=== PATIENT | male | born 1940 | race Caucasian/White ===

== ENCOUNTER → 2023-04-21 12:43 | Outpatient (CLI) | payer MEDICARE, SELFPAY ==
[2023-04-21 13:14] LABS: Basophils # 0.1 K/mm3 (0-0.2); Basophils % 1.2 % (0.1-2.0); Eosinophils # 0.3 K/mm3 (0.0-0.4); Hematocrit 46.7 % (42.0-52.0); Hemoglobin 14.5 g/dL (14.1-18.0); Lymphocytes # 1.8 K/mm3 (0.7-4.5); Lymphocytes % 23.8 % (10-50); Mean Corpuscular HGB Conc 31.1 g/dL (31.8-35.4); Mean Corpuscular Hemoglobin 30.1 pg (27.0-31.2); Mean Corpuscular Volume 96.8 fl (80-94); Mean Platelet Volume 8.6 fl (7.4-10.4); Monocytes # 0.6 K/mm3 (0.1-1.0); Monocytes % 8.1 % (1.7-9.3); Neutrophils # 4.7 K/mm3 (1.8-7.8); Neutrophils % 62.9 % (37.0-80.0); Platelet Count 263 K/mm3 (142-424); Red Blood Count 4.82 M/mm3 (4.60-6.20); White Blood Count 7.4 K/mm3 (4.8-10.8)
[2023-04-21 13:49] LABS: Anion Gap 17.4 mEq/L (5-15); Blood Urea Nitrogen 19 mg/dl (9-20); Calcium 8.8 mg/dl (8.4-10.2); Carbon Dioxide 23 mmol/L (22.0-30.0); Chloride 103 mmol/L (98-107); Estimated Glomerular Filt Rate 81 ml/min (>60); GFR (African American) 98 ML/MIN (>60); Glucose 101 mg/dl (74-100); Potassium 4.4 mmoL/L (3.5-5.1); Sodium 139 mmol/L (136-145)
[2023-04-21 13:51] LABS: Alanine Aminotransferase 56 U/L (12-78); Albumin Level 4.3 g/dl (3.5-5.0); Alkaline Phosphatase 130 U/L (38-126); Aspartate Amino Transferase 49 U/L (17-59); Bilirubin,Unconjugated 0.9 mg/dL (0.0-1.1); Chol/HDL Ratio 3.6 (1-3.5); Cholesterol 165 mg/dl (140-200); HDL Cholesterol 46 mg/dl (40-60); Total Protein,Serum 7.5 g/dl (6.3-8.2); Triglycerides 108 mg/dl (30-150); VLDL Cholesterol 22 mg/dL (0-40)
[2023-04-21 14:02] LABS: Direct LDL Cholesterol 93.76 mg/dL (100-129)
[2023-04-21 14:06] LABS: Free T4 (Free Thyroxine) 1.64 ng/dl (0.78-2.19)
[2023-04-21 14:21] LABS: Thyroid Stimulating Hormone 1.38 uIU/mL (0.465-4.68)
== END ==
PROVIDERS: Visit Provider Internal Medicine
DX: I45.10 Unspecified right bundle-branch block (principal); I48.91 Unspecified atrial fibrillation; R01.1 Cardiac murmur, unspecified; R06.00 Dyspnea, unspecified; E11.9 Type 2 diabetes mellitus without complications; I63.9 Cerebral infarction, unspecified; I11.9 Hypertensive heart disease without heart failure
CPT/HCPCS: 36415; 80048; 80061; 80076; 84439; 84443; 85025; 93306

== ENCOUNTER 2024-01-11 12:43 | Outpatient (CLI) | payer MEDICARE, SELFPAY ==
[2024-01-11 13:10] LABS: Basophils # 0.1 K/mm3 (0-0.2); Basophils % 1.3 % (0.1-2.0); Eosinophils # 0.3 K/mm3 (0.0-0.4); Eosinophils % 3.5 % (0.1-12.0); Hematocrit 38.9 % (42.0-52.0); Hemoglobin 12.2 g/dL (14.1-18.0); Lymphocytes # 1.6 K/mm3 (0.7-4.5); Lymphocytes % 22.7 % (10-50); Mean Corpuscular HGB Conc 31.4 g/dL (31.8-35.4); Mean Corpuscular Hemoglobin 32.9 pg (27.0-31.2); Mean Corpuscular Volume 104.7 fl (80-94); Monocytes # 0.7 K/mm3 (0.1-1.0); Neutrophils # 4.5 K/mm3 (1.8-7.8); Neutrophils % 62.4 % (37.0-80.0); Platelet Count 247 K/mm3 (142-424); Red Blood Count 3.72 M/mm3 (4.60-6.20); Red Cell Distribution Width 15.3 % (11.5-17.5); White Blood Count 7.2 K/mm3 (4.8-10.8)
[2024-01-11 13:49] LABS: Albumin Level 4.5 g/dl (3.5-5.0); Alkaline Phosphatase 129 U/L (38-126); Bilirubin,Direct 0.2 mg/dl (0.0-0.4); Bilirubin,Indirect 1.2 mg/dL (0.0-0.9); Bilirubin,Total 1.4 mg/dl (0.2-1.3); Bilirubin,Unconjugated 1.1 mg/dL (0.0-1.1); Calcium 8.9 mg/dl (8.4-10.2); Carbon Dioxide 18 mmol/L (22.0-30.0); Cholesterol 162 mg/dl (140-200); Glucose 105 mg/dl (74-100); HDL Cholesterol 41 mg/dl (40-60); Potassium 4.2 mmoL/L (3.5-5.1); Sodium 141 mmol/L (136-145); Total Protein,Serum 7.7 g/dl (6.3-8.2); Triglycerides 64 mg/dl (30-150); VLDL Cholesterol 13 mg/dL (0-40)
[2024-01-11 14:02] LABS: Direct LDL Cholesterol 94.07 mg/dL (100-129)
[2024-01-11 14:06] LABS: Free T4 (Free Thyroxine) 1.51 ng/dl (0.78-2.19)
[2024-01-11 14:41] LABS: Anion Gap 15.2 mEq/L (5-15); Blood Urea Nitrogen 34 mg/dl (9-20); Chloride 112 mmol/L (98-107); Estimated Glomerular Filt Rate 58 ml/min (>60); GFR (African American) 70 ML/MIN (>60)
[2024-01-11 15:13] LABS: Thyroid Stimulating Hormone 2.23 uIU/mL (0.465-4.68)
[2024-01-11 15:42] LABS: Alanine Aminotransferase 22 U/L (12-78); Aspartate Amino Transferase 30 U/L (17-59)
== END 2024-01-11 23:59 ==
LOC: LAB 12:44
PROVIDERS: PCP Family Medicine; Visit Provider Internal Medicine
DX: R06.00 Dyspnea, unspecified (principal); R01.1 Cardiac murmur, unspecified; I48.91 Unspecified atrial fibrillation; I45.10 Unspecified right bundle-branch block; R60.9 Edema, unspecified; K21.9 Gastro-esophageal reflux disease without esophagitis; I11.9 Hypertensive heart disease without heart failure; Z72.0 Tobacco use
CPT/HCPCS: 36415; 80048; 80061; 80076; 84439; 84443; 85025

== ENCOUNTER 2024-03-07 12:26 | Outpatient (CLI) | payer MEDICARE, SELFPAY ==
[2024-03-07 13:08] LABS: Basophils # 0.1 K/mm3 (0-0.2); Basophils % 1.2 % (0.1-2.0); Eosinophils # 0.1 K/mm3 (0.0-0.4); Eosinophils % 1.7 % (0.1-12.0); Hematocrit 37.3 % (42.0-52.0); Hemoglobin 11.9 g/dL (14.1-18.0); Lymphocytes # 1.2 K/mm3 (0.7-4.5); Lymphocytes % 22.9 % (10-50); Mean Corpuscular Hemoglobin 32.2 pg (27.0-31.2); Mean Corpuscular Volume 100.5 fl (80-94); Mean Platelet Volume 8.9 fl (7.4-10.4); Monocytes # 0.5 K/mm3 (0.1-1.0); Monocytes % 9.3 % (1.7-9.3); Neutrophils # 3.3 K/mm3 (1.8-7.8); Neutrophils % 64.9 % (37.0-80.0); Platelet Count 219 K/mm3 (142-424); Red Blood Count 3.71 M/mm3 (4.60-6.20); Red Cell Distribution Width 16.4 % (11.5-17.5)
[2024-03-07 13:33] LABS: Anion Gap 18.1 mEq/L (5-15); Blood Urea Nitrogen 20 mg/dl (9-20); Carbon Dioxide 16 mmol/L (22.0-30.0); Chloride 111 mmol/L (98-107); Estimated Glomerular Filt Rate 72 ml/min (>60); Potassium 4.1 mmoL/L (3.5-5.1); Sodium 141 mmol/L (136-145)
[2024-03-07 13:34] LABS: Alanine Aminotransferase 24 U/L (12-78); Albumin Level 4.3 g/dl (3.5-5.0); Alkaline Phosphatase 145 U/L (38-126); Aspartate Amino Transferase 36 U/L (17-59); Bilirubin,Direct 0.6 mg/dl (0.0-0.4); Bilirubin,Indirect 1.3 mg/dL (0.0-0.9); Bilirubin,Total 1.9 mg/dl (0.2-1.3); Bilirubin,Unconjugated 1.3 mg/dL (0.0-1.1); Calcium 9.1 mg/dl (8.4-10.2); Chol/HDL Ratio 2.6 (1-3.5); Cholesterol 150 mg/dl (140-200); GFR (African American) 87 ML/MIN (>60); Glucose 98 mg/dl (74-100); HDL Cholesterol 58 mg/dl (40-60); Total Protein,Serum 7.4 g/dl (6.3-8.2); Triglycerides 81 mg/dl (30-150); VLDL Cholesterol 16 mg/dL (0-40)
[2024-03-07 13:45] LABS: C-Reactive Protein 9.1 mg/L (0-4); Direct LDL Cholesterol 83.88 mg/dL (100-129)
[2024-03-07 13:51] LABS: Free T4 (Free Thyroxine) 1.71 ng/dl (0.78-2.19)
--- NOTE | 2024-03-07 13:57 | US_ITS ---
FINAL REPORT CLINICAL HISTORY: alcohol intake, weight loss, edema FINDINGS: RIGHT UPPER QUADRANT ULTRASOUND Sonographic images of the right upper quadrant were obtained. The pancreas is partially obscured.The liver has an unremarkable appearance.The gallbladder appears normal without evidence of gallstones.The common duct measures 6 mm which is normal for age. There is a 2.6 cm cyst or mass in the right kidney. IMPRESSION: Cyst or mass in the right kidney. Recommend renal mass protocol CT. Reviewed, Interpreted and Dictated by Camron Hill III, MD Transcribed by Joselin Franco Authenticated and [facility]
[2024-03-07 14:04] LABS: Prostate Specific Ag Screen 2.7 ng/ml (0.0-4.0); Thyroid Stimulating Hormone 1.06 uIU/mL (0.465-4.68)
[2024-03-07 14:33] LABS: Erythrocyte Sedimentation Rate 41 mm/hr (0-20)
[2024-03-07 14:40] LABS: Vitamin B12 499 pg/mL (239-931)
[2024-03-07 14:43] LABS: Folate 7.34 ng/mL
[2024-03-07 15:14] LABS: Reticulocyte % (Auto) 1.8 % (0.9-3.2)
[2024-03-14 01:12] LABS: 1,25 Dihydroxy Vitamin D 52 pg/mL (.); 1,25-Dihydroxy, Vitamin D-2 <10 pg/mL (.); 1,25-Dihydroxy, Vitamin D-3 42 pg/mL (.)
== END 2024-03-07 23:59 | disposition home or self-care (01) ==
PROVIDERS: Nurse Practitioner Family; PCP Family Medicine; Visit Provider Internal Medicine
DX: R60.9 Edema, unspecified (principal); I48.91 Unspecified atrial fibrillation; I20.89 Other forms of angina pectoris; R06.00 Dyspnea, unspecified; F10.20 Alcohol dependence, uncomplicated; R63.4 Abnormal weight loss; Z12.5 Encounter for screening for malignant neoplasm of prostate; G62.9 Polyneuropathy, unspecified; D64.9 Anemia, unspecified; Z79.899 Other long term (current) drug therapy; R26.81 Unsteadiness on feet
CPT/HCPCS: 36415; 76705; 80048; 80061; 80076; 82607; 82652; 82746; 83735; 84439; 84443; 85025; 85044; 85651; 86140; G0103

== ENCOUNTER 2024-03-23 12:07 | Outpatient (CLI) | payer MEDICARE, SELFPAY ==
--- NOTE | 2024-03-23 12:08 | CT_ITS ---
APPROVED REPORT Interior Design Director: CLINICAL INDICATION Chest Pain TECHNIQUE Image Acquisition: A 128 slice MDCT scanner ([employer] Boarda View) was used for data acquisition. A noncontrast coronary calcium scan was performed. A CT attenuation threshold of 130 Hounsfield units (HU) was used for the detection of calcium in contiguous voxels of 1 sq mm in area to be counted as individual lesions. Bolus tracking in the ascending aorta with a threshold of 180 HU was performed. Immediately afterwards, ECG synchronized cardiac CT was then performed from the cardiac base to apex using retrospective gating with ECG tube current modulation. A total of 85 mL of Isovue 370 mg/mL contrast medium was administered at 5 mL/sec followed by a saline flush using a biphasic injection protocol. A tube voltage of 120 KVp was used. The patient received the following medications prior to the cardiac CT. 0.8 mg of sublingual nitroglycerin The average heart rate at the time of acquisition was 57 bpm and regular. Image Reconstruction Transaxial images were reconstructed at 0.67 mm slide thickness. Data was reviewed interactively on an advanced workstation capable of 2 and 3-dimensional displays in all conventional reconstruction formats, including multiplanar reformations, maximum intensity projections, curved multiplanar reformations, and volume rendered reconstructions. When applicable, selected routine images describing the relevant coronary anatomy and pathology were saved and sent to PACS. Complications None Technical Quality Overall image quality was good. Coronary artery opacification was adequate. Total DLP (Dose-Length Product) is 3001.9 mGy-cm. The reported value represents the total of one or more individual components during the CT acquisition of this date and at this time, and as such, the same value may appear in more than one CT report depending on the interpreting/reporting physicians. COMPARISON None FINDINGS CT Coronary Calcium Scoring LMA (Left Main Artery) = 80 LAD (Left Anterior Descending) = 1627 LCX (Left Coronary Circumflex) = 375 RCA (Right Coronary Artery) = 1515 Total Calcium Score = 3597 using the AJ-130 method. The observed calcium score of 3597 is at 91st percentile for subjects of the same age, sex, and race/ethnicity. The interpretation of the calcium heart score is based on the following continuum*: 0 = no calcified plaque detected (risk of coronary artery disease is very low ??? less than 5%) 1-10 = calcium detected in extremely minimal levels (risk of coronary diseases is still low ??? less than 10%) 11-100 = mild levels of plaque detected with certainty (mild or minimal narrowing of heart arteries is likely) 101-400 = definite,at least moderate levels of plaque detected (relatively high risk of a heart attack within 3-5 years) >401-999 = extensive levels of plaque detected (high risk of heart attack, high levels of vascular disease are present, high likelihood of at least one significant coronary narrowing) *The calcium heart score quantifies the burden of coronary calcification/plaque in the coronary arteries. The calcium heart score is not able to evaluate the presence or burden of non-calcified (i.e. soft) plaque. There is also identifiable calcification in the aortic valve, mitral annulus, and ascending and descending thoracic aorta. Coronary CT Angiography The coronary arterial system is right dominant. Quantitative Stenosis Grading: Left Main (LM): The left main originates normally from the left sinus of Valsalva. The LM bifurcates into the left anterior descending artery and left circumflex artery. There is calcified plaque in the distal LM, with up to 25-49% luminal stenosis. Left Anterior Descending (LAD) and Diagonal Branches: The LAD gives off 3 diagonal branch(es). There is mixed calcified/noncalcified plaque in the proximal and mid LAD, with up to 70-90% luminal stenosis. There is no evidence of LAD-myocardial bridge. Left Circumflex (LCX) and Obtuse Marginals (OM): The LCX gives off 2 Obtuse Marginal (OM) branch(es). There is mixed calcified/noncalcified plaque in the proximal LCx, with up to 70-90% luminal stenosis. Right Coronary Artery (RCA): The RCA originates normally from the right sinus of Valsalva. The RCA gives off a posterior descending artery (PDA) and posterolateral (PL) branches. There is mixed calcified/noncalcified plaque in the proximal RCA, with incomplete opacification in the distal segments, suggestive of possible total/subtotal occlusion. Non-Coronary Cardiac Findings: Analysis of the left ventricular (LV) structure and function was performed after 3-D reconstruction of the LV from axial images, with user-corrected automatic contouring for assessment of LV volumes and user-defined reconstruction from oblique planes for measurement of 3-D cardiac structure and function. -The left ventricle systolic function is normal. -There is no left atrial appendage filling defect. Two right pulmonary veins and two left pulmonary veins drain normally into the left atrium. -No pericardial thickening or calcification. -Central and branch pulmonary arteries in the [id number] are unremarkable. -Thoracic aorta within the visualized thoracic aortic-branches in the [id number] is unremarkable. Extracardiac Structures No significant extra-cardiac findings. Note, however, that this study is focused on the cardiac findings. IMPRESSION -Extensive coronary calcification with an Agatston score = 3597 using the AJ-130 method. -The observed calcium score of 3597 is at 91st percentile for subjects of the same age, sex, and race/ethnicity. -Presence of triple-vessel significant flow-limiting atherosclerosis, with possible total/subtotal occlusion of the RCA. -CAD-RADS 5. Management recommendations per ACC/AHA guidelines*, as clinically appropriate. -Incidental calcification of the aortic valve, mitral annulus, and ascending and descending thoracic aorta. *Recommendations: CAD RADS 0: Reassurance. Consider non-atherosclerotic causes of chest pain. CAD RADS 1: Consider non-atherosclerotic causes of chest pain. Consider preventive therapy and risk factor modification. CAD RADS 2: Consider non-atherosclerotic causes of chest pain. Consider preventive therapy and risk factor modification, particularly for patients with nonobstructive plaque in multiple segments. CAD RADS 3: Consider further functional testing. Consider symptom-guided anti-ischemic and preventive pharmacotherapy as well as risk factor modification per published guideline statements. CAD RADS 4A: Consider further functional testing or invasive coronary angiography with revascularization per published guideline statements. Consider symptom-guided anti-ischemic and preventive pharmacotherapy as well as risk factor modification per published guideline statements. CAD RADS 4B: Invasive coronary angiography recommended with revascularization per published guideline statements. Consider symptom-guided anti-ischemic and preventive pharmacotherapy as well as risk factor modification per published guideline statements. CAD RADS 5: Consider invasive angiography and/or viability assessment with revascularization per published guideline statements. Consider symptom-guided anti-ischemic and preventive pharmacotherapy as well as risk factor modification per published guideline statements. CRITICAL RESULT None COMMUNICATION Per this written report The coronary and cardiac findings of this CCTA were reviewed, reported, and signed by Britton Stevenson MD (Web Portal Developer) Conclusion Electronically signed by : Cony Stevenson MD 03/28/2024 16:26:26
[2024-03-23 12:25] VITALS: BP 126/62; PULSE 41; RESP 18; TEMP 36.6; O2SAT 99
[2024-03-23 12:33] VITALS: BMI 29.7
[2024-03-23 12:39] VITALS: BP 121/61; PULSE 44; RESP 18; O2SAT 98
[2024-03-23 12:43] VITALS: BP 126/51; PULSE 46; RESP 18; O2SAT 99
--- NOTE | 2024-03-23 12:51 | CA_ITS ---
APPROVED REPORT EXAM: Comprehensive 2D, Doppler, and color-flow Echocardiogram Photographic Process Worker: MIKAL Vazquez, RVS Ht: 6 ft 3 in Wt: 236lbs BSA: 2.35 BP: 130/56 mmHg Indications: Angina, Afib, Dyspnea, weight loss, smoker, Etoh dependent, Edema 2D Dimensions IVSd 0.80 cm LVEF (Visual) 63.60 % PWd 0.84 cm LA Volume 94.50 mL LVDd 5.36 cm LA Volume Index 39.20 mL/m2 (M/F) 16-34 LVDs 3.49 cm Left Atrium 5.95 cm M-Mode Dimensions RVDd 4.87 cm (0.9-2.6) LA Diam 5.34 cm (1.9-4.0) LVDd 5.32 cm (3.5-5.7) LVDs 3.62 cm (3.5-5.7) IVSd 1.07 cm (0.6-1.1) PWd 1.16 cm (0.6-1.1) EF (Teich) 59.60% EPSs 0.72 cm FS 32.00% EDV (Teich) 136.50 mL ESV (Teich) 55.20 mL LV Diastology E Decel Time 170 (160-240 msec) E/A Ratio 2.28 MED A' 4.60 cm/s LAT A' 7.30 cm/s Aortic Valve GERBER Index 0.42 cm2/m2 AoV Peak Tavares. 339.0 (50-130 cm/s) AO Peak GR. 46.00 mmHg AO Mean GR. 26.50 (<5 mmHg) AO VTI 89.4 (18-25 cm) GERBER (VTI) 1.01 (2.5-4.5 cm2) Mitral Valve MV A Velocity 69.0 (40-130 cm/s) E/A Ratio 2.28 Pulmonary Valve PV Peak Velocity 81.0 (50-150 cm/s) CA End VMAX 200.0 cm/s Tricuspid Valve TR P. Velocity 309.00 cm/s RAP Estimate 10.00 mmHg RVSP 48.20 mmHg Left Ventricle The left ventricle is normal size. The left ventricular systolic function is normal. The left ventricular ejection fraction is within the normal range. There is normal left ventricular wall thickness. There is normal LV segmental wall motion. Diastolic function is indeterminate. LVEF is 55%. Right Ventricle Right ventricle is moderately dilated. Right ventricle is mildly to moderately hypokinetic. Atria Left atrium is mildly dilated. Right atrium is mildly dilated. There is no Doppler evidence of interatrial shunt. Aortic Valve The aortic valve is moderately thickened. Moderate to severe aortic stenosis. Peak velocity 3.8 m/s. Mean AV gradient 38 mmHg. Max AV gradient 90 mmHg. GERBER by continuity equation is 1.1 cm2. SVi 38 ml/m2. Mild aortic regurgitation. Mitral Valve The mitral valve leaflets are mildly thickened. Mild mitral regurgitation. No evidence of mitral valve stenosis. Tricuspid Valve The tricuspid valve leaflets are thin and pliable. Moderate tricuspid regurgitation. RVSP is 40 mmHg + RA pressure. Pulmonic Valve The pulmonary valve is normal in structure. Mild pulmonic regurgitation. Great Vessels The aortic root is normal in size. The ascending aorta is not well-visualized. The IVC is not well-visualized. Pericardium Small sized, circumferential pericardial effusion is present. The largest pocket is noted posteriorly and measures 0.5 cm in diastole. No acute indications of tamponade. Other Information Study Quality: Fair Conclusion Normal LV systolic function. Moderate RV dilation with mild to moderate reduction in RV function. Biatrial dilation. Moderate to severe (peak velocity 3.8 m/s. Mean AV gradient 38 mmHg. Max AV gradient 90 mmHg. GERBER by continuity equation is 1.1 cm2. SVi 38 ml/m2) Mild AI, mild MR, mild PI. Moderate TR. Elevated RVSP 40 mmHg + RA pressure. Compared to prior study from 04/21/2023, the AV peak velocity and gradients, and therefore the severity of , are now worse. Electronically signed by : Cony Stevenson MD 03/29/2024 03:14:14
[2024-03-23 13:00] VITALS: BP 156/63; PULSE 42; RESP 18; O2SAT 99
[2024-03-23 13:03] VITALS: BP 118/42; PULSE 57; RESP 18; O2SAT 99
[2024-03-23 13:09] VITALS: BP 90/46; PULSE 62; RESP 18; O2SAT 98
[2024-03-23] MEDS: IOPAMIDOL-370 (76%);100ML BOTTLE 90 ML IV (13:20)
[2024-03-23] MEDS: 0.9 % SODIUM CHLORIDE 50 ML VIAL IV (13:20)
[2024-03-23] MEDS: SODIUM CHLORIDE 0.9% 10ML SYR (RAD ONLY) 10 ML IV (13:20)
[2024-03-23] MEDS: NITROGLYCERIN 0.4MG SL TABLET 0.800000000000000044 MG SL (13:20)
== END 2024-03-23 13:26 | disposition home or self-care (01) ==
PROVIDERS: PCP Family Medicine; Visit Provider Internal Medicine
DX: R60.9 Edema, unspecified (principal); I48.91 Unspecified atrial fibrillation; I20.89 Other forms of angina pectoris; R06.00 Dyspnea, unspecified; F10.20 Alcohol dependence, uncomplicated; R63.4 Abnormal weight loss; R94.31 Abnormal electrocardiogram [ECG] [EKG]
CPT/HCPCS: 75574; 93306; Q9967

== ENCOUNTER 2024-03-29 12:46 | Outpatient (CLI) | payer MEDICARE, SELFPAY ==
--- NOTE | 2024-03-29 13:02 | CT_ITS ---
FINAL REPORT TECHNIQUE: Axial CT images of the abdomen and pelvis were obtained before and after the administration of IV contrast. This study was performed with techniques to keep radiation doses as low as reasonably achievable (ALARA). Individualized dose reduction techniques using automated exposure control or adjustment of mA and/or kV according to the patient''s size were employed. CLINICAL HISTORY: renal mass protocol FINDINGS: Abdomen: There is a right lower lobe nodule measuring 7 mm. Bilateral lower lobe atelectasis is identified with small pleural effusions. There is cardiomegaly. Small pericardial effusion is noted. The liver has an unremarkable appearance, without evidence of mass or biliary duct dilatation. Gallstones are suspected. The spleen is unremarkable. No adrenal masses present. The pancreas has an unremarkable appearance. No renal mass is identified. There is bilateral wall thickening of the ureters in the renal collecting systems. Since this is diffuse, it is favored to be inflammatory. There is no adenopathy. There is a small amount of ascites. Precontrast images demonstrate no evidence of nephrolithiasis. There is moderate vascular calcification. Significant calcification is seen in the region of the aortic valve leaflets. Pelvis: The appendix is not well visualized. The prostate is diffusely enlarged. There is diffuse bladder wall thickening. There is a small amount of pelvic ascites. There is diffuse colonic diverticulosis without evidence of diverticulitis. There is no evidence of mass or adenopathy. There is no evidence of bowel obstruction. IMPRESSION: No renal stone or mass. Calcifications in the region of the aortic valve leaflets. Diffuse mild urothelial thickening which is nonspecific, likely inflammatory. Diffuse bladder wall thickening, likely inflammatory. Reviewed, Interpreted and Dictated by Camron Hill III, MD Transcribed by Joselin Franco Authenticated and [facility]
== END 2024-03-29 23:59 | disposition home or self-care (01) ==
LOC: RAD 12:49
PROVIDERS: PCP Family Medicine; Visit Provider Internal Medicine
DX: N28.1 Cyst of kidney, acquired (principal); N28.89 Other specified disorders of kidney and ureter
CPT/HCPCS: 74178; Q9967

== ENCOUNTER 2024-03-31 08:48 | Day surgery (SDC) | payer MEDICARE, SELFPAY ==
[2024-03-31] VITALS (12 sets, daily range): BP systolic 106–152; BP diastolic 49–71; PULSE 49–60; RESP 16–20; O2SAT 90–99; BMI 29.9
--- NOTE | 2024-03-31 07:08 | IR_ITS ---
APPROVED REPORT Patient Location: Outpatient Coater Associate: FELIPE Chavez RT (R) PROCEDURES Left heart catheterization Left ventriculogram Selective coronary angiogram INDICATION Abnormal CCTA, Coronary artery disease, Suspected severe aortic stenosis, Preoperative evaluation for TAVR Informed consent was obtained prior to the procedure. COMPLICATIONS NONE Estimated Blood Loss: LESS THAN 10 ML TECHNIQUE One percent lidocaine used to anesthetize the right anterior aspect of the wrist. The right radial artery was accessed via the Seldinger technique. A 6 Nepalese sheath was placed in the right radial artery. 2.5 mg of Verapamil, 800 mcg of nitroglycerin, 1mg Lidocaine and 5000 U Heparin were given through the arterial sheath. The papa catheter was also used to perform left heart catheterization, left ventriculogram and selective coronary angiogram. At the end of the procedure the sheath was removed good hemostasis was achieved using Traclet band, patient was transferred to the postop holding area in stable condition. ANGIOGRAPHIC RESULTS The left main artery Normal The left anterior descending artery Has proximal concentric 30% stenosis followed by mid vessel calcified 50% stenoses. The LAD is large and wraps the apex The circumflex artery Dominant with proximal calcified 20% concentric stenosis with diffuse 10 to 20% stenoses in the third obtuse marginal artery The right coronary artery Nondominant and has an ostial 50% stenosis with mid vessel calcified 50% stenoses and distal calcified 70 and 80% stenosis The PATEL ventriculogram reveals Preserved ejection fraction estimated 55% The left ventricular end-diastolic pressure 30 mmHg A 40 mm transaortic valve gradient was identified IMPRESSION Coronary artery disease as described above Preserved ejection fraction Elevated LVEDP 40 mm transaortic valve gradient PLAN 1. Patient has an appointment to see structural heart disease interventional cardiology [facility] toward the end of April. Prior to the appointment I would like to repeat the echocardiogram under Dr. Hanks's guidance to specifically assess for aortic valve stenosis 2. Medical management for coronary disease 3. Patient will be started on low-dose diuretics for the elevated LVEDP Electronically signed by : Joseph Lake MD 03/31/2024 12:48:49
[2024-03-31 09:48] LABS: Chloride 106 mmol/L (98-107); Potassium 4.2 mmoL/L (3.5-5.1); Sodium 134 mmol/L (136-145)
[2024-03-31 09:51] LABS: Anion Gap 11.2 mEq/L (5-15); Blood Urea Nitrogen 24 mg/dl (9-20); Calcium 8.5 mg/dl (8.4-10.2); Carbon Dioxide 21 mmol/L (22.0-30.0); Creatinine Clearance Estimated 81 mL/min (50-200); Estimated Glomerular Filt Rate 64 ml/min (>60); GFR (African American) 78 ML/MIN (>60); Glucose 110 mg/dl (74-100)
[2024-03-31] MEDS: LIDOCAINE 1% 10ML MDV 20 ML IJ (11:24)
[2024-03-31] MEDS: HEPARIN 1,000 UNITS/ML 10ML VIAL (CATH LAB) 10000 UNIT IV (11:24)
[2024-03-31] MEDS: VERAPAMIL 2.5MG/ML 2ML VIAL 2.5 MG IV (11:24)
[2024-03-31] MEDS: 0.9 % SODIUM CHLORIDE 500 ML 25 ML IV (11:24)
[2024-03-31] MEDS: diphenhydrAMINE 50MG/ML VIAL 50 MG IV (11:24)
[2024-03-31] MEDS: HEPARIN 1,000 UNITS/500ML NS (CATH LAB) 3000 UNIT IV (11:24)
[2024-03-31] MEDS: NITROGLYCERIN 800MCG/8ML SYR (CATH LAB) 800 MCG IA (11:25)
[2024-03-31] MEDS: FENTANYL 100MCG/2ML VIAL 50 MCG IV (11:38)
[2024-03-31] MEDS: MIDAZOLAM HCL 1MG/1ML 5ML VIAL 1 MG IV (11:38)
--- NOTE | 2024-03-31 13:21 | SUR.PHASEII ---
Dr. Lake changing pt's medications (Losartan stopped, Amlodipine stopped, Diovan HCTZ was added). Pt and pt's educated per Dr. Lake and Boiler Repairman staff.
[2024-03-31] MEDS: IOPAMIDOL-370 (76%);100ML BOTTLE 90 ML IV (13:36)
== END 2024-03-31 14:54 | disposition home or self-care (01) ==
PROVIDERS: PCP Family Medicine; Visit Provider Internal Medicine
DX: I25.10 Atherosclerotic heart disease of native coronary artery without angina pectoris (principal); G62.9 Polyneuropathy, unspecified; Z12.5 Encounter for screening for malignant neoplasm of prostate; R63.4 Abnormal weight loss; F10.20 Alcohol dependence, uncomplicated; R06.09 Other forms of dyspnea; I20.89 Other forms of angina pectoris; R60.9 Edema, unspecified; I48.91 Unspecified atrial fibrillation; Z01.810 Encounter for preprocedural cardiovascular examination; R93.1 Abnormal findings on diagnostic imaging of heart and coronary circulation
CPT/HCPCS: 80048; 93458; 99152; 99153; C1725; C1769; J1644; Q9967

== ENCOUNTER 2024-09-12 12:35 | Outpatient (CLI) | payer MEDICARE, SELFPAY ==
--- OUTSIDE RECORDS SUMMARY | 2024-09-12 12:41 | XMS_ITS | Encounter Summary ---
Author Organization Healthcare Address [address] [place] [address] Care Team Providers Care Injection Operator Name Role Phone Unavailable Primary Care Provider Unavailabl e Encounter Details Date Type Department Care Team (Late st Contact Info) Description 03/23/2024 Orders Only External Location [address] [place] [phone] Joseph Lake MD [address] [address] Social History Tobacco Use Types Packs/Day Years Used Date Smoking Tobacco: Never Assessed Sex and Gender Information Value Date Recorded Sex Assigned at Not on file Legal Sex Male 4:06 PM EDT Gender Identity Not on file Sexual Orientation Not on file documented as of this encounter Plan of Treatment Upcoming Encounters Date Type Department Care Team (Late st Contact Info) Description 05/18/2025 1:00 PM EDT Appointment Cardiac Imaging [address] [place] [phone] 05/18/2025 2:30 PM EDT Office Visit [facility] [place] [facility] [address] [place] [phone] Rahat Luna MD [address] [place] [address] documented as of this encounter Procedures Procedure Name Priority Date/Time Associated Diagnosis Comments CT OUTSIDE IMAGES 03/23/2024 1:00 PM EDT documented in this encounter Results * CT OUTSIDE IMAGES (03/23/2024 1:00 PM EDT) Anatomical Region Laterality Modality Computed Tomogra phy 03/23/2024 1:00 PM EDT us Joseph Lake MD IMG CT PROCEDURES Final Re sult documented in this encounter Visit Diagnoses Not on filedocumented in this encounter
--- OUTSIDE RECORDS SUMMARY | 2024-09-12 12:41 | XMS_ITS | Encounter Summary ---
Author Organization Healthcare Address [address] [place] [address] Care Team Providers Care Roof Painter Name Role Phone Unavailable Primary Care Provider Unavailabl e Encounter Details Date Type Department Care Team (Late st Contact Info) Description 03/23/2024 Orders Only External Location [address] [place] [phone] Joseph Lake MD [address] [address] Social History Tobacco Use Types Packs/Day Years [...] PM EDT Appointment Cardiac Imaging [address] [place] [phone] 05/18/2025 2:30 PM EDT Office Visit [facility] [place] [facility] [address] [facility] [place] [phone] Rahat Luna MD [address] [place] [address] documented as of this encounter [...]
--- OUTSIDE RECORDS SUMMARY | 2024-09-12 12:41 | XMS_ITS | Encounter Summary ---
Author Organization [facility] Address [address] [place] [address] Care Team Providers Care Circuit Rider Name Role Phone Dora Hernandez MD Primary Care Provider Reason for Referral * Imaging (Routine) - Pending Review Specialty Diagnoses / Procedures Referred By Hal thompson Referred To Contact Cardiology Diagnoses Nonrheumatic aortic valve stenosis Paroxysmal atrial fibrillation (CMS/HCC) Procedures Echo, Adult Transthoracic Complete Hermila Amaya PA [address] [place] [address] Phone: tel: fax: Referral ID Status Reason Start Date Expiration Date Visits Requested Visits Authorized [id number] Pending Review Perform Procedure 05/19/2024 11/18/2025 1 1 Encounter Details Date Type Department Care Team (Late st Contact Info) Description 05/19/2024 2:30 PM EDT Office Visit [facility] [address] [facility]. [address] [place] [address] Rahat Luna MD [address] [place] [address] Nonrheumatic aortic valve stenosis (Primary Dx); Paroxysmal atrial fibrillation (CMS/HCC) Social History Tobacco Use Types Packs/Day Years Used Date Smoking Tobacco: Never Assessed Sex and Gender Information Value Date Recorded Sex Assigned at Not on file Legal Sex Male 4:06 PM EDT Gender Identity Not on file Sexual Orientation Not on file documented as of this encounter Last Filed Vital Signs Vital Sign Reading Time Taken Comments Blood Pressure 165/64 05/19/2024 2:13 PM EDT Pulse 62 05/19/2024 2:13 PM EDT Temperature - - Respiratory Rate - - Oxygen Saturation 98% 05/19/2024 2:13 PM EDT Inhaled Oxygen Concentration - - Weight - - Height 190.5 cm (6' 3 ) 05/19/2024 2:13 PM EDT Body Mass Index - - documented in this encounter Miscellaneous Notes * Progress Notes - Hermila Amaya PA - 05/19/2024 2:30 PM EDT Images from the original note were not included. Note to patient: The Cures Act makes medical notes like these available to patients inthe interest of transparency. However, be advised this is a medical document. It is intended as peer to peer communication. It is written in medical language and may contain abbreviations or verbiagethat are unfamiliar. It may appear blunt or direct. Medical documents are intended to carry relevant information, facts as evident, and the clinical opinion of the practitioner. Structural Heart Consult Note Jac Garvin is a 83 y.o. male who presents today for consultation with Dr. Luna at the request of Dr. Lake in regard to aortic stenosis. Patient's medical history is significant for atrial fibrillation, aortic stenosis, and tobacco abuse. Patient states he is doing well. He has improvement in his breathing overall since Dr. Lake cutback on his medicine. He is active around his land and mows. Denies any symptoms of chest pain, dizziness or shortness of breath. TTE 03/23/24: EF 55%, mod-severe aortic stenosis, GERBER 1.1, gradients of 38/90mmHg, 3.8m/s mild AR Cath 03/31/24: LAD 50%, Lcx 20%, 70-80% distal RCA with a 40mmHg transaortic gradient Review of symptoms 14 Point ROS reviewed and is otherwise negative except as per HPI. The following portions of the chart were reviewed this encounter and updated as appropriate: Allergies Meds Problems Med Hx Surg Hx Fam Hx Medications Current Outpatient Medications Medication Sig Dispense Refill cyanocobalamin 50 MCG tablet Take 1 tablet (50 mcg) by mouth 1 (one) time each day. ezetimibe (Zetia) 10 MG tablet Take 1 tablet (10 mg) by mouth 1 (one) time each day. gabapentin (Neurontin) 100 MG capsule Take 1 capsule (100 mg) by mouth. Take 2 tablets twice per day LORazepam (Ativan) 0.5 MG tablet Take 1 tablet (0.5 mg) by mouth every 6 (six) hours if needed for anxiety. Take 1 twice per day as needed metoprolol succinate XL (Toprol-XL) 50 MG 24 hr tablet Take 1 tablet (50 mg) by mouth 1 (one) time each day. Do not crush or chew. Take 0.5 tablet every day [id number]-zhkpw acid-coenzyme q10 (Preservision AREDS 2) capsule Take 1 capsule by mouth 1 (one) time each day. rivaroxaban (Xarelto) 2.5 MG tablet Take by mouth. valsartan-hydroCHLOROthiazide (Diovan-HCT) 320-25 MG tablet Take 1 tablet by mouth 1 (one) time each day. No current facility-administered medications for this visit. Physical Exam Physical Exam Vitals and nursing note reviewed. Constitutional: Appearance: Normal appearance. HENT: Head: Normocephalic and atraumatic. Nose: Nose normal. Mouth/Throat: Mouth: Mucous membranes are moist. Eyes: Conjunctiva/sclera: Conjunctivae normal. Cardiovascular: Rate and Rhythm: Normal rate. Rhythm irregular. Pulses: Normal pulses. Heart sounds: S1 normal and S2 normal. Murmur heard. Harsh midsystolic murmur is present at the upper right sternal border radiating to the neck. Pulmonary: Effort: Pulmonary effort is normal. Breath sounds: Normal breath sounds. Abdominal: General: Abdomen is flat. Palpations: Abdomen is soft. Musculoskeletal: General: Normal range of motion. Cervical back: Neck supple. Skin: General: Skin is warm and dry. Neurological: General: No focal deficit present. Mental Status: He is alert and oriented to person, place, and time. Psychiatric: Attention and Perception: Attention normal. Mood and Affect: Mood normal. Behavior: Behavior normal. Visit Vitals BP (!) 165/64 (BP Location: Left arm, Patient Position: Sitting) Pulse 62 Ht 1.905 m (6' 3 ) SpO2 98% BMI 31.12 kg/m?? Imaging No echocardiogram results found for the past 12 months Labs No results found for: WBC , RBC , HGB , HCT , LABPLAT Lab Results Component Value Date/Time BUN 21 12/03/2022 1052 No results found for: AST , ALT , ALKPHOS No results found for: CHOL , LDL , HDL , TRIGLYCERIDE No results found for: HGBA1C No results found for: TSH , FREET4 Assessment and Plan #Aortic Stenosis --Echo images reviewed by Dr. Luna showing moderate aortic stenosis --NYHA Class II --No significant symptoms --Will monitor closely for progression --Repeat echo in 1 year #A fib --Continue AC with Xarelto #HTN --Managed by Dr. Lake --Continue current therapy Follow-up in 1 year with echo prior I spent 70 minutes performing the following components of the encounter (on the day of the encounter): reviewing History, examining the patient, reviewing imaging and/or labs, Independently interpreting echocardiogram, ECG and/or other imaging results, counseling the patient and family/caregiver, communicating with other health childcare center director, and entering clinical information in the EHR. Greater than 50% of the time spent on the encounter was face to face providing direct patient care, counseling for the patient/caregiver, and care coordination. Hermila Amaya PA-C Structural MARITZA documented in this encounter Plan of Treatment Upcoming Encounters Date Type Department Care Team (Late st Contact Info) Description 05/18/2025 1:00 PM EDT Appointment Cardiac Imaging [address] [place] [phone] 05/18/2025 2:30 PM EDT Office Visit [facility] [address] [place] [address] Rahat Luna MD [address] [place] [address] Scheduled Orders Name Type Priority Associated Diagnoses Orde r Schedule Echo, Adult Transthoracic Complete Echocardiography Routine Nonrheumatic aortic valve stenosis Paroxysmal atrial fibrillation (CMS/HCC) 1 Occurrences starting 05/19/2024 until 05/19/2026 documented as of this encounter Visit Diagnoses Diagnosis Nonrheumatic aortic valve stenosis- Primary Paroxysmal atrial fibrillation (CMS/HCC) Atrial fibrillation documented in this encounter Additional Health Concerns Assessment Noted Time A Body Mass Index follow-up plan has been documented for the patient 05/19/2024 3:39 PM EDT documented as of this encounter Care Teams Circuit Rider Relationship Specialty Start Date End Date Dora Hernandez MD [address] [place] [address] PCP - General 05/19/24 documented as of this encounter
--- OUTSIDE RECORDS SUMMARY | 2024-09-12 12:41 | XMS_ITS | Encounter Summary ---
Author Organization Healthcare Address [address] [address] Care Team Providers Care Heel Breaster Name Role Phone Unavailable Primary Care Provider Unavailabl e Encounter Details Date Type Department Care Team (Latest Contact Info) Description 04/21/2023 2:20 PM EDT Ancillary Procedure [facility] [address] [place] [address] [place] [address] Murmur; SOB (shortness of breath); A-fib (CMS/HCC) Social History Tobacco Use Types Packs/Day Years Used Date Smoking Tobacco: Never Assessed Sex and Gender Information Value Date Recorded Sex Assigned at Not on file Legal Sex Male 4:06 PM EDT Gender Identity Not on file Sexual Orientation Not on file documented as of this encounter Last Filed Vital Signs Vital Sign Reading Time Taken Comments Blood Pressure 153/64 04/21/2023 4:10 PM EDT Pulse 55 04/21/2023 4:10 PM EDT Temperature - - Respiratory Rate - - Oxygen Saturation - - Inhaled Oxygen Concentration - - Weight 113 kg (249 lb) 04/21/2023 4:10 PM EDT Height 190.5 cm (6' 3 ) 04/21/2023 4:10 PM EDT Body Mass Index 31.12 04/21/2023 4:10 PM EDT documented in this encounter Plan of Treatment Upcoming Encounters Date Type Department Care Team (Late st Contact Info) Description 05/18/2025 1:00 PM EDT Appointment Cardiac Imaging [address] [place] [phone] 05/18/2025 2:30 PM EDT Office Visit [facility] [place] [facility] [address] [place] [phone] Rahat Luna MD [address] [place] [address] documented as of this encounter Procedures Procedure Name Priority Date/Time Associated Diagnosis Comments ADULT ECHO OUTSIDE READ Routine 04/21/2023 4:10 PM EDT Murmur SOB (shortness of breath) A-fib (CMS/HCC) documented in this encounter Results * ADULT ECHO OUTSIDE READ (04/21/2023 4:10 PM EDT) BSA 2.41 m2 BERNA ISCV Height 190.5 BERNA ISCV Weight 112.9 BERNA ISCV Baseline Systolic BP 153 BERNA ISCV Baseline Diastolic BP 64 BERNA ISCV Heart Rate 64 BERNA ISCV LVIDd 58 mm BERNA ISCV IVSd 8 mm BERNA ISCV LVPWd 11 mm BERNA ISCV LV MASS(C)D 219 g BERNA ISCV LV RWT 0.33 mm BERNA ISCV LVIDs 31 mm BERNA ISCV Ao Root Diam 32 mm BERNA ISCV TR Vmax 279.0 cm/s BERNA ISCV TR Max PG 31 mmHG BERNA ISCV RV base 51 mm BERNA ISCV LV Lat e' Velocity 8.4 cm/s BERNA ISCV LV Sept e' [place] 6.7 cm/s BERNA ISCV RV s' [place] 10.5 cm/s BERNA ISCV MV E Vmax 101.4 cm/s BERNA ISCV Lat E/e' 12.1 BERNA ISCV Sep E/e' 15.1 BERNA ISCV Avg E/e' 13.6 BERNA ISCV Ao V2 VTI 85.0 cm BERNA ISCV Ao mean PG 28 mmHg BERNA ISCV Ao V2 Vmax 369.6 cm/s BERNA ISCV Ao max PG 55 mmHg BERNA ISCV Ao V2 mean 240.7 cm/s BERNA ISCV LV V1 VTI 26.1 cm BERNA ISCV LV V1 Vmax 103.4 cm/s BERNA ISCV AV VTI Index 0.31 BERNA ISCV LV mean PG 2.1 mmHG BERNA ISCV LV V1 mean 64.8 cm/sec BERNA ISCV LV max PG 4.3 mmHg BERNA ISCV RVSP 39 mmHg BERNA ISCV RAP systole 8 mmHg BERNA ISCV LAV(MOD-4ch) 99 mL BERNA ISCV LAV(MOD-bp) Indexed 40 mL/m2 BERNA ISCV LAV(MOD-2ch) 95 mL BERNA ISCV LVOT diam 23 mm BERNA ISCV LVOT AREA 4.2 cm2 BERNA ISCV SV(LVOT) 108 mL BERNA ISCV GERBER(I,D) 1.3 cm2 BERNA ISCV GERBER(VTI)/BSA_ph l 0.5 cm2/m2 BERNA ISCV Anatomical Region Laterality Modality Echocardiography Narrative 04/21/2023 4:53 PM EDT ?Left??Ventricle: The left ventricular systolic function is normal. The LVEF is visually estimated at 55 - 60%. The diastolic function is normal. The left ventricular filling pressure is normal. ?Right??Ventricle: The right ventricle is moderately dilated. The right ventricular systolic function is normal. Right ventricular systolic pressure is mildly elevated (35-50mmHg). The estimated right ventricular systolic pressure is 39 mmHg. ?Aortic??Valve: There is moderate aortic stenosis. There is moderate (0.25-0.5) valvular aortic stenosis based upon the dimensionless index (LVOT / AV ratio). The peak gradient is 55 mmHg. The mean gradient is 28 mmHg. The estimated aortic valve area by the continuity equation is 1.3 cm2. ?Pericardium: No pericardial effusion. ?There is no recent study available for direct jiyh-rl-[id number] comparison. ?? Left Ventricle Based on the linear dimension and/or 2D volumes, the left ventricle is normal in size. There is normal left ventricular myocardial thickness and mass. The left ventricular systolic function is normal. The LVEF is visually estimated at 55 - 60%. The diastolic function is normal. The left ventricular filling pressure is normal. The left ventricular wall motion is normal. Right Ventricle The right ventricle is moderately dilated. The right ventricular systolic function is normal. Right ventricular systolic pressure is mildly elevated (35-50mmHg). The estimated right ventricular systolic pressure is 39 mmHg. Left Atrium The left atrial size is mildly increased with an indexed volume of 35-41 mL/m2. The interatrial septum is not well visualized. Right Atrium The right atrial size is normal. IVC/SVC The right atrial pressure could not be accurately assessed, and an assumed pressure of 8mmHg was used for calculations. Mitral Valve The mitral valve leaflets are normal in appearance with no evidence of mitral valve prolapse. There is trace mitral regurgitation. There is no mitral stenosis. Tricuspid Valve The tricuspid valve is normal in appearance. There is mild tricuspid regurgitation. There is no tricuspid stenosis. Aortic Valve The aortic valve appears to be trileaflet. The cusp(s) are thickened. The cusp(s) are calcified. There is no valvular regurgitation. There is moderate aortic stenosis. There is moderate (0.25-0.5) valvular aortic stenosis based upon the dimensionless index (LVOT / AV ratio). The peak gradient is 55 mmHg. The mean gradient is 28 mmHg. The estimated aortic valve area by the continuity equation is 1.3 cm2. Pulmonic Valve The pulmonic valve was not well visualized. There is trace pulmonic regurgitation. There is no pulmonic stenosis. Pericardium No pericardial effusion. Great Vessels The aortic root is normal in size. The sinus of Valsalva (aortic root) diameter is 32 mm by leading edge to leading edge method. The main pulmonary artery is not well visualized. Study Details A complete transthoracic echocardiogram using two-dimensional (2D), m-mode, color and spectral flow Doppler imaging was performed. This complete 2D, M-mode, and Doppler transthoracic echocardiogram was performed on site at [facility] ([place], [place]) and interpreted remotely by faculty at the [facility] ([place], [place]). During the study the apical, parasternal and subcostal view was captured. Overall the study quality was adequate. BP: 153/64 mmHg. Heart Rate: 64 bpm. Heart rate was normal. Height: 190.5 cm. Weight: 112.9 kg. BSA: 2.41 m2. The heart rhythm during this exam was most suggestive of a sinus rhythm. Study Recommendation There is no recent study available for direct [id number]-[id number] comparison. us Joseph Lake MD CV ECHO PROCEDURES Final R esult documented in this encounter Visit Diagnoses Diagnosis Murmur Undiagnosed cardiac murmurs SOB (shortness of breath) Shortness of breath A-fib (CMS/HCC) Atrial fibrillation documented in this encounter
--- OUTSIDE RECORDS SUMMARY | 2024-09-12 12:41 | XMS_ITS | Encounter Summary ---
Author Organization Healthcare Address [address] [place] [address] Care Team Providers Care Skip Hoist Operator Name Role Phone Unavailable Primary Care Provider Unavailabl e Encounter Details Date Type Department Care Team (Late st Contact Info) Description 03/23/2024 Orders Only External Location [address] [place] [phone] Joseph Lake MD [address] [address] Social History Tobacco Use Types Packs/Day Years [...] PM EDT Appointment Cardiac Imaging [address] [place] [phone] 05/18/2025 2:30 PM EDT Office Visit [facility] [place] [facility] [address] [facility]. [address] [place] [phone] Rahat Luna MD [address] [place] [address] documented as of this encounter [...]
--- OUTSIDE RECORDS SUMMARY | 2024-09-12 12:41 | XMS_ITS | Encounter Summary ---
Author Organization Healthcare Address [address] [place] [address] Care Team Providers Care Microarray Operations Vice President Name Role Phone Unavailable Primary Care Provider Unavailabl e Encounter Details Date Type Department Care Team (Late st Contact Info) Description 03/30/2024 Abstract [facility] [address] [address] Zoila Herndon [facility] [address] [place] [phone] Social History Tobacco Use Types Packs/Day Years [...] PM EDT Appointment Cardiac Imaging [address] [place] [address] 05/18/2025 2:30 PM EDT Office Visit [facility] [address] [address] Rahat Luna MD [address] [place] [address] documented as of this encounter Visit Diagnoses Not on filedocumented in this encounter
--- OUTSIDE RECORDS SUMMARY | 2024-09-12 12:41 | XMS_ITS | Clinical Summary ---
Author Organization [facility] Address [address] [place] [address] Care Team Providers Care Guidance Consultant Name Role Phone Dora Hernandez MD Primary Care Provider [phone] Allergies No known active allergies Medications ezetimibe (Zetia) 10 MG tablet Take 1 tablet (10 mg) by mouth 1 (one) time each day. Active gabapentin (Neurontin) 100 MG capsule Take 1 capsule (100 mg) by mouth. Take 2 tablets twice per day Active LORazepam (Ativan) 0.5 MG tablet Take 1 tablet (0.5 mg) by mouth every 6 (six) hours if needed for anxiety. Take 1 twice per day as needed Active metoprolol succinate XL (Toprol-XL) 50 MG 24 hr tablet Take 1 tablet (50 mg) by mouth 1 (one) time each day. Do not crush or chew. Take 0.5 tablet every day Active rivaroxaban (Xarelto) 2.5 MG tablet Take by mouth. Active valsartan-hydro CHLOROthiazide (Diovan-HCT) 320-25 MG tablet Take 1 tablet by mouth 1 (one) time each day. Active cyanocobalamin 50 MCG tablet Take 1 tablet (50 mcg) by mouth 1 (one) time each day. Active multivitamin-mi nerals-folic acid-coenzyme q10 (Preservision AREDS 2) capsule Take 1 capsule by mouth 1 (one) time each day. Active Active Problems Problem Noted Date Diagnosed Date Paroxysmal atrial fibrillation 03/30/2024 Edema 03/30/2024 Shortness of breath 03/30/2024 Aortic stenosis 03/30/2024 Family History Medical History Relation Name Comments No Known Problems Father Heart failure Mother Relation Name Status Comments Father Mother Social History Tobacco Use Types Packs/Day Years Used Date Smoking Tobacco: Never Assessed Sex and Gender Information Value Date Recorded Sex Assigned at Not on file Legal Sex Male 4:06 PM EDT Gender Identity Not on file Sexual Orientation Not on file Last Filed Vital Signs Vital Sign Reading Time Taken Comments Blood Pressure 165/64 05/19/2024 2:13 PM EDT Pulse 62 05/19/2024 2:13 PM EDT Temperature - - Respiratory Rate - - Oxygen Saturation 98% 05/19/2024 2:13 PM EDT Inhaled Oxygen Concentration - - Weight 113 kg (249 lb) 04/21/2023 4:10 PM EDT Height 190.5 cm (6' 3 ) 05/19/2024 2:13 PM EDT Body Mass Index 31.12 04/21/2023 4:10 PM EDT Plan of Treatment Upcoming Encounters Date Type Department Care Team (Late st Contact Info) Description 05/18/2025 1:00 PM EDT Appointment Cardiac Imaging [address] [place] [phone] 05/18/2025 2:30 PM EDT Office Visit [facility] [place] [facility] [address] [place] [phone] Rahat Luna MD [address] [place] [address] Health Maintenance Due Date Last Done Comments [facility]-Depression Screening 1942 [facility]-Infant/Child/Adol SDOH Screenings 1942 [facility]- SDOH Screenings 1960 [facility]-Adult SDOH Screenings 1960 [facility]-Zoster Vaccines (1 of 2) 1992 [facility]-DTaP,Tdap,and Td Vaccines (1 - Tdap) 07/18/2012 07/17/2012 [facility]-RSV Vaccine: 60+ Years or (1 - 1-dose 75+ series) 2017 [id number] Vaccine (4 - season) 2024 09/29/2021, 01/03/2021, 12/13/2020 [facility]-Influenza Vaccine (#1) 06/25/202407/27, 09/29/2022, 09/12/2021, Additional history exists [facility]-Medicare Annual Wellness (AWV) 10/07/2024 10/07/2023, 09/29/2022, 04/17/2021, Additional history exists [facility]-Pneumococcal Vaccine: 65+ Years Completed 06/19/2019, 2015 [facility]-Obesity Intervention Completed 05/19/2024 [facility]-HIB Vaccines Aged Out No longer e ligible based on patient's age to complete this topic [facility]-HPV Vaccines Aged Out No longer e ligible based on patient's age to complete this topic [facility]-Hepatitis A Vaccines Aged Out No longer eligible based on patient's age to complete this topic [facility]-IPV Vaccines Aged Out No longer e ligible based on patient's age to complete this topic [facility]-Rotavirus Vaccines Aged Out No lo nger eligible based on patient's age to complete this topic Insurance MEDICARE Care Teams Guidance Consultant Relationship Specialty Start Date End Date Dora Hernandez MD [address] [place] [address] PCP - General 05/19/24
--- OUTSIDE RECORDS SUMMARY | 2024-09-12 12:41 | XMS_ITS | Encounter Summary ---
Author Organization Healthcare Address [address] [place] [address] Care Team Providers Care Property Controller Name Role Phone Dora Hernandez MD Primary Care Provider [phone] Encounter Details Date Type Department Care Team (Latest Contact Info) Description 05/19/2024 Travel Social History Tobacco Use Types Packs/Day Years [...] PM EDT Appointment Cardiac Imaging [address] [place] [phone] 05/18/2025 2:30 PM EDT Office Visit [facility] [place] [address] [place] [phone] Rahat Luna MD [address] [place] [address] documented as of this encounter Visit Diagnoses Not on filedocumented in this encounter Additional Health Concerns Assessment Noted Time A Body Mass Index follow-up plan has been documented for the patient 05/19/2024 3:39 PM EDT documented as of this encounter Care Teams Property Controller Relationship Specialty Start Date End Date Dora Hernandez MD [address] [place] [address] [address] PCP - General 05/19/24 documented as of this encounter
--- OUTSIDE RECORDS SUMMARY | 2024-09-12 12:41 | XMS_ITS | Encounter Summary ---
Author Organization Healthcare Address [address] [place] [address] Care Team Providers Care Student Specialist Name Role Phone Unavailable Primary Care Provider Unavailabl e Encounter Details Date Type Department Care Team (Late st Contact Info) Description 03/23/2024 Orders Only External Location [address] [place] [phone] Joseph Lake MD [address] [address] Social History Tobacco Use Types Packs/Day Years [...] PM EDT Appointment Cardiac Imaging [address] [place] [phone] 05/18/2025 2:30 PM EDT Office Visit [facility] [place] [facility] [address] [facility] [place] [phone] Rahat Luna MD [address] [place] [address] documented as of this encounter [...]
--- OUTSIDE RECORDS SUMMARY | 2024-09-12 12:42 | XMS_ITS | Referral Summary ---
Author Organization [facility] Address [address] [place] [address] Phone Care Team Providers Care Electrical Appliance Mechanic Name Role Phone Dora Hernandez MD Primary Care Provider [phone] Encounters Date Type Department Care Team Description 06/14/2024 10:43 AM EDT - 06/14/2024 11:59 PM EDT Hospital Encounter [facility] Ultrasound [address] [place], [place] [id number] Dani Levine MD Retention of urine, unspecified; Flaccid neuropathic bladder, not elsewhere classified Discharge Disposition: Home or Self Care from Last 3 Months Allergies Active Allergy Reactions Criticality Noted Date Comments Rosuvastatin Other (See Comments) 09/15/2021 Leg weakness Medications PSYLLIUM HUSK, ASPARTAME, ORAL Take by mouth. Active diclofenac (VOLTAREN) 1 % Top GelIndications:Radha sissy osteoarthritis of both knees Apply 2 g topically 4 times daily. 300 g 2 3 Active XARELTO 20 mg Oral Tablet 3 Active ezetimibe (ZETIA) 10 mg Oral Tablet TAKE 1 TABLET BY MOUTH DAILY 90 Tablet 3 4 Active fluticasone propionate (FLONASE) 50 mcg/actuation Nasl [place], SuspensionIndicati ons:Seasonal allergic rhinitis, unspecified trigger USE 2 SPRAYS NASALLY EVERY DAY 48 g 3 4 Active valsartan-hydrochl orothiazide (DIOVAN-HCT) 320-25 mg Oral Tablet 1 Tablet. 4 Active metoprolol succinate ER (TOPROL-XL) 100 mg Oral Tablet Sustained Release 24 hrIndications:Esse ntial hypertension Take 0.5 Tablets by mouth daily. 4 Active LORazepam (ATIVAN) 0.5 mg Oral TabletIndications: Anxiety disorder, unspecified type Take 1 Tablet by mouth 2 times daily as needed for Anxiety. 30 Tablet 2 4 Active gabapentin (NEURONTIN) 100 mg Oral CapsuleIndications :Peripheral polyneuropathy Take 2 caps in AM and 3 caps PM. Total 5 caps a day. 150 Capsule 5 4 Active Active Problems Patient Care Coordination No te Formatting of this note migh t be different from the original. DESTINEE: 03/26/2023 CSTA-12/01/16 BENOZ-12/01/16 SOAPP-12/01/16 [facility] audit completed by Estella Wu on 07/02/2021. [facility] audit completed by Marisela Parker RN on 07/08/2021. Problem Noted Date Diagnosed Date Right renal mass 03/13/2024 Overview (03/13/2024): Seen on RUQ US done at [facility] 03/07/24. Pt is currently admitted. Will d/w pt at f/u appt. Heart murmur 03/31/2023 Enlarged prostate with urinary retention 023 Lumbar degenerative disc disease 02/25/2023 Bilateral hearing loss 04/13/2022 Statin intolerance 09/12/2021 BPH without urinary obstruction 09/12/2021 Seasonal allergic rhinitis 09/12/2021 Hyperlipidemia 04/17/2021 Peripheral polyneuropathy 2019 Situational anxiety 2019 Obesity, Class I, BMI 30-34.9 2019 Lipoma of back 06/19/2019 Mass of skin of right shoulder 06/19/2019 Primary osteoarthritis of both knees 06/19/2019 Former smoker 04/02/2016 Uses hearing aid 04/02/2016 Pulmonary nodule, right 2015 Essential hypertension 12/23/2015 Hyponatremia 12/22/2015 Recurrent acute otitis media of both ears 2015 Non morbid obesity due to excess calories 2015 Elevated blood sugar 12/22/2015 Resolved Problems Problem Noted Date Diagnosed Date Resolved Date Tobacco use 12/23/2015 04/02/2016 Dizziness 12/22/2015 04/02/2016 Immunizations Name Administration Dates Next Due Influenza High Dose 08/31/2019 Pfizer SARS-CoV-2 Vaccine 12 + Yrs (Purple Cap) 09/29/2021,01/03/2021,12/13/2020 Pneumococcal Conjugate Vacci ne 13 Valent 2015 Pneumococcal Polysaccharide 23 Valent 06/19/2019 Quadrivalent Influenza High Dose 023,09/29/2022,09/12/2021,08/13 Td, Unspecified Formulation 07/17/2012 Social History Tobacco Use Types Packs/Day Years Used Date Smoking Tobacco: Former Cigarettes 2 50 0 01/02/1966 - 01/03/2016 Pipe Smokeless Tobacco: Never Alcohol Use Standard Drinks/Week Comments Yes 0 (1 standard drink = 0.6 oz pur e alcohol) beer and wine PHQ-2 Answer Date Recorded PHQ-2 Total Score 0 10/07/2023 Sex and Gender Information Value Date Recorded Sex Assigned at Not on file Legal Sex Male 2:45 AM EDT Gender Identity Not on file Sexual Orientation Not on file Last Filed Vital Signs Vital Sign Reading Time Taken Comments Blood Pressure 110/78 04/05/2024 11:26 AM EDT Pulse 63 04/05/2024 11:26 AM EDT Temperature 36.4 ??C (97.6 ??F) 10/07/2023 9:51 AM ES T Respiratory Rate 16 02/11/2023 4:20 AM EDT Oxygen Saturation 97% 04/05/2024 11:26 AM EDT Inhaled Oxygen Concentration - - Weight 100.2 kg (221 lb) 04/05/2024 11:26 AM EDT Height 190.5 cm (6' 3 ) 04/05/2024 11:26 AM EDT Body Mass Index 27.62 04/05/2024 11:26 AM EDT Functional Status * Is the person deaf or does he/she have serious difficulty hearing? Answer Date of Assessment Author No 10/07/2023 9:52 AM EST [facility]yn Partida, [facility] * Is the person blind or does he/she have serious difficulty seeing even when wearing glasses? Answer Date of Assessment Author No 10/07/2023 9:52 AM CODY PartidaKevyn CCMA * Does this person have serious difficulty walking or climbing stairs? Answer Date of Assessment Author No 10/07/2023 9:52 AM CODY Partida Bagley VARGHESE Velasquez * Does this person have difficulty dressing or bathing? Answer Date of Assessment Author No 10/07/2023 9:52 AM CODY Partida Bagley VARGHESE Velasquez * Because of a physical, mental or emotional condition, does this person have difficulty doing errands alone such as visiting a doctor's office or shopping? Answer Date of Assessment Author No 10/07/2023 9:52 AM Kevyn Etienne VARGHESE Velasquez Mental Status * Because of a physical, mental or emotional condition, does this person have serious difficulty concentrating, remembering or making decisions? Answer Entry Date Author No 10/07/2023 9:52 AM Kevyn Etienne CCMA Plan of Treatment Not on file Goals Goal Patient Goal Type Associated Problems Recent Progress Patient-Stated? Author Blood Pressure < 140/90 Blood Pressure 110/78(2023 11:26 AM EDT) No Ember Canela, RN Maintain a healthy diet, exercise regularly and maintain an ideal body weight General No Kim Solis RMA Maintain a healthy diet, exercise regularly and maintain an ideal body weight General No Aurelia Saldana RMA Stay Tobacco Free Lifestyle No Kim Solis RMA Procedures Procedure Name Priority Date/Time Associated Diagnosis Comments US RENAL AND BLADDER Routine 06/14/2024 11:25 AM EDT Retention of urine, unspecified Flaccid neuropathic bladder, not elsewhere classified CT CHEST W CONTRAST Routine 12/30/2016 1 0:06 AM EST Pulmonary nodule, right from Last 3 Months or Most Recently Relevant to Health Maintenance Results * US RENAL AND BLADDER (06/14/2024 11:25 AM EDT) Anatomical Region Laterality Modality Abdomen, Pelvis Ultrasound 06/14/2024 11:2 5 AM EDT Impressions 06/14/2024 11:35 AM EDT No evidence of active obstructive uropathy or other acute finding. - Note: Radiology results need to be interpreted within a comprehensive clinical context. ??If you have questions about the radiology report, please contact the office of the ordering clinician. Narrative 06/14/2024 11:35 AM EDT US KIDNEYS AND BLADDER, ??06/14/2024 11:25 AM ?? 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 COMPARISON: ??None. PROCEDURE COMMENTS: Routine sonographic evaluation of the kidneys and bladder with client care representative images and process development technician notes sent to PACS for radiologist review. FINDINGS: ?? RIGHT: ??13.7 x 7.2 x 7.0 cm. ??No hydronephrosis, solid-appearing mass, or shadowing stone. LEFT: 11.7 x 6.0 x 5.8 cm. ?? No hydronephrosis, solid-appearing mass, or shadowing stone. PELVIS: ??No bladder mass identified. Bladder wall measures 5 mm. Patient did not catheterize to obtain post void. 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 COMPARISON: None. PROCEDURE COMMENTS: Routine sonographic evaluation of the kidneys andbladder with client care representative images and process development technician notes sent to PACS forradiologist review. FINDINGS: RIGHT: 13.7 x 7.2 x 7.0 cm. No hydronephrosis, solid-appearing mass,or shadowing stone. LEFT: 11.7 x 6.0 x 5.8 cm. No hydronephrosis, solid-appearing mass, or shadowing stone. PELVIS: No bladder mass identified. Bladder wall measures 5 mm. Patientdid not catheterize to obtain post void. IMPRESSION: No evidence of active obstructive uropathy or other acute finding. - Note: Radiology results need to be interpreted within a comprehensiveclinical context. If you have questions about the radiology report, please contactthe office of the ordering clinician. us Dani Levine MD [facility] ORDERABLES Final Resu lt * CT CHEST W CONTRAST (12/30/2016 10:06 AM EST) Anatomical Region Laterality Modality Chest Computed Tomogra phy 12/30/2016 10:0 6 AM EST Addenda Addendum by Favio Fisher MD on 12/30/2016 12:25 PM EST Addendum to chest CT from 12/30/2016: Moderate sized pericardial effusion is new from 07/20/2016 and measures 2.1 cm in greatest dimension. Phillip Code jojay next day Impressions 12/30/2016 11:12 AM EST Stable 5 mm right upper lobe pulmonary nodule and stable 8 mm right lower lobe pulmonary nodule. No new or enlarging nodules. No infiltrates or adenopathy. ??Fairly well circumscribed ovoid soft tissue density within the subcutaneous fat of the posterior right shoulder which is incompletely imaged on today's exam but is likely stable from most recent study from 07/20/2016. At that time, it measured 4 x 2 cm in greatest cross-sectional dimension. It has been present since 12/23/2015. MRI of the right shoulder with attention to the posterior soft tissues may be helpful for further evaluation and characterization. Favio Whipple follow-up Code jojay next Narrative 12/30/2016 11:[address] CHEST W CONTRAST 12/30/2016 History: Clinical: 76 years. Male . R91.1-Solitary pulmonary [id number]-SSK-98-CM. Smoking history. 75 mL of Isovue-370 administered intravenously. Automated dose reduction utilized.. Comparison: Prior chest CTs from 07/20/2016 and 12/23/2015. Correlation also made with whole body PET/CT from 01/16/2016.. Findings: There is an incompletely imaged soft tissue density in the subcutaneous fat in the posterior lateral right shoulder (scans 9 through 14). This has been present on prior studies though not described. It measured 4 x 2 cm on 07/20/2016 and is likely stable since that time. It had shown small focus of metabolic activity on whole body PET/CT from 01/16/2016. Included chest wall is otherwise unremarkable. Tracheobronchial tree is normal. There is a stable approximately 5 mm nodule in the anterolateral right upper lobe (image 18). There is a stable 8 mm subpleural nodule in the posterior lateral right lower lobe (image 38). There are calcified granulomas in the posterior segment right upper lobe (scans 19 through 21). There are no new or enlarging pulmonary nodules. There are no infiltrates. There are scattered small mediastinal calcifications from healed granulomatous disease. There are no enlarged noncalcified hilar or mediastinal nodes. There are no pleural collections. There is moderate pericardial effusion which is new and which measures approximately 2 cm in greatest thickness posteriorly ectasis image 46). There are increased densities within the coronary arteries, consistent with coronary calcifications and/or stents. Included upper abdomen is unremarkable. Bone windows demonstrate mild degenerative changes of the spine. Procedure Note Favio Fisher MD - 12/30/2016 CT CHEST W CONTRAST 12/30/2016 History: Clinical: 76 years. Male . R91.1-Solitary [id number]-GFH-83-CM. Smoking history. 75 mL of Isovue-370 administered intravenously. Automated dose reduction utilized.. Comparison: Prior chest CTs from 07/20/2016 and 12/23/2015. Correlation alsomade with whole body PET/CT from 01/16/2016.. Findings: There is an incompletely imaged soft tissue density in the subcutaneousfat in the posterior lateral right shoulder (scans 9 through 14). This has beenpresent on prior studies though not described. It measured 4 x 2 cm on 07/20/2016and is likely stable since that time. It had shown small focus of metabolicactivity on whole body PET/CT from 01/16/2016. Included chest wall is otherwiseunremarkable. Tracheobronchial tree is normal. There is a stable approximately 5 mm nodule in the anterolateral rightupper lobe (image 18). There is a stable 8 mm subpleural nodule in theposterior lateral right lower lobe (image 38). There are calcified granulomas inthe posterior segment right upper lobe (scans 19 through 21). There are no newor enlarging pulmonary nodules. There are no infiltrates. There are scattered small mediastinal calcifications from healedgranulomatous disease. There are no enlarged noncalcified hilar or mediastinal nodes. There are no pleural collections. There is moderate pericardial effusion which is new and which measures approximately 2 cm in greatest thickness posteriorly ectasis image 46). There are increased densities within the coronary arteries, consistentwith coronary calcifications and/or stents. Included upper abdomen is unremarkable. Bone windows demonstrate mild degenerative changes of the spine. IMPRESSION: Stable 5 mm right upper lobe pulmonary nodule and stable 8 mm right lower lobe pulmonary nodule. No new or enlarging nodules. No infiltratesor adenopathy. Fairly well circumscribed ovoid soft tissue density withinthe subcutaneous fat of the posterior right shoulder which is incompletelyimaged on today's exam but is likely stable from most recent study from 07/20/2016.At that time, it measured 4 x 2 cm in greatest cross-sectional dimension. It hasbeen present since 12/23/2015. MRI of the right shoulder with attention to the posterior soft tissues may be helpful for further evaluation and characterization. Favio Fisher Code follow-up Code jot next Dain Burris MD IMG CT ORDERABLES Edited Result - Final from Last 3 Months or Most Recently Relevant to Health Maintenance Insurance [employer] HMO MR [employer] HMO MR Advance Directives For more information, please contact: [phone] * Full Code (Latest Code Status on File) Date Activated Date Inactivated Comments 12/22/2015 11:25 PM 12/23/2015 8:15 PM Care Teams Electrical Appliance Mechanic Relationship Specialty Start Date End Date Dora Hernandez MD [address] [place] [address] PCP - General Family Medicine 12/24/15
--- OUTSIDE RECORDS SUMMARY | 2024-09-12 12:42 | XMS_ITS | Encounter Summary ---
Author Organization [place] [address] Care Team Providers Care Transitional Care Nurse Name Role Phone Dora Hernandez MD Primary Care Provider [phone] Reason for Visit * Reason Comments Medication Refill Encounter Details Date Type Department Care Team (Late st Contact Info) Description 11/16/2023 Refill [facility] [address] [place] [address] Dora Hernandez MD [address] [place] [address] Medication Refill Social History Tobacco Use Types Packs/Day Years [...] on file documented as of this encounter Functional Status * Is the person deaf or does he/she have serious difficulty hearing? Answer Date of Assessment Author No 10/07/2023 9:52 AM Kevyn Etienne CCMA * Is the person blind or does he/she have serious difficulty seeing even when wearing glasses? Answer Date of Assessment Author No 10/07/2023 9:52 AM Kevyn Etienne CCMA * Does this person have serious difficulty walking or climbing stairs? Answer Date of Assessment Author No 10/07/2023 9:52 AM Kevyn Etienne michaelsondraVARGHESE Longoria * Does this person have difficulty dressing or bathing? Answer Date of Assessment Author No 10/07/2023 9:52 AM Kevyn Etienne VARGHESE Velasquez * Because of a physical, mental or emotional condition, does this person have difficulty doing errands alone such as visiting a doctor's office or shopping? Answer Date of Assessment Author No 10/07/2023 9:52 AM Kevyn Etienne michaelsondraVARGHESE [place] documented as of this encounter Mental Status * Because of a physical, mental or emotional condition, does this person have serious difficulty concentrating, remembering or making decisions? Answer Entry Date Author No 10/07/2023 9:52 AM CODY Partida Bagley VARGHESE Velasquez documented in this encounter Ordered Prescriptions Prescription Sig Dispense Quantity Refills Last Filled Start Date End Date amLODIPine (NORVASC) 10 mg Oral TabletIndications: Essential hypertension TAKE 1 TABLET EVERY DAY 90 Tablet 3 11/17/2023 04/05/2024 documented in this encounter Miscellaneous Notes * Telephone Encounter - Lynnette Koch CPhT - 11/17/2023 7:35 AM EST Amlodipine - Medication refill request deferred to office staff. Jesse Reason: The prescription from Dr. Dora Hernandez was a class No Print. Unsure how to proceed. documented in this encounter Plan of Treatment Not on file documented as of this encounter Goals Goal Patient Goal Type Associated Problems Recent Progress Patient-Stated? Author Blood Pressure < 140/90 Blood Pressure 110/78(2023 11:26 AM EDT) No Ember Canela, ASHLEY Maintain a healthy diet, exercise regularly and maintain an ideal body weight General No Kim Solis RMA Maintain a healthy diet, exercise regularly and maintain an ideal body weight General No Aurelia Saldana RMA Stay Tobacco Free Lifestyle No Kim Solis RMA documented as of this encounter Visit Diagnoses Diagnosis Essential hypertension Unspecified essential hypertension documented in this encounter Discontinued Medications Medication Sig Discontinue Reason Start Date End Da te amLODIPine (NORVASC) 10 mg Oral TabletIndications:Alejandra al hypertension Take 1 Tablet by mouth daily. 10/07/2023 11/17/2023 documented as of this encounter Additional Health Concerns Assessment Noted Time A fall risk assessment has been complete d for the patient 10/07/2023 9:52 AM EST documented as of this encounter Care Teams Transitional Care Nurse Relationship Specialty Start Date End Date Dora Hernandez MD [address] [place] [address] PCP - General Family Medicine 12/24/15 documented as of this encounter
--- OUTSIDE RECORDS SUMMARY | 2024-09-12 12:42 | XMS_ITS | Continuity of Care Document ---
Author Organization [facility] Address [address] [place] [address] Phone Care Team Providers Care Central Station Operator Name Role Phone Dora Hernandez MD Primary Care Provider [phone] Encounters Date Type Department Care Team Description 06/14/2024 10:43 AM EDT - 06/14/2024 11:59 PM EDT Hospital Encounter [facility] Ultrasound [address] [place] [address] Dani Levine MD Retention of urine, unspecified; Flaccid neuropathic bladder, not elsewhere classified Discharge Disposition: Home or Self Care 04/18/2024 Telephone ANA Lisa [facility] [place] [address] Dora Hernandez MD Medication Management ( Disp Refills Start End /gabapentin (NEURONTIN) 100 mg Oral Capsule 120 Capsule 1 02/29/2024 - /Sig - Route: Take 2 Capsules by mouth 2 times daily. - Oral /Sent to pharmacy as: gabapentin 100 mg capsule (NEURONTIN) /E-Prescribing Status: Receipt confirmed by pharmacy (); Other (Rx for 2 tabs in the AM and 3 tabs in PM) 04/05/2024 11:20 AM EDT Office Visit ANA Lisa [facility] [place] [address] Dora Hernandez MD Peripheral polyneuropathy (Primary Dx); Essential hypertension; Encounter for long-term current use of medication; Leg skin lesion, left; Lumbar degenerative disc disease; Anxiety disorder, unspecified type 04/04/2024 Patient Outreach [facility] [address] [place] [address] Dora Hernandez MD Central Patient Navigator Outreach (AWV Questionnaire /) 03/22/2024 Refill SEP [place] [facility]66 [facility] [place], [place] [address] Dora Hernandez MD Medication Refill 03/14/2024 Telephone [facility] [place] [address] [place] [address] Clemente Villalobos MD Follow-up 03/09/2024 Telephone [facility] [address] [place] [address] Clemente Villalobos MD Follow-up 02/28/2024 Refill SEP [place] Lisa [address] [place] [address] Dora Hernandez MD Medication Refill 02/02/2024 Orders Only ANA Lisa [facility]66 [facility] [place] [address] Dora Hernandez MD 01/12/2024 Refill SEP [place] Lisa [address] [place] [address] Dora Hernandez MD Medication Refill 11/29/2023 Refill SEP [place] Lisa [facility]66 [facility] [place] [address] Dora Hernandez MD Medication Refill 11/16/2023 Refill SEP [place] Lisa [facility]66 [facility] [place] [address] Dora Hernandez MD Medication Refill 10/13/2023 9:00 AM EST Clinical Support ANA Lisa [facility]66 [facility] [place] [address] Jennifer Garcia, A Type 2 diabetes mellitus without complication, without long-term current use of insulin ([facility]) 10/11/2023 Telephone SEP [place] Lisa [address] [place] [address] Dora Hernandez MD Appointment Needed (bw) 10/07/2023 10:00 AM EST [facility] [place] [address] Dora Hernandez MD Medicare annual wellness visit, subsequent (Primary Dx); Cellulitis of leg, left; Peripheral polyneuropathy; Anxiety disorder, unspecified type; Type 2 diabetes mellitus without complication, without long-term current use of insulin (HCC); Atrial fibrillation, unspecified type (HCC); Pulmonary nodule, right; Lumbar degenerative disc disease; Essential hypertension 10/06/2023 Patient Outreach [facility] [address] [place] [address] Dora Hernandez MD Central Patient Navigator Outreach (AWV Questionnaire ) 08/30/2023 Refill [facility] [place] Lisa [address] [address] Dora Hernandez MD Medication Refill 08/26/2023 12:03 PM EDT - 08/26/2023 11:59 PM EDT Hospital Encounter [facility] [address] 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 07/27/2023 3:50 PM EDT Immunization SEP [place] [address] [place] [address] Jennifer Garcia RMA Immunization/Injectio n 07/27/[address] [place] [address] Dora Hernandez MD Medication Refill (losartan (COZAAR) 50 mg Oral Tablet) 07/20/2023 Refill ANA [facility] Angy Lisa [facility] [place] [address] Dora Hernandez MD Medication Refill 05/26/2023 [facility]ill [facility] [place] [address] Dora Hernandez MD Medication Refill 05/19/2023 [facility]ill [facility] [address] [place] [address] Dora Hernandez MD Medication Refill 05/03/2023 11:30 AM EDT Clinical Support [facility] [address] [place] [address] Jennifer Garcia Malcolm Encounter for long-term (current) use of medications 03/31/2023 10:00 AM EDT Office [facility] [address] [place] [address] Dora Hernandez MD Lumbar degenerative disc disease (Primary Dx); Encounter for long-term (current) use of medications; Peripheral polyneuropathy; Essential hypertension; Pulmonary nodule, right; Obesity, Class I, BMI 30-34.9; Heart murmur; Enlarged prostate with urinary retention; Bilateral hearing loss, unspecified hearing loss type; Primary osteoarthritis of both knees; Situational anxiety 03/26/2023 Refill [facility] [place] [address] Dora Hernandez MD Medication Refill 02/25/2023 1:00 PM EDT Office Visit ANA [facility] Angy Lisa [facility] [place] [address] Dora Hernandez MD Enlarged prostate with urinary retention (Primary Dx); Urinary tract infection associated with indwelling urethral catheter, subsequent encounter; Peripheral polyneuropathy; Lumbar degenerative disc disease; Bradycardia; Anxiety disorder, unspecified type; Essential hypertension; Wears hearing aid in both ears 02/23/2023 Refill SEP [place] [address] [place] [address] Dora Hernandez MD Medication Refill 02/17/2023 Refill SEP [place] [address] [place] [address] Dora Hernandez MD Medication Refill 02/15/2023 Refill SEP [place] Lisa [facility] [place] [address] Dora Hernandez MD Medication Refill 02/11/2023 4:06 AM EDT - 02/11/2023 5:50 AM EDT Emergency [place] [facility] [address] [place] [address] Chung Santiago MD Problem with Riggs catheter, initial encounter (HCC) (Primary Dx); Acute cystitis with hematuria Discharge Disposition: Home or Self Care 01/18/2023 Telephone SEP [place] Lisa [facility] [place] [address] Dora Hernandez MD Results 01/08/2023 Travel 01/08/2023 9:34 AM EDT - 01/08/2023 11:59 PM EDT Hospital Encounter [facility] [address] [place] [address] Dora Hernandez MD Peripheral polyneuropathy; Leg weakness, bilateral Discharge Disposition: Home or Self Care 01/04/2023 Refill SEP [place] Lisa [facility] [place] [address] Dora Hernandez MD Medication Refill 12/30/2022 10:52 AM EST - 12/30/2022 11:59 PM EST Hospital Encounter [facility] [address] [place] [address] Dani Levine MD Retention of urine, unspecified; Frequency of micturition; Gross hematuria Discharge Disposition: Home or Self Care 12/16/2022 Refill SEP [place] [address] [place] [address] Dora Hernandez MD Medication Refill 12/16/2022 10:40 AM EST Office Visit [place] [address] Dora Hernandez MD IFG (impaired fasting glucose) (Primary Dx); Peripheral polyneuropathy; BPH without urinary obstruction; Essential hypertension; Leg weakness, bilateral; Nodule of right lung; Anxiety disorder, unspecified type; Uses hearing aid 12/14/2022 Telephone SEP [place] [facility] Angy Lisa [facility] [place] [address] Dora Hernandez MD Follow-up 12/03/2022 Travel 12/03/2022 10:50 AM EST - 12/03/2022 11:59 PM EST Hospital Encounter [facility] [address] [facility] [place] [address] Urinary frequency (Primary Dx); Retention of urine, unspecified; Enlarged prostate with urinary obstruction; Gross hematuria Discharge Disposition: Home or Self Care 11/17/2022 Refill SEP [place] Lisa [facility]66 [address] [facility] [place] [address] Petra Partida, [facility] Medication Refill 11/11/2022 Refill SEP [place] Lisa [facility]66 [address] [facility] [place] [address] Dora Hernandez MD Medication Refill 11/06/2022 Telephone [facility] [place] [facility] [place] [address] Dora Hernandez MD Results 11/05/2022 11:10 AM EST Office Visit [facility] [place] [address] Dora Hernandez MD Gross hematuria (Primary Dx); BPH without urinary obstruction; Essential hypertension 10/31/2022 9:30 AM EST Office Visit [address] [address] Michael Hernandez APRN Urine frequency (Primary Dx); Urinary tract infection with hematuria, site unspecified 10/06/2022 Refill SEP [place] [address] Dora Hernandez MD Medication Refill 09/29/2022 10:10 AM EST Office Visit A[place] [address] Dora Hernandez MD Medicare annual wellness visit, subsequent (Primary Dx); Flu vaccine need; Hearing loss, unspecified hearing loss type, unspecified laterality; Pulmonary nodule, right; Anxiety disorder, unspecified type; Obesity, Class I, BMI 30-34.9; Peripheral polyneuropathy; Encounter for long-term current use of medication; Essential hypertension; BPH without urinary obstruction; Wears hearing aid in both ears 08/28/2022 Refill SEP [place] [address] Dora Hernandez MD Medication Refill 08/10/2022 Refill SEP [place] [facility] [place], [place] [address] Dora Hernandez MD Medication Refill (gabapentin (NEURONTIN) 100 mg Oral Capsule 120 Capsule 4 05/06/2022 /Sig - Route: Take 2 Capsules by mouth 2 times daily. - Oral /Class: Print //) 08/07/2022 Refill ANA [place] [address] Dora Hernandez MD Medication Refill 07/09/2022 Refill SEP [place] [address] Dora Hernandez MD Medication Refill 06/08/2022 Refill SEP [place] [address] Dora Hernandez MD Medication Refill 05/07/2022 [place] [address] Dora Hernandez MD Medication Refill 04/23/2022 Telephone [facility] [place] [facility] [place] [address] Dora Hernandez MD Other (FYI) 04/14/2022 Travel 04/14/2022 1:00 PM EDT - 04/14/2022 11:59 PM EDT Hospital Encounter [address] [place] [address] Dora Hernandez MD Gross hematuria; Right flank pain Discharge Disposition: Home or Self Care 04/13/2022 11:20 AM EDT Office Visit [facility] [place] [address] Dora Hernandez MD Gross hematuria (Primary Dx); BPH without urinary obstruction; Essential hypertension; Peripheral polyneuropathy; Anxiety disorder, unspecified type; Bilateral hearing loss, unspecified hearing loss type; Right flank pain 04/12/2022 Nurse Triage [address] [facility] [address] [facility] [address] Victoria Singh RN 04/10/2022 Patient Outreach [facility] [address] [place] [address] [facility] [address] [place] [address] Dora Hernandez MD Central Patient Navigator Outreach (AWV Questionnaire) 04/09/2022 Refill SEP [place] [address] [place] [address] Dora Hernandez MD Medication Refill 04/06/2022 Refill SEP [place] [address] [place] [address] Dora Hernandez MD Medication Refill 04/03/2022 Refill SEP [place] Lisa [address] [place] [address] Dora Hernandez MD Medication Refill 03/09/2022 Refill SEP [place] Lisa [address] [place] [address] Dora Hernandez MD Medication Refill 02/26/2022 Refill SEP [place] Lisa [address] [place] [address] Dora Hernandez MD Medication Refill 02/24/2022 Refill SEP [place] Lisa [address] [place] [address] Dora Hernandez MD Medication Refill 02/16/2022 Refill SEP [place] [address] [place] [address] Dora Hernandez MD Medication Refill 02/03/2022 Refill ANA Lisa [address] [place] [address] Dora Hernandez MD Medication Refill 12/30/2021 Refill ANA Lisa [address] [place] [address] Dora Hernandez MD Medication Refill 12/11/2021 Refill ANA Lisa [address] [place] [address] Dora Hernandez MD Medication Refill 09/29/2021 Travel 09/29/2021 1:30 PM EST Clinical Support ANA Lisa [address] [place] [address] Jennifer Garcia RMA Need for COVID-19 vaccine (Primary Dx) 09/24/2021 Refill ANA Lisa [address] [place] [address] Dora Hernandez MD Medication Refill 09/16/2021 Telephone [facility] [place] [address] Dora Hernandez MD Results (lab ); Other (returning call ) 09/15/2021 Orders Only [facility]NA [facility] [place] [address] Dora Hernandez MD 09/12/2021 Travel 09/12/2021 11:00 AM EST Office Visit ANA Lisa [address] [place] [address] Dora Hernandez MD Essential hypertension (Primary Dx); Anxiety disorder, unspecified type; Peripheral polyneuropathy; Hyperlipidemia, unspecified hyperlipidemia type; BPH without urinary obstruction; Flu vaccine need; Pulmonary nodule, right; Obesity, Class I, BMI 30-34.9; Statin intolerance; Seasonal allergic rhinitis, unspecified trigger 09/05/2021 Telephone SEP [place] [facility] [place] [address] Dora Hernandez MD Immunizations (needs new card) 09/03/2021 Refill ANA Lisa [address] [place] [address] Dora Hernandez MD Medication Refill 09/01/2021 Refill SEP [place] [address] [place] [place] [address] Dora Hernandez MD Medication Refill 07/17/2021 Refill SEP [place] [facility] [place] [address] Dora Hernandez MD Medication Refill 07/07/2021 Refill ANA Lisa [facility]66 Lisa [facility] [place] [address] Dora Hernandez MD Medication Refill 06/04/2021 Refill SEP [place] [facility] [place] [address] Dora Hernandez MD Medication Refill 06/04/2021 Orders Only ANA Lisa [address] [place] [address] Jennifer Garcia RMA Essential hypertension 06/03/2021 Telephone SEP [place] [facility] [place] [address] Dora Hernandez MD Other (request a call from Jennifer) 05/23/2021 Refill SEP [place] [address] [facility] [place] [address] Dora Hernandez MD Medication Refill 05/07/2021 Refill SEP [place] [facility]RI[facility] [address] [facility] [place] [address] Dora Hernandez MD Medication Refill 04/19/2021 Refill SEP [place] [facility] [address] [facility] [place] [address] Dora Hernandez MD Medication Refill 04/17/2021 Travel 04/17/2021 3:10 PM EDT Office Visit ANA [facility] Angy Lisa [facility] [place] [address] Dora Hernandez MD Medicare annual wellness visit, subsequent (Primary Dx); Peripheral polyneuropathy; Essential hypertension; Pulmonary nodule, right; Uses hearing aid; Hyperlipidemia, unspecified hyperlipidemia type; Anxiety disorder, unspecified type 04/10/2021 Refill SEP [place] [facility]66 [address] [facility] [place] [address] Dora Hernandez MD Medication Refill (gabapentin (NEURONTIN) 100 mg Oral [id number] Cap03/07/2021) 03/07/2021 Refill SEP [place] [facility] [place] [address] Dora Hernandez MD Medication Refill 02/20/2021 Refill SEP [place] [facility]66 [address] [facility] [place] [address] Dora Hernandez MD Medication Refill (metoprolol ) 02/05/2021 Refill SEP [place] [facility]66 [address] [facility] [place] [address] Dora Hernandez MD Medication Refill 01/22/2021 Refill SEP [place] [facility]66 Lisa [facility] [place] [address] oDra Hernandez MD Medication Refill 01/03/2021 1:30 PM EST Immunization COVID Vaccine Location [address] [place] [address], [place] [address] Immunization/Injectio n 12/20/2020 Refill SEP [place] [address] [facility] [place] [address] Dora Hernandez MD Medication Refill 12/13/2020 12:15 PM EST Immunization COVID Vaccine Location [address] [place] [address], [place] [address] Immunization/Injectio n 12/06/2020 Refill SEP [place] [facility]66 [facility] [place] [address] Kim He MD Medication Refill 12/04/2020 Refill SEP [place] Lisa [address] [place] [address] [place] [address] Dora Hernandez MD Medication Refill 11/06/2020 Refill ANA Lisa [facility]66 [facility] [place] [address] Dora Hernandez MD Medication Refill (amLODIPine (NORVASC) 10 mg Oral Tablet); Medication Refill 11/06/2020 Telephone ANA Lisa [facility]66 [facility] [place] [address] Dora Hernandez MD Results (Lab Results) 11/05/2020 Travel 11/05/2020 10:15 AM EST Clinical Support ANA Lisa [facility]66 [facility] [place] [address] Jennifer Garcia, RMA Essential hypertension; Hypercholesteremia 09/26/2020 Refill ANA Lisa [facility]66 [facility] [place] [address] Dora Hernandez MD Medication Refill 09/07/2020 Orders Only ANA Lisa [facility]66 [facility] [place] [address] Kim He MD Peripheral polyneuropathy 09/07/2020 Refill SEP [place] [address] [facility] [place] [address] Dora Hernandez MD Medication Refill 08/19/2020 Refill SEP [place] [facility]66 [facility] [place] [address] Dora Hernandez MD Medication Refill 08/13/2020 Patient Outreach SEP [place] [facility] [address] [place] [address] Maribel West, [facility] Medication Management (Comprehensive Medication Review) 08/13/2020 Travel 08/13/2020 2:40 PM EDT Office Visit [facility]NA [facility] [place] [address] Dora Hernandez MD Medicare annual wellness visit, subsequent (Primary Dx); Essential hypertension; Hypercholesteremia; Flu vaccine need; Anxiety disorder, unspecified type; Nodule of right lung; Uses hearing aid; Obesity, Class I, BMI 30-34.9 08/08/2020 Patient Outreach [facility] [address] [place] [address] Dora Hernandez MD Central Patient Navigator Outreach (awv questionnaire) 07/26/2020 Travel 07/24/2020 Travel 07/18/2020 Refill SEP [place] [facility] [place] [address] Dora Hernandez MD Medication Refill 05/09/2020 Refill SEP [place] [facility] [place] [address] Dora Hernandez MD Medication Refill 05/09/2020 Telephone SEP [place] [facility] Lisa [facility] [place] [address] Dora Hernandez MD Medication Management 03/27/2020 Travel 03/18/2020 Refill SEP [place] [facility] [place] [address] Dora Hernandez MD Medication Refill 03/02/2020 Refill SEP [place] [facility] [place] [address] Dora Hernandez MD Medication Refill 01/24/2020 Telephone ANA Lisa [facility] [address] [place] [address] Dora Hernandez MD Symptom Call (patient's was told to call if patient had clots when he urinated, which is happening today 01/24/20) 01/23/2020 10:40 AM EDT Office Visit ANA [place] [address] [address] [facility] [address] [place] [address] Dora Hernandez MD Gross hematuria (Primary Dx); BPH without urinary obstruction 01/23/2020 Travel 01/23/2020 Telephone ANA Lisa [address] [place] [address] Dora Hernandez MD Symptom Call 01/16/2020 Telephone ANA Lisa [address] [place] [address] Dora Hernandez MD Medication Refill (rosuvastatin) 12/27/2019 Refill SEP [place] [facility] [place] [address] Dora Hernandez MD Medication Refill 2019 9:20 AM EST Office Visit ANA Lisa [facility] [place] [address] Dora Hernandez MD Peripheral polyneuropathy (Primary Dx); Essential hypertension; Pulmonary nodule, right; Obesity, Class I, BMI 30-34.9; Other specified anxiety disorders; IFG (impaired fasting glucose); Dyslipidemia 12/20/2019 Travel 12/13/2019 Refill [facility] [place] [facility] [place] [address] Dora Hernandez MD Medication Refill 10/27/2019 Refill SE[facility] [place] [facility] [address] [place] [address] Dora Hernandez MD Medication Refill 10/11/2019 Refill SEP [place] [address] [facility] [place] [address] Dora Hernandez MD Medication Refill 10/10/2019 Refill SEP [place] Lisa [address] Lisa [facility] [place] [address] Dora Hernandez MD Medication Refill 10/03/2019 1:39 PM EST - 10/03/2019 11:59 PM EST Hospital Encounter [facility] [address] [facility] [place] [address] Encounter for long-term current use of medication Discharge Disposition: Home or Self Care 10/03/2019 8:20 AM EST Office Visit ANA Lisa [facility] [place], [place] [address] Dora Hernandez MD BPH without urinary obstruction (Primary Dx); Obesity, Class I, BMI 30-34.9; Peripheral polyneuropathy; Hypercholesteremia; Encounter for long-term current use of medication; Anxiety disorder, unspecified type; Essential hypertension 09/28/2019 [facility] [place], [place] [address] Dora Hernandez MD Medication Refill 09/25/2019 Refill [facility] [place] [facility] [place] [address] Dora Hernandez MD Medication Refill 09/07/2019 Telephone ANA Lisa [place] Lisa [facility] [place] [address] Dora Hernandez MD Visit Follow Up (retruned phone call) 09/06/2019 Telephone ANA Lisa Fawn Lisa [facility] [place], [place] [address] Dora Hernandez MD Results (blwk 08/31/19) 08/31/2019 Telephone ANA Lisa [place] Lisa [facility] [place] [address] Dora Hernandez MD Labs Only 08/31/2019 10:30 AM EST Office [place] [facility] [place] Lisa [address] [address] Dora Hernandez MD Medicare annual wellness visit, subsequent (Primary Dx); Flu vaccine need; Essential hypertension; Pulmonary nodule, right; Encounter for long-term current use of medication; Impacted cerumen of right ear; BPH without urinary obstruction; Uses hearing aid 08/29/2019 Patient Outreach [facility] [address] [place] [address] Dora Hernandez MD Central Patient Navigator Outreach 08/25/2019 Refill SEP [place] [address] [address] Dora Hernandez MD Medication Refill 07/28/[address] [address] Dora Hernandez MD Medication Refill 07/27/2019 9:30 AM EDT Office Visit [facility] Gen Surg [address] [address] Modesto Caputo MD Lipoma of back (Primary Dx) 07/13/2019 9:00 AM EDT Office Visit [facility] Podiatry [place] [address] [facility] [address] [place] [address] Cristhian Latif DPM Pain in toes of both feet (Primary Dx); Contusion of toenail, unspecified laterality, initial encounter; Paronychia of great toe of right foot 06/19/2019 11:00 AM EDT Office Visit [address] [address] Dora Hernandez MD Paronychia of great toe of right foot (Primary Dx); Essential hypertension; Pulmonary nodule, right; Mass of skin of right shoulder; Lipoma of back; Need for pneumococcal vaccination; Situational anxiety; Anxiety disorder, unspecified type; Primary osteoarthritis of both knees 06/15/2019 Telephone SEP [place] [address] [facility] [place] [address] Dora Hernandez MD Appointment Needed (physical/infected toe) 05/03/2019 Refill SEP [place] [address] [facility] [place] [address] Dora Hernandez MD Medication Refill 05/03/2019 Refill SEP [place] [facility] [place] [address] Dora Hernandez MD Medication Refill 03/29/2019 Refill SEP [place] [facility] [place] [address] Dora Hernandez MD Medication Refill 02/08/2019 Refill SEP [place] [facility] [place] [address] Dora Hernandez MD Medication Refill 02/08/2019 Orders Only SEP [place] [facility] [place] [address] [facility] Stout [facility] Essential hypertension 02/01/2019 Refill SEP [place] [facility] [place] [address] Dora Hernandez MD Medication Refill 12/05/2018 Refill SEP [place] [facility] [place] [address] Dora Hernandez MD Medication Refill 11/30/2018 Refill SEP [place] [facility] [place] [address] Dora Hernandez MD Medication Refill 10/04/2018 Refill SEP [place] [facility] [place] [address] Dora Hernandez MD Medication Refill 09/21/2018 Refill SEP [place] [facility] [place] [address] Dora Hernandez MD Medication Refill 07/19/2018 Refill SEP [place] [address] [place] [address] Dora Hernandez MD Medication Refill 06/08/2018 Refill SEP [place] [address] [place] [address] Dora Hernandez MD Medication Refill 06/06/2018 Refill SEP [place] [address] [place] [address] Dora Hernandez MD Medication Refill 05/30/2018 Refill SEP [place] [facility] [place] [address] Dora Hernandez MD Medication Refill 05/26/2018 Refill SEP [place] [facility] [facility] [place] [address] Dora Hernandez MD Medication Refill 05/06/2018 Orders Only SEP [place] [address] [facility] [place] [address] Ree Stout [facility] Essential hypertension 05/05/2018 Refill SEP [place] [facility] [facility] [place] [address] Dora Hernandez MD Medication Refill 05/03/2018 Refill SEP [place] [facility] [facility] [place] [address] Dora Hernandez MD Medication Refill 04/05/2018 Telephone SEP [place] [address] [place] [address] Dora Hernandez MD Other (needs [employer] Medicare AWV) 12/15/2017 Telephone SEP [place] [address] [place] [address] Dora Hernandez MD Medication Refill 10/28/2017 Refill SEP [place] [facility] [place] [address] Dora Hernandez MD Medication Refill 10/01/2017 Refill SEP [place] [facility] [address] [place], [place] [address] Dora Hernandez MD Medication Refill 07/26/2017 1:00 PM EDT Office Visit SEP [place] [facility]66 [facility] [place], [place] [address] Dora Hernandez MD Herpes zoster without complication (Primary Dx); Anxiety disorder, unspecified type; Acute bacterial conjunctivitis of both eyes 07/19/2017 Refill [place]P [place] [address] [place], [place] [address] Dora Hernandez MD Medication Refill 05/06/2017 Orders Only SEP [place] Lisa [address] [place], [place] [address] Dora Hernandez MD Mass of joint of right shoulder (Primary Dx) 04/21/2017 Telephone SEP [place] Lisa [address] [place], [place] [phone] Dora Hernandez MD Medication Management 03/29/2017 Refill [place]P [place] [address] [place] [address] Dora Hernandez MD Medication Refill 01/26/2017 Refill SEP [place] [address] [place] [phone] Dora Hernandez MD Medication Refill 01/06/2017 2:30 PM EDT Office Visit [facility] Pulmonology [facility] [address] [facility] [address] [place] [address] Dain Burris MD Pulmonary nodule, right (Primary Dx); Hyponatremia; Former smoker; Shoulder mass 01/01/2017 Refill SEP [place] [facility] [address] [place] [address] Dora Hernandez MD Medication Refill 12/30/2016 9:24 AM EST - 12/30/2016 11:59 PM [facility] Hospital Encounter [facility] [address] [place] [address] Dora Hernandez MD Screening for AAA (abdominal aortic aneurysm) Discharge Disposition: Home or Self Care 12/30/2016 9:24 AM EST - 12/30/2016 11:59 PM [facility] Hospital Encounter [place] [address] [place] [address] Dain Burris MD Pulmonary nodule, right Discharge Disposition: Home or Self Care 12/16/2016 Telephone SEP [place] [facility] [place] [address] Dora Hernandez MD Medication Refill 12/16/2016 Telephone SEP [place] [address] [place] [address] Dora Hernandez MD Results 12/15/2016 Telephone [facility] [place] [facility] [place] [address] Dora Hernandez MD Other 12/05/2016 Refill SEP [place] [address] [facility] [place] [address] Dora Hernandez MD Medication Refill 12/01/2016 10:17 PM EST - 12/01/2016 11:59 PM [facility] Hospital Encounter [facility] ARIS PROCESSING [facility] [place] [address] Anxiety disorder, unspecified type; Encounter for long-term current use of medication Discharge Disposition: Home or Self Care 12/01/2016 Patient Outreach [facility] [place] [facility] [facility] [place] [address] Ember Canela RN Care Management - Chart Review (HCA) 12/01/2016 9:00 AM EST Office Visit [facility] [place] [address] [place] [address] Dora Hernandez MD Bilateral lower extremity edema (Primary Dx); Pulmonary nodule, right; Essential hypertension; Anxiety disorder, unspecified type; Former smoker; Screening for AAA (abdominal aortic aneurysm); Encounter for long-term current use of medication; Change in bowel movement 10/27/2016 Refill SEP [place] [address] [place] [address] Dora Hernandez MD Medication Refill 10/01/2016 Refill SEP [place] [address] [place] [address] Dora Hernandez MD Medication Refill 10/01/2016 Telephone [place] [address] [place] [address] Dora Hernandez MD Medication Refill 08/08/2016 Refill [place] [address] [place] [address] Dora Hernandez MD Medication Refill 07/22/2016 2:15 PM EDT Office Visit [facility] Pulmonology [address] [place] [address] Dain Burris MD Pulmonary nodule, right (Primary Dx); Former smoker; Essential hypertension; Hyponatremia; Non morbid obesity due to excess calories 07/20/2016 12:01 PM EDT - 07/20/2016 11:59 PM EDT Hospital Encounter [facility] [place] [address] Dain Burris MD Pulmonary nodule, right Discharge Disposition: Home or Self Care 07/16/2016 Refill SEP [place] [address] [place] [phone] Dora Hernandez MD Medication Refill 07/09/2016 9:45 AM EDT Office Visit [facility] [place] [address] [place] [address] Gigi Baez MD Acute otitis externa of right ear, unspecified type (Primary Dx) 07/01/2016 Telephone SEP [place] [address] [place] [phone] Dora Hernandez MD Medication Refill 06/22/2016 Refill SEP [place] [address] [place] [phone] Dora Hernandez MD Medication Refill 06/22/2016 Refill SEP [place] Lisa [address] [place] [address] Dora Hernandez MD Medication Refill 05/21/2016 Telephone [facility] [address] [facility] [address] [place] [phone] Young Hobson MD Other 05/14/2016 Orders Only [facility] [address] [address] Young Hobson MD 04/24/2016 8:50 AM EDT Office Visit [facility] [address] [phone] Young Hobson MD Constipation, chronic (Primary Dx) 04/02/2016 Telephone SEP [place] [facility] [address] [place] [address] Dora Hernandez MD Medication Problem 04/02/2016 2:40 PM EDT Office Visit ANA Lisa [facility] [place] [address] Dora Hernandez MD Essential hypertension (Primary Dx); Peripheral edema; Constipation, chronic; Former smoker; Uses hearing aid 03/30/2016 Telephone SEP [place] Lisa [facility] [place] [phone] oDra Hernandez MD Medication Problem 03/18/2016 2:15 PM EDT Office Visit [facility] [place] [address] [place] [address] Joselyn Barron MD Bilateral sensorineural hearing loss (Primary Dx); Tinnitus, bilateral 03/16/2016 Telephone [facility] [address] [phone] Young Hobson MD Constipation; Appointment Needed 01/20/2016 2:00 PM EDT Office Visit [facility] [place] [address] [place] [phone] Joselyn Barron MD Abnormal auditory perception, bilateral (Primary Dx); Other infective chronic otitis externa of left ear; Bilateral sensorineural hearing loss; Tinnitus, bilateral; Eustachian tube dysfunction, bilateral 01/17/2016 12:15 PM EDT Office Visit [facility] Pulmon[facility] [address] [facility] [address] [place] [address] Dain Burris MD Pulmonary nodule, right (Primary Dx); Hyponatremia; Recurrent acute serous otitis media of both ears; Non morbid obesity due to excess calories; Tobacco use 01/16/2016 11:16 AM EDT - 01/16/2016 11:18 AM EDT Hospital Encounter [facility]G PET [facility] [place] [address] Dain Burris MD Lung nodules Discharge Disposition: Home or Self Care 01/16/2016 11:19 AM EDT - 01/16/2016 11:59 PM EDT Hospital Encounter [facility]G PET CT [facility] [place] [address] Discharge Disposition: Home or Self Care 01/14/2016 10:23 AM EDT - 01/14/2016 11:59 PM EDT Hospital Encounter [facility] P[facility] [place] [address] Dain Burris MD Lung nodule Discharge Disposition: Home or Self Care 01/14/2016 9:50 AM EDT - 01/14/2016 10:22 AM EDT Hospital Encounter [facility] [place] [address] Dora Hernandez MD Thyroid lesion Discharge Disposition: Home or Self Care 01/13/2016 Telephone SEP [place] [address] [facility] [place] [facility] [address] Dora Hernandez MD Anxiety 12/31/2015 Telephone SEP [place] [address] [facility] [place] [address] Dora Hernandez MD Medication Problem 12/31/2015 Telephone SEP [place] [address] [facility] [address] [place] [phone] Dora Hernandez MD Thank You Card 12/27/2015 Orders Only [facility] Pulmonology [facility] [address] [address] Dain Burris MD Lung nodule (Primary Dx) 12/27/2015 Orders Only SEP Pulmonology [address] [phone] Dain Burris MD Lung nodules (Primary Dx) 2015 3:11 PM EST - 2015 11:59 PM EST Hospital Encounter [facility] LAB ARIS PROCESSING [facility] [place] [address] Hyponatremia Discharge Disposition: Home or Self Care 2015 10:00 AM EST Office Visit SEP [place] [address] [facility] [place] [address] Dora Hernandez MD Essential hypertension (Primary Dx); Screening for colon cancer; Hyponatremia; Tobacco use; Thyroid lesion; ASHD (arteriosclerotic heart disease); Need for pneumococcal vaccination; Non morbid obesity due to excess calories; Cough due to STEPHANIE inhibitor; IFG (impaired fasting glucose); Other recurrent acute nonsuppurative otitis media of both ears; Dizziness; Pulmonary nodule, right 12/22/2015 6:46 PM EST - 12/23/2015 4:00 PM EST Emergency [facility] [address] [facility] [address] [place] [address] [place] [address] Jose J Mayen MD Dillon, Sean Russell, MD Recurrent acute otitis media of both ears, unspecified otitis media type (Primary Dx); Dizziness; Hyponatremia Discharge Disposition: Home or Self Care 12/22/2015 - 12/22/2015 6:12 PM EST Emergency [place] [facility] [address] [place] [address] [place] [address] Discharge Disposition: ED Dismiss - Never Arrived 12/22/2015 6:13 PM EST - 12/22/2015 6:26 PM EST Emergency [place] [facility] [address] [place], [place] [address] [address] Discharge Disposition: Left Without Being Seen 07/29/2015 10:30 AM EDT Office Visit [facility] [address] [place] [address] Ludwin Posada, Otitis media with rupture of tympanic membrane, bilateral (Primary Dx); Hearing loss, bilateral; Tinnitus, bilateral 11/12/2014 11:00 AM EST - 11/12/2014 11:59 PM EST Hospital Encounter [facility] [address] [place] [phone] Unspecified essential hypertension (Primary Dx); Other and unspecified hyperlipidemia Discharge Disposition: Home or Self Care 11/12/2014 10:45 AM EST - 11/12/2014 10:59 AM EST Hospital Encounter [facility] [address] [place] [address] Wheezing Discharge Disposition: Home or Self Care 07/17/2012 2:55 PM EDT - 07/17/2012 4:34 PM EDT [facility] [place] [facility] [address] [place] [address] Tylor Mtz MD Laceration Discharge Disposition: Home or Self Care 12/18/2004 12:01 AM EST - 12/18/2004 11:59 PM EST Hospital Encounter [facility] Joseph Lake MD Allergies Active Allergy Reactions Criticality Noted Date [...] Active fluticasone propionate (FLONASE) 50 mcg/actuation Nasl Lincoln, SuspensionIndicati ons:Seasonal allergic rhinitis, unspecified trigger USE [...] the original. DESTINEE: 03/26/2023 [facility]-12/01/16 [facility]-12/01/16 [facility]-12/01/16 [facility] audit completed by Estella Wu on 07/02/2021. [facility] audit completed by Marisela Parker RN on 07/08/2021. Problem Noted Date Diagnosed Date Right renal mass 03/13/2024 Overview (03/13/2024): Seen on RUQ US done at [facility] 03/07/24. Pt is currently admitted. Will [...] High Dose 023,09/29/2022,09/12/2021,08/13 Td, Unspecified Formulation 07/17/2012 Family History Medical History Relation Name Comments No Known Problems Father No Known Problems Maternal Grandfather No Known Problems Maternal Grandmother Heart Attack Mother No Known Problems Paternal Grandfather No Known Problems Paternal Grandmother No Known Problems Sister Allergies Neg Hx Bleeding Prob Neg Hx Cancer Neg Hx Colon Cancer Neg Hx Esophageal Cancer Neg Hx Hearing Loss Neg Hx Heart Disease Neg Hx Liver Cancer Neg Hx Liver Disease Neg Hx Migraines Neg Hx Rectal Cancer Neg Hx Stomach Cancer Neg Hx Thyroid Disease Neg Hx Relation Name Status Comments Father Maternal Grandfather Maternal Grandmother Mother Paternal Grandfather Paternal Grandmother Sister Alive Social History Smoking Status as of 09/12/2024 Tobacco Use Types Packs/Day Years Used Date Smoking Tobacco: Never Assessed PHQ-2 Answer Date Recorded PHQ-2 Total Score [...] Mass Index 27.62 04/05/2024 11:26 AM EDT Plan of Treatment Not on file Procedures Procedure Name Priority Date/Time Associated Diagnosis Comments US RENAL AND BLADDER Routine 06/14/2024 11:25 AM EDT Retention of urine, unspecified Flaccid neuropathic bladder, not elsewhere classified SCANNED LABS 03/23/2024 5:37 AM EDT CHOLESTEROL TOTAL Routine 01/11/2024 3:1 6 PM EDT CBC Routine 10/13/2023 8:47 AM EST Type 2 diabetes mellitus without complication, without long-term current use of insulin (HCC) LIPID PANEL REFLEX Routine 10/13/2023 8: 47 AM EST Type 2 diabetes mellitus without complication, without long-term current use of insulin (HCC) COMPREHENSIVE METABOLIC PANEL Routine 10/13/2023 8:47 AM EST Type 2 diabetes mellitus without complication, without long-term current use of insulin (HCC) XR TIBIA FIBULA LEFT AP AND LATERAL Routine 08/26/2023 12:32 PM EDT History of falling Pain of left lower extremity COMPLIANCE GABAPENTIN/PREGABALIN, URINE Routine 05/03/2023 11:53 AM EDT Encounter for long-term (current) use of medications COMPLIANCE BENZODIAZEPINE PANEL QUANT ONLY, URINE Routine 05/03/2023 11:53 AM EDT Encounter for long-term (current) use of medications URINALYSIS REFLEX STAT 02/11/2023 4:2 4 AM EDT UA W/REFLEX TO CULTURE STAT 4:24 AM EDT URINE CULTURE (NO STAIN) STAT 02/11/2023 4:24 AM EDT EXTRA BRASHER URINE CX STAT 02/11/2023 4 :24 AM EDT MRI LUMBAR SPINE WO CONTRAST Routine 01/08/2023 10:36 AM EDT Peripheral polyneuropathy Leg weakness, bilateral US RENAL AND BLADDER Routine 12/30/2022 11:26 AM EST Retention of urine, unspecified Frequency of micturition Gross hematuria HEMOGLOBIN A1C Routine 12/16/2022 11:15 AM EST IFG (impaired fasting glucose) VITAMIN B12 LEVEL Routine 12/16/2022 11: 15 AM EST Peripheral polyneuropathy Leg weakness, bilateral BLOOD UREA NITROGEN Callback 12/03/2022 1 0:52 AM EST Urinary frequency Retention of urine, unspecified Enlarged prostate with urinary obstruction Gross hematuria CREATININE Callback 12/03/2022 10:52 AM EST Urinary frequency Retention of urine, unspecified Enlarged prostate with urinary obstruction Gross hematuria URINE CULTURE (NO STAIN) Routine 11/05/2022 12:44 PM EST Gross hematuria COMPREHENSIVE METABOLIC PANEL Routine 11/05/2022 11:35 AM EST Essential hypertension CBC Routine 11/05/2022 11:35 AM EST Gross hematuria Essential hypertension SEP URINALYSIS POC Routine 11/05/2022 11 :08 AM EST Gross hematuria URINE CULTURE (NO STAIN) Routine 10/31/2022 9:45 AM EST Urine frequency SEP URINALYSIS POC Routine 10/31/2022 9: 42 AM EST Urine frequency COMPLIANCE GABAPENTIN/PREGABALIN, URINE Routine 09/29/2022 10:56 AM EST Encounter for long-term current use of medication COMPLIANCE BENZODIAZEPINE PANEL QUANT ONLY, URINE Routine 09/29/2022 10:56 AM EST Encounter for long-term current use of medication CT ABDOMEN PELVIS WO ORAL OR IV CONTRAST GRACE 04/14/2022 1:19 PM EDT Gross hematuria Right flank pain URINE CULTURE (NO STAIN) Routine 04/13/2022 3:20 PM EDT Gross hematuria CBC Routine 04/13/2022 12:11 PM EDT Essential hypertension COMPREHENSIVE METABOLIC PANEL Routine 04/13/2022 12:11 PM EDT Essential hypertension POCT URINALYSIS AUTOMATED Routine 04/13/2022 11:53 AM EDT Gross hematuria SEP URINALYSIS POC Routine 04/13/2022 11 :50 AM EDT Gross hematuria Right flank pain LIPID PANEL REFLEX Routine 09/12/2021 11 :58 AM EST Hyperlipidemia, unspecified hyperlipidemia type COMPREHENSIVE METABOLIC PANEL Routine 09/12/2021 11:58 AM EST Essential hypertension CREATINE KINASE Routine 04/17/2021 3:39 PM EDT Hyperlipidemia, unspecified hyperlipidemia type COMPREHENSIVE METABOLIC PANEL Routine 04/17/2021 3:39 PM EDT Hyperlipidemia, unspecified hyperlipidemia type LIPID PANEL REFLEX Routine 11/05/2020 10 :24 AM EST Essential hypertension Hypercholesteremia COMPREHENSIVE METABOLIC PANEL Routine 11/05/2020 10:24 AM EST Essential hypertension Hypercholesteremia CBC Routine 11/05/2020 10:24 AM EST Essential hypertension HB-1 CUSTOM UDS PANEL-QUEST Routine 10/03/2019 1:40 PM EST Encounter for long-term current use of medication CBC Routine 08/31/2019 11:23 AM EST Essential hypertension LIPID PANEL REFLEX Routine 08/31/2019 11 :23 AM EST Essential hypertension COMPREHENSIVE METABOLIC PANEL Routine 08/31/2019 11:23 AM EST Essential hypertension SD US AAA SCREENING EXAM MEDICARE Routine 12/30/2016 10:18 AM EST Screening for AAA (abdominal aortic aneurysm) CT CHEST W CONTRAST Routine 12/30/2016 1 0:06 AM EST Pulmonary nodule, right CREATININE ISTAT Routine 12/30/2016 9:39 AM EST HB-1 CUSTOM UDS PANEL-QUEST Routine 12/01/2016 10:17 PM EST Anxiety disorder, unspecified type Encounter for long-term current use of medication CT CHEST W CONTRAST Routine 07/20/2016 1 2:40 PM EDT Pulmonary nodule, right CREATININE ISTAT Routine 07/20/2016 12:3 2 PM EDT GMED COLONOSCOPY Routine 05/14/2016 2:[address] SKULL BASE TO MID THIGH Routine 01/16/2016 1:25 PM EDT Lung nodules GLUCOSE METER POC Routine 01/16/2016 11: 35 AM EDT PULMONARY FUNCTION TEST Routine 01/14/2016 10:32 AM EDT Lung nodule US THYROID Routine 01/14/2016 10:24 AM EDT Thyroid lesion BASIC METABOLIC PANEL Routine 2015 10:51 AM EST Hyponatremia SCANNED RHYTHM STRIPS 12/25/2015 9:[address] CHEST W CONTRAST GRACE 12/23/2015 3 :33 PM EST URINALYSIS Routine 12/23/2015 8:10 AM EST OSMOLALITY URINE Routine 12/23/2015 8:10 AM EST SODIUM LEVEL URINE Routine 12/23/2015 8: 10 AM EST OSMOLALITY STAT 12/23/2015 5:30 AM EST LIPID SCREEN Routine 12/23/2015 5:30 AM EST HEMOGLOBIN A1C Routine 12/23/2015 5:30 AM EST PROSTATE SPECIFIC ANTIGEN (TUMOR MARKER) Routine 12/23/2015 5:30 AM EST T4, FREE (THYROXINE) Routine 12/23/2015 5:30 AM EST THYROID STIMULATING HORMONE Routine 12/23/2015 5:30 AM EST PHOSPHORUS LEVEL Routine 12/23/2015 5:30 AM EST MAGNESIUM LEVEL Routine 12/23/2015 5:30 AM EST BASIC METABOLIC PANEL Routine 12/23/2015 5:30 AM EST TROPONIN-T Timed 12/23/2015 1:02 AM EST TROPONIN-T STAT 12/22/2015 10:[address] HEAD WO CONTRAST STAT 12/22/2015 8 :12 PM EST XR CHEST PA AND LATERAL GRACE 12/22/2015 8:11 PM EST DIFFERENTIAL STAT 12/22/2015 7:00 PM EST TROPONIN-T STAT 12/22/2015 7:00 PM EST BASIC METABOLIC PANEL STAT 12/22/2015 7:00 PM EST CBC WITH DIFF STAT 12/22/2015 7:00 PM EST EK EKG 12 LEAD STAT 12/22/2015 6:49 PM EST T4, FREE (THYROXINE) Routine 11/12/2014 11:16 AM EST Unspecified essential hypertension Other and unspecified hyperlipidemia THYROID STIMULATING HORMONE Routine 11/12/2014 11:16 AM EST Unspecified essential hypertension Other and unspecified hyperlipidemia COMPREHENSIVE METABOLIC PANEL Routine 11/12/2014 11:16 AM EST Unspecified essential hypertension Other and unspecified hyperlipidemia LIPID SCREEN Routine 11/12/2014 11:16 AM EST Unspecified essential hypertension Other and unspecified hyperlipidemia PROSTATE SPECIFIC ANTIGEN (SCREENING) Routine 11/12/2014 11:16 AM EST Unspecified essential hypertension Other and unspecified hyperlipidemia HEMOGLOBIN A1C Routine 11/12/2014 11:16 AM EST Unspecified essential hypertension Other and unspecified hyperlipidemia CBC Routine 11/12/2014 11:16 AM EST Unspecified essential hypertension Other and unspecified hyperlipidemia XR CHEST PA AND LATERAL Routine 11/12/2014 11:04 AM EST Wheezing [place] [employer] DECORATOR Routine 12/18/2004 11:20 AM EST Results * US RENAL AND BLADDER (06/14/2024 11:25 AM EDT) Only the most recent of2 resultswithin the time period is included. Anatomical Region Laterality Modality Abdomen, Pelvis Ultrasound [...] AM ?? 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 COMPARISON: ??None. PROCEDURE COMMENTS: Routine sonographic evaluation of the kidneys and bladder with residential sales representative images and mercerizing range feeder notes sent to PACS for radiologist review. 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 COMPARISON: None. PROCEDURE COMMENTS: Routine sonographic evaluation of the kidneys andbladder with residential sales representative images and mercerizing range feeder notes sent to PACS forradiologist review. FINDINGS: [...] the ordering clinician. us Dani Levine MD IMG US ORDERABLES Final Resu lt * SCANNED LABS (03/23/2024 5:37 AM EDT) 03/23/2024 5:37 AM EDT us Unknown Provider HEMATOLOGY ORDERABLES Final Res ult * CHOLESTEROL TOTAL (01/11/2024 3:16 PM EDT) Blood VENOUS BLOOD / Unknown us Dora Hernandez MD CHEMISTRY ORDERABLES Final Resu lt Performing Organization Address [facility] Co de Phone Number SEP OFFICE * LIPID PANEL REFLEX (10/13/2023 8:47 AM EST) Only the most recent of4 resultswithin the time period is included. Cholesterol 146 <200 mg/dL 10/13/2023 3:34 PM EST [facility] Comment: < 200 ?Desirable 200 - 239 ? Borderline High >= 240 ?High Triglyceride 48 <150 mg/dL 10/13/2023 3:34 PM EST [facility] Comment: < 150 ? Normal 150 - 199 ?Borderline High 200 - 499 ?High ??>= 500 ? Very High HDL 56 >=40 mg/dL 10/13/2023 3:34 PM EST [facility] Comment: ??> 60 ?Optimal 40 - 60 ?Acceptable ?? < 40 ?Low LDL Calculated 79 <100 mg/dL 10/13/2023 3:34 PM EST [facility] Non-HDL-C Calculated 90 <=129 mg/dL 10/13/2023 3:34 PM EST [facility] Comment: <130 ?Desirable 130-159 Above Desirable 160-189 Borderline High 190-219 High >= 220 ??Very High Fasting Specimen? Yes None 023 3:34 PM EST [facility] Blood VENOUS BLOOD / Unknown Venipuncture / Unknown 10/13/2023 8:47 AM EST 10/13/2023 8:47 AM EST us Dora Hernandez MD CHEMISTRY ORDERABLES Final Resu lt [facility] [address] [place] [address] , [place] [address] [facility] [address] [place] [id number] * (ABNORMAL) CBC (10/13/2023 8:47 AM EST) Only the most recent of6 resultswithin the time period is included. WBC 5.9 3.7 - 10.3 x10(3)/mcL 10/13/2023 3:20 PM EST [facility] RBC 3.86(L) 4.60 - 6.10 x10(6)/mcL 10/13/2023 3:20 PM EST [facility] Hgb 11.8(L) 13.7 - 17.5 g/dL 10/13/2023 3:20 PM EST [facility] Hct 38.1(L) 40.0 - 51.0 % 10/13/2023 3:20 PM EST [facility] MCV 98.7 80.0 - 100.0 fL 10/13/2023 3:20 PM EST [facility] MCH 30.6 26.0 - 34.0 pg 10/13/2023 3:20 PM EST [facility] MCHC 31.0 30.7 - 35.5 g/dL 10/13/2023 3:20 PM EST [facility] RDW 15.7(H) <=14.9 % 10/13/2023 3:20 PM EST [facility] Platelet 220 155 - 369 x10(3)/mcL 10/13/2023 3:20 PM EST [facility] MPV 11.4 8.8 - 12.5 fL 10/13/2023 3:20 PM EST [facility] Blood VENOUS BLOOD / Unknown Venipuncture / Unknown 10/13/2023 8:47 AM EST 10/13/2023 8:47 AM EST us Dora Hernandez MD HEMATOLOGY ORDERABLES Final Res ult [facility] [address] [facility] , [place] [address] * (ABNORMAL) COMPREHENSIVE METABOLIC PANEL (10/13/2023 8:47 AM EST) Only the most recent of8 resultswithin the time period is included. Sodium 141 136 - 145 mmol/L 10/13/2023 3:34 PM EST [facility] Potassium 4.4 3.5 - 5.0 mmol/L 10/13/2023 3:34 PM EST [facility] Chloride 109(H) 98 - 107 mmol/L 10/13/2023 3:34 PM EST [facility] Total CO2 23 22 - 29 mmol/L 10/13/2023 3:34 PM EST [facility] Anion Gap 9 7 - 16 mmol/L 10/13/2023 3:34 PM EST [facility] Calcium 9.0 8.8 - 10.4 mg/dL 10/13/2023 3:34 PM EST [facility] Glucose Lvl 106(H) 82 - 100 mg/dL 10/13/2023 3:34 PM EST [facility] BUN 27(H) 8 - 23 mg/dL 10/13/2023 3:34 PM EST [facility] Creatinine 1.33(H) 0.67 - 1.30 mg/dL 10/13/2023 3:34 PM EST [facility] Albumin 4.3 3.2 - 4.6 gm/dL 10/13/2023 3:34 PM EST [facility] Total Protein 7.4 6.4 - 8.3 gm/dL 10/13/2023 3:34 PM EST [facility] Bili Total 1.0 0.2 - 1.4 mg/dL 10/13/2023 3:34 PM EST [facility] ALT 20 <=41 U/L 10/13/2023 3:34 PM EST [facility] AST 19 <=40 U/L 10/13/2023 3:34 PM EST [facility] Alk Phos 157(H) 40 - 129 U/L 10/13/2023 3:34 PM EST [facility] eGFR (CKD-EPIcr 2020) 54(L) >=60 mL/min/1.7 3 m2 10/13/2023 3:34 PM EST [facility] Comment:Estimated GFR was ca lculated using the CKD-EPIcr (2020) equation refit without race. The equation is recommended by the National Kid[employer] - [employer]ph[employer] Task Force. Blood VENOUS BLOOD / Unknown Venipuncture / Unknown 10/13/2023 8:47 AM EST 10/13/2023 8:47 AM EST us Dora Hernandez MD CHEMISTRY ORDERABLES Final Resu lt [facility] [address] [facility], [place] [address] [facility] [address] [place], [place] [id number] * XR TIBIA FIBULA LEFT AP AND LATERAL (08/26/2023 12:32 PM EDT) Anatomical Region Laterality Modality Leg Radiographic Kim ging 08/26/2023 12:3 2 PM EDT Impressions 08/26/2023 12:43 PM EDT No acute bony abnormality of the tibia or fibula. This examination does not constitute a diagnostic evaluation of the knee or ankle. If the patient has symptoms localizing to those areas then supplemental dedicated imaging suggested. - Note: Radiology results need to be interpreted within a comprehensive clinical context. ??If you have questions about the radiology report, please contact the office of the ordering clinician. Narrative 08/26/2023 12:43 PM EDT XR TIBIA FIBULA LEFT AP AND LATERAL, ??08/26/2023 12:32 PM CLINICAL HISTORY: ??Z91.81-History of [id number]-[id number]-85-CM M79.605-Pain in left fpk-AZF-30-CM COMPARISON: ??None. PROCEDURE COMMENTS: Orthogonal views of the tibia and fibula. Minimum of two images. FINDINGS: No evidence of fracture or traumatic malalignment. No osteolysis or evidence of periostitis. No concerning localized cortical thickening. No soft tissue gas or foreign body. Mild degenerative change medial compartment of the knee joint. Prominent arterial vascular calcifications. Procedure Note Jaden Mayen MD - 08/26/2023 XR TIBIA FIBULA LEFT AP AND LATERAL, 08/26/2023 12:32 PM CLINICAL HISTORY: Z91.81-History of [id number]-JBR-58-CM M79.605-Pain in left upa-IAX-09-CM COMPARISON: None. PROCEDURE COMMENTS: Orthogonal views of the tibia and fibula. Minimum oftwo images. FINDINGS: No evidence of fracture or traumatic malalignment. No osteolysisor evidence of periostitis. No concerning localized cortical thickening. Nosoft tissue gas or foreign body. Mild degenerative change medial compartment ofthe knee joint. Prominent arterial vascular calcifications. IMPRESSION: No acute bony abnormality of the tibia or fibula. This examination does not constitute a diagnostic evaluation of the kneeor ankle. If the patient has symptoms localizing to those areas thensupplemental dedicated imaging suggested. - Note: Radiology results need to be interpreted within a comprehensiveclinical context. If you have questions about the radiology report, please contactthe office of the ordering clinician. Dora Hernandez MD IMG DIAGNOSTIC IMAGING ORDERABL ES Final Result * COMPLIANCE BENZODIAZEPINE PANEL QUANT ONLY, URINE (05/03/2023 11:53 AM EDT) Only the most recent of2 resultswithin the time period is included. Medications Expected Ativan(T M) (lorazep am) 05/04/2023 9:45 AM EDT [facility] Alprazolam <8 Cutoff 8 ng/mL ng/mL 05/04/2023 9:45 AM EDT [facility] Comment:e.g, Xanax, Niravam alpha-Hydroxyalprazolam <25 Cutoff 2 5 ng/mL ng/mL 05/04/2023 9:45 AM EDT [facility] Comment:Metabolite of Alpraz olam Clonazepam <10 Cutoff 10 ng/mL ng/mL 05/04/2023 9:45 AM EDT [facility] Comment:e.g., Klonopin, Clon opin 7-Aminoclonazepam <25 Cutoff 25 ng/mL ng/mL 05/04/2023 9:45 AM EDT [facility] Comment:Metabolite of Clonaz epam Diazepam <10 Cutoff 10 ng/mL ng/mL 05/04/2023 9:45 AM EDT [facility] Comment:e.g, Valium, Diastat Nordiazepam <25 Cutoff 25 ng/mL ng/mL 05/04/2023 9:45 AM EDT [facility] Comment:Metabolite of Chlord iazepoxide(Librium), Clorazepate(Tranxene), Diazepam, Halazepam, (Alapryl), Prazepam(Centrax) Flunitrazepam <50 Cutoff 50 ng/mL ng/mL 05/04/2023 9:45 AM EDT [facility] Comment:e.g.,Rohypnol, Narco zep 7-Aminoflunitrazepam <50 Cutoff 50 ng/mL ng/mL 05/04/2023 9:45 AM EDT [facility] Comment:Metabolite of Flunit razepam Flurazepam <50 Cutoff 50 ng/mL ng/mL 05/04/2023 9:45 AM EDT [facility] Comment:e.g., Dalmane Hydroxyethylflurazepam <50 Cutoff 50 ng/mL ng/mL 05/04/2023 9:45 AM EDT [facility] Comment:Metabolite of Fluraz epam Lorazepam <50 Cutoff 50 ng/mL ng/mL 05/04/2023 9:45 AM EDT [facility] Comment:e.g., Ativan Lorazepam Glucuronide <50 Cutoff 50 ng/mL ng/mL 05/04/2023 9:45 AM EDT [facility] Comment:Metabolite of Loraze juan Midazolam <50 Cutoff 50 ng/mL ng/mL 05/04/2023 9:45 AM EDT [facility] Comment:e.g., Versed alpha-hydroxymidazolam <50 Cutoff 50 ng/mL ng/mL 05/04/2023 9:45 AM EDT [facility] Comment:Metabolite of Versed Oxazepam <50 Cutoff 50 ng/mL ng/mL 05/04/2023 9:45 AM EDT [facility] Comment:e.g., Serax; also Me tabolite of Temazepam, and Nordiazepam Oxazepam Glucuronide <50 Cutoff 50 ng/mL ng/mL 05/04/2023 9:45 AM EDT [facility] Comment:Metabolite of Oxazep am Temazepam <50 Cutoff 50 ng/mL ng/mL 05/04/2023 9:45 AM EDT [facility] Comment:e.g., Restoril; also Metabolite of Diazepam Temazepam Glucuronide <50 Cutoff 50 ng/mL ng/mL 05/04/2023 9:45 AM EDT [facility] Comment:Metabolite of Temaze juan and Diazepam Triazolam <50 Cutoff 50 ng/mL ng/mL 05/04/2023 9:45 AM EDT [facility] Comment:e.g., Halcion alpha-hydroxytriazolam <50 Cutoff 50 ng/mL ng/mL 05/04/2023 9:45 AM EDT [facility] Comment:Metabolite of Triazo chavez Urine Creatinine 29.5 mg/dL 05/04/20 9:45 AM EDT [facility] Comment: Greater than 20: Consistent with valid sample Greater than 2 but less than 20: Possible dilution Less than 2: Questionable valid sample Urine URINE SPECIMEN COLLECTION / Unknown 05/03/2023 11:53 AM EDT 05/03/2023 11:53 AM EDT Narrative [facility] - 05/04/2023 9:45 AM EDT The absence of expected drug(s), and/or drug metabolite(s), may indicate non-compliance, diluted or adulterated urine, poor drug absorption, concentration of drug below the cut-off, timing of specimen collection relative to administration of drug, or limitations of testing. If results do not fit clinical expectations, please reach out to the Toxicology department at [phone]. Specimens are held for 7 days. This test was developed, and its performance characteristics determined by [facility] ([facility]). ??It has not been cleared or approved by the FDA. This test is used for clinical purposes. It should not be regarded as investigational or for research. [facility] is certified under the Clinical Laboratory Improvement Amendments (CLIA) as qualified to perform high complexity clinical laboratory testing. Dora Hernandez MD URINE ORDERABLES Final Result [facility] [address] , [place] [address] * (ABNORMAL) COMPLIANCE GABAPENTIN/PREGABALIN, URINE (05/03/2023 11:53 AM EDT) Only the most recent of2 resultswithin the time period is included. Gabapentin >2,000(H) Cutoff 50 ng/mL ng/mL 05/04/2023 9:45 AM EDT [facility] Comment:e.g, Neurontin Pregabalin <50 Cutoff 50 ng/mL ng/mL 05/04/2023 9:45 AM EDT [facility] Comment:Lyrica Urine Creatinine 29.5 mg/dL 05/04/20 9:45 AM EDT [facility] Comment: Greater than 20: Consistent with valid sample Greater than 2 but less than 20: Possible dilution Less than 2: Questionable valid sample Greater than 20: Consistent with valid sample Greater than 2 but less than 20: Possible dilution Less than 2: Questionable valid sample Urine URINE SPECIMEN COLLECTION / Unknown 05/03/2023 11:53 AM EDT 05/03/2023 11:53 AM EDT Narrative [facility] - 05/04/2023 9:45 AM EDT The absence of expected drug(s), and/or drug metabolite(s), may indicate non-compliance, diluted or adulterated urine, poor drug absorption, concentration of drug below the cut-off, timing of specimen collection relative to administration of drug, or limitations of testing. If results do not fit clinical expectations, please reach out to the Toxicology department at [phone]. Specimens are held for 7 days. This test was developed, and its performance characteristics determined by [facility] ([facility]). ??It has not been cleared or approved by the FDA. This test is used for clinical purposes. It should not be regarded as investigational or for research. [facility] is certified under the Clinical Laboratory Improvement Amendments (CLIA) as qualified to perform high complexity clinical laboratory testing. Dora Hernandez MD URINE ORDERABLES Final Result [facility] [address] , [place] [address] * (ABNORMAL) URINALYSIS REFLEX (02/11/2023 4:24 AM EDT) UA Color Red 02/11/2023 4:45 AM EDT [facility] UA Appear Cloudy(A) Clear 02/11/2023 4:45 AM EDT [facility] UA Glucose Negative Negative mg/dL 02/11/2023 4:45 AM EDT [facility] UA Ketones Trace (5 mg/dL)(A) Negative mg/dL 02/11/2023 4:45 AM EDT [facility] UA Blood Large(A) Negative 02/11/2023 4:45 AM EDT [facility] UA pH 8.5(H) 5.0 - 8.0 pH 02/11/2023 4:45 AM EDT [facility] UA Protein >=300(A) Negative mg/dL 02/11/2023 4:45 AM EDT [facility] UA Urobilinogen 1.0 <=1 mg/dL 4:45 AM EDT [facility] UA Bili Negative Negative 02/11/2023 4:45 AM EDT [facility] UA Nitrite Positive(A) Negative 02/11/2023 4:45 AM EDT [facility] UA Leuk Est Large(A) Negative 02/11/2023 4:45 AM EDT [facility] UA Spec Grav 1.015 1.001 - 1.035 no units 02/11/2023 4:45 AM EDT [facility] Comment:Reference range bishop d for random specimens only. UA WBC >100(H) 0 - 4 /HPF 02/11/2023 4:45 AM EDT [facility] UA RBC >100(H) 0 - 3 /HPF 02/11/2023 4:45 AM EDT [facility] UA Bacteria 4+(A) Negative /HPF 02/11/2023 4:45 AM EDT [facility] UA Trip Phos 2+ /LPF 02/11/2023 4:45 AM EDT [facility] Urine URINE SPECIMEN OBTAINED VIA [employer] URINARY CATHETER / Unknown 02/11/2023 4:24 AM EDT 02/11/2023 4:27 AM EDT us Chung Santiago MD URINE ORDERABLES Final Result Performing Organization Address [facility] de Phone Number [facility] [address] [place] [address] * EXTRA BRASHER URINE CX (02/11/2023 4:24 AM EDT) Urine URINE SPECIMEN OBTAINED VIA [employer] URINARY CATHETER / Unknown 02/11/2023 4:24 AM EDT 02/11/2023 4:27 AM EDT us Chung Santiago MD MICROBIOLOGY - GENERAL ORDERAB LES Final Result Performing Organization Address [facility] Phone Number [facility] [address] [place] [address] * (ABNORMAL) URINE CULTURE (NO STAIN) (02/11/2023 4:24 AM EDT) Only the most recent of4 resultswithin the time period is included. Culture Positive Growth(A) 02/13/2023 11:03 AM EDT [facility] Culture >100,000 CFU/mL Proteus mirabilis SUSCEPTIBIL ITY RESULT 02/13/2023 11:03 AM EDT [facility] Urine URINE SPECIMEN OBTAINED VIA [employer] URINARY CATHETER / Unknown 02/11/2023 4:24 AM EDT 02/11/2023 4:44 AM EDT Narrative Organism Antibiotic Method Susceptibility [facility] Amikacin SUSCEPTIBILITY RESULT <=16 ug/mL: Susceptible [facility] Amoxicillin/Clavulanate SUSCEPTIBILI TY RESULT <=8/4 ug/mL: Susceptible [facility] Ampicillin SUSCEPTIBILITY RESULT <=8 ug/mL: Susceptible [facility] Ampicillin/Sulbactam SUSCEPTIBILITY RESULT <=4/2 ug/mL: Susceptible [facility] Aztreonam SUSCEPTIBILITY RESULT <=4 ug/mL: Susceptible [facility] Cefazolin SUSCEPTIBILITY RESULT <=2 ug/mL: Susceptible [facility] Cefepime SUSCEPTIBILITY RESULT [facility] Cefotaxime SUSCEPTIBILITY RESULT [facility] Cefoxitin SUSCEPTIBILITY RESULT <=8 ug/mL: Susceptible [facility] Ceftazidime SUSCEPTIBILITY RESULT [facility] Ceftazidime/Avibactam SUSCEPTIBILITY RESULT [facility] Ceftolozane/Tazobactam SUSCEPTIBILIT Y RESULT [facility] Ceftriaxone SUSCEPTIBILITY RESULT [facility] Cefuroxime SUSCEPTIBILITY RESULT [facility] Ciprofloxacin SUSCEPTIBILITY RESULT <=0.25 ug/mL: Susceptible [facility] Ertapenem SUSCEPTIBILITY RESULT <=0.5 ug/mL: Susceptible [facility] Gentamicin SUSCEPTIBILITY RESULT <=2 ug/mL: Susceptible [facility] Imipenem SUSCEPTIBILITY RESULT [facility] Levofloxacin SUSCEPTIBILITY RESULT <=0.5 ug/mL: Susceptible [facility] Meropenem SUSCEPTIBILITY RESULT <=1 ug/mL: Susceptible [facility] Meropenem/Vaborbactam SUSCEPTIBILITY RESULT [facility] Minocycline SUSCEPTIBILITY RESULT [facility] Moxifloxacin SUSCEPTIBILITY RESULT [facility] Nitrofurantoin SUSCEPTIBILITY RESULT [facility] Piperacillin/Tazobactam SUSCEPTIBILI TY RESULT <=8 ug/mL: Susceptible [facility] Tetracycline SUSCEPTIBILITY RESULT [facility] Tigecycline SUSCEPTIBILITY RESULT [facility] Tobramycin SUSCEPTIBILITY RESULT <=2 ug/mL: Susceptible [facility] Trimethoprim/Sulfame tho xazole SUSCEPTIBILITY RESULT <=0.5/9.5 ug/mL: Susceptible Chung Santiago MD MICROBIOLOGY - GENERAL ORDERAB LES Final Result [facility] [address] [facility] , [place] [address] * MRI LUMBAR SPINE WO CONTRAST (01/08/2023 10:36 AM EDT) Anatomical Region Laterality Modality Spine, L-spine Magnetic Resonan ce 01/08/2023 10:3 6 AM EDT Impressions 01/08/2023 3:56 PM EDT Multilevel degenerative changes as detailed above. No acute osseous abnormality. - Note: Radiology results need to be interpreted within a comprehensive clinical context. ??If you have questions about the radiology report, please contact the office of the ordering clinician. Narrative 01/08/2023 3:56 PM EDT MRI LUMBAR SPINE WITHOUT CONTRAST, ??01/08/2023 10:36 AM ?? CLINICAL HISTORY: ??G62.9-Polyneuropathy, [id number]-OSQ-00-CM R29.898-Other symptoms and signs involving the musculoskeletal [id number]-60-CM. COMPARISON: ??CT abdomen pelvis April 14, 2022 PROCEDURE COMMENTS: Multiplanar multiecho MR imaging of the lumbar spine without contrast. FINDINGS: ?? No evidence of acute spine fracture. No aggressive marrow signal replacement. No acute spine fracture. Grade 1 anterolisthesis L4 on L5, minimal. Multilevel degenerative changes with varying degrees of disc desiccation and flattening, disc bulge/protrusion, endplate spurring, and facet degeneration. T11-T12: Minimal dorsal disc bulge with mild indentation of the ventral thecal sac. Central canal remains patent. Foramina unremarkable. T12-L1: Mid noncompressive foraminal narrowing. Minimal dorsal disc bulging with minimal indentation of the ventral thecal sac. Central canal remains patent. Foramina unremarkable. L1-L2: Disc degeneration includes broad-based dorsal and dorsolateral disc bulge/protrusion. Indentation ventral thecal sac, moderate AP thecal sac diameter approximately 7 mm. Mild RIGHT and moderate LEFT noncompressive foraminal narrowing. L2-L3: Disc degeneration includes shallow dorsal disc bulging with minimal indentation of the ventral thecal sac. Central canal and foramina remain widely patent. Mild bilateral facet degeneration is present. L3-L4: Diffuse disc bulging with associated peridiscal spurring is present, asymmetrically prominent along the RIGHT lateral and dorsolateral disc margin. There is indentation of ventral thecal sac. AP canal diameter is approximately 7.5 mm in the midline. Discosteophyte combines with facet hypertrophy to produce moderate RIGHT lateral recess stenosis. LEFT lateral recess is patent. LEFT foramen is widely patent. RIGHT foramen is moderately narrowed. L4-L5: Advanced disc degeneration with desiccation and flattening. Significant RIGHT dorsolateral discosteophyte protrusion combines with advanced facet degeneration to produce RIGHT-sided foraminal stenosis. RIGHT lateral recess is moderately stenotic. LEFT lateral recess is mildly narrowed. Central canal is reduced to an A-P diameter approximately 6.5 mm. LEFT foramen is patent. L5-S1: Disc degeneration is more pronounced along the LEFT lateral and dorsolateral disc margin. Moderate LEFT and mild RIGHT facet degeneration is present. LEFT lateral recess is mildly narrowed. Central canal is patent. LEFT foramen is moderately narrowed. Procedure Note Carlin Montelongo MD - 01/08/2023 MRI LUMBAR SPINE WITHOUT CONTRAST, 01/08/2023 10:36 AM CLINICAL HISTORY: G62.9-Polyneuropathy, fdrogyetbkk-QOE-46-CM R29.898-Other symptoms and signs involving the orrdhotlxgkvxhrirrngb-KUY-00-CM. COMPARISON: CT abdomen pelvis April 14, 2022 PROCEDURE COMMENTS: Multiplanar multiecho MR imaging of the lumbar spinewithout contrast. FINDINGS: No evidence of acute spine fracture. No aggressive marrow signalreplacement. No acute spine fracture. Grade 1 anterolisthesis L4 on L5, minimal. Multilevel degenerative changes with varying degrees of disc desiccationand flattening, disc bulge/protrusion, endplate spurring, and facetdegeneration. T11-T12: Minimal dorsal disc bulge with mild indentation of the ventralthecal sac. Central canal remains patent. Foramina unremarkable. T12-L1: Mid noncompressive foraminal narrowing. Minimal dorsal discbulging with minimal indentation of the ventral thecal sac. Central canal remainspatent. Foramina unremarkable. L1-L2: Disc degeneration includes broad-based dorsal and dorsolateraldisc bulge/protrusion. Indentation ventral thecal sac, moderate AP thecal sac diameter approximately 7 mm. Mild RIGHT and moderate LEFT noncompressive foraminal narrowing. L2-L3: Disc degeneration includes shallow dorsal disc bulging withminimal indentation of the ventral thecal sac. Central canal and foramina remainwidely patent. Mild bilateral facet degeneration is present. L3-L4: Diffuse disc bulging with associated peridiscal spurring ispresent, asymmetrically prominent along the RIGHT lateral and dorsolateral discmargin. There is indentation of ventral thecal sac. AP canal diameter isapproximately 7.5 mm in the midline. Discosteophyte combines with facet hypertrophy toproduce moderate RIGHT lateral recess stenosis. LEFT lateral recess is patent.LEFT foramen is widely patent. RIGHT foramen is moderately narrowed. L4-L5: Advanced disc degeneration with desiccation and flattening.Significant RIGHT dorsolateral discosteophyte protrusion combines with advancedfacet degeneration to produce RIGHT-sided foraminal stenosis. RIGHT lateralrecess is moderately stenotic. LEFT lateral recess is mildly narrowed. Central canalis reduced to an A-P diameter approximately 6.5 mm. LEFT foramen is patent. L5-S1: Disc degeneration is more pronounced along the LEFT lateral and dorsolateral disc margin. Moderate LEFT and mild RIGHT facet degenerationis present. LEFT lateral recess is mildly narrowed. Central canal is patent.LEFT foramen is moderately narrowed. IMPRESSION: Multilevel degenerative changes as detailed above. No acute osseous abnormality. - Note: Radiology results need to be interpreted within a comprehensiveclinical context. If you have questions about the radiology report, please contactthe office of the ordering clinician. Dora Hernandez MD IMG MRI ORDERABLES Final Result * HEMOGLOBIN A1C (12/16/2022 11:15 AM EST) Only the most recent of3 resultswithin the time period is included. Hgb A1C 5.5 4.2 - 5.6 % 12/16/2022 5:21 PM EST [facility] Est. Avg Glucose 111 mg/dL 12/16/2022 5:21 PM EST Plated Blood VENOUS BLOOD / Unknown Venipuncture / Unknown 12/16/2022 11:15 AM EST 12/16/2022 11:15 AM EST Narrative [facility] - 12/16/2022 5:21 PM EST REFERENCE RANGE: Normal: 4.0-5.6% Pre-diabetes: 5.7-6.4% Provisional diagnosis of diabetes: >6.4% Hgb F>10% and anything which shortens red cell survival, such as hemolytic anemia, or unstable hemoglobin variants such as HbSS, HbSC, or HbCC, will lower the HbA1c value associated with a given level of glycemic control. ? Dora Hernandez MD CHEMISTRY ORDERABLES Final Resu lt [facility] [address] [facility] , [place] [address] * VITAMIN B12 LEVEL (12/16/2022 11:15 AM EST) Vitamin B12 690 232 - 1,245 pg/mL 12/16/2022 4:57 PM EST [facility] Blood VENOUS BLOOD / Unknown Venipuncture / Unknown 12/16/2022 11:15 AM EST 12/16/2022 11:15 AM EST Narrative [facility] [employer] - 12/16/2022 4:57 PM EST Ingestion of elizabeth doses of biotin (>5 mg/day) taken within 8 hours of drawing blood sample can interfere with this immunoassay test. us Dora Hernandez MD CHEMISTRY ORDERABLES Final Resu lt Performing Organization Address City/[facility]/ZIP Co de Phone Number [facility] [employer] [facility] [address] [facility] , [place] [address] * BLOOD UREA NITROGEN (12/03/2022 10:52 AM EST) BUN 21 8 - 23 mg/dL 12/03/2022 3:22 PM EST [facility] [employer] Blood VENOUS BLOOD / Unknown Venipuncture / Unknown 12/03/2022 10:52 AM EST 12/03/2022 10:52 AM EST us Dani Levine MD CHEMISTRY ORDERABLES Final R esult Performing Organization Address City/[facility]/ZIP Co de Phone Number [facility] [address] [facility] , [place] [address] * CREATININE (12/03/2022 10:52 AM EST) Creatinine 1.21 0.67 - 1.30 mg/dL 12/03/2022 3:22 PM EST [facility] [employer] eGFR (CKD-EPIcr 2020) 61 >=60 mL/min/1.7 3 m2 12/03/2022 3:22 PM EST [facility] Comment:Estimated GFR was ca lculated using the CKD-EPIcr (2020) equation refit without race. The equation is recommended by the National Kidney Foundation - [place] Society of Nephrology Task Force. Blood VENOUS BLOOD / Unknown Venipuncture / Unknown 12/03/2022 10:52 AM EST 12/03/2022 10:52 AM EST Dani Levine MD CHEMISTRY ORDERABLES Final R esult [facility] [address] [facility], [address] [place] [id number] [facility] [address] [place] [address] * (ABNORMAL) SEP URINALYSIS POC (11/05/2022 11:08 AM EST) Only the most recent of3 resultswithin the time period is included. UA Color POC Red Color 11/05/2022 11:10 AM EST [facility] UA Appear POC Cloudy(A) Clear 11/05/2022 11:10 AM EST [facility] UA Gluc POC Negative Negative mg/dL 11/05/2022 11:10 AM EST [facility] UA Bili POC Large(A) Negative 11/05/2022 11:10 AM EST [facility] UA Ketones POC 15(A) Negative mg/dL 11/05/2022 11:10 AM EST [facility] UA SG POC 1.015 1.001 - 1.035 no units 11/05/2022 11:10 AM EST [facility] UA Blood POC Large(A) Negative 11/05/2022 11:10 AM EST [facility] UA pH POC 5.5 5.0 - 8.0 pH 11/05/2022 11:10 AM EST [facility] UA Protein POC >=300(A) Negative mg/dL 11/05/2022 11:10 AM EST [facility] UA Urobilinogen POC 4.0(A) 0.2, 1.0 11/05/2022 11:10 AM EST [facility] UA Nitrite POC Negative Negative 11/05/2022 11:10 AM EST [facility] UA Leuk Est POC Large(A) Negative 11:10 AM EST [facility] Urine URINE SPECIMEN COLLECTION / Unknown 11/05/2022 11:08 AM EST 11/05/2022 11:10 AM EST Dora Hernandez MD POINT OF CARE TEST ORDERABLES F inal Result [facility] [address] [facility] [place] [address] * CT ABDOMEN PELVIS WO ORAL OR IV CONTRAST (04/14/2022 1:19 PM EDT) Anatomical Region Laterality Modality Abdomen, Pelvis Computed Tomogra phy 04/14/2022 1:19 PM EDT Impressions 04/14/2022 3:15 PM EDT Mild to moderate right greater than left hydroureteronephrosis without urinary tract stone identified. Moderate distention of the urinary bladder. Prostatomegaly. These findings could represent sequela of bladder outlet obstruction. Neurogenic bladder or infectious process not completely excluded. Correlate with urinalysis. - Note: Radiology results need to be interpreted within a comprehensive clinical context. ??If you have questions about the radiology report, please contact the office of the ordering clinician. Narrative 04/14/2022 3:[address] ABDOMEN AND PELVIS WITHOUT IV OR ORAL CONTRAST, ??04/14/2022 1:19 PM CLINICAL HISTORY: ??R31.0-Gross snstggido-QBN-24-CM R10.9-Unspecified abdominal yflx-NIL-33-CM COMPARISON: ??Head CT January 16, 2016. PROCEDURE COMMENTS: Noncontrast multidetector CT examination of the abdomen and pelvis without IV or oral contrast per protocol. Multiplanar reconstructions. FINDINGS: ?? LOWER THORAX: ??Mild bibasilar atelectasis. There is a stable-appearing 8 mm nodule in the base of the right lower lobe compared to December 2015, compatible with benign process. ABDOMEN AND PELVIS: The liver, gallbladder, pancreas are normal. Calcified granulomas in the spleen are present. Adrenal glands are normal. There is mild to moderate right hydronephrosis and right hydroureter. Hydroureter extends to the ureterovesicular junction without ureteral or urinary bladder stone identified. There is mild to moderate left hydroureteronephrosis as well, also without stone. Moderate distention of the urinary bladder is noted. Prostate is enlarged measuring 6 cm transverse dimension. There are no dilated loops of bowel. The appendix is normal. No free air. There is severe prominently sigmoid diverticulosis without discrete evidence of diverticulitis. Moderate atherosclerotic calcification of the abdominal aorta. There is no mass lesion, fluid collection, or lymphadenopathy. No acute or destructive osseous abnormality. Procedure Note Maximilian Harding MD - 04/14/2022 CT ABDOMEN AND PELVIS WITHOUT IV OR ORAL CONTRAST, 04/14/2022 1:19 PM CLINICAL HISTORY: R31.0-Gross lxjklfitg-LTF-90-CM R10.9-Unspecified abdominal qdvx-LVJ-39-CM COMPARISON: Head CT January 16, 2016. PROCEDURE COMMENTS: Noncontrast multidetector CT examination of theabdomen and pelvis without IV or oral contrast per protocol. Multiplanarreconstructions. FINDINGS: LOWER THORAX: Mild bibasilar atelectasis. There is a stable-appearing 8mm nodule in the base of the right lower lobe compared to December 2015,compatible with benign process. ABDOMEN AND PELVIS: The liver, gallbladder, pancreas are normal.Calcified granulomas in the spleen are present. Adrenal glands are normal. There ismild to moderate right hydronephrosis and right hydroureter. Hydroureterextends to the ureterovesicular junction without ureteral or urinary bladder stone identified. There is mild to moderate left hydroureteronephrosis as well,also without stone. Moderate distention of the urinary bladder is noted.Prostate is enlarged measuring 6 cm transverse dimension. There are no dilated loops of bowel. The appendix is normal. No free air.There is severe prominently sigmoid diverticulosis without discrete evidenceof diverticulitis. Moderate atherosclerotic calcification of the abdominalaorta. There is no mass lesion, fluid collection, or lymphadenopathy. No acute or destructive osseous abnormality. IMPRESSION: Mild to moderate right greater than left hydroureteronephrosis withouturinary tract stone identified. Moderate distention of the urinary bladder. Prostatomegaly. These findings could represent sequela of bladder outlet obstruction. Neurogenic bladder or infectious process not completelyexcluded. Correlate with urinalysis. - Note: Radiology results need to be interpreted within a comprehensiveclinical context. If you have questions about the radiology report, please contactthe office of the ordering clinician. 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 Grav, UA 1.020 1.001 - 1.035 G/DL SEP OFFICE Blood, UA large POS/NEG SEP OFFICE pH, UA 6.5 5.0 - 8 SEP OFFICE Protein, UA 30 POS/NEG SEP OFFICE Urobilinogen, UA 0.2 0.2 - 1.0 MG/DL SEP OFFICE Nitrite, UA neg POS/NEG SEP OFFICE Leukocytes, UA small POS/NEG SEP OFFICE Appear BF SEP OFFICE Lot Number [id number] SEP OFFICE Expiration Date 03/25/2023 SEP OFFICE SeriAl # [id number] SEP OFFICE Urine 04/13/2022 11:5 3 AM EDT Dora Hernandez MD POINT OF CARE TEST ORDERABLES F inal Result SEP OFFICE * CREATINE KINASE (04/17/2021 3:39 PM EDT) CK 81 39 - 308 U/L 04/17/2021 7:15 PM EDT Plated Blood VENOUS BLOOD / Unknown Venipuncture / Unknown 04/17/2021 3:39 PM EDT 04/17/2021 3:39 PM EDT Dora Hernandez MD CHEMISTRY ORDERABLES Final Resu lt Plated [address] [place] [address] , [place] [address] * (ABNORMAL) HB-1 CUSTOM UDS PANEL-QUEST (10/03/2019 1:40 PM EST) Only the most recent of2 resultswithin the time period is included. Prescribed Drug 1 Lorazepam [facility] Ritalinic Acid NEGATIVE <100 ng/mL [facility] Comment:See Note 1 [facility] Ritalinic Acid CONSISTENT [facility] medMatch Comments [facility] Comment:See Note 2 Prescribed Drug 1 Lorazepam [facility] [place] 6-Acetylmorphine,G C/MS NEGATIVE <10 ng/mL [facility] [place] medMATCH 6 Acetylmorphine CONSISTENT [facility] [place] medMatch Comments [facility] [place] Comment:See Note 2 Prescribed Drug 1 Lorazepam [facility] [place] Creatinine, Urine 58.5 > or = 20.0 mg/dL [facility] [place] UA Spec Grav 1.014 > or = 1.003 [facility] [place] UA pH 5.4 4.5 - 9.0 [facility] [place] Oxidant NEGATIVE <200 mcg/mL [facility] [place] Amphetamines NEGATIVE <500 ng/mL [facility] [place] [facility]MATCH Amphetamines CONSISTENT [facility] [place] Barbiturates NEGATIVE <300 ng/mL [facility] [place] [facility]MATCH Barbiturates CONSISTENT [facility] [place] Benzodiazepines NEGATIVE <100 ng/mL [facility] [place] [facility]MATCH Benzodiazepines INCONSISTENT( A) [facility] [place] Marijuana Metabolite NEGATIVE <20 ng/mL [facility] [place] [facility]MATCH Marijuana Metab CONSISTENT [facility] [place] Cocaine Metabolite NEGATIVE <150 ng/mL [facility] [place] [facility]MATCH Cocaine Metab CONSISTENT [facility] Methadone NEGATIVE <100 ng/mL [facility] [place] medMATCH Methadone CONSISTENT [facility] [place] Opiates NEGATIVE <100 ng/mL [facility] [place] [facility]MATCH Opiates CONSISTENT [facility] [place] Oxycodone NEGATIVE <100 ng/mL [facility] [place] [facility] Oxycodone CONSISTENT [facility] [place] medMatch Comments [facility] [place] Comment: See Note 2 Note 1 This test was developed and its analytical performance characteristics have been determined by [facility]. It has not been cleared or approved by the FDA. This assay has been validated pursuant to the CLIA regulations and is used for clinical purposes. Note 2 This drug testing is for medical treatment only. ?? Analysis was performed as non-forensic testing and these results should be used only by healthcare providers to render diagnosis or treatment, or to monitor progress of medical conditions. [facility] comments are: - present when drug test results may be the result of ?? metabolism of one or more drugs or when results are ?? inconsistent with prescribed medication(s) listed. - may be blank when drug results are consistent with ?? prescribed medication(s) listed. For assistance with interpreting these drug results, please contact a [facility] Toxicology Specialist: [phone] ( ), M-F, 8am-6pm EST. 10/03/2019 1:40 PM EST 10/03/2019 6:53 PM EST Dora Hernandez MD [facility]PDM ORDERABLE (NON-[facility]H) F inal Result [facility] [address] [place] [id number] [facility] [address] [place] [address] * [facility] AAA SCREENING EXAM MEDICARE (12/30/2016 10:18 AM EST) Anatomical Region Laterality Modality Abdomen Vascular Imaging 12/30/2016 9:56 AM EST Impressions 12/30/2016 5:28 PM EST ??CONCLUSIONS ??No evidence of abdominal aortic or bilateral common iliac artery aneurysm. ?Normal Doppler flow velocities noted throughout the aorta and common iliac arteries. ?Incidental Finding: Large anechoic structure noted throughout the entire exam appearing superficial to the abdominal aorta ?without limiting visualization and measurements of the aorta, possible cyst. Narrative Procedure Note Dago Menard MD - 12/30/2016 IMPRESSION CONCLUSIONS No evidence of abdominal aortic or bilateral common iliac arteryaneurysm. Normal Doppler flow velocities noted throughout the aorta and commoniliac arteries. Incidental Finding: Large anechoic structure noted throughout the entireexam appearing superficial to the abdominal aorta without limiting visualization and measurements of the aorta, possiblecyst. Dora Hernandez MD IMG VASCULAR ORDERABLES Final R esult * CT CHEST W CONTRAST (12/30/2016 10:06 AM EST) Only the most recent of3 resultswithin the time period is included. Anatomical Region Laterality Modality Chest Computed Tomogra phy 12/30/2016 10:0 6 AM EST Addenda Addendum by Favio Fisher MD on 12/30/2016 12:25 PM EST Addendum to chest CT from 12/30/2016: Moderate sized pericardial effusion is new from 07/20/2016 and measures 2.1 cm in greatest dimension. Phillip Code ashley next Impressions 12/30/2016 11:12 AM EST Stable 5 [...] Clinical: 76 years. Male . R91.1-Solitary pulmonary gyidqg-OIG-60-CM. Smoking history. 75 mL of Isovue-370 administered [...] History: Clinical: 76 years. Male . R91.1-Solitary wbfngjcnhubuidx-CHB-75-CM. Smoking history. 75 mL of Isovue-370 administered [...] Favio Fisher Code follow-up Code jot next day Dain Burris MD IMG CT ORDERABLES Edited Result - Final * CREATININE ISTAT (12/30/2016 9:39 AM EST) Only the most recent of2 resultswithin the time period is included. Creatinine 0.8 0.6 - 1.3 mg/dL [facility] Blood specimen (specimen) 12/30/2016 9:39 AM EST 12/30/2016 9:39 AM EST Dain Burris MD POINT OF CARE TEST ORDERABLES Fi nal Result [facility] [address] [facility] [place] [address] * GMED COLONOSCOPY (05/14/2016 2:40 PM EDT) 05/14/2016 2:40 PM EDT Impressions [facility] - 05/14/2016 2:59 PM EDT Moderate diverticulosis of the descending colon and sigmoid colon. Plan: Follow-up as needed This section is an excerpt of the full report. us Young Hobson MD GI PROCEDURE ORDERABLES Fin al Result [facility] [address] [place] [address] * PET CT SKULL BASE TO MID THIGH (01/16/2016 1:25 PM EDT) Anatomical Region Laterality Modality Positron Emissio n Tomography (PET) 01/16/2016 1:25 PM EDT Impressions 01/16/2016 4:00 PM EDT IMPRESSION: 2 right lung nodules show no hypermetabolic activity. Because of their small size these could be falsely negative by PET scan. Follow-up CT suggested. Narrative 01/16/2016 4:[address] SKULL BASE TO MID THIGH 01/16/2016 1:25 PM Clinical: R91.8-Other nonspecific abnormal finding of lung vufei-HMB-87-CM lung nodule. TECHNIQUE: 15.0 mCi F-18 FDG injected into right antecubital vein. Blood glucose 115 mg/dL. COMPARISON: CT scan December 23, 2015. Findings: The right upper and lower lobe lung nodules are unchanged in size. Neither is hypermetabolic. Remainder of activity is physiologic. CT images show distention of the urinary bladder and mild enlargement of the prostate gland. Procedure Note Guilherme Lakhani MD - 01/16/[address] SKULL BASE TO MID THIGH 01/16/2016 1:25 PM Clinical: R91.8-Other nonspecific abnormal finding of lung etkey-IPD-69-CMlung nodule. TECHNIQUE: 15.0 mCi F-18 FDG injected into right antecubital vein. Bloodglucose 115 mg/dL. COMPARISON: CT scan December 23, 2015. Findings: The right upper and lower lobe lung nodules are unchanged insize. Neither is hypermetabolic. Remainder of activity is physiologic. CT imagesshow distention of the urinary bladder and mild enlargement of the prostategland. IMPRESSION: 2 right lung nodules show no hypermetabolic activity. Becauseof their small size these could be falsely negative by PET scan. Follow-upCT suggested. us Dain Burris MD IMG PET ORDERABLES Final Result * (ABNORMAL) GLUCOSE METER POC (01/16/2016 11:35 AM EDT) Glucose Meter POC 115(H) 70 - 100 mg/dL [facility] Blood specimen (specimen) 01/16/2016 11:35 AM EDT 01/16/2016 11:35 AM EDT us Dain Burris MD POINT OF CARE TEST ORDERABLES Fi nal Result Performing Organization Address [facility] de Phone Number [facility] [address] [place] [address] * PULMONARY FUNCTION TEST (01/14/2016 10:32 AM EDT) 01/14/2016 10:3 2 AM EDT Impressions [facility] - 01/14/2016 10:32 AM EDT Good patient effort and understanding. ??Acceptable results and reproducibility. NORMAL PFT. DIFFUSING CAPACITY IS NORMAL, corrected for hemoglobin. Clinical Correlation is Required. ?? This data was interpreted based upon the 2005 ATS/ERS Task Force Position Statement: Interpretative Strategies for Lung Function Tests. This section is an excerpt of the full report. 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 In addition, there is a subcentimeter hypoechoic and predominantly solid nodule in the right thyroid midpole posteriorly. This warrants ultrasound follow-up to assess for stability, as detailed above. Narrative 01/14/2016 10:36 AM EDT THYROID ULTRASOUND DATED 01/14/2016 COMPARISON: None HISTORY: Abnormal blood work, thyroid lesion FINDINGS: Right thyroid lobe measures: 5.9 x 1.8 x 2.5 cm Left thyroid lobe measures: 5.8 x 2.7 x 1.7 cm Thyroid isthmus measures 8 mm in thickness. There are multiple cystic nodules in the thyroid bilaterally, which contain echogenic foci within them. Many of these echogenic foci produce comet tail artifact, most compatible with colloid. Cystic thyroid nodules measure up to 1 cm in size. In addition, located in the posterior aspect of the right thyroid midpole, there is a circumscribed hypoechoic and predominantly solid nodule measuring 0.8 x 0.6 x 0.8 cm. RECOMMENDATION CATEGORY: ?Category 1: Normal, clinical followup. ?Category 2: Benign, clinical followup. X Category 3: Probably Benign, 6-12mo followup US. ?Category 4: Suspicious, US guided biopsy. ?Category 5: Highly Suspicious, US guided biopsy. ?Category 6: Previously biopsied mass. Imaging follow-up as ?clinically indicated. Procedure Note Waqar Jiménez MD - 01/14/2016 THYROID ULTRASOUND DATED 01/14/2016 COMPARISON: None HISTORY: Abnormal blood work, thyroid lesion FINDINGS: Right thyroid lobe measures: 5.9 x 1.8 x 2.5 cm Left thyroid lobe measures: 5.8 x 2.7 x 1.7 cm Thyroid isthmus measures 8 mm in thickness. There are multiple cystic nodules in the thyroid bilaterally, whichcontain echogenic foci within them. Many of these echogenic foci produce comettail artifact, most compatible with colloid. Cystic thyroid nodules measure upto 1 cm in size. In addition, located in the posterior aspect of the rightthyroid midpole, there is a circumscribed hypoechoic and predominantly solidnodule measuring 0.8 x 0.6 x 0.8 cm. RECOMMENDATION CATEGORY: Category 1: Normal, clinical followup. Category 2: Benign, clinical followup. X Category 3: Probably Benign, 6-12mo followup US. Category 4: Suspicious, US guided biopsy. Category 5: Highly Suspicious, US guided biopsy. Category 6: Previously biopsied mass. Imaging follow-up as clinically indicated. 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 In addition, there is asubcentimeter hypoechoic and predominantly solid nodule in the right thyroid midpole posteriorly. This warrants ultrasound follow-up to assess for stability,as detailed above. Dora Hernandez MD IM US ORDERABLES Final Result * (ABNORMAL) BASIC METABOLIC PANEL (2015 10:51 AM EST) Only the most recent of3 resultswithin the time period is included. Sodium 133(L) 136 - 145 mmol/L [facility] Potassium 4.0 3.5 - 5.0 mmol/L [facility] Chloride 97(L) 98 - 107 mmol/L [facility] Total CO2 21(L) 22 - 29 mmol/L [facility] Anion Gap 15 7 - 16 mmol/L [facility] Calcium 9.1 8.8 - 10.2 mg/dL [facility] Glucose Lvl 116(H) 82 - 100 mg/dL [facility] BUN 14 8 - 23 mg/dL [facility] Creatinine 0.83 0.67 - 1.30 mg/dL [facility] GFR Afr Am >60 [facility] GFR Non Afr Am >60 [facility] Blood specimen (specimen) UPPER LIMB STRUCTURE / Unknown 2015 10:51 AM EST 2015 3:33 PM EST Dora Hernandez MD CHEMISTRY ORDERABLES Edited Res ult - Final [facility] [address] [place] [address] * SCANNED RHYTHM STRIPS (12/25/2015 9:51 PM EST) Anatomical Region Laterality Modality Other 12/25/2015 9:51 PM EST us Unknown Unknown IM ECG ORDERABLES Final Result * SODIUM LEVEL URINE (12/23/2015 8:10 AM EST) Urine Sodium 68 mmol/L [facility] Urine specimen (specimen) 12/23/2015 8:10 AM EST 12/23/2015 11:09 AM EST Jose J Mayen MD URINE ORDERABLES Final Result Performing Organization Address [facility] de Phone Number [facility] [address] [place] [address] * OSMOLALITY URINE (12/23/2015 8:10 AM EST) Pathologist [facility] Urine Osmolality 357 50 - 1,400 mOsm/kg [facility] Comment: Normal Range: ??50 mOSM/kg during maximum water diuresis to ? 1400 mOSM/kg during maximum urinary concentration Reference range valid for random specimens only. Urine specimen (specimen) 12/23/2015 8:10 AM EST 12/23/2015 11:09 AM EST Jose J Mayen MD URINE ORDERABLES Final Result Performing Organization Address [facility] [place] [address] * (ABNORMAL) URINALYSIS (12/23/2015 8:10 AM EST) [facility] UA Color Straw [facility] UA Appear Clear Clear [facility] UA Glucose Negative Negative [facility] UA Ketones Negative Negative [facility] UA Blood Negative Negative [facility] UA pH 5.5 5.0 - 8.0 [facility] Comment:Reference range bishop d for random specimens only. UA Protein Negative Negative [facility] UA Urobilinogen 0.2 E.U./dL <=1 E.U./dL [facility] UA Nitrite Negative Negative [facility] UA Leuk Est Trace(A) Negative [facility] UA Spec Grav 1.010 1.001 - 1.035 [facility] Comment:Reference range bishop d for random specimens only. UA WBC 0-2 0 - 4 /HPF [facility] Urine specimen (specimen) URINE SPECIMEN COLLECTION, CLEAN CATCH / Unknown 12/23/2015 8:10 AM EST 12/23/2015 11:58 AM EST Kim He MD URINE ORDERABLES Fin al Result Performing Organization Address City/[facility]/ZIP Co de Phone Number [facility] [address] [place] [address] * THYROID STIMULATING HORMONE (12/23/2015 5:30 AM EST) Only the most recent of2 resultswithin the time period is included. TSH 1.290 0.270 - 4.200 mcIU/mL [facility] Blood specimen (specimen) UPPER LIMB STRUCTURE / Unknown 12/23/2015 5:30 AM EST 12/23/2015 7:57 AM EST Arian Waldron MD CHEMISTRY ORDERABLES Cynthia l Result Performing Organization Address [facility] Co de Phone Number [address] [address] * (ABNORMAL) T4, FREE (THYROXINE) (12/23/2015 5:30 AM EST) Only the most recent of2 resultswithin the time period is included. Free T4 2.08(H) 0.93 - 1.70 ng/dL [facility] Blood specimen (specimen) UPPER LIMB STRUCTURE / Unknown 12/23/2015 5:30 AM EST 12/23/2015 7:57 AM EST Arian Waldron MD CHEMISTRY ORDERABLES Cynthia l Result Performing Organization Address [facility] Co de Phone Number [address] [address] * PROSTATE SPECIFIC ANTIGEN (TUMOR MARKER) (12/23/2015 5:30 AM EST) Total PSA 1.44 ng/mL [facility] Comment: 2009 AUA Best Practice Statement Guidelines-Age Adjusted Reference Intervals: Age Range ? Whites ?Americans ? Americans 40-49 years ? 0-2.5 ng/mL ? 0-2.0 ng/mL ? 0-2.0 ng/mL 50-59 years ? 0-3.5 ng/mL ? 0-4.0 ng/mL ? 0-3.0 ng/mL 60-69 years ? 0-4.5 ng/mL ? 0-4.5 ng/mL ? 0-4.0 ng/mL 70-79 years ? 0-6.5 ng/mL ? 0-5.5 ng/mL ? 0-5.0 ng/mL [facility] uses the [employer] Total PSA assay, which is approved as an aid in detecting prostate cancer when used in conjunction with digital rectal exam in men 50 years or older and also as an adjunctive test to aid in the management of prostate cancer patients. ?? Prostatic biopsy is required for the diagnosis of cancer. ??Values obtained with different assay methods should not be used interchangeably. ??Consider the above as guidelines only. ??The risk of prostate cancer is a continuum across a range of PSA levels, with increasing risk as the PSA increases. Blood specimen (specimen) UPPER LIMB STRUCTURE / Unknown 12/23/2015 5:30 AM EST 12/23/2015 7:57 AM EST Arian Waldron MD CHEMISTRY ORDERABLES Cynthia l Result Performing Organization Address [facility] de Phone Number [facility] [address] [place] [address] * PHOSPHORUS LEVEL (12/23/2015 5:30 AM EST) Phosphorus 4.5 2.5 - 4.5 mg/dL [facility] Blood specimen (specimen) UPPER LIMB STRUCTURE / Unknown 12/23/2015 5:30 AM EST 12/23/2015 5:33 AM EST Arian Waldron MD CHEMISTRY ORDERABLES Cynthia l Result Performing Organization Address [facility] de Phone Number [facility] [address] [place] [address] * (ABNORMAL) OSMOLALITY (12/23/2015 5:30 AM EST) Osmo-serum 271(L) 275 - 295 mOsm/kg [facility] Blood specimen (specimen) UPPER LIMB STRUCTURE / Unknown 12/23/2015 5:30 AM EST 12/23/2015 7:57 AM EST Jose J Mayen MD CHEMISTRY ORDERABLES Final Res ult Performing Organization Address [facility] de Phone Number [facility] [address] [place] [address] * MAGNESIUM LEVEL (12/23/2015 5:30 AM EST) Magnesium 1.7 1.6 - 2.4 mg/dL [facility] Blood specimen (specimen) UPPER LIMB STRUCTURE / Unknown 12/23/2015 5:30 AM EST 12/23/2015 5:33 AM EST Arian Waldron MD CHEMISTRY ORDERABLES Cynthia l Result Performing Organization Address [facility]/ZIP Co de Phone Number [facility] [address] [place], [place] [id number] * (ABNORMAL) LIPID SCREEN (12/23/2015 5:30 AM EST) Only the most recent of2 resultswithin the time period is included. Pathologist [facility] Cholesterol 173 <=200 mg/dL [facility] Comment: < 200 ?Desirable 200 - 239 ? Borderline High >= 240 ?High Triglyceride 98 <=150 mg/dL [facility] Comment: < 150 ? Normal 150 - 199 ?Borderline High 200 - 499 ?High ??>= 500 ? Very High HDL 50 >=40 mg/dL [facility] Comment: ?? > 60 ?Optimal 40 - 60 ?Acceptable ?? < 40 ?Low LDL Calculated 103(H) <=100 mg/dL [facility] Comment: ??< 100 ?Optimal 100 - 129 ? Near or above optimal 130 - 159 ? Borderline High 160 - 189 ? High >= 190 ?Very High Blood specimen (specimen) UPPER LIMB STRUCTURE / Unknown 12/23/2015 5:30 AM EST 12/23/2015 7:57 AM EST Arian Waldron MD CHEMISTRY ORDERABLES Edit ed Result - Final Performing Organization Address [facility] Co de Phone Number [facility] [address] [place] [address] * TROPONIN-T (12/23/2015 1:02 AM EST) Only the most recent of3 resultswithin the time period is included. [facility] Troponin-T <0.01 <=0.00 ng/mL [facility] Comment: Values > or = 0.01 ng/mL have been shown to have prognostic value. Blood specimen (specimen) 12/23/2015 1:02 AM EST 12/23/2015 1:08 AM EST Jose J Mayen MD CHEMISTRY ORDERABLES Final Res ult [facility] [address] [place] [address] * CT HEAD WO CONTRAST (12/22/2015 8:12 PM EST) Anatomical Region Laterality Modality Head Computed Tomogra phy 12/22/2015 8:12 PM EST Impressions 12/22/2015 8:22 PM EST Impression: No acute findings of the brain. Narrative 12/22/2015 8:[address] HEAD WO CONTRAST 12/22/2015 8:12 PM HISTORY: ??-DIZZINESS, bilateral ear infections. Compare: None Mild to moderate sinusitis with greatest involvement in right maxillary sinus Visualized mastoids clear Atrophy and ischemic leukoencephalopathy noted. No hemorrhage or mass effect. No fracture or extraaxial collection. Procedure Note Tu Mosquera MD - 12/22/2015 CT HEAD WO CONTRAST 12/22/2015 8:12 PM HISTORY: -DIZZINESS, bilateral ear infections. Compare: None Mild to moderate sinusitis with greatest involvement in right maxillarysinus Visualized mastoids clear Atrophy and ischemic leukoencephalopathy noted. No hemorrhage or masseffect. No fracture or extraaxial collection. Impression: No acute findings of the brain. Jose J Mayen MD IMG CT ORDERABLES Final Result * XR CHEST PA AND LATERAL (12/22/2015 8:11 PM EST) Only the most recent of2 resultswithin the time period is included. Anatomical Region Laterality Modality Chest Radiographic Kim ging 12/22/2015 8:11 PM EST Impressions 12/22/2015 8:27 PM EST IMPRESSION: Mild atelectasis left base Narrative 12/22/2015 8:27 PM EST XR CHEST PA AND LATERAL 12/22/2015 8:11 PM HISTORY: ??-DIZZINESS, hyponatremia. Compare: November 12, 2014 Heart size normal No pneumothorax Mild atelectasis noted Procedure Note Tu Mosquera MD - 12/22/2015 XR CHEST PA AND LATERAL 12/22/2015 8:11 PM HISTORY: -DIZZINESS, hyponatremia. Compare: November 12, 2014 Heart size normal No pneumothorax Mild atelectasis noted IMPRESSION: Mild atelectasis left base Jose J Mayen MD IMG DIAGNOSTIC IMAGING ORDERAB LES Final Result * DIFFERENTIAL (12/22/2015 7:00 PM EST) Neut Percent 57.6 % [facility] Lymph Percent 25.6 % [facility] [place] Percent 13.5 % [facility] Eos Percent 2.5 % [facility] Baso Percent 0.8 % [facility] Neut# 5.0 1.8 - 7.7 x10(3)/mcL [facility] Lymph# 2.2 0.6 - 4.8 x10(3)/mcL [facility] [place]# 1.2 0.0 - 1.3 x10(3)/mcL [facility] Eos# 0.2 0.0 - 0.5 x10(3)/mcL [facility] Baso# 0.1 0.0 - 0.2 x10(3)/mcL [facility] Blood specimen (specimen) 12/22/2015 7:00 PM EST 12/22/2015 7:20 PM EST [facility] HEMATOLOGY ORDERABL ES Final Result [facility] [address] [place] [address] * CBC WITH AUTO DIFF (12/22/2015 7:00 PM EST) WBC 8.6 4.0 - 11.0 x10(3)/mcL [facility] RBC 4.74 4.30 - 5.81 x10(6)/mcL [facility] Hgb 15.0 13.5 - 17.1 gm/dL [facility] Hct 42.8 38.9 - 51.6 % [facility] MCV 90.2 82.5 - 99.8 fL [facility] MCH 31.6 27.0 - 34.3 pg [facility] MCHC 35.0 32.1 - 35.3 gm/dL [facility] RDW 13.4 11.5 - 15.0 % [facility] Platelet 339 144 - 423 x10(3)/mcL [facility] MPV 8.2 6.8 - 10.8 fL [facility] Blood specimen (specimen) UPPER LIMB STRUCTURE / Unknown 12/22/2015 7:00 PM EST 12/22/2015 7:20 PM EST us Jose J Mayen MD HEMATOLOGY ORDERABLES Final Re sult [facility] [address] [place] [address] * EK EKG 12 LEAD (12/22/2015 6:49 PM EST) Anatomical Region Laterality Modality Other 12/22/2015 6:49 PM EST Impressions 12/23/2015 9:27 AM EST ? Stationary ECG Study ?[facility] ? Interpretive Statements ? SINUS RHYTHM WITH OCCASIONAL VENTRICULAR PREMATURE COMPLEXES Electronically Signed On 12-23-2015 9:27:15 EST by Benedicto Jacobsen MD Narrative Procedure Note Benedicto Jacobsen MD - 12/23/2015 IMPRESSION Stationary ECG Study [facility] Interpretive Statements SINUS RHYTHM WITH OCCASIONAL VENTRICULAR PREMATURE COMPLEXES Electronically Signed On 12-23-2015 9:27:15 EST by Benedicto Jacobsen MD us Jose J Mayen MD IMG ECG ORDERABLES Final Resul t * PROSTATE SPECIFIC ANTIGEN (SCREENING) (11/12/2014 11:16 AM EST) Total PSA 2.43 ng/mL [facility] Comment: 2008 [employer] Best Practice Statement Guidelines-Age Adjusted Reference Intervals: Age Range ? Whites ?Americans ? Americans 40-49 years ? 0-2.5 ng/mL ? 0-2.0 ng/mL ? 0-2.0 ng/mL 50-59 years ? 0-3.5 ng/mL ? 0-4.0 ng/mL ? 0-3.0 ng/mL 60-69 years ? 0-4.5 ng/mL ? 0-4.5 ng/mL ? 0-4.0 ng/mL 70-79 years ? 0-6.5 ng/mL ? 0-5.5 ng/mL ? 0-5.0 ng/mL [facility] uses the [employer] Total PSA assay, which is approved as an aid in detecting prostate cancer when used in conjunction with digital rectal exam in men 50 years or older and also as an adjunctive test to aid in the management of prostate cancer patients. ?? Prostatic biopsy is required for the diagnosis of cancer. ??Values obtained with different assay methods should not be used interchangeably. ??Consider the above as guidelines only. ??The risk of prostate cancer is a continuum across a range of PSA levels, with increasing risk as the PSA increases. Blood specimen (specimen) UPPER LIMB STRUCTURE / Unknown 11/12/2014 11:16 AM EST 11/12/2014 2:11 PM EST us Joseph Lake MD CHEMISTRY ORDERABLES Final Result [facility] [address] [place] [address] * FL IVP [employer]ATOR (12/18/2004 11:20 AM EST) Anatomical Region Laterality Modality Other 12/18/2004 11:2 0 AM EST Narrative 12/18/2004 1:18 PM EST HYDRONEPHROSIS IVP- 12/18/04. History- Reported hydronephrosis on outside ultrasound. Discussion- No comparison is available. If outside ultrasound is submitted, comparison can be made and an addendum issued. Preliminary film of the abdomen reveals a nonobstructed bowel gas pattern. Small calcification over the low right hemipelvis is likely a phlebolith. Faint iliac artery calcification within the pelvis is also noted. There is slight left convex curvature of lumbar spine which may be positional. There is moderate lumbar spondylosis. 75 cc Optiray 320 was intravenously administered. There is bilateral, symmetric excretion by 2 minutes. Renal sizes and contours are grossly normal. Pelvicaliceal systems are sharp and the ureters are in normal course and caliber without filling defect. The urinary bladder fills normally and empties well. Impression- Normal IVP. ?? Procedure Note Arian Ramírez - 12/31/2009 HYDRONEPHROSIS IVP- 12/18/04. History- Reported hydronephrosis on outside ultrasound. Discussion- No comparison is available. If outside ultrasound is submitted, comparison can be made and an addendum issued. Preliminary film of the abdomen reveals a nonobstructed bowel gas pattern. Small calcification over the low right hemipelvis is likely a phlebolith. Faint iliac artery calcification within the pelvis is also noted. There is slight left convex curvature of lumbar spine which may be positional. There is moderate lumbar spondylosis. 75 cc Optiray 320 was intravenously administered. There is bilateral, symmetric excretion by 2 minutes. Renal sizes and contours are grossly normal. Pelvicaliceal systems are sharp and the ureters are in normal course and caliber without filling defect. The urinary bladder fills normally and empties well. Impression- Normal IVP. us Joseph Lake MD [facility] Final Result Visit Diagnoses Diagnosis Start Date Laceration Open wound(s) (multiple) of unspecified site(s), without mention of complication 07/17/2012 Unspecified essential hypertension 11/12/2014 Other and unspecified hyperlipidemia 11/12/2014 Wheezing 11/12/2014 Otitis media with rupture of tympanic membrane, bilateral 07/29/2015 Hearing loss, bilateral 07/29/2015 Tinnitus, bilateral Unspecified tinnitus 07/29/2015 Recurrent acute otitis media of both ears, unspecified otitis media type 12/22/2015 Dizziness Dizziness and giddiness 12/22/2015 Hyponatremia Hyposmolality and/or hyponatremia 12/22/2015 Hyponatremia Hyposmolality and/or hyponatremia 2015 Screening for colon cancer Special screening for malignant neoplasms, colon 2015 Hyponatremia Hyposmolality and/or hyponatremia 2015 Essential hypertension Unspecified essential hypertension 2015 Tobacco use Tobacco use disorder 2015 Thyroid lesion 2015 ASHD (arteriosclerotic heart disease) Coronary atherosclerosis of unspecified type of vessel, southern ute or graft 2015 Need for pneumococcal vaccination Need for prophylactic vaccination against streptococcus pneumoniae (pneumococcus) 2015 Non morbid obesity due to excess calories 2015 Cough due to STEPHANIE inhibitor Cough 2015 IFG (impaired fasting glucose) Impaired fasting glucose 2015 Other recurrent acute nonsuppurative otitis media of both ears 2015 Dizziness Dizziness and giddiness 2015 Pulmonary nodule, right Solitary pulmonary nodule 2015 Lung nodule Solitary pulmonary nodule 12/27/2015 Lung nodules Other nonspecific abnormal finding of lung field 12/27/2015 Essential hypertension Unspecified essential hypertension 12/31/2015 Anxiety disorder, unspecified anxiety disorder type 01/13/2016 Lung nodule Solitary pulmonary nodule 01/14/2016 Thyroid lesion 01/14/2016 Lung nodules Other nonspecific abnormal finding of lung field 01/16/2016 Hyponatremia Hyposmolality and/or hyponatremia 01/17/2016 Recurrent acute serous otitis media of both ears Acute serous otitis media 01/17/2016 Non morbid obesity due to excess calories 01/17/2016 Tobacco use Tobacco use disorder 01/17/2016 Pulmonary nodule, right Solitary pulmonary nodule 01/17/2016 Abnormal auditory perception, bilateral 01/20/2016 Other infective chronic otitis externa of left ear 01/20/2016 Bilateral sensorineural hearing loss Sensorineural hearing loss, bilateral 01/20/2016 Tinnitus, bilateral Unspecified tinnitus 01/20/2016 Eustachian tube dysfunction, bilateral 01/20/2016 Bilateral sensorineural hearing loss Sensorineural hearing loss, bilateral 03/18/2016 Tinnitus, bilateral Unspecified tinnitus 03/18/2016 Essential hypertension Unspecified essential hypertension 04/02/2016 Peripheral edema Edema 04/02/2016 Constipation, chronic Unspecified constipation 04/02/2016 Former smoker Personal history of tobacco use, presenting hazards to health 04/02/2016 Uses hearing aid 04/02/2016 Constipation, chronic Unspecified constipation 04/24/2016 Essential hypertension Unspecified essential hypertension 07/01/2016 Acute otitis externa of right ear, unspecified type 07/09/2016 Pulmonary nodule, right Solitary pulmonary nodule 07/20/2016 Former smoker Personal history of tobacco use, presenting hazards to health 07/22/2016 Pulmonary nodule, right Solitary pulmonary nodule 07/22/2016 Essential hypertension Unspecified essential hypertension 07/22/2016 Hyponatremia Hyposmolality and/or hyponatremia 07/22/2016 Non morbid obesity due to excess calories 07/22/2016 Essential hypertension Unspecified essential hypertension 10/01/2016 Anxiety disorder, unspecified type 12/01/2016 Encounter for long-term current use of medication 12/01/2016 Bilateral lower extremity edema Edema 12/01/2016 Pulmonary nodule, right Solitary pulmonary nodule 12/01/2016 Essential hypertension Unspecified essential hypertension 12/01/2016 Anxiety disorder, unspecified type 12/01/2016 Former smoker Personal history of tobacco use, presenting hazards to health 12/01/2016 Screening for AAA (abdominal aortic aneurysm) Screening for other and unspecified cardiovascular conditions 12/01/2016 Encounter for long-term current use of medication 12/01/2016 Change in bowel movement Other symptoms involving digestive system 12/01/2016 Essential hypertension Unspecified essential hypertension 12/16/2016 Screening for AAA (abdominal aortic aneurysm) Screening for other and unspecified cardiovascular conditions 12/30/2016 Pulmonary nodule, right Solitary pulmonary nodule 12/30/2016 Bilateral lower extremity edema Edema 01/01/2017 Hyponatremia Hyposmolality and/or hyponatremia 01/06/2017 Pulmonary nodule, right Solitary pulmonary nodule 01/06/2017 Former smoker Personal history of tobacco use, presenting hazards to health 01/06/2017 Shoulder mass Other symptoms referable to shoulder joint 01/06/2017 Essential hypertension Unspecified essential hypertension 01/26/2017 Essential hypertension Unspecified essential hypertension 03/29/2017 Essential hypertension Unspecified essential hypertension 04/21/2017 Mass of joint of right shoulder 05/06/2017 Herpes zoster without complication 07/26/2017 Anxiety disorder, unspecified type 07/26/2017 Acute bacterial conjunctivitis of both eyes 07/26/2017 Acute bacterial conjunctivitis of both eyes 10/28/2017 Essential hypertension Unspecified essential hypertension 12/15/2017 Essential hypertension Unspecified essential hypertension 05/06/2018 Essential hypertension Unspecified essential hypertension 06/06/2018 Essential hypertension Unspecified essential hypertension 06/08/2018 Essential hypertension Unspecified essential hypertension 02/08/2019 Essential hypertension Unspecified essential hypertension 06/19/2019 Paronychia of great toe of right foot Onychia and paronychia of toe 06/19/2019 Pulmonary nodule, right Solitary pulmonary nodule 06/19/2019 Mass of skin of right shoulder 06/19/2019 Lipoma of back Lipoma of other specified sites 06/19/2019 Need for pneumococcal vaccination Need for prophylactic vaccination against streptococcus pneumoniae (pneumococcus) 06/19/2019 Situational anxiety Other anxiety states 06/19/2019 Anxiety disorder, unspecified type 06/19/2019 Primary osteoarthritis of both knees Primary localized osteoarthrosis, lower leg 06/19/2019 Contusion of toenail, unspecified laterality, initial encounter 07/13/2019 Pain in toes of both feet 07/13/2019 Paronychia of great toe of right foot Onychia and paronychia of toe 07/13/2019 Lipoma of back Lipoma of other specified sites 07/27/2019 Medicare annual wellness visit, subsequent Routine general medical examination at a health care facility 08/31/2019 Flu vaccine need Need for prophylactic vaccination and inoculation against influenza 08/31/2019 Essential hypertension Unspecified essential hypertension 08/31/2019 Pulmonary nodule, right Solitary pulmonary nodule 08/31/2019 Encounter for long-term current use of medication 08/31/2019 Impacted cerumen of right ear Impacted cerumen 08/31/2019 BPH without urinary obstruction Hypertrophy of prostate without urinary obstruction and other lower urinary tract symptoms (LUTS) 08/31/2019 Uses hearing aid 08/31/2019 Encounter for long-term current use of medication 10/03/2019 BPH without urinary obstruction Hypertrophy of prostate without urinary obstruction and other lower urinary tract symptoms (LUTS) 10/03/2019 Obesity, Class I, BMI 30-34.9 Obesity, unspecified 10/03/2019 Peripheral polyneuropathy Unspecified hereditary and idiopathic peripheral neuropathy 10/03/2019 Hypercholesteremia Pure hypercholesterolemia 10/03/2019 Encounter for long-term current use of medication 10/03/2019 Anxiety disorder, unspecified type 10/03/2019 Essential hypertension Unspecified essential hypertension 10/03/2019 Essential hypertension Unspecified essential hypertension 10/11/2019 Essential hypertension Unspecified essential hypertension 2019 Peripheral polyneuropathy Unspecified hereditary and idiopathic peripheral neuropathy 2019 Pulmonary nodule, right Solitary pulmonary nodule 2019 Obesity, Class I, BMI 30-34.9 Obesity, unspecified 2019 Other specified anxiety disorders 2019 IFG (impaired fasting glucose) Impaired fasting glucose 2019 Dyslipidemia Other and unspecified hyperlipidemia 2019 Hypercholesteremia Pure hypercholesterolemia 12/27/2019 Hypercholesteremia Pure hypercholesterolemia 01/16/2020 Gross hematuria 01/23/2020 BPH without urinary obstruction Hypertrophy of prostate without urinary obstruction and other lower urinary tract symptoms (LUTS) 01/23/2020 Essential hypertension Unspecified essential hypertension 05/09/2020 Hypercholesteremia Pure hypercholesterolemia 05/09/2020 Peripheral polyneuropathy Unspecified hereditary and idiopathic peripheral neuropathy 05/09/2020 Essential hypertension Unspecified essential hypertension 07/18/2020 BPH without urinary obstruction Hypertrophy of prostate without urinary obstruction and other lower urinary tract symptoms (LUTS) 07/18/2020 Medicare annual wellness visit, subsequent Routine general medical examination at a health care facility 08/13/2020 Essential hypertension Unspecified essential hypertension 08/13/2020 Hypercholesteremia Pure hypercholesterolemia 08/13/2020 Flu vaccine need Need for prophylactic vaccination and inoculation against influenza 08/13/2020 Anxiety disorder, unspecified type 08/13/2020 Nodule of right lung Solitary pulmonary nodule 08/13/2020 Uses hearing aid 08/13/2020 Obesity, Class I, BMI 30-34.9 Obesity, unspecified 08/13/2020 BPH without urinary obstruction Hypertrophy of prostate without urinary obstruction and other lower urinary tract symptoms (LUTS) 08/19/2020 Peripheral polyneuropathy Unspecified hereditary and idiopathic peripheral neuropathy 09/07/2020 Peripheral polyneuropathy Unspecified hereditary and idiopathic peripheral neuropathy 09/07/2020 Essential hypertension Unspecified essential hypertension 11/05/2020 Hypercholesteremia Pure hypercholesterolemia 11/05/2020 Essential hypertension Unspecified essential hypertension 11/06/2020 Essential hypertension Unspecified essential hypertension 11/06/2020 Peripheral polyneuropathy Unspecified hereditary and idiopathic peripheral neuropathy 12/06/2020 BPH without urinary obstruction Hypertrophy of prostate without urinary obstruction and other lower urinary tract symptoms (LUTS) 12/20/2020 Hypercholesteremia Pure hypercholesterolemia 01/22/2021 Essential hypertension Unspecified essential hypertension 02/05/2021 Peripheral polyneuropathy Unspecified hereditary and idiopathic peripheral neuropathy 03/07/2021 Peripheral polyneuropathy Unspecified hereditary and idiopathic peripheral neuropathy 04/10/2021 Medicare annual wellness visit, subsequent Routine general medical examination at a health care facility 04/17/2021 Peripheral polyneuropathy Unspecified hereditary and idiopathic peripheral neuropathy 04/17/2021 Essential hypertension Unspecified essential hypertension 04/17/2021 Pulmonary nodule, right Solitary pulmonary nodule 04/17/2021 Uses hearing aid 04/17/2021 Hyperlipidemia, unspecified hyperlipidemia type 04/17/2021 Anxiety disorder, unspecified type 04/17/2021 BPH without urinary obstruction Hypertrophy of prostate without urinary obstruction and other lower urinary tract symptoms (LUTS) 05/07/2021 Essential hypertension Unspecified essential hypertension 05/23/2021 Peripheral polyneuropathy Unspecified hereditary and idiopathic peripheral neuropathy 06/04/2021 Essential hypertension Unspecified essential hypertension 06/04/2021 Essential hypertension Unspecified essential hypertension 07/17/2021 Peripheral polyneuropathy Unspecified hereditary and idiopathic peripheral neuropathy 09/01/2021 Anxiety disorder, unspecified type 09/12/2021 Peripheral polyneuropathy Unspecified hereditary and idiopathic peripheral neuropathy 09/12/2021 Essential hypertension Unspecified essential hypertension 09/12/2021 Hyperlipidemia, unspecified hyperlipidemia type 09/12/2021 BPH without urinary obstruction Hypertrophy of prostate without urinary obstruction and other lower urinary tract symptoms (LUTS) 09/12/2021 Flu vaccine need Need for prophylactic vaccination and inoculation against influenza 09/12/2021 Pulmonary nodule, right Solitary pulmonary nodule 09/12/2021 Obesity, Class I, BMI 30-34.9 Obesity, unspecified 09/12/2021 Statin intolerance Other drug allergy 09/12/2021 Seasonal allergic rhinitis, unspecified trigger 09/12/2021 BPH without urinary obstruction Hypertrophy of prostate without urinary obstruction and other lower urinary tract symptoms (LUTS) 09/24/2021 Need for COVID-19 vaccine 09/29/2021 Seasonal allergic rhinitis, unspecified trigger 02/03/2022 BPH without urinary obstruction Hypertrophy of prostate without urinary obstruction and other lower urinary tract symptoms (LUTS) 02/24/2022 Essential hypertension Unspecified essential hypertension 02/26/2022 Essential hypertension Unspecified essential hypertension 03/09/2022 Essential hypertension Unspecified essential hypertension 04/03/2022 Peripheral polyneuropathy Unspecified hereditary and idiopathic peripheral neuropathy 04/06/2022 Seasonal allergic rhinitis, unspecified trigger 04/09/2022 Gross hematuria 04/13/2022 BPH without urinary obstruction Hypertrophy of prostate without urinary obstruction and other lower urinary tract symptoms (LUTS) 04/13/2022 Essential hypertension Unspecified essential hypertension 04/13/2022 Peripheral polyneuropathy Unspecified hereditary and idiopathic peripheral neuropathy 04/13/2022 Anxiety disorder, unspecified type 04/13/2022 Bilateral hearing loss, unspecified hearing loss type 04/13/2022 Right flank pain Abdominal pain, unspecified site 04/13/2022 Gross hematuria 04/14/2022 Right flank pain Abdominal pain, unspecified site 04/14/2022 Essential hypertension Unspecified essential hypertension 06/08/2022 Peripheral polyneuropathy Unspecified hereditary and idiopathic peripheral neuropathy 08/10/2022 Seasonal allergic rhinitis, unspecified trigger 08/28/2022 Medicare annual wellness visit, subsequent Routine general medical examination at a health care facility 09/29/2022 Flu vaccine need Need for prophylactic vaccination and inoculation against influenza 09/29/2022 Hearing loss, unspecified hearing loss type, unspecified laterality 09/29/2022 Pulmonary nodule, right Solitary pulmonary nodule 09/29/2022 Anxiety disorder, unspecified type 09/29/2022 Obesity, Class I, BMI 30-34.9 Obesity, unspecified 09/29/2022 Peripheral polyneuropathy Unspecified hereditary and idiopathic peripheral neuropathy 09/29/2022 Encounter for long-term current use of medication 09/29/2022 Essential hypertension Unspecified essential hypertension 09/29/2022 BPH without urinary obstruction Hypertrophy of prostate without urinary obstruction and other lower urinary tract symptoms (LUTS) 09/29/2022 Wears hearing aid in both ears 09/29/2022 BPH without urinary obstruction Hypertrophy of prostate without urinary obstruction and other lower urinary tract symptoms (LUTS) 10/06/2022 Urine frequency Urinary frequency 10/31/2022 Urinary tract infection with hematuria, site unspecified 10/31/2022 Gross hematuria 11/05/2022 BPH without urinary obstruction Hypertrophy of prostate without urinary obstruction and other lower urinary tract symptoms (LUTS) 11/05/2022 Essential hypertension Unspecified essential hypertension 11/05/2022 Essential hypertension Unspecified essential hypertension 11/17/2022 Urinary frequency 12/03/2022 Retention of urine, unspecified 12/03/2022 Enlarged prostate with urinary obstruction Hypertrophy of prostate with urinary obstruction and other lower urinary tract symptoms (LUTS) 12/03/2022 Gross hematuria 12/03/2022 IFG (impaired fasting glucose) Impaired fasting glucose 12/16/2022 Peripheral polyneuropathy Unspecified hereditary and idiopathic peripheral neuropathy 12/16/2022 BPH without urinary obstruction Hypertrophy of prostate without urinary obstruction and other lower urinary tract symptoms (LUTS) 12/16/2022 Essential hypertension Unspecified essential hypertension 12/16/2022 Leg weakness, bilateral Other musculoskeletal symptoms referable to limbs 12/16/2022 Nodule of right lung Solitary pulmonary nodule 12/16/2022 Anxiety disorder, unspecified type 12/16/2022 Uses hearing aid 12/16/2022 Retention of urine, unspecified 12/30/2022 Frequency of micturition Urinary frequency 12/30/2022 Gross hematuria 12/30/2022 Essential hypertension Unspecified essential hypertension 01/04/2023 Peripheral polyneuropathy Unspecified hereditary and idiopathic peripheral neuropathy 01/08/2023 Leg weakness, bilateral Other musculoskeletal symptoms referable to limbs 01/08/2023 Problem with Riggs catheter, initial encounter ([facility]) 02/11/2023 Acute cystitis with hematuria Acute cystitis 02/11/2023 Essential hypertension Unspecified essential hypertension 02/15/2023 Seasonal allergic rhinitis, unspecified trigger 02/17/2023 Urinary tract infection associated with indwelling urethral catheter, subsequent encounter 02/25/2023 Peripheral polyneuropathy Unspecified hereditary and idiopathic peripheral neuropathy 02/25/2023 Lumbar degenerative disc disease Degeneration of lumbar or lumbosacral intervertebral disc 02/25/2023 Bradycardia Other specified cardiac dysrhythmias 02/25/2023 Anxiety disorder, unspecified type 02/25/2023 Essential hypertension Unspecified essential hypertension 02/25/2023 Enlarged prostate with urinary retention Hypertrophy of prostate with urinary obstruction and other lower urinary tract symptoms (LUTS) 02/25/2023 Wears hearing aid in both ears 02/25/2023 Peripheral polyneuropathy Unspecified hereditary and idiopathic peripheral neuropathy 03/26/2023 Encounter for long-term (current) use of medications Encounter for long-term (current) use of other medications 03/31/2023 Peripheral polyneuropathy Unspecified hereditary and idiopathic peripheral neuropathy 03/31/2023 Lumbar degenerative disc disease Degeneration of lumbar or lumbosacral intervertebral disc 03/31/2023 Essential hypertension Unspecified essential hypertension 03/31/2023 Pulmonary nodule, right Solitary pulmonary nodule 03/31/2023 Obesity, Class I, BMI 30-34.9 Obesity, unspecified 03/31/2023 Heart murmur Undiagnosed cardiac murmurs 03/31/2023 Enlarged prostate with urinary retention Hypertrophy of prostate with urinary obstruction and other lower urinary tract symptoms (LUTS) 03/31/2023 Bilateral hearing loss, unspecified hearing loss type 03/31/2023 Primary osteoarthritis of both knees Primary localized osteoarthrosis, lower leg 03/31/2023 Situational anxiety Other anxiety states 03/31/2023 Encounter for long-term (current) use of medications Encounter for long-term (current) use of other medications 05/03/2023 Essential hypertension Unspecified essential hypertension 05/19/2023 Anxiety disorder, unspecified type 05/26/2023 Seasonal allergic rhinitis, unspecified trigger 07/20/2023 Flu vaccine need Need for prophylactic vaccination and inoculation against influenza 07/27/2023 Essential hypertension Unspecified essential hypertension 07/27/2023 History of falling Personal history of fall 08/26/2023 Pain of left lower extremity 08/26/2023 Cellulitis of leg, left Cellulitis and abscess of leg, except foot 08/26/2023 History of falling Personal history of fall 08/26/2023 Pain of left lower extremity 08/26/2023 Obesity, Class I, BMI 30-34.9 Obesity, unspecified 08/26/2023 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 system 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 Encounter for long-term (current) use of anticoagulants 08/26/2023 Peripheral polyneuropathy Unspecified hereditary and idiopathic peripheral neuropathy 08/30/2023 Medicare annual wellness visit, subsequent Routine general medical examination at a health care facility 10/07/2023 Cellulitis of leg, left Cellulitis and abscess of leg, except foot 10/07/2023 Peripheral polyneuropathy Unspecified hereditary and idiopathic peripheral neuropathy 10/07/2023 Anxiety disorder, unspecified type 10/07/2023 Type 2 diabetes mellitus without complication, without long-term current use of insulin ([facility]) 10/07/2023 Atrial fibrillation, unspecified type ([facility]) 10/07/2023 Pulmonary nodule, right Solitary pulmonary nodule 10/07/2023 Lumbar degenerative disc disease Degeneration of lumbar or lumbosacral intervertebral disc 10/07/2023 Essential hypertension Unspecified essential hypertension 10/07/2023 Type 2 diabetes mellitus without complication, without long-term current use of insulin ([facility]) 10/13/2023 Essential hypertension Unspecified essential hypertension 11/16/2023 Anxiety disorder, unspecified type 11/29/2023 Seasonal allergic rhinitis, unspecified trigger 01/12/2024 Peripheral polyneuropathy Unspecified hereditary and idiopathic peripheral neuropathy 02/28/2024 Essential hypertension Unspecified essential hypertension 03/22/2024 Essential hypertension Unspecified essential hypertension 04/05/2024 Peripheral polyneuropathy Unspecified hereditary and idiopathic peripheral neuropathy 04/05/2024 Encounter for long-term current use of medication 04/05/2024 Leg skin lesion, left Unspecified disorder of skin and subcutaneous tissue 04/05/2024 Lumbar degenerative disc disease Degeneration of lumbar or lumbosacral intervertebral disc 04/05/2024 Anxiety disorder, unspecified type 04/05/2024 Peripheral polyneuropathy Unspecified hereditary and idiopathic peripheral neuropathy 04/18/2024 Retention of urine, unspecified 06/14/2024 Flaccid neuropathic bladder, not elsewhere classified 06/14/2024 Hyponatremia Hyposmolality and/or hyponatremia 12/22/2015 Recurrent acute otitis media of both ears Unspecified otitis media 12/22/2015 Dizziness Dizziness and giddiness 12/22/2015 Non morbid obesity due to excess calories 12/22/2015 Elevated blood sugar Other abnormal glucose 12/22/2015 Essential hypertension Unspecified essential hypertension 12/22/2015 Tobacco use Tobacco use disorder 12/22/2015 Goals Goal Patient Goal Type Associated Problems [...] Tobacco Free Lifestyle No Kim Solis RMA 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
--- OUTSIDE RECORDS SUMMARY | 2024-09-12 12:42 | XMS_ITS | Encounter Summary ---
Author Organization [facility] [place] [address] Care Team Providers Care Cane Loader Name Role Phone Dora Hernandez MD Primary Care Provider [phone] Reason for Visit * Reason Comments Fall reports slipped off of tractor and skinned left leg- pt has several hard knots on left calf- hurts to press on it over 10 days Encounter Details Date Type Department Care Team (Latest Contact Info) Description 08/26/2023 11:20 AM EDT Office Visit [facility] [address] [place] [address] Dora Hernandez MD [address] [facility] [place] [address] Cellulitis of leg, left (Primary Dx); History of falling; Pain of left lower extremity; Obesity, Class I, BMI 30-34.9; Current use of psychiatric secretary anticoagulation Social History Tobacco Use Types Packs/Day Years Used Date Smoking Tobacco: Former Cigarettes 2 50 0 01/02/1966 - 01/03/2016 Pipe Smokeless Tobacco: Never Alcohol Use Standard Drinks/Week Comments Yes 0 (1 standard drink = 0.6 oz pur e alcohol) beer and wine PHQ-2 Answer Date Recorded PHQ-2 Total Score 0 09/29/2022 Sex and Gender Information Value Date Recorded Sex Assigned at Not on file Legal Sex Male 2:45 AM EDT Gender Identity Not on file Sexual Orientation Not on file documented as of this encounter Last Filed Vital Signs Vital Sign Reading Time Taken Comments Blood Pressure 140/70 08/26/2023 11:22 AM EDT Pulse - - Temperature 36.3 ??C (97.3 ??F) 08/26/2023 11:22 AM E DT Respiratory Rate - - Oxygen Saturation - - Inhaled Oxygen Concentration - - Weight 110.2 kg (243 lb) 08/26/2023 11:22 AM EDT Height 190.5 cm (6' 3 ) 08/26/2023 11:22 AM EDT Body Mass Index 30.37 08/26/2023 11:22 AM EDT documented in this encounter Functional Status * Is the person deaf or does he/she have serious difficulty hearing? Answer Date of Assessment Author Yes 09/29/2022 10:06 AM Blessing Etienne CCMA * Is the person blind or does he/she have serious difficulty seeing even when wearing glasses? Answer Date of Assessment Author No 09/29/2022 10:06 AM Blessing Etienne CCMA * Does this person have serious difficulty walking or climbing stairs? Answer Date of Assessment Author No 09/29/2022 10:06 AM Blessing Etienne CCMA * Does this person have difficulty dressing or bathing? Answer Date of Assessment Author No 09/29/2022 10:06 AM Blessing Etienne CCMA * Because of a physical, mental or emotional condition, does this person have difficulty doing errands alone such as visiting a doctor's office or shopping? Answer Date of Assessment Author No 09/29/2022 10:06 AM Blessing Etienne CCMA documented as of this encounter Mental Status * Because of a physical, mental or emotional condition, does this person have serious difficulty concentrating, remembering or making decisions? Answer Entry Date Author No 09/29/2022 10:06 AM Blessing Etienne CCMA documented in this encounter Ordered Prescriptions Prescription Sig Dispense Quantity Refills Last Filled Start Date End Date ciprofloxacin HCl (CIPRO) 500 mg Oral TabletIndications: Cellulitis of leg, left Take 1 Tablet by mouth 2 times daily for 7 days. 14 Tablet 08/26/2023 09/02/2023 documented in this encounter Progress Notes * Dora Hernandez MD - 08/26/2023 11:20 AM EDT Assessment Diagnoses and all orders for this visit: Cellulitis of leg, left - ciprofloxacin HCl (CIPRO) 500 mg Oral Tablet; Take 1 Tablet by mouth 2 times daily for 7 days. Dispense: 14 Tablet; Refill: 0 History of falling - XR TIBIA FIBULA LEFT AP AND LATERAL; Future Pain of left lower extremity - XR TIBIA FIBULA LEFT AP AND LATERAL; Future Tylenol prn. Avoid NSAID as on AC. Ortho if acute changes on x-ray. Obesity, Class I, BMI 30-34.9 Weight loss discussed. Pt states this is intentional. No beer in 3 weeks. Current use of psychiatric secretary anticoagulation for A fib On xarelto. Fall precautions d/w pt. Use cane at all times. Progress Note: Vitals: 08/26/23 1122 BP: 140/70 BP Location: Left arm Patient Position: Sitting Temp: 97.3 ??F (36.3 ??C) TempSrc: Temporal Weight: 243 lb (110.2 kg) Height: 6' 3 (1.905 m) SUBJECTIVE: Chief Complaint Patient presents with ??? Fall reports slipped off of tractor and skinned left leg- pt has several hard knots on left calf- hurts to press on it over 10 days HPI: As above. Slipped off tractor 3 weeks ago. Swelling and bruise have subsided but left leg is still sore. Pt denies difficulty with walking or weight bearing. Rash and redness on L leg. Pt sees Cardiology. Started on xarelto for A fib. Denies s/e from rx. Review of Systems OBJECTIVE: Physical Exam Constitutional: Appearance: He is not ill-appearing or diaphoretic. Musculoskeletal: General: Tenderness (lateral asp of left lower leg, distal) and deformity (Pt states L foot deformity has been present since tractor injury many years ago.) present. Comments: Ambulatory with use of cane - guarding d/t pain Skin: Findings: Erythema (L lower leg. warm to touch.) and rash (medial asp of L lower leg) present. Neurological: General: No focal deficit present. Mental Status: He is alert and oriented to person, place, and time. Psychiatric: Mood and Affect: Mood normal. Behavior: Behavior normal. documented in this encounter Plan of Treatment Not on file documented as of this encounter Goals Goal Patient Goal Type Associated Problems Recent Progress Patient-Stated? Author Blood Pressure < 140/90 Blood Pressure 110/78(2023 11:26 AM EDT) No Ember Canela RN Maintain a healthy diet, exercise regularly and maintain an ideal body weight General No Kim Solis RMA Maintain a healthy diet, exercise regularly and maintain an ideal body weight General No Aurelia Saldana RMA Stay Tobacco Free Lifestyle No Kim Solis RMA documented as of this encounter Results * XR TIBIA FIBULA LEFT AP AND [...] ??08/26/2023 12:32 PM CLINICAL HISTORY: ??Z91.81-History of [id number] M79.605-Pain in left [id number] COMPARISON: ??None. PROCEDURE COMMENTS: Orthogonal views of [...] 08/26/2023 12:32 PM CLINICAL HISTORY: Z91.81-History of [id number] M79.605-Pain in left [id number] COMPARISON: None. PROCEDURE COMMENTS: Orthogonal views of [...] IMG DIAGNOSTIC IMAGING ORDERABL ES Final Result documented in this encounter Visit Diagnoses Diagnosis Cellulitis of leg, left- Primary Cellulitis and abscess of leg, except foot History of falling Personal history of fall Pain of left lower extremity Obesity, Class I, BMI 30-34.9 Obesity, unspecified Current use of psychiatric secretary anticoagulation Encounter for long-term (current) use of anticoagulants History of falling Personal history of fall Pain of left lower extremity documented in this encounter Historical Medications * This list may reflect changes made after this encounter. Medication Sig Dispense Quantity Refills Last Filled Start D ate End Date XARELTO 20 mg Oral Tablet 08/09/2023 added in this encounter Additional Health Concerns Assessment Noted Time A fall risk assessment has been complete d for the patient 09/29/2022 10:09 AM EST documented as of this encounter Care Teams Cane Loader Relationship Specialty Start Date End Date Dora Hernandez MD [address] [place] [address] PCP - General Family Medicine 12/24/15 documented as of this encounter
--- OUTSIDE RECORDS SUMMARY | 2024-09-12 12:42 | XMS_ITS | Encounter Summary ---
Author Organization [place] [address] Care Team Providers Care Timber Deadener Name Role Phone Dora Hernandez MD Primary Care Provider [phone] Reason for Visit * Reason Onset Date Comments Central Patient Navigator Outreach 04/04/2024 AWV Questionnaire Encounter Details Date Type Department Care Team (Latest Contact Info) Description 04/04/2024 Patient Outreach [facility] [address] [place], [place] [id number] Dora Hernandez MD [address] [facility] [place] [place] [address] Central Patient Navigator Outreach (AWV Questionnaire /) Social History Tobacco Use Types Packs/Day Years [...] No 10/07/2023 9:52 AM EST [facility]evyn Partida, [facility] * Is the person blind or does he/she have serious difficulty seeing even when wearing glasses? Answer Date of Assessment Author No 10/07/2023 9:52 AM Kevyn Etienne michaelsondraVARGHESE Longoria * Does this person have serious difficulty walking or climbing stairs? Answer Date of Assessment Author No 10/07/2023 9:52 AM Kevyn Etienne MAE NixA * Does this person have difficulty dressing or bathing? Answer Date of Assessment Author No 10/07/2023 9:52 AM Kevyn EtienneVARGHESE Longoria * Because of a physical, mental or emotional condition, does this person have difficulty doing errands alone such as visiting a doctor's office or shopping? Answer Date of Assessment Author No 10/07/2023 9:52 AM Kevyn Etienne VARGHESE Nix documented as of this encounter Mental Status * Because of a physical, mental or emotional condition, does this person have serious difficulty concentrating, remembering or making decisions? Answer Entry Date Author No 10/07/2023 9:52 AM CODY Partida Kevyn michaelsondraVARGHESE Longoria documented in this encounter Progress Notes * Josi Chua - 04/04/2024 9:19 AM EDT Patient Outreach: Pre-Visit Questionnaires Attempt Count: inbound Care Gaps Addressed tower air traffic control specialist: Medicare Questionnaire Outcome: Patient/Parent/Guardian declined per spouse- pt is hard of hearing. * Hilda Preston - 04/04/2024 9:02 AM EDT Patient Outreach: Pre-Visit Questionnaires Attempt Count: 1st Care Gaps Addressed tower air traffic control specialist: Medicare Questionnaire Outcome: Left message to return call at documented in this encounter Plan of Treatment [...] documented as of this encounter Care Teams Timber Deadener Relationship Specialty Start Date End Date Dora Hernandez MD [address] [place] [address] PCP - General Family Medicine 12/24/15 documented as of this encounter
--- OUTSIDE RECORDS SUMMARY | 2024-09-12 12:42 | XMS_ITS | Encounter Summary ---
Author Organization [place] [address] Care Team Providers Care Partition Assembly Machine Operator Name Role Phone Dora Hernandez MD Primary Care Provider [phone] Encounter Details Date Type Department Care Team (Late st Contact Info) Description 02/02/2024 Orders Only [facility] [address] [place] [address] Dora Hernandez MD [address] [place] [address] Social History Tobacco Use Types Packs/Day Years [...] PartidaKevyn CCMA * Does this person have difficulty dressing or bathing? Answer Date of Assessment Author No 10/07/2023 9:52 AM Kevyn Etienne VARGHESE Velasquez * Because of a physical, mental or emotional condition, does this person have difficulty doing errands alone such as visiting a doctor's office or shopping? Answer Date of Assessment Author No 10/07/2023 9:52 AM CODY Partida Bagley VARGHESE Velasquez documented as of this encounter Mental Status * Because of a physical, mental or emotional condition, does this person have serious difficulty concentrating, remembering or making decisions? Answer Entry Date Author No 10/07/2023 9:52 AM CODY Partida Bagley VARGHESE Velasquez documented in this encounter Progress Notes * Mignon Oswald - 02/02/2024 3:16 PM EDT [facility]wk documented in this encounter Plan of Treatment [...] Solis RMA documented as of this encounter Procedures Procedure Name Priority Date/Time Associated Diagnosis Comments CHOLESTEROL TOTAL Routine 01/11/2024 3:16 PM EDT documented in this encounter Results * CHOLESTEROL TOTAL (01/11/2024 3:16 PM EDT) Blood VENOUS BLOOD / Unknown us Dora Hernandez MD CHEMISTRY ORDERABLES Final Resu lt [facility] documented in this encounter Visit Diagnoses Not on filedocumented in this encounter Additional Health Concerns Assessment Noted Time A fall risk assessment has been complete d for the patient 10/07/2023 9:52 AM EST documented as of this encounter Care Teams Partition Assembly Machine Operator Relationship Specialty Start Date End Date Dora Hernandez MD [address] [facility] [place] [address] PCP - General Family Medicine 12/24/15 documented as of this encounter
--- OUTSIDE RECORDS SUMMARY | 2024-09-12 12:42 | XMS_ITS | Encounter Summary ---
Author Organization [place] [address] Care Team Providers Care Double Back Operator Name Role Phone Dora Hernandez MD Primary Care Provider [phone] Encounter Details Date Type Department Care Team (Latest Contact Info) Description 08/26/2023 12:03 PM EDT - 08/26/2023 11:59 PM EDT Hospital Encounter [facility] [address] [id number] History of falling; Pain of left lower extremity Discharge Disposition: Home or Self Care Social History Tobacco Use Types Packs/Day Years [...] of Assessment Author No 09/29/2022 10:06 AM Blessign Etienne CCMA documented as of this encounter Mental Status * Because of a physical, mental or emotional condition, does this person have serious difficulty concentrating, remembering or making decisions? Answer Entry Date Author No 09/29/2022 10:06 AM Blessing Etienne CCMA documented in this encounter Medications at Time of Discharge diclofenac (VOLTAREN) 1 % Top GelIndications:Prima ry osteoarthritis of both knees Apply 2 g topically 4 times daily. 300 g 2 03/31/2023 PSYLLIUM HUSK, ASPARTAME, ORAL Take by mouth. XARELTO 20 mg Oral Tablet 08/09/2023 ciprofloxacin HCl (CIPRO) 500 mg Oral TabletIndications:Ce llulitis of leg, left Take 1 Tablet by mouth 2 times daily for 7 days. 14 Tablet 08/26/2023 3 ezetimibe (ZETIA) 10 mg Oral Tablet TAKE 1 TABLET BY MOUTH DAILY 90 Tablet 2 02/23/2023 4 fluticasone propionate (FLONASE) 50 mcg/actuation Nasl [place], SuspensionIndication s:Seasonal allergic rhinitis, unspecified trigger USE 2 SPRAYS NASALLY EVERY DAY 48 g 07/21/2023 4 gabapentin (NEURONTIN) 100 mg Oral CapsuleIndications:P eripheral polyneuropathy Take 2 Capsules by mouth 2 times daily. 120 Capsule 4 03/26/2023 3 LORazepam (ATIVAN) 0.5 mg Oral TabletIndications:An xiety disorder, unspecified type Take 1 Tablet by mouth 2 times daily as needed for Anxiety. 30 Tablet 2 05/26/2023 4 documented as of this encounter Discharge Disposition Disposition Code Departure Means Destination Home or Self Care documented in this encounter Plan of Treatment [...] Procedure Name Priority Date/Time Associated Diagnosis Comments XR TIBIA FIBULA LEFT AP AND LATERAL Routine 08/26/2023 12:32 PM EDT History of falling Pain of left lower extremity documented in this encounter Results * XR TIBIA FIBULA [...] ??08/26/2023 12:32 PM CLINICAL HISTORY: ??Z91.81-History of [id number]-CM M79.605-Pain in left rhb-PSL-39-CM COMPARISON: ??None. PROCEDURE COMMENTS: Orthogonal views of [...] 08/26/2023 12:32 PM CLINICAL HISTORY: Z91.81-History of [id number]-CM M79.605-Pain in left plc-DVB-55-CM COMPARISON: None. PROCEDURE COMMENTS: Orthogonal views of [...] ordering clinician. us Dora Hernandez MD IMG DIAGNOSTIC IMAGING ORDERABL ES Final Result documented in this encounter Visit Diagnoses Diagnosis History of falling Personal history of fall Pain of left lower extremity documented in this encounter Additional Health Concerns Assessment Noted Time A fall risk assessment has been complete d for the patient 09/29/2022 10:09 AM EST documented as of this encounter Care Teams Double Back Operator Relationship Specialty Start Date End Date Dora Hernandez MD [address] [place] [address] PCP - General Family Medicine 12/24/15 documented as of this encounter
--- OUTSIDE RECORDS SUMMARY | 2024-09-12 12:42 | XMS_ITS | Encounter Summary ---
Author Organization [place] [address] Care Team Providers Care Plate Glass Polisher Name Role Phone Dora Hernandez MD Primary Care Provider [phone] Reason for Visit * Reason Onset Date Comments Medication Management 04/18/2024 Disp Refil ls Start End gabapentin (NEURONTIN) 100 mg Oral Capsule 120 Capsule 1 02/29/2024 - Sig - Route: Take 2 Capsules by mouth 2 times daily. - Oral Sent to pharmacy as: gabapentin 100 mg capsule (NEURONTIN) E-Prescribing Status: Receipt confirmed by pharmacy ( Other 04/18/2024 Rx for 2 tabs in the AM and 3 tabs in PM Encounter Details Date Type Department Care Team (Late st Contact Info) Description 04/18/2024 Telephone [facility] Leon [address] [place] [address] Dora Hernandez MD [address] [place] [address] Medication Management ( Disp Refills Start End /gabapentin (NEURONTIN) 100 mg Oral Capsule 120 Capsule 1 02/29/2024 - /Sig - Route: Take 2 Capsules by mouth 2 times daily. - Oral /Sent to pharmacy as: gabapentin 100 mg capsule (NEURONTIN) /E-Prescribing Status: Receipt confirmed by pharmacy (); Other (Rx for 2 tabs in the AM and 3 tabs in PM) Social History Tobacco Use Types Packs/Day Years [...] of Assessment Author No 10/07/2023 9:52 AM Keyvn Etienne CCMA * Because of a physical, mental or emotional condition, does this person have difficulty doing errands alone such as visiting a doctor's office or shopping? Answer Date of Assessment Author No 10/07/2023 9:52 AM Kevyn Etienne CCMA documented as of this encounter Mental Status * Because of a physical, mental or emotional condition, does this person have serious difficulty concentrating, remembering or making decisions? Answer Entry Date Author No 10/07/2023 9:52 AM Kevyn Etienne CCMA documented in this encounter Ordered Prescriptions Prescription Sig Dispense Quantity Refills Last Filled Start Date End Date gabapentin (NEURONTIN) 100 mg Oral CapsuleIndications:P eripheral polyneuropathy Take 2 caps in AM and 3 caps PM. Total 5 caps a day. 150 Capsule 5 04/24/2024 documented in this encounter Miscellaneous Notes * Telephone Encounter - Dora Hernandez MD - 04/24/2024 11:37 AM EDT Refill sent to pharmacy. * Telephone Encounter - Josephine Vigil MA - 04/24/2024 9:51 AM EDT Select the most appropriate reason for this telephone message: Patient Returning Call Reason for call: states this Rx is working great for pt 2 tabs in the AM and 3 tabs in PM. please call Rx in to gaming at [facility] [address] [place] [address] [address] [facility] [phone] Information relayed to patient: message sent to office Patient has additional questions: No Further follow-up needed? yes Additional Information: did not pend * Telephone Encounter - Petra Partida CCMA - 04/20/2024 8:54 AM EDT lvmtcb and clarify dose x 2 * Telephone Encounter - Petra Partida CCMA - 04/18/2024 11:41 AM EDT lvm to call back and clarify the dose * Telephone Encounter - Dora Hernandez MD - 04/18/2024 10:54 AM EDT Pls call to clarify: is he doing well on 2 caps in AM and 3 caps QHS or 3 caps AM and 3 caps QHS? Pls update med list so dose will be accurate when he needs refill. Thanks. * Telephone Encounter - Petra Partida CCMA - 04/18/2024 9:44 AM EDT FYI * Telephone Encounter - Jahaira Coffey - 04/18/2024 9:40 AM EDT Select the most appropriate reason for this telephone message: Medication Management/Problem Who is calling? Patient What medication(s) do you have concerns about: Disp Refills Start End gabapentin (NEURONTIN) 100 mg Oral Capsule 120 Capsule 1 02/29/2024 -- Sig - Route: Take 2 Capsules by mouth 2 times daily. - Oral Sent to pharmacy as: gabapentin 100 mg capsule (NEURONTIN) E-Prescribing Status: Receipt confirmed by pharmacy (5/ Prescribing provider: Heydi Hernandez What are your concerns/request: wanted to let you know Im doing fine on this dosage increase / pt said he was supposed to let his PCP know Desired outcome: Other NA Last appointment date: 04/05 Pharmacy: Additional notes: documented in this encounter Plan of Treatment [...] as of this encounter Visit Diagnoses Diagnosis Peripheral polyneuropathy Unspecified hereditary and idiopathic peripheral neuropathy documented in this encounter Discontinued Medications Medication Sig Discontinue Reason Start Date End Da te gabapentin (NEURONTIN) 100 mg Oral CapsuleIndications:Periph eral polyneuropathy Take 2 Capsules by mouth 2 times daily. 02/29/2024 04/24/2024 documented as of this encounter Additional Health Concerns Assessment Noted Time A fall risk assessment has been complete d for the patient 10/07/2023 9:52 AM EST documented as of this encounter Care Teams Plate Glass Polisher Relationship Specialty Start Date End Date Dora Hernandez MD [address] [facility] [place] [id number] PCP - General Family Medicine 12/24/15 documented as of this encounter
--- OUTSIDE RECORDS SUMMARY | 2024-09-12 12:42 | XMS_ITS | Encounter Summary ---
Author Organization [place] [address] Care Team Providers Care Manager Fitness Name Role Phone Dora Hernandez MD Primary Care Provider [phone] Reason for Visit * Reason Comments Medication Refill Encounter Details Date Type Department Care Team (Late st Contact Info) Description 03/22/2024 Refill [facility] [address] [facility] [place] [address] Dora Hernandez MD [address] [place] [address] Medication Refill Social History Tobacco [...] 9:52 AM Kevyn Etienne VARGHESE Velasquez * Does this person have difficulty dressing or bathing? Answer Date of Assessment Author No 10/07/2023 9:52 AM Kevyn Etienne VARGHESE Velasquez * Because of a physical, mental or emotional condition, does this person have difficulty doing errands alone such as visiting a doctor's office or shopping? Answer Date of Assessment Author No 10/07/2023 9:52 AM Kevyn Etienne VARGHESE Velasquez documented as of this encounter Mental Status * Because of a physical, mental or emotional condition, does this person have serious difficulty concentrating, remembering or making decisions? Answer Entry Date Author No 10/07/2023 9:52 AM CODY PartidaKevyn CCMA documented in this encounter Ordered Prescriptions Prescription Sig Dispense Quantity Refills Last Filled Start Date End Date metoprolol succinate ER (TOPROL-XL) 100 mg Oral Tablet Sustained Release 24 hrIndications:Esse ntial hypertension TAKE 1 TABLET EVERY DAY 90 Tablet 2 03/23/2024 04/05/2024 documented in this encounter Miscellaneous Notes * Telephone Encounter - Chel Duque CPhT - 03/23/2024 3:39 PM EDT metoprolol - Medication Refill Protocol passed. Jesse Action: Approved 90 day supply with sufficient refills to noted follow-up date by provider or protocol if no follow-up date noted, not to exceed 90 days past that date. LV 10/07/2023 FV 04/05/2024 documented in this encounter Plan of Treatment Not on file documented as of this encounter Goals Goal Patient Goal Type Associated Problems Recent Progress Patient-Stated? Author Blood Pressure < 140/90 Blood Pressure 110/78(2023 11:26 AM EDT) No Ember Canela, RN Maintain a healthy diet, exercise regularly and maintain an ideal body weight General No Kim Solis, RMA Maintain a healthy diet, exercise regularly and maintain an ideal body weight General No Aurelia Saldana, RMMalcolm Stay Tobacco Free Lifestyle No Kim Solis RMA documented as of this encounter Visit Diagnoses Diagnosis Essential hypertension Unspecified essential hypertension documented in this encounter Discontinued Medications Medication Sig Discontinue Reason Start Date End Da te metoprolol succinate ER (TOPROL-XL) 100 mg Oral Tablet Sustained Release 24 hrIndications:Essential hypertension Take 1 Tablet by mouth daily. 10/07/2023 03/23/2024 documented as of this encounter Additional Health Concerns Assessment Noted Time A fall risk assessment has been complete d for the patient 10/07/2023 9:52 AM EST documented as of this encounter Care Teams Manager Fitness Relationship Specialty Start Date End Date Dora Hernandez MD [address] [facility] [id number] PCP - General Family Medicine 12/24/15 documented as of this encounter
--- OUTSIDE RECORDS SUMMARY | 2024-09-12 12:42 | XMS_ITS | Encounter Summary ---
Author Organization [place] [address] Care Team Providers Care Equipment Monitor Phototypesetting Name Role Phone Dora Hernandez MD Primary Care Provider [phone] Reason for Referral * Consultation (Routine) - Authorization Not Needed Specialty Diagnoses / Procedures Referred By Contac t Referred To Contact Diagnoses Leg skin lesion, left Procedures AL OFFICE/OP CONSLTJ NEW/EST PT MOD MDM 40 MINUTES Dora Hernandez MD [address] [place] [address] Phone: tel: fax: Toy De MD [address] [facility] [address] Phone: tel: fax: Referral ID Status Reason Start Date Expiration Date Visits Requested Visits Authorized [id number] Authorization Not Needed Specialty Services Required 04/05/2025 99 99 Question Answer Provider Options First Available Is this an Oncology Provider request? No Reason for Visit * Reason Comments Controlled Substance Monitoring Encounter Details Date Type Department Care Team (Latest Contact Info) Description 04/05/2024 11:20 AM EDT Office Visit ANA Gloria Carolyn OBRIEN [address] [place] [address] Dora Hernandez MD [address] [place] [address] Peripheral polyneuropathy (Primary Dx); Essential hypertension; Encounter for long-term current use of medication; Leg skin lesion, left; Lumbar degenerative disc disease; Anxiety disorder, unspecified type Social History Tobacco Use Types Packs/Day Years [...] Pulse 63 04/05/2024 11:26 AM EDT Temperature - - Respiratory Rate - - Oxygen Saturation 97% 04/05/2024 11:26 AM EDT Inhaled Oxygen Concentration - - Weight 100.2 kg (221 lb) 04/05/2024 11:26 AM EDT Height 190.5 cm (6' 3 ) 04/05/2024 11:26 AM EDT Body Mass Index 27.62 04/05/2024 11:26 AM EDT documented in this encounter Functional [...] 10/07/2023 9:52 AM Kevyn Etienne CCMA * Because of a physical, [...] Refills Last Filled Start Date End Date LORazepam (ATIVAN) 0.5 mg Oral TabletIndications: Anxiety disorder, unspecified type Take 1 Tablet by mouth 2 times daily as needed for Anxiety. 30 Tablet 2 04/05/2024 metoprolol succinate ER (TOPROL-XL) 100 mg Oral Tablet Sustained Release 24 hrIndications:Esse ntial hypertension Take 0.5 Tablets by mouth daily. 04/05/2024 LORazepam (ATIVAN) 0.5 mg Oral TabletIndications: Anxiety disorder, unspecified type Take 1 Tablet by mouth 2 times daily as needed for Anxiety. 30 Tablet 2 04/05/2024 4 documented in this encounter Progress Notes * Dora Hernandez MD - 04/05/2024 11:20 AM EDT Assessment Diagnoses and all orders for this visit: Peripheral polyneuropathy GBP 2 caps in AM, 3 caps PM. Increase to 3 caps (300 mg) BID if needed. Pt to take rx he has at home. Phone f/u in 2 weeks, sooner prn. Essential hypertension - metoprolol succinate ER (TOPROL-XL) 100 mg Oral Tablet Sustained Release 24 hr; Take 0.5 Tablets by mouth daily. BP is at goal. Managed by Dr Lake. Encounter for long-term current use of medication - COMPLIANCE BENZODIAZEPINE PANEL QUANT ONLY, URINE; Future - COMPLIANCE GABAPENTIN/PREGABALIN, URINE; Future Leg skin lesion, left - AMB REFERRAL TO DERMATOLOGY Pt has been to Dr Helms - recommended compression stockings. Pt requested referral to another Dermfor 2nd opinion. Lumbar degenerative disc disease GBP. Anxiety disorder, unspecified type - LORazepam (ATIVAN) 0.5 mg Oral Tablet; Take 1 Tablet by mouth 2 times daily as needed for Anxiety. Dispense: 30 Tablet; Refill: 2 Labs from [facility] reviewed. Meds were reviewed with pt. Med list updated. Pt to keep appt with Dr Lake. F/u in 6 months and prn. Progress Note: Vitals: 04/05/24 1126 BP: 110/78 BP Location: Right arm Patient Position: Sitting Pulse: 63 SpO2: 97% Weight: 221 lb (100.2 kg) Height: 6' 3 (1.905 m) Body mass index is 27.62 kg/m??. SUBJECTIVE: Chief Complaint Patient presents with Controlled Substance Monitoring HPI: Hypertension: Home reporting of hypertension was reviewed at time of visit. Jac denies any episodes of dizziness, lightheadedness, presyncope, syncope, headache, or chest pain. Jac does not report any new symptoms of possible hypertension sequelae. The patient reports that he is not having significant issues or side effects of current medications/treatments. Pt says he feels better since meds were changed by Dr Lake. Controlled Substance Common Conditions Interval Assessment: Chronic Pain: Reason for visit: ChronicPain Follow-Up - Jac HERNANDEZ is here for regular follow-up for chronic pain. He reports that his pain is slightly worse since last evaluation. Jac HERNANDEZ has not followed up with another provider since last evaluation for this issue. The location(s) of the pain include: legs and feet . Functional limitations include: inability to perform some ADLs. He has been compliant with elements of the controlled substance contract and with recommendations outlined during last assessment. Doing well, No SE's with medication. No evidence of abuse/diversion. Pt informed and aware of medication's potential for abuse/dependence. Functional goal/goals of treatment: abort anxiety attacks. Anxiety: Jac HERNANDEZ is here for follow up of chronic anxiety and medication management. Currently, he reports anxiety level as controlled with current treatments in place. He reports taking current medications 2 times per day. He is not having side effects from medications. He has abstained from alcohol while requiring this medication.Current limitations of anxiety symptoms include: ability to cope with day to day stress, and situations, without medication Doing well, No SE's with medication. No evidence of abuse/diversion. Pt informed and aware of medication's potential for abuse/dependence. Functional goal/goals of treatment: symptom control, improve functional capacity. Controlled Substance Prescribing Management: As part of today's visit Jac is also being followedfor controlled substance management for Peripheral Neuropathy. Details of the progress of the monitored condition are noted in that section of the HPI. The controlled substance flow sheet has been reviewed. Review of Systems OBJECTIVE: Physical Exam Vitals reviewed. Constitutional: General: He is not in acute distress. Appearance: He is well-developed. He is not ill-appearing or diaphoretic. HENT: Head: Normocephalic and atraumatic. Cardiovascular: Rate and Rhythm: Normal rate and regular rhythm. Pulmonary: Effort: Pulmonary effort is normal. Breath sounds: Normal breath sounds. Skin: Comments: Approx 1 cm superficial open wound on anterior asp of L lower leg. No signs of infection. Neurological: General: No focal deficit present. Mental Status: He is alert and oriented to person, place, and time. Psychiatric: Mood and Affect: Mood normal. Behavior: Behavior normal. documented in this encounter Miscellaneous Notes * Patient Instructions - Dora Hernandez MD - 04/05/2024 11:20 AM EDT Take 2 capsules of Gababentin in AM and 3 capsules at night. If this dose does not work and no sideeffects, increase to 3 capsules twice daily. Phone follow up in 6 months, sooner if needed. documented in this encounter Plan of Treatment Scheduled Orders Name Type Priority Associated Diagnoses Orde r Schedule COMPLIANCE BENZODIAZEPINE PANEL QUANT ONLY, URINE Lab Routine Encounter for long-term current use of medication 1 Occurrences starting 04/05/2024 until 04/05/2025 COMPLIANCE GABAPENTIN/PREGABALIN, URINE Lab Routine Encounter for long-term current use of medication 1 Occurrences starting 04/05/2024 until 04/05/2025 Scheduled Referrals Name Type Priority Associated Diagnoses Order Schedule AMB REFERRAL TO DERMATOLOGY Outpatient Referral Routine Leg skin lesion, left Ordered: 04/05/2024 documented as of this encounter Goals Goal [...] of this encounter Visit Diagnoses Diagnosis Peripheral polyneuropathy- Primary Unspecified hereditary and idiopathic peripheral neuropathy Essential hypertension Unspecified essential hypertension Encounter for long-term current use of medication Leg skin lesion, left Unspecified disorder of skin and subcutaneous tissue Lumbar degenerative disc disease Degeneration of lumbar or lumbosacral intervertebral disc Anxiety disorder, unspecified type documented in this encounter Discontinued Medications Medication Sig Discontinue Reason Start Date End Da te losartan (COZAAR) 50 mg Oral TabletIndications:Alejandra william hypertension TAKE 1 TABLET EVERY DAY Cancelled by 10/07/2023 04/05/2024 amLODIPine (NORVASC) 10 mg Oral TabletIndications:Alejandra william hypertension TAKE 1 TABLET EVERY DAY Cancelled by 11/17/2023 04/05/2024 metoprolol succinate ER (TOPROL-XL) 100 mg Oral Tablet Sustained Release 24 hrIndications:Essential hypertension TAKE 1 TABLET EVERY DAY Reorder 03/23/2024 04/05/2024 LORazepam (ATIVAN) 0.5 mg Oral TabletIndications:Anxiety disorder, unspecified type Take 1 Tablet by mouth 2 times daily as needed for Anxiety. Reorder 11/30/2023 04/05/2024 LORazepam (ATIVAN) 0.5 mg Oral TabletIndications:Anxiety disorder, unspecified type Take 1 Tablet by mouth 2 times daily as needed for Anxiety. Reorder 04/05/2024 04/05/2024 documented as of this encounter Historical Medications * This list may reflect changes made after this encounter. valsartan-hydrochlo rothiazide (DIOVAN-HCT) 320-25 mg Oral Tablet 1 Tablet. 03/31/2024 added in this encounter Additional Health Concerns Assessment Noted Time A fall risk assessment has been complete d for the patient 10/07/2023 9:52 AM EST documented as of this encounter Care Teams Equipment Monitor Phototypesetting Relationship Specialty Start Date End Date Dora Hernandez MD [address] [facility] [place] [id number] PCP - General Family Medicine 12/24/15 documented as of this encounter
--- OUTSIDE RECORDS SUMMARY | 2024-09-12 12:42 | XMS_ITS | Encounter Summary ---
Author Organization [place] [address] Care Team Providers Care Product Tester Fiberglass Name Role Phone Dora Hernandez MD Primary Care Provider Reason for Visit * Reason Comments Medication Refill Encounter Details Date Type Department Care Team (Late st Contact Info) Description 11/29/2023 Refill SEP [facility] [address] [facility] [place] [address] Dora Hernandez MD [address] [place] [address] Medication Refill Social History Tobacco [...] Author No 10/07/2023 9:52 AM CODY Partida VARGHESE Panchal * Because of a physical, mental or [...] Refills Last Filled Start Date End Date ezetimibe (ZETIA) 10 mg Oral Tablet TAKE 1 TABLET BY MOUTH DAILY 90 Tablet 3 11/30/2023 LORazepam (ATIVAN) 0.5 mg Oral TabletIndications: Anxiety disorder, unspecified type Take 1 Tablet by mouth 2 times daily as needed for Anxiety. 30 Tablet 2 11/30/2023 04/05/2024 documented in this encounter Miscellaneous Notes * Telephone Encounter - Aurelia Saldana RMA - 11/29/2023 11:25 AM EST Last refill-05/26/23 +2 refills Last ov-10/07/23 Next ov-n/a DESTINEE: 03/26/2023 CSTA-12/01/16 BENOZ-12/01/16 SOAPP-12/01/16 documented in this encounter Plan of Treatment Not on file documented as of this encounter Goals Goal Patient Goal Type Associated Problems Recent Progress Patient-Stated? Author Blood Pressure < 140/90 Blood Pressure 110/78(2023 11:26 AM EDT) Ember Keenan, RN Maintain a healthy diet, exercise regularly and maintain an ideal body weight General No Kmi Solis RMA Maintain a healthy diet, exercise regularly and maintain an ideal body weight General No Aurelia Saldana RMA Stay Tobacco Free Lifestyle No Kim Solis RMA documented as of this encounter Visit Diagnoses Diagnosis Anxiety disorder, unspecified type documented in this encounter Discontinued Medications Medication Sig Discontinue Reason Start Date End Da te ezetimibe (ZETIA) 10 mg Oral Tablet TAKE 1 TABLET BY MOUTH DAILY 02/23/2023 11/30/2023 LORazepam (ATIVAN) 0.5 mg Oral TabletIndications:Anxiety disorder, unspecified type Take 1 Tablet by mouth 2 times daily as needed for Anxiety. 05/26/2023 11/30/2023 documented as of this encounter Additional Health Concerns Assessment Noted Time A fall risk assessment has been complete d for the patient 10/07/2023 9:52 AM EST documented as of this encounter Care Teams Product Tester Fiberglass Relationship Specialty Start Date End Date Dora Hernandez MD [address] [place] [address] PCP - General Family Medicine 12/24/15 documented as of this encounter
--- OUTSIDE RECORDS SUMMARY | 2024-09-12 12:42 | XMS_ITS | Encounter Summary ---
Author Organization [place] [address] Care Team Providers Care Webmethods Consultant Name Role Phone Dora Hernandez MD Primary Care Provider [phone] Reason for Visit * Reason Comments Medication Refill Encounter Details Date Type Department Care Team (Late st Contact Info) Description 01/12/2024 Refill SEP Gloria [facility] [address] [facility] [place] [address] Dora Hernandez MD [address] [place] [address] Medication Refill Social History Tobacco [...] Assessment Author No 10/07/2023 9:52 AM CODY Kevyn Partida CCMA * Because of a physical, mental or emotional condition, does this person have difficulty doing errands alone such as visiting a doctor's office or shopping? Answer Date of Assessment Author No 10/07/2023 9:52 AM CODY PartidaKevyn CCMA documented as of this encounter Mental Status * Because of a physical, mental or emotional condition, does this person have serious difficulty concentrating, remembering or making decisions? Answer Entry Date Author No 10/07/2023 9:52 AM Kevyn Etienne CCMA documented in this encounter Ordered Prescriptions Prescription Sig Dispense Quantity Refills Last Filled Start Date End Date fluticasone propionate (FLONASE) 50 mcg/actuation Nasl [place], SuspensionIndicati ons:Seasonal allergic rhinitis, unspecified trigger USE 2 SPRAYS NASALLY EVERY DAY 48 g 3 01/12/2024 documented in this encounter Plan of Treatment Not on file documented as of this encounter Goals Goal Patient Goal Type Associated Problems Recent Progress Patient-Stated? Author Blood Pressure < 140/90 Blood Pressure 110/78(2023 11:26 AM EDT) No Ember Canela, ASHLEY Maintain a healthy diet, exercise regularly and maintain an ideal body weight General Kim Godinez RMA Maintain a healthy diet, exercise regularly and maintain an ideal body weight General Aurelia Rock RMA Stay Tobacco Free Lifestyle No Kim Solis RMA documented as of this encounter Visit Diagnoses Diagnosis Seasonal allergic rhinitis, unspecified trigger documented in this encounter Discontinued Medications Medication Sig Discontinue Reason Start Date End Da te fluticasone propionate (FLONASE) 50 mcg/actuation Nasl [place], SuspensionIndications:Se asonal allergic rhinitis, unspecified trigger USE 2 SPRAYS NASALLY EVERY DAY 07/21/2023 01/12/2024 documented as of this encounter Additional Health Concerns Assessment Noted Time A fall risk assessment has been complete d for the patient 10/07/2023 9:52 AM EST documented as of this encounter Care Teams Webmethods Consultant Relationship Specialty Start Date End Date Dora Hernandez MD [address] [facility] [place] [address] PCP - General Family Medicine 12/24/15 documented as of this encounter
--- OUTSIDE RECORDS SUMMARY | 2024-09-12 12:42 | XMS_ITS | Encounter Summary ---
Author Organization [place] [address] Care Team Providers Care Outside Parts Salesman Name Role Phone Dora Hernandez MD Primary Care Provider [phone] Reason for Visit * Reason Comments Medication Refill Encounter Details Date Type Department Care Team (Late st Contact Info) Description 08/30/2023 Refill SEP Gloria [facility] [address] [facility] [place] [address] Dora Hernandez MD [address] [place] [address] Medication Refill Social History Tobacco [...] Assessment Author Yes 09/29/2022 10:06 AM Blessing Etienne, VARGHESE * Is the person blind or does [...] of Assessment Author No 09/29/2022 10:06 AM CODY PartidaBlessing CCMA * Because of a physical, mental or emotional condition, does this person have difficulty doing errands alone such as visiting a doctor's office or shopping? Answer Date of Assessment Author No 09/29/2022 10:06 AM CODY PartidaBlessing CCMA documented as of this encounter Mental [...] by mouth 2 times daily. 120 Capsule 5 09/01/2023 4 documented in this encounter Miscellaneous Notes * Telephone Encounter - Dora Hernandez MD - 09/01/2023 8:51 AM EST Rx sent to pharmacy. * Telephone Encounter - Mayuri Hernandez RMA - 09/01/2023 8:17 AM EST LF:03/26/23 with 4 refills OV:08/26/23 DESTINEE: 03/26/2023 CSTA-12/01/16 BENOZ-12/01/16 SOAPP-12/01/16 * Telephone Encounter - Leonor Nur - 08/31/2023 3:20 PM EST Select the most appropriate reason for this telephone message: Other Who is calling (name & relationship to patient if not the patient): Kristyn spouse What is needed OR why are they calling: Kristyn is calling to see why the pt gabapentin. It was calledin yesterday and the pt is out of medication at this time. When is this needed by: Today Where does this information need to go: David Additional information: documented in this encounter Plan of Treatment [...] 2 Capsules by mouth 2 times daily. 03/26/2023 09/01/2023 documented as of this encounter Additional Health Concerns Assessment Noted Time A fall risk assessment has been complete d for the patient 09/29/2022 10:09 AM EST documented as of this encounter Care Teams Outside Parts Salesman Relationship Specialty Start Date End Date Dora Hernandez MD [address] [place] [phone] PCP - General Family Medicine 12/24/15 documented as of this encounter
--- OUTSIDE RECORDS SUMMARY | 2024-09-12 12:42 | XMS_ITS | Encounter Summary ---
Author Organization [place] [address] Care Team Providers Care Clear Coat Sprayer Name Role Phone Dora Hernandez MD Primary Care Provider [phone] Reason for Visit * Reason Onset Date Comments Appointment Needed 10/11/2023 bw Encounter Details Date Type Department Care Team (Late st Contact Info) Description 10/11/2023 Telephone [facility] [address] [facility] [place] [address] Dora Hernandez MD [address] [place] [address] Appointment Needed (bw) Social History Tobacco Use Types Packs/Day Years [...] Author No 10/07/2023 9:52 AM EST Kevyn Partida CCMA * Does this person have serious difficulty walking or climbing stairs? Answer Date of Assessment Author No 10/07/2023 9:52 AM EST Kevyn Partida CCMA * Does this person have difficulty dressing or bathing? Answer Date of Assessment Author No 10/07/2023 9:52 AM EST Kevyn Partida CCMA * Because of a [...] Kevyn Etienne CCMA documented in this encounter Miscellaneous Notes * Telephone Encounter - Hieu Vasquez - 10/11/2023 10:05 AM EST Pt scheduled 10/13 * Telephone Encounter - Marlen Sampson - 10/11/2023 9:53 AM EST Select the most appropriate reason for this telephone message: Appointment Needed Appointment Requested By: Other pt's Provider Preference: Any Available Type of Appt Needed: Labs Detailed Reason for Appt: bw Requested Timeframe: Wednesday or Wednesday any time Reason Scheduling Assistance is Needed: Call Center not permitted to schedule Additional Notes: documented in this encounter Plan of Treatment [...] ideal body weight General No Aurelia Saldana, GENNY Stay Tobacco Free Lifestyle No Kim Solis RMA documented as of this encounter Visit Diagnoses Not on filedocumented in this encounter Additional Health Concerns Assessment Noted Time A fall risk assessment has been complete d for the patient 10/07/2023 9:52 AM EST documented as of this encounter Care Teams Clear Coat Sprayer Relationship Specialty Start Date End Date Dora Hernandez MD [address] [place] [address] PCP - General Family Medicine 12/24/15 documented as of this encounter
--- OUTSIDE RECORDS SUMMARY | 2024-09-12 12:42 | XMS_ITS | Encounter Summary ---
Author Organization [place] [address] Care Team Providers Care Fitting Room Maintenance Mechanic Name Role Phone Dora Hernandez MD Primary Care Provider [phone] Reason for Visit * Reason Comments Medication Refill Encounter Details Date Type Department Care Team (Late st Contact Info) Description 02/28/2024 Refill SEP Gloria [facility] [address] [facility] [place] [address] Dora Hernandez MD [address] [place] [address] Medication Refill Social History Tobacco [...] by mouth 2 times daily. 120 Capsule 1 02/29/2024 documented in this encounter Miscellaneous Notes * Telephone Encounter - Ember Cabrera - 02/29/2024 3:14 PM EDT LVM advising pt * Telephone Encounter - Dora Hernandez MD - 02/29/2024 2:45 PM EDT Sent to pharmacy. Pls remind pt to sched appt 6 months from last visit with me. Thanks. * Telephone Encounter - Ree Stout CCMA - 02/28/2024 2:49 PM EDT DESTINEE: 03/26/2023 CSTA-12/01/16 BENOZ-12/01/16 SOAPP-12/01/16 HCC audit completed by Estella Wu on 07/02/2021. HCC audit completed by Marisela Parker RN on 07/08/2021. CYNDIE for this medication 10/07/23 NOV--Visit date not found Fill- 09/01/2023, 5rf documented in this encounter Plan of Treatment [...] 2 Capsules by mouth 2 times daily. 09/01/2023 02/29/2024 documented as of this encounter Additional Health Concerns Assessment Noted Time A fall risk assessment has been complete d for the patient 10/07/2023 9:52 AM EST documented as of this encounter Care Teams Fitting Room Maintenance Mechanic Relationship Specialty Start Date End Date Dora Hernandez MD [address] [facility] [place] [phone] PCP - General Family Medicine 12/24/15 documented as of this encounter
--- OUTSIDE RECORDS SUMMARY | 2024-09-12 12:42 | XMS_ITS | Encounter Summary ---
Author Organization [place] [address] Care Team Providers Care Adult Literacy Instructor Name Role Phone Dora Hernandez MD Primary Care Provider [phone] Reason for Visit * Reason Onset Date Comments Follow-up 03/14/2024 Encounter Details Date Type Department Care Team (Late st Contact Info) Description 03/14/2024 Telephone [facility] [address] [place] [id number] Clemente Villalobos MD [address] [place] [address] Follow-up Social History Tobacco Use Types Packs/Day Years [...] Assessment Author No 10/07/2023 9:52 AM Kevyn Etienne, MAEA * Is the person blind or does he/she have serious difficulty seeing even when wearing glasses? Answer Date of Assessment Author No 10/07/2023 9:52 AM EST PartidaKevyn CCMA * Does this person have [...] encounter Miscellaneous Notes * Telephone Encounter - Ashley Matson - 03/14/2024 10:04 AM EDT Spoke with patient's about $375 outpatient surgery co-pay. I explained that this could be assessed per visit depending upon the treatment received. I also told patient's that [facility] has financial assistance programs to look in to. Pt's verbalized understanding. documented in this encounter Plan of Treatment [...] documented as of this encounter Care Teams Adult Literacy Instructor Relationship Specialty Start Date End Date Dora Hernandez MD [address] [facility] [address] PCP - General Family Medicine 12/24/15 documented as of this encounter
--- OUTSIDE RECORDS SUMMARY | 2024-09-12 12:42 | XMS_ITS | Encounter Summary ---
Author Organization [place] [address] Care Team Providers Care Patrol Community Service Officer Name Role Phone Dora Hernandez MD Primary Care Provider [phone] Reason for Visit * Reason Comments Flu Vaccine High dose flu vaccin e given R deltoid im Encounter Details Date Type Department Care Team (Late st Contact Info) Description 07/27/2023 3:50 PM EDT Immunization SEP [facility] [address] [place] [id number] Jennifer Garcia, A [address] [place] [address] Immunization/Injectio n Social History Tobacco Use Types Packs/Day Years [...] Author Yes 09/29/2022 10:06 AM [facility] * Is the person blind [...] Blessing Etienne CCMA documented in this encounter Progress Notes * Jennifer Garcia RMA - 07/27/2023 3:50 PM EDT High dose flu vaccine given R deltoid im documented in this encounter Plan of Treatment [...] as of this encounter Visit Diagnoses Diagnosis Flu vaccine need- Primary Need for prophylactic vaccination and inoculation against influenza documented in this encounter Orders Immunization/Injection Count Last Ordered Date First Ordered Date QUADRIVALENT FLUZONE HIGH DOSE 1 07/27/2023 documented in this encounter Additional Health Concerns Assessment Noted Time A fall risk assessment has been complete d for the patient 09/29/2022 10:09 AM EST documented as of this encounter Care Teams Patrol Community Service Officer Relationship Specialty Start Date End Date Dora Hernandez MD [address] [facility] [place] [phone] PCP - General Family Medicine 12/24/15 documented as of this encounter
--- OUTSIDE RECORDS SUMMARY | 2024-09-12 12:42 | XMS_ITS | Encounter Summary ---
Author Organization [place] [address] Care Team Providers Care Cfo Controller Name Role Phone Dora Hernandez MD Primary Care Provider [phone] Reason for Visit * Reason Onset Date Comments Medication Refill 07/27/2023 losartan (COZA AR) 50 mg Oral Tablet Encounter Details Date Type Department Care Team (Late st Contact Info) Description 07/27/2023 Telephone SEP Gloria Leon [address] [facility] [place] [address] Dora Hernandez MD [address] [facility] [place] [address] Medication Refill (losartan (COZAAR) 50 mg Oral Tablet) Social History Tobacco Use Types Packs/Day Years [...] Yes 09/29/2022 10:06 AM [facility] * Is the person blind or does [...] Refills Last Filled Start Date End Date losartan (COZAAR) 50 mg Oral TabletIndications: Essential hypertension TAKE 1 TABLET EVERY DAY 90 Tablet 1 07/27/2023 10/07/2023 documented in this encounter Miscellaneous Notes * Telephone Encounter - Maribel Myers - 07/27/2023 9:54 AM EDT Select the most appropriate reason for this telephone message: Medication Refill Who is requesting the refill: Other Medication(s)Name/Dosage/Frequency: Disp Refills Start End losartan (COZAAR) 50 mg Oral Tablet 90 Tablet 0 02/17/2023 Sig: TAKE 1 TABLET EVERY DAY Sent to pharmacy as: losartan 50 mg tablet (COZAAR) Cosign for Ordering: Accepted by Dora Hernandez MD on 02/17/2023 11:25 AM E-Prescribing Status: Receipt confirmed by pharmacy (02/17/2023 11:15 AM EDT) Did patient contact the pharmacy first: No How many days left on hand: unsure Future appt date w/ prescribing provider: 10/07 Pharmacy & Location: [facility] Additional Notes: documented in this encounter Plan [...] te losartan (COZAAR) 50 mg Oral TabletIndications:Alejandra al hypertension TAKE 1 TABLET EVERY DAY Reorder 02/17/2023 07/27/2023 documented as of this encounter Additional Health Concerns Assessment Noted Time A fall risk assessment has been complete d for the patient 09/29/2022 10:09 AM EST documented as of this encounter Care Teams Cfo Controller Relationship Specialty Start Date End Date Dora Hernandez MD [address] [facility] [place] [phone] PCP - General Family Medicine 12/24/15 documented as of this encounter
--- OUTSIDE RECORDS SUMMARY | 2024-09-12 12:42 | XMS_ITS | Encounter Summary ---
Author Organization [place] [address] Care Team Providers Care Triage Clinician Name Role Phone Dora Hernandez MD Primary Care Provider [phone] Reason for Referral * MRI/CAT Scan (Routine) - Pending Review Specialty Diagnoses / Procedures Referred By Contac t Referred To Contact Radiology Diagnoses Pulmonary nodule, right Procedures CT CHEST W CONTRAST Dora Hernandez MD [address] [place] [address] Phone: tel: fax: Referral ID Status Reason Start Date Expiration Date V isits Requested Visits Authorized [id number] Pending Review 10/07/2023 10/06/2024 1 1 Reason for Visit * Reason Comments Medicare Annual Wellness Encounter Details Date Type Department Care Team (Late st Contact Info) Description 10/07/2023 10:00 AM EST Office Visit [facility] [address] [place] [address] Dora Hernandez MD [address] [place] [address] Medicare annual wellness visit, subsequent (Primary Dx); Cellulitis of leg, left; Peripheral polyneuropathy; Anxiety disorder, unspecified type; Type 2 diabetes mellitus without complication, without long-term current use of insulin (HCC); Atrial fibrillation, unspecified type (HCC); Pulmonary nodule, right; Lumbar degenerative disc disease; Essential hypertension Social History Tobacco Use Types Packs/Day Years [...] Sign Reading Time Taken Comments Blood Pressure 120/60 10/07/2023 9:51 AM EST Pulse 64 10/07/2023 9:51 AM EST Temperature 36.4 ??C (97.6 ??F) 10/07/2023 9:51 AM ES T Respiratory Rate - - Oxygen Saturation 99% 10/07/2023 9:51 AM EST Inhaled Oxygen Concentration - - Weight 112.5 kg (248 lb) 10/07/2023 9:51 AM EST Height 190.5 cm (6' 3 ) 10/07/2023 9:51 AM EST Body Mass Index 31 10/07/2023 9:51 AM EST documented in this encounter Functional Status * Is the person deaf or does he/she have serious difficulty hearing? Answer Date of Assessment Author No 10/07/2023 9:52 AM EST Kevyn Partida CCMA * Is the person blind or [...] (NORVASC) 10 mg Oral TabletIndications: Essential hypertension Take 1 Tablet by mouth daily. 90 Tablet 3 10/07/2023 11/17/2023 metoprolol succinate ER (TOPROL-XL) 100 mg Oral Tablet Sustained Release 24 hrIndications:Esse ntial hypertension Take 1 Tablet by mouth daily. 90 Tablet 1 10/07/2023 03/23/2024 losartan (COZAAR) 50 mg Oral TabletIndications: Essential hypertension TAKE 1 TABLET EVERY DAY 90 Tablet 3 10/07/2023 04/05/2024 ciprofloxacin HCl (CIPRO) 500 mg Oral TabletIndications: Cellulitis of leg, left Take 1 Tablet by mouth 2 times daily for 10 days. 20 Tablet 10/07/2023 10/17/2023 documented in this encounter Progress Notes * Dora Hernandez MD - 10/07/2023 10:00 AM EST Assessment Diagnoses and all orders for this visit: Medicare annual wellness visit, subsequent Cellulitis of leg, left - ciprofloxacin HCl (CIPRO) 500 mg Oral Tablet; Take 1 Tablet by mouth 2 times daily for 10 days. Dispense: 20 Tablet; Refill: 0 Peripheral polyneuropathy Anxiety disorder, unspecified type Type 2 diabetes mellitus without complication, without long-term current use of insulin (HCC) (Chronic) - COMPREHENSIVE METABOLIC PANEL; Future - LIPID PANEL REFLEX; Future - CBC; Future Atrial fibrillation, unspecified type (HCC) (Chronic) - STABLE, MANAGED BY SPECIALIST Pulmonary nodule, right - CT CHEST W CONTRAST; Future Lumbar degenerative disc disease Essential hypertension - losartan (COZAAR) 50 mg Oral Tablet; TAKE 1 TABLET EVERY DAY Dispense: 90 Tablet; Refill: 3 - metoprolol succinate ER (TOPROL-XL) 100 mg Oral Tablet Sustained Release 24 hr; Take 1 Tablet by mouth daily. Dispense: 90 Tablet; Refill: 1 - amLODIPine (NORVASC) 10 mg Oral Tablet; Take 1 Tablet by mouth daily. Dispense: 90 Tablet; Refill: 3 PDMP reviewed - AE. GRAYSON UTD. He takes ativan prn - for doc appt and attending a meeting/function. Fall precautions. Echo results reviewed. He follows with Dr Lake - no rx. Continue to monitor BP/HR at home. Reminded pt on f/u Chest CT. F/u in 6 months and prn. Progress Note: Vitals: 10/07/23 0951 BP: 120/60 BP Location: Left arm Patient Position: Sitting Pulse: 64 Temp: 97.6 ??F (36.4 ??C) TempSrc: Temporal SpO2: 99% Weight: 248 lb (112.5 kg) Height: 6' 3 (1.905 m) Body mass index is 31 kg/m??. SUBJECTIVE: Chief Complaint Patient presents with ??? Medicare Annual Wellness HPI: Medicare Wellness Assessment: Subsequent Annual Medicare Wellness Assessment. Risk Assessments: Fall Risk Assessment Has the patient had any fall with injury in the past year?: No Has the patient had 2 or more falls in the past year?: No Is the patient able to sit without assistance?: Yes Is the patient able to get up without assistance?: Yes Does the patient have a difficult time ambulating when first getting up?: No Does the patient have rugs or runners in the home?: No Does the patient have grab bars in the bathroom?: Yes Does the patient have stairs in the home?: No (In Office Assessment Only): Is the patient able to ambulate without assistance/device and with a gait steady?: Yes (In Office Assessment Only): TUG test: Time patient going from sitting to standing, walk 10 feet, return to chair and sit. Record time. : Less or equal to 12 seconds Functional Status Assessment Functional Level: self care Functional Mobility Assessment: independent w/o assist device Assessment of transportation needs: still drives most of the time Functional Activities of Daily Living Limitations: No issues Activities of Daily Living Assistive Device Assessment Assistive Devices: Cane; Eyeglasses Rx Osteoporosis Screening Assessment Has the patient had a DEXA (Bone Density) scan in the past 2 years?: Not applicable (male) No results found for this or any previous visit. Abnormal Pains Assessment Excluding what you would consider normal aches and pains for your age and medical condition, do youhave any unusual or worrisome pains?: No Opiate Screening PHQ Depression Screening Results Little interest or pleasure in doing things: 0 Feeling down, depressed, or hopeless: 0 PHQ-2 Total Score: 0 PHQ-9 Total Score: 0 Advanced Directive Evaluation Advance Care Planning Guide Given?: Yes (For Dementia Screening below can use either AD-8 or Mini Cog. Doesn't require both.) AD-8 Dementia Screening tool results Mini Cog Dementia Screening tool results Number of words immediately repeated back correctly.: 3 Number of Words Recalled: 3 Dementia: Negative Welcome to Medicare Vision Screening Eye Exam : Not applicable/required for Subsequent AWV, only required for Welcome to Medicare Visit Patient Instructions AWV findings and Plan of Care: Recommendations as part of the Personal Plan of Care based on risk screening assessments are: Fall Risk Assessment: Fall Risk Assessment: negative - re-assess in 1 year Functional Status/Social Determinates of Health: stable, no issues, re-assess in 1 year Depression Screening: negative - re-assess in 1 year Dementia Screening: negative - recommend re-assess in 1 year Vaccinations: Recommended discussion about RSV vaccine at the pharmacy Recommended seasonal COVID vaccine - patient declined Exercise/Activity: recommended continuing current As tolerated. Recommended follow up annually for Medicare Annual Wellness Visit. Good preventative health care is important in reducing morbidity and mortality. I recommend exercise regularly as tolerated focusing on strength and balance. I recommend a balanced diet focusing on fruits, veggies, and lean meats. I recommend avoiding having rugs, runners, or other loose trip hazards in the home as these increase fall risk. I recommend installing grab bars in the bathrooms close to toilets, in tubs, and in showers as these are common areas for falls when transitioning from wet surfaces to dry surfaces, or visa versa. This is also an area of the home that is high risk for falls at night. I encourage having an Advanced Directives. This is something we recommend you have on file at home,as well as something that we should have on file in our records. If we don't have a copy of your current Advanced Directive, please bring a copy to your next visit. If you have a power of study director orsurrogate, we should also have a copy on file. I encourage candid discussion with your family on your wishes in the event that you are incapacitated and unable to participate in direct medical decision making. It is important to stay up to date on recommended vaccinations, please see the health maintenance topics due below and if we have not completed one of those topics today, please consider completing as part of your wellness plan this year. Below are other health maintenance topics that are recommended to be closed at your earliest opportunity. You may notice that some of these were addressed in the office today and will show as resolved in your [employer] account soon. Health Maintenance Due Topic Date Due ??? Zoster (1 of 2) Never done ??? RSV or 60+ (1 - 1-dose 60+ series) Never done ??? DTaP/TDaP/Td (1 - Tdap) 07/18/2012 ??? Low Dose Lung Cancer Screening 12/30/2017 As part of today's visit the components of the Medicare wellness assessment were completed. These components included reviewing the information available in the risk screening questionnaire that was administered by ancillary staff either today or prior to today's visit (pre-visit planning) and recorded in the Medicare Wellness Assessment Flowsheet in the EMR. I have reviewed the data in regards to fall risk, activities of daily living/functional status, depression screening, dementia screening,and outstanding Health Maintenance topics and edited where necessary. The staff has reviewed and updated the past medical history, social history, family history, allergies, medications, and care team information during the standard rooming process. I have also reviewed this data as part of today'svisit. Below are the findings, recommendations, and Personal Plan of Care. The patient received a copy of their Personal Plan of Care including health maintenance topics thatare recommended to be completed and this can be noted in the after visit summary. The AVS is provided to the patient digitally through their [employer] account or with a paper copy if the patient doesn't have an active MyChart Account. A copy of today's progress note with recommendations below is alsoavailable electronically for patients with an active MyChart account per the Federal Cures Act. TheAVS also contains additional patient education if appropriate on topics common to wellness and their plan of care. History Reviewed: No results found. No results found for this visit on 10/07/23. Patient Active Problem List Diagnosis ??? Hyponatremia ??? Recurrent acute otitis media of both ears ??? Non morbid obesity due to excess calories ??? Elevated blood sugar ??? Essential hypertension ??? Pulmonary nodule, right ??? Former smoker ??? Uses hearing aid ??? Lipoma of back ??? Mass of skin of right shoulder ??? Primary osteoarthritis of both knees ??? Peripheral polyneuropathy ??? Situational anxiety ??? Obesity, Class I, BMI 30-34.9 ??? Hyperlipidemia ??? Statin intolerance ??? BPH without urinary obstruction ??? Seasonal allergic rhinitis ??? Bilateral hearing loss ??? Enlarged prostate with urinary retention ??? Lumbar degenerative disc disease ??? Heart murmur Past Medical History: Diagnosis Date ??? Heart murmur 03/31/2023 ??? Hyperlipidemia 04/17/2021 ??? Hypertension ??? Neuropathy ??? Tobacco use 12/23/2015 Past Surgical History: Procedure Laterality Date ??? CARDIAC CATHETERIZATION ??? DENTAL SURGERY ??? FOOT SURGERY Allergies Allergen Reactions ??? Crestor [Rosuvastatin] Other (See Comments) Leg weakness Current Outpatient Medications on File Prior to Visit Medication Sig Dispense Refill ??? ezetimibe (ZETIA) 10 mg Oral Tablet TAKE 1 TABLET BY MOUTH DAILY 90 Tablet 2 ??? fluticasone propionate (FLONASE) 50 mcg/actuation Nasl [place], Suspension USE 2 SPRAYS NASALLY EVERY DAY 48 g 0 ??? gabapentin (NEURONTIN) 100 mg Oral Capsule Take 2 Capsules by mouth 2 times daily. 120 Capsule 5 ??? LORazepam (ATIVAN) 0.5 mg Oral Tablet Take 1 Tablet by mouth 2 times daily as needed for Anxiety. 30 Tablet 2 ??? PSYLLIUM HUSK, ASPARTAME, ORAL Take by mouth. ??? XARELTO 20 mg Oral Tablet ??? diclofenac (VOLTAREN) 1 % Top Gel Apply 2 g topically 4 times daily. (Patient not taking: Reported on 10/07/2023) 300 g 2 No current facility-administered medications on file prior to visit. Social History Socioeconomic History ??? Marital status: Spouse name: None ??? Number of children: None ??? Years of education: None ??? Highest education level: None Tobacco Use ??? Smoking status: Former Current packs/day: 0.00 Average packs/day: 2.0 packs/day for 50.0 years (100.0 ttl pk-yrs) Types: Pipe, Cigarettes Start date: 01/02/1966 Quit date: 01/03/2016 Years since quittin.7 ??? Smokeless tobacco: Never Substance and Sexual Activity ??? Alcohol use: Yes Alcohol/week: 0.0 oz Types: 2 - 3 Cans of beer per week Comment: beer and wine ??? Drug use: No Family History Problem Relation Age of Onset ??? Heart Attack Mother 58 ??? No Known Problems Father ??? No Known Problems Sister ??? No Known Problems Maternal Grandmother ??? No Known Problems Maternal Grandfather ??? No Known Problems Paternal Grandmother ??? No Known Problems Paternal Grandfather ??? Hearing Loss Neg Hx ??? Allergies Neg Hx ??? Migraines Neg Hx ??? Heart Disease Neg Hx ??? Thyroid Disease Neg Hx ??? Bleeding Prob Neg Hx ??? Cancer Neg Hx ??? Colon Cancer Neg Hx ??? Esophageal Cancer Neg Hx ??? Liver Cancer Neg Hx ??? Liver Disease Neg Hx ??? Rectal Cancer Neg Hx ??? Stomach Cancer Neg Hx Immunization History Administered Date(s) Administered ??? Influenza High Dose 08/31/2019 ??? Pfizer SARS-CoV-2 Vaccine 12+ Yrs (Purple Cap) 12/13/2020, 01/03/2021, 09/29/2021 ??? Pneumococcal Conjugate Vaccine 13 Valent 2015 ??? Pneumococcal Polysaccharide 23 Valent 06/19/2019 ??? Quadrivalent Influenza High Dose 08/13/2020, 09/12/2021, 09/29/2022, 07/27/2023 ??? Td, Unspecified Formulation 07/17/2012 Health Maintenance Topic Date Due ??? Zoster (1 of 2) Never done ??? RSV or 60+ (1 - 1-dose 60+ series) Never done ??? DTaP/TDaP/Td (1 - Tdap) 07/18/2012 ??? Low Dose Lung Cancer Screening 12/30/2017 ??? COVID-19 Vaccine (2022- season) 2024 (Originally 06/25/2023) ??? Wellness Exam Medicare 10/07/2024 ??? Influenza Vaccine Completed ??? Pneumococcal Vaccine 65+ Completed ??? Hepatitis B Vaccine Aged Out Patient Care Team: Dora Hernandez MD as PCP - General (Family Medicine) Additional issues addressed today: C/o L leg redness and discomfort. Had a blister that pooped open. used hibiclens solution which has helped. No fever. Hypertension: Home reporting of hypertension was reviewed at time of visit. Jac denies any episodes of dizziness, lightheadedness, presyncope, syncope, headache, or chest pain. Jac does not report any new symptoms of possible hypertension sequelae. The patient reports that he is not having significant issues or side effects of current medications/treatments. Controlled Substance Common Conditions Interval Assessment: Chronic Pain: Reason for visit: ChronicPain and Neuropathy Follow-Up - Jac HERNANDEZ is here for regular follow-up for chronic pain. He reports that his pain is stable and unchanged since last evaluation. Jac HERNANDEZ has not followed up with another provider since last evaluation for this issue. The location(s) of the pain include: low back, knees, feet Functional limitations include: inability to perform most ADLs. He has been compliant with elements of the controlled substance contract and with recommendations outlined during last assessment. Doing well, No SE's with medication. No evidence of abuse/diversion. Pt informed and aware of medication's potential for abuse/dependence. Functional goal/goals of treatment: Help with symptoms, remain independent with ADLs, improve QOL. Anxiety: Jac HERNANDEZ is here for follow up of chronic anxiety and medication management. Currently, he reports anxiety level as controlled with current treatments in place. He reports taking current medications 1 times per day PRN. Only during doc appt and functions. He is not having side effects from medications. He has abstained from alcohol while requiring this medication. Current limitations of anxiety symptoms include: ability to cope with day to day stress, and situations, without medication Doing well, No SE's with medication. No evidence of abuse/diversion. Pt informed and aware of medication's potential for abuse/dependence. Functional goal/goals of treatment: Abort anxiety attacks during doc appt and functions/meetings. Controlled Substance Prescribing Management: As part of today's visit Jac is also being followedfor controlled substance management for anxiety. Details of the progress of the monitored conditionare noted in that section of the HPI. The controlled substance flow sheet has been reviewed. Review of Systems Constitutional: Negative for fever. Respiratory: Negative for shortness of breath. Cardiovascular: Negative for chest pain. OBJECTIVE: Physical Exam Vitals and nursing note reviewed. Constitutional: General: He is not in acute distress. Appearance: Normal appearance. He is well-developed. He is not ill-appearing or diaphoretic. HENT: Head: Normocephalic and atraumatic. Ears: Comments: (+) hearing aids Mouth/Throat: Mouth: Mucous membranes are moist. Pharynx: Oropharynx is clear. Eyes: General: No scleral icterus. Right eye: No discharge. Left eye: No discharge. Conjunctiva/sclera: Conjunctivae normal. Neck: Thyroid: No thyromegaly. Cardiovascular: Rate and Rhythm: Normal rate and regular rhythm. Heart sounds: Murmur heard. Pulmonary: Effort: Pulmonary effort is normal. Breath sounds: Normal breath sounds. Abdominal: General: There is no distension. Palpations: Abdomen is soft. Tenderness: There is no abdominal tenderness. Musculoskeletal: General: Normal range of motion. Cervical back: Neck supple. Right lower leg: No edema. Left lower leg: No edema. Comments: Erythema on anterior asp of LLE. Warm to touch. Lymphadenopathy: Cervical: No cervical adenopathy. Neurological: General: No focal deficit present. Mental Status: He is alert and oriented to person, place, and time. Psychiatric: Mood and Affect: Mood normal. Behavior: Behavior normal. documented in this encounter Plan of Treatment Scheduled Orders Name Type Priority Associated Diagnoses Orde r Schedule CT CHEST W CONTRAST Imaging Routine Pulmonary nodule, right 1 Occurrences starting 10/07/2023 until 10/07/2024 documented as of this encounter Goals Goal [...] Procedure Name Priority Date/Time Associated Diagnosis Comments SCANNED LABS 03/23/2024 5:37 AM EDT documented in this encounter Results * SCANNED LABS (03/23/2024 5:37 AM EDT) 03/23/2024 5:37 AM EDT us Unknown Provider HEMATOLOGY ORDERABLES Final Res ult * (ABNORMAL) CBC (10/13/2023 8:47 AM EST) WBC 5.9 3.7 - 10.3 x10(3)/mcL 10/13/2023 [...] ORDERABLES Final Res ult [facility] [address] [facility] , [place] [address] * LIPID PANEL REFLEX (10/13/2023 8:47 AM EST) Cholesterol 146 <200 mg/dL 10/13/2023 3:34 PM EST [facility] Comment: < 200 ?Desirable 200 - 239 ? Borderline High >= 240 ?High Triglyceride 48 <150 mg/dL 10/13/2023 3:34 PM EST [facility] Comment: < 150 ? Normal 150 - 199 ?Borderline High 200 - 499 ?High ??>= 500 ? Very High HDL 56 >=40 mg/dL 10/13/2023 3:34 PM EST [facility] Comment: ??> 60 ?Optimal 40 - 60 ?Acceptable ?? < 40 ?Low LDL Calculated 79 <100 mg/dL 10/13/2023 3:34 PM EST [facility] Non-HDL-C Calculated 90 <=129 mg/dL 10/13/2023 3:34 PM EST [facility] Comment: <130 ?Desirable 130-159 Above Desirable 160-189 Borderline High 190-219 High >= 220 ??Very High Fasting Specimen? Yes None 023 3:34 PM EST [facility] Blood VENOUS BLOOD / Unknown Venipuncture / Unknown 10/13/2023 8:47 AM EST 10/13/2023 8:47 AM EST us Dora Hernandez MD CHEMISTRY ORDERABLES Final Resu lt [facility] [address], [address] [place] [id number] [facility] [address] [place] [address] * (ABNORMAL) COMPREHENSIVE METABOLIC PANEL (10/13/2023 8:47 AM EST) Sodium 141 136 - 145 mmol/L 10/13/2023 3:34 PM EST [facility] Potassium 4.4 3.5 - 5.0 mmol/L 10/13/2023 3:34 PM EST [facility] Chloride 109(H) 98 - 107 mmol/L 10/13/2023 3:34 PM EST [facility] Total CO2 23 22 - 29 mmol/L [...] 10/13/2023 3:34 PM EST [facility] Albumin 4.3 3.2 - 4.6 gm/dL 10/13/2023 3:34 PM EST [facility] Total Protein 7.4 6.4 - 8.3 gm/dL 10/13/2023 3:34 PM EST [facility] Bili Total 1.0 0.2 - 1.4 mg/dL 10/13/2023 3:34 PM EST [facility] ALT 20 <=41 U/L 10/13/2023 3:34 PM EST [facility] AST 19 <=40 U/L 10/13/2023 3:34 PM EST [facility] Alk Phos 157(H) 40 - 129 U/L 10/13/2023 3:34 PM EST [facility] eGFR (CKD-EPIcr 2020) 54(L) >=60 mL/min/1.7 3 m2 10/13/2023 3:34 PM EST [facility] Comment:Estimated GFR was ca lculated using the CKD-EPIcr (2020) equation refit without race. The equation is recommended by the National Kidney Foundation - [place] [employer] of Nephrology Task Force. Blood VENOUS BLOOD / Unknown Venipuncture / Unknown 10/13/2023 8:47 AM EST 10/13/2023 8:47 AM EST us Dora Hernandez MD CHEMISTRY ORDERABLES Final Resu lt [facility], [address] , [address] [place] [id number] [facility] [address] [place] [address] [phone] documented in this encounter Visit Diagnoses Diagnosis Medicare annual wellness visit, subsequent- Primary Routine general medical examination at a health care facility Cellulitis of leg, left Cellulitis and abscess of leg, except foot Peripheral polyneuropathy Unspecified hereditary and idiopathic peripheral neuropathy Anxiety disorder, unspecified type Type 2 diabetes mellitus without complication, without long-term current use of insulin (HCC) Atrial fibrillation, unspecified type (HCC) Pulmonary nodule, right Solitary pulmonary nodule Lumbar degenerative disc disease Degeneration of lumbar or lumbosacral intervertebral disc Essential hypertension Unspecified essential hypertension documented in this encounter Discontinued Medications Medication Sig Discontinue Reason Start Date End Da te vit A/vit C/vit E/zinc/copper (ICAPS AREDS ORAL) Take by mouth daily. Patient discharge 10/07/2023 metoprolol succinate ER (TOPROL-XL) 100 mg Oral Tablet Sustained Release 24 hrIndications:Essential hypertension TAKE 1 TABLET EVERY DAY Reorder 05/20/2023 10/07/2023 losartan (COZAAR) 50 mg Oral TabletIndications:Essenti al hypertension TAKE 1 TABLET EVERY DAY Reorder 07/27/2023 10/07/2023 amLODIPine (NORVASC) 10 mg Oral TabletIndications:Essenti al hypertension Take 1 Tablet by mouth daily. Reorder 02/25/2023 10/07/2023 documented as of this encounter Orders Nursing Count Last Ordered Date First Orde red Date STABLE, MANAGED BY SPECIALIST 1 10/07/2023 documented in this encounter Additional Health Concerns Assessment Noted Time A fall risk assessment has been complete d for the patient 10/07/2023 9:52 AM EST documented as of this encounter Care Teams Triage Clinician Relationship Specialty Start Date End Date Dora Hernandez MD [address] [facility] [place] [address] PCP - General Family Medicine 12/24/15 documented as of this encounter
--- OUTSIDE RECORDS SUMMARY | 2024-09-12 12:42 | XMS_ITS | Encounter Summary ---
Author Organization [place] [address] Care Team Providers Care Surgical Scheduler Name Role Phone Dora Hernandez MD Primary Care Provider [phone] Reason for Visit * Reason Onset Date Comments Follow-up 03/09/2024 Encounter Details Date Type Department Care Team (Late st Contact Info) Description 03/09/2024 Telephone [facility] [address] [place] [id number] Clemente Villalobos MD [address] [place] [address] Follow-up Social History Tobacco Use [...] 9:52 AM CODY Kevyn Partida CCMA * Does this person [...] * Telephone Encounter - Ashley Matson - 03/09/2024 11:53 AM EDT Attempted to call patient about possible outpatient wound care co-pay of $375. No answer. Left voicemail about co-pay and the possibility that it could be charged per visit depending upon the treatment received. Also, left phone number for the [facility] for any questions. documented in this encounter Plan of Treatment [...] documented as of this encounter Care Teams Surgical Scheduler Relationship Specialty Start Date End Date Dora Hernandez MD [address] [facility] [place] [address] PCP - General Family Medicine 12/24/15 documented as of this encounter
--- OUTSIDE RECORDS SUMMARY | 2024-09-12 12:42 | XMS_ITS | Encounter Summary ---
Author Organization [place] [address] Care Team Providers Care Invisible Braces Orthodontist Name Role Phone Dora Hernandez MD Primary Care Provider [phone] Reason for Visit * Reason Comments Labs Only Encounter Details Date Type Department Care Team (Latest Contact Info) Description 10/13/2023 9:00 AM EST [facility] [address] [place] [address] Radha Jennifer Luis Armando, A [address] [place] [address] Type 2 diabetes mellitus without complication, without long-term current use of insulin (HCC) Social History Tobacco Use Types Packs/Day Years [...] No 10/07/2023 9:52 AM EST Kevyn Partida, MAEA * Is the person blind or [...] No 10/07/2023 9:52 AM EST Kevyn Partida michaelsondraVARGHESE [place] * Because of a physical, mental or emotional condition, does this person have difficulty doing errands alone such as visiting a doctor's office or shopping? Answer Date of Assessment Author No 10/07/2023 9:52 AM Kevyn EtienneVARGHESE [place] documented as of this encounter Mental Status * Because of a physical, mental or emotional condition, does this person have serious difficulty concentrating, remembering or making decisions? Answer Entry Date Author No 10/07/2023 9:52 AM CODY Partida Kevyn VARGHESE Velasquez documented in this encounter Progress Notes * Jennifer Garcia RMA - 10/13/2023 9:00 AM EST Venipuncture R ac #21g wnl documented in this encounter Plan of Treatment [...] Procedure Name Priority Date/Time Associated Diagnosis Comments LIPID PANEL REFLEX Routine 10/13/2023 8: 47 AM EST Type 2 diabetes mellitus without complication, without long-term current use of insulin (HCC) CBC Routine 10/13/2023 8:47 AM EST Type 2 diabetes mellitus without complication, without long-term current use of insulin (HCC) COMPREHENSIVE METABOLIC PANEL Routine 10/13/2023 8:47 AM EST Type 2 diabetes mellitus without complication, without long-term current use of insulin (HCC) documented in this encounter Results * (ABNORMAL) CBC (10/13/2023 8:47 AM EST) [...] ORDERABLES Final Res ult [facility] [address] [facility] , [place] [address] * LIPID PANEL REFLEX (10/13/2023 8:47 AM EST) Pathologist [facility] Cholesterol 146 <200 mg/dL 10/13/2023 3:34 PM EST [facility] Comment: < 200 ?Desirable 200 - 239 ? Borderline High >= 240 ?High Triglyceride 48 <150 mg/dL 10/13/2023 3:34 PM EST [facility] Comment: < 150 ? Normal 150 - 199 ?Borderline High 200 - 499 ?High ??>= 500 ? Very High HDL 56 >=40 mg/dL 10/13/2023 3:34 PM EST [facility] Comment: ??> 60 ?Optimal 40 - 60 ?Acceptable ?? < 40 ?Low LDL Calculated 79 <100 mg/dL 10/13/2023 3:34 PM EST [facility] Non-HDL-C Calculated 90 <=129 mg/dL 10/13/2023 3:34 PM EST [facility] Comment: <130 ?Desirable 130-159 Above Desirable 160-189 Borderline High 190-219 High >= 220 ??Very High Fasting Specimen? Yes None 023 3:34 PM EST [facility] Blood VENOUS BLOOD / Unknown Venipuncture / Unknown 10/13/2023 8:47 AM EST 10/13/2023 8:47 AM EST us Dora Hernandez MD CHEMISTRY ORDERABLES Final Resu lt [facility] [address] [facility] , [place] [address] [facility] [address] [place] [address] * (ABNORMAL) COMPREHENSIVE METABOLIC PANEL (10/13/2023 8:47 AM EST) [facility] Sodium 141 136 - 145 mmol/L 10/13/2023 [...] mL/min/1.7 3 m2 10/13/2023 3:34 PM EST [facility] Comment:Estimated GFR was ca lculated using the CKD-EPIcr (2020) equation refit without race. The equation is recommended by the National Kidney Foundation - [employer] [employer] of Nephrology Task Force. Blood VENOUS BLOOD / Unknown Venipuncture / Unknown 10/13/2023 8:47 AM EST 10/13/2023 8:47 AM EST us Dora Hernandez MD CHEMISTRY ORDERABLES Final Resu lt [facility] [address] [facility], [address] [place] [id number] [facility] [address] [place] [address] documented in this encounter Visit Diagnoses Diagnosis Type 2 diabetes mellitus without complication, without long-term current use of insulin (HCC) documented in this encounter Additional Health Concerns Assessment Noted Time A fall risk assessment has been complete d for the patient 10/07/2023 9:52 AM EST documented as of this encounter Care Teams Invisible Braces Orthodontist Relationship Specialty Start Date End Date Dora Hernandez MD [address] [facility] [place] [address] PCP - General Family Medicine 12/24/15 documented as of this encounter
--- OUTSIDE RECORDS SUMMARY | 2024-09-12 12:42 | XMS_ITS | Encounter Summary ---
Author Organization [place] [address] Care Team Providers Care Spindraw Operator Name Role Phone Dora Hernandez MD Primary Care Provider [phone] Reason for Referral * Ultrasound (Routine) - Pending Review Specialty Diagnoses / Procedures Referred By Contac t Referred To Contact Radiology Diagnoses Retention of urine, unspecified Flaccid neuropathic bladder, not elsewhere classified Procedures US RENAL AND BLADDER Dani Levine MD [address] [facility] [employer] [address] [place] [address] Phone: tel: fax: Referral ID Status Reason Start Date Expiration Date V isits Requested Visits Authorized [id number] Pending Review 06/13/2024 06/13/2025 1 1 Reason for Visit * Ultrasound (Routine) - Pending Review Specialty Diagnoses / Procedures Referred By Hal thompson Referred To Contact Radiology Diagnoses Retention of urine, unspecified Flaccid neuropathic bladder, not elsewhere classified Procedures US RENAL AND BLADDER Dani Levine MD [address] [facility] [employer] [place] [address] Phone: tel: fax: Referral ID Status Reason Start Date Expiration Date V isits Requested Visits Authorized [id number] Pending Review 06/13/2024 06/13/2025 1 1 Encounter Details Date Type Department Care Team (Latest Contact Info) Description 06/14/2024 10:43 AM EDT - 06/14/2024 11:59 PM EDT Hospital Encounter [facility] Ul[facility]ound [address] [facility] [place] [address] Dani Levine MD [address] [facility] [address] [place] [address] Retention of urine, unspecified; Flaccid neuropathic bladder, not elsewhere classified Discharge Disposition: Home or Self Care Social [...] No 10/07/2023 9:52 AM CODY Partida Kevyn michaelbhavana VARGHESE Nix documented in this encounter Medications at Time of Discharge diclofenac (VOLTAREN) 1 % Top GelIndications:Prima ry osteoarthritis of both knees Apply 2 g topically 4 times daily. 300 g 2 03/31/2023 ezetimibe (ZETIA) 10 mg Oral Tablet TAKE 1 TABLET BY MOUTH DAILY 90 Tablet 3 11/30/2023 fluticasone propionate (FLONASE) 50 mcg/actuation Nasl [place], SuspensionIndication s:Seasonal allergic rhinitis, unspecified trigger USE 2 SPRAYS NASALLY EVERY DAY 48 g 3 01/12/2024 gabapentin (NEURONTIN) 100 mg Oral CapsuleIndications:P eripheral polyneuropathy Take 2 caps in AM and 3 caps PM. Total 5 caps a day. 150 Capsule 5 04/24/2024 LORazepam (ATIVAN) 0.5 mg Oral TabletIndications:An xiety disorder, unspecified type Take 1 Tablet by mouth 2 times daily as needed for Anxiety. 30 Tablet 2 04/05/2024 metoprolol succinate ER (TOPROL-XL) 100 mg Oral Tablet Sustained Release 24 hrIndications:Essent ial hypertension Take 0.5 Tablets by mouth daily. 04/05/2024 PSYLLIUM HUSK, ASPARTAME, ORAL Take by mouth. valsartan-hydrochlor othiazide (DIOVAN-HCT) 320-25 mg Oral Tablet 1 Tablet. 03/31/2024 XARELTO 20 mg Oral Tablet 08/09/2023 documented as of this encounter Discharge Disposition [...] unspecified Flaccid neuropathic bladder, not elsewhere classified documented in this encounter Results * US RENAL AND BLADDER (06/14/2024 [...] AM ?? 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 COMPARISON: ??None. PROCEDURE COMMENTS: Routine sonographic evaluation of the kidneys and bladder with customer care representative images and chemical production engineer notes sent to PACS for radiologist review. 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 COMPARISON: None. PROCEDURE COMMENTS: Routine sonographic evaluation of the kidneys andbladder with customer care representative images and chemical production engineer notes sent to PACS forradiologist review. FINDINGS: [...] please contactthe office of the ordering clinician. Dani Levine MD [facility] ORDERABLES Final Resu lt documented in this encounter Visit Diagnoses Diagnosis Retention of urine, unspecified Flaccid neuropathic bladder, not elsewhere classified documented in this encounter Additional Health Concerns Assessment Noted Time A fall risk assessment has been complete d for the patient 10/07/2023 9:52 AM EST documented as of this encounter Care Teams Spindraw Operator Relationship Specialty Start Date End Date Dora Hernandez MD [address] [place] [address] PCP - General Family Medicine 12/24/15 documented as of this encounter
--- OUTSIDE RECORDS SUMMARY | 2024-09-12 12:43 | XMS_ITS | Encounter Summary ---
Author Organization [place] [address] Care Team Providers Care Ball Truing Machine Operator Name Role Phone Dora Hernandez MD Primary Care Provider [phone] Reason for Visit * Reason Onset Date Comments Results 11/06/2022 Encounter Details Date Type Department Care Team (Late st Contact Info) Description 11/06/2022 Telephone [facility] [address] [place] [address] Dora Hernandez MD [address] [place] [address] Results Social History Tobacco Use Types Packs/Day Years [...] on file Sexual Orientation Not on file COVID-19 Exposure Response Date Recorded In the last 10 days, have yo u been in contact with someone who was confirmed or suspected to have Coronavirus/COVID-19? No / Unsure 12/03/2022 10:47 AM EST documented as of this encounter Functional Status * Is the person deaf or does he/she have serious difficulty hearing? Answer Date of Assessment Author Yes 09/29/2022 10:06 AM CODY Partida Blessing VARGHESE Steen * Is the person blind or does he/she have serious difficulty seeing even when wearing glasses? Answer Date of Assessment Author No 09/29/2022 10:06 AM CODY Partida Blessing VARGHESE Steen * Does this person have serious difficulty walking or climbing stairs? Answer Date of Assessment Author No 09/29/2022 10:06 AM CODY Partida Blessing VARGHESE Steen * Does this person have difficulty dressing or bathing? Answer Date of Assessment Author No 09/29/2022 10:06 AM CODY Partida Blessing VARGHESE Steen * Because of a physical, mental or emotional condition, does this person have difficulty doing errands alone such as visiting a doctor's office or shopping? Answer Date of Assessment Author No 09/29/2022 10:06 AM CODY Partida Blessing VARGHESE Steen documented as of this encounter Mental Status * Because of a physical, mental or emotional condition, does this person have serious difficulty concentrating, remembering or making decisions? Answer Entry Date Author No 09/29/2022 10:06 AM CODY Partida Blessing VARGHESE Steen documented in this encounter Miscellaneous Notes * Telephone Encounter - Dora Hernandez MD - 11/06/2022 9:41 AM EST Normal results. I called and LM. Await CB. * Telephone Encounter - Reyes Melo COA - 11/06/2022 8:23 AM EST Test Result(s) Purpose of call: spouse seeking results Type of test: Lab Date of test: 11/05/22 Who ordered the test: Dora Hernandez MD Where was test performed: Other [facility] Additional Notes: Pt spouse states pt has appt with urology 11/13/22. Spouse states provider was suppose to call urology dept and see if pt could get a sooner appt. Please advise documented in this encounter Plan of Treatment [...] documented as of this encounter Care Teams Ball Truing Machine Operator Relationship Specialty Start Date End Date Dora Hernandez MD [address] [place] [address] PCP - General Family Medicine 12/24/15 documented as of this encounter
--- OUTSIDE RECORDS SUMMARY | 2024-09-12 12:43 | XMS_ITS | Encounter Summary ---
Author Organization [place] [address] Care Team Providers Care Conflicts Analyst Name Role Phone Dora Hernandez MD Primary Care Provider [phone] Reason for Referral * MRI/CAT Scan (Routine) - Closed Specialty Diagnoses / Procedures Referred By Contac t Referred To Contact Radiology Diagnoses Peripheral polyneuropathy Leg weakness, bilateral Procedures MRI LUMBAR SPINE WO CONTRAST Dora Hernandez MD [address] [place] [address] Phone: tel: fax: [facility] [address] [place] [address] Phone: tel: Referral ID Status Reason Start Date Expiration Date Visits Re quested Visits Authorized [id number] Closed 12/16/2022 12/16/2023 1 1 Reason for Visit * MRI/CAT Scan (Routine) - Closed Specialty Diagnoses / Procedures Referred By Contac t Referred To Contact Radiology Diagnoses Peripheral polyneuropathy Leg weakness, bilateral Procedures MRI LUMBAR SPINE WO CONTRAST Dora Hernandez MD [address] [place] [address] Phone: tel: fax: [facility] [address] [place] [address] Phone: tel: Referral ID Status Reason Start Date Expiration Date Visits Re quested Visits Authorized [id number] Closed 12/16/2022 12/16/2023 1 1 Encounter Details Date Type Department Care Team (Latest Contact Info) Description 01/08/2023 9:34 AM EDT - 01/08/2023 11:59 PM EDT Hospital Encounter [facility] [address] [place] [address] Dora Hernandez MD [address] [facility] [place] [address] Peripheral polyneuropathy; Leg weakness, bilateral Discharge Disposition: Home or Self Care Social [...] suspected to have Coronavirus/COVID-19? No / Unsure 01/08/2023 9:31 AM EDT documented as of this encounter Functional Status [...] this encounter Medications at Time of Discharge ezetimibe (ZETIA) 10 mg Oral Tablet TAKE 1 TABLET BY MOUTH DAILY 90 Tablet 11/11/2022 3 fluticasone propionate (FLONASE) 50 mcg/actuation Nasl [place], SuspensionIndication s:Seasonal allergic rhinitis, unspecified trigger USE 2 SPRAYS NASALLY EVERY DAY 48 g 08/28/2022 3 gabapentin (NEURONTIN) 100 mg Oral CapsuleIndications:P eripheral polyneuropathy Take 2 Capsules by mouth 2 times daily. 120 Capsule 4 09/29/2022 3 losartan (COZAAR) 50 mg Oral TabletIndications:Es sential hypertension TAKE 1 TABLET EVERY DAY Strength: 50 mg 90 Tablet 11/17/2022 3 documented as of this encounter Discharge Disposition Disposition Code Departure Means Destination Home or Self Care documented in this encounter Progress Notes * Petra Partida CCMA - 01/08/2023 10:00 AM EDT noted. documented in this encounter Plan of Treatment [...] Procedure Name Priority Date/Time Associated Diagnosis Comments MRI LUMBAR SPINE WO CONTRAST Routine 01/08/2023 10:36 AM EDT Peripheral polyneuropathy Leg weakness, bilateral documented in this encounter Results * MRI LUMBAR SPINE WO CONTRAST (01/08/2023 [...] ??01/08/2023 10:36 AM ?? CLINICAL HISTORY: ??G62.9-Polyneuropathy, lwmknxaecjz-DIT-15-CM R29.898-Other symptoms and signs involving the musculoskeletal euxtyq-WDH-89-CM. COMPARISON: ??CT abdomen pelvis April 14, 2022 [...] CONTRAST, 01/08/2023 10:36 AM CLINICAL HISTORY: G62.9-Polyneuropathy, publgbuagqm-IMW-40-CM R29.898-Other symptoms and signs involving the smrqsrputqjmmgrmxdttj-SWZ-17-CM. COMPARISON: CT abdomen pelvis April 14, 2022 [...] of the ordering clinician. Dora Hernandez MD [facility] ORDERABLES Final Result documented in this encounter Visit Diagnoses Diagnosis Peripheral polyneuropathy Unspecified hereditary and idiopathic peripheral neuropathy Leg weakness, bilateral Other musculoskeletal symptoms referable to limbs documented in this encounter Additional Health Concerns Assessment Noted Time A fall risk assessment has been complete d for the patient 09/29/2022 10:09 AM EST documented as of this encounter Care Teams Conflicts Analyst Relationship Specialty Start Date End Date Dora Hernandez MD [address] [facility] [address] [place] [address] PCP - General Family Medicine 12/24/15 documented as of this encounter
--- OUTSIDE RECORDS SUMMARY | 2024-09-12 12:43 | XMS_ITS | Encounter Summary ---
Author Organization [facility] [place] [address] Care Team Providers Care Um Rn Name Role Phone Dora Hernandez MD Primary Care Provider [phone] Encounter Details Date Type Department Care Team (Latest Contact Info) Description 01/08/2023 Travel Social History Tobacco Use Types Packs/Day [...] Blessing Etienne CCMA documented in this encounter Plan of Treatment [...] documented as of this encounter Care Teams Um Rn Relationship Specialty Start Date End Date Dora Hernandez MD [address] [place] [address] PCP - General Family Medicine 12/24/15 documented as of this encounter
--- OUTSIDE RECORDS SUMMARY | 2024-09-12 12:43 | XMS_ITS | Encounter Summary ---
Author Organization [place] [address] Care Team Providers Care Key Punch Teacher Name Role Phone Dora Hernandez MD Primary Care Provider [phone] Reason for Visit * Reason Comments Medication Refill Encounter Details Date Type Department Care Team (Late st Contact Info) Description 11/11/2022 Refill [facility] [address] [facility] [place] [address] Dora Hernandez MD [address] [place] [address] Medication Refill Social History Tobacco [...] TABLET BY MOUTH DAILY 90 Tablet 11/11/2022 02/23/2023 documented in this encounter Plan of Treatment Not on file documented as of this encounter Goals Goal Patient Goal Type Associated Problems Recent Progress Patient-Stated? Author Blood Pressure < 140/90 Blood Pressure 110/78(2023 11:26 AM EDT) Ember Keenan, ASHLEY Maintain a healthy diet, exercise regularly and maintain an ideal body weight General No Kim Solis RMA Maintain a healthy diet, exercise regularly and maintain an ideal body weight General No Aurelia Saldana RMA Stay Tobacco Free Lifestyle No Kim Solis RMA documented as of this encounter Visit Diagnoses Not on filedocumented in this encounter Discontinued Medications Medication Sig Discontinue Reason Start Date End Da te ezetimibe (ZETIA) 10 mg Oral Tablet TAKE 1 TABLET BY MOUTH DAILY 08/10/2022 11/11/2022 documented as of this encounter Additional Health Concerns Assessment Noted Time A fall risk assessment has been complete d for the patient 09/29/2022 10:09 AM EST documented as of this encounter Care Teams Key Punch Teacher Relationship Specialty Start Date End Date Dora Hernandez MD [address] [facility] [address] [place] [id number] PCP - General Family Medicine 12/24/15 documented as of this encounter
--- OUTSIDE RECORDS SUMMARY | 2024-09-12 12:43 | XMS_ITS | Encounter Summary ---
Author Organization [facility] [place] [address] Care Team Providers Care Assistant Teaching Professor Name Role Phone Dora Hernandez MD Primary Care Provider [phone] Reason for Visit * Reason Comments Medication Refill Encounter Details Date Type Department Care Team (Late st Contact Info) Description 05/26/2023 Refill [facility] [address] [facility] [place] [address] Dora Hernandez MD [address] [place] [address] Medication Refill Social History Tobacco [...] Assessment Author No 09/29/2022 10:06 AM CODY Blessing aPrtida CCMA * Because of a physical, mental or emotional condition, does this person have difficulty doing errands alone such as visiting a doctor's office or shopping? Answer Date of Assessment Author No 09/29/2022 10:06 AM CODY Blessing Partida CCMA documented as of this encounter Mental [...] needed for Anxiety. 30 Tablet 2 05/26/2023 11/30/2023 documented in this encounter Miscellaneous Notes * Telephone Encounter - Petra Partida CCMA - 05/26/2023 4:57 PM EDT DESTINEE: 03/26/2023 CSTA-12/01/16 BENOZ-12/01/16 SOAPP-12/01/16 CYNDIE: 03/31/2023 NOV: 10/07/2023 LAST FILLED: 02/25/2023 #30 + 0 refills documented in this encounter Plan of Treatment [...] Discontinue Reason Start Date End Da te LORazepam (ATIVAN) 0.5 mg Oral TabletIndications:Anxiety disorder, unspecified type Take 1 Tablet by mouth 2 times daily as needed for Anxiety. 02/25/2023 05/26/2023 documented as of this encounter Additional Health Concerns Assessment Noted Time A fall risk assessment has been complete d for the patient 09/29/2022 10:09 AM EST documented as of this encounter Care Teams Assistant Teaching Professor Relationship Specialty Start Date End Date Dora Hernandez MD [address] [facility] [place] [id number] PCP - General Family Medicine 12/24/15 documented as of this encounter
--- OUTSIDE RECORDS SUMMARY | 2024-09-12 12:43 | XMS_ITS | Encounter Summary ---
Author Organization [place] [address] Care Team Providers Care Retail Shift Manager Name Role Phone Dora Hernandez MD Primary Care Provider [phone] Reason for Referral * Ultrasound (Routine) - Closed Specialty Diagnoses / Procedures Referred By Hal t Referred To Contact Radiology Diagnoses Retention of urine, unspecified Frequency of micturition Gross hematuria Procedures US RENAL AND BLADDER Dani Levine MD [address] [facility] [address] [place] [address] Phone: tel: fax: Referral ID Status Reason Start Date Expiration Date Visits Re quested Visits Authorized [id number] Closed 12/22/2022 12/22/2023 1 1 Reason for Visit * Ultrasound (Routine) - Closed Specialty Diagnoses / Procedures Referred By Hal thompson Referred To Contact Radiology Diagnoses Retention of urine, unspecified Frequency of micturition Gross hematuria Procedures US RENAL AND BLADDER Dani Levine MD [address] [place] [address] Phone: tel: fax: Referral ID Status Reason Start Date Expiration Date Visits Re quested Visits Authorized [id number] Closed 12/22/2022 12/22/2023 1 1 Encounter Details Date Type Department Care Team (Latest Contact Info) Description 12/30/2022 10:52 AM EST - 12/30/2022 11:59 PM EST Hospital Encounter [facility] [address] [place] [address] Dani Levine MD [address] [facility] [address] [place] [address] Retention of urine, unspecified; Frequency of micturition; Gross hematuria Discharge Disposition: Home or Self Care Social [...] Entry Date Author No 09/29/2022 10:06 AM EST Blessing Partida CCMA documented in this encounter Medications at Time of Discharge amLODIPine (NORVASC) 10 mg Oral TabletIndications:Es sential hypertension TAKE 1 TABLET EVERY DAY 90 Tablet 2 02/27/2022 3 ezetimibe (ZETIA) 10 mg Oral Tablet TAKE 1 TABLET BY MOUTH DAILY 90 Tablet 11/11/2022 3 fluticasone propionate (FLONASE) 50 mcg/actuation Nasl [place], SuspensionIndication s:Seasonal allergic rhinitis, unspecified trigger USE [...] Diagnosis Comments US RENAL AND BLADDER Routine 12/30/2022 11:26 AM EST Retention of urine, unspecified Frequency of micturition Gross hematuria documented in this encounter Results * US RENAL AND BLADDER (12/30/2022 11:26 AM EST) Anatomical Region Laterality Modality Abdomen, Pelvis Ultrasound 12/30/2022 11:2 6 AM EST Impressions 12/30/2022 12:19 PM EST No hydronephrosis. - Note: Radiology results need to be interpreted within a comprehensive clinical context. ??If you have questions about the radiology report, please contact the office of the ordering clinician. Narrative 12/30/2022 12:19 PM EST US KIDNEYS AND BLADDER, ??12/30/2022 11:26 AM ?? CLINICAL HISTORY: ??R33.9-Retention of urine, ohblyxkrqkb-ASC-84-CM R35.0-Frequency of xhqydgkbbue-XBV-50-CM R31.0-Gross dyyxuxunh-PAB-18-CM. COMPARISON: ??04/14/2022 PROCEDURE COMMENTS: Routine sonographic evaluation of the kidneys and bladder with outbound call center representative images and activity therapy specialist notes sent to PACS for radiologist review. FINDINGS: ?? RIGHT: 12.5 x 6.2 x 5.9 cm. ??No hydronephrosis, solid-appearing mass, or shadowing stone. LEFT: ??14.1 x 6.8 x 4.5 cm. ??No hydronephrosis, solid-appearing mass, or shadowing stone. PELVIS: ??Riggs in empty bladder. Prostate 4.3 x 3.8 x 5.5 cm Procedure Note Sd Hernandez MD - 12/30/2022 US KIDNEYS AND BLADDER, 12/30/2022 11:26 AM CLINICAL HISTORY: R33.9-Retention of urine, hklrqzftzhs-MHX-48-CM R35.0-Frequency of nzyxawqiuzn-SLH-75-CM R31.0-Gross nbhtlaqme-JDP-07-CM. COMPARISON: 04/14/2022 PROCEDURE COMMENTS: Routine sonographic evaluation of the kidneys andbladder with outbound call center representative images and activity therapy specialist notes sent to PACS forradiologist review. FINDINGS: RIGHT: 12.5 x 6.2 x 5.9 cm. No hydronephrosis, solid-appearing mass, or shadowing stone. LEFT: 14.1 x 6.8 x 4.5 cm. No hydronephrosis, solid-appearing mass, or shadowing stone. PELVIS: Riggs in empty bladder. Prostate 4.3 x 3.8 x 5.5 cm IMPRESSION: No hydronephrosis. - Note: Radiology results need to be interpreted within a comprehensiveclinical context. If you have questions about the radiology report, please contactthe office of the ordering clinician. us Dani Levine MD [facility] ORDERABLES Final Resu lt documented in this encounter Visit Diagnoses Diagnosis Retention of urine, unspecified Frequency of micturition Urinary frequency Gross hematuria documented in this encounter Additional Health Concerns Assessment Noted Time A fall risk assessment has been complete d for the patient 09/29/2022 10:09 AM EST documented as of this encounter Care Teams Retail Shift Manager Relationship Specialty Start Date End Date Dora Hernandez MD [address] [place] [phone] PCP - General Family Medicine 12/24/15 documented as of this encounter
--- OUTSIDE RECORDS SUMMARY | 2024-09-12 12:43 | XMS_ITS | Encounter Summary ---
Author Organization [place] [address] Care Team Providers Care Hat Cone Inspector Name Role Phone Dora Hernandez MD Primary Care Provider [phone] Reason for Visit * Reason Onset Date Comments Medication Refill 11/17/2022 Encounter Details Date Type Department Care Team (Late st Contact Info) Description 11/17/[address] [facility] [address] [place] [address] Petra Partida CCMA Medication Refill Social History Tobacco Use Types [...] Essential hypertension TAKE 1 TABLET EVERY DAY Strength: 50 mg 90 Tablet 11/17/2022 02/17/2023 documented in this encounter Plan of Treatment [...] Da te losartan (COZAAR) 50 mg Oral TabletIndications:Essen tial hypertension TAKE 1 TABLET EVERY DAY (MUST MAKE APPOINTMENT FOR FURTHER REFILLS) Reorder 06/09/2022 11/17/2022 documented as of this encounter Additional Health Concerns Assessment Noted Time A fall risk assessment has been complete d for the patient 09/29/2022 10:09 AM EST documented as of this encounter Care Teams Hat Cone Inspector Relationship Specialty Start Date End Date Dora Hernandez MD [address] [facility] [place] [place] [phone] PCP - General Family Medicine 12/24/15 documented as of this encounter
--- OUTSIDE RECORDS SUMMARY | 2024-09-12 12:43 | XMS_ITS | Encounter Summary ---
Author Organization [place] [address] Care Team Providers Care Senior Administrative Assistant Name Role Phone Dora Hernandez MD Primary Care Provider [phone] Reason for Visit * Reason Comments Medication Refill Encounter Details Date Type Department Care Team (Late st Contact Info) Description 10/06/2022 Refill [facility] [address] [facility] [place] [address] Dora Hernandez MD [address] [place] [address] Medication Refill Social History Tobacco [...] Refills Last Filled Start Date End Date tamsulosin (FLOMAX) 0.4 mg Oral CapsuleIndications :BPH without urinary obstruction Take 1 Capsule by mouth daily. TAKE 1 CAPSULE EVERY day 90 Capsule 10/07/2022 documented in this encounter Plan of Treatment [...] as of this encounter Visit Diagnoses Diagnosis BPH without urinary obstruction Hypertrophy of prostate without urinary obstruction and other lower urinary tract symptoms (LUTS) documented in this encounter Discontinued Medications Medication Sig Discontinue Reason Start Date End Da te tamsulosin (FLOMAX) 0.4 mg Oral CapsuleIndications:BPH without urinary obstruction TAKE 1 CAPSULE EVERY NIGHT 02/24/2022 10/07/2022 documented as of this encounter Additional Health Concerns Assessment Noted Time A fall risk assessment has been complete d for the patient 09/29/2022 10:09 AM EST documented as of this encounter Care Teams Senior Administrative Assistant Relationship Specialty Start Date End Date Dora Hernandez MD [address] [facility] [place] [address] PCP - General Family Medicine 12/24/15 documented as of this encounter
--- OUTSIDE RECORDS SUMMARY | 2024-09-12 12:43 | XMS_ITS | Encounter Summary ---
Author Organization [place] [address] Care Team Providers Care Lead Military Analyst Name Role Phone Dora Hernandez MD Primary Care Provider [phone] Reason for Visit * Reason Comments Medication Refill Encounter Details Date Type Department Care Team (Late st Contact Info) Description 03/26/2023 Refill [facility] [address] [facility] [address] Dora Hernandez MD [address] [place] [address] Medication Refill Social History Tobacco [...] Assessment Author No 09/29/2022 10:06 AM Blessing tEienne CCMA documented as of this encounter Mental [...] 2 times daily. 120 Capsule 4 03/26/2023 documented in this encounter Miscellaneous Notes * Telephone Encounter - Petra Partida CCMA - 03/26/2023 11:14 AM EDT DESTINEE: 03/26/2023 CSTA-12/01/16 BENOZ-12/01/16 SOAPP-12/01/16 CYNDIE: 02/25/2023 NOV: 03/31/2023 LAST FILLED: 02/25/2023 #120 + 0 refills documented in this encounter [...] 2 Capsules by mouth 2 times daily. 09/29/2022 03/26/2023 documented as of this encounter Additional Health Concerns Assessment Noted Time A fall risk assessment has been complete d for the patient 09/29/2022 10:09 AM EST documented as of this encounter Care Teams Lead Military Analyst Relationship Specialty Start Date End Date Dora Hernandez MD [address] [place] [address] PCP - General Family Medicine 12/24/15 documented as of this encounter
--- OUTSIDE RECORDS SUMMARY | 2024-09-12 12:43 | XMS_ITS | Encounter Summary ---
Author Organization [place] [address] Care Team Providers Care Assistant Professor Of Sociology Name Role Phone Dora Hernandez MD Primary Care Provider [phone] Reason for Visit * Reason Onset Date Comments Follow-up 12/14/2022 Encounter Details Date Type Department Care Team (Late st Contact Info) Description 12/14/2022 Telephone [facility] [address] [place] [address] Dora Hernandez MD [address] [place] [address] Follow-up Social History Tobacco Use Types Packs/Day [...] Yes 09/29/2022 10:06 AM CODY Partida Blessing estrella Nix CCMMalcolm * Is the person blind or does he/she have serious difficulty seeing even when wearing glasses? Answer Date of Assessment Author No 09/29/2022 10:06 AM CODY Partida Blessing estrella Nix CCMMalcolm * Does this person have serious difficulty walking or climbing stairs? Answer Date of Assessment Author No 09/29/2022 10:06 AM CODY Partida Blessing VARGHESE Steen * Does this person have difficulty dressing or bathing? Answer Date of Assessment Author No 09/29/2022 10:06 AM CODY Partida Blessing estrella Nix CCMMalcolm * Because of a physical, mental or [...] * Telephone Encounter - Hieu Vasquez - 12/14/2022 5:08 PM EST Scheduled 12/16 * Telephone Encounter - Dora Hernandez MD - 12/14/2022 4:58 PM EST I received a msg from Dr Levine. He suspects neurogenic atonic bladder. He said pt mentioned leg weakness. Pls call pt to sched f/u appt. Thanks. documented in this encounter Plan of Treatment [...] as of this encounter Care Teams Assistant Professor Of Sociology Relationship Specialty Start Date End Date Dora Hernandez MD [address] [facility] [place] [phone] PCP - General Family Medicine 12/24/15 documented as of this encounter
--- OUTSIDE RECORDS SUMMARY | 2024-09-12 12:43 | XMS_ITS | Encounter Summary ---
Author Organization [place] [address] Care Team Providers Care Feather Separator Name Role Phone Dora Hernandez MD Primary Care Provider [phone] Reason for Visit * Reason Comments Medication Refill Encounter Details Date Type Department Care Team (Late st Contact Info) Description 02/17/2023 Refill [facility] [address] [facility] [place] [address] Dora Hernandez MD [address] [place] [address] Medication Refill Social History Tobacco [...] Date fluticasone propionate (FLONASE) 50 mcg/actuation Nasl [place], SuspensionIndicati ons:Seasonal allergic rhinitis, unspecified trigger USE 2 SPRAYS NASALLY EVERY DAY 48 g 02/18/2023 documented in this encounter Plan of Treatment [...] te fluticasone propionate (FLONASE) 50 mcg/actuation Nasl [place], SuspensionIndications:Se asonal allergic rhinitis, unspecified trigger USE 2 SPRAYS NASALLY EVERY DAY 08/28/2022 02/18/2023 documented as of this encounter Additional Health Concerns Assessment Noted Time A fall risk assessment has been complete d for the patient 09/29/2022 10:09 AM EST documented as of this encounter Care Teams Feather Separator Relationship Specialty Start Date End Date Dora Hernandez MD [address] [facility] [place] [phone] PCP - General Family Medicine 12/24/15 documented as of this encounter
--- OUTSIDE RECORDS SUMMARY | 2024-09-12 12:43 | XMS_ITS | Encounter Summary ---
Author Organization [place] [address] Care Team Providers Care Crime Data Specialist Name Role Phone Dora Hernandez MD Primary Care Provider [phone] Reason for Visit * Reason Comments Medication Refill Encounter Details Date Type Department Care Team (Late st Contact Info) Description 02/15/2023 Refill [facility] [address] [facility] [place] [address] Dora Hernandez MD [address] [place] [address] Medication Refill Social History Tobacco [...] 09/29/2022 10:06 AM CODY PartidaBlessing CCMA * Does this person have difficulty [...] Date Author No 09/29/2022 10:06 AM CODY PartidaBlessing CCMA documented in this encounter Ordered Prescriptions Prescription Sig Dispense Quantity Refills Last Filled Start Date End Date losartan (COZAAR) 50 mg Oral TabletIndications: Essential hypertension TAKE 1 TABLET EVERY DAY 90 Tablet 02/17/2023 07/27/2023 documented in this encounter Miscellaneous Notes * Telephone Encounter - Kaylin Neely CPhT - 02/17/2023 11:13 AM EDT losartan- Medication Refill Protocol passed. Jesse Action: Approved 90-day supply with sufficient refills to cover patient until scheduled appointment on 02/25/2023, and not exceeding 90 days past that date. documented in this encounter Plan of Treatment [...] Stay Tobacco Free Lifestyle No Kim Solis Edil[place], Malcolm documented as of this encounter Visit Diagnoses Diagnosis Essential hypertension Unspecified essential hypertension documented in this encounter Discontinued Medications Medication Sig Discontinue Reason Start Date End Da te losartan (COZAAR) 50 mg Oral TabletIndications:Aljeandra william hypertension TAKE 1 TABLET EVERY DAY Strength: 50 mg 11/17/2022 02/17/2023 documented as of this encounter Additional Health Concerns Assessment Noted Time A fall risk assessment has been complete d for the patient 09/29/2022 10:09 AM EST documented as of this encounter Care Teams Crime Data Specialist Relationship Specialty Start Date End Date Dora Hernandez MD [address] [facility] [place] [address] PCP - General Family Medicine 12/24/15 documented as of this encounter
--- OUTSIDE RECORDS SUMMARY | 2024-09-12 12:43 | XMS_ITS | Encounter Summary ---
Author Organization [facility] [address] Care Team Providers Care Sales Planning Coordinator Name Role Phone Dora Hernandez MD Primary Care Provider [phone] Encounter Details Date Type Department Care Team (Latest Contact Info) Description 12/03/2022 Travel Social History Tobacco Use Types Packs/Day [...] documented as of this encounter Care Teams Sales Planning Coordinator Relationship Specialty Start Date End Date Dora Hernandez MD [address] [place] [phone] PCP - General Family Medicine 12/24/15 documented as of this encounter
--- OUTSIDE RECORDS SUMMARY | 2024-09-12 12:43 | XMS_ITS | Encounter Summary ---
Author Organization [place] [address] Care Team Providers Care Order Packer Or Packager Name Role Phone Dora Hernandez MD Primary Care Provider [phone] Reason for Visit * Reason Onset Date Comments Results 01/18/2023 Encounter Details Date Type Department Care Team (Late st Contact Info) Description 01/18/2023 Telephone [facility] [address] [employer] [address] Doar Hernandez MD [address] [place] [address] Results Social History Tobacco Use [...] Blessing Etienne CCMA documented in this encounter Miscellaneous Notes * Telephone Encounter - Petra Partida CCMA - 01/18/2023 9:50 AM EDT noted in results notes * Telephone Encounter - Mary Kay Gunn CCMA - 01/18/2023 9:27 AM EDT Images from the original note were not included. Patient Calling for Results Patient called for results on Imaging Which Provider ordered the test? David Date of test: 01/09/12 Advised patient of: abnormal result. Patient Instructions/ Questions: Please call patient to discuss results more detailed per request Sp[facility] Center # given Other: Please put in the patient results note that is aware of the following results Dora Hernandez MD 01/15/2023 12:35 PM EDT I called and LM. Await CB. If pt calls back: Mild disc bulge (T11-12 and T12-L1); Lumbar degenerative changes ??(multilevel. Advance on L4-L5). No acute spine fracture. Spine Ortho consult recommended. documented in this encounter Plan of Treatment [...] documented as of this encounter Care Teams Order Packer Or Packager Relationship Specialty Start Date End Date Dora Hernandez MD [address] [facility] [place] [phone] PCP - General Family Medicine 12/24/15 documented as of this encounter
--- OUTSIDE RECORDS SUMMARY | 2024-09-12 12:43 | XMS_ITS | Encounter Summary ---
Author Organization [place] [address] Care Team Providers Care International Representative Name Role Phone Dora Hernandez MD Primary Care Provider [phone] Encounter Details Date Type Department Care Team (Latest Contact Info) Description 12/03/2022 10:50 AM EST - 12/03/2022 11:59 PM EST Hospital Encounter [facility] [address] [id number] Urinary frequency (Primary Dx); Retention of urine, [...] of Assessment Author Yes 09/29/2022 10:06 AM EST Partida, H ayleigh N, CCMA * Is the person blind or [...] 3 fluticasone propionate (FLONASE) 50 mcg/actuation Nasl [place], SuspensionIndication s:Seasonal allergic rhinitis, unspecified trigger USE 2 SPRAYS NASALLY EVERY DAY 48 g 08/28/2022 3 gabapentin (NEURONTIN) 100 mg Oral CapsuleIndications:P eripheral polyneuropathy Take 2 Capsules by mouth 2 times daily. 120 Capsule 4 09/29/2022 3 losartan (COZAAR) 50 mg Oral TabletIndications:Es sential hypertension TAKE 1 TABLET EVERY DAY Strength: 50 mg 90 Tablet 11/17/2022 3 metoprolol succinate ER (TOPROL-XL) 100 mg Oral Tablet Sustained Release 24 hr TAKE 1 TABLET EVERY DAY 90 Tablet 07/10/2022 3 documented as of this encounter Discharge [...] Procedure Name Priority Date/Time Associated Diagnosis Comments BLOOD UREA NITROGEN Callback 12/03/2022 1 0:52 AM EST Urinary frequency Retention of urine, unspecified Enlarged prostate with urinary obstruction Gross hematuria CREATININE Callback 12/03/2022 10:52 AM EST Urinary frequency Retention of urine, unspecified Enlarged prostate with urinary obstruction Gross hematuria documented in this encounter Results * BLOOD UREA NITROGEN (12/03/2022 10:52 AM EST) BUN 21 8 - 23 mg/dL 12/03/2022 3:22 PM EST [employer] Blood VENOUS BLOOD / Unknown Venipuncture / Unknown 12/03/2022 10:52 AM EST 12/03/2022 10:52 AM EST us aDni Levine MD CHEMISTRY ORDERABLES Final R esult [employer] [address] [facility] , [place] [address] * CREATININE (12/03/2022 10:52 AM EST) Creatinine 1.21 0.67 - 1.30 mg/dL 12/03/2022 3:22 PM EST [employer] eGFR (CKD-EPIcr 2020) 61 >=60 mL/min/1.7 3 m2 12/03/2022 3:22 PM EST [facility] Comment:Estimated GFR was ca lculated using the CKD-EPIcr (2020) equation refit without race. The equation is recommended by the National Kidney Foundation - [place] [employer] Neph[employer] Task Force. Blood VENOUS BLOOD / Unknown Venipuncture / Unknown 12/03/2022 10:52 AM EST 12/03/2022 10:52 AM EST us Dani Levine MD CHEMISTRY ORDERABLES Final R esult [facility] [employer] [address] [facility] , [address] [place] [id number] [facility] [address] [place] [id number] documented in this encounter Visit Diagnoses Diagnosis Urinary frequency- Primary Retention of urine, unspecified Enlarged prostate with urinary obstruction Hypertrophy of prostate with urinary obstruction and other lower urinary tract symptoms (LUTS) Gross hematuria documented in this encounter Additional Health Concerns Assessment Noted Time A fall risk assessment has been complete d for the patient 09/29/2022 10:09 AM EST documented as of this encounter Care Teams International Representative Relationship Specialty Start Date End Date Dora Hernandez MD [address] [facility] [place] [address] PCP - General Family Medicine 12/24/15 documented as of this encounter
--- OUTSIDE RECORDS SUMMARY | 2024-09-12 12:43 | XMS_ITS | Encounter Summary ---
Author Organization [place] [address] Care Team Providers Care Role Player Name Role Phone Dora Hernandez MD Primary Care Provider [phone] Reason for Referral * Echo (Routine) - Pending Review Specialty Diagnoses / Procedures Referred By Contac t Referred To Contact Radiology Diagnoses Heart murmur Procedures EC ECHOCARDIOGRAM COMPLETE W DOPPLER AND COLOR FLOW MAPPING Dora Hernandez MD [address] [place] [address] Phone: tel: fax: Referral ID Status Reason Start Date Expiration Date V isits Requested Visits Authorized [id number] Pending Review 03/31/2023 03/31/2025 1 1 Reason for Visit * Reason Comments Follow-up Controlled Substance Monitoring gabapent in Encounter Details Date Type Department Care Team (Latest Contact Info) Description 03/31/2023 10:00 AM EDT Office Visit [facility] [address] [place] [address] Dora Hernandez MD [address] [place] [address] Lumbar degenerative disc disease (Primary Dx); Encounter for long-term (current) use of medications; Peripheral polyneuropathy; Essential hypertension; Pulmonary nodule, right; Obesity, Class I, BMI 30-34.9; Heart murmur; Enlarged prostate with urinary retention; Bilateral hearing loss, unspecified hearing loss type; Primary osteoarthritis of both knees; Situational anxiety Social History Tobacco Use Types Packs/Day Years Used Date Smoking Tobacco: Former Cigarettes 2 50 0 01/02/1966 - 01/03/2016 Pipe Smokeless Tobacco: Never Tobacco Cessation:Counseling Given: Not Answered Alcohol Use Standard Drinks/Week Comments Yes 0 [...] Sign Reading Time Taken Comments Blood Pressure 144/70 03/31/2023 9:53 AM EDT Pulse 71 03/31/2023 9:53 AM EDT Temperature 35.8 ??C (96.4 ??F) 03/31/2023 9:53 AM ED T Respiratory Rate - - Oxygen Saturation 98% 03/31/2023 9:53 AM EDT Inhaled Oxygen Concentration - - Weight 114.3 kg (252 lb) 03/31/2023 9:53 AM EDT Height 190.5 cm (6' 3 ) 03/31/2023 9:53 AM EDT Body Mass Index 31.5 03/31/2023 9:53 AM EDT documented in this encounter Functional [...] Refills Last Filled Start Date End Date diclofenac (VOLTAREN) 1 % Top GelIndications:Prima ry osteoarthritis of both knees Apply 2 g topically 4 times daily. 300 g 2 03/31/2023 metoprolol succinate (TOPROL-XL) 100 mg Oral Tablet Sustained Release 24 hrIndications:Essent ial hypertension Take 1 Tablet by mouth daily. 90 Tablet 03/31/2023 3 documented in this encounter Progress Notes * Dora Hernandez MD - 03/31/2023 10:00 AM EDT Assessment Diagnoses and all orders for this visit: Lumbar degenerative disc disease Encounter for long-term (current) use of medications - COMPLIANCE BENZODIAZEPINE PANEL QUANT ONLY, URINE; Future - COMPLIANCE GABAPENTIN/PREGABALIN, URINE; Future Peripheral polyneuropathy Essential hypertension - metoprolol succinate (TOPROL-XL) 100 mg Oral Tablet Sustained Release 24 hr; Take 1 Tablet by mouth daily. Dispense: 90 Tablet Pulmonary nodule, right Obesity, Class I, BMI 30-34.9 Heart murmur - EC ECHOCARDIOGRAM COMPLETE W DOPPLER AND COLOR FLOW MAPPING; Future Enlarged prostate with urinary retention - STABLE, MANAGED BY SPECIALIST Bilateral hearing loss, unspecified hearing loss type Primary osteoarthritis of both knees - diclofenac (VOLTAREN) 1 % Top Gel; Apply 2 g topically 4 times daily. Dispense: 300 g; Refill: 2 Situational anxiety PDMP reviewed - AE. Pt is not able to give sample for UDS today (emptied bladder via cath prior to appt). No red flags. He takes ativan prn - for doc appt and attending a meeting/function. Pt saw Dr Lake and advised him to go back on 100 mg BB a few weeks ago. He follows with Dr Lake - no rx. Continue to monitor BP/HR at home. If bradycardia recurs, stop BB and call MD - advised pt/. Need to sched Chest CT. Contact info given to pt again. New heart murmur - Echo. F/u in 6 months and prn. Progress Note: Vitals: 03/31/23 0953 BP: (!) 144/70 BP Location: Left arm Patient Position: Sitting Pulse: 71 Temp: 96.4 ??F (35.8 ??C) TempSrc: Temporal SpO2: 98% Weight: 252 lb (114.3 kg) Height: 6' 3 (1.905 m) SUBJECTIVE: Chief Complaint Patient presents with ??? Follow-up ??? Controlled Substance Monitoring gabapentin HPI: Hypertension: Home reporting of hypertension was [...] location(s) of the pain include: low back, knees. Pt is unable to describe pain. Functional limitations include: inability to perform most [...] controlled substance flow sheet has been reviewed. Are you currently taking your controlled medication regularly?: Yes (comment) When did you take your last dose?: this am Are you using any illegal drugs?: No Are you taking any controlled medications which are not prescribed by our practice?: No Have you taken any cough syrup recently?: No Review of Systems Respiratory: Negative for shortness of breath. Cardiovascular: Negative for chest pain. Neurological: Negative for dizziness and headaches. OBJECTIVE: Physical Exam Constitutional: Appearance: He is not ill-appearing or diaphoretic. Cardiovascular: Rate and Rhythm: Normal rate and regular rhythm. Heart sounds: Murmur heard. Pulmonary: Effort: Pulmonary effort is normal. Breath sounds: Normal breath sounds. Musculoskeletal: Comments: Varicose veins B LE. Trace bipedal edema Skin: Comments: Superficial small scabbed wound on anterior asp of L leg. 1 small grace angioma on R cheek. 1 small skin lesion on on R cheek - irritated from scratching - likely benign. Pt advised to observe and f/u prn. Neurological: Mental Status: He is alert. Psychiatric: Mood and Affect: Mood normal. Behavior: Behavior normal. documented in this encounter Miscellaneous Notes * Patient Instructions - Dora Hernandez MD - 03/31/2023 10:00 AM EDT Schedule chest CT and Echocardiogram - [phone] documented in this encounter Plan of Treatment Scheduled Orders Name Type Priority Associated Diagnoses Order Schedule EC ECHOCARDIOGRAM COMPLETE W DOPPLER AND COLOR FLOW MAPPING Imaging Cardiology Routine Heart murmur 1 Occurrences starting 03/31/2023 until 03/31/2025 documented as of this encounter Goals Goal [...] documented as of this encounter Results * (ABNORMAL) COMPLIANCE GABAPENTIN/PREGABALIN, URINE (05/03/2023 11:53 AM EDT) [facility] Gabapentin >2,000(H) Cutoff 50 ng/mL ng/mL 05/04/2023 9:45 AM EDT [facility] Comment:e.g, Neurontin Pregabalin <50 Cutoff 50 ng/mL ng/mL 05/04/2023 9:45 AM EDT [facility] Comment:Lyrica Urine Creatinine 29.5 mg/dL 05/04/20 9:45 AM EDT [facility] Comment: Greater than 20: Consistent with valid sample Greater than 2 but less than 20: Possible dilution Less than 2: Questionable valid sample Greater than 20: Consistent with valid sample Greater than 2 but less than 20: Possible dilution Less than 2: Questionable valid sample Urine URINE SPECIMEN COLLECTION / Unknown 05/03/2023 11:53 AM EDT 05/03/2023 11:53 AM EDT Narrative [facility] - 05/04/2023 9:45 AM EDT The absence of expected drug(s), and/or drug metabolite(s), may indicate non-compliance, diluted or adulterated urine, poor drug absorption, concentration of drug below the cut-off, timing of specimen collection relative to administration of drug, or limitations of testing. If results do not fit clinical expectations, please reach out to the Toxicology department at [phone]. Specimens are held for 7 days. This test was developed, and its performance characteristics determined by [facility] ([facility]). ??It has not been cleared or approved by the FDA. This test is used for clinical purposes. It should not be regarded as investigational or for research. [facility] is certified under the Clinical Laboratory Improvement Amendments (CLIA) as qualified to perform high complexity clinical laboratory testing. Dora Hernandez MD URINE ORDERABLES Final Result [facility], [facility] [address] , [place] [address] * COMPLIANCE BENZODIAZEPINE PANEL QUANT ONLY, URINE (05/03/2023 11:53 AM EDT) Medications Expected Ativan(T M) (lorazep am) 05/04/2023 9:45 AM EDT [facility], [facility] Alprazolam <8 Cutoff 8 ng/mL ng/mL 05/04/2023 9:45 AM EDT [facility], [facility] Comment:e.g, Xanax, Niravam alpha-Hydroxyalprazolam <25 Cutoff 2 5 ng/mL ng/mL 05/04/2023 9:45 AM EDT [facility], [facility] Comment:Metabolite of Alpraz olam Clonazepam <10 Cutoff 10 ng/mL ng/mL 05/04/2023 9:45 AM EDT [facility] Comment:e.g., Klonopin, Clon opin 7-Aminoclonazepam <25 Cutoff 25 ng/mL ng/mL 05/04/2023 9:45 AM EDT [facility] Comment:Metabolite of Clonaz epam Diazepam <10 Cutoff 10 ng/mL ng/mL 05/04/2023 9:45 AM EDT [facility] Comment:e.g, Valium, Diastat Nordiazepam <25 Cutoff 25 ng/mL ng/mL 05/04/2023 9:45 AM EDT [facility] Comment:Metabolite of Chlord iazepoxide(Librium), Clorazepate(Tranxene), Diazepam, Halazepam, (Alapryl), Prazepam(Centrax) Flunitrazepam <50 Cutoff 50 ng/mL ng/mL 05/04/2023 9:45 AM EDT [facility] Comment:e.g.,Rohypnol, Narco zep 7-Aminoflunitrazepam <50 Cutoff 50 ng/mL ng/mL 05/04/2023 9:45 AM EDT [facility] Comment:Metabolite of Flunit razepam Flurazepam <50 Cutoff 50 ng/mL ng/mL 05/04/2023 9:45 AM EDT [facility] Comment:e.g., Dalmane Hydroxyethylflurazepam <50 Cutoff 50 ng/mL ng/mL 05/04/2023 9:45 AM EDT [facility] Comment:Metabolite of Fluraz epam Lorazepam <50 Cutoff 50 ng/mL ng/mL 05/04/2023 9:45 AM EDT [facility] Comment:e.g., Ativan Lorazepam Glucuronide <50 Cutoff 50 ng/mL ng/mL 05/04/2023 9:45 AM EDT [facility] Comment:Metabolite of Loraze juan Midazolam <50 Cutoff [...] EDT [facility] Comment:Metabolite of Oxazep am Temazepam <50 Cutoff 50 ng/mL ng/mL 05/04/2023 9:45 AM EDT [facility] Comment:e.g., Restoril; also Metabolite of Diazepam Temazepam Glucuronide <50 Cutoff 50 ng/mL ng/mL 05/04/2023 9:45 AM EDT [facility] Comment:Metabolite of Temaze juan and Diazepam Triazolam <50 Cutoff 50 ng/mL ng/mL 05/04/2023 9:45 AM EDT [facility] Comment:e.g., Halcion alpha-hydroxytriazolam <50 Cutoff 50 ng/mL ng/mL 05/04/2023 9:45 AM EDT [facility] Comment:Metabolite of Triazo chavez Urine Creatinine 29.5 mg/dL 05/04/20 9:45 AM EDT [facility] Comment: Greater than 20: Consistent with valid sample Greater than 2 but less than 20: Possible dilution Less than 2: Questionable valid sample Urine URINE SPECIMEN COLLECTION / Unknown 05/03/2023 11:53 AM EDT 05/03/2023 11:53 AM EDT Narrative [facility] - 05/04/2023 9:45 AM EDT The absence of expected drug(s), and/or drug metabolite(s), may indicate non-compliance, diluted or adulterated urine, poor drug absorption, concentration of drug below the cut-off, timing of specimen collection relative to administration of drug, or limitations of testing. If results do not fit clinical expectations, please reach out to the Toxicology department at [phone]. Specimens are held for 7 days. This test was developed, and its performance characteristics determined by [facility] ([facility]). ??It has not been cleared or approved by the FDA. This test is used for clinical purposes. It should not be regarded as investigational or for research. [facility] is certified under the Clinical Laboratory Improvement Amendments (CLIA) as qualified to perform high complexity clinical laboratory testing. Dora Hernandez MD URINE ORDERABLES Final Result [facility] [employer] [facility] [address] , [address] [place] [id number] documented in this encounter Visit Diagnoses Diagnosis Lumbar degenerative disc disease- Primary Degeneration of lumbar or lumbosacral intervertebral disc Encounter for long-term (current) use of medications Encounter for long-term (current) use of other medications Peripheral polyneuropathy Unspecified hereditary and idiopathic peripheral neuropathy Essential hypertension Unspecified essential hypertension Pulmonary nodule, right Solitary pulmonary nodule Obesity, Class I, BMI 30-34.9 Obesity, unspecified Heart murmur Undiagnosed cardiac murmurs Enlarged prostate with urinary retention Hypertrophy of prostate with urinary obstruction and other lower urinary tract symptoms (LUTS) Bilateral hearing loss, unspecified hearing loss type Primary osteoarthritis of both knees Primary localized osteoarthrosis, lower leg Situational anxiety Other anxiety states documented in this encounter Discontinued Medications Medication Sig Discontinue Reason Start Date End Da te metoprolol succinate ER (TOPROL-XL) 50 mg Oral Tablet Sustained Release 24 hrIndications:Essential hypertension Take 1 Tablet by mouth daily. Reorder 02/25/2023 03/31/2023 diclofenac (VOLTAREN) 1 % Top Gel APPLY 2 GRAMS TOPICALLY 4 TIMES DAILY. Reorder 08/25/2019 03/31/2023 documented as of this encounter Orders Nursing Count Last Ordered Date First Orde red Date STABLE, MANAGED BY SPECIALIST 1 03/31/2023 documented in this encounter Additional Health Concerns Assessment Noted Time A fall risk assessment has been complete d for the patient 09/29/2022 10:09 AM EST documented as of this encounter Care Teams Role Player Relationship Specialty Start Date End Date Dora Hernandez MD [address] [place] [id number] PCP - General Family Medicine 12/24/15 documented as of this encounter
--- OUTSIDE RECORDS SUMMARY | 2024-09-12 12:43 | XMS_ITS | Encounter Summary ---
Author Organization [place] [address] Care Team Providers Care Examination Grader Name Role Phone Dora Hernandez MD Primary Care Provider [phone] Reason for Visit * Reason Comments Medication Refill Encounter Details Date Type Department Care Team (Late st Contact Info) Description 02/23/2023 Refill SEP [facility] [address] [facility] [place] [address] Dora Hernandez MD [address] [place] [address] Medication Refill Social History Tobacco [...] BY MOUTH DAILY 90 Tablet 2 02/23/2023 11/30/2023 documented in this encounter Plan of Treatment [...] Tablet TAKE 1 TABLET BY MOUTH DAILY 11/11/2022 02/23/2023 documented as of this encounter Additional Health Concerns Assessment Noted Time A fall risk assessment has been complete d for the patient 09/29/2022 10:09 AM EST documented as of this encounter Care Teams Examination Grader Relationship Specialty Start Date End Date Dora Hernandez MD [address] [facility] [address] [place] [phone] PCP - General Family Medicine 12/24/15 documented as of this encounter
--- OUTSIDE RECORDS SUMMARY | 2024-09-12 12:43 | XMS_ITS | Encounter Summary ---
Author Organization [place] [address] Care Team Providers Care Multicultural Manager Name Role Phone Dora Hernandez MD Primary Care Provider [phone] Reason for Visit * Reason Comments Medication Refill Encounter Details Date Type Department Care Team (Late st Contact Info) Description 05/19/2023 Refill SEP [facility] [address] [facility] [place] [address] Dora Hernandez MD [address] [place] [address] Medication Refill Social History Tobacco [...] TAKE 1 TABLET EVERY DAY 90 Tablet 05/20/2023 10/07/2023 documented in this encounter Miscellaneous Notes * Telephone Encounter - Kaylin Neely CPhT - 05/20/2023 8:58 AM EDT metoprolol succinate ER- Medication refill request deferred to office staff. nurse's companion Reason: The prescription from 03/31/2023 was a class No Print to Unspecified Pharmacy. Unsure how to proceed. Patient needs labs: serum potassium documented in this encounter Plan of Treatment [...] Start Date End Da te metoprolol succinate (TOPROL-XL) 100 mg Oral Tablet Sustained Release 24 hrIndications:Essential hypertension Take 1 Tablet by mouth daily. 03/31/2023 05/20/2023 documented as of this encounter Additional Health Concerns Assessment Noted Time A fall risk assessment has been complete d for the patient 09/29/2022 10:09 AM EST documented as of this encounter Care Teams Multicultural Manager Relationship Specialty Start Date End Date Dora Hernandez MD [address] [facility] [place] [address] PCP - General Family Medicine 12/24/15 documented as of this encounter
--- OUTSIDE RECORDS SUMMARY | 2024-09-12 12:43 | XMS_ITS | Encounter Summary ---
Author Organization [place] [address] Care Team Providers Care Livestock Farmer Name Role Phone Dora Hernandez MD Primary Care Provider [phone] Reason for Visit * Reason Comments Medication Refill Encounter Details Date Type Department Care Team (Late st Contact Info) Description 07/20/2023 Refill SEP [address] [facility] [place] [address] Dora Hernandez MD [address] [place] [address] Medication Refill Social History Tobacco [...] Date fluticasone propionate (FLONASE) 50 mcg/actuation Nasl [place], SuspensionIndicati ons:Seasonal allergic rhinitis, unspecified trigger USE 2 SPRAYS NASALLY EVERY DAY 48 g 07/21/2023 documented in this encounter Plan of Treatment [...] te fluticasone propionate (FLONASE) 50 mcg/actuation Nasl [place], SuspensionIndications:Se asonal allergic rhinitis, unspecified trigger USE 2 SPRAYS NASALLY EVERY DAY 02/18/2023 07/21/2023 documented as of this encounter Additional Health Concerns Assessment Noted Time A fall risk assessment has been complete d for the patient 09/29/2022 10:09 AM EST documented as of this encounter Care Teams Livestock Farmer Relationship Specialty Start Date End Date Dora Hernandez MD [address] [facility] [place] [phone] PCP - General Family Medicine 12/24/15 documented as of this encounter
--- OUTSIDE RECORDS SUMMARY | 2024-09-12 12:43 | XMS_ITS | Encounter Summary ---
Author [place] [address] Care Team Providers Care Art Museum Docent Name Role Phone Dora Hernandez MD Primary Care Provider [phone] Reason for Referral * MRI/CAT Scan (Routine) - Closed Specialty Diagnoses / Procedures Referred By Contac t Referred To Contact Radiology Diagnoses Peripheral polyneuropathy Leg weakness, bilateral Procedures MRI LUMBAR SPINE WO CONTRAST Dora Hernandez MD [address] [place] [address] Phone: tel: fax: [facility] [address] [place] [address] Phone: tel: Referral ID Status Reason Start Date Expiration Date Visits Re quested Visits Authorized [id number] Closed 12/16/2022 12/16/2023 1 1 Reason for Visit * Reason Comments Follow-up procedure follow up from urology e Encounter Details Date Type Department Care Team (Late st Contact Info) Description 12/16/2022 10:40 AM EST Office Visit [facility] [address] [place] [address] Dora Hernandez MD [address] [place] [address] IFG (impaired fasting glucose) (Primary Dx); Peripheral polyneuropathy; BPH without urinary obstruction; Essential hypertension; Leg weakness, bilateral; Nodule of right lung; Anxiety disorder, unspecified type; Uses hearing aid Social History Tobacco Use Types Packs/Day Years [...] AM EST documented as of this encounter Last Filed Vital Signs Vital Sign Reading Time Taken Comments Blood Pressure 114/72 12/16/2022 10:44 AM EST Pulse 73 12/16/2022 10:44 AM EST Temperature 37.1 ??C (98.7 ??F) 12/16/2022 10:[address] Respiratory Rate - - Oxygen Saturation 96% 12/16/2022 10:44 AM EST Inhaled Oxygen Concentration - - Weight 114.3 kg (252 lb) 12/16/2022 10:44 AM EST Height 190.5 cm (6' 3 ) 12/16/2022 10:44 AM EST Body Mass Index 31.5 12/16/2022 10:44 AM EST documented in this encounter Functional Status * Is the person deaf or does he/she have serious difficulty hearing? Answer Date of Assessment Author Yes 09/29/2022 10:06 AM EST Blessing Partida CCMA * Is the person blind or does he/she have serious difficulty seeing even when wearing glasses? Answer Date of Assessment Author No 09/29/2022 10:06 AM EST Blessing Partida CCMA * Does this person have [...] Progress Notes * Dora Hernandez MD - 12/16/2022 10:40 AM EST Assessment Diagnoses and all orders for this visit: IFG (impaired fasting glucose) - HEMOGLOBIN A1C; Future Peripheral polyneuropathy - MRI LUMBAR SPINE WO CONTRAST; Future - VITAMIN B12 LEVEL; Future BPH without urinary obstruction Essential hypertension Leg weakness, bilateral - MRI LUMBAR SPINE WO CONTRAST; Future - VITAMIN B12 LEVEL; Future Nodule of right lung Anxiety disorder, unspecified type Uses hearing aid Back pain, Leg weakness and neuropathy r/t to back and LE injury from a tractor accident in the past. Since pt reports more LE weakness plus concern for neurogenic bladder, check lumbar MRI. See orders. Finish abx x 2 weeks. Keep appt with Dr Levine. Need to sched Chest CT. UDS and jono UTD> F/u in 3-4 months, sooner prn. Progress Note: Vitals: 12/16/22 1044 BP: 114/72 BP Location: Left arm Patient Position: Sitting Pulse: 73 Temp: 98.7 ??F (37.1 ??C) TempSrc: Temporal SpO2: 96% Weight: 252 lb (114.3 kg) Height: 6' 3 (1.905 m) SUBJECTIVE: Chief Complaint Patient presents with ??? Follow-up procedure follow up from urology e HPI: Pt had Uro procedure. Riggs cath in place. F/u today d/t LE weakness. Chronic low back pain and neuropathy. Tractor accident years ago - says his back was crushed by thetractor. Reports doc that saw him in the hospital told him he will not be able to walk. He says his legs are not as strong as they were. He uses cane at times. No fall. He takes tylenol prn. No s/e from gabapentin. Controlled Substance Common Conditions Interval Assessment:?Anxiety:?Jac Garvin??is here for follow up of chronic anxiety and medication management. ?Currently, he??reports anxiety level as controlled??with current treatments in place. ??He??reports taking current medication <1??times per week.??Took 1 yesterday. 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 ??He??has??abstained fromalcohol while requiring this medication. ??Current limitations of anxiety symptoms include: abilityto cope with day to day stress, and situations, without medication ?? Doing well, No SE's with medication. No evidence of abuse/diversion. Pt informed and aware of medication's potential for abuse/dependence. ?? Functional goal/goals of treatment:?Abort anxiety attacks. ?? Controlled Substance Prescribing Management:?As part of today's visit??Jac??is also being followed for controlled substance management for anxiety. ??Details of the progress of the monitored condition are noted in that section of the HPI. ??The controlled substance flow sheet has been reviewed. ? Review of Systems OBJECTIVE: Physical Exam Constitutional: Appearance: He is not ill-appearing or diaphoretic. Musculoskeletal: Right lower leg: No edema. Left lower leg: No edema. Neurological: General: No focal deficit present. Mental Status: He is alert and oriented to person, place, and time. Comments: No muscle atrophy. No tremors. No muscle rigidity. Psychiatric: Mood and Affect: Mood normal. Behavior: Behavior normal. * Jennifer Garcia RMA - 12/16/2022 10:40 AM EST Venipuncture R ac #[id number] wnl [...] Procedure Name Priority Date/Time Associated Diagnosis Comments HEMOGLOBIN A1C Routine 12/16/2022 11:15 AM EST IFG (impaired fasting glucose) VITAMIN B12 LEVEL Routine 12/16/2022 11: 15 AM EST Peripheral polyneuropathy Leg weakness, bilateral documented in [...] ??01/08/2023 10:36 AM ?? CLINICAL HISTORY: ??G62.9-Polyneuropathy, [id number]-19-CM R29.898-Other symptoms and signs involving the musculoskeletal vlzasy-WZM-54-CM. COMPARISON: ??CT abdomen pelvis April 14, 2022 [...] CONTRAST, 01/08/2023 10:36 AM CLINICAL HISTORY: G62.9-Polyneuropathy, xnzjfbxqbeq-XHN-66-CM R29.898-Other symptoms and signs involving the fwonjfwizjoucspamycos-JIB-11-CM. COMPARISON: CT abdomen pelvis April 14, 2022 [...] office of the ordering clinician. us Dora A. David MD IMG MRI ORDERABLES Final Result * HEMOGLOBIN A1C (12/16/2022 11:15 AM EST) Hgb A1C 5.5 4.2 - 5.6 % 12/16/2022 5:21 PM EST [facility] Est. Avg Glucose 111 mg/dL 12/16/2022 5:21 PM EST [facility] Blood VENOUS BLOOD / Unknown Venipuncture / Unknown 12/16/2022 11:15 AM EST 12/16/2022 11:15 AM EST Narrative [facility] - 12/16/2022 5:21 PM EST REFERENCE RANGE: Normal: 4.0-5.6% Pre-diabetes: 5.7-6.4% Provisional diagnosis of diabetes: >6.4% Hgb F>10% and anything which shortens red cell survival, such as hemolytic anemia, or unstable hemoglobin variants such as HbSS, HbSC, or HbCC, will lower the HbA1c value associated with a given level of glycemic control. ? Dora Hernandez MD CHEMISTRY ORDERABLES Final Resu Performing Organization Address [facility] Co de Phone Number [facility] [address] [place] [address] , [place] [address] * VITAMIN B12 LEVEL (12/16/2022 11:15 AM EST) Vitamin B12 690 232 - 1,245 pg/mL 12/16/2022 4:57 PM EST [facility] Blood VENOUS BLOOD / Unknown Venipuncture / Unknown 12/16/2022 11:15 AM EST 12/16/2022 11:15 AM EST Narrative [facility] - 12/16/2022 4:57 PM EST Ingestion of elizabeth doses of biotin (>5 mg/day) taken within 8 hours of drawing blood sample can interfere with this immunoassay test. Dora Hernandez MD CHEMISTRY ORDERABLES Final Resu lt Performing Organization Address City/[facility]/ZIP Co de Phone Number [facility] [address] [place] [address] , [place] [address] documented in this encounter Visit Diagnoses Diagnosis IFG (impaired fasting glucose)- Primary Impaired fasting glucose Peripheral polyneuropathy Unspecified hereditary and idiopathic peripheral neuropathy BPH without urinary obstruction Hypertrophy of prostate without urinary obstruction and other lower urinary tract symptoms (LUTS) Essential hypertension Unspecified essential hypertension Leg weakness, bilateral Other musculoskeletal symptoms referable to limbs Nodule of right lung Solitary pulmonary nodule Anxiety disorder, unspecified type Uses hearing aid Peripheral polyneuropathy Unspecified hereditary and idiopathic peripheral neuropathy Leg weakness, bilateral Other musculoskeletal symptoms referable to limbs documented in this encounter Discontinued Medications Medication Sig Discontinue Reason Start Date End Da te tamsulosin (FLOMAX) 0.4 mg Oral CapsuleIndications:BPH without urinary obstruction Take 1 Capsule by mouth daily. TAKE 1 CAPSULE EVERY day Cancelled by MD 10/07/2022 12/16/2022 aspirin (ASPIRIN LOW DOSE) 81 mg Oral Tablet, Delayed Release (E.C.)Indications:Essenti al hypertension Take 1 Tab by mouth daily. Patient discharge 2015 12/16/2022 Cod Liver Oil Oral Oil Take by mouth daily. Patient discharge 12/16/2022 MULTI-VITAMIN ORAL Take by mouth daily. Patient discharge 12/16/2022 documented as of this encounter Historical Medications * This list may reflect changes made after this encounter. Medication Sig Dispense Quantity Refills Last Filled Start D ate End Date sulfamethoxazole-trim ethoprim (BACTRIM DS) 800-160 mg Oral Tablet 12/14/2022 02/25/2023 added in this encounter Additional Health Concerns Assessment Noted Time A fall risk assessment has been complete d for the patient 09/29/2022 10:09 AM EST documented as of this encounter Care Teams [employer] Docent Relationship Specialty Start Date End Date Dora Hernandez MD [address] [place] [address] PCP - General Family Medicine 12/24/15 documented as of this encounter
--- OUTSIDE RECORDS SUMMARY | 2024-09-12 12:43 | XMS_ITS | Encounter Summary ---
Author Organization [place] [address] Care Team Providers Care Watch Supervisor Name Role Phone Dora Hernandez MD Primary Care Provider [phone] Reason for Visit * Reason Comments Hematuria on and off again blo od in urine- went to urgent care over the weekend. given omnicef. started bleedign again yesterday. aptp with new urologist next week Encounter Details Date Type Department Care Team (Late st Contact Info) Description 11/05/2022 11:10 AM EST Office [place] [facility] [place] [address] [facility] [place] [address] Dora Hernandez MD [address] [facility] [place] [address] Gross hematuria (Primary Dx); BPH without urinary obstruction; Essential hypertension Social History Tobacco Use Types [...] Sign Reading Time Taken Comments Blood Pressure 150/78 11/05/2022 11:17 AM EST Pulse 83 11/05/2022 11:17 AM EST Temperature 36.6 ??C (97.9 ??F) 11/05/2022 11:[address] Respiratory Rate - - Oxygen Saturation 98% 11/05/2022 11:17 AM EST Inhaled Oxygen Concentration - - Weight 115.7 kg (255 lb) 11/05/2022 11:17 AM EST Height 190.5 cm (6' 3 ) 11/05/2022 11:17 AM EST Body Mass Index 31.87 11/05/2022 11:17 AM EST documented in this encounter Functional [...] Progress Notes * Jennifer Garcia RMA - 11/05/2022 11:10 AM EST Venipuncture R ac #21g wnl * Dora Hernandez MD - 11/05/2022 11:10 AM EST Assessment Diagnoses and all orders for this visit: Gross hematuria - SEP URINALYSIS POC - CBC; Future - URINE CULTURE (NO STAIN); Future BPH without urinary obstruction Essential hypertension - CBC; Future - COMPREHENSIVE METABOLIC PANEL; Future Continue Abx rxed at Urgent care. Pt already has appt with Urology next week. Hold ASA for now. He was advised on s/sx on when to call or f/u. Progress Note: Vitals: 11/05/22 1117 BP: (!) 150/78 BP Location: Left arm Patient Position: Sitting Pulse: 83 Temp: 97.9 ??F (36.6 ??C) TempSrc: Temporal SpO2: 98% Weight: 255 lb (115.7 kg) Height: 6' 3 (1.905 m) SUBJECTIVE: Chief Complaint Patient presents with ??? Hematuria on and off again blood in urine- went to urgent care over the weekend. given omnicef. started bleedign again yesterday. aptp with new urologist next week HPI: As above. He is currently on Omnicef for suspected UTI. He denies abd pain, nausea, vomiting, fever or chills. Review of Systems OBJECTIVE: Physical Exam Constitutional: Appearance: He is not ill-appearing or diaphoretic. Abdominal: General: There is no distension. Palpations: Abdomen is soft. Tenderness: There is no abdominal tenderness. Skin: Coloration: Skin is not pale. Neurological: Mental Status: He is alert. Psychiatric: [...] Procedure Name Priority Date/Time Associated Diagnosis Comments URINE CULTURE (NO STAIN) Routine 11/05/2022 12:44 PM EST Gross hematuria CBC Routine 11/05/2022 11:35 AM EST Gross hematuria Essential hypertension COMPREHENSIVE METABOLIC PANEL Routine 11/05/2022 11:35 AM EST Essential hypertension SEP URINALYSIS POC Routine 11/05/2022 11 :08 AM EST Gross hematuria documented in this encounter Results * URINE CULTURE (NO STAIN) (11/05/2022 12:44 PM EST) Culture No growth at 30 hours. 11/07/2022 6:20 AM EST [facility] Urine URINE SPECIMEN COLLECTION, CLEAN CATCH / Unknown 11/05/2022 12:44 PM EST 11/05/2022 12:44 PM EST Dora Hernandez MD MICROBIOLOGY - GENERAL ORDERABL ES Final Result [facility] [address] [facility] , [place] [address] * (ABNORMAL) COMPREHENSIVE METABOLIC PANEL (11/05/2022 11:35 AM EST) Sodium 139 136 - 145 mmol/L 11/05/2022 5:05 PM EST [facility] Potassium 4.1 3.5 - 5.0 mmol/L 11/05/2022 5:05 PM EST [facility] Chloride 107 98 - 107 mmol/L 11/05/2022 5:05 PM EST [facility] Total CO2 21(L) 22 - 29 mmol/L 11/05/2022 5:05 PM EST [facility] Anion Gap 11 7 - 16 mmol/L 11/05/2022 5:05 PM EST [facility] Calcium 9.0 8.8 - 10.4 mg/dL 11/05/2022 5:05 PM EST [facility] Glucose Lvl 110(H) 82 - 100 mg/dL 11/05/2022 5:05 PM EST [facility] BUN 18 8 - 23 mg/dL 11/05/2022 5:05 PM EST [facility], [facility] Creatinine 1.14 0.67 - 1.30 mg/dL 11/05/2022 5:05 PM EST [facility], [facility] Albumin 4.1 3.2 - 4.6 gm/dL 11/05/2022 5:05 PM EST [facility] Total Protein 7.2 6.4 - 8.3 gm/dL 11/05/2022 5:05 PM EST [facility] Bili Total 0.7 0.1 - 1.4 mg/dL 11/05/2022 5:05 PM EST [facility] ALT 20 <=41 U/L 11/05/2022 5:05 PM EST [facility], [facility] AST 18 <=40 U/L 11/05/2022 5:05 PM EST [facility], [facility] Alk Phos 108 40 - 129 U/L 11/05/2022 5:05 PM EST [facility], [facility] eGFR (CKD-EPIcr 2020) 65 >=60 mL/min/1.7 3 m2 11/05/2022 5:05 PM EST [facility] Comment:Estimated GFR was ca lculated using the CKD-EPIcr (2020) equation refit without race. The equation is recommended by the National Kidney Foundation - [place] [employer] of Nephrology Task Force. Blood VENOUS BLOOD / Unknown Venipuncture / Unknown 11/05/2022 11:35 AM EST 11/05/2022 11:35 AM EST us Dora Hernandez MD CHEMISTRY ORDERABLES Final Resu lt [facility], [address] , [place] [address] [facility] [address] [place] [address] * (ABNORMAL) CBC (11/05/2022 11:35 AM EST) WBC 6.6 3.7 - 10.3 x10(3)/mcL 11/05/2022 3:50 PM EST [facility] RBC 4.31(L) 4.60 - 6.10 x10(6)/mcL 11/05/2022 3:50 PM EST [facility] Hgb 13.7 13.7 - 17.5 g/dL 11/05/2022 3:50 PM EST [facility] Hct 41.0 40.0 - 51.0 % 11/05/2022 3:50 PM EST [facility] MCV 95.1 80.0 - 100.0 fL 11/05/2022 3:50 PM EST [facility] MCH 31.8 26.0 - 34.0 pg 11/05/2022 3:50 PM EST [facility] MCHC 33.4 30.7 - 35.5 g/dL 11/05/2022 3:50 PM EST [facility] RDW 14.2 <=14.9 % 11/05/2022 3:50 PM EST [facility] Platelet 297 155 - 369 x10(3)/mcL 11/05/2022 3:50 PM EST [facility] MPV 11.0 8.8 - 12.5 fL 11/05/2022 3:50 PM EST [facility] Blood VENOUS BLOOD / Unknown Venipuncture / Unknown 11/05/2022 11:35 AM EST 11/05/2022 11:35 AM EST us Dora Hernandez MD HEMATOLOGY ORDERABLES Final Res ult [facility] [address] [facility] , [place] [address] * (ABNORMAL) SEP URINALYSIS POC (11/05/2022 11:08 AM EST) UA Color POC Red Color 11/05/2022 11:10 AM EST SEP [place] [facility] UA Appear POC Cloudy(A) Clear 11/05/2022 11:10 AM EST SEP [place] UA Gluc POC Negative Negative mg/dL 11/05/2022 11:10 AM EST SEP [place] UA Bili POC Large(A) Negative 11/05/2022 11:10 AM EST SEP [place] UA Ketones POC 15(A) Negative mg/dL 11/05/2022 11:10 AM EST ANA [place] [facility] UA SG POC 1.015 1.001 - 1.035 no units 11/05/2022 11:10 AM EST ANA [place] [facility] UA Blood POC Large(A) Negative 11/05/2022 11:10 AM EST ANA [place] [facility] UA pH POC 5.5 5.0 - 8.0 pH 11/05/2022 11:10 AM EST SEP [place] UA Protein POC >=300(A) Negative mg/dL 11/05/2022 11:10 AM EST SEP [place] UA Urobilinogen POC 4.0(A) 0.2, 1.0 11/05/2022 11:10 AM EST SEP [place] UA Nitrite POC Negative Negative 11/05/2022 11:10 AM EST ANA [facility] UA Leuk Est POC Large(A) Negative 11:10 AM EST [facility] Urine URINE SPECIMEN COLLECTION / Unknown 11/05/2022 11:08 AM EST 11/05/2022 11:10 AM EST Dora Hernandez MD POINT OF CARE TEST ORDERABLES F inal Result ANA [facility] [address] [facility] [place] [address] documented in this encounter Visit Diagnoses Diagnosis Gross hematuria- Primary BPH without urinary obstruction Hypertrophy of prostate without urinary obstruction and other lower urinary tract symptoms (LUTS) Essential hypertension Unspecified essential hypertension documented in this encounter Additional Health Concerns Assessment Noted Time A fall risk assessment has been complete d for the patient 09/29/2022 10:09 AM EST documented as of this encounter Care Teams Watch Supervisor Relationship Specialty Start Date End Date Dora Hernandez MD [address] [facility] [address] [place] [address] PCP - General Family Medicine 12/24/15 documented as of this encounter
--- OUTSIDE RECORDS SUMMARY | 2024-09-12 12:43 | XMS_ITS | Encounter Summary ---
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 Name Role Phone Dora Hernandez MD Primary Care Provider [phone] Reason for Visit * Reason Comments Urinary Catheter Problem Has chronic fol ey, has not been draining since last night Encounter Details Date Type Department Care Team (Late st Contact Info) Description 02/11/2023 4:06 AM EDT - 02/11/2023 5:50 AM EDT Emergency [facility] [address] [place] [id number] Chung Santiago MD [facility] [address] [place] [address] Problem with Richardson catheter, initial encounter (HCC) (Primary Dx); Acute [...] Sign Reading Time Taken Comments Blood Pressure 136/57 02/11/2023 4:20 AM EDT Pulse 75 02/11/2023 4:20 AM EDT Temperature 36.7 ??C (98 ??F) 02/11/2023 4:20 AM EDT Respiratory Rate 16 02/11/2023 4:20 AM EDT Oxygen Saturation 98% 02/11/2023 4:20 AM EDT Inhaled Oxygen Concentration - - Weight - - Height - - Body Mass Index - - documented in this encounter Functional Status * [...] Blessing Etienne CCMA documented in this encounter Discharge Instructions * Discharge Instructions* Chung Santiago MD - 02/11/2023 5:29 AM EDT Take plenty of fluid Take all antibiotics as prescribed Contact your primary care physician or referral physician for follow up in 2-3 days. Return for reevaluation if persistent fever, vomiting or worsening of symptoms Follow up with urologist documented in this encounter Medications at Time of Discharge ezetimibe (ZETIA) 10 mg Oral Tablet TAKE 1 TABLET BY MOUTH DAILY 90 Tablet 11/11/2022 3 fluticasone propionate (FLONASE) 50 mcg/actuation Nasl [place], SuspensionIndication s:Seasonal allergic rhinitis, unspecified trigger USE 2 SPRAYS NASALLY EVERY DAY 48 g 08/28/2022 3 gabapentin (NEURONTIN) 100 mg Oral CapsuleIndications:P eripheral polyneuropathy Take 2 Capsules by mouth 2 times daily. 120 Capsule 4 09/29/2022 3 levoFLOXacin (LEVAQUIN) 750 mg Oral Tablet Take 1 Tablet by mouth daily for 6 days. 6 Tablet 02/11/2023 3 losartan (COZAAR) 50 mg Oral TabletIndications:Es sential hypertension TAKE 1 TABLET EVERY DAY Strength: 50 mg 90 Tablet 11/17/2022 3 documented as of this encounter Ordered Prescriptions Prescription Sig Dispense Quantity Refills Last Filled Start Date End Date levoFLOXacin (LEVAQUIN) 750 mg Oral Tablet Take 1 Tablet by mouth daily for 6 days. 6 Tablet 02/11/2023 02/17/2023 documented in this encounter Discharge Disposition Disposition Code Departure Means Destination Comment s Home or Self [facility] documented in this encounter ED Notes * Lurdes King RN - 02/11/2023 5:44 AM EDT Pt standard drainage bag switched to leg bag. Pt given education on usage of bag. * Chung Santiago MD - 02/11/2023 4:06 AM EDT Chief Complaint Patient presents with ??? Urinary Catheter Problem Has chronic irchardson, has not been draining since last night Patient is an 82-year-old male who presents to the emergency department today for evaluation. Patient has a Richardson catheter. He states he was placed by urologist. He states that it was placed in November. Has not been changed. Tonight it stopped working. He developed lower abdominal discomfort and there was no urine going into his catheter. States that he did have UTI. Was previously on antibiotics but not currently. He is supposed to see urologist again in early February Patient History Allergies Allergen Reactions ??? Crestor [Rosuvastatin] Other (See Comments) Leg weakness Home Medications: Prior to Admission medications Medication Sig Start Date End Date Taking? Authorizing Provider amLODIPine (NORVASC) 10 mg Oral Tablet Take 1 Tablet by mouth daily. 01/06/23 Dora Hernandez MD diclofenac (VOLTAREN) 1 % Top Gel APPLY 2 GRAMS TOPICALLY 4 TIMES DAILY. 08/25/19 Dora Hernandez MD ezetimibe (ZETIA) 10 mg Oral Tablet TAKE 1 TABLET BY MOUTH DAILY 11/11/22 Dora Hernandez MD fluticasone propionate (FLONASE) 50 mcg/actuation Nasl [place], Suspension USE 2 SPRAYS NASALLY EVERYDAY 08/28/22 Dora Hernandez MD gabapentin (NEURONTIN) 100 mg Oral Capsule Take 2 Capsules by mouth 2 times daily. 09/29/22 Dora Hernandez MD LORazepam (ATIVAN) 0.5 mg Oral Tablet Take 1 Tablet by mouth every 8 hours as needed for Anxiety. 09/29/22 Dora Hernandez MD losartan (COZAAR) 50 mg Oral Tablet TAKE 1 TABLET EVERY DAY Strength: 50 mg 11/17/22 Dora Hernandez MD metoprolol succinate ER (TOPROL-XL) 100 mg Oral Tablet Sustained Release 24 hr TAKE 1 TABLET EVERY DAY 12/17/22 Dora Hernandez MD naproxen sodium (ANAPROX) 220 mg Oral Tablet Take 220 mg by mouth as needed. Provider, Historical Saw Fulda Fruit 450 mg Oral Capsule Take 450 mg by mouth 3 times daily. supposed to help with urinary frequency Provider, Historical sulfamethoxazole-trimethoprim (BACTRIM DS) 800-160 mg Oral Tablet 12/14/22 Provider, Historical vit A/vit C/vit E/zinc/copper (ICAPS AREDS ORAL) Take by mouth daily. Provider, Historical Past Medical History: Past Medical History: Diagnosis Date ??? Hyperlipidemia 04/17/2021 ??? Hypertension ??? Neuropathy ??? Tobacco use 12/23/2015 Social History: reports that he quit smoking about 7 years ago. His smoking use included pipe and cigarettes. He has a 100.00 pack-year smoking history. He has never used smokeless tobacco. He reports current alcohol use. He reports that he does not use drugs. E-Cigarettes (such as Vapes or Juul) Family History: Family History Problem Relation Age of Onset [...] Neg Hx ??? Stomach Cancer Neg Hx Surgical History: Past Surgical History: Procedure Laterality Date ??? CARDIAC CATHETERIZATION ??? DENTAL SURGERY ??? FOOT SURGERY Review of Systems Review of Systems Gastrointestinal: Positive for abdominal pain. Genitourinary: Positive for difficulty urinating. All other systems reviewed and are negative. Physical Exam Blood pressure 136/57, pulse 75, temperature 98 ??F (36.7 ??C), resp. rate 16, SpO2 98 %. Physical Exam Vitals and nursing note reviewed. Constitutional: Appearance: He is not toxic-appearing. HENT: Head: Atraumatic. Eyes: Conjunctiva/sclera: Conjunctivae normal. Cardiovascular: Rate and Rhythm: Normal rate. Pulmonary: Effort: No respiratory distress. Abdominal: Palpations: Abdomen is soft. Tenderness: There is no abdominal tenderness. Musculoskeletal: General: No deformity. Cervical back: Neck supple. Skin: General: Skin is warm. Capillary Refill: Capillary refill takes less than 2 seconds. Neurological: Mental Status: He is alert and oriented to person, place, and time. Psychiatric: Mood and Affect: Mood normal. Procedures Radiology/EKG/Labs: Labs Reviewed URINALYSIS REFLEX - Abnormal Result Value UA Color Red UA Appear Cloudy (*) UA Glucose Negative UA Ketones Trace (5 mg/dL) (*) UA Blood Large (*) UA pH 8.5 (*) UA Protein >=300 (*) UA Urobilinogen 1.0 UA Bili Negative UA Nitrite Positive (*) UA Leuk Est Large (*) UA Spec Grav 1.015 UA WBC >100 (*) UA RBC >100 (*) UA Bacteria 4+ (*) UA Trip Phos 2+ URINE CULTURE (NO STAIN) UA W/REFLEX TO CULTURE Narrative: The following orders were created for panel order UA W/REFLEX TO CULTURE. Procedure Abnormality Status --------- ------ URINALYSIS REFLEX[[id number]] Abnormal Final result EXTRA BRASHER URINE CX[[id number]] In process Please view results for these tests on the individual orders. No orders to display ED Course: Appropriate laboratory and radiology studies reviewed Presents to the emergency department today for evaluation. Richardson catheter was exchanged and patienthad relief of symptoms. Reportedly there was a large clots. Urine is now clearing up. There was some pink-tinged urine. Given previous urinary tract infection and urinalysis with signs of UTI patientstarted on Levaquin for complicated urinary tract infection. He does not appear soft septic or toxic. Advise follow-up with his urologist. ED Clinical Impression: Richardson catheter malfunction Critical Care time MDM MDM Condition at Discharge/Transfer from Department: Stable This chart was completed using voice recognition technology and may contain unintended errors Chung Santiago MD 02/11/23 0528 documented in this encounter Plan of Treatment [...] Procedure Name Priority Date/Time Associated Diagnosis Comments URINALYSIS REFLEX STAT 02/11/2023 4:2 4 AM EDT UA W/REFLEX TO CULTURE STAT 02/11/2023 4:24 AM EDT EXTRA BRASHER URINE CX STAT 02/11/2023 4 :24 AM EDT URINE CULTURE (NO STAIN) STAT 02/11/2023 4:24 AM EDT documented in this encounter Results * (ABNORMAL) URINE CULTURE (NO STAIN) (02/11/2023 4:24 AM EDT) Culture Positive Growth(A) 02/13/2023 11:03 AM EDT PREFERRED LAB [facility] Culture >100,000 CFU/mL Proteus mirabilis SUSCEPTIBIL ITY RESULT 02/13/2023 11:03 AM EDT PREFERRED [facility] Urine URINE SPECIMEN OBTAINED VIA INDWELLING URINARY [...] tho xazole SUSCEPTIBILITY RESULT <=0.5/9.5 ug/mL: Susceptible us Chung Santiago MD MICROBIOLOGY - GENERAL ORDERAB LES Final Result Performing Organization Address City/[facility] Co de Phone Number [facility] [address] [facility] , [place] [place] [address] * EXTRA BRASHER URINE CX (02/11/2023 4:24 AM EDT) Urine URINE SPECIMEN OBTAINED VIA INDWELLING URINARY CATHETER / Unknown 02/11/2023 4:24 AM EDT 02/11/2023 4:27 AM EDT us Chung Santiago MD MICROBIOLOGY - GENERAL ORDERAB LES Final Result Performing Organization Address City/State/[facility] Co de Phone Number [facility] [address] [place] [address] * (ABNORMAL) URINALYSIS REFLEX (02/11/2023 4:24 AM EDT) UA Color Red 02/11/2023 4:45 AM EDT [facility] UA Appear Cloudy(A) Clear 02/11/2023 4:45 AM EDT [facility] UA Glucose Negative Negative mg/dL 02/11/2023 4:45 AM EDT [facility] UA Ketones Trace (5 mg/dL)(A) Negative mg/dL 02/11/2023 4:45 AM EDT [facility] UA Blood Large(A) Negative 02/11/2023 4:45 AM EDT [facility] UA pH 8.5(H) 5.0 - 8.0 pH 02/11/2023 4:45 AM EDT [facility] UA Protein >=300(A) Negative mg/dL 02/11/2023 4:45 AM EDT [facility] UA Urobilinogen 1.0 <=1 mg/dL 4:45 AM EDT [facility] UA Bili Negative Negative 02/11/2023 4:45 AM EDT [facility] UA Nitrite Positive(A) Negative 02/11/2023 4:45 AM EDT [facility] UA Leuk Est Large(A) Negative 02/11/2023 4:45 AM EDT [facility] UA Spec Grav 1.015 1.001 - 1.035 no units 02/11/2023 4:45 AM EDT [facility] Comment:Reference range bishop d for random specimens only. UA WBC >100(H) 0 - 4 /HPF 02/11/2023 4:45 AM EDT [facility] UA RBC >100(H) 0 - 3 /HPF 02/11/2023 4:45 AM EDT [facility] UA Bacteria 4+(A) Negative /HPF 02/11/2023 4:45 AM EDT [facility] UA Trip Phos 2+ /LPF 02/11/2023 4:45 AM EDT [facility] Urine URINE SPECIMEN OBTAINED VIA INDWELLING URINARY CATHETER / Unknown 02/11/2023 4:24 AM EDT 02/11/2023 4:27 AM EDT us Chung Santiago MD URINE ORDERABLES Final Result [facility] [address] [facility] [place] [address] documented in this encounter Visit Diagnoses Diagnosis Problem with Richardson catheter, initial encounter (HCC)- Primary Acute cystitis with hematuria Acute cystitis documented in this encounter Administered Medications Inactive Administered Medications - up to 1 most recent administrations Medication Order MAR Action Action Date Dose Rate Site levoFLOXacin (LEVAQUIN) tablet 750 mg 750 mg, Oral, ONCE, 1 dose, On Vanessa 02/11/23 at 0500, Take without food. Hold tube feeding 1 hour before/after administration. Do not take with milk, yogurt, or other dairy products. Take at least 2 hours before or 2 hours after antacids., Reason for Therapy: Infection Suspected, Indication: Urinary Tract Infection Given 02/11/2023 4:58 AM EDT 750 mg documented in this encounter Active and Recently Administered Medications Times are shown in EDT. Scheduled Medication Order 02/09/2023 02/10/2023 02/11/2023 levoFLOXacin (LEVAQUIN) tablet 750 mg (COMPLETED) 750 mg, Oral, ONCE, 1 dose, On Vanessa 02/11/23 at 0500, Take without food. Hold tube feeding 1 hour before/after administration. Do not take with milk, yogurt, or other dairy products. Take at least 2 hours before or 2 hours after antacids., Reason for Therapy: Infection Suspected, Indication: Urinary Tract Infection 0458 (Given - Provid er: Jil Ramos RN) documented in this encounter Orders Medications Ordered That Rafiq ht Not Have Been Administered Count Last Ordered Date First Ordered Date levoFLOXacin (LEVAQUIN) tablet 750 mg 1 documented in this encounter Additional Health Concerns Assessment Noted Time A fall risk assessment has been complete d for the patient 09/29/2022 10:09 AM EST documented as of this encounter Care Teams Toeing Stockings Relationship Specialty Start Date End Date Dora Hernandez MD [address] [facility] [place] [address] PCP - General Family Medicine 12/24/15 documented as of this encounter
--- OUTSIDE RECORDS SUMMARY | 2024-09-12 12:43 | XMS_ITS | Encounter Summary ---
Author Organization [place] [address] Care Team Providers Care Mechanical And Auto [employer] Car Checker Name Role Phone Dora Hernandez MD Primary Care Provider [phone] Reason for Visit * Reason Comments Medication Refill Encounter Details Date Type Department Care Team (Late st Contact Info) Description 01/04/2023 Refill SEP Gloria [facility] [address] [place] [address] Dora Hernandez MD [address] [place] [address] Medication Refill Social History Tobacco [...] Tablet by mouth daily. 90 Tablet 3 01/06/2023 02/25/2023 amLODIPine (NORVASC) 10 mg Oral TabletIndications: Essential hypertension TAKE 1 TABLET EVERY DAY 90 Tablet 01/06/2023 01/06/2023 documented in this encounter Miscellaneous Notes * Telephone Encounter - Xenia Wang CPhT - 01/06/2023 11:30 AM EDT amlodipine Medication Refill Protocol passed. Jesse Action: Approved 90-day supply due to scheduled appointment on 03/31/23. documented in this encounter Plan of Treatment Not on file documented as of this encounter Goals Goal Patient Goal Type Associated Problems Recent Progress Patient-Stated? Author Blood Pressure < 140/90 Blood Pressure 110/78(06/12/ 2024 11:26 AM EDT) No Dye, Ember, RN Maintain a healthy diet, exercise regularly [...] Da te amLODIPine (NORVASC) 10 mg Oral TabletIndications:Essenti al hypertension TAKE 1 TABLET EVERY DAY 02/27/2022 01/06/2023 amLODIPine (NORVASC) 10 mg Oral TabletIndications:Essenti al hypertension TAKE 1 TABLET EVERY DAY Reorder 01/06/2023 01/06/2023 documented as of this encounter Additional Health Concerns Assessment Noted Time A fall risk assessment has been complete d for the patient 09/29/2022 10:09 AM EST documented as of this encounter Care Teams Mechanical And Auto [employer] Car Checker Relationship Specialty Start Date End Date Dora Hernandez MD [address] [place] [address] PCP - General Family Medicine 12/24/15 documented as of this encounter
--- OUTSIDE RECORDS SUMMARY | 2024-09-12 12:43 | XMS_ITS | Encounter Summary ---
Author Organization [place] [address] Care Team Providers Care Timekeeper Name Role Phone Dora Hernandez MD Primary Care Provider [phone] Reason for Referral * Consultation (Urgent) - Closed Specialty Diagnoses / Procedures Referred By Contkaroline t Referred To Contact Urology Diagnoses Urine frequency Michael Hernandez APRN [address] [place] [address] Phone: tel: fax: [facility] [address] [address] Phone: tel: fax: Referral ID Status Reason Start Date Expiration Date Visits Re quested Visits Authorized [id number] Closed 10/31/2022 10/31/2023 99 99 Comments Recurrent gross hematuria 3 times in the past year or so. Recommend patient needs further management and evaluation by specialist. Patient being treated for urinary tract infection from urgent care based on urinalysis results. Reason for Visit * Reason Comments Urinary Frequency Blood in urine x 24 hr Encounter Details Date Type Department Care Team (Late st Contact Info) Description 10/31/2022 9:30 AM EST Office Visit [facility] [address] [address] Michael Hernandez APRN [address] [place] [address] Urine frequency (Primary Dx); Urinary tract infection with hematuria, site unspecified Social History Tobacco Use Types Packs/Day Years [...] Sign Reading Time Taken Comments Blood Pressure 142/76 10/31/2022 9:42 AM EST Pulse 87 10/31/2022 9:42 AM EST Temperature 36.6 ??C (97.9 ??F) 10/31/2022 9:42 AM ES T Respiratory Rate 16 10/31/2022 9:42 AM EST Oxygen Saturation 98% 10/31/2022 9:42 AM EST Inhaled Oxygen Concentration - - Weight 113.4 kg (250 lb) 10/31/2022 9:42 AM EST Height 190.5 cm (6' 3 ) 10/31/2022 9:42 AM EST Body Mass Index 31.25 10/31/2022 9:42 AM EST documented in this encounter Functional [...] Refills Last Filled Start Date End Date cefdinir (OMNICEF) 300 mg Oral CapsuleIndications :Urine frequency Take 1 Capsule by mouth 2 times daily for 7 days. 14 Capsule 10/31/2022 documented in this encounter Progress Notes * David Michael Brown, MD DO [facility] - 10/31/2022 9:30 AM EST Chief Complaint Patient presents with ??? Urinary Frequency Blood in urine x 24 hr Urgent Care Encounter HPI Patient is a 81 y.o. male here his . Reports he has had blood in his urine for the past 24 hours with some small blood clots passing. Reports this is the third time its happened to him in the past year or so. Reports he has not seen a urologist for this complication. He denies any pain or burning or any other abnormalities other than the blood in the urine. Reports he has had a urinary tract infection before but the symptoms. Review of Systems Constitutional: no lethargy, no malaise, no fever CV: no chest pain Resp: no SOB Abdomen: non-tender, not distended, bowel movements normal : SEE HPI MSK: no mid-back pain Neuro: awake, alert, no mental status changes Patient Active Problem List Diagnosis ??? Hyponatremia ??? Recurrent acute otitis media of both ears ??? Non morbid obesity due to excess calories ??? Elevated blood sugar ??? Essential hypertension ??? Pulmonary nodule, right ??? Former smoker ??? Uses hearing aid ??? Lipoma of back ??? Mass of skin of right shoulder ??? Primary osteoarthritis of both knees ??? Peripheral polyneuropathy ??? Anxiety disorder ??? Obesity, Class I, BMI 30-34.9 ??? Hyperlipidemia ??? Statin intolerance ??? BPH without urinary obstruction ??? Seasonal allergic rhinitis ??? Bilateral hearing loss Outpatient Medications Marked as Taking for the 10/31/22 encounter (Office Visit) with Lamonte Hernandez APRN Medication Sig Dispense Refill ??? amLODIPine (NORVASC) 10 mg Oral Tablet TAKE 1 TABLET EVERY DAY 90 Tablet 2 ??? aspirin (ASPIRIN LOW DOSE) 81 mg Oral Tablet, Delayed Release (E.C.) Take 1 Tab by mouth daily. ??? Cod Liver Oil Oral Oil Take by mouth daily. ??? diclofenac (VOLTAREN) 1 % Top Gel APPLY 2 GRAMS TOPICALLY 4 TIMES DAILY. 300 g 2 ??? ezetimibe (ZETIA) 10 mg Oral Tablet TAKE 1 TABLET BY MOUTH DAILY 90 Tablet 0 ??? fluticasone propionate (FLONASE) 50 mcg/actuation Nasl [place], Suspension USE 2 SPRAYS NASALLY EVERY DAY 48 g 0 ??? gabapentin (NEURONTIN) 100 mg Oral Capsule Take 2 Capsules by mouth 2 times daily. 120 Capsule 4 ??? LORazepam (ATIVAN) 0.5 mg Oral Tablet Take 1 Tablet by mouth every 8 hours as needed for Anxiety. 30 Tablet 0 ??? losartan (COZAAR) 50 mg Oral Tablet TAKE 1 TABLET EVERY DAY (MUST MAKE APPOINTMENT FOR FURTHER REFILLS) 90 Tablet 0 ??? metoprolol succinate ER (TOPROL-XL) 100 mg Oral Tablet Sustained Release 24 hr TAKE 1 TABLET EVERY DAY 90 Tablet 0 ??? MULTI-VITAMIN ORAL Take by mouth daily. ??? naproxen sodium (ANAPROX) 220 mg Oral Tablet Take 220 mg by mouth as needed. ??? Saw [place] Fruit 450 mg Oral Capsule Take 450 mg by mouth 3 times daily. supposed to help with urinary frequency ??? tamsulosin (FLOMAX) 0.4 mg Oral Capsule Take 1 Capsule by mouth daily. TAKE 1 CAPSULE EVERY day90 Capsule 0 ??? vit A/vit C/vit E/zinc/copper (ICAPS AREDS ORAL) Take by mouth daily. Allergies Allergen Reactions ??? Crestor [Rosuvastatin] Other (See Comments) Leg weakness Social Social History Socioeconomic History ??? Marital status: Spouse name: None ??? Number of children: None ??? Years of education: None ??? Highest education level: None Tobacco Use ??? Smoking status: Former Packs/day: 2.00 Years: 50.00 Pack years: 100.00 Types: Pipe, Cigarettes Quit date: 01/03/2016 Years since quittin.8 ??? Smokeless tobacco: Never Substance and Sexual [...] ??? Quadrivalent Influenza High Dose 08/13/2020, 09/12/2021, 09/29/2022 ??? Td, Unspecified Formulation 07/17/2012 Patient Care Team: Dora Hernandez MD as PCP - General (Family Medicine) Objective Vitals: 10/31/22 0942 BP: 142/76 Pulse: 87 Resp: 16 Temp: 97.9 ??F (36.6 ??C) TempSrc: Oral SpO2: 98% Weight: 250 lb (113.4 kg) Height: 6' 3 (1.905 m) Physical Exam Constitutional: Speaks in complete sentences. Non-toxic. HEENT: mucosa moist Resp: non-labored respirations Abdomen: No suprapubic tenderness, not distended, +BS MSK: no CVA tenderness Neuro: alert and oriented Results for orders placed or performed in visit on 10/31/22 [facility] Result Value Ref Range UA Color POC Red Color UA Appear POC Cloudy (A) Clear UA Gluc POC Negative Negative mg/dL UA Bili POC Large (A) Negative UA Ketones POC 15 (A) Negative mg/dL UA SG POC 1.010 1.001 - 1.035 no units UA Blood POC Large (A) Negative UA pH POC 5.0 5.0 - 8.0 pH UA Protein POC >=300 (A) Negative mg/dL UA Urobilinogen POC 4.0 (A) 0.2, 1.0 UA Nitrite POC Negative Negative UA Leuk Est POC Large (A) Negative Assessment and Plan Jac was seen today for urinary frequency. Diagnoses and all orders for this visit: Urine frequency - URINE CULTURE (NO STAIN); Future - AMB REFERRAL TO UROLOGY Other orders - [facility] - cefdinir (OMNICEF) 300 mg Oral Capsule; Take 1 Capsule by mouth 2 times daily for 7 days. Discussed with patient and the exact cause of the gross hematuria is unknown at this time. Discussed potential for under complication besides urinary tract infection. Discussed with patient and based on urinalysis we will treat for urinary tract infection. Antibiotic prescription for cefdinir sent to pharmacy. Use only as prescribed. Discussed since he has had cloudy blood in his urine 3 times now in the past year or so, he needs to follow-up with urology as soon as possible for further evaluation and management. Urgent referral written. Call and set up appointment soon as possible. Educated on importance of staying hydrated with water, eating healthy avoid sugar, and obtaining adequate sleep to support immune system function. If symptoms become severely worse go to Emergency Department. Pt verbalized understanding and agreement with this plan.?? No follow-ups on file. Education provided regarding the care plan and instructions listed on the After Visit Summary [AVS]for today's visit. This chart was completed using [employer] voice recognition technology and may contain unintended errors. Michael Hernandez APRN documented in this encounter Miscellaneous Notes * Patient Instructions - Michael Hernandez APRN - 10/31/2022 9:30 AM EST Discussed with patient and based on urinalysis we will treat for urinary tract infection. Antibiotic prescription for cefdinir sent to pharmacy. Use only as prescribed. Discussed since he has had cloudy blood in his urine 3 times now in the past year or so, he needs to follow-up with urology as soon as possible for further evaluation and management. Urgent referral written. Call and set up appointment soon as possible. Educated on importance of staying hydrated with water, eating healthy avoid sugar, and obtaining adequate sleep to support immune system function. If symptoms become severely worse go to Emergency Department. Pt verbalized understanding and agreement with this plan.?? documented in this encounter Plan of Treatment Scheduled Referrals Name Type Priority Associated Diagnoses Orde r Schedule AMB REFERRAL TO UROLOGY Outpatient Referral Routine Urine frequency Ordered: 10/31/2022 documented as of this encounter Goals Goal [...] Diagnosis Comments URINE CULTURE (NO STAIN) Routine 10/31/2022 9:45 AM EST Urine frequency [facility] P[facility] Routine 10/31/2022 9: 42 AM EST Urine frequency documented in this encounter Results * URINE CULTURE (NO STAIN) (10/31/2022 9:45 AM EST) Culture Multiple bacterial species isolated from urine consistent with urogenital commensal organisms. 11/02/2022 5:36 AM EST PREFERRED [facility], [facility] Urine URINE SPECIMEN COLLECTION, CLEAN CATCH / Unknown 10/31/2022 9:45 AM EST 10/31/2022 9:45 AM EST Michael Hernandez MD DO [facility] MICROBIOLOGY - GENERAL ORDERABLES Final Result [facility] [address] [facility] , [place] [address] * (ABNORMAL) [facility] (10/31/2022 9:42 AM EST) UA Color POC Red Color 10/31/2022 9:45 AM EST [facility] UA Appear POC Cloudy(A) Clear 10/31/2022 9:45 AM EST [facility] UA Gluc POC Negative Negative mg/dL 10/31/2022 9:45 AM EST [facility] UA Bili POC Large(A) Negative 10/31/2022 9:45 AM EST [facility] UA Ketones POC 15(A) Negative mg/dL 10/31/2022 9:45 AM EST [facility] UA SG POC 1.010 1.001 - 1.035 no units 10/31/2022 9:45 AM EST [facility] UA Blood POC Large(A) Negative 10/31/2022 9:45 AM EST [facility] UA pH POC 5.0 5.0 - 8.0 pH 10/31/2022 9:45 AM EST [facility] UA Protein POC >=300(A) Negative mg/dL 10/31/2022 9:45 AM EST [facility] UA Urobilinogen POC 4.0(A) 0.2, 1.0 10/31/2022 9:45 AM EST [facility] UA Nitrite POC Negative Negative 10/31/2022 9:45 AM EST [facility] UA Leuk Est POC Large(A) Negative 9:45 AM EST [facility] Urine URINE SPECIMEN COLLECTION / Unknown 10/31/2022 9:42 AM EST 10/31/2022 9:45 AM EST Michael Hernandez MD DO [facility] POINT OF CARE TEST ORD ERABLES Final Result [facility] [address] [place] [address] documented in this encounter Visit Diagnoses Diagnosis Urine frequency- Primary Urinary frequency Urinary tract infection with hematuria, site unspecified documented in this encounter Additional Health Concerns Assessment Noted Time A fall risk assessment has been complete d for the patient 09/29/2022 10:09 AM EST documented as of this encounter Care Teams Timekeeper Relationship Specialty Start Date End Date Dora Hernandez MD [address] [facility] [place] [address] PCP - General Family Medicine 12/24/15 documented as of this encounter
--- OUTSIDE RECORDS SUMMARY | 2024-09-12 12:43 | XMS_ITS | Encounter Summary ---
Author Organization [place] [address] Care Team Providers Care Microbiological Lab Technician Name Role Phone Dora Hernandez MD Primary Care Provider [phone] Reason for Visit * Reason Comments Medication Refill Encounter Details Date Type Department Care Team (Late st Contact Info) Description 12/16/2022 Refill [facility] [address] [facility] [place] [address] Dora Hernandez MD [address] [place] [address] Medication Refill Social History Tobacco [...] TAKE 1 TABLET EVERY DAY 90 Tablet 12/17/2022 02/25/2023 documented in this encounter Miscellaneous Notes * Telephone Encounter - Xenia Wang CPhT - 12/17/2022 10:02 AM EST metoprolol Medication Refill Protocol passed. Jesse Action: Approved [...] 24 hr TAKE 1 TABLET EVERY DAY 07/10/2022 12/17/2022 documented as of this encounter Additional Health Concerns Assessment Noted Time A fall risk assessment has been complete d for the patient 09/29/2022 10:09 AM EST documented as of this encounter Care Teams Microbiological Lab Technician Relationship Specialty Start Date End Date Dora Hernandez MD [address] [place] [address] PCP - General Family Medicine 12/24/15 documented as of this encounter
--- OUTSIDE RECORDS SUMMARY | 2024-09-12 12:43 | XMS_ITS | Encounter Summary ---
Author Organization [place] [address] Care Team Providers Care Hand Dry Cleaner Name Role Phone Dora Hernandez MD Primary Care Provider [phone] Reason for Referral * Consultation (Routine) - Closed Specialty Diagnoses / Procedures Referred By Contac t Referred To Contact Diagnoses Bradycardia Dora Hernandez MD [address] [place] [address] Phone: tel: fax: Joseph Lake MD [address] [facility] [address] [place] [address] Phone: tel: fax: Referral ID Status Reason Start Date Expiration Date V isits Requested Visits Authorized [id number] Closed Specialty Services Required 02/25/2023 02/25/2024 99 99 Reason for Visit * Reason Comments Hospital Follow Up ED follow up Encounter Details Date Type Department Care Team (Late st Contact Info) Description 02/25/2023 1:00 PM EDT Office Visit [facility] [address] [facility] [place] [address] Dora Hernandez MD [address] [facility] [place] [address] Enlarged prostate with urinary retention (Primary Dx); Urinary tract infection associated with indwelling urethral catheter, subsequent encounter; Peripheral polyneuropathy; Lumbar degenerative disc disease; Bradycardia; Anxiety disorder, unspecified type; Essential hypertension; Wears hearing aid in both ears Social History Tobacco Use Types Packs/Day Years [...] Sign Reading Time Taken Comments Blood Pressure 104/68 02/25/2023 1:08 PM EDT Pulse 52 02/25/2023 1:08 PM EDT Temperature 36.7 ??C (98.1 ??F) 02/25/2023 1:08 PM ED T Respiratory Rate - - Oxygen Saturation 97% 02/25/2023 1:08 PM EDT Inhaled Oxygen Concentration - - Weight 117.9 kg (260 lb) 02/25/2023 1:08 PM EDT Height 190.5 cm (6' 3 ) 02/25/2023 1:08 PM EDT Body Mass Index 32.5 02/25/2023 1:08 PM EDT documented in this encounter Functional Status [...] Tablet by mouth daily. 90 Tablet 1 02/25/2023 10/07/2023 metoprolol succinate ER (TOPROL-XL) 50 mg Oral Tablet Sustained Release 24 hrIndications:Esse ntial hypertension Take 1 Tablet by mouth daily. 90 Tablet 1 02/25/2023 03/31/2023 LORazepam (ATIVAN) 0.5 mg Oral TabletIndications: Anxiety disorder, unspecified type Take 1 Tablet by mouth 2 times daily as needed for Anxiety. 30 Tablet 02/25/2023 05/26/2023 amLODIPine (NORVASC) 5 mg Oral TabletIndications: Essential hypertension Take 1 Tablet by mouth daily. 90 Tablet 1 02/25/2023 02/25/2023 documented in this encounter Progress Notes * Dora Hernandez MD - 02/25/2023 1:00 PM EDT Assessment Diagnoses and all orders for this visit: Enlarged prostate with urinary retention - REFERRED BACK TO SPECIALIST Urinary tract infection associated with indwelling urethral catheter, subsequent encounter Symptoms have resolved. Finished abx. Peripheral polyneuropathy, chronic - STABLE, PATIENT HAS NO ISSUES Lumbar degenerative disc disease - STABLE, PATIENT HAS NO ISSUES Lumbar MRI results reviewed with pt. Bradycardia, asymptomatic. - AMB REFERRAL TO CARDIOLOGY Pt follows with Dr Lake. Anxiety disorder, unspecified type - LORazepam (ATIVAN) 0.5 mg Oral Tablet; Take 1 Tablet by mouth 2 times daily as needed for Anxiety. Dispense: 30 Tablet; Refill: 0 - STABLE, PATIENT HAS NO ISSUES Essential hypertension - metoprolol succinate ER (TOPROL-XL) 50 mg Oral Tablet Sustained Release 24 hr; Take 1 Tablet by mouth daily. Dispense: 90 Tablet; Refill: 1 - amLODIPine (NORVASC) 10 mg Oral Tablet; Take 1 Tablet by mouth daily. Dispense: 90 Tablet; Refill: 1 - STABLE, PATIENT HAS NO ISSUES Wears hearing aid in both ears PDMP reviewed. Last filled GBP on 02/23/23; Ativan on 09/29/22. UDS UTD. No red flags. Chronic LBP and Neuropathy. Pt declines PT and Spine Ortho consult at this time. Tylenol prn. Cont GBP. Fall precautions. Use cane at all times. Decrease BB to 50 mg QD d/t Bradycardia. Asymptomatic. Advised pt/ to check BP/HR periodically at home. He will sched appt with Dr Lake (pt's Maintenance Instructor). Pt to keep appt with Dr Levine. Need to sched Chest CT. F/u in 4 months, sooner prn. Progress Note: Vitals: 02/25/23 1308 BP: 104/68 BP Location: Left arm Patient Position: Sitting Pulse: 52 Temp: 98.1 ??F (36.7 ??C) TempSrc: Temporal SpO2: 97% Weight: 260 lb (117.9 kg) Height: 6' 3 (1.905 m) SUBJECTIVE: Chief Complaint Patient presents with ??? Hospital Follow Up ED follow up HPI: Patient was seen in the ER due to Riggs catheter malfunction. Symptoms were relieved after Irggs catheter was changed. Finished abx. No fever. Low back pain and neuropathy. Doing well on GBP and cane. He still plays golf. Denies any s/e from GBP. No falls. Controlled Substance Common Conditions Interval Assessment: Anxiety: Jac Garvin is here for follow up of chronic anxiety and medication management. Currently, he reports anxiety level as controlled with current treatments in place. He reports taking current medication <1 times per week. 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 He isnot having side effects from medications. He has abstained from alcohol while requiring this medication. Current limitations of anxiety symptoms include: ability to cope with day to day stress, and situations, without medication Doing well, No SE's with medication. No evidence of abuse/diversion. Pt informed and aware of medication's potential for abuse/dependence. Functional goal/goals of treatment: Abort anxiety attacks. Controlled Substance Prescribing Management: As part of today's visit Jac is also being followedfor controlled substance management for anxiety. Details of the progress of the monitored conditionare noted in that section of the HPI. The controlled substance flow sheet has been reviewed. Review of Systems OBJECTIVE: Physical Exam Constitutional: Appearance: He is not ill-appearing or diaphoretic. HENT: Head: Normocephalic and atraumatic. Cardiovascular: Rate and Rhythm: Normal rate and regular rhythm. Pulmonary: Effort: Pulmonary effort is normal. Breath sounds: Normal breath sounds. Musculoskeletal: Right lower leg: Edema present. Left lower leg: Edema present. Neurological: General: No focal deficit present. Mental Status: He is alert and oriented to person, place, and time. Psychiatric: Mood and Affect: Mood normal. Behavior: Behavior normal. documented in this encounter Plan of Treatment Scheduled Referrals Name Type Priority Associated Diagnoses Order Schedule AMB REFERRAL TO CARDIOLOGY Outpatient Referral Routine Bradycardia Ordered: 02/25/2023 documented as of this encounter Goals Goal [...] as of this encounter Visit Diagnoses Diagnosis Enlarged prostate with urinary retention- Primary Hypertrophy of prostate with urinary obstruction and other lower urinary tract symptoms (LUTS) Urinary tract infection associated with indwelling urethral catheter, subsequent encounter Peripheral polyneuropathy Unspecified hereditary and idiopathic peripheral neuropathy Lumbar degenerative disc disease Degeneration of lumbar or lumbosacral intervertebral disc Bradycardia Other specified cardiac dysrhythmias Anxiety disorder, unspecified type Essential hypertension Unspecified essential hypertension Wears hearing aid in both ears documented in this encounter Discontinued Medications Medication Sig Discontinue Reason Start Date End Da te naproxen sodium (ANAPROX) 220 mg Oral Tablet Take 220 mg by mouth as needed. Patient discharge 02/25/2023 Saw [place] Fruit 450 mg Oral Capsule Take 450 mg by mouth 3 times daily. supposed to help with urinary frequency Patient discharge 02/25/2023 amLODIPine (NORVASC) 10 mg Oral TabletIndications:Essen tial hypertension Take 1 Tablet by mouth daily. Reorder 01/06/2023 02/25/2023 LORazepam (ATIVAN) 0.5 mg Oral TabletIndications:Anxie ty disorder, unspecified type Take 1 Tablet by mouth every 8 hours as needed for Anxiety. Reorder 09/29/2022 02/25/2023 metoprolol succinate ER (TOPROL-XL) 100 mg Oral Tablet Sustained Release 24 hr TAKE 1 TABLET EVERY DAY Reorder 12/17/2022 02/25/2023 amLODIPine (NORVASC) 5 mg Oral TabletIndications:Essen tial hypertension Take 1 Tablet by mouth daily. Reorder 02/25/2023 02/25/2023 sulfamethoxazole-trimet hoprim (BACTRIM DS) 800-160 mg Oral Tablet DELETE-Therapy completed 12/14/2022 02/25/2023 documented as of this encounter Historical Medications * This list may reflect changes made after this encounter. PSYLLIUM HUSK, ASPARTAME, ORAL Take by mouth. added in this encounter Orders Nursing Count Last Ordered Date First Orde red Date REFERRED BACK TO SPECIALIST 1 02/25/2023 STABLE, PATIENT HAS NO ISSUES 1 02/25/2023 documented in this encounter Additional Health Concerns Assessment Noted Time A fall risk assessment has been complete d for the patient 09/29/2022 10:09 AM EST documented as of this encounter Care Teams Hand Dry Cleaner Relationship Specialty Start Date End Date Dora Hernandez MD [address] [facility] [address] [place] [id number] PCP - General Family Medicine 12/24/15 documented as of this encounter
--- OUTSIDE RECORDS SUMMARY | 2024-09-12 12:43 | XMS_ITS | Encounter Summary ---
Author Organization [place] [address] Care Team Providers Care Dessert Cup Machine Feeder Name Role Phone Dora Hernandez MD Primary Care Provider [phone] Reason for Visit * Reason Comments Drug / Alcohol Assessment UDS Encounter Details Date Type Department Care Team (Latest Contact Info) Description 05/03/2023 11:30 AM EDT Clinical Support [facility] Gloria Leon [address] [place] [address] Radha Jennifer Luis Armando, A [address] [place] [id number] Encounter for long-term (current) use of medications Social History Tobacco Use Types Packs/Day Years [...] Progress Notes * Jennifer Garcia RMA - 05/03/2023 11:30 AM EDT Urine drug screen documented in this encounter Plan of Treatment [...] Procedure Name Priority Date/Time Associated Diagnosis Comments COMPLIANCE BENZODIAZEPINE PANEL QUANT ONLY, URINE Routine 05/03/2023 11:53 AM EDT Encounter for long-term (current) use of medications COMPLIANCE GABAPENTIN/PREGABALIN, URINE Routine 05/03/2023 11:53 AM EDT Encounter for long-term (current) use of medications documented in this encounter Results * (ABNORMAL) COMPLIANCE GABAPENTIN/PREGABALIN, URINE (05/03/2023 11:53 AM EDT) Gabapentin >2,000(H) Cutoff 50 ng/mL ng/mL 05/04/2023 9:45 AM EDT [facility] [employer] Comment:e.g, Neurontin Pregabalin <50 Cutoff 50 ng/mL ng/mL 05/04/2023 9:45 AM EDT [facility] Comment:Lyrica Urine Creatinine 29.5 mg/dL 05/04/20 9:45 AM EDT [facility] Comment: Greater than 20: Consistent with valid sample Greater than 2 but less than 20: Possible dilution Less than 2: Questionable valid sample Greater than 20: Consistent with valid sample Greater than 2 but less than 20: Possible dilution Less than 2: Questionable valid sample Urine URINE SPECIMEN COLLECTION / Unknown 05/03/2023 11:53 AM EDT 05/03/2023 11:53 AM EDT Narrative [facility] [employer] - 05/04/2023 9:45 AM EDT The absence of expected drug(s), and/or drug metabolite(s), may indicate non-compliance, diluted or adulterated urine, poor drug absorption, concentration of drug below the cut-off, timing of specimen collection relative to administration of drug, or limitations of testing. If results do not fit clinical expectations, please reach out to the Toxicology department at [phone]. Specimens are held for 7 days. This test was developed, and its performance characteristics determined by [facility] ([facility]). ??It has not been cleared or approved by the FDA. This test is used for clinical purposes. It should not be regarded as investigational or for research. [facility] is certified under the Clinical Laboratory Improvement Amendments (CLIA) as qualified to perform high complexity clinical laboratory testing. Dora Hernandez MD URINE ORDERABLES Final Result [employer] [facility] [address] , [place] [address] * COMPLIANCE BENZODIAZEPINE PANEL QUANT ONLY, URINE (05/03/2023 11:53 AM EDT) [facility] Medications Expected Ativan(T M) (lorazep am) 05/04/2023 9:45 AM EDT [facility] Alprazolam <8 Cutoff 8 ng/mL ng/mL 05/04/2023 9:45 AM EDT [facility] Comment:e.g, Xanax, Niravam alpha-Hydroxyalprazolam <25 Cutoff 2 5 ng/mL ng/mL 05/04/2023 9:45 AM EDT [facility] Comment:Metabolite of Alpraz olam Clonazepam <10 Cutoff 10 ng/mL ng/mL 05/04/2023 9:45 AM EDT [facility] Comment:e.g., Klonopin, Clon opin 7-Aminoclonazepam <25 Cutoff 25 ng/mL ng/mL 05/04/2023 9:45 AM EDT [facility] Comment:Metabolite of Clonaz epam Diazepam <10 Cutoff 10 ng/mL ng/mL 05/04/2023 9:45 AM EDT [facility] Comment:e.g, Valium, Diastat Nordiazepam <25 Cutoff 25 ng/mL ng/mL 05/04/2023 9:45 AM EDT [facility] Comment:Metabolite of Chlord iazepoxide(Librium), [...] 05/04/2023 9:45 AM EDT [facility] Comment:Metabolite of Fluraz epam Lorazepam <50 Cutoff 50 ng/mL ng/mL 05/04/2023 9:45 AM EDT [facility] Comment:e.g., Ativan Lorazepam Glucuronide <50 Cutoff 50 ng/mL ng/mL 05/04/2023 9:45 AM EDT [facility] Comment:Metabolite of Loraze juan Midazolam <50 Cutoff 50 ng/mL ng/mL 05/04/2023 9:45 AM EDT [facility] Comment:e.g., Versed alpha-hydroxymidazolam <50 Cutoff 50 ng/mL ng/mL 05/04/2023 9:45 AM EDT [facility] Comment:Metabolite of Versed Oxazepam <50 Cutoff 50 ng/mL ng/mL 05/04/2023 9:45 AM EDT [facility] Comment:e.g., Serax; also Me tabolite of Temazepam, and Nordiazepam Oxazepam Glucuronide <50 Cutoff 50 ng/mL ng/mL 05/04/2023 9:45 AM EDT [facility] Comment:Metabolite of Oxazep am Temazepam <50 Cutoff 50 ng/mL ng/mL 05/04/2023 9:45 AM EDT [facility] Comment:e.g., Restoril; also Metabolite of Diazepam Temazepam Glucuronide <50 Cutoff 50 ng/mL ng/mL 05/04/2023 9:45 AM EDT [facility] Comment:Metabolite of Temaze juan and Diazepam Triazolam <50 Cutoff 50 ng/mL ng/mL 05/04/2023 9:45 AM EDT [facility] Comment:e.g., Halcion alpha-hydroxytriazolam <50 Cutoff 50 ng/mL ng/mL 05/04/2023 9:45 AM EDT [facility] Comment:Metabolite of Triazo chavez Urine Creatinine 29.5 mg/dL 05/04/20 9:45 AM EDT [facility] Comment: Greater than 20: Consistent with valid sample Greater than 2 but less than 20: Possible dilution Less than 2: Questionable valid sample Urine URINE SPECIMEN COLLECTION / Unknown 05/03/2023 11:53 AM EDT 05/03/2023 11:53 AM EDT Narrative [facility] - 05/04/2023 9:45 AM EDT The absence of expected drug(s), and/or drug metabolite(s), may indicate non-compliance, diluted or adulterated urine, poor drug absorption, concentration of drug below the cut-off, timing of specimen collection relative to administration of drug, or limitations of testing. If results do not fit clinical expectations, please reach out to the Toxicology department at [phone]. Specimens are held for 7 days. This test was developed, and its performance characteristics determined by [facility] ([facility]). ??It has not been cleared or approved by the FDA. This test is used for clinical purposes. It should not be regarded as investigational or for research. [facility] is certified under the Clinical Laboratory Improvement Amendments (CLIA) as qualified to perform high complexity clinical laboratory testing. Dora Hernandez MD URINE ORDERABLES Final Result Performing Organization Address City/State/[facility] Co de Phone Number [employer] [address] [place] [address], [place] [address] documented in this encounter Visit Diagnoses Diagnosis Encounter for long-term (current) use of medications Encounter for long-term (current) use of other medications documented in this encounter Additional Health Concerns Assessment Noted Time A fall risk assessment has been complete d for the patient 09/29/2022 10:09 AM EST documented as of this encounter Care Teams Dessert Cup Machine Feeder Relationship Specialty Start Date End Date Dora Hernandez MD [address] [address] [address] PCP - General Family Medicine 12/24/15 documented as of this encounter
--- OUTSIDE RECORDS SUMMARY | 2024-09-12 12:44 | XMS_ITS | Encounter Summary ---
Author Organization [place] [address] Care Team Providers Care Engineer Soils Name Role Phone Dora Hernandez MD Primary Care Provider [phone] Reason for Visit * Reason Comments Medication Refill Encounter Details Date Type Department Care Team (Late st Contact Info) Description 06/08[facility] [address] [facility] [address] [place] [address] Dora Hernandez MD [address] [place] [address] Medication Refill Social History Tobacco Use Types Packs/Day Years Used Date Smoking Tobacco: Former Cigarettes 2 50 0 01/02/1966 - 01/03/2016 Pipe Smokeless Tobacco: Never Alcohol Use Standard Drinks/Week Comments Yes 0 (1 standard drink = 0.6 oz pur e alcohol) beer and wine PHQ-2 Answer Date Recorded PHQ-2 Total Score 0 04/17/2021 Sex and Gender Information Value Date Recorded Sex Assigned at Not on file Legal Sex Male 2:45 AM EDT Gender Identity Not on file Sexual Orientation Not on file documented as of this encounter Functional Status * Is the person deaf or does he/she have serious difficulty hearing? Answer Date of Assessment Author No 09/12/2021 11:11 AM Elsi Santo MA * Is the person blind or does he/she have serious difficulty seeing even when wearing glasses? Answer Date of Assessment Author No 09/12/2021 11:11 AM Elsi Santo MA * Does this person have serious difficulty walking or climbing stairs? Answer Date of Assessment Author No 09/12/2021 11:11 AM Elsi Santo MA * Does this person have difficulty dressing or bathing? Answer Date of Assessment Author No 09/12/2021 11:11 AM CODY Redd Elsiyesenia Freeman MA * Because of a physical, mental or emotional condition, does this person have difficulty doing errands alone such as visiting a doctor's office or shopping? Answer Date of Assessment Author No 09/12/2021 11:11 AM CODY Redd Elsi MIK Freeman documented as of this encounter Mental Status * Because of a physical, mental or emotional condition, does this person have serious difficulty concentrating, remembering or making decisions? Answer Entry Date Author No 09/12/2021 11:11 AM Elsi Santo MA documented in this encounter Ordered Prescriptions Prescription Sig Dispense Quantity Refills Last Filled Start Date End Date losartan (COZAAR) 50 mg Oral TabletIndications: Essential hypertension TAKE 1 TABLET EVERY DAY (MUST MAKE APPOINTMENT FOR FURTHER REFILLS) 90 Tablet 06/09/2022 3 documented in this encounter Miscellaneous Notes * Telephone Encounter - Sanjiv Christensen CPhT - 06/09/2022 1:23 PM EDT Losartan Medication Refill Protocol passed. Jesse Action: Approved refills to noted follow-up date by provider or protocol if no follow-up date noted. LV 04/13/22 - return around 10/13/22 documented in this encounter Plan of Treatment [...] al hypertension TAKE 1 TABLET EVERY DAY 04/06/2022 06/09/2022 documented as of this encounter Additional Health Concerns Assessment Noted Time A fall risk assessment has been complete d for the patient 04/17/2021 3:08 PM EDT documented as of this encounter Care Teams Engineer Soils Relationship Specialty Start Date End Date Dora Hernandez MD [address] [facility] [place] [address] PCP - General Family Medicine 12/24/15 documented as of this encounter
--- OUTSIDE RECORDS SUMMARY | 2024-09-12 12:44 | XMS_ITS | Encounter Summary ---
Author Organization [place] [address] Care Team Providers Care Welt Sole Layer Name Role Phone Dora Hernandez MD Primary Care Provider [phone] Reason for Referral * MRI/CAT Scan (Urgent) - Closed Specialty Diagnoses / Procedures Referred By Hal thompson Referred To Contact Radiology Diagnoses Gross hematuria Right flank pain Procedures CT ABDOMEN PELVIS WO ORAL OR IV CONTRAST Dora Hernandez MD [address] [place] [address] Phone: tel: fax: Referral ID Status Reason Start Date Expiration Date Visits Re quested Visits Authorized [id number] Closed 04/13/2022 04/13/2023 1 1 Reason for Visit * MRI/CAT Scan (Urgent) - Closed Specialty Diagnoses / Procedures Referred By Hal thompson Referred To Contact Radiology Diagnoses Gross hematuria Right flank pain Procedures CT ABDOMEN PELVIS WO ORAL OR IV CONTRAST Dora Hernandez MD [address] [facility] [place] [address] Phone: tel: fax: Referral ID Status Reason Start Date Expiration Date Visits Re quested Visits Authorized [id number] Closed 04/13/2022 04/13/2023 1 1 Encounter Details Date Type Department Care Team (Latest Contact Info) Description 04/14/2022 1:00 PM EDT - 04/14/2022 11:59 PM EDT Hospital Encounter [facility] [address] [place] [address] Dora Hernandez MD [address] [facility] [address] [place] [address] Gross hematuria; Right flank pain Discharge Disposition: Home or Self Care Social [...] suspected to have Coronavirus/COVID-19? No / Unsure 04/14/2022 12:58 PM EDT documented as of this encounter Functional [...] 09/12/2021 11:11 AM Elsi Santo MA * Because of a physical, mental or emotional condition, does this person have difficulty doing errands alone such as visiting a doctor's office or shopping? Answer Date of Assessment Author No 09/12/2021 11:11 AM Elsi Santo MA documented as of this encounter Mental Status * Because of a physical, mental or emotional condition, does this person have serious difficulty concentrating, remembering or making decisions? Answer Entry Date Author No 09/12/2021 11:11 AM Elsi Santo MA documented in this encounter Medications at Time of Discharge amLODIPine (NORVASC) 10 mg Oral TabletIndications: Essential hypertension TAKE 1 TABLET EVERY DAY 90 Tablet 2 02/27/2022 3 ezetimibe (ZETIA) 10 mg Oral Tablet TAKE ONE TABLET BY MOUTH DAILY 30 Tablet 2 12/30/2021 2 fluticasone propionate (FLONASE) 50 mcg/actuation Nasl Anthony, SuspensionIndicati ons:Seasonal allergic rhinitis, unspecified trigger USE 2 SPRAYS NASALLY EVERY DAY 48 g 04/09/2022 2 losartan (COZAAR) 50 mg Oral TabletIndications: Essential hypertension TAKE 1 TABLET EVERY DAY 90 Tablet 04/06/2022 2 metoprolol succinate ER (TOPROL-XL) 100 mg Oral Tablet Sustained Release 24 hr TAKE 1 TABLET EVERY DAY 90 Tablet 02/18/2022 2 tamsulosin (FLOMAX) 0.4 mg Oral CapsuleIndications :BPH without urinary obstruction TAKE 1 CAPSULE EVERY NIGHT 90 Capsule 1 02/24/2022 2 documented as of this encounter Discharge Disposition [...] Name Priority Date/Time Associated Diagnosis Comments CT ABDOMEN PELVIS WO ORAL OR IV CONTRAST GRACE 04/14/2022 1:19 PM EDT Gross hematuria Right flank pain documented in this encounter Results * CT ABDOMEN PELVIS WO ORAL OR [...] CONTRAST, ??04/14/2022 1:19 PM CLINICAL HISTORY: ??R31.0-Gross [id number]-CM R10.9-Unspecified abdominal [id number]-CM COMPARISON: ??Head CT January 16, 2016. PROCEDURE [...] CONTRAST, 04/14/2022 1:19 PM CLINICAL HISTORY: R31.0-Gross [id number]-CM R10.9-Unspecified abdominal [id number]-CM COMPARISON: Head CT January 16, 2016. PROCEDURE [...] the ordering clinician. Dora Hernandez MD IMG CT ORDERABLES Final Result documented in this encounter Visit Diagnoses Diagnosis Gross hematuria Right flank pain Abdominal pain, unspecified site documented in this encounter Additional Health Concerns Assessment Noted Time A fall risk assessment has been complete d for the patient 04/17/2021 3:08 PM EDT documented as of this encounter Care Teams Welt Sole Layer Relationship Specialty Start Date End Date Dora Hernandez MD [address] [facility] [address] [place], [place] [address] PCP - General Family Medicine 12/24/15 documented as of this encounter
--- OUTSIDE RECORDS SUMMARY | 2024-09-12 12:44 | XMS_ITS | Encounter Summary ---
Author Organization [place] [address] Care Team Providers Care Scoop Operator Name Role Phone Dora Hernandez MD Primary Care Provider [phone] Reason for Referral * MRI/CAT Scan (Urgent) - Closed Specialty Diagnoses / Procedures Referred By Contac t Referred To Contact Radiology Diagnoses Gross hematuria Right flank pain Procedures CT ABDOMEN PELVIS WO ORAL OR IV CONTRAST Dora Hernandez MD [address] [place] [address] Phone: tel: fax: Referral ID Status Reason Start Date Expiration Date Visits Re quested Visits Authorized [id number] Closed 04/13/2022 04/13/2023 1 1 Reason for Visit * Reason Comments Hematuria Hypertension Controlled Substance Monitoring Gabapent in Encounter Details Date Type Department Care Team (Late st Contact Info) Description 04/13/2022 11:20 AM EDT Office Visit [facility]RI[facility] [address] [place] [address] Dora Hernandez MD [address] [place] [address] Gross hematuria (Primary Dx); BPH without urinary obstruction; Essential hypertension; Peripheral polyneuropathy; Anxiety disorder, unspecified type; Bilateral hearing loss, unspecified hearing loss type; Right flank pain Social History Tobacco Use Types Packs/Day Years [...] Sign Reading Time Taken Comments Blood Pressure 100/68 04/13/2022 11:20 AM EDT Pulse 72 04/13/2022 11:20 AM EDT Temperature 36.7 ??C (98.1 ??F) 04/13/2022 11:20 AM E DT Respiratory Rate - - Oxygen Saturation 96% 04/13/2022 11:20 AM EDT Inhaled Oxygen Concentration - - Weight 115.7 kg (255 lb) 04/13/2022 11:20 AM EDT Height 190.5 cm (6' 3 ) 04/13/2022 11:20 AM EDT Body Mass Index 31.87 04/13/2022 11:20 AM EDT documented in this encounter Functional [...] mouth 2 times daily. 120 Capsule 4 05/06/2022 2 LORazepam (ATIVAN) 0.5 mg Oral TabletIndications:An xiety disorder, unspecified type Take 1 Tablet by mouth every 8 hours as needed for Anxiety. 30 Tablet 04/13/2022 2 documented in this encounter Progress Notes * Dora Hernandez MD - 04/13/2022 11:20 AM EDT Vitals: 04/13/22 1120 BP: 100/68 BP Location: Left arm Patient Position: Sitting Pulse: 72 Temp: 98.1 ??F (36.7 ??C) TempSrc: Temporal SpO2: 96% Weight: 255 lb (115.7 kg) Height: 6' 3 (1.905 m) SUBJECTIVE: Chief Complaint Patient presents with ??? Hematuria ??? Hypertension ??? Controlled Substance Monitoring Gabapentin HPI: C/o R flank pain x 2 weeks. Been working around the yard. Played golf yesterday - back pain, R and Blood in urine. No n/v/fever. No h/o kidney stones. Took aleve. Feels better today. Pain scale 7/10. PN. Doing well on gabapentin. Controlled Substance Common Conditions Interval Assessment: Anxiety: Jac Garvin is here for follow up of chronic anxiety and medication management. Currently, he reports anxiety level as controlled with current treatments in place. He reports taking current medications 1 times per day PRN. Still has 5 tabs from last rx (#30 in Aug 2021). 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 Constitutional: General: He is not in acute distress. Appearance: He is well-developed. HENT: Head: Normocephalic and atraumatic. Cardiovascular: Rate and Rhythm: Normal rate and regular rhythm. Pulmonary: Effort: Pulmonary effort is normal. Breath sounds: Normal breath sounds. Abdominal: General: There is no distension. Palpations: Abdomen is soft. Tenderness: There is no abdominal tenderness. There is no left CVA tenderness. Musculoskeletal: Right lower leg: No edema. Left lower leg: No edema. Neurological: Mental Status: He is alert and oriented to person, place, and time. Cranial Nerves: No cranial nerve deficit. Psychiatric: Mood and Affect: Mood normal. Behavior: Behavior normal. Results for orders placed or performed in visit on 04/13/22 POCT URINALYSIS AUTOMATED Result Value Ref Range Color, UA brown CLEAR,YELLOW,ORANGE,RUST Clarity, UA cloudy CLEAR,CLOUDY Glucose, UA neg G/DL% Bilirubin, UA neg POS/NEG Ketones, UA negf POS/NEG Spec Grav, UA 1.020 1.001 - 1.035 G/DL Blood, UA large POS/NEG pH, UA 6.5 5.0 - 8 Protein, UA 30 POS/NEG Urobilinogen, UA 0.2 0.2 - 1.0 MG/DL Nitrite, UA neg POS/NEG Leukocytes, UA small POS/NEG Appear BF Lot Number [id number] Expiration Date 03/25/2023 SeriAl # [id number] SEP URINALYSIS POC Result Value Ref Range UA Color POC Brown Color UA Appear POC Cloudy (A) Clear UA Gluc POC Negative Negative mg/dL UA Bili POC Negative Negative UA Ketones POC Negative Negative mg/dL UA SG POC 1.020 1.001 - 1.035 no units UA Blood POC Large (A) Negative UA pH POC 6.5 5.0 - 8.0 pH UA Protein POC 30 (A) Negative mg/dL UA Urobilinogen POC 0.2 0.2, 1.0 UA Nitrite POC Negative Negative UA Leuk Est POC Small (A) Negative Assessment Diagnoses and all orders for this visit: Gross hematuria - POCT URINALYSIS AUTOMATED - SEP URINALYSIS POC - CT ABDOMEN PELVIS WO ORAL OR IV CONTRAST; Future - URINE CULTURE (NO STAIN); Future BPH without urinary obstruction Essential hypertension - COMPREHENSIVE METABOLIC PANEL; Future - CBC; Future Peripheral polyneuropathy - gabapentin (NEURONTIN) 100 mg Oral Capsule; Take 2 Capsules by mouth 2 times daily. Dispense: 120Capsule; Refill: 4 Anxiety disorder, unspecified type - LORazepam (ATIVAN) 0.5 mg Oral Tablet; Take 1 Tablet by mouth every 8 hours as needed for Anxiety. Dispense: 30 Tablet; Refill: 0 Bilateral hearing loss, unspecified hearing loss type Right flank pain - SEP URINALYSIS POC - CT ABDOMEN PELVIS WO ORAL OR IV CONTRAST; Future Pt is [place]. Has hearing aids. LE weakness better off statin. Malachi AE. He takes ativan prn. Last rx was in 08/2021 (#30). Pt was advised on indications, precautions and potential s/e of rx. Suspect nephrolithiasis. Continue flomax. Increase fluid intake. He was advised on s/sx on when to call or go the ER. * Jennifer Garcia RMA - 04/13/2022 11:20 AM EDT Venipuncture R ac #[id number] wnl documented in this encounter Miscellaneous Notes * Addendum Note - Dayna Villareal CCMA - 04/13/2022 11:20 AM EDTAddended by: DAYNA VILLAREAL on: 04/13/2022 03:20 PM Modules accepted: Orders documented in this encounter Plan of Treatment [...] Diagnosis Comments URINE CULTURE (NO STAIN) Routine 04/13/2022 3:20 PM EDT Gross hematuria CBC Routine 04/13/2022 12:11 PM EDT Essential hypertension COMPREHENSIVE METABOLIC PANEL Routine 04/13/2022 12:11 PM EDT Essential hypertension POCT URINALYSIS AUTOMATED Routine 04/13/2022 11:53 AM EDT Gross hematuria SEP URINALYSIS POC Routine 04/13/2022 11 :50 AM EDT Gross hematuria Right flank pain documented [...] CONTRAST, ??04/14/2022 1:19 PM CLINICAL HISTORY: ??R31.0-Gross hudvsgcks-OYO-55-CM R10.9-Unspecified abdominal qhyl-RHG-64-CM COMPARISON: ??Head CT January 16, 2016. PROCEDURE [...] CONTRAST, 04/14/2022 1:19 PM CLINICAL HISTORY: R31.0-Gross svvuzblzo-SPD-17-CM R10.9-Unspecified abdominal odtk-WZD-26-CM COMPARISON: Head CT January 16, 2016. PROCEDURE [...] MD IMG CT ORDERABLES Final Result * URINE CULTURE (NO STAIN) (04/13/2022 3:20 PM EDT) Culture No growth at 30 hours. 04/15/2022 6:31 AM EDT [facility] Urine URINE SPECIMEN COLLECTION, CLEAN CATCH / Unknown 04/13/2022 3:20 PM EDT 04/13/2022 3:20 PM EDT Dora Hernandez MD MICROBIOLOGY - GENERAL ORDERABL ES Final Result [facility] [address] [address] [place] [address] * (ABNORMAL) CBC (04/13/2022 12:11 PM EDT) WBC 7.4 3.7 - 10.3 x10(3)/mcL 04/13/2022 7:12 PM EDT [facility] RBC 4.54(L) 4.60 - 6.10 x10(6)/mcL 04/13/2022 7:12 PM EDT [facility] Hgb 14.2 13.7 - 17.5 g/dL 04/13/2022 7:12 PM EDT [facility] Hct 43.2 40.0 - 51.0 % 04/13/2022 7:12 PM EDT [facility] MCV 95.2 80.0 - 100.0 fL 04/13/2022 7:12 PM EDT [facility] MCH 31.3 26.0 - 34.0 pg 04/13/2022 7:12 PM EDT [facility] MCHC 32.9 30.7 - 35.5 g/dL 04/13/2022 7:12 PM EDT [facility] RDW 14.4 <=14.9 % 04/13/2022 7:12 PM EDT [facility] Platelet 294 155 - 369 x10(3)/mcL 04/13/2022 7:12 PM EDT [facility] MPV 10.6 8.8 - 12.5 fL 04/13/2022 7:12 PM EDT [facility] Blood VENOUS BLOOD / Unknown Venipuncture / Unknown 04/13/2022 12:11 PM EDT 04/13/2022 12:11 PM EDT us Dora Hernandez MD HEMATOLOGY ORDERABLES Final Res ult [facility] [address] [place] [address] * (ABNORMAL) COMPREHENSIVE METABOLIC PANEL (04/13/2022 12:11 PM EDT) Sodium 136 136 - 145 mmol/L 04/13/2022 7:21 PM EDT [facility] Potassium 4.4 3.5 - 5.0 mmol/L 04/13/2022 7:21 PM EDT [facility] Chloride 104 98 - 107 mmol/L 04/13/2022 7:21 PM EDT [facility] Total CO2 20(L) 22 - 29 mmol/L 04/13/2022 7:21 PM EDT [facility] Anion Gap 12 7 - 16 mmol/L 04/13/2022 7:21 PM EDT [facility] Calcium 8.8 8.8 - 10.4 mg/dL 04/13/2022 7:21 PM EDT [facility] Glucose Lvl 99 82 - 100 mg/dL 04/13/2022 7:21 PM EDT [facility] BUN 15 8 - 23 mg/dL 04/13/2022 7:21 PM EDT [facility] Creatinine 1.13 0.67 - 1.30 mg/dL 04/13/2022 7:21 PM EDT [facility] Albumin 4.3 3.2 - 4.6 gm/dL 04/13/2022 7:21 PM EDT [facility] Total Protein 7.1 6.4 - 8.3 gm/dL 04/13/2022 7:21 PM EDT [facility] Bili Total 0.9 0.1 - 1.4 mg/dL 04/13/2022 7:21 PM EDT [facility] ALT 19 <=41 U/L 04/13/2022 7:21 PM EDT [facility] AST 12 <=40 U/L 04/13/2022 7:21 PM EDT [facility] Alk Phos 99 40 - 129 U/L 04/13/2022 7:21 PM EDT [facility] eGFR (CKD-EPIcr 2020) 66 >=60 mL/min/1.7 3 m2 04/13/2022 7:21 PM EDT [facility] Comment:Estimated GFR was ca lculated using the CKD-EPIcr (2020) equation refit without race. The equation is recommended by the National Kidney Foundation - Citizen Of [place] Society of Nephrology Task Force. 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 Grav, UA 1.020 1.001 - 1.035 G/DL [...] ORDERABLES F inal Result SEP OFFICE * (ABNORMAL) SEP URINALYSIS POC (04/13/2022 11:50 AM EDT) UA Color POC Brown Color 04/13/2022 11:52 AM EDT [facility]P [place] UA Appear POC Cloudy(A) Clear 04/13/2022 11:52 AM EDT SEP [place] UA Gluc POC Negative Negative mg/dL 04/13/2022 11:52 AM EDT SEP [place] UA Bili POC Negative Negative 04/13/2022 11:52 AM EDT [facility] UA Ketones POC Negative Negative mg/dL 04/13/2022 11:52 AM EDT [facility] UA SG POC 1.020 1.001 - 1.035 no units 04/13/2022 11:52 AM EDT [facility] UA Blood POC Large(A) Negative 04/13/2022 11:52 AM EDT [facility] UA pH POC 6.5 5.0 - 8.0 pH 04/13/2022 11:52 AM EDT [facility] UA Protein POC 30(A) Negative mg/dL 04/13/2022 11:52 AM EDT [facility] UA Urobilinogen POC 0.2 0.2, 1.0 04/13/2022 11:52 AM EDT [facility] UA Nitrite POC Negative Negative 04/13/2022 11:52 AM EDT [facility] UA Leuk Est POC Small(A) Negative 11:52 AM EDT [facility] Urine URINE SPECIMEN COLLECTION / Unknown 04/13/2022 11:50 AM EDT 04/13/2022 11:52 AM EDT Dora Hernandez MD POINT OF CARE TEST ORDERABLES F inal Result [facility] [address] [facility] [address] documented in this encounter Visit Diagnoses Diagnosis Gross hematuria- Primary BPH without urinary obstruction Hypertrophy of prostate without urinary obstruction and other lower urinary tract symptoms (LUTS) Essential hypertension Unspecified essential hypertension Peripheral polyneuropathy Unspecified hereditary and idiopathic peripheral neuropathy Anxiety disorder, unspecified type Bilateral hearing loss, unspecified hearing loss type Right flank pain Abdominal pain, unspecified site Gross hematuria Right flank pain Abdominal pain, unspecified site documented in this encounter Discontinued Medications Medication Sig Discontinue Reason Start Date End Da LORazepam (ATIVAN) 0.5 mg Oral TabletIndications:Anxiety disorder, unspecified type Take 1 Tablet by mouth every 8 hours as needed for Anxiety. Reorder 09/12/2021 04/13/2022 gabapentin (NEURONTIN) 100 mg Oral CapsuleIndications:Periph eral polyneuropathy Take 2 Capsules by mouth 2 times daily. Needs appt Reorder 04/06/2022 04/13/2022 documented as of this encounter Historical Medications * This list may reflect changes made after this encounter. Saw Taylor Fruit 450 mg Oral Capsule Take 450 mg by mouth 3 times daily. supposed to help with urinary frequency 3 added in this encounter Additional Health Concerns Assessment Noted Time A fall risk assessment has been complete d for the patient 04/17/2021 3:08 PM EDT documented as of this encounter Care Teams Scoop Operator Relationship Specialty Start Date End Date Dora Hernandez MD [address] [facility] [place] [address] PCP - General Family Medicine 12/24/15 documented as of this encounter
--- OUTSIDE RECORDS SUMMARY | 2024-09-12 12:44 | XMS_ITS | Encounter Summary ---
Author Organization [place] [address] Care Team Providers Care Customer Assistant Name Role Phone Dora Hernandez MD Primary Care Provider [phone] Reason for Referral * MRI/CAT Scan (Routine) - Closed Specialty Diagnoses / Procedures Referred By Contac t Referred To Contact Radiology Diagnoses Pulmonary nodule, right Procedures CT CHEST W CONTRAST Dora Hernandez MD [address] [place] [address] Phone: tel: fax: Referral ID Status Reason Start Date Expiration Date Visits Re quested Visits Authorized [id number] Closed 09/29/2022 09/29/2023 1 1 Reason for Visit * Reason Comments Medicare Annual Wellness Controlled Substance Monitoring gabapent in Encounter Details Date Type Department Care Team (Late st Contact Info) Description 09/29/2022 10:10 AM EST Office Visit ANA Gloria Carolyn OBRIEN [address] [place] [address] Dora Hernandez MD [address] [place] [address] Medicare annual wellness visit, subsequent (Primary Dx); Flu vaccine need; Hearing loss, unspecified hearing loss type, unspecified laterality; Pulmonary nodule, right; Anxiety disorder, unspecified type; Obesity, Class I, BMI 30-34.9; Peripheral polyneuropathy; Encounter for long-term current use of medication; Essential hypertension; BPH without urinary obstruction; Wears hearing aid in both ears Social [...] Sign Reading Time Taken Comments Blood Pressure 132/76 09/29/2022 10:05 AM EST Pulse 75 09/29/2022 10:05 AM EST Temperature 36.6 ??C (97.9 ??F) 09/29/2022 10:[address] Respiratory Rate - - Oxygen Saturation 96% 09/29/2022 10:05 AM EST Inhaled Oxygen Concentration - - Weight 119.3 kg (263 lb) 09/29/2022 10:05 AM EST Height 190.5 cm (6' 3 ) 09/29/2022 10:05 AM EST Body Mass Index 32.87 09/29/2022 10:05 AM EST documented in this encounter Functional [...] End Date LORazepam (ATIVAN) 0.5 mg Oral TabletIndications:An xiety disorder, unspecified type Take 1 Tablet by mouth every 8 hours as needed for Anxiety. 30 Tablet 09/29/2022 3 gabapentin (NEURONTIN) 100 mg Oral CapsuleIndications:P eripheral polyneuropathy Take 2 Capsules by mouth 2 times daily. 120 Capsule 4 09/29/2022 3 gabapentin (NEURONTIN) 100 mg Oral CapsuleIndications:P eripheral polyneuropathy Take 2 Capsules by mouth 2 times daily. 120 Capsule 5 09/29/2022 2 documented in this encounter Progress Notes * Dora Hernandez MD - 09/29/2022 10:10 AM EST Assessment Diagnoses and all orders for this visit: Medicare annual wellness visit, subsequent Flu vaccine need - QUADRIVALENT FLUZONE HIGH DOSE Hearing loss, unspecified hearing loss type, unspecified laterality Pulmonary nodule, right - CT CHEST W CONTRAST; Future Anxiety disorder, unspecified type - STABLE, PATIENT HAS NO ISSUES - LORazepam (ATIVAN) 0.5 mg Oral Tablet; Take 1 Tablet by mouth every 8 hours as needed for Anxiety. Dispense: 30 Tablet; Refill: 0 Obesity, Class I, BMI 30-34.9 Peripheral polyneuropathy - gabapentin (NEURONTIN) 100 mg Oral Capsule; Take 2 Capsules by mouth 2 times daily. Dispense: 120Capsule; Refill: 4 - STABLE, PATIENT HAS NO ISSUES Encounter for long-term current use of medication - COMPLIANCE BENZODIAZEPINE PANEL QUANT ONLY, URINE; Future - COMPLIANCE GABAPENTIN/PREGABALIN, URINE; Future Essential hypertension - STABLE, PATIENT HAS NO ISSUES BPH without urinary obstruction - STABLE, PATIENT HAS NO ISSUES Wears hearing aid in both ears Pt takes ativan prn. Last rx was in 03/2022. Malachi MAGANARowan CSTA updated. He is changing pharmacy to [facility]. Fall precautions. F/u in 6 months and prn. ?? Progress Note: Vitals: 09/29/22 1005 BP: 132/76 BP Location: Left arm Patient Position: Sitting Pulse: 75 Temp: 97.9 ??F (36.6 ??C) TempSrc: Temporal SpO2: 96% Weight: 263 lb (119.3 kg) Height: 6' 3 (1.905 m) SUBJECTIVE: Chief Complaint Patient presents with ??? Medicare Annual Wellness ??? Controlled Substance Monitoring gabapentin HPI: Medicare Wellness Assessment: Subsequent Annual Medicare Wellness Assessment. Risk Assessments: Fall Risk Assessment Has the patient had 2 or more [...] have grab bars in the bathroom?: Yes (In office Assessment Only): Is the patient able to ambulate without assistance/device and with a gait steady?: Yes (In office Assessment Only): TUG test: Time patient going [...] Daily Living Assistive Device Assessment Assistive Devices: Eyeglasses Osteoporosis Screening Assessment Has the patient had a DEXA (Bone Density) scan in the past 2 years?: (!) No No results found for this or any [...] require both.) AD-8 Dementia Screening tool results Problems with judgement: 0 Less interest in hobbies/activities: 0 Repeats the same things over and over: 0 Trouble learning how to use a tool, appliance or gadget: 0 Forgets correct month or year: 0 Trouble handling complicated financial affairs: 0 Trouble remembering appointments: 0 Daily problems with thinking and/or memory: 0 Total AD8 score:: 0 Mini Cog Dementia Screening tool results Number of words immediately repeated back correctly.: 3 Number of Words Recalled: 3 Dementia: Negative Patient Instructions AWV findings and Plan of [...] - recommend re-assess in 1 year Vaccinations: discussed Exercise/Activity: recommended continuing current Recommended follow up annually for Medicare Annual [...] visit. If you have a power of contracts attorney orsurrogate, we should also have a copy [...] and will show as resolved in your MyChart account soon. Health Maintenance Due Topic Date Due ??? Zoster (1 of 2) Never done ??? DTaP/TDaP/Td (1 - Tdap) [...] provided to the patient digitally through their [facility] account or with a paper copy if the patient doesn't have an active MyChart Account. A copy of today's progress note with recommendations below is alsoavailable electronically for patients with an active [facility] account per the Federal Cures Act. TheAVS also contains additional patient education if appropriate on topics common to wellness and their plan of care. History Reviewed: No results found. No results found for this visit on 09/29/22. Patient Active Problem List Diagnosis ??? Hyponatremia [...] Seasonal allergic rhinitis ??? Bilateral hearing loss Past Medical History: Diagnosis Date ??? Hyperlipidemia 04/17/2021 ??? Hypertension ??? Neuropathy ??? Tobacco use 12/23/2015 Past Surgical History: Procedure Laterality Date ??? CARDIAC CATHETERIZATION ??? DENTAL SURGERY ??? FOOT SURGERY Allergies Allergen Reactions ??? Crestor [Rosuvastatin] Other (See Comments) Leg weakness Current Outpatient Medications on File Prior to Visit Medication Sig Dispense Refill ??? amLODIPine (NORVASC) [...] ??? fluticasone propionate (FLONASE) 50 mcg/actuation Nasl [place], Suspension USE 2 SPRAYS NASALLY EVERY DAY 48 g 0 ??? losartan (COZAAR) 50 mg Oral [...] mg by mouth as needed. ??? Saw [place] Fruit 450 mg Oral Capsule Take 450 mg by mouth 3 times daily. supposed to help with urinary frequency ??? tamsulosin (FLOMAX) 0.4 mg Oral Capsule TAKE 1 CAPSULE EVERY NIGHT (Patient taking differently:Take 0.4 mg by mouth daily. TAKE 1 CAPSULE EVERY day) 90 Capsule 1 ??? vit A/vit C/vit E/zinc/copper (ICAPS AREDS ORAL) Take by mouth daily. No current facility-administered medications on file prior to visit. Social History Socioeconomic History ??? Marital status: Spouse name: None ??? Number of children: None ??? Years of education: None ??? Highest education level: None Tobacco Use ??? Smoking status: Former Packs/day: 2.00 Years: 50.00 Pack years: 100.00 Types: Pipe, Cigarettes Quit date: 01/03/2016 Years since quittin.7 ??? [...] 09/12/2021, 09/29/2022 ??? Td, Unspecified Formulation 07/17/2012 Health Maintenance Topic Date Due ??? Zoster (1 of 2) Never done ??? DTaP/TDaP/Td (1 - Tdap) 07/18/2012 ??? Low Dose Lung Cancer Screening 12/30/2017 ??? COVID-19 Vaccine (4 - Booster for Pfizer series) 09/29/2023 (Originally 11/24/2021) ??? Wellness Exam Medicare 09/29/2023 ??? Fall Risk Assessment 09/29/2023 ??? Influenza Vaccine Completed ??? Pneumococcal Vaccine 65+ Completed ??? Hepatitis B Vaccine Aged Out Patient Care Team: Dora Hernandez MD as PCP - General (Family Medicine) Additional issues addressed today: Hypertension: Home reporting of hypertension was reviewed at time of visit. Jac denies any episodes of dizziness, lightheadedness, presyncope, syncope, headache, or chest pain. Jac does not report any new symptoms of possible hypertension sequelae. The patient reports that he is not having significant issues or side effects of current medications/treatments. Hyperlipidemia: Last Lipid and liver panel has been reviewed. Current cholesterol goals discussed with patient. Thepatient is on a lipid lowering agent. The patient currently is on a statin. No complaints of side effects from medication. The patient is not having issues maintaining compliance with the previously outlined care plan. The patient does not report significant side effects of current medications/treatments. Diet has been reviewed with patient. BPH. Doing well on rx. PN - doing well on gabapentin. Denies s/e from rx. Controlled Substance Common Conditions Interval Assessment:?Anxiety:?Jac Angel Bharathi??is here for follow up of chronic anxiety and medication management. ?Currently, he??reports anxiety level as controlled??with current treatments in place. ??He??reports taking current medication <1??times per week.??Took 1 yesterday. 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 ??He??is not??having side effects from medications. ??He??has??abstained from alcohol while requiring this medication. ??Current limitations of anxiety symptoms include: ability to [...] has been reviewed. ? Review of Systems HENT: Negative for trouble swallowing. Respiratory: Negative for shortness of breath. Cardiovascular: Negative for chest pain. Gastrointestinal: Negative for blood in stool. Genitourinary: Negative for hematuria. Neurological: Negative for dizziness and headaches. OBJECTIVE: Physical Exam Constitutional: General: He is not in acute distress. Appearance: He is not ill-appearing or diaphoretic. HENT: Head: Normocephalic. Right Ear: Tympanic membrane normal. Left Ear: Tympanic membrane normal. Ears: Comments: [place] despite wearing hearing aids. Cerumen from L external canal - manually removed Eyes: General: Right eye: No discharge. Left eye: No discharge. Conjunctiva/sclera: Conjunctivae normal. Cardiovascular: Rate and Rhythm: Normal rate and regular rhythm. Pulmonary: Effort: Pulmonary effort is normal. Breath sounds: Normal breath sounds. Neurological: General: No focal deficit present. Mental Status: He is alert and oriented to person, place, and time. Psychiatric: Mood and Affect: Mood normal. Behavior: Behavior normal. * Dora Hernandez MD - 09/29/2022 10:10 AM EST UDS Consistent. documented in this encounter Plan of Treatment Scheduled Orders Name Type Priority Associated Diagnoses Orde r Schedule CT CHEST W CONTRAST Imaging Routine Pulmonary nodule, right 1 Occurrences starting 09/29/2022 until 09/29/2023 documented as of this encounter Goals Goal [...] for long-term current use of medication COMPLIANCE GABAPENTIN/PREGABALIN, URINE Routine 09/29/2022 10:56 AM EST Encounter for long-term current use of medication documented in this encounter Results * (ABNORMAL) COMPLIANCE GABAPENTIN/PREGABALIN, URINE (09/29/2022 10:56 AM EST) Gabapentin >2,000(H) Cutoff 50 ng/mL ng/mL 10/01/2022 10:34 AM EST [employer] Comment:e.g, Neurontin Pregabalin <50 Cutoff 50 ng/mL ng/mL 10/01/2022 10:34 AM EST [facility] Comment:Lyrica Urine Creatinine 75.0 mg/dL 10/01/20 10:34 AM EST [facility] Comment: Greater than 20: Consistent with valid sample Greater than 2 but less than 20: Possible dilution Less than 2: Questionable valid sample Greater than 20: Consistent with valid sample Greater than 2 but less than 20: Possible dilution Less than 2: Questionable valid sample Urine URINE SPECIMEN COLLECTION / Unknown 09/29/2022 10:56 AM EST 09/29/2022 10:56 AM EST Narrative [facility] [employer], [facility] - 10/01/2022 10:34 AM EST The absence of expected drug(s), and/or drug metabolite(s), may indicate non-compliance, diluted or adulterated urine, poor drug absorption, concentration of drug below the cut-off, timing of specimen collection relative to administration of drug, or limitations of testing. If results do not fit clinical expectations, please reach out to the Toxicology department at [phone]. Specimens are held for 7 days. This test was developed, and its performance characteristics determined by [facility] ([facility]). ??It has not been cleared or approved by the FDA. This test is used for clinical purposes. It should not be regarded as investigational or for research. [facility] is certified under the Clinical Laboratory Improvement Amendments (CLIA) as qualified to perform high complexity clinical laboratory testing. Dora Hernandez MD URINE ORDERABLES Final Result [facility] [employer], [facility] [address] , [place] [address] * COMPLIANCE BENZODIAZEPINE PANEL QUANT ONLY, URINE (09/29/2022 10:56 AM EST) Medications Expected Ativan(T M) (lorazep am) 10/01/2022 10:34 AM EST [facility] [employer], [facility] Alprazolam <10 Cutoff 10 ng/mL ng/mL 10/01/2022 10:34 AM EST [facility] [employer], [facility] Comment:e.g, Xanax, Niravam alpha-Hydroxyalprazolam <25 Cutoff 2 5 ng/mL ng/mL 10/01/2022 10:34 AM EST [employer], [facility] Comment:Metabolite of Alpraz olam Clonazepam <10 Cutoff 10 ng/mL ng/mL 10/01/2022 10:34 AM EST [employer], [facility] Comment:e.g., Klonopin, Clon opin 7-Aminoclonazepam <25 Cutoff 25 ng/mL ng/mL 10/01/2022 10:34 AM EST [employer], [facility] Comment:Metabolite of Clonaz epam Diazepam <10 Cutoff 10 ng/mL ng/mL 10/01/2022 10:34 AM EST [facility] Comment:e.g, Valium, Diastat Nordiazepam <25 Cutoff 25 ng/mL ng/mL 10/01/2022 10:34 AM EST [facility] Comment:Metabolite of Chlord iazepoxide(Librium), Clorazepate(Tranxene), Diazepam, Halazepam, (Alapryl), Prazepam(Centrax) Flunitrazepam <50 Cutoff 50 ng/mL ng/mL 10/01/2022 10:34 AM EST [facility] Comment:e.g.,Rohypnol, Narco zep 7-Aminoflunitrazepam <50 Cutoff 50 ng/mL ng/mL 10/01/2022 10:34 AM EST [facility] Comment:Metabolite of Flunit razepam Flurazepam <50 Cutoff 50 ng/mL ng/mL 10/01/2022 10:34 AM EST [facility] Comment:e.g., Dal[place]e Hydroxyethylflurazepam <50 Cutoff 50 ng/mL ng/mL 10/01/2022 10:34 AM EST [facility] Comment:Metabolite of Fluraz epam Lorazepam <50 Cutoff 50 ng/mL ng/mL 10/01/2022 10:34 AM EST [facility] Comment:e.g., Ativan Lorazepam Glucuronide <50 Cutoff 50 ng/mL ng/mL 10/01/2022 10:34 AM EST [facility] Comment:Metabolite of Loraze juan Midazolam <50 Cutoff 50 ng/mL ng/mL 10/01/2022 10:34 AM EST [facility] Comment:e.g., Versed alpha-hydroxymidazolam <50 Cutoff 50 ng/mL ng/mL 10/01/2022 10:34 AM EST [facility] Comment:Metabolite of Versed Oxazepam <50 Cutoff 50 ng/mL ng/mL 10/01/2022 10:34 AM EST [facility] Comment:e.g., Serax; also Me tabolite of Temazepam, and Nordiazepam Oxazepam Glucuronide <50 Cutoff 50 ng/mL ng/mL 10/01/2022 10:34 AM EST [facility] Comment:Metabolite of Oxazep am Temazepam <50 Cutoff 50 ng/mL ng/mL 10/01/2022 10:34 AM EST [facility] [employer] [facility] Comment:e.g., Restoril; also Metabolite of Diazepam Temazepam Glucuronide <50 Cutoff 50 ng/mL ng/mL 10/01/2022 10:34 AM EST [facility] [employer] [facility] Comment:Metabolite of Temaze juan and Diazepam Triazolam <50 Cutoff 50 ng/mL ng/mL 10/01/2022 10:34 AM EST [facility] [employer] [facility] Comment:e.g., Halcion alpha-hydroxytriazolam <50 Cutoff 50 ng/mL ng/mL 10/01/2022 10:34 AM EST [facility] [employer] [facility] Comment:Metabolite of Triazo chavez Urine Creatinine 75.0 mg/dL 10/01/20 10:34 AM EST [facility] [employer] [facility] Comment: Greater than 20: Consistent with valid sample Greater than 2 but less than 20: Possible dilution Less than 2: Questionable valid sample Urine URINE SPECIMEN COLLECTION / Unknown 09/29/2022 10:56 AM EST 09/29/2022 10:56 AM EST Narrative [facility] [employer] [facility] - 10/01/2022 10:34 AM EST The absence of expected drug(s), and/or drug metabolite(s), may indicate non-compliance, diluted or adulterated urine, poor drug absorption, concentration of drug below the cut-off, timing of specimen collection relative to administration of drug, or limitations of testing. If results do not fit clinical expectations, please reach out to the Toxicology department at [phone]. Specimens are held for 7 days. This test was developed, and its performance characteristics determined by [facility] ([facility]). ??It has not been cleared or approved by the FDA. This test is used for clinical purposes. It should not be regarded as investigational or for research. [facility] is certified under the Clinical Laboratory Improvement Amendments (CLIA) as qualified to perform high complexity clinical laboratory testing. Dora Hernandez MD URINE ORDERABLES Final Result [facility] [employer] [facility] [address] , [place] [address] documented in this encounter Visit Diagnoses Diagnosis Medicare annual wellness visit, subsequent- Primary Routine general medical examination at a health care facility Flu vaccine need Need for prophylactic vaccination and inoculation against influenza Hearing loss, unspecified hearing loss type, unspecified laterality Pulmonary nodule, right Solitary pulmonary nodule Anxiety disorder, unspecified type Obesity, Class I, BMI 30-34.9 Obesity, unspecified Peripheral polyneuropathy Unspecified hereditary and idiopathic peripheral neuropathy Encounter for long-term current use of medication Essential hypertension Unspecified essential hypertension BPH without urinary obstruction Hypertrophy of prostate without urinary obstruction and other lower urinary tract symptoms (LUTS) Wears hearing aid in both ears documented in this encounter Discontinued Medications Medication Sig Discontinue Reason Start Date End Da te gabapentin (NEURONTIN) 100 mg Oral CapsuleIndications:Periph eral polyneuropathy Take 2 Capsules by mouth 2 times daily. Reorder 05/06/2022 09/29/2022 gabapentin (NEURONTIN) 100 mg Oral CapsuleIndications:Periph eral polyneuropathy Take 2 Capsules by mouth 2 times daily. DELETE-Duplicate 09/29/2022 09/29/2022 LORazepam (ATIVAN) 0.5 mg Oral TabletIndications:Anxiety disorder, unspecified type Take 1 Tablet by mouth every 8 hours as needed for Anxiety. Reorder 04/13/2022 09/29/2022 documented as of this encounter Orders Immunization/Injection Count Last Ordered Date First Ordered Date QUADRIVALENT FLUZONE HIGH DOSE 1 09/29/2022 Nursing Count Last Ordered Date First Orde red Date STABLE, PATIENT HAS NO ISSUES 1 09/29/2022 documented in this encounter Additional Health Concerns Assessment Noted Time A fall risk assessment has been complete d for the patient 09/29/2022 10:09 AM EST documented as of this encounter Care Teams Customer Assistant Relationship Specialty Start Date End Date Dora Hernandez MD [address] [facility] [address] [place] [id number] PCP - General Family Medicine 12/24/15 documented as of this encounter
--- OUTSIDE RECORDS SUMMARY | 2024-09-12 12:44 | XMS_ITS | Encounter Summary ---
Author Organization [place] [address] Care Team Providers Care Latex Thread Machine Operator Name Role Phone Dora Hernandez MD Primary Care Provider [phone] Reason for Visit * Reason Comments Medication Refill Encounter Details Date Type Department Care Team (Late st Contact Info) Description 02/24/2022 Refill SEP [facility] [address] [facility] [address] [facility] [place] [address] Dora Hernandez MD [address] [place] [address] Medication Refill Social History Tobacco [...] CAPSULE EVERY NIGHT 90 Capsule 1 02/24/2022 documented in this encounter Plan of Treatment [...] urinary obstruction TAKE 1 CAPSULE EVERY NIGHT 09/25/2021 02/24/2022 documented as of this encounter Additional Health Concerns Assessment Noted Time A fall risk assessment has been complete d for the patient 04/17/2021 3:08 PM EDT documented as of this encounter Care Teams Latex Thread Machine Operator Relationship Specialty Start Date End Date Doar Hernandez MD [address] [facility] [place] [address] PCP - General Family Medicine 12/24/15 documented as of this encounter
--- OUTSIDE RECORDS SUMMARY | 2024-09-12 12:44 | XMS_ITS | Encounter Summary ---
Author Organization [place] [address] Care Team Providers Care Plasma Center Technician Name Role Phone Dora Hernandez MD Primary Care Provider [phone] Reason for Visit * Reason Onset Date Comments Central Patient Navigator Outreach 04/10/2022 AWV Questionnaire Encounter Details Date Type Department Care Team (Late Contact Info) Description 04/10/2022 Patient Outreach [facility] [address] [place], [place] [id number] Dora Hernandez MD [address] [place] [address] [place] [address] Central Patient Navigator Outreach (AWV Questionnaire) Social History Tobacco Use Types Packs/Day Years [...] Elsi Santo MA documented in this encounter Progress Notes * Marcie Garcia - 04/10/2022 1:06 PM EDT Patient Outreach: Pre-Visit Questionnaires Attempt Count: inbound Care Gaps Addressed senior application programmer: Medicare Questionnaire Outcome: called back unable to complete questions with her, no POA paperwork in chart, pt can not hear over phone. please complete in office. * Anne Rodriguez - 04/10/2022 9:06 AM EDT Patient Outreach: Pre-Visit Questionnaires Attempt Count: 1st Care Gaps Addressed senior application programmer: Medicare Questionnaire Outcome: Left message to return [...] documented as of this encounter Care Teams Plasma Center Technician Relationship Specialty Start Date End Date Dora Hernandez MD [address] [facility] [place] [address] PCP - General Family Medicine 12/24/15 documented as of this encounter
--- OUTSIDE RECORDS SUMMARY | 2024-09-12 12:44 | XMS_ITS | Encounter Summary ---
Author Organization [place] [address] Care Team Providers Care Team Coordinator Name Role Phone Dora Hernandez MD Primary Care Provider [phone] Reason for Referral * MRI/CAT Scan (Routine) - Closed Specialty Diagnoses / Procedures Referred By Contac t Referred To Contact Radiology Diagnoses Pulmonary nodule, right Procedures CT CHEST W CONTRAST Dora Hernandez MD [address] [place] [address] Phone: tel: fax: Referral ID Status Reason Start Date Expiration Date Visits Re quested Visits Authorized [id number] Closed 09/12/2021 09/12/2022 1 1 Reason for Visit * Reason Comments Hypertension Hyperlipidemia Encounter Details Date Type Department Care Team (Latest Contact Info) Description 09/12/2021 11:00 AM EST Office Visit ANA Gloria Carolyn OBRIEN [address] [place] [address] Dora Hernandez MD [address] [place] [address] Essential hypertension (Primary Dx); Anxiety disorder, unspecified type; Peripheral polyneuropathy; Hyperlipidemia, unspecified hyperlipidemia type; BPH without urinary obstruction; Flu vaccine need; Pulmonary nodule, right; Obesity, Class I, BMI 30-34.9; Statin intolerance; Seasonal allergic rhinitis, unspecified trigger Social History Tobacco Use Types Packs/Day Years [...] Exposure Response Date Recorded In the last month, have you been in contact with someone who was confirmed or suspected to have Coronavirus / COVID-19? No / Unsure 09/12/2021 10:56 AM EST documented as of this encounter Last Filed Vital Signs Vital Sign Reading Time Taken Comments Blood Pressure 140/70 09/12/2021 11:12 AM EST Pulse 65 09/12/2021 11:12 AM EST Temperature 36.3 ??C (97.3 ??F) 09/12/2021 1 1:12 AM EST Respiratory Rate - - Oxygen Saturation 96% 09/12/2021 11: 12 AM EST Inhaled Oxygen Concentration - - Weight 117.4 kg (258 lb 12.8 oz) 2020 11:12 AM EST Height 190.5 cm (6' 3 ) 09/12/2021 11:1 2 AM EST Body Mass Index 32.35 09/12/2021 11:12 AM EST documented in this encounter Functional Status * Is the person deaf or does he/she have serious difficulty hearing? Answer Date of Assessment Author No 09/12/2021 11:11 AM EST Esli Redd MA * Is the person blind or [...] of Assessment Author No 09/12/2021 11:11 AM EST Elsi Redd MA * Because of a physical, mental [...] mouth 2 times daily. 120 Capsule 4 09/12/2021 2 LORazepam (ATIVAN) 0.5 mg Oral TabletIndications:An xiety disorder, unspecified type Take 1 Tablet by mouth every 8 hours as needed for Anxiety. 30 Tablet 09/12/2021 2 fluticasone propionate (FLONASE) 50 mcg/actuation Nasl [place], SuspensionIndication s:Seasonal allergic rhinitis, unspecified trigger 2 Sprays by Nasal route daily. 3 Each 1 09/12/2021 2 documented in this encounter Progress Notes * Dora Hernandez MD - 09/12/2021 11:00 AM EST Vitals: 09/12/21 1112 BP: 140/70 Pulse: 65 Temp: 97.3 ??F (36.3 ??C) SpO2: 96% Weight: 258 lb 12.8 oz (117.4 kg) Height: 6' 3 (1.905 m) SUBJECTIVE: Chief Complaint Patient presents with ??? Hypertension ??? Hyperlipidemia HPI: Hypertension: Home reporting of hypertension was [...] medications/treatments. Diet has been reviewed with patient. Neuropathy. Gabapentin is helping. C/o LE weakness for several years. Improved when he stopped crestor. Symptom recurred when he took crestor again so he stopped. No difficulty with walking. No falls. ?? Controlled Substance Common Conditions Interval Assessment: Anxiety: Jac Garvin is here for follow up of chronic anxiety and medication management. Currently, he reports anxiety level as controlled with current treatments in place. He reports taking current medication <1 times per week. Took 1 today. Usually takes it if he is going to give a talk. He is not having side effects from medications. He has abstained from alcohol while requiring this medication. Current limitations of anxiety symptoms include: ability to cope with day to day stress, and situations, without medication ?? Doing well, No SE's with medication. No evidence of abuse/diversion. Pt informed and aware of medication's potential for abuse/dependence. ?? Functional goal/goals of treatment: Abort anxiety attacks. ?? Controlled Substance Prescribing Management: As part of today's visit Jac is also being followedfor controlled substance management for anxiety. Details of the progress of the monitored conditionare noted in that section of the HPI. The controlled substance flow sheet has been reviewed. ?? Review of Systems Constitutional: Negative for appetite change, chills and fever. HENT: Negative for nosebleeds and trouble swallowing. Eyes: Negative for pain and visual disturbance. Respiratory: Negative for apnea and choking. Cardiovascular: Negative for chest pain and palpitations. Gastrointestinal: Negative for abdominal pain and constipation. Genitourinary: Negative for difficulty urinating and hematuria. Musculoskeletal: Negative for arthralgias, joint swelling and neck stiffness. Neurological: Negative for seizures and headaches. Psychiatric/Behavioral: Negative for agitation, confusion and hallucinations. OBJECTIVE: Physical Exam Vitals reviewed. Constitutional: General: He is not in acute distress. Appearance: He is well-developed. He is not ill-appearing or diaphoretic. HENT: Head: Normocephalic and atraumatic. Cardiovascular: Rate and Rhythm: Normal rate and regular rhythm. Pulmonary: Effort: Pulmonary effort is normal. Breath sounds: Normal breath sounds. Musculoskeletal: Right lower leg: No edema. Left lower leg: No edema. Neurological: Mental Status: He is alert and oriented to person, place, and time. Psychiatric: Behavior: Behavior normal. Assessment Diagnoses and all orders for this visit: Essential hypertension - COMPREHENSIVE METABOLIC PANEL; Future Anxiety disorder, unspecified type - LORazepam (ATIVAN) 0.5 mg Oral Tablet; Take 1 Tablet by mouth every 8 hours as needed for Anxiety. Dispense: 30 Tablet; Refill: 0 Peripheral polyneuropathy - gabapentin (NEURONTIN) 100 mg Oral Capsule; Take 2 Capsules by mouth 2 times daily. Dispense: 120Capsule; Refill: 4 Hyperlipidemia, unspecified hyperlipidemia type - LIPID PANEL REFLEX; Future BPH without urinary obstruction Flu vaccine need - QUADRIVALENT FLUZONE HIGH DOSE Pulmonary nodule, right - CT CHEST W CONTRAST; Future Obesity, Class I, BMI 30-34.9 Statin intolerance Seasonal allergic rhinitis, unspecified trigger - fluticasone propionate (FLONASE) 50 mcg/actuation Nasl [place], Suspension; 2 Sprays by Nasal routedaily. Dispense: 3 Each; Refill: 1 Malachi UTD. No UDS. Pt takes rx prn. Last rx #30 was in March 2021. No red flags. ?? Reminded to sched appt for Chest CT. Intentional wt loss. Continue healthy diet and exercises. Crestor caused leg weakness - d/c. F/u in 6 months and prn. documented in this encounter Plan of Treatment Scheduled Orders Name Type Priority Associated Diagnoses Orde r Schedule CT CHEST W CONTRAST Imaging Routine Pulmonary nodule, right 1 Occurrences starting 09/12/2021 until 09/12/2022 documented as of this encounter Goals Goal [...] Stay Tobacco Free Lifestyle No Kim Solis GENNY documented as of this encounter Procedures Procedure Name Priority Date/Time Associated Diagnosis Comments LIPID PANEL REFLEX Routine 09/12/2021 11 :58 AM EST Hyperlipidemia, unspecified hyperlipidemia type COMPREHENSIVE METABOLIC PANEL Routine 09/12/2021 11:58 AM EST Essential hypertension documented in this encounter Results * (ABNORMAL) LIPID PANEL REFLEX (09/12/2021 11:58 AM EST) Cholesterol 229(H) <200 mg/dL 09/12/2021 9:17 PM EST [facility] Comment: < 200 ?Desirable 200 - 239 ? Borderline High >= 240 ?High Triglyceride 116 <150 mg/dL 09/12/2021 9:17 PM EST [facility] Comment: < 150 ? Normal 150 - 199 ?Borderline High 200 - 499 ?High ??>= 500 ? Very High HDL 56 >=40 mg/dL 09/12/2021 9:17 PM EST [facility] Comment: ??> 60 ?Optimal 40 - 60 ?Acceptable ?? < 40 ?Low LDL Calculated 152(H) <100 mg/dL 09/12/2021 9:17 PM EST [facility] Non-HDL-C Calculated 173(H) <=129 mg/dL 09/12/2021 9:17 PM EST [facility] [employer] [employer] Comment: <130 ?Desirable 130-159 Above Desirable 160-189 Borderline High 190-219 High >= 220 ??Very High Fasting Specimen? Yes None 021 9:17 PM EST [facility] Blood VENOUS BLOOD / Unknown Venipuncture / Unknown 09/12/2021 11:58 AM EST 09/12/2021 11:58 AM EST us Dora Hernandez MD CHEMISTRY ORDERABLES Final Resu lt [facility] [address] [facility] , [address] [place] [id number] [facility] [address] [place] [address] * (ABNORMAL) COMPREHENSIVE METABOLIC PANEL (09/12/2021 11:58 AM EST) Sodium 141 136 - 145 mmol/L 09/12/2021 9:17 PM EST [facility] Potassium 4.6 3.5 - 5.0 mmol/L 09/12/2021 9:17 PM EST [facility] Chloride 106 98 - 107 mmol/L 09/12/2021 9:17 PM EST [facility] Total CO2 22 22 - 29 mmol/L 09/12/2021 9:17 PM EST [facility] Anion Gap 13 7 - 16 mmol/L 09/12/2021 9:17 PM EST [facility] Calcium 9.2 8.8 - 10.4 mg/dL 09/12/2021 9:17 PM EST [facility] Glucose Lvl 103(H) 82 - 100 mg/dL 09/12/2021 9:17 PM EST [facility] BUN 18 8 - 23 mg/dL 09/12/2021 9:17 PM EST [facility] Creatinine 1.16 0.67 - 1.30 mg/dL 09/12/2021 9:17 PM EST [facility] Albumin 4.6 3.2 - 4.6 gm/dL 09/12/2021 9:17 PM EST [facility] Total Protein 7.1 6.4 - 8.3 gm/dL 09/12/2021 9:17 PM EST [facility] Bili Total 0.8 0.1 - 1.4 mg/dL 09/12/2021 9:17 PM EST [facility] ALT 22 <=41 U/L 09/12/2021 9:17 PM EST [facility] AST 16 <=40 U/L 09/12/2021 9:17 PM EST [facility] Alk Phos 124 40 - 129 U/L 09/12/2021 9:17 PM EST [facility] GFR Afr Am 69 >=60 mL/min/1.7 3 m2 09/12/2021 9:17 PM EST [facility] GFR Non Afr Am 60 >=60 mL/min/1.7 3 m2 09/12/2021 9:17 PM EST [facility] Comment: This estimated GFR was calculated using CKD-EPI equation which is modified based on ethnicity for Non Americans and Americans. Both results are reported since it is not always possible to determine the patient's ethnicity. This equation should only be used for individuals 18 and older. It has not been validated for use with the elderly (>70 years), women, or in some racial or ethnic subgroups, such as Hispanics. The equation will be less accurate in people with differences in nutritional status or muscle mass. Blood VENOUS BLOOD / Unknown Venipuncture / Unknown 09/12/2021 11:58 AM EST 09/12/2021 11:58 AM EST Dora Hernandez MD CHEMISTRY ORDERABLES Final Resu lt [facility] [address] [facility] , [place] [address] [facility] [address] [place], [place] [id number] documented in this encounter Visit Diagnoses Diagnosis Essential hypertension- Primary Unspecified essential hypertension Anxiety disorder, unspecified type Peripheral polyneuropathy Unspecified hereditary and idiopathic peripheral neuropathy Hyperlipidemia, unspecified hyperlipidemia type BPH without urinary obstruction Hypertrophy of prostate without urinary obstruction and other lower urinary tract symptoms (LUTS) Flu vaccine need Need for prophylactic vaccination and inoculation against influenza Pulmonary nodule, right Solitary pulmonary nodule Obesity, Class I, BMI 30-34.9 Obesity, unspecified Statin intolerance Other drug allergy Seasonal allergic rhinitis, unspecified trigger documented in this encounter Discontinued Medications Medication Sig Discontinue Reason Start Date End Da te fluticasone (FLONASE) 50 mcg/actuation Nasl [place], SuspensionIndications:Eus tachian tube dysfunction, bilateral 2 Sprays by Nasal route daily. Reorder 01/20/2016 09/12/2021 LORazepam (ATIVAN) 0.5 mg Oral TabletIndications:Anxiety disorder, unspecified type Take 1 Tab by mouth every 8 hours as needed for Anxiety. Reorder 04/17/2021 09/12/2021 rosuvastatin (CRESTOR) 5 mg Oral TabletIndications:Hyperch olesteremia TAKE 1 TABLET EVERY NIGHT Side effects 01/23/2021 09/12/2021 gabapentin (NEURONTIN) 100 mg Oral CapsuleIndications:Periph eral polyneuropathy TAKE TWO CAPSULES BY MOUTH TWICE A DAY MUST MAKE APPT Reorder 09/01/2021 09/12/2021 documented as of this encounter Orders Immunization/Injection Count Last Ordered Date First Ordered Date QUADRIVALENT FLUZONE HIGH DOSE 1 09/12/2021 documented in this encounter Additional Health Concerns Assessment Noted Time A fall risk assessment has been complete d for the patient 04/17/2021 3:08 PM EDT documented as of this encounter Care Teams Team Coordinator Relationship Specialty Start Date End Date Dora Hernandez MD [address] [place] [id number] PCP - General Family Medicine 12/24/15 documented as of this encounter
--- OUTSIDE RECORDS SUMMARY | 2024-09-12 12:44 | XMS_ITS | Encounter Summary ---
Author Organization [facility] [place] [place] [address] Care Team Providers Care Supportability Engineer Name Role Phone Dora Hernandez MD Primary Care Provider [phone] Reason for Visit * Reason Comments Medication Refill Encounter Details Date Type Department Care Team (Late st Contact Info) Description 05/07/2022 Refill SEP Gloria eLon [address] [facility] [place] [address] Dora Hernandez MD [address] [place] [address] Medication Refill Social History Tobacco [...] TABLET BY MOUTH DAILY 30 Tablet 2 05/07/2022 08/10/2022 documented in this encounter Plan of Treatment [...] Tablet TAKE ONE TABLET BY MOUTH DAILY 12/30/2021 05/07/2022 documented as of this encounter Additional Health Concerns Assessment Noted Time A fall risk assessment has been complete d for the patient 04/17/2021 3:08 PM EDT documented as of this encounter Care Teams Supportability Engineer Relationship Specialty Start Date End Date Dora Hernandez MD [address] [facility] [place] [address] PCP - General Family Medicine 12/24/15 documented as of this encounter
--- OUTSIDE RECORDS SUMMARY | 2024-09-12 12:44 | XMS_ITS | Encounter Summary ---
Author Organization [facility] [place] [place] [address] Care Team Providers Care Furnace Clerk Name Role Phone Dora Hernandez MD Primary Care Provider [phone] Reason for Visit * Reason Onset Date Comments Back Pain 04/12/2022 Hematuria 04/12/2022 Encounter Details Date Type Department Care Team (Late st Contact Info) Description 04/12/2022 Nurse Triage [address] [place] [address] Victoria Singh, RN Social History Tobacco Use Types Packs/Day Years [...] of Assessment Author No 09/12/2021 11:11 AM COYD Redd SummerElsiyesenia Freeman MA * Does this person have difficulty dressing or bathing? Answer Date of Assessment Author No 09/12/2021 11:11 AM CODY Redd SummerElsiyesenia Freeman MA * Because of a physical, [...] Entry Date Author No 09/12/2021 11:11 AM CODY Redd Elsiyesenia Freeman MA documented in this encounter Miscellaneous Notes * Telephone Encounter - Victoria Singh RN - 04/12/2022 7:11 PM EDT Nurse Triage Call -Chief Complaint: Right sided back pain, worse after golf today - blood in urine -Reported by: Alessandro Simons -Disposition per protocol: see pcp within 24 hours -Follow up/Concerns: Care advice per protocol. Appointment scheduled for morning. to call backwith any further questions or changes. Reason for Disposition ??? Side (flank) or back pain present Answer Assessment - Initial Assessment Questions 1. COLOR of URINE: Describe the color of the urine. (e.g., tea-colored, pink, red, blood clots, bloody) a little blood in it mixed with urine , 2. ONSET: When did the bleeding start? today 3. EPISODES: How many times has there been blood in the urine? or How many times today? several times 4. PAIN with URINATION: Is there any pain with passing your urine? If Yes, ask: How bad is the pain? (Scale 1-10; or mild, moderate, severe) - MILD - complains slightly about urination hurting - MODERATE - interferes with normal activities - SEVERE - excruciating, unwilling or unable to urinate because of the pain denies 5. FEVER: Do you have a fever? If Yes, ask: What is your temperature, how was it measured, and when did it start? denies 6. ASSOCIATED SYMPTOMS: Are you passing urine more frequently than usual? yes 7. OTHER SYMPTOMS: Do you have any other symptoms? (e.g., back/flank pain, abdominal pain, vomiting) right sided flank pain 8. : Is there any chance you are ? When was your last menstrual period? n/a Protocols used: URINE - BLOOD IN-A-AH documented in this encounter Plan of Treatment [...] documented as of this encounter Care Teams Furnace Clerk Relationship Specialty Start Date End Date Dora Hernandez MD [address] [place] [address] PCP - General Family Medicine 12/24/15 documented as of this encounter
--- OUTSIDE RECORDS SUMMARY | 2024-09-12 12:44 | XMS_ITS | Encounter Summary ---
Author Organization [facility] [place] [address] Care Team Providers Care Boilermaker Apprentice Name Role Phone Dora Hernandez MD Primary Care Provider [phone] Encounter Details Date Type Department Care Team (Latest Contact Info) Description 09/12/2021 Travel Social History Tobacco Use Types Packs/Day [...] 11:11 AM EST Elsi Redd MA * Is the person blind [...] Elsi Santo MA documented in this encounter Plan of Treatment [...] documented as of this encounter Care Teams Boilermaker Apprentice Relationship Specialty Start Date End Date Dora Hernandez MD [address] [place] [address] PCP - General Family Medicine 12/24/15 documented as of this encounter
--- OUTSIDE RECORDS SUMMARY | 2024-09-12 12:44 | XMS_ITS | Encounter Summary ---
Author Organization [place] [address] Care Team Providers Care Certified Registered Locksmith Name Role Phone Dora Hernandez MD Primary Care Provider Encounter Details Date Type Department Care Team (Late st Contact Info) Description 09/15/2021 Orders Only SEP [facility] [address] [place] [address] Dora Hernandez MD [address] [place] [address] Social History Tobacco Use Types [...] Date ezetimibe (ZETIA) 10 mg Oral Tablet Take 1 Tablet by mouth daily. 30 Tablet 2 09/15/2021 12/30/2021 documented in this encounter Plan of Treatment [...] documented as of this encounter Care Teams Certified Registered Locksmith Relationship Specialty Start Date End Date Dora Hernandez MD [address] [place] [address] [place] [id number] PCP - General Family Medicine 12/24/15 documented as of this encounter
--- OUTSIDE RECORDS SUMMARY | 2024-09-12 12:44 | XMS_ITS | Encounter Summary ---
Author Organization [place] [address] Care Team Providers Care Educational Aide Name Role Phone Dora Hernandez MD Primary Care Provider [phone] Reason for Visit * Reason Onset Date Comments Other 04/23/2022 FYI Encounter Details Date Type Department Care Team (Late st Contact Info) Description 04/23/2022 Telephone [facility] Gloria Leon [address] [place] [address] Dora Hernandez MD [address] [place] [address] Other (FYI) Social History Tobacco Use Types Packs/Day Years [...] Elsi Santo MA documented in this encounter Miscellaneous Notes * Telephone Encounter - Dora Hernandez MD - 04/23/2022 10:12 AM EDT Noted. * Telephone Encounter - Marlen Sampson - 04/23/2022 9:12 AM EDT As per pt's stated doc wanted to know how pt was doing , pt's stated pt is doing fine, pain in kidney has disappear documented in this encounter Plan of Treatment [...] documented as of this encounter Care Teams Educational Aide Relationship Specialty Start Date End Date Dora Hernandez MD [address] [facility] [address] [place] [address] PCP - General Family Medicine 12/24/15 documented as of this encounter
--- OUTSIDE RECORDS SUMMARY | 2024-09-12 12:44 | XMS_ITS | Encounter Summary ---
Author Organization [place] [address] Care Team Providers Care Clay Caster Name Role Phone Dora Hernandez MD Primary Care Provider [phone] Reason for Visit * Reason Comments Medication Refill Encounter Details Date Type Department Care Team (Late st Contact Info) Description 02/26/2022 Refill SEP [facility] [address] [facility] [place] [address] Dora Hernandez MD [address] [place] [address] Medication Refill Social History Tobacco [...] AM CODY Redd Elsiyesenia Freeman MA documented as of this encounter Mental [...] TABLET EVERY DAY 90 Tablet 2 02/27/2022 01/06/2023 documented in this encounter Miscellaneous Notes * Telephone Encounter - Petra Partida CCMA - 02/27/2022 3:46 PM EDT documented in this encounter Plan [...] hypertension Take 1 Tablet by mouth daily. 07/17/2021 02/27/2022 documented as of this encounter Additional Health Concerns Assessment Noted Time A fall risk assessment has been complete d for the patient 04/17/2021 3:08 PM EDT documented as of this encounter Care Teams Clay Caster Relationship Specialty Start Date End Date Dora Hernandez MD [address] [facility] [address] PCP - General Family Medicine 12/24/15 documented as of this encounter
--- OUTSIDE RECORDS SUMMARY | 2024-09-12 12:44 | XMS_ITS | Encounter Summary ---
Author Organization [place] [address] Care Team Providers Care Floor Runner Name Role Phone Dora Hernandez MD Primary Care Provider [phone] Reason for Visit * Reason Comments Medication Refill Encounter Details Date Type Department Care Team (Late st Contact Info) Description 09/24/2021 Refill SEP Gloria Leon [address] [facility] [place] [address] Dora Hernandez MD [address] [place] [address] Medication Refill Social History Tobacco [...] 1 CAPSULE EVERY NIGHT 90 Capsule 1 09/25/2021 2 documented in this encounter Miscellaneous Notes * Telephone Encounter - Ree Stout CCMA - 09/25/2021 11:51 AM EST RX APPROVED documented in this encounter Plan of Treatment [...] Stay Tobacco Free Lifestyle No Kim Solis RMMalcolm documented as of this encounter Visit Diagnoses Diagnosis BPH without urinary obstruction Hypertrophy of prostate without urinary obstruction and other lower urinary tract symptoms (LUTS) documented in this encounter Discontinued Medications Medication Sig Discontinue Reason Start Date End Da te tamsulosin (FLOMAX) 0.4 mg Oral CapsuleIndications:BPH without urinary obstruction TAKE 1 CAPSULE EVERY NIGHT 05/07/2021 09/25/2021 documented as of this encounter Additional Health Concerns Assessment Noted Time A fall risk assessment has been complete d for the patient 04/17/2021 3:08 PM EDT documented as of this encounter Care Teams Floor Runner Relationship Specialty Start Date End Date Dora Hernandez MD [address] [place] [address] PCP - General Family Medicine 12/24/15 documented as of this encounter
--- OUTSIDE RECORDS SUMMARY | 2024-09-12 12:44 | XMS_ITS | Encounter Summary ---
Author Organization [place] [address] Care Team Providers Care Rubber Stamp Dies Inspector Name Role Phone Dora Hernandez MD Primary Care Provider [phone] Reason for Visit * Reason Comments Medication Refill Encounter Details Date Type Department Care Team (Late st Contact Info) Description 03/09[facility] [address] [facility] [place] [address] Dora Hernandez MD [address] [place] [address] Medication Refill Social History Tobacco [...] Assessment Author No 09/12/2021 11:11 AM Elsi Santoricia, MA * Does this person have serious difficulty walking or climbing stairs? Answer Date of Assessment Author No 09/12/2021 11:11 AM CODY BrooksElsi ramirezMIK lucia * Does this person have difficulty dressing or bathing? Answer Date of Assessment Author No 09/12/2021 11:11 AM CODY BrooksElsi ramirezricia MIK * Because of a physical, mental or emotional condition, does this person have difficulty doing errands alone such as visiting a doctor's office or shopping? Answer Date of Assessment Author No 09/12/2021 11:11 AM Elsi Santo MIK documented as of this encounter Mental Status * Because of a physical, mental or emotional condition, does this person have serious difficulty concentrating, remembering or making decisions? Answer Entry Date Author No 09/12/2021 11:11 AM CODY ReddElsi ramirezricia MIK documented in this encounter Miscellaneous Notes * Telephone Encounter - Jeanna Vazquez CPhT - 03/11/2022 4:20 PM EDT Losartan- Medication refill requested too soon. Refill request denied. Refills sent on 06/04/2021 with Qty: 90 and 3 refills. Jesse did not contact pharmacy. Patient notified via gokitt (if MyChart active). documented in this encounter Plan of Treatment [...] documented as of this encounter Care Teams Rubber Stamp Dies Inspector Relationship Specialty Start Date End Date Dora Hernandez MD [address] [place] [address] PCP - General Family Medicine 12/24/15 documented as of this encounter
--- OUTSIDE RECORDS SUMMARY | 2024-09-12 12:44 | XMS_ITS | Encounter Summary ---
Author Organization [place] [address] Care Team Providers Care Senior Controls Technician Name Role Phone Dora Hernandez MD Primary Care Provider [phone] Reason for Visit * Reason Comments Medication Refill Encounter Details Date Type Department Care Team (Late st Contact Info) Description 12/11[facility] [address] [facility] [place] [address] Dora Hernandez MD [address] [place] [address] Medication Refill Social History Tobacco [...] 11:11 AM CODY Redd Elsi MIK Freeman * Does this person have difficulty dressing or bathing? Answer Date of Assessment Author No 09/12/2021 11:11 AM CODY Redd Elsi BashirMIK lucia * Because of a physical, mental or emotional condition, does this person have difficulty doing errands alone such as visiting a doctor's office or shopping? Answer Date of Assessment Author No 09/12/2021 11:11 AM CODY BrooksElsi ramirezMIK lucia documented as of this encounter Mental Status * Because of a physical, mental or emotional condition, does this person have serious difficulty concentrating, remembering or making decisions? Answer Entry Date Author No 09/12/2021 11:11 AM CODY Redd Elsi MIK Freeman documented in this encounter Ordered Prescriptions Prescription Sig Dispense Quantity Refills Last Filled Start Date End Date metoprolol succinate ER (TOPROL-XL) 100 mg Oral Tablet Sustained Release 24 hr TAKE 1 TABLET EVERY DAY 90 Tablet 12/12/2021 02/18/2022 documented in this encounter Miscellaneous Notes * Telephone Encounter - Amparo Loza CPhT - 12/12/2021 11:51 AM EST metoprolol Medication Refill Protocol passed. Jesse Action: Approved refills to noted follow-up date by provider or protocol if no follow-up date noted. documented in this encounter Plan of [...] Saldana RMA Stay Tobacco Free Lifestyle No Solis, Kim Edilma, RMA documented as of this encounter Visit Diagnoses Not on filedocumented in this encounter Discontinued Medications Medication Sig Discontinue Reason Start Date End Da te metoprolol succinate ER (TOPROL-XL) 100 mg Oral Tablet Sustained Release 24 hr TAKE 1 TABLET EVERY DAY 09/04/2021 12/12/2021 documented as of this encounter Additional Health Concerns Assessment Noted Time A fall risk assessment has been complete d for the patient 04/17/2021 3:08 PM EDT documented as of this encounter Care Teams Senior Controls Technician Relationship Specialty Start Date End Date Dora Hernandez MD [address] [place] [address] PCP - General Family Medicine 12/24/15 documented as of this encounter
--- OUTSIDE RECORDS SUMMARY | 2024-09-12 12:44 | XMS_ITS | Encounter Summary ---
Author Organization [place] [address] Care Team Providers Care Clinical Ob Name Role Phone Dora Hernandez MD Primary Care Provider [phone] Reason for Visit * Reason Comments Medication Refill Encounter Details Date Type Department Care Team (Late st Contact Info) Description 08/28/2022 Refill SEP [facility] [address] [facility] [place] [address] Dora Hernandez MD [address] [place] [address] Medication Refill Social History Tobacco [...] Date fluticasone propionate (FLONASE) 50 mcg/actuation Nasl [place], SuspensionIndicati ons:Seasonal allergic rhinitis, unspecified trigger USE 2 SPRAYS NASALLY EVERY DAY 48 g 08/28/2022 documented in this encounter Plan of Treatment [...] te fluticasone propionate (FLONASE) 50 mcg/actuation Nasl [place], SuspensionIndications:Se asonal allergic rhinitis, unspecified trigger USE 2 SPRAYS NASALLY EVERY DAY 04/09/2022 08/28/2022 documented as of this encounter Additional Health Concerns Assessment Noted Time A fall risk assessment has been complete d for the patient 04/17/2021 3:08 PM EDT documented as of this encounter Care Teams Clinical Ob Relationship Specialty Start Date End Date Dora Hernandez MD [address] [place] [address] PCP - General Family Medicine 12/24/15 documented as of this encounter
--- OUTSIDE RECORDS SUMMARY | 2024-09-12 12:44 | XMS_ITS | Encounter Summary ---
Author Organization [facility] [place] [address] Care Team Providers Care Can Sterilizer Name Role Phone Dora Hernandez MD Primary Care Provider [phone] Encounter Details Date Type Department Care Team (Latest Contact Info) Description 09/29/2021 Travel Social History Tobacco Use Types Packs/Day [...] have Coronavirus / COVID-19? No / Unsure 09/29/2021 1:31 PM EST documented as of this encounter Functional [...] documented as of this encounter Care Teams Can Sterilizer Relationship Specialty Start Date End Date oDra Hernandez MD [address] [place] [address] PCP - General Family Medicine 12/24/15 documented as of this encounter
--- OUTSIDE RECORDS SUMMARY | 2024-09-12 12:44 | XMS_ITS | Encounter Summary ---
Author [place] [address] Care Team Providers Care Senior Sql Server Developer Name Role Phone Dora Hernandez MD Primary Care Provider [phone] Reason for Visit * Reason Comments COVID-19 Vaccine Pfizer booster given R deltoid im Encounter Details Date Type Department Care Team (Latest Contact Info) Description 09/29/2021 1:30 PM EST Clinical [facility] [address] [place] [address] Jennifer Garcia, A [address] [place] [address] Need for COVID-19 vaccine (Primary Dx) Social History Tobacco Use Types Packs/Day Years [...] Progress Notes * Jennifer Garcia RMA - 09/29/2021 1:30 PM EST Pfizer booster given R deltoid im documented in this [...] as of this encounter Visit Diagnoses Diagnosis Need for COVID-19 vaccine- Primary documented in this encounter Orders Immunization/Injection Count Last Ordered Date First Ordered Date PFIZER SARS-COV-2 VACCINE 1 09/29/2021 documented in this encounter Additional Health Concerns Assessment Noted Time A fall risk assessment has been complete d for the patient 04/17/2021 3:08 PM EDT documented as of this encounter Care Teams Senior Sql Server Developer Relationship Specialty Start Date End Date Dora Hernandez MD [address] [place] [address] PCP - General Family Medicine 12/24/15 documented as of this encounter
--- OUTSIDE RECORDS SUMMARY | 2024-09-12 12:44 | XMS_ITS | Encounter Summary ---
Author Organization [place] [address] Care Team Providers Care Show Card Letterer Name Role Phone Dora Hernandez MD Primary Care Provider [phone] Reason for Visit * Reason Comments Medication Refill Encounter Details Date Type Department Care Team (Late st Contact Info) Description 08/07[facility]2022 [facility] [address] [facility] [place] [address] Dora Hernandez MD [address] [place] [address] Medication Refill Social History Tobacco [...] 1 TABLET BY MOUTH DAILY 90 Tablet 08/10/2022 11/11/2022 documented in this encounter Plan of Treatment [...] Tablet TAKE ONE TABLET BY MOUTH DAILY 05/07/2022 08/10/2022 documented as of this encounter Additional Health Concerns Assessment Noted Time A fall risk assessment has been complete d for the patient 04/17/2021 3:08 PM EDT documented as of this encounter Care Teams Show Card Letterer Relationship Specialty Start Date End Date Dora Hernandez MD [address] [facility] [address] PCP - General Family Medicine 12/24/15 documented as of this encounter
--- OUTSIDE RECORDS SUMMARY | 2024-09-12 12:44 | XMS_ITS | Encounter Summary ---
Author Organization [place] [address] Care Team Providers Care Ship Yard Electrical Person Name Role Phone Dora Hernandez MD Primary Care Provider [phone] Reason for Visit * Reason Comments Medication Refill Encounter Details Date Type Department Care Team (Late st Contact Info) Description 12/30/2021 [facility] [address] [facility] [place] [place] [address] Dora Hernandez MD [address] [place] [address] Medication Refill Social History Tobacco [...] BY MOUTH DAILY 30 Tablet 2 12/30/2021 05/07/2022 documented in this encounter Plan of Treatment [...] te ezetimibe (ZETIA) 10 mg Oral Tablet Take 1 Tablet by mouth daily. 09/15/2021 12/30/2021 documented as of this encounter Additional Health Concerns Assessment Noted Time A fall risk assessment has been complete d for the patient 04/17/2021 3:08 PM EDT documented as of this encounter Care Teams Ship Yard Electrical Person Relationship Specialty Start Date End Date Dora Hernandez MD [address] [facility] [address] [place] [address] PCP - General Family Medicine 12/24/15 documented as of this encounter
--- OUTSIDE RECORDS SUMMARY | 2024-09-12 12:44 | XMS_ITS | Encounter Summary ---
Author Organization [place] [address] Care Team Providers Care Physical Instructor Name Role Phone Dora Hernandez MD Primary Care Provider [phone] Reason for Visit * Reason Comments Medication Refill Encounter Details Date Type Department Care Team (Late st Contact Info) Description 04/09/2022 Refill SEP [facility] [address] [facility] [place] [address] Dora Hernandez MD [address] [place] [address] Medication Refill Social History Tobacco [...] Date fluticasone propionate (FLONASE) 50 mcg/actuation Nasl [place], SuspensionIndicati ons:Seasonal allergic rhinitis, unspecified trigger USE 2 SPRAYS NASALLY EVERY DAY 48 g 04/09/2022 2 documented in this encounter Plan of Treatment [...] te fluticasone propionate (FLONASE) 50 mcg/actuation Nasl [place], SuspensionIndications:Se asonal allergic rhinitis, unspecified trigger USE 2 SPRAYS NASALLY EVERY DAY 02/03/2022 04/09/2022 documented as of this encounter Additional Health Concerns Assessment Noted Time A fall risk assessment has been complete d for the patient 04/17/2021 3:08 PM EDT documented as of this encounter Care Teams Physical Instructor Relationship Specialty Start Date End Date Dora Hernandez MD [address] [place] [address] PCP - General Family Medicine 12/24/15 documented as of this encounter
--- OUTSIDE RECORDS SUMMARY | 2024-09-12 12:44 | XMS_ITS | Encounter Summary ---
Author Organization [place] [address] Care Team Providers Care Local Owner Operator Truck Driver Name Role Phone Dora Hernandez MD Primary Care Provider [phone] Reason for Visit * Reason Onset Date Comments Medication Refill 08/10/2022 gabapentin (NE URONTIN) 100 mg Oral Capsule 120 Capsule 4 05/06/2022 Sig - Route: Take 2 Capsules by mouth 2 times daily. - Oral Class: Print Encounter Details Date Type Department Care Team (Late st Contact Info) Description 08/10/2022 Refill SEP [facility] [address] [place] [address] Dora Hernandez MD [address] [place] [address] Medication Refill (gabapentin (NEURONTIN) 100 mg Oral Capsule 120 Capsule 4 05/06/2022 /Sig - Route: Take 2 Capsules by mouth 2 times daily. - Oral /Class: Print //) Social History Tobacco Use Types Packs/Day Years [...] * Telephone Encounter - Hieu Vasquez - 08/12/2022 9:58 AM EDT Called pt to schedule appt, left vm. If pt calls back call center, please schedule next available office visit in September. Thank you * Telephone Encounter - Petra Partida CCMA - 08/11/2022 4:55 PM EDT Please call pt to schedule in 09/2022 and to sign new CSTA * Telephone Encounter - Petra Partida CCMA - 08/11/2022 4:52 PM EDT noted. No longer at [facility] pharmacy. Pt already had it filled at [facility]. Even though [facility] has no record of pt. * Telephone Encounter - Dora Hernandez MD - 08/11/2022 11:06 AM EDT Yes needs CSTA updated. Can sisal picker available refill at [facility]. If needs transferred, pls cancel refill at [facility] and I can send to new pharmacy. * Telephone Encounter - Petra Partida CCMA - 08/11/2022 10:32 AM EDT Spoke with pt's . They had the rx transferred to [facility] without our knowledge. CSTA filled out in 2017 noted [facility] in [place]. They are out of town at this time. Need for new CSTA, correct? * Telephone Encounter - Dora Hernandez MD - 08/11/2022 8:09 AM EDT pls call pt to clarify - should still have refill available at [facility] pharmacy. * Telephone Encounter - Keyonna Ahn MA - 08/10/2022 3:32 PM EDT pts calling in regard to this she is worried they leave tonight for vacation and need it sent in before 530 pm * Telephone Encounter - Lydia Mcwilliams CMA - 08/10/2022 10:10 AM EDT DESTINEE: 04/13/2022 CSTA-12/01/16 BENOZ-12/01/16 SOAPP-12/01/16 HCC audit completed by Estella Wu on 07/02/2021. [facility] audit completed by Marisela Parker RN on 07/08/2021. CYNDIE for controlled for this medication 04/13/22 NOV--Visit date not found Gabapentin Last refilled on 05/06/22 for 120 tablets with 4 refills but was set as print Med has been pended for review * Telephone Encounter - Jahaira Coffey - 08/10/2022 10:03 AM EDT Medication Refill Who is requesting the refill: Patient Medication(s)Name/Dosage/Frequency: gabapentin (NEURONTIN) 100 mg Oral Capsule 120 Capsule 4 05/06/2022 Sig - Route: Take 2 Capsules by mouth 2 times daily. - Oral Class: Print Did patient contact the pharmacy first: No How many days left on hand: 0 Future appt date w/ prescribing provider: [facility] Additional Notes: documented in this encounter Plan [...] idiopathic peripheral neuropathy documented in this encounter Additional Health Concerns Assessment Noted Time A fall risk assessment has been complete d for the patient 04/17/2021 3:08 PM EDT documented as of this encounter Care Teams Local Owner Operator Truck Driver Relationship Specialty Start Date End Date Dora Hernandez MD [address] [place] [address] PCP - General Family Medicine 12/24/15 documented as of this encounter
--- OUTSIDE RECORDS SUMMARY | 2024-09-12 12:44 | XMS_ITS | Encounter Summary ---
Author Organization [facility] [place] [address] Care Team Providers Care Clerk Secretary Name Role Phone Dora Hernandez MD Primary Care Provider [phone] Encounter Details Date Type Department Care Team (Latest Contact Info) Description 04/14/2022 Travel Social History Tobacco Use Types Packs/Day [...] documented as of this encounter Care Teams Clerk Secretary Relationship Specialty Start Date End Date Dora Hernandez MD [address] [place] [address] PCP - General Family Medicine 12/24/15 documented as of this encounter
--- OUTSIDE RECORDS SUMMARY | 2024-09-12 12:44 | XMS_ITS | Encounter Summary ---
Author Organization [place] [address] Care Team Providers Care Automotive Tire Tester Name Role Phone Dora Hernandez MD Primary Care Provider Reason for Visit * Reason Comments Medication Refill Encounter Details Date Type Department Care Team (Late st Contact Info) Description 07/09/2022 [facility] [address] [place] [address] Dora Hernandez MD [address] [place] [address] Medication Refill Social History Tobacco [...] AM CODY Redd Elsi MIK Freeman * Because of a physical, mental or [...] 1 TABLET EVERY DAY 90 Tablet 07/10/2022 12/17/2022 documented in this encounter Miscellaneous Notes * Telephone Encounter - Kaylin Neely CPhT - 07/10/2022 11:47 AM EDT metoprolol succinate ER- Medication Refill Protocol passed. Jesse Action: Approved refills to noted follow-up date by provider or protocol if no follow-up date noted. No associated diagnosis code with Rx documented in this encounter Plan of Treatment [...] maintain an ideal body weight General No Les, Aurelia Yarelis, RMA Stay Tobacco Free Lifestyle No Kim Solis RMA documented as of this encounter Visit Diagnoses Not on filedocumented in this encounter Discontinued Medications Medication Sig Discontinue Reason Start Date End Da te metoprolol succinate ER (TOPROL-XL) 100 mg Oral Tablet Sustained Release 24 hr TAKE 1 TABLET EVERY DAY 02/18/2022 07/10/2022 documented as of this encounter Additional Health Concerns Assessment Noted Time A fall risk assessment has been complete d for the patient 04/17/2021 3:08 PM EDT documented as of this encounter Care Teams Automotive Tire Tester Relationship Specialty Start Date End Date Dora Hernandez MD [address] [place] [address] PCP - General Family Medicine 12/24/15 documented as of this encounter
--- OUTSIDE RECORDS SUMMARY | 2024-09-12 12:44 | XMS_ITS | Encounter Summary ---
Author Organization [place] [address] Care Team Providers Care Merchandise Associate Name Role Phone Dora Hernandez MD Primary Care Provider [phone] Reason for Visit * Reason Comments Medication Refill Encounter Details Date Type Department Care Team (Late st Contact Info) Description 04/03/2022 Refill SEP Gloria [facility] [address] [facility] [place] [address] Dora Hernandez MD [address] [place] [address] Medication Refill Social History Tobacco [...] 1 TABLET EVERY DAY 90 Tablet 04/06/2022 06/09/2022 documented in this encounter Miscellaneous Notes * Telephone Encounter - Jenaro Mena CPhT - 04/06/2022 9:54 AM EDT losartan - Medication Refill Protocol failed due to labs or vitals. compressor assembler Reason: Abnormal serum potassium OR potassium not on file within 6 months, Blood pressure not on file within 6 months and Serum creatinine not on file within 6 months compressor assembler Action: Defer to office. Patient needs labwork or vitals completed. Routed to office staff for outreach. This diagnosis was last assessed on 09/12/2021. documented in this encounter Plan of Treatment [...] (COZAAR) 50 mg Oral TabletIndications:Alejandra al hypertension Take 1 Tablet by mouth daily. 06/04/2021 04/06/2022 documented as of this encounter Additional Health Concerns Assessment Noted Time A fall risk assessment has been complete d for the patient 04/17/2021 3:08 PM EDT documented as of this encounter Care Teams Merchandise Associate Relationship Specialty Start Date End Date Dora Hernandez MD [address] [place] [address] PCP - General Family Medicine 12/24/15 documented as of this encounter
--- OUTSIDE RECORDS SUMMARY | 2024-09-12 12:44 | XMS_ITS | Encounter Summary ---
Author Organization [place] [address] Care Team Providers Care Toy Electric Train Repairer Name Role Phone Dora Hernandez MD Primary Care Provider [phone] Reason for Visit * Reason Onset Date Comments Immunizations 09/05/2021 needs new card Encounter Details Date Type Department Care Team (Late st Contact Info) Description 09/05/2021 Telephone [facility] [address] [facility] [place] [address] Dora Hernandez MD [address] [facility] [place] [address] Immunizations (needs new card) Social History Tobacco Use Types Packs/Day Years [...] hearing? Answer Date of Assessment Author No 08/31/2019 10:12 AM Ree Haddad CCMA * Is the person blind or does he/she have serious difficulty seeing even when wearing glasses? Answer Date of Assessment Author No 08/31/2019 10:12 AM Ree Haddad CCMA * Does this person have serious difficulty walking or climbing stairs? Answer Date of Assessment Author No 08/31/2019 10:12 AM Ree Haddad CCMA * Does this person have difficulty dressing or bathing? Answer Date of Assessment Author No 08/31/2019 10:12 AM Ree Haddad CCMA * Because of a physical, mental or emotional condition, does this person have difficulty doing errands alone such as visiting a doctor's office or shopping? Answer Date of Assessment Author No 08/31/2019 10:12 AM Ree Haddad CCMA documented as of this encounter Mental Status * Because of a physical, mental or emotional condition, does this person have serious difficulty concentrating, remembering or making decisions? Answer Entry Date Author No 08/31/2019 10:12 AM Ree Haddad CCMA documented in this encounter Miscellaneous Notes * Telephone Encounter - Ree Stout CCMA - 09/05/2021 2:28 PM EST Noted * Telephone Encounter - Aurelia Saldana RMA - 09/05/2021 12:03 PM EST Just an FYI for next Wednesday * Telephone Encounter - Reyes Melo COA - 09/05/2021 10:52 AM EST Pt spouse requesting new covid vaccine card. Pt has appt 09/12/21 and would like to slat pickler copy atappt. documented in this encounter Plan of Treatment [...] documented as of this encounter Care Teams Toy Electric Train Repairer Relationship Specialty Start Date End Date Dora Hernandez MD [address] [place] [address] PCP - General Family Medicine 12/24/15 documented as of this encounter
--- OUTSIDE RECORDS SUMMARY | 2024-09-12 12:44 | XMS_ITS | Encounter Summary ---
Author Organization [place] [address] Care Team Providers Care Firmware Software Verification Engineer Name Role Phone Dora Hernandez MD Primary Care Provider [phone] Reason for Visit * Reason Comments Medication Refill Encounter Details Date Type Department Care Team (Late st Contact Info) Description 02/[facility] [address] [place] [address] Dora Hernandez MD [address] [place] [address] Medication Refill Social History Tobacco [...] AM CODY Redd Elsiyesenia Freeman MA * Does this person have [...] Elsiyesenia Freeman MA documented in this encounter Ordered Prescriptions Prescription Sig Dispense Quantity Refills Last Filled Start Date End Date metoprolol succinate ER (TOPROL-XL) 100 mg Oral Tablet Sustained Release 24 hr TAKE 1 TABLET EVERY DAY 90 Tablet 02/18/2022 07/10/2022 documented in this encounter Miscellaneous Notes * Telephone Encounter - Caryn Cobb CPhT - 02/18/2022 11:54 AM EDT Metoprolol- Medication Refill Protocol passed. Jesse Action: Defer to office. Patient has mail order that does not allow for 30- day supply. documented in this encounter Plan of Treatment [...] 24 hr TAKE 1 TABLET EVERY DAY 12/12/2021 02/18/2022 documented as of this encounter Additional Health Concerns Assessment Noted Time A fall risk assessment has been complete d for the patient 04/17/2021 3:08 PM EDT documented as of this encounter Care Teams Firmware Software Verification Engineer Relationship Specialty Start Date End Date Dora Hernandez MD [address] [place] [address] PCP - General Family Medicine 12/24/15 documented as of this encounter
--- OUTSIDE RECORDS SUMMARY | 2024-09-12 12:44 | XMS_ITS | Encounter Summary ---
Author Organization [place] [address] Care Team Providers Care Charge Account Identification Clerk Name Role Phone Dora Hernandez MD Primary Care Provider [phone] Reason for Visit * Reason Onset Date Comments Results 09/16/2021 lab Other 09/16/2021 returning call Encounter Details Date Type Department Care Team (Late st Contact Info) Description 09/16/2021 Telephone [facility] Gloria Leon [address] [place] [address] Dora Hernandez MD [address] [facility] [place] [address] Results (lab ); Other (returning call ) Social History Tobacco Use Types Packs/Day Years [...] encounter Miscellaneous Notes * Telephone Encounter - Mayuri Hernandez RMA - 09/16/2021 4:58 PM EST Pts was advised of results per Dr. Hernandez * Telephone Encounter - Reyes Melo COA - 09/16/2021 4:31 PM EST Kristyn returning call in regard to results. Call Center Note: Attempted Warm Transfer, no answer Please advise * Telephone Encounter - Mayuri Hernandez RMA - 09/16/2021 3:57 PM EST Tried to call pts back, stated it was okay to release labs with , she comes in to every appt with pt * Telephone Encounter - Marlen Sampson - 09/16/2021 3:36 PM EST Pt's returning call , try to xfer N/A, adv pt's pt needs to call since pt's is on ACF but nothing is checked (as per Mignon at office) , please call back kenan as this is the 3rd time pt's has call * Telephone Encounter - Ree Stout CCMA - 09/16/2021 1:17 PM EST Images from the original note were not included. GENNY Contreras 09/15/2021 ??4:27 PM EST Laboratory results received, patient notified by: Left message with ??[phone] ??to return callto the office.. Dora Hernandez MD 09/15/2021 ??8:01 AM EST Cholesterol levels are high off Statin. ??He had s/e from [facility]. Start zetia. Recheck labs in 6 months. Pls notify pt. Thanks. * Telephone Encounter - Marlen Sampson - 09/16/2021 12:22 PM EST Test Result(s) Purpose of call: pt's Type of test: Lab Date of test: 09/12 Who ordered the test: alexandre hernandez Where was test performed: [facility] Additional Notes: pt returning call , try to xfer N/A documented in this encounter Plan of Treatment [...] documented as of this encounter Care Teams Charge Account Identification Clerk Relationship Specialty Start Date End Date Dora Hernandze MD [address] [facility] [address] PCP - General Family Medicine 12/24/15 documented as of this encounter
--- OUTSIDE RECORDS SUMMARY | 2024-09-12 12:45 | XMS_ITS | Encounter Summary ---
Author Organization [place] [address] Care Team Providers Care Mill Roll Operator Name Role Phone Dora Hernandez MD Primary Care Provider [phone] Reason for Visit * Reason Comments Medication Refill Encounter Details Date Type Department Care Team (Late st Contact Info) Description 09/03/2021 Refill SEP Gloria Leon [address] [facility] [place] [address] Dora Hernandez MD [address] [place] [address] Medication Refill Social History Tobacco [...] Ree Haddad CCMA documented in this encounter Ordered Prescriptions Prescription Sig Dispense Quantity Refills Last Filled Start Date End Date metoprolol succinate ER (TOPROL-XL) 100 mg Oral Tablet Sustained Release 24 hr TAKE 1 TABLET EVERY DAY 90 Tablet 09/04/2021 12/12/2021 documented in this encounter Miscellaneous Notes * Telephone Encounter - Sajan Savage PharmD - 09/04/2021 11:42 AM EST metoprolol succinate ER (TOPROL-XL) 100 mg Oral Tablet Sustained Release 24 hr Medication Refill Protocol passed. [facility] Action: Approved 90-day supply due to scheduled appointment on 09/12/21. documented in this encounter Plan of Treatment [...] 24 hr TAKE 1 TABLET EVERY DAY 07/08/2021 09/04/2021 documented as of this encounter Additional Health Concerns Assessment Noted Time A fall risk assessment has been complete d for the patient 04/17/2021 3:08 PM EDT documented as of this encounter Care Teams Mill Roll Operator Relationship Specialty Start Date End Date Dora Hernandez MD [address] [facility] [address] [place] [address] PCP - General Family Medicine 12/24/15 documented as of this encounter
--- OUTSIDE RECORDS SUMMARY | 2024-09-12 12:45 | XMS_ITS | Encounter Summary ---
Author Organization [place] [address] Care Team Providers Care Valve Liner Rubber Name Role Phone Dora Hernandez MD Primary Care Provider Reason for Visit * Reason Onset Date Comments Medication Management 08/13/2020 Jackie mattson Medication Review Encounter Details Date Type Department Care Team (Late st Contact Info) Description 08/13/2020 Patient Outreach [facility] [address] [place] [address] Maribel West [facility] Medication Management (Comprehensive Medication Review) Social History Tobacco Use Types Packs/Day Years Used Date Smoking Tobacco: Former Cigarettes 2 50 0 01/02/1966 - 01/03/2016 Pipe Smokeless Tobacco: Never Alcohol Use Standard Drinks/Week Comments Yes 0 (1 standard drink = 0.6 oz pur e alcohol) beer and wine PHQ-2 Answer Date Recorded PHQ-2 Score 0 08/31/2019 Sex and Gender Information Value Date Recorded Sex Assigned at Not on file Legal Sex Male 2:45 AM EDT Gender Identity Not on file Sexual Orientation Not on file COVID-19 Exposure Response Date Recorded In the last month, have you been in contact with someone who was confirmed or suspected to have Coronavirus / COVID-19? No / Unsure 08/13/2020 2:33 PM EDT documented as of this encounter [...] Ree Haddad CCMA documented in this encounter Progress Notes * Maribel West RPH - 08/13/2020 3:36 PM EDT Pharmacy Consult 08/19/2020 with Maribel West RPH: Jac Garvin was referred for comprehensive medication review (CMR) with pharmacist. Medications were reviewed for appropriateness, efficacy, and ADRs. Pharmacist met with patient in person. Subjective: Patient's chief complaint with regards to medication is none. Patient is a good historian. Patient is able to provide most information about home medications including name, dose, frequency, and indication with minimal prompting from pharmacist. Adherence with medication regimen assessed. Patient admits to missing 0 doses of any of his medications. Patient currently taking amlodipine, losartan, and metoprolol succinate for blood pressure. Does not report any issues with dizziness. Does not check BP regularly. States that he has never had a heart attack, stroke, or any other cardiac event. 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 Takes aspirin dailyand rosuvastatin every night. Applies diclofenac topical gel to both knees and occasionally to his hands. Also uses naproxen as needed when he plays golf and takes gabapentin for neuropathy in his feet. Patient states that he uses Flonase every day for his allergies. He sprays two sprays into each nostril consecutively with no time in between. Patient takes tamsulosin every night, which he states helps with his bladder control. States that he wakes up at night to go to the bathroom when he has consumed too much water and other liquids before bed. He takes lorazepam as needed for anxiety. Does not use very often, but did have to take one prior to appointment today. Patient takes a daily multivitamin. He also takes ICAPS vitamin, which were recommended by his garland machine operator. Has been taking cod liver oil for as long as he can remember and is insistent to continue taking as he attributes this to never having a cold or the flu. Takes daily probiotic as well,which he started taking last year when he was taking antibiotics. Objective: Current Outpatient Medications: ??? amLODIPine (NORVASC) 10 mg Oral Tablet, TAKE 1 TABLET EVERY DAY, Disp: 90 Tab, Rfl: 0 ??? aspirin (ASPIRIN LOW DOSE) 81 mg Oral Tablet, Delayed Release (E.C.), Take 1 Tab by mouth daily., Disp: , Rfl: ??? Cod Liver Oil Oral Oil, Take by mouth daily., Disp: , Rfl: ??? diclofenac (VOLTAREN) 1 % Top Gel, APPLY 2 GRAMS TOPICALLY 4 TIMES DAILY., Disp: 300 g, Rfl: 2 ??? fluticasone (FLONASE) 50 mcg/actuation Nasl [place], Suspension, 2 Sprays by Nasal route daily., Disp: 1 Bottle, Rfl: 5 ??? gabapentin (NEURONTIN) 100 mg Oral Capsule, Take 2 Caps by mouth 2 times daily., Disp: 120 Cap,Rfl: 2 ??? Lactobac no.41/Bifidobact no.7 (PROBIOTIC-10 ORAL), Take by mouth., Disp: , Rfl: ??? LORazepam (ATIVAN) 0.5 mg Oral Tablet, Take 1 Tab by mouth every 8 hours as needed for Anxiety., Disp: 30 Tab, Rfl: 0 ??? losartan (COZAAR) 50 mg Oral Tablet, Take 1 Tab by mouth daily., Disp: 90 Tab, Rfl: 3 ??? metoprolol succinate ER (TOPROL-XL) 100 mg Oral Tablet Sustained Release 24 hr, TAKE 1 TABLET EVERY DAY, Disp: 90 Tab, Rfl: 0 ??? MULTI-VITAMIN ORAL, Take by mouth daily., Disp: , Rfl: ??? naproxen sodium (ANAPROX) 220 mg Oral Tablet, Take 220 mg by mouth as needed., Disp: , Rfl: ??? rosuvastatin (CRESTOR) 5 mg Oral Tablet, Take 1 Tab by mouth nightly., Disp: 90 Tab, Rfl: 2 ??? tamsulosin (FLOMAX) 0.4 mg Oral Capsule, TAKE 1 CAPSULE EVERY NIGHT, Disp: 30 Cap, Rfl: 0 ??? vit A/vit C/vit E/zinc/copper (ICAPS AREDS ORAL), Take by mouth daily., Disp: , Rfl: Relevant Labs: Lab Results Component Value Date CREATININE 1.18 08/31/2019 BUN 17 08/31/2019 NA 138 08/31/2019 K 4.0 08/31/2019 CL 103 08/31/2019 CO2 23 08/31/2019 GFRAFRAM 69 08/31/2019 GFRNONAFRAM 60 08/31/2019 BP Readings from Last 3 Encounters: 08/13/20 140/72 12/26/19 140/80 10/03/19 120/70 Pulse Readings from Last 3 Encounters: 08/13/20 90 12/26/19 63 10/03/19 65 Wt Readings from Last 3 Encounters: 08/13/20 260 lb (117.9 kg) 12/26/19 261 lb (118.4 kg) 10/03/19 257 lb (116.6 kg) Lab Results Component Value Date CHOLESTEROL 221 (H) 08/31/2019 CHOLESTEROL 173 12/23/2015 CHOLESTEROL 231 (H) 11/12/2014 Lab Results Component Value Date HDL 51 08/31/2019 HDL 50 12/23/2015 HDL 67 11/12/2014 Lab Results Component Value Date LDLCALC 143 (H) 08/31/2019 LDLCALC 103 (H) 12/23/2015 LDLCALC 132 (H) 11/12/2014 No results found for: LDLDIRECT Lab Results Component Value Date TRIG 135 08/31/2019 TRIG 98 12/23/2015 TRIG 162 (H) 11/12/2014 The 10-year ASCVD risk score (Viet VERA Jr., et al., 2013) is: 36.8% Values used to calculate the score: Age: 79 years Sex: Male Is Non- : No Diabetic: No Tobacco smoker: No Systolic Blood Pressure: 140 mmHg Is BP treated: Yes HDL Cholesterol: 51 mg/dL Total Cholesterol: 221 mg/dL Immunization History Administered Date(s) Administered ??? Influenza High Dose 08/31/2019 ??? Pneumococcal Conjugate Vaccine 13 Valent 2015 ??? Pneumococcal Polysaccharide 23 Valent 06/19/2019 ??? Quadrivalent Influenza High Dose 08/13/2020 ??? Td, Unspecified Formulation 07/17/2012 Lab Results Component Value Date HGBA1C 5.5 12/23/2015 No results found for: TSHREFLEX No results found for: NBCF01JC Assessment: HTN/CAD: amlodipine 10 mg daily, ASA 81 mg daily, losartan 50 mg daily, rosuvastatin 5 mg nightly, metoprolol succinate 100 mg daily ?? BP 140/72 on 08/13/20, above goal of <130/80. ?? Consider increasing losartan to 100 mg daily for improved BP control. ?? LDL 143 on 08/31/2019, above goal of < 70. Repeat LDL ordered. ?? Consider increasing rosuvastatin to 20 mg daily if LDL remains > 70. Pain/Neuropathy: gabapentin 200 mg twice daily, naproxen 220 mg as needed, diclofenac 1% topical gel 2 g four times daily ?? Continue current therapy. Allergies: Flonase 2 sprays in each nostril daily ?? Advised patient to wait a few minutes before instilling second spray in each nostril to maximizeefficacy. BPH: tamsulosin 0.4 mg daily ?? Continue current therapy. Anxiety: lorazepam 0.5 mg every 8 hours as needed ?? Continue current therapy. OTC: cod liver oil daily, probiotic daily, multivitamin daily, ICAPS daily ?? Advised patient to stop taking probiotic. Problem Pharmacist Recommendation HTN/CAD: BP 140/72 on 08/13/20, above goal of <130/80 LDL 143 on 08/31/2019, above goal of < 70 ?? Consider increasing losartan to 100 mg daily for improved BP control. ?? Consider increasing rosuvastatin to 20 mg daily if LDL remains > 70. Allergies: patient is spraying 2 sprays consecutively in each nostril ?? Advised patient to wait a few minutes before instilling second spray in each nostril to maximize efficacy. OTC: patient has continuously been taking a probiotic after completing ABX ?? Advised patient to stop taking probiotic. Health Maintenance Topics Addressed ?? Patient is due for Shingrix vaccine. Thank you for allowing me to participate in the care of this patient. Maribel West, Shivam PGY2 Foil Stamp Operator Lamina Searcher documented in this encounter Miscellaneous Notes * Telephone Encounter - Zak Morton RPH - 08/20/2020 8:53 AM EDT To my knowledge this information is accurate as of 08/20/2020 8:53 AM. MARIAJOSE Morton PharmD, BCPS documented in this encounter Plan of Treatment [...] Da te amLODIPine (NORVASC) 10 mg Oral TabletIndications:Essent ial hypertension TAKE 1 TABLET EVERY DAY DELETE- Entered in Error 07/18/2020 08/13/2020 metoprolol succinate ER (TOPROL-XL) 100 mg Oral Tablet Sustained Release 24 hrIndications:Essential hypertension Take 1 Tab by mouth daily. DELETE-Duplicate 2019 08/13/2020 Lactobac no.41/Bifidobact no.7 (PROBIOTIC-10 ORAL) Take by mouth. DELETE- Entered in Error 08/19/2020 documented as of this encounter Historical Medications * This list may reflect changes made after this encounter. naproxen sodium (ANAPROX) 220 mg Oral Tablet Take 220 mg by mouth as needed. 02/25/2023 added in this encounter Additional Health Concerns Assessment Noted Time A fall risk assessment has been complete d for the patient 10/03/2019 8:29 AM EST documented as of this encounter Care Teams Valve Liner Rubber Relationship Specialty Start Date End Date Dora Hernandez MD [address] [place] [address] PCP - General Family Medicine 12/24/15 documented as of this encounter
--- OUTSIDE RECORDS SUMMARY | 2024-09-12 12:45 | XMS_ITS | Encounter Summary ---
Author Organization [facility] [place] [address] Care Team Providers Care Chip Washer Name Role Phone Dora Hernandez MD Primary Care Provider [phone] Encounter Details Date Type Department Care Team (Latest Contact Info) Description 08/13/2020 Travel Social History Tobacco Use Types Packs/Day [...] Ree Haddad CCMA documented in this encounter Plan of [...] documented as of this encounter Care Teams Chip Washer Relationship Specialty Start Date End Date Dora Hernandez MD [address] [place] [id number] PCP - General Family Medicine 12/24/15 documented as of this encounter
--- OUTSIDE RECORDS SUMMARY | 2024-09-12 12:45 | XMS_ITS | Encounter Summary ---
Author Organization [place] [address] Care Team Providers Care Computer Programming Manager Name Role Phone Dora Hernandez MD Primary Care Provider [phone] Reason for Visit * Reason Onset Date Comments Medication Refill 02/20/2021 metoprolol Encounter Details Date Type Department Care Team (Late st Contact Info) Description 02/20/2021 Refill SEP Gloria Leon [address] [place] [address] Dora Hernandez MD [address] [place] [address] Medication Refill (metoprolol ) Social History Tobacco Use Types Packs/Day [...] mg Oral Tablet Sustained Release 24 hr Take 1 Tab by mouth daily. 90 Tab 02/20/2021 04/21/2021 documented in this encounter Miscellaneous Notes * Telephone Encounter - Cee Gleason - 02/20/2021 3:06 PM EDT Medication Refill Who is requesting the refill: Pharmacy [facility] Medication(s)Name/Dosage/Frequency: metoprolol succinate ER (TOPROL-XL) 100 mg Oral Tablet Sustained Release 24 hr 90 Tab 0 12/05/2020 How many days left on hand: n/a Future appt date w/ prescribing provider: none Pharmacy & Location: [facility] [place] [address] [address] - [phone] documented in this encounter Plan of Treatment [...] hr TAKE 1 TABLET EVERY DAY Reorder 12/05/2020 02/20/2021 documented as of this encounter Additional Health Concerns Assessment Noted Time A fall risk assessment has been complete d for the patient 10/03/2019 8:29 AM EST documented as of this encounter Care Teams Computer Programming Manager Relationship Specialty Start Date End Date Dora Hernandez MD [address] [place] [address] PCP - General Family Medicine 12/24/15 documented as of this encounter
--- OUTSIDE RECORDS SUMMARY | 2024-09-12 12:45 | XMS_ITS | Encounter Summary ---
Author Organization [place] [address] Care Team Providers Care Bus Cleaner Name Role Phone Dora Hernandez MD Primary Care Provider [phone] Encounter Details Date Type Department Care Team (Late st Contact Info) Description 09/07/2020 [facility] [address] [facility] [place] [address] Kim He MD [address] [facility] [place] [address] Peripheral polyneuropathy Social History Tobacco Use Types Packs/Day Years [...] of Assessment Author No 08/31/2019 10:12 AM EST Ree Stout CCMA * Is the person blind or [...] mg Oral CapsuleIndications:P eripheral polyneuropathy Take 2 Caps by mouth 2 times daily. 120 Cap 2 09/07/2020 1 documented in this encounter Plan of Treatment [...] Da te gabapentin (NEURONTIN) 100 mg Oral CapsuleIndications:Peripher al polyneuropathy Take 2 Caps by mouth 2 times daily. Reorder 05/13/2020 09/07/2020 documented as of this encounter Additional Health Concerns Assessment Noted Time A fall risk assessment has been complete d for the patient 10/03/2019 8:29 AM EST documented as of this encounter Care Teams Bus Cleaner Relationship Specialty Start Date End Date Dora Hernandez MD [address] [facility] [place] [id number] PCP - General Family Medicine 12/24/15 documented as of this encounter
--- OUTSIDE RECORDS SUMMARY | 2024-09-12 12:45 | XMS_ITS | Encounter Summary ---
Author Organization [facility] [place] [address] Care Team Providers Care Digitizer Operator Name Role Phone Dora Hernandez MD Primary Care Provider [phone] Encounter Details Date Type Department Care Team (Latest Contact Info) Description 11/05/2020 Travel Social History Tobacco Use Types Packs/Day [...] have Coronavirus / COVID-19? No / Unsure 11/05/2020 10:11 AM EST documented as of this encounter [...] documented as of this encounter Care Teams Digitizer Operator Relationship Specialty Start Date End Date Dora Hernandez MD [address] [place] [id number] PCP - General Family Medicine 12/24/15 documented as of this encounter
--- OUTSIDE RECORDS SUMMARY | 2024-09-12 12:45 | XMS_ITS | Encounter Summary ---
Author Organization [place] [address] Care Team Providers Care Magneto Electrician Name Role Phone Dora Hernandez MD Primary Care Provider [phone] Reason for Visit * Reason Comments Medication Refill Encounter Details Date Type Department Care Team (Late st Contact Info) Description 05/07/2021 Refill SEP Gloria Leon [address] [facility] [place] [address] Dora Hernandez MD [address] [place] [address] Medication Refill Social History Tobacco [...] have Coronavirus / COVID-19? No / Unsure 04/17/2021 2:57 PM EDT documented as of this encounter Functional Status * Is the person deaf or does he/she have serious difficulty hearing? Answer Date of Assessment Author No 08/31/2019 10:12 AM Ree Haddad CCMA * Is the person blind or does he/she have serious difficulty seeing even when wearing glasses? Answer Date of Assessment Author No 08/31/2019 10:12 AM eRe Haddad CCMA * Does this person have [...] obstruction TAKE 1 CAPSULE EVERY NIGHT 90 Cap 1 05/07/2021 documented in this encounter Plan of Treatment [...] urinary obstruction TAKE 1 CAPSULE EVERY NIGHT 12/20/2020 05/07/2021 documented as of this encounter Additional Health Concerns Assessment Noted Time A fall risk assessment has been complete d for the patient 04/17/2021 3:08 PM EDT documented as of this encounter Care Teams Magneto Electrician Relationship Specialty Start Date End Date Dora Heranndez MD [address] [facility] [place] [address] PCP - General Family Medicine 12/24/15 documented as of this encounter
--- OUTSIDE RECORDS SUMMARY | 2024-09-12 12:45 | XMS_ITS | Encounter Summary ---
Author Organization [place] [address] Care Team Providers Care Hardwood Faller Name Role Phone Dora Hernandez MD Primary Care Provider [phone] Reason for Visit * Reason Comments Medication Refill Encounter Details Date Type Department Care Team (Late st Contact Info) Description 12/06/2020 Refill SEP Gloria Leon [address] [facility] [place] [address] Kim He MD [address] [place] [address] Medication Refill Social History Tobacco [...] (NEURONTIN) 100 mg Oral CapsuleIndications:P eripheral polyneuropathy TAKE TWO CAPSULES BY MOUTH TWICE A DAY 120 Cap 2 12/06/2020 documented in this encounter Miscellaneous Notes * Telephone Encounter - Dora Hernandez MD - 12/06/2020 10:44 AM EST Approved. * Telephone Encounter - Carrie Hdez CCMA - 12/06/2020 9:49 AM EST OV: 08/13/20 Fill: 09/07/20 DESTINEE- 12/06/20 MATTIE CSTA-12/01/16 BENOZ-12/01/16 SOAPP-12/01/16 documented in this encounter Plan of Treatment Not on file documented as of this encounter Goals Goal Patient Goal Type Associated Problems Recent Progress Patient-Stated? Author Blood Pressure < 140/90 Blood Pressure 110/78(2023 11:26 AM EDT) No Dye, Ember, RN [...] 2 Caps by mouth 2 times daily. 09/07/2020 12/06/2020 documented as of this encounter Additional Health Concerns Assessment Noted Time A fall risk assessment has been complete d for the patient 10/03/2019 8:29 AM EST documented as of this encounter Care Teams Hardwood Faller Relationship Specialty Start Date End Date Dora Hernandez MD [address] [place] [address] PCP - General Family Medicine 12/24/15 documented as of this encounter
--- OUTSIDE RECORDS SUMMARY | 2024-09-12 12:45 | XMS_ITS | Encounter Summary ---
Author Organization [place] [address] Care Team Providers Care Cloth Desizing Range Tender Name Role Phone Dora Hernandez MD Primary Care Provider [phone] Reason for Visit * Reason Onset Date Comments Medication Refill 06/04/2021 Encounter Details Date Type Department Care Team (Late st Contact Info) Description 06/04/2021 Refill [facility] [address] [place] [address] Dora Hernandez MD [address] [place] [address] Medication Refill Social History Tobacco [...] 2 Capsules by mouth 2 times daily. 360 Capsule 06/05/2021 documented in this encounter Miscellaneous Notes * Telephone Encounter - Petra Partida CCMA - 06/05/2021 4:55 PM EDT lvm to cancel the last refill at local pharmacy[facility] * Telephone Encounter - Dora Hernandez MD - 06/05/2021 2:14 PM EDT Pls cancel available refill at local pharmacy. I will send rx to [facility] mail order. pls remind pt need to sched appt 6 months from last visit. Thanks. * Telephone Encounter - Jennifer Garcia RMA - 06/04/2021 4:02 PM EDT They would like to see if his Gabapentin can be sent to [facility] order for 90 day supply insteadof the local pharmacy for a 30 day supply as it would be cheaper for the patient. He will sign new contract if he needs to. I pended the order you just have to change the quantity if you can do this. I told her I wasn't sure since it is a controlled medication documented in this encounter Plan of Treatment [...] Caps by mouth 2 times daily. Reorder 04/17/2021 06/04/2021 documented as of this encounter Additional Health Concerns Assessment Noted Time A fall risk assessment has been complete d for the patient 04/17/2021 3:08 PM EDT documented as of this encounter Care Teams Cloth Desizing Range Tender Relationship Specialty Start Date End Date Dora Hernandez MD [address] [place] [id number] PCP - General Family Medicine 12/24/15 documented as of this encounter
--- OUTSIDE RECORDS SUMMARY | 2024-09-12 12:45 | XMS_ITS | Encounter Summary ---
Author Organization [place] [address] Care Team Providers Care Adjunct Latin Professor Name Role Phone Droa Hernandez MD Primary Care Provider Reason for Visit * Reason Comments Medication Refill Encounter Details Date Type Department Care Team (Late st Contact Info) Description 09/01/2021 Refill [facility] [address] [facility] [place] [address] Dora Hernandez MD [address] [place] [address] Medication Refill Social History Tobacco [...] MOUTH TWICE A DAY MUST MAKE APPT 120 Capsule 09/01/2021 documented in this encounter Miscellaneous Notes * Telephone Encounter - Mignon Oswald - 09/02/2021 10:26 AM EST Lvm advising pt to call and set up medication checkup with in Sep. * Telephone Encounter - Dora Hernandez MD - 09/01/2021 4:57 PM EST Refill approved. Pt is due for appt in Sep. * Telephone Encounter - Mayuri Hernandez [facility] - 09/01/2021 4:48 PM EST LF:06/05/21 OV:04/17/21 DESTINEE: 09/01/21 CSTA-12/01/16 BENOZ-12/01/16 SOAPP-12/01/16 HCC audit completed by Estella Wu on 07/02/2021. HCC audit completed by Marisela Parker RN on 07/08/2021. documented in this encounter Plan of Treatment [...] 2 Capsules by mouth 2 times daily. 06/05/2021 09/01/2021 documented as of this encounter Additional Health Concerns Assessment Noted Time A fall risk assessment has been complete d for the patient 04/17/2021 3:08 PM EDT documented as of this encounter Care Teams Adjunct Latin Professor Relationship Specialty Start Date End Date Dora Hernandez MD [address] [place] [address] PCP - General Family Medicine 12/24/15 documented as of this encounter
--- OUTSIDE RECORDS SUMMARY | 2024-09-12 12:45 | XMS_ITS | Encounter Summary ---
Author Organization [place] [address] Care Team Providers Care Spring Coverer Name Role Phone Dora Hernandez MD Primary Care Provider [phone] Reason for Visit * Reason Comments Medication Refill Encounter Details Date Type Department Care Team (Late st Contact Info) Description 12/20/2020 Refill [facility] [address] [facility] [place] [address] Dora Hernandez MD [address] [place] [address] Medication Refill Social History Tobacco [...] 1 CAPSULE EVERY NIGHT 90 Cap 1 12/20/2020 documented in this encounter Plan of Treatment [...] urinary obstruction TAKE 1 CAPSULE EVERY NIGHT (NEEDS APPOINTMENT WITH PCP) 08/20/2020 12/20/2020 documented as of this encounter Additional Health Concerns Assessment Noted Time A fall risk assessment has been complete d for the patient 10/03/2019 8:29 AM EST documented as of this encounter Care Teams Spring Coverer Relationship Specialty Start Date End Date Dora Hernandez MD [address] [facility] [place] [address] PCP - General Family Medicine 12/24/15 documented as of this encounter
--- OUTSIDE RECORDS SUMMARY | 2024-09-12 12:45 | XMS_ITS | Encounter Summary ---
Author Organization [place] [address] Care Team Providers Care Therapeutic Dietitian Name Role Phone Dora Hernandez MD Primary Care Provider [phone] Reason for Visit * Reason Onset Date Comments Results 11/06/2020 Lab Results Encounter Details Date Type Department Care Team (Late st Contact Info) Description 11/06/2020 Telephone [facility] [place] [facility] [address] [facility] [place] [address] Dora Hernandez MD [address] [email or web address] [address] Results (Lab Results) Social History Tobacco Use Types Packs/Day Years [...] End Date amLODIPine (NORVASC) 10 mg Oral TabletIndications:E ssential hypertension Take 1 Tab by mouth daily. 90 Tab 2 11/06/2020 11/06/2020 documented in this encounter Miscellaneous Notes * Telephone Encounter - Jennifer Garcia RMA - 11/06/2020 8:28 AM EST Patient's aware and refill for amLODIPine sent to [facility] mailorder * Telephone Encounter - Petra Partida CCMA - 11/06/2020 8:18 AM EST Please see results notes. * Telephone Encounter - Connie Stahl - 11/06/2020 8:12 AM EST Test Result(s) Purpose of call: Patient seeking results Type of test: Lab Date of test: 11/05/20 Who ordered the test: PCP Where was test performed[facility] Additional Notes: Please contact pt.or documented in this encounter Plan of Treatment [...] of this encounter Visit Diagnoses Diagnosis Essential hypertension- Primary Unspecified essential hypertension documented in this encounter Discontinued Medications Medication Sig Discontinue Reason Start Date End Da te amLODIPine (NORVASC) 10 mg Oral Tablet TAKE 1 TABLET EVERY DAY Reorder 12/06/2018 11/06/2020 documented as of this encounter Additional Health Concerns Assessment Noted Time A fall risk assessment has been complete d for the patient 10/03/2019 8:29 AM EST documented as of this encounter Care Teams Therapeutic Dietitian Relationship Specialty Start Date End Date Dora Hernandez MD [address] [facility] [place] [id number] PCP - General Family Medicine 12/24/15 documented as of this encounter
--- OUTSIDE RECORDS SUMMARY | 2024-09-12 12:45 | XMS_ITS | Encounter Summary ---
Author Organization [place] [address] Care Team Providers Care Animal Care Technician Name Role Phone Dora Hernandez MD Primary Care Provider [phone] Encounter Details Date Type Department Care Team (Late st Contact Info) Description 06/04/2021 Orders Only SEP [facility] [address] [place] [address] Jennifer Garcia, A [address] [place] [address] Essential hypertension Social History Tobacco Use Types [...] (COZAAR) 50 mg Oral TabletIndications: Essential hypertension Take 1 Tablet by mouth daily. 90 Tablet 3 06/04/2021 04/06/2022 documented in this encounter Plan of Treatment [...] Da te losartan (COZAAR) 50 mg Oral TabletIndications:Essentia l hypertension Take 1 Tab by mouth daily. Reorder 05/09/2020 06/04/2021 documented as of this encounter Additional Health Concerns Assessment Noted Time A fall risk assessment has been complete d for the patient 04/17/2021 3:08 PM EDT documented as of this encounter Care Teams Animal Care Technician Relationship Specialty Start Date End Date Dora Hernandez MD [address] [place] [address] PCP - General Family Medicine 12/24/15 documented as of this encounter
--- OUTSIDE RECORDS SUMMARY | 2024-09-12 12:45 | XMS_ITS | Encounter Summary ---
Author Organization [place] [address] Care Team Providers Care Middleware Systems Architect Name Role Phone Dora Hernandez MD Primary Care Provider [phone] Reason for Visit * Reason Comments Medication Refill Encounter Details Date Type Department Care Team (Late st Contact Info) Description 09/26/2020 Refill [facility] [address] [place] [address] Dora Hernandez MD [address] [place] [address] Medication Refill Social History [...] hr TAKE 1 TABLET EVERY DAY 90 Tab 09/26/2020 12/05/2020 documented in this encounter Miscellaneous Notes * Telephone Encounter - Grace Dodd MA - 09/26/2020 4:01 PM EST [facility] 08/13/2020 metoprolol succinate ER (TOPROL-XL) 100 mg Oral Tablet Sustained Release 24 hr 90 Tab 0 12/01/2018 * Telephone Encounter - Caryn Roth CPhT - 09/26/2020 4:00 PM EST Metoprolol- Medication Refill Protocol failed due to labs or vitals. epic analyst Reason: Serum creatinine not on file within 6 months epic analyst Action: Defer to office. Patient needs labwork or vitals completed. Routed to office staff for outreach. documented in this encounter Plan of Treatment [...] 24 hr TAKE 1 TABLET EVERY DAY 12/01/2018 09/26/2020 documented as of this encounter Additional Health Concerns Assessment Noted Time A fall risk assessment has been complete d for the patient 10/03/2019 8:29 AM EST documented as of this encounter Care Teams Middleware Systems Architect Relationship Specialty Start Date End Date Dora Hernandez MD [address] [place] [address] PCP - General Family Medicine 12/24/15 documented as of this encounter
--- OUTSIDE RECORDS SUMMARY | 2024-09-12 12:45 | XMS_ITS | Encounter Summary ---
Author Organization [place] [address] Care Team Providers Care Craft Coordinator Name Role Phone Dora Hernandez MD Primary Care Provider [phone] Reason for Visit * Reason Onset Date Comments Medication Refill 11/06/2020 amLODIPine (NO RVASC) 10 mg Oral Tablet Medication Refill 11/06/2020 Encounter Details Date Type Department Care Team (Late st Contact Info) Description 11/06/2020 Refill [facility] [address] [place] [address] Dora Hernandez MD [address] [place] [address] Medication Refill (amLODIPine (NORVASC) 10 mg Oral Tablet); Medication Refill Social History Tobacco Use Types [...] by mouth daily. 90 Tab 2 11/06/2020 07/17/2021 documented in this encounter Miscellaneous Notes * Telephone Encounter - Connie Stahl Stanley - 11/06/2020 8:14 AM EST Medication Refill Who is requesting the refill: Patient Medication(s)Name/Dosage/Frequency: amLODIPine (NORVASC) 10 mg Oral Tablet 90 Tab 0 12/06/2018 Sig: TAKE 1 TABLET EVERY DAY Sent to pharmacy as: amLODIPine 10 mg tablet Cosign for Ordering: Accepted by Dora Hernandez MD on 12/06/2018 ??4:09 PM E-Prescribing Status: Receipt confirmed by pharmacy (12/06/2018 ??3:53 PM EST) Did patient contact the pharmacy first: N/A How many days left on hand: 3 Future appt date w/ prescribing provider: n/a Pharmacy & Location: [facility] [place] [address] [address] [facility] - [phone] Additional Notes: documented in this encounter Plan [...] Da te amLODIPine (NORVASC) 10 mg Oral TabletIndications:Essentia l hypertension Take 1 Tab by mouth daily. Reorder 11/06/2020 11/06/2020 documented as of this encounter Additional Health Concerns Assessment Noted Time A fall risk assessment has been complete d for the patient 10/03/2019 8:29 AM EST documented as of this encounter Care Teams Craft Coordinator Relationship Specialty Start Date End Date Dora [facility] MD [address] [facility] [address] PCP - General Family Medicine 12/24/15 documented as of this encounter
--- OUTSIDE RECORDS SUMMARY | 2024-09-12 12:45 | XMS_ITS | Encounter Summary ---
Author Organization [place] [address] Care Team Providers Care Army Senior Officer Name Role Phone Dora Hernandez MD Primary Care Provider [phone] Reason for Visit * Reason Comments Medication Refill gabapentin Encounter Details Date Type Department Care Team (Latest Contact Info) Description 04/17/2021 3:10 PM EDT Office Visit [facility] Gloria Leon [address] [facility] [place] [address] Dora Hernandez MD [address] [place] [address] Medicare annual wellness visit, subsequent (Primary Dx); Peripheral polyneuropathy; Essential hypertension; Pulmonary nodule, right; Uses hearing aid; Hyperlipidemia, unspecified hyperlipidemia type; Anxiety disorder, unspecified type Social History Tobacco [...] PM EDT documented as of this encounter Last Filed Vital Signs Vital Sign Reading Time Taken Comments Blood Pressure 146/80 04/17/2021 3:07 PM EDT Pulse 76 04/17/2021 3:07 PM EDT Temperature 36.9 ??C (98.4 ??F) 04/17/2021 3:07 PM ED T Respiratory Rate - - Oxygen Saturation 97% 04/17/2021 3:07 PM EDT Inhaled Oxygen Concentration - - Weight 120.7 kg (266 lb) 04/17/2021 3:07 PM EDT Height 190.5 cm (6' 3 ) 04/17/2021 3:07 PM EDT Body Mass Index 33.25 04/17/2021 3:07 PM EDT documented in this encounter Functional [...] by mouth 2 times daily. 120 Cap 4 04/17/2021 1 LORazepam (ATIVAN) 0.5 mg Oral TabletIndications:An xiety disorder, unspecified type Take 1 Tab by mouth every 8 hours as needed for Anxiety. 30 Tab 04/17/2021 1 documented in this encounter Progress Notes * Dora Hernandez MD - 04/17/2021 3:10 PM EDT Vitals: 04/17/21 1507 BP: 146/80 BP Location: Left arm Patient Position: Sitting Pulse: 76 Temp: 98.4 ??F (36.9 ??C) TempSrc: Temporal SpO2: 97% Weight: 266 lb (120.7 kg) Height: 6' 3 (1.905 m) SUBJECTIVE: Chief Complaint Patient presents with ??? Medication Refill gabapentin HPI: Medicare Wellness Assessment Flowsheet Version: Body mass index is 33.25 kg/m??. Mr. Garvin 80 y.o. male Subsequent Annual Medicare Wellness Assessment. As part of today's visit the components [...] provided to the patient digitally through their MyChart account or with a paper copy if the patient doesn't have an active MyChart Account. A copy of today's progress note with recommendations below is alsoavailable electronically for patients with an active [employer] account per the Federal Cures Act. TheAVS also contains additional patient education if appropriate on topics common to wellness and their plan of care. Fall Risk Assessment Has the patient had any fall with injury in the past year?: no Has the patient had 2 or more [...] the bathroom?: Yes Does the patient have handrails for all inside or outside stairs?: Yes Does the patient have stairs in the home?: (!) Yes (In office Assessment Only): Is the [...] Activities of Daily Living Assistive Device Assessment Osteoporosis Screening Assessment Has the patient had a DEXA scan in the past 2 years?: (!) No No results found for this or any previous visit. Abnormal Pains Assessment Excluding what you would consider normal aches and pains for your age and medical condition, do youhave any unusual or worrisome pains?: No PHQ Depression Screening Results Little interest or [...] Number of Words Recalled: 3 Dementia: Negative No exam data present No results found for this visit on 04/17/21. Patient Active Problem List Diagnosis ??? Hyponatremia [...] Obesity, Class I, BMI 30-34.9 ??? Hyperlipidemia Past Medical History: Diagnosis Date ??? Hyperlipidemia 04/17/2021 ??? Hypertension ??? Neuropathy ??? Tobacco use 12/23/2015 Past Surgical History: Procedure Laterality Date ??? CARDIAC CATHETERIZATION ??? DENTAL SURGERY ??? FOOT SURGERY No Known Allergies Current Outpatient Medications on File Prior to Visit Medication Sig Dispense Refill ??? amLODIPine (NORVASC) 10 mg Oral Tablet Take 1 Tab by mouth daily. 90 Tab 2 ??? aspirin (ASPIRIN LOW DOSE) 81 mg Oral Tablet, Delayed Release (E.C.) Take 1 Tab by mouth daily. ??? Cod Liver Oil Oral Oil Take by mouth daily. ??? diclofenac (VOLTAREN) 1 % Top Gel APPLY 2 GRAMS TOPICALLY 4 TIMES DAILY. 300 g 2 ??? fluticasone (FLONASE) 50 mcg/actuation Nasl [place], Suspension 2 Sprays by Nasal route daily. 1 Bottle 5 ??? losartan (COZAAR) 50 mg Oral Tablet Take 1 Tab by mouth daily. 90 Tab 3 ??? metoprolol succinate ER (TOPROL-XL) 100 mg Oral Tablet Sustained Release 24 hr Take 1 Tab by mouth daily. 90 Tab 0 ??? MULTI-VITAMIN ORAL Take by mouth daily. ??? rosuvastatin (CRESTOR) 5 mg Oral Tablet TAKE 1 TABLET EVERY NIGHT 90 Tab 2 ??? tamsulosin (FLOMAX) 0.4 mg Oral Capsule TAKE 1 CAPSULE EVERY NIGHT 90 Cap 1 ??? vit A/vit C/vit E/zinc/copper (ICAPS AREDS ORAL) Take by mouth daily. ??? naproxen sodium (ANAPROX) 220 mg Oral Tablet Take 220 mg by mouth as needed. No current facility-administered medications on file prior to visit. Social History Socioeconomic History ??? Marital status: Spouse name: None ??? Number of children: None ??? Years of education: None ??? Highest education level: None Tobacco Use ??? Smoking status: Former Smoker Packs/day: 2.00 Years: 50.00 Pack years: 100.00 Types: Pipe Quit date: 01/03/2016 Years since quittin.2 ??? Smokeless tobacco: Never Used Substance and Sexual Activity ??? Alcohol use: [...] High Dose 08/31/2019 ??? Pfizer SARS-CoV-2 Vaccine 12/13/2020, 01/03/2021 ??? Pneumococcal Conjugate Vaccine 13 Valent 2015 ??? Pneumococcal Polysaccharide 23 Valent 06/19/2019 ??? Quadrivalent Influenza High Dose 08/13/2020 ??? Td, Unspecified Formulation 07/17/2012 Health Maintenance Topic Date Due ??? Zoster (1 of 2) Never done ??? Low Dose Lung Cancer Screening 12/30/2017 ??? Wellness Exam Medicare 08/13/2021 ??? Fall Risk Assessment 04/17/2022 ??? Influenza Vaccine Completed ??? COVID-19 Vaccine Completed ??? Pneumococcal Vaccine 65+ Completed Patient Care Team: Dora Hernandez MD as PCP - General (Family Medicine) Patient Instructions AWV findings and Plan of Care: Good preventative health care is important in [...] having an Advanced Directives. This is something the patient should have on file, as well as something that we should have on file in our records. If we don't have a copy of your current Advanced Directive, please bring a copy to your next visit. If you have a power of claims attorney or surrogate, we should also have a copy on file. I encourage candid discussion with your family on your wish es in the event that you are incapacitated and unable to participate in direct medical decision making. It is important to stay up to date on recommended vaccinations including Flu, Pneumonia, and Shingles vaccine. Below are other health maintenance topics that are recommended to be closed at your earliest opportunity. You may notice that some of these were addressed in the office today. Health Maintenance Due Topic Date Due ??? Zoster (1 of 2) Never done ??? Low Dose Lung Cancer Screening 12/30/2017 In addition to recommendations to close care gaps noted above additional recommendations as part ofthe Personal Plan of Care are: Fall Risk Assessment Negative - Recommend re-assess 1 year. Functional Status/Social Determinants of Health - Stable, no issues, re-assess 1 year. Depression Screening Negative - Recommend re-assess 1 year. Dementia Screening Negative - Recommend re-assess 1 year. Additional issues addressed today: Hypertension: Home reporting of hypertension was reviewed at time of visit. Jac denies any episodes of dizziness, lightheadedness, presyncope, syncope, headache, or chest pain. Jac does not report any new symptoms of possible hypertension sequelae. The patient reports that he is not having significant issues or side effects of current medications/treatments. Neuropathy. Gabapentin is helping. C/o LE weakness for several years. No difficulty with walking. No falls. Controlled Substance Common Conditions Interval Assessment: Anxiety: Jac Garvin is here for follow up of chronic anxiety and medication management. Currently, he reports anxiety level as controlled with current treatments in place. He reports taking current medication <1 times per week. He is not having side effects from medications. He has abstained from alcohol while requiring this medication. Current limitations of anxiety symptoms include: ability to cope with day to day stress, and situations, without medication Doing well, No SE's with medication. No evidence of abuse/diversion. Pt informed and aware of medication's potential for abuse/dependence. Functional goal/goals of treatment: Abort anxiety attacks. Last took it in February when he spoke at a graduation at [facility]. Controlled Substance Prescribing Management: As part of today's visit Jac is also being followedfor controlled substance management for anxiety. Details of the progress of the monitored conditionare noted in that section of the HPI. The controlled substance flow sheet has been reviewed. Review of Systems OBJECTIVE: Physical Exam Constitutional: Appearance: He is not ill-appearing or diaphoretic. Comments: CHILKOOT despite hearing aids Cardiovascular: Rate and Rhythm: Normal rate and regular rhythm. Pulmonary: Effort: Pulmonary effort is normal. Breath sounds: Normal breath sounds. Neurological: Mental Status: He is alert and oriented to person, place, and time. Cranial Nerves: No cranial nerve deficit. Comments: Symmetric strength B LE - 5/5. No muscle atrophy. Psychiatric: Mood and Affect: Mood normal. Behavior: Behavior normal. Assessment Diagnoses and all orders for this visit: Medicare annual wellness visit, subsequent Peripheral polyneuropathy - gabapentin (NEURONTIN) 100 mg Oral Capsule; Take 2 Caps by mouth 2 times daily. Dispense: 120 Cap; Refill: 4 - DISCUSSED WITH PATIENT Essential hypertension - DISCUSSED WITH PATIENT Pulmonary nodule, right - DISCUSSED WITH PATIENT Uses hearing aid - DISCUSSED WITH PATIENT Hyperlipidemia, unspecified hyperlipidemia type - COMPREHENSIVE METABOLIC PANEL; Future - CREATINE KINASE; Future - DISCUSSED WITH PATIENT Anxiety disorder, unspecified type - LORazepam (ATIVAN) 0.5 mg Oral Tablet; Take 1 Tab by mouth every 8 hours as needed for Anxiety. Dispense: 30 Tab; Refill: 0 - DISCUSSED WITH PATIENT Discussed statin and LE weakness - chronic. No difficulty with ADLs. No issues when he plays golf once weakly. Says he had the same issues with lipitor in the past. Hold statin and call for f/u in 2 weeks, sooner prn. Malachi today is good. No UDS. He does not take ativan on a daily basis. Last rxed in 07/2020 and he took his last tab in February 2020. No red flags. Reminded to sched appt for Chest CT. F/u in 6 months and prn. * Jennifer Garcia RMA - 04/17/2021 3:10 PM EDT Venipuncture R ac #[id number] wnl documented in this encounter Miscellaneous Notes * Patient Instructions - Dora Hernandez MD - 04/17/2021 3:10 PM EDT Pls call [phone] Stop taking rosuvastatin for 2 weeks to see if this is causing your leg symptoms. documented in this encounter Plan of Treatment [...] Procedure Name Priority Date/Time Associated Diagnosis Comments CREATINE KINASE Routine 04/17/2021 3:39 PM EDT Hyperlipidemia, unspecified hyperlipidemia type COMPREHENSIVE METABOLIC PANEL Routine 04/17/2021 3:39 PM EDT Hyperlipidemia, unspecified hyperlipidemia type documented in this encounter Results * CREATINE KINASE (04/17/2021 3:39 PM EDT) CK 81 39 - 308 U/L 04/17/2021 7:15 PM EDT [facility] Blood VENOUS BLOOD / Unknown Venipuncture / Unknown 04/17/2021 3:39 PM EDT 04/17/2021 3:39 PM EDT us Dora Hernandez MD CHEMISTRY ORDERABLES Final Resu lt [facility] [address] [facility] [address] [place] [id number] * (ABNORMAL) COMPREHENSIVE METABOLIC PANEL (04/17/2021 3:39 PM EDT) Sodium 137 136 - 145 mmol/L 04/17/2021 7:15 PM EDT [facility] Potassium 4.3 3.5 - 5.0 mmol/L 04/17/2021 7:15 PM EDT [facility] Chloride 105 98 - 107 mmol/L 04/17/2021 7:15 PM EDT [facility] Total CO2 22 22 - 29 mmol/L 04/17/2021 7:15 PM EDT [facility] Anion Gap 10 7 - 16 mmol/L 04/17/2021 7:15 PM EDT [facility] Calcium 8.7(L) 8.8 - 10.4 mg/dL 04/17/2021 7:15 PM EDT [facility] Glucose Lvl 98 82 - 100 mg/dL 04/17/2021 7:15 PM EDT [facility] BUN 22 8 - 23 mg/dL 04/17/2021 7:15 PM EDT [facility] Creatinine 1.16 0.67 - 1.30 mg/dL 04/17/2021 7:15 PM EDT [facility] Albumin 4.4 3.2 - 4.6 gm/dL 04/17/2021 7:15 PM EDT [facility] Total Protein 7.1 6.4 - 8.3 gm/dL 04/17/2021 7:15 PM EDT [facility] Bili Total 0.7 0.1 - 1.4 mg/dL 04/17/2021 7:15 PM EDT [facility] ALT 34 <=41 U/L 04/17/2021 7:15 PM EDT [facility] AST 27 <=40 U/L 04/17/2021 7:15 PM EDT [facility] Alk Phos 138(H) 40 - 129 U/L 04/17/2021 7:15 PM EDT [facility] GFR Afr Am 69 >=60 mL/min/1.7 3 m2 04/17/2021 7:15 PM EDT [facility] GFR Non Afr Am 60 >=60 mL/min/1.7 3 m2 04/17/2021 7:15 PM EDT [facility] Comment: This estimated GFR was calculated [...] CHEMISTRY ORDERABLES Final Resu lt [facility] [address] [facility] [address] [place] [id number] [facility] [address] [place] [id number] documented in this encounter Visit Diagnoses Diagnosis Medicare annual wellness visit, subsequent- Primary Routine general medical examination at a [facility] facility Peripheral polyneuropathy Unspecified hereditary and idiopathic peripheral neuropathy Essential hypertension Unspecified essential hypertension Pulmonary nodule, right Solitary pulmonary nodule Uses hearing aid Hyperlipidemia, unspecified hyperlipidemia type Anxiety disorder, unspecified type documented in this encounter Discontinued Medications Medication Sig Discontinue Reason Start Date End Da te LORazepam (ATIVAN) 0.5 mg Oral TabletIndications:Anxiety disorder, unspecified type Take 1 Tab by mouth every 8 hours as needed for Anxiety. Reorder 08/13/2020 04/17/2021 gabapentin (NEURONTIN) 100 mg Oral CapsuleIndications:Periphe ral polyneuropathy Take 2 Caps by mouth 2 times daily. Reorder 04/10/2021 04/17/2021 documented as of this encounter Orders Nursing Count Last Ordered Date First Orde red Date DISCUSSED WITH PATIENT 1 04/17/2021 documented in this encounter Additional Health Concerns Assessment Noted Time A fall risk assessment has been complete d for the patient 04/17/2021 3:08 PM EDT documented as of this encounter Care Teams Army Senior Officer Relationship Specialty Start Date End Date Dora Hernandez MD [address] [facility] [place] [address] [address] PCP - General Family Medicine 12/24/15 documented as of this encounter
--- OUTSIDE RECORDS SUMMARY | 2024-09-12 12:45 | XMS_ITS | Encounter Summary ---
Author Organization [place] [address] Care Team Providers Care Prick Stitcher Name Role Phone Dora Hernandez MD Primary Care Provider [phone] Reason for Visit * Reason Comments Medication Refill Encounter Details Date Type Department Care Team (Late st Contact Info) Description 05/23/2021 Refill SEP Gloria Leon [address] [facility] [place] [address] Dora Hernandez MD [address] [place] [address] Medication Refill Social History Tobacco [...] Author No 08/31/2019 10:12 AM Ree Haddad CCMMalcolm * Does this person have difficulty dressing or bathing? Answer Date of Assessment Author No 08/31/2019 10:12 AM CODY Johnsonter Ree Christensen VARGHESE * Because of a physical, mental or emotional condition, does this person have difficulty doing errands alone such as visiting a doctor's office or shopping? Answer Date of Assessment Author No 08/31/2019 10:12 AM Chilo Haddadcaridad Christensen CCMMalcolm documented as of this encounter Mental Status * Because of a physical, mental or emotional condition, does this person have serious difficulty concentrating, remembering or making decisions? Answer Entry Date Author No 08/31/2019 10:12 AM CODY Ree Stout CCMMalcolm documented in this encounter Miscellaneous Notes * Telephone Encounter - Amalia Hoskins CPhT - 05/26/2021 8:49 AM EDT amLODIPine (NORVASC) 10 mg Medication refill requested too soon. Refill request denied. Refills sent on 11/06/20 for 9 months. balance staff inspector contacted pharmacy and verified that refills are on file. Patient notified via [employer] (if MyChart active).last dispensed 90 days on 03/27/21 documented in this encounter Plan of Treatment [...] documented as of this encounter Care Teams Prick Stitcher Relationship Specialty Start Date End Date Dora Hernandez MD [address] [place] [id number] PCP - General Family Medicine 12/24/15 documented as of this encounter
--- OUTSIDE RECORDS SUMMARY | 2024-09-12 12:45 | XMS_ITS | Encounter Summary ---
Author Organization [place] [address] Care Team Providers Care Wet Process Miller Head Name Role Phone Dora Hernandez MD Primary Care Provider [phone] Reason for Visit * Reason Comments Medication Refill Encounter Details Date Type Department Care Team (Late st Contact Info) Description 02/05/2021 Refill SEP [facility] [address] [facility] [place] [address] Dora Hernandez MD [address] [place] [address] Medication Refill Social History Tobacco [...] encounter Miscellaneous Notes * Telephone Encounter - Zoila Canela CPhT - 02/05/2021 4:13 PM EDT Losartan- Medication refill requested too soon. Refill request denied. Refills sent on 05/09/20 #90 w 3 refills Jesse contacted pharmacy and verified that refills are on file. Patient notified via [employer] (if MyChart active). documented in this encounter [...] documented as of this encounter Care Teams Wet Process Miller Head Relationship Specialty Start Date End Date Dora Hernandez MD [address] [facility] [address] [place] [address] PCP - General Family Medicine 12/24/15 documented as of this encounter
--- OUTSIDE RECORDS SUMMARY | 2024-09-12 12:45 | XMS_ITS | Encounter Summary ---
Author Organization [place] [address] Care Team Providers Care Senior Quality Assurance Engineer Name Role Phone Dora Hernandez MD Primary Care Provider [phone] Reason for Visit * Reason Onset Date Comments Medication Refill 07/17/2021 Encounter Details Date Type Department Care Team (Late st Contact Info) Description 07/17/2021 Refill SEP Gloria Leon [address] [place] [address] Dora Hernandez MD [address] [place] [address] Medication Refill Social History Tobacco [...] 1 Tablet by mouth daily. 90 Tablet 2 07/17/2021 02/27/2022 documented in this encounter Miscellaneous Notes * Telephone Encounter - Jennifer Garcia RMA - 07/17/2021 2:17 PM EDT Needs refill sent to [facility] pharmacy for Amlodipine 10mg. Refill e-scribed documented in this encounter Plan of Treatment [...] 1 Tab by mouth daily. Reorder 11/06/2020 07/17/2021 documented as of this encounter Additional Health Concerns Assessment Noted Time A fall risk assessment has been complete d for the patient 04/17/2021 3:08 PM EDT documented as of this encounter Care Teams Senior Quality Assurance Engineer Relationship Specialty Start Date End Date Dora Hernandez MD [address] [place] [address] PCP - General Family Medicine 12/24/15 documented as of this encounter
--- OUTSIDE RECORDS SUMMARY | 2024-09-12 12:45 | XMS_ITS | Encounter Summary ---
Author Organization [place] [address] Care Team Providers Care Borough Coordinator Name Role Phone Dora Hernandez MD Primary Care Provider [phone] Encounter Details Date Type Department Care Team (Late st Contact Info) Description 01/03/2021 1:30 PM EST Immunization COVID Vaccine Location [address] [place] [address] Immunization/Injectio n Social History Tobacco Use Types [...] Diagnoses Not on filedocumented in this encounter Orders Immunization/Injection Count Last Ordered Date First Ordered Date PFIZER SARS-COV-2 VACCINE 1 01/03/2021 documented in this encounter Additional Health Concerns Assessment Noted Time A fall risk assessment has been complete d for the patient 10/03/2019 8:29 AM EST documented as of this encounter Care Teams Borough Coordinator Relationship Specialty Start Date End Date Dora Hernandez MD [address] [facility] [place] [address] PCP - General Family Medicine 12/24/15 documented as of this encounter
--- OUTSIDE RECORDS SUMMARY | 2024-09-12 12:45 | XMS_ITS | Encounter Summary ---
Author Organization [place] [address] Care Team Providers Care Route Delivery Supervisor Name Role Phone Dora Hernandez MD Primary Care Provider [phone] Reason for Visit * Reason Comments Medication Refill Encounter Details Date Type Department Care Team (Late st Contact Info) Description 07/07/2021 Refill SEP Gloria Leon [address] [facility] [place] [address] Dora Hernandez MD [address] [place] [address] Medication Refill Social History Tobacco [...] TAKE 1 TABLET EVERY DAY 90 Tablet 07/08/2021 09/04/2021 documented in this encounter Miscellaneous Notes * Telephone Encounter - Ravi Odonnell CPhT - 07/08/2021 1:16 PM EDT Metoprolol- Medication Refill Protocol passed. Jesse Action: Approved [...] 24 hr TAKE 1 TABLET EVERY DAY 04/21/2021 07/08/2021 documented as of this encounter Additional Health Concerns Assessment Noted Time A fall risk assessment has been complete d for the patient 04/17/2021 3:08 PM EDT documented as of this encounter Care Teams Route Delivery Supervisor Relationship Specialty Start Date End Date Dora Hernandez MD [address] [place] [address] PCP - General Family Medicine 12/24/15 documented as of this encounter
--- OUTSIDE RECORDS SUMMARY | 2024-09-12 12:45 | XMS_ITS | Encounter Summary ---
Author Organization [place] [address] Care Team Providers Care Svp Research And Strategic Analysis Name Role Phone Dora Hernandez MD Primary Care Provider [phone] Reason for Visit * Reason Comments Medication Refill Encounter Details Date Type Department Care Team (Late st Contact Info) Description 01/22/2021 Refill SEP Gloria [facility] [address] [facility] [place] [address] Dora Hernandez MD [address] [place] [address] Medication Refill Social History Tobacco [...] Refills Last Filled Start Date End Date rosuvastatin (CRESTOR) 5 mg Oral TabletIndications: Hypercholesteremia TAKE 1 TABLET EVERY NIGHT 90 Tab 2 01/23/2021 09/12/2021 documented in this encounter Miscellaneous Notes * Telephone Encounter - Amparo Loza CPhT - 01/23/2021 10:43 AM EDT rosuvastatin Medication refill request deferred to office staff. Jesse Reason: Patient has mail order that does not allow for a 30-day supply. Patient is due for appointment within the next 3 months with no appointment scheduled. documented in this encounter Plan of Treatment [...] as of this encounter Visit Diagnoses Diagnosis Hypercholesteremia Pure hypercholesterolemia documented in this encounter Discontinued Medications Medication Sig Discontinue Reason Start Date End Da te rosuvastatin (CRESTOR) 5 mg Oral TabletIndications:Hyperch olesteremia Take 1 Tab by mouth nightly. 05/09/2020 01/23/2021 documented as of this encounter Additional Health Concerns Assessment Noted Time A fall risk assessment has been complete d for the patient 10/03/2019 8:29 AM EST documented as of this encounter Care Teams Svp Research And Strategic Analysis Relationship Specialty Start Date End Date Dora Hernandez MD [address] [facility] [place] [address] PCP - General Family Medicine 12/24/15 documented as of this encounter
--- OUTSIDE RECORDS SUMMARY | 2024-09-12 12:45 | XMS_ITS | Encounter Summary ---
Author Organization [place] [address] Care Team Providers Care Bed Bug Exterminator Name Role Phone Dora Hernandez MD Primary Care Provider [phone] Reason for Visit * Reason Comments Medication Refill Encounter Details Date Type Department Care Team (Late st Contact Info) Description 09/07/2020 Refill SEP Gloria [facility] [address] [place] [address] Dora Hernandez MD [address] [place] [address] Medication Refill Social History Tobacco [...] documented as of this encounter Care Teams Bed Bug Exterminator Relationship Specialty Start Date End Date Dora Hernandez MD [address] [facility] [place] [address] PCP - General Family Medicine 12/24/15 documented as of this encounter
--- OUTSIDE RECORDS SUMMARY | 2024-09-12 12:45 | XMS_ITS | Encounter Summary ---
Author Organization [place] [address] Care Team Providers Care Product Owner Name Role Phone Dora Hernandez MD Primary Care Provider [phone] Reason for Visit * Reason Comments Medication Refill Encounter Details Date Type Department Care Team (Late st Contact Info) Description 03/07/2021 Refill SEP Gloria [facility] [address] [facility] [place] [address] Dora Hernandez MD [address] [place] [address] Medication Refill Social History Tobacco [...] End Date gabapentin (NEURONTIN) 100 mg Oral CapsuleIndications: Peripheral polyneuropathy Take 2 Caps by mouth 2 times daily. Must make an appointment 120 Cap 03/07/2021 04/10/20 documented in this encounter Miscellaneous Notes * Telephone Encounter - Petra Partida CCMA - 03/07/2021 3:41 PM EDT DESTINEE: 03/07/21 CSTA-12/01/16 BENOZ-12/01/16 SOAPP-12/01/16 CYNDIE:08/13/20 NOV: n/a LAST FILLED: 12/06/20 #120 +2 refills documented in this encounter Plan of [...] TWO CAPSULES BY MOUTH TWICE A DAY 12/06/2020 03/07/2021 documented as of this encounter Additional Health Concerns Assessment Noted Time A fall risk assessment has been complete d for the patient 10/03/2019 8:29 AM EST documented as of this encounter Care Teams Product Owner Relationship Specialty Start Date End Date Dora Hernandez MD [address] [facility] [place] [address] PCP - General Family Medicine 12/24/15 documented as of this encounter
--- OUTSIDE RECORDS SUMMARY | 2024-09-12 12:45 | XMS_ITS | Encounter Summary ---
Author Organization [place] [address] Care Team Providers Care Staff Technologist Name Role Phone Shannon Hernandez MD Primary Care Provider [phone] Reason for Visit * Reason Comments Medication Refill Encounter Details Date Type Department Care Team (Late st Contact Info) Description 08/19/2020 Refill SEP Gloria [facility] [address] [place] [address] Shannon Hernandez MD [address] [place] [address] Medication Refill Social History Tobacco [...] CAPSULE EVERY NIGHT (NEEDS APPOINTMENT WITH PCP) 90 Cap 1 08/20/2020 1 tamsulosin (FLOMAX) 0.4 mg Oral CapsuleIndications :BPH without urinary obstruction TAKE 1 CAPSULE EVERY NIGHT (NEEDS APPOINTMENT WITH PCP) 30 Cap 08/20/2020 0 documented in this encounter Miscellaneous Notes * Addendum Note - Shannon Hernandez MD - 08/20/2020 9:55 AM EDTAddended by: SHANNON HERNANDEZ on: 08/20/2020 09:55 AM Modules accepted: Orders * Telephone Encounter - Aurelia Saldana RMA - 08/20/2020 9:48 AM EDT approved documented in this encounter Plan of Treatment [...] urinary obstruction TAKE 1 CAPSULE EVERY NIGHT 07/18/2020 08/20/2020 tamsulosin (FLOMAX) 0.4 mg Oral CapsuleIndications:BPH without urinary obstruction TAKE 1 CAPSULE EVERY NIGHT (NEEDS APPOINTMENT WITH PCP) Reorder 08/20/2020 08/20/2020 documented as of this encounter Additional Health Concerns Assessment Noted Time A fall risk assessment has been complete d for the patient 10/03/2019 8:29 AM EST documented as of this encounter Care Teams Staff Technologist Relationship Specialty Start Date End Date Shannon Hernandez MD [address] [facility] [place] [phone] PCP - General Family Medicine 12/24/15 documented as of this encounter
--- OUTSIDE RECORDS SUMMARY | 2024-09-12 12:45 | XMS_ITS | Encounter Summary ---
Author Organization [place] [address] Care Team Providers Care Mica Miner Name Role Phone Dora Hernandez MD Primary Care Provider Reason for Visit * Reason Comments Medication Refill Encounter Details Date Type Department Care Team (Late st Contact Info) Description 12/04/2020 Refill SEP Gloria [facility] [address] [facility] [place] [address] Dora Hernandez MD [address] [place] [address] Medication Refill Social History Tobacco [...] TAKE 1 TABLET EVERY DAY 90 Tab 12/05/2020 02/20/2021 documented in this encounter Miscellaneous Notes * Telephone Encounter - Jeanna Vazquez CPhT - 12/05/2020 11:12 AM EST Metoprolol- Medication Refill Protocol passed. Jesse Action: Defer to office. Patient has mail order that does not allow for 30- day supply. Protocol only allows for 30 days with 1 refill to be sent. documented in this encounter Plan of Treatment [...] 24 hr TAKE 1 TABLET EVERY DAY 09/26/2020 12/05/2020 documented as of this encounter Additional Health Concerns Assessment Noted Time A fall risk assessment has been complete d for the patient 10/03/2019 8:29 AM EST documented as of this encounter Care Teams Mica Miner Relationship Specialty Start Date End Date Dora Hernandez MD [address] [place] [address] PCP - General Family Medicine 12/24/15 documented as of this encounter
--- OUTSIDE RECORDS SUMMARY | 2024-09-12 12:45 | XMS_ITS | Encounter Summary ---
Author Organization [place] [address] Care Team Providers Care Skidway Man Name Role Phone Dora Hernandez MD Primary Care Provider [phone] Reason for Visit * Reason Comments Labs Only Encounter Details Date Type Department Care Team (Latest Contact Info) Description 11/05/2020 10:15 AM EST Clinical Support [facility] Gloria [facility] [address] [place] [address] Radha Jennifer Luis Armando, A [address] [place] [address] Essential hypertension; Hypercholesteremia Social History Tobacco Use Types Packs/Day Years [...] Progress Notes * Jennifer Garcia RMA - 11/05/2020 10:15 AM EST Venipuncture R ac #21g wnl [...] Associated Diagnosis Comments LIPID PANEL REFLEX Routine 11/05/2020 10 :24 AM EST Essential hypertension Hypercholesteremia CBC Routine 11/05/2020 10:24 AM EST Essential hypertension COMPREHENSIVE METABOLIC PANEL Routine 11/05/2020 10:24 AM EST Essential hypertension Hypercholesteremia documented in this encounter Results * LIPID PANEL REFLEX (11/05/2020 10:24 AM EST) Cholesterol 163 <200 mg/dL 11/05/2020 3:11 PM EST [facility] Comment: < 200 ?Desirable 200 - 239 ? Borderline High >= 240 ?High Triglyceride 72 <150 mg/dL 11/05/2020 3:11 PM EST [facility] Comment: < 150 ? Normal 150 - 199 ?Borderline High 200 - 499 ?High ??>= 500 ? Very High HDL 62 >=40 mg/dL 11/05/2020 3:11 PM EST [facility] Comment: ??> 60 ?Optimal 40 - 60 ?Acceptable ?? < 40 ?Low LDL Calculated 87 <100 mg/dL 11/05/2020 3:11 PM EST [facility] Non-HDL-C Calculated 101 <=129 mg/dL 11/05/2020 3:11 PM EST [facility] Comment: <130 ?Desirable 130-159 Above Desirable 160-189 Borderline High 190-219 High >= 220 ??Very High Fasting Specimen? Yes None 021 3:11 PM EST [facility] Blood VENOUS BLOOD / Unknown Venipuncture / Unknown 11/05/2020 10:24 AM EST 11/05/2020 10:24 AM EST us Dora Hernandez MD CHEMISTRY ORDERABLES Final Resu lt [facility] 1 [facility] , [place] [address] * (ABNORMAL) COMPREHENSIVE METABOLIC PANEL (11/05/2020 10:24 AM EST) Sodium 139 136 - 145 mmol/L 11/05/2020 3:11 PM EST [facility] Potassium 4.3 3.5 - 5.0 mmol/L 11/05/2020 3:11 PM EST [facility] Chloride 107 98 - 107 mmol/L 11/05/2020 3:11 PM EST [facility] Total CO2 22 22 - 29 mmol/L 11/05/2020 3:11 PM EST [facility] Anion Gap 10 7 - 16 mmol/L 11/05/2020 3:11 PM EST [facility] Calcium 9.0 8.8 - 10.4 mg/dL 11/05/2020 3:11 PM EST [facility] Glucose Lvl 108(H) 82 - 100 mg/dL 11/05/2020 3:11 PM EST [facility] BUN 22 8 - 23 mg/dL 11/05/2020 3:11 PM EST [facility] Creatinine 1.20 0.67 - 1.30 mg/dL 11/05/2020 3:11 PM EST [facility] Albumin 4.3 3.2 - 4.6 gm/dL 11/05/2020 3:11 PM EST [facility] Total Protein 7.0 6.4 - 8.3 gm/dL 11/05/2020 3:11 PM EST [facility] Bili Total 0.8 0.1 - 1.4 mg/dL 11/05/2020 3:11 PM EST [facility] ALT 26 <=41 U/L 11/05/2020 3:11 PM EST [facility] AST 22 <=40 U/L 11/05/2020 3:11 PM EST [facility] Alk Phos 80 40 - 129 U/L 11/05/2020 3:11 PM EST [facility] GFR Afr Am 67 >=60 mL/min/1.7 3 m2 11/05/2020 3:11 PM EST [facility] GFR Non Afr Am 58(L) >=60 mL/min/1.7 3 m2 11/05/2020 3:11 PM EST [facility] Comment: This estimated GFR was calculated [...] VENOUS BLOOD / Unknown Venipuncture / Unknown 11/05/2020 10:24 AM EST 11/05/2020 10:24 AM EST us Dora Hernandez MD CHEMISTRY ORDERABLES Final Resu lt [facility] 1 [facility], [address] [place] [id number] [facility] [address] [place] [address] * (ABNORMAL) CBC (11/05/2020 10:24 AM EST) WBC 7.9 3.7 - 10.3 x10(3)/mcL 11/05/2020 3:49 PM EST [facility] RBC 4.48(L) 4.60 - 6.10 x10(6)/mcL 11/05/2020 3:49 PM EST [facility] Hgb 14.0 13.7 - 17.5 g/dL 11/05/2020 3:49 PM EST [facility] Hct 42.7 40.0 - 51.0 % 11/05/2020 3:49 PM EST [facility] MCV 95.3 80.0 - 100.0 fL 11/05/2020 3:49 PM EST [facility] MCH 31.3 26.0 - 34.0 pg 11/05/2020 3:49 PM EST [facility] MCHC 32.8 30.7 - 35.5 g/dL 11/05/2020 3:49 PM EST [facility] RDW 14.6 <=14.9 % 11/05/2020 3:49 PM EST [facility] Platelet 299 155 - 369 x10(3)/mcL 11/05/2020 3:49 PM EST [facility] MPV 10.9 8.8 - 12.5 fL 11/05/2020 3:49 PM EST [facility] Blood VENOUS BLOOD / Unknown Venipuncture / Unknown 11/05/2020 10:24 AM EST 11/05/2020 10:24 AM EST us Dora Hernandez MD HEMATOLOGY ORDERABLES Final Res ult [facility] , [place] [address] documented in this encounter Visit Diagnoses Diagnosis Essential hypertension Unspecified essential hypertension Hypercholesteremia Pure hypercholesterolemia documented in this encounter Additional Health Concerns Assessment Noted Time A fall risk assessment has been complete d for the patient 10/03/2019 8:29 AM EST documented as of this encounter Care Teams Skidway Man Relationship Specialty Start Date End Date Dora Hernandez MD [address] [facility] [place] [address] PCP - General Family Medicine 12/24/15 documented as of this encounter
--- OUTSIDE RECORDS SUMMARY | 2024-09-12 12:45 | XMS_ITS | Encounter Summary ---
Author Organization [place] [address] Care Team Providers Care Leather Goods Sales Representative Name Role Phone Dora Hernandez MD Primary Care Provider [phone] Reason for Visit * Reason Onset Date Comments Other 06/03/2021 request a call f edilberto Rodriguez Encounter Details Date Type Department Care Team (Late Contact Info) Description 06/03/2021 Telephone [facility] [place] [facility] [address] [employer] [facility] [place] [address] Dora Hernandez MD [address] [employer] [facility] [place] [address] Other (request a call from Jennifer) Social History Tobacco Use Types Packs/Day Years [...] Encounter - Jennifer Garcia RMA - 06/04/2021 11:05 AM EDT Noted. * Telephone Encounter - Cee Gleason - 06/04/2021 11:00 AM EDT Kristyn calling back, unable to connect, states she will try calling back again after 3. * Telephone Encounter - Jennifer Garcia RMA - 06/04/2021 10:41 AM EDT Attempted to return patient's call. Left another vm for her to return my call. * Telephone Encounter - Lamar Melendez - 06/04/2021 9:56 AM EDT Pt called back but you were unavailable. Please call back at your earliest convenience at [phone]. Thanks! * Telephone Encounter - Jennifer Garcia RMA - 06/03/2021 4:13 PM EDT Left patient a message I will try again I the morning. * Telephone Encounter - Reyes Melo COA - 06/03/2021 3:47 PM EDT Pt spouse request a call from Jennifer. Pt spouse didn't give other details due to message not alwaysgetting relayed properly. Please advise documented in this encounter Plan [...] documented as of this encounter Care Teams Leather Goods Sales Representative Relationship Specialty Start Date End Date Dora Hernandez MD [address] [facility] [place] [address] PCP - General Family Medicine 12/24/15 documented as of this encounter
--- OUTSIDE RECORDS SUMMARY | 2024-09-12 12:45 | XMS_ITS | Encounter Summary ---
Author Organization [place] [address] Care Team Providers Care Cell Room Supervisor Name Role Phone Dora Hernandez MD Primary Care Provider [phone] Encounter Details Date Type Department Care Team (Late st Contact Info) Description 12/13/2020 12:15 PM EST Immunization COVID Vaccine Location [address] [place] [address] Immunization/Injectio n Social History Tobacco Use Types [...] First Ordered Date PFIZER SARS-COV-2 VACCINE 1 12/13/2020 documented in this encounter Additional Health Concerns Assessment Noted Time A fall risk assessment has been complete d for the patient 10/03/2019 8:29 AM EST documented as of this encounter Care Teams Cell Room Supervisor Relationship Specialty Start Date End Date Dora Hernandez MD [address] [facility] [place] [address] PCP - General Family Medicine 12/24/15 documented as of this encounter
--- OUTSIDE RECORDS SUMMARY | 2024-09-12 12:45 | XMS_ITS | Encounter Summary ---
Author Organization [facility] [place] [address] Care Team Providers Care Director Special Education Name Role Phone Dora Hernandez MD Primary Care Provider [phone] Encounter Details Date Type Department Care Team (Latest Contact Info) Description 04/17/2021 Travel Social History Tobacco Use Types Packs/Day [...] Assessment Author No 08/31/2019 10:12 AM Ree Hdadad CCMA * Is the person blind or [...] documented as of this encounter Care Teams Director Special Education Relationship Specialty Start Date End Date Dora Hernandez MD [address] [place] [address] PCP - General Family Medicine 12/24/15 documented as of this encounter
--- OUTSIDE RECORDS SUMMARY | 2024-09-12 12:45 | XMS_ITS | Encounter Summary ---
Author Organization [place] [address] Care Team Providers Care Make Up Arranger Name Role Phone Dora Hernandez MD Primary Care Provider [phone] Reason for Visit * Reason Comments Medication Refill Encounter Details Date Type Department Care Team (Late st Contact Info) Description 04/19/2021 Refill SEP Gloria Leon [address] [facility] [place] [address] Dora Hernandez MD [address] [place] [address] Medication Refill Social History Tobacco [...] TAKE 1 TABLET EVERY DAY 90 Tab 04/21/2021 07/08/2021 documented in this encounter Miscellaneous Notes * Telephone Encounter - Katy Vasquez CPhT - 04/21/2021 7:44 AM EDT Metoprolol- Medication Refill Protocol passed. [...] hr Take 1 Tab by mouth daily. 02/20/2021 04/21/2021 documented as of this encounter Additional Health Concerns Assessment Noted Time A fall risk assessment has been complete d for the patient 04/17/2021 3:08 PM EDT documented as of this encounter Care Teams Make Up Arranger Relationship Specialty Start Date End Date Dora Hernandez MD [address] [place] [address] PCP - General Family Medicine 12/24/15 documented as of this encounter
--- OUTSIDE RECORDS SUMMARY | 2024-09-12 12:45 | XMS_ITS | Encounter Summary ---
Author Organization [place] [address] Care Team Providers Care Comedian Name Role Phone Dora Hernandez MD Primary Care Provider [phone] Reason for Visit * Reason Onset Date Comments Medication Refill 04/10/2021 gabapentin (NE URONTIN) 100 mg Oral [id number] Cap03/07/2021 Encounter Details Date Type Department Care Team (Late st Contact Info) Description 04/10/2021 Refill SEP Gloria [facility] [address] [place] [address] Dora Hernandez MD [address] [place] [address] Medication Refill (gabapentin (NEURONTIN) 100 mg Oral [id number] Cap03/07/2021) Social History Tobacco Use Types Packs/Day Years [...] by mouth 2 times daily. 120 Cap 04/10/2021 documented in this encounter Miscellaneous Notes * Telephone Encounter - Petra Partida CCMA - 04/10/2021 1:41 PM EDT DESTINEE: 03/07/21 CSTA-12/01/16 SNATINO-12/01/16 SOAPP-12/01/16 CYNDIE: 08/13/2020 NOV: 04/17/21 LAST FILLED: 03/07/21 #120 + 0 refills * Telephone Encounter - Marlen Sampson - 04/10/2021 1:04 PM EDT Medication Refill Who is requesting the refill: Other pt's Medication(s)Name/Dosage/Frequency: gabapentin (NEURONTIN) 100 mg Oral Capsule 120 Cap 0 03/07/2021 Sig - Route: Take 2 Caps by mouth 2 times daily. Must make an appointment - Oral Did patient contact the pharmacy first: No How many days left on hand: 3 Future appt date w/ prescribing provider: 04/17 Pharmacy & Location: [address] [address] [facility] [phone] Additional Notes: documented in this encounter Plan [...] Da te gabapentin (NEURONTIN) 100 mg Oral CapsuleIndications:Perip heral polyneuropathy Take 2 Caps by mouth 2 times daily. Must make an appointment Reorder 03/07/2021 04/10/2021 documented as of this encounter Additional Health Concerns Assessment Noted Time A fall risk assessment has been complete d for the patient 10/03/2019 8:29 AM EST documented as of this encounter Care Teams Comedian Relationship Specialty Start Date End Date Dora Hernandez MD [address] [facility] [place] [phone] PCP - General Family Medicine 12/24/15 documented as of this encounter
--- OUTSIDE RECORDS SUMMARY | 2024-09-12 12:46 | XMS_ITS | Encounter Summary ---
Author Organization [facility] [place] [address] Care Team Providers Care Exercise Scientist Name Role Phone Dora Hernandez MD Primary Care Provider [phone] Encounter Details Date Type Department Care Team (Latest Contact Info) Description 07/24/2020 Travel Social History Tobacco Use Types Packs/Day [...] have Coronavirus / COVID-19? No / Unsure 07/24/2020 3:25 PM EDT documented as of this encounter [...] documented as of this encounter Care Teams Exercise Scientist Relationship Specialty Start Date End Date Dora Hernandez MD [address] [place] [phone] PCP - General Family Medicine 12/24/15 documented as of this encounter
--- OUTSIDE RECORDS SUMMARY | 2024-09-12 12:46 | XMS_ITS | Encounter Summary ---
Author Organization [place] [address] Care Team Providers Care Water Pump Operator Name Role Phone Dora Hernandez MD Primary Care Provider [phone] Reason for Visit * Reason Onset Date Comments Medication Refill 05/09/2020 Encounter Details Date Type Department Care Team (Late st Contact Info) Description 05/09/2020 Refill SEP Gloria Leon [address] [place] [address] Dora Hernandez MD [address] [place] [address] Medication Refill Social History Tobacco [...] End Date losartan (COZAAR) 50 mg Oral TabletIndications:E ssential hypertension Take 1 Tab by mouth daily. 90 Tab 3 05/09/2020 06/04/2021 documented in this encounter Miscellaneous Notes * Telephone Encounter - Connie Stahl - 05/09/2020 11:38 AM EDT Medication Refill Who is requesting the refill: Other Pt Medication(s)Name/Dosage/Frequency: losartan (COZAAR) 50 mg Oral Tablet 90 Tab 3 06/19/2019 Sig - Route: Take 1 Tab by mouth daily. - Oral Sent to pharmacy as: losartan 50 mg tablet E-Prescribing Status: Receipt confirmed by pharmacy (06/19/2019 11:19 AM EDT) Did patient contact the pharmacy first: N/A How many days left on hand: 25 Future appt date w/ prescribing provider: n/a Pharmacy & Location: [facility] [place] [address] [facility] - [phone] Additional Notes: documented in this encounter Plan [...] Take 1 Tab by mouth daily. Reorder 06/19/2019 05/09/2020 documented as of this encounter Additional Health Concerns Assessment Noted Time A fall risk assessment has been complete d for the patient 10/03/2019 8:29 AM EST documented as of this encounter Care Teams Water Pump Operator Relationship Specialty Start Date End Date Dora Hernandez MD [address] [facility] [place] [phone] PCP - General Family Medicine 12/24/15 documented as of this encounter
--- OUTSIDE RECORDS SUMMARY | 2024-09-12 12:46 | XMS_ITS | Encounter Summary ---
Author Organization [place] [address] Care Team Providers Care Travel Insurance Agent Name Role Phone Dora Hernandez MD Primary Care Provider [phone] Reason for Visit * Reason Onset Date Comments Central Patient Navigator Outreach 08/29/2019 Encounter Details Date Type Department Care Team (Late st Contact Info) Description 08/29/2019 Patient Outreach [facility] [address] [place], [place] [id number] Dora Hernandez MD [address] [facility] [place] [address] [place] [address] Central Patient Navigator Outreach Social History Tobacco Use Types Packs/Day Years [...] on file documented as of this encounter Progress Notes * Zari Zafar - 08/30/2019 1:43 PM EST Patient Outreach: Pre-Visit Questionnaires Attempt Count: 2nd Care Gaps Addressed campaign consultant: Medicare Questionnaire Outcome: Left message to return call at * Joselin Morrow - 08/29/2019 11:11 AM EST Patient Outreach: Pre-Visit Questionnaires Attempt Count: 1st Care Gaps Addressed campaign consultant: Medicare Questionnaire and Flu Vaccine Outcome: Left message to return call at also has an appt on the same day for AWV Exam. LM on vm to have them both call back to complete the AWV Questionnaire. documented in this encounter Plan of Treatment [...] has been complete d for the patient 12/01/2016 9:10 AM EST documented as of this encounter Care Teams Travel Insurance Agent Relationship Specialty Start Date End Date Dora Hernandez MD [address] [facility] [place] [address] PCP - General Family Medicine 12/24/15 documented as of this encounter
--- OUTSIDE RECORDS SUMMARY | 2024-09-12 12:46 | XMS_ITS | Encounter Summary ---
Author Organization [place] [address] Care Team Providers Care Die Presser Name Role Phone Dora Hernandez MD Primary Care Provider Reason for Referral * Consultation (Routine) - Closed Specialty Diagnoses / Procedures Referred By Contac t Referred To Contact General Surgery Diagnoses Mass of skin of right shoulder Lipoma of back Dora Hernandez MD [address] [facility] [place] [address] Phone: tel: fax: Modesto Caputo MD Phone: tel: fax: Referral ID Status Reason Start Date Expiration Date Visits Re quested Visits Authorized [id number] Closed 06/19/2019 06/18/2020 99 99 * MRI/CAT Scan (Routine) - Closed Specialty Diagnoses / Procedures Referred By Contac t Referred To Contact Radiology Diagnoses Pulmonary nodule, right Procedures CT CHEST W CONTRAST Dora Hernandez MD [address] [facility] [place] [address] Phone: tel: fax: Referral ID Status Reason Start Date Expiration Date Visits Re quested Visits Authorized [id number] Closed 06/19/2019 06/18/2020 1 1 * Consultation (Routine) - Closed Specialty Diagnoses / Procedures Referred By Hal thompson Referred To Contact Podiatry Diagnoses Paronychia of great toe of right foot Dora Hernandez MD [address] [place] [address] Phone: tel: fax: Salomon Cristhian Malcolm, DPM [address] [facility] [address] [place] [address] Phone: tel: fax: Referral ID Status Reason Start Date Expiration Date V isits Requested Visits Authorized [id number] Closed Specialty Services Required 06/19/2019 06/18/2020 99 99 Reason for Visit * Reason Comments Nail Problem Pt c/o his toe nail' s falling off and infection-Pt has been taking Dicloxacillin 500 mg from 11/09/2014 for this issue Encounter Details Date Type Department Care Team (Latest Contact Info) Description 06/19/2019 11:00 AM EDT Office Visit [facility] [address] [place] [address] Dora Hernandez MD [address] [place] [address] Paronychia of great toe of right foot (Primary Dx); Essential hypertension; Pulmonary nodule, right; Mass of skin of right shoulder; Lipoma of back; Need for pneumococcal vaccination; Situational anxiety; Anxiety disorder, unspecified type; Primary osteoarthritis of both knees Social History Tobacco Use Types Packs/Day Years Used Date Smoking Tobacco: Former Cigarettes 2 50 0 01/02/1966 - 01/03/2016 Pipe Smokeless Tobacco: Never Alcohol Use Standard Drinks/Week Comments Yes 0 (1 standard drink = 0.6 oz pur e alcohol) beer and wine Sex and Gender Information Value Date Recorded Sex Assigned at Not on file Legal Sex Male 2:45 AM EDT Gender Identity Not on file Sexual Orientation Not on file documented as of this encounter Last Filed Vital Signs Vital Sign Reading Time Taken Comments Blood Pressure 140/70 06/19/2019 11:09 AM EDT Pulse 72 06/19/2019 11:09 AM EDT Temperature 36.8 ??C (98.2 ??F) 06/19/2019 11:09 AM E DT Respiratory Rate 18 06/19/2019 11:09 AM EDT Oxygen Saturation 96% 06/19/2019 11:09 AM EDT Inhaled Oxygen Concentration - - Weight 116.1 kg (256 lb) 06/19/2019 11:09 AM EDT Height 190.5 cm (6' 3 ) 06/19/2019 11:09 AM EDT Body Mass Index 32 06/19/2019 11:09 AM EDT documented in this encounter Ordered Prescriptions Prescription Sig Dispense Quantity Refills Last Filled Start Date End Date dicloxacillin (DYNAPEN) 500 mg Oral CapsuleIndications:P aronychia of great toe of right foot Take 1 Cap by mouth every 6 hours for 7 days. 28 Cap 06/19/2019 9 diclofenac (VOLTAREN) 1 % Top GelIndications:Prima ry osteoarthritis of both knees Apply 2 g topically 4 times daily. 100 g 2 06/19/2019 0 LORazepam (ATIVAN) 0.5 mg Oral TabletIndications:An xiety disorder, unspecified type Take 1 Tab by mouth every 8 hours as needed for Anxiety. 30 Tab 06/19/2019 9 dicloxacillin (DYNAPEN) 500 mg Oral CapsuleIndications:P aronychia of great toe of right foot Take 1 Cap by mouth every 6 hours for 7 days. 28 Cap 06/19/2019 9 losartan (COZAAR) 50 mg Oral TabletIndications:Es sential hypertension Take 1 Tab by mouth daily. 90 Tab 3 06/19/2019 0 documented in this encounter Progress Notes * Dora Hernandez MD - 06/19/2019 11:00 AM EDT Assessment Diagnoses and all orders for this visit: Paronychia of great toe of right foot - AMB REFERRAL TO PODIATRY - dicloxacillin (DYNAPEN) 500 mg Oral Capsule; Take 1 Cap by mouth every 6 hours for 7 days. Dispense: 28 Cap; Refill: 0 Essential hypertension - COMPREHENSIVE METABOLIC PANEL; Future - CBC; Future - LIPID PANEL REFLEX; Future - losartan (COZAAR) 50 mg Oral Tablet; Take 1 Tab by mouth daily. Dispense: 90 Tab; Refill: 3 Pulmonary nodule, right - CT CHEST W CONTRAST; Future Mass of skin of right shoulder - AMB REFERRAL TO GENERAL SURGERY Lipoma of back - AMB REFERRAL TO GENERAL SURGERY Need for pneumococcal vaccination - PNEUMOCOCCAL POLYSACCHARIDE VACCINE 23-VALENT =>2YO SQ/IM Situational anxiety Anxiety disorder, unspecified type - LORazepam (ATIVAN) 0.5 mg Oral Tablet; Take 1 Tab by mouth every 8 hours as needed for Anxiety. Dispense: 30 Tab; Refill: 0 Primary osteoarthritis of both knees - diclofenac (VOLTAREN) 1 % Top Gel; Apply 2 g topically 4 times daily. Dispense: 100 g; Refill: 2 Pt was advised on indications, precautions and potential s/e of new rx. Pt has no plans to f/u with Pulmo at this time. CT chest ordered as planned by Dr Burris. Consult Surg re: R Shoulder mass. Pt rarely takes ativan. rx was last filled in 2017. [facility]. No red flags. rx refilled. If will need refill, f/u in 3 months. Adv dir d/w pt and . Handout provided. Progress Note: Vitals: 06/19/19 1109 BP: 140/70 Pulse: 72 Resp: 18 Temp: 98.2 ??F (36.8 ??C) TempSrc: Oral SpO2: 96% Weight: 256 lb (116.1 kg) Height: 6' 3 (1.905 m) SUBJECTIVE: Chief Complaint Patient presents with ??? Nail Problem Pt c/o his toe nail's falling off and infection-Pt has been taking Dicloxacillin 500 mg from 11/09/2014 for this issue HPI: C/o toenail infection, R great toe and L 2nd toe. He has an old rx for Dicloxacillin and he started taking- he felt that it is helping. No fever. Also c/o mass on B shoulders. HTN. Needs rx refilled. Denies s/e from meds. Situational anxiety. He takes ativan prn - rarely. He took last tab from rx in 2017. Review of Systems OBJECTIVE: Physical Exam Constitutional: He is oriented to person, place, and time. He appears well- developed. No distress. Cardiovascular: Normal rate and regular rhythm. Pulmonary/Chest: Effort normal and breath sounds normal. Musculoskeletal: Normal range of motion. Lipoma on L shoulder. Firm movable mass on R shoulder - increasing in size per pt's . Neurological: He is alert and oriented to person, place, and time. Skin: Paronychia with some some cellulitis on R great toe and L second toe. Mycotic toenails documented in this encounter Miscellaneous Notes * Patient Instructions - Dora Hernandez MD - 06/19/2019 11:00 AM EDT Images from the original note were not included. Advance Directive Advance directives are legal documents that let you make choices ahead of time about your health care and medical treatment in case you become unable to communicate for yourself. Advance directives are a way for you to communicate your wishes to family, friends, and health care providers. This can help convey your decisions about end-of-life care if you become unable to communicate. Discussing and writing advance directives should happen over time rather than all at once. Advance directives can be changed depending on your situation and what you want, even after you have signed the advance directives. If you do not have an advance directive, some states assign family decision makers to act on your behalf based on how closely you are related to them. Each state has its own laws regarding advance directives. You may want to check with your health care provider, insurance defense attorney, or state client account representative about the laws in your state. There are different types of advance directives, such as: ?? Medical power of insurance defense attorney. ?? Living will. ?? Do not resuscitate (DNR) or do not attempt resuscitation (DNAR) order. Health care proxy and medical power of insurance defense attorney A health care proxy, also called a health care agent, is a person who is appointed to make medical decisions for you in cases in which you are unable to make the decisions yourself. Generally, peoplechoose someone they know well and trust to represent their preferences. Make sure to ask this person for an agreement to act as your proxy. A proxy may have to exercise judgment in the event of a medical decision for which your wishes are not known. A medical power of insurance defense attorney is a legal document that names your health care proxy. Depending on thelaws in your state, after the document is written, it may also need to be: ?? Signed. ?? Notarized. ?? Dated. ?? Copied. ?? Witnessed. ?? Incorporated into your medical record. You may also want to appoint someone to manage your financial affairs in a situation in which you are unable to do so. This is called a durable power of insurance defense attorney for finances. It is a separate legal document from the durable power of insurance defense attorney for health care. You may choose the same person or someone different from your health care proxy to act as your agent in financial matters. If you do not appoint a proxy, or if there is a concern that the proxy is not acting in your best interests, a court-appointed guardian may be designated to act on your behalf. Living will A living will is a set of instructions documenting your wishes about medical care when you cannot express them yourself. Health care providers should keep a copy of your living will in your medical record. You may want to give a copy to family members or friends. To alert caregivers in case of an emergency, you can place a card in your wallet to let them know that you have a living will and wherethey can find it. A living will is used if you become: ?? Terminally ill. ?? Incapacitated. ?? Unable to communicate or make decisions. Items to consider in your living will include: ?? The use or non-use of life-sustaining equipment, such as dialysis machines and breathing machines (ventilators). ?? A DNR or DNAR order, which is the instruction not to use cardiopulmonary resuscitation (CPR) if breathing or heartbeat stops. ?? The use or non-use of tube feeding. ?? Withholding of food and fluids. ?? Comfort (palliative) care when the goal becomes comfort rather than a cure. ?? Organ and tissue donation. A living will does not give instructions for distributing your money and property if you should pass away. It is recommended that you seek the advice of a senior storage administrator when writing a will. Decisions about taxes, beneficiaries, and asset distribution will be legally binding. This process can relieve your family and friends of any concerns surrounding disputes or questions that may come up about the distribution of your assets. DNR or DNAR A DNR or DNAR order is a request not to have CPR in the event that your heart stops beating or you stop breathing. If a DNR or DNAR order has not been made and shared, a health care provider will tryto help any patient whose heart has stopped or who has stopped breathing. If you plan to have surgery, talk with your health care provider about how your DNR or DNAR order will be followed if problems occur. Summary ?? Advance directives are the legal documents that allow you to make choices ahead of time about your health care and medical treatment in case you become unable to communicate for yourself. ?? The process of discussing and writing advance directives should happen over time. You can changethe advance directives, even after you have signed them. ?? Advance directives include DNR or DNAR orders, living escobar, and designating an agent as your medical power of insurance defense attorney. This information is not intended to replace advice given to you by your health care provider. Make sure you discuss any questions you have with your health care provider. Document Released: 01/17/2009 Document Revised: 08/30/2017 Document Reviewed: 08/30/2017 [email or web address] Interactive Patient Education ?? 2019 [employer]AKO. documented in this encounter Plan of Treatment Scheduled Orders Name Type Priority Associated Diagnoses Orde r Schedule CT CHEST W CONTRAST Imaging Routine Pulmonary nodule, right 1 Occurrences starting 06/19/2019 until 06/19/2020 Scheduled Referrals Name Type Priority Associated Diagnoses Orde r Schedule AMB REFERRAL TO PODIATRY Outpatient Referral Routine Paronychia of great toe of right foot Ordered: 06/19/2019 AMB REFERRAL TO GENERAL SURGERY Outpatient Referral Routine Mass of skin of right shoulder Lipoma of back Ordered: 06/19/2019 documented as of this encounter Goals Goal [...] as of this encounter Visit Diagnoses Diagnosis Paronychia of great toe of right foot- Primary Onychia and paronychia of toe Essential hypertension Unspecified essential hypertension Pulmonary nodule, right Solitary pulmonary nodule Mass of skin of right shoulder Lipoma of back Lipoma of other specified sites Need for pneumococcal vaccination Need for prophylactic vaccination against streptococcus pneumoniae (pneumococcus) Situational anxiety Other anxiety states Anxiety disorder, unspecified type Primary osteoarthritis of both knees Primary localized osteoarthrosis, lower leg documented in this encounter Discontinued Medications Medication Sig Discontinue Reason Start Date End Da te losartan-hydrochlorothiaz fadia (HYZAAR) 50-12.5 mg Oral TabletIndications:Essenti al hypertension Take 1 Tab by mouth daily. Cancelled by 02/08/2019 06/19/2019 KLOR-ALYCE M10 10 mEq Oral Tab Sust.Rel. Particle/CrystalIndicatio ns:Bilateral lower extremity edema TAKE ONE TABLET BY MOUTH DAILY NEEDED *TAKE ONLY WHEN TAKING LASIX FOR LEG SWELLING* Patient discharge 01/01/2017 06/19/2019 fUROsemide (LASIX) 20 mg Oral TabletIndications:Bilater al lower extremity edema TAKE ONE TABLET BY MOUTH DAILY NEEDED FOR SWELLING Patient discharge 01/01/2017 06/19/2019 trimethoprim-polymyxin b (POLYTRIM) Opht DropsIndications:Acute bacterial conjunctivitis of both eyes INSTILL ONE DROP TO THE AFFECTED EYE(S) EVERY 4 HOURS FOR 5 DAYS Cancelled by 10/29/2017 06/19/2019 polyethylene glycol (GLYCOLAX, MIRALAX) 17 gram Oral Powder in Packet DISSOLVE ONE PACKET IN 8OZ LIQUID & DRINK BY MOUTH DAILY Cancelled by 08/10/2016 06/19/2019 docusate sodium (COLACE) 100 mg Oral CapsuleIndications:Change in bowel movement Take 1 Cap by mouth daily. Patient discharge 12/01/2016 06/19/2019 acetaminophen-codeine (TYLENOL #3) 300-30 mg Oral TabletIndications:Herpes zoster without complication Take 1 Tab by mouth every 6 hours as needed for Pain. Patient discharge 07/26/2017 06/19/2019 LORazepam (ATIVAN) 0.5 mg Oral TabletIndications:Anxiety disorder, unspecified type Take 1 Tab by mouth every 8 hours as needed for Anxiety. Patient discharge 07/26/2017 06/19/2019 dicloxacillin (DYNAPEN) 500 mg Oral CapsuleIndications:Parony jose rafael of great toe of right foot Take 1 Cap by mouth every 6 hours for 7 days. Reorder 06/19/2019 06/19/2019 documented as of this encounter Orders Immunization/Injection Count Last Ordered Date First Ordered Date PNEUMOCOCCAL POLYSACCHARIDE VACCINE 23-VALENT =>2YO SQ/IM 1 06/19/2019 documented in this encounter Additional Health Concerns Assessment Noted Time A fall risk assessment has been complete d for the patient 12/01/2016 9:10 AM EST documented as of this encounter Care Teams Die Presser Relationship Specialty Start Date End Date Dora Hernandez MD [address] [place] [id number] PCP - General Family Medicine 12/24/15 documented as of this encounter
--- OUTSIDE RECORDS SUMMARY | 2024-09-12 12:46 | XMS_ITS | Encounter Summary ---
Author Organization [place] [address] Care Team Providers Care Pst Manager Name Role Phone Dora Hernandez MD Primary Care Provider [phone] Reason for Visit * Reason Onset Date Comments Medication Refill 09/28/2019 Encounter Details Date Type Department Care Team (Late st Contact Info) Description 09/28/2019 Refill [facility] [address] [place] [address] Dora Hernandez MD [address] [place] [address] Medication Refill Social History Tobacco [...] End Date amLODIPine (NORVASC) 10 mg Oral Tablet Take 1 Tab by mouth daily. 90 Tab 3 09/28/2019 10/03/2019 documented in this encounter Miscellaneous Notes * Telephone Encounter - Grace Rojas RMA - 09/28/2019 1:46 PM EST E scribed Thank you * Telephone Encounter - Rita Wilburn - 09/28/2019 11:38 AM EST Medication Refill Who is requesting the refill: pt Medication(s)Name/Dosage/Frequency: amLODIPine (NORVASC) 10 mg Oral Tablet 30 Did patient contact the pharmacy first: Yes didn't get in right chart How many days left on hand: 2 Future appt date w/ prescribing provider: 10-03-2019 Pharmacy & Location: [facility] [place] [place] [address] [address] [facility] - [phone] Additional Notes: documented in this encounter Plan [...] te amLODIPine (NORVASC) 10 mg Oral Tablet Take 1 Tab by mouth daily. Reorder 02/08/2019 09/28/2019 documented as of this encounter Additional Health Concerns Assessment Noted Time A fall risk assessment has been complete d for the patient 12/01/2016 9:10 AM EST documented as of this encounter Care Teams Pst Manager Relationship Specialty Start Date End Date Dora Hernandez MD [address] [place] [id number] PCP - General Family Medicine 12/24/15 documented as of this encounter
--- OUTSIDE RECORDS SUMMARY | 2024-09-12 12:46 | XMS_ITS | Encounter Summary ---
Author Organization [place] [address] Care Team Providers Care Community Pharmacist Name Role Phone Dora Hernandez MD Primary Care Provider [phone] Reason for Visit * Reason Comments Follow-up 1 month check/ med c heck Encounter Details Date Type Department Care Team (Late st Contact Info) Description 10/03/2019 8:20 AM EST Office Visit [facility] [address] [place] [address] Dora Hernandez MD [address] [facility] [facility] [place] [address] BPH without urinary obstruction (Primary Dx); Obesity, Class I, BMI 30-34.9; Peripheral polyneuropathy; Hypercholesteremia; Encounter for long-term current use of medication; Anxiety disorder, unspecified type; Essential hypertension Social History Tobacco Use Types [...] Sign Reading Time Taken Comments Blood Pressure 120/70 10/03/2019 8:29 AM EST Pulse 65 10/03/2019 8:29 AM EST Temperature 37.1 ??C (98.7 ??F) 10/03/2019 8:29 AM ES T Respiratory Rate 16 10/03/2019 8:29 AM EST Oxygen Saturation 98% 10/03/2019 8:29 AM EST Inhaled Oxygen Concentration - - Weight 116.6 kg (257 lb) 10/03/2019 8:29 AM EST Height 190.5 cm (6' 3 ) 10/03/2019 8:29 AM EST Body Mass Index 32.12 10/03/2019 8:29 AM EST documented in this encounter Functional [...] hours as needed for Anxiety. 30 Tab 10/03/2019 0 gabapentin (NEURONTIN) 100 mg Oral CapsuleIndications:P eripheral polyneuropathy Take 1 Cap by mouth 2 times daily. Start 1 tab PO QHS x 3 days, then 1 tab PO BID. 60 Cap 2 10/03/2019 0 rosuvastatin (CRESTOR) 5 mg Oral TabletIndications:Hy percholesteremia Take 1 Tab by mouth nightly. 30 Tab 2 10/03/2019 0 amLODIPine (NORVASC) 10 mg Oral TabletIndications:Es sential hypertension Take 1 Tab by mouth daily. 30 Tab 10/03/2019 0 tamsulosin (FLOMAX) 0.4 mg Oral CapsuleIndications:B PH without urinary obstruction Take 1 Cap by mouth nightly. 90 Cap 3 10/03/2019 0 documented in this encounter Progress Notes * Dora Hernandez MD - 10/03/2019 8:20 AM EST Vitals: 10/03/19 0829 BP: 120/70 Pulse: 65 Resp: 16 Temp: 98.7 ??F (37.1 ??C) TempSrc: Oral SpO2: 98% Weight: 257 lb (116.6 kg) Height: 6' 3 (1.905 m) SUBJECTIVE: Chief Complaint Patient presents with ??? Follow-up 1 month check/ med check HPI: Hypertension: Home reporting of hypertension was [...] cholesterol goals discussed with patient. Thepatient is not on a lipid lowering agent. The patient currently is not on a statin. No complaints of side effects from medication. Diet has been reviewed with patient. C/o neuropathy - both feet. Trouble with walking at times d/t neuropathy. Admits to ETOH. Controlled Substance Common Conditions Interval Assessment: Anxiety: Jac Garvin is here for follow up of chronic anxiety and medication management. Currently, he reports anxiety level as controlled with current treatments in place. He reports taking current medications 1 times per day prn. Rarely need to take rx. Usually when he speaks in public. He is not having side effects from medications. He has abstained from alcohol while requiring thismedication. Current limitations of anxiety symptoms include: ability [...] controlled substance flow sheet has been reviewed. [facility] Reference Number: [id number] [facility] Results: as expected Review of Systems OBJECTIVE: Physical Exam Constitutional: Appearance: He is obese. Cardiovascular: Rate and Rhythm: Normal rate and regular rhythm. Pulmonary: Effort: Pulmonary effort is normal. Breath sounds: Normal breath sounds. Musculoskeletal: General: No tenderness. Right lower leg: No edema. Left lower leg: No edema. Neurological: Mental Status: He is alert and oriented to person, place, and time. Cranial Nerves: No cranial nerve deficit. Psychiatric: Mood and Affect: Mood normal. Behavior: Behavior normal. Assessment Diagnoses and all orders for this visit: BPH without urinary obstruction - tamsulosin (FLOMAX) 0.4 mg Oral Capsule; Take 1 Cap by mouth nightly. Dispense: 90 Cap; Refill: 3 Obesity, Class I, BMI 30-34.9 Peripheral polyneuropathy - gabapentin (NEURONTIN) 100 mg Oral Capsule; Take 1 Cap by mouth 2 times daily. Start 1 tab PO QHSx 3 days, then 1 tab PO BID. Dispense: 60 Cap; Refill: 2 Hypercholesteremia - rosuvastatin (CRESTOR) 5 mg Oral Tablet; Take 1 Tab by mouth nightly. Dispense: 30 Tab; Refill: 2 Encounter for long-term current use of medication - HB-1 CUSTOM UDS PANEL-QUEST; Future - PDM,BENZODIAZEPINES W/ CONF, URINE-QUEST; Future Anxiety disorder, unspecified type - LORazepam (ATIVAN) 0.5 mg Oral Tablet; Take 1 Tab by mouth every 8 hours as needed for Anxiety. Dispense: 30 Tab; Refill: 0 Essential hypertension - amLODIPine (NORVASC) 10 mg Oral Tablet; Take 1 Tab by mouth daily. Dispense: 30 Tab; Refill: 0 flomax is helping - continue. Cont improved diet/exercise to cont to lose weight. Lab results d/w pt. Start statin. He had s/e from lipitor in the past but is willing to try anotherstatin. Try low dose crestor. Start Gabapentin. Malachi [id number]. Last filled on 06/19/19. F/u in 3 months, sooner prn. [facility] Documentation End of visit [facility] Assessments Educated patient and spouse regarding the diagnosis, medication/treatment, goals, self-management tools and instructions based on their care plan. They verbalized understanding of the education givenon the After Visit Summary [AVS] for today's visit. A copy of the AVS was provided either in writing and/or via [employer]. A new medicine or changed medication dose was prescribed during this office visit. I did discuss the reason for prescribing this new medication. I also informed of possible likely side effects, but also encouraged them to read the medication insert that will accompany their prescription and encouraged them to discuss any questions about the insert with their pharmacist. I instructed them to call if having side effects or possible allergic reaction after taking. I also discussed the risk of stopping the medication or deviating from prescribing instructions. Dosing instructions are present on the AVS and the they are aware. I inquired of any questions and answered accordingly. documented in this encounter Miscellaneous Notes * Patient Instructions - Dora Hernandez MD - 10/03/2019 8:20 AM EST Images from the original note were not included. Please call [phone] chest with contrast to follow-up on lung nodule. Patient Education Prediabetes Eating Plan Prediabetes is a condition that causes blood sugar (glucose) levels to be higher than normal. This increases the risk for developing diabetes. In order to prevent diabetes from developing, your health care provider may recommend a diet and other lifestyle changes to help you: ?? Control your blood glucose levels. ?? Improve your cholesterol levels. ?? Manage your blood pressure. Your health care provider may recommend working with a diet and community nutrition educator (dietitian) tomake a meal plan that is best for you. What are tips for following this plan? Lifestyle ?? Set weight loss goals with the help of your health care team. It is recommended that most peoplewith prediabetes lose 7% of their current body weight. ?? Exercise for at least 30 minutes at least 5 days a week. ?? Attend a support group or seek ongoing support from a mental health counselor. ?? Take scfu-wnd-oeowtkr and prescription medicines only as told by your health care provider. Reading food labels ?? Read food labels to check the amount of fat, salt (sodium), and sugar in prepackaged foods. Avoid foods that have: ? Saturated fats. ? Trans fats. ? Added sugars. ?? Avoid foods that have more than 300 milligrams (mg) of sodium per serving. Limit your daily sodium intake to less than 2,300 mg each day. Shopping ?? Avoid buying pre-made and processed foods. Cooking ?? Cook with olive oil. Do not use butter, lard, or ghee. ?? Bake, broil, grill, or boil foods. Avoid frying. Meal planning ?? Work with your dietitian to develop an eating plan that is right for you. This may include: ? Tracking how many calories you take in. Use a food diary, notebook, or mobile application to track what you eat at each meal. ? Using the glycemic index (GI) to plan your meals. The index tells you how quickly a food will raise your blood glucose. Choose low-GI foods. These foods take a longer time to raise blood glucose. ?? Consider following a Mediterranean diet. This diet includes: ? Several servings each day of fresh fruits and vegetables. ? Eating fish at least twice a week. ? Several servings each day of whole grains, beans, nuts, and seeds. ? Using olive oil instead of other fats. ? Moderate alcohol consumption. ? Eating small amounts of red meat and whole-fat dairy. ?? If you have high blood pressure, you may need to limit your sodium intake or follow a diet such as the DASH eating plan. DASH is an eating plan that aims to lower high blood pressure. What foods are recommended? The items listed below may not be a complete list. Talk with your dietitian about what dietary choices are best for you. Grains Whole grains, such as whole-wheat or whole-grain breads, crackers, cereals, and pasta. Unsweetened oatmeal. Bulgur. Barley. Quinoa. Brown rice. [place] or whole- wheat flour tortillas or taco shells. Vegetables Lettuce. Spinach. Peas. Beets. Cauliflower. Cabbage. Broccoli. Carrots. Tomatoes. Squash. Eggplant.Herbs. Peppers. Onions. Cucumbers. [place] sprouts. Fruits Berries. Bananas. Apples. Oranges. Grapes. Papaya. [place]. Pomegranate. Kiwi. Grapefruit. Cherries. Meats and other protein foods Seafood. Poultry without skin. Lean cuts of pork and beef. Tofu. Eggs. Nuts. Beans. Dairy Low-fat or fat-free dairy products, such as yogurt, cottage cheese, and cheese. Beverages Water. Tea. Coffee. Sugar-free or diet soda. [place] water. Lowfat or no-fat milk. Milk alternatives, such as soy or almond milk. Fats and oils [place] oil. Canola oil. [place] oil. Grapeseed oil. Avocado. Walnuts. Sweets and desserts Sugar-free or low-fat pudding. Sugar-free or low-fat ice cream and other frozen treats. Seasoning and other foods Herbs. Sodium-free spices. Mustard. Relish. Low-fat, low-sugar ketchup. Low-fat, low-sugar barbecuesauce. Low-fat or fat-free mayonnaise. What foods are not recommended? The items listed below may not be a complete list. Talk with your dietitian about what dietary choices are best for you. Grains Refined white flour and flour products, such as bread, pasta, snack foods, and cereals. Vegetables Canned vegetables. Frozen vegetables with butter or cream sauce. Fruits Fruits canned with syrup. Meats and other protein foods Fatty cuts of meat. Poultry with skin. Breaded or fried meat. Processed meats. Dairy Full-fat yogurt, cheese, or milk. Beverages Sweetened drinks, such as sweet iced tea and soda. Fats and oils Butter. Lard. Ghee. Sweets and desserts Baked goods, such as cake, cupcakes, pastries, cookies, and cheesecake. Seasoning and other foods Spice mixes with added salt. Ketchup. Barbecue sauce. Mayonnaise. Summary ?? To prevent diabetes from developing, you may need to make diet and other lifestyle changes to help control blood sugar, improve cholesterol levels, and manage your blood pressure. ?? Set weight loss goals with the help of your health care team. It is recommended that most peoplewith prediabetes lose 7 percent of their current body weight. ?? Consider following a Mediterranean diet that includes plenty of fresh fruits and vegetables, whole grains, beans, nuts, seeds, fish, lean meat, low-fat dairy, and healthy oils. This information is not intended to replace advice given to you by your health care provider. Make sure you discuss any questions you have with your health care provider. Document Released: 02/25/2016 Document Revised: 12/15/2017 Document Reviewed: 12/15/2017 [employer] Patient Education ?? 2019 [place]. documented in this encounter Plan of Treatment Scheduled Orders Name Type Priority Associated Diagnoses Orde r Schedule PDM,BENZODIAZEPINES W/ CONF, URINE-QUEST Lab Routine Encounter for long-term current use of medication 1 Occurrences starting 10/03/2019 until 10/03/2020 documented as of this encounter Goals Goal Patient Goal Type Associated Problems Recent Progress Patient-Stated? Author Blood Pressure < 140/90 Blood Pressure 110/78(2023 11:26 AM EDT) No Ember Canela, RN Maintain a healthy diet, exercise regularly and maintain an ideal body weight General No iKm Solis RMA Maintain a healthy diet, exercise regularly and maintain an ideal body weight General No Aurelia Saldana RMA Stay Tobacco Free Lifestyle No Kim Solis RMA documented as of this encounter Results * (ABNORMAL) HB-1 CUSTOM UDS PANEL-QUEST (10/03/2019 1:40 PM EST) Prescribed Drug 1 Lorazepam [facility] [place] Ritalinic Acid NEGATIVE <100 ng/mL [facility] [place] Comment:See Note 1 medMATCH Ritalinic Acid CONSISTENT [facility] [place] medMatch Comments [facility] [place] Comment:See Note 2 Prescribed Drug 1 Lorazepam [facility] [place] 6-Acetylmorphine,G C/MS NEGATIVE <10 ng/mL [facility] [place] medMATCH 6 Acetylmorphine CONSISTENT [facility] [place] medMatch Comments [facility] Comment:See Note 2 Prescribed Drug 1 Lorazepam [facility] [place] Creatinine, Urine 58.5 > or = 20.0 mg/dL [facility] UA Spec Grav 1.014 > or = 1.003 [facility] UA pH 5.4 4.5 - 9.0 [facility] Oxidant NEGATIVE <200 mcg/mL [facility] Amphetamines NEGATIVE <500 ng/mL [facility] [place] [facility] Bar[facility]ur[facility] NEGATIVE <300 ng/mL [facility] [place] medMATCH Barbiturates CONSISTENT [facility] Benzodiazepines NEGATIVE <100 ng/mL [facility] [place] medMATCH Benzodiazepines INCONSISTENT( A) [facility] Marijuana Metabolite NEGATIVE <20 ng/mL [facility] [place] medMATCH Marijuana Metab CONSISTENT [facility] Cocaine Metabolite NEGATIVE <150 ng/mL [facility] [place] medMATCH Cocaine Metab CONSISTENT [facility] Methadone NEGATIVE <100 ng/mL [facility] [place] medMATCH Methadone CONSISTENT [facility] [place] Opiates NEGATIVE <100 ng/mL [facility] [place] medMATCH Opiates CONSISTENT [facility] [place] Oxycodone NEGATIVE <100 ng/mL [facility] [place] medMATCH Oxycodone CONSISTENT [facility] [place] medMatch Comments [facility] [place] Comment: See Note 2 Note 1 This test was developed and its analytical performance characteristics have been determined by [facility]. It has not been cleared or approved [...] or to monitor progress of medical conditions. [facility] comments are: - present when drug test results may be the result of ?? metabolism of one or more drugs or when results are ?? inconsistent with prescribed medication(s) listed. - may be blank when drug results are consistent with ?? prescribed medication(s) listed. For assistance with interpreting these drug results, please contact a [facility] Toxicology Specialist: [phone] ( ), M-F, 8am-6pm EST. 10/03/2019 1:40 PM EST 10/03/2019 6:53 PM EST Dora Hernandez MD [facility]PD[facility] ORDERABLE (NON-SEH) F inal Result [facility] [address] [place] [address] [facility] [address] [place] [address] documented in this encounter Visit Diagnoses Diagnosis BPH without urinary obstruction- Primary Hypertrophy of prostate without urinary obstruction and other lower urinary tract symptoms (LUTS) Obesity, Class I, BMI 30-34.9 Obesity, unspecified Peripheral polyneuropathy Unspecified hereditary and idiopathic peripheral neuropathy Hypercholesteremia Pure hypercholesterolemia Encounter for long-term current use of medication Anxiety disorder, unspecified type Essential hypertension Unspecified essential hypertension documented in this encounter Discontinued Medications Medication Sig Discontinue Reason Start Date End Da te tamsulosin (FLOMAX) 0.4 mg Oral CapsuleIndications:BPH without urinary obstruction Take 1 Cap by mouth nightly. Reorder 08/31/2019 10/03/2019 amLODIPine (NORVASC) 10 mg Oral Tablet Take 1 Tab by mouth daily. Reorder 09/28/2019 10/03/2019 LORazepam (ATIVAN) 0.5 mg Oral TabletIndications:Anxiety disorder, unspecified type Take 1 Tab by mouth every 8 hours as needed for Anxiety. Reorder 06/19/2019 10/03/2019 documented as of this encounter Additional Health Concerns Assessment Noted Time A fall risk assessment has been complete d for the patient 10/03/2019 8:29 AM EST documented as of this encounter Care Teams Community Pharmacist Relationship Specialty Start Date End Date Dora Hernandez MD [address] [facility] [place] [address] PCP - General Family Medicine 12/24/15 documented as of this encounter
--- OUTSIDE RECORDS SUMMARY | 2024-09-12 12:46 | XMS_ITS | Encounter Summary ---
Author Organization [place] [address] Care Team Providers Care Stove Installer Name Role Phone Dora Hernandez MD Primary Care Provider [phone] Reason for Visit * Reason Onset Date Comments Medication Refill 10/11/2019 Encounter Details Date Type Department Care Team (Late st Contact Info) Description [facility] [address] [place] [address] Dora Hernandez MD [address] [place] [address] Medication Refill Social History Tobacco [...] 100 mg Oral Tablet Sustained Release 24 hrIndications:Essen tial hypertension Take 1 Tab by mouth daily. 90 Tab 10/11/2019 2019 metoprolol succinate ER (TOPROL-XL) 100 mg Oral Tablet Sustained Release 24 hrIndications:Essen tial hypertension Take 1 Tab by mouth daily. 30 Tab 10/11/2019 10/11/2019 documented in this encounter Miscellaneous Notes * Telephone Encounter - Kim Solis RMA - 10/11/2019 9:42 AM EST Refills sent * Telephone Encounter - Florinda Abbott - 10/11/2019 8:51 AM EST Medication Refill Who is requesting the refill: Patient's Medication(s)Name/Dosage/Frequency: metoprolol succinate ER (TOPROL-XL) 100 mg Oral Tablet Sustained Release 24 hr 90 Tab 3 12/16/2016 Sig - Route: Take 1 Tab by mouth daily. - Oral Did patient contact the pharmacy first: Yes lenin has been trying to contact the office How many days left on hand: 7 Future appt date w/ prescribing provider: 01/04/20 Pharmacy & Location: Patients [facility] since [facility] only has 7 left. She is also requesting a 90 day supply be sent to [facility] mail order pharmacy. Additional Notes: documented in this encounter Plan [...] Take 1 Tab by mouth daily. Reorder 12/16/2016 10/11/2019 metoprolol succinate ER (TOPROL-XL) 100 mg Oral Tablet Sustained Release 24 hrIndications:Essential hypertension Take 1 Tab by mouth daily. Reorder 10/11/2019 10/11/2019 documented as of this encounter Additional Health Concerns Assessment Noted Time A fall risk assessment has been complete d for the patient 10/03/2019 8:29 AM EST documented as of this encounter Care Teams Stove Installer Relationship Specialty Start Date End Date Dora Hernandez MD [address] [facility] [place] [address] PCP - General Family Medicine 12/24/15 documented as of this encounter
--- OUTSIDE RECORDS SUMMARY | 2024-09-12 12:46 | XMS_ITS | Encounter Summary ---
Author Organization [facility] [address] Care Team Providers Care Incident Analyst Name Role Phone Dora Hernandez MD Primary Care Provider [phone] Reason for Visit * Reason Onset Date Comments Appointment Needed 06/15/2019 physical/infe cted toe Encounter Details Date Type Department Care Team (Late st Contact Info) Description 06/15/2019 Telephone SEP [facility] [address] [facility] [place] [address] Dora Hernandez MD [address] [facility] [address] Appointment Needed (physical/infected toe) Social History Tobacco Use Types Packs/Day Years Used Date Smoking Tobacco: Former Cigarettes 2 50 0 01/02/1966 - 01/03/2016 Pipe Alcohol Use Standard Drinks/Week Comments Yes 0 (1 standard drink = 0.6 oz pur e alcohol) beer and wine Sex and Gender Information Value Date Recorded Sex Assigned at Not on file Legal Sex Male 2:45 AM EDT Gender Identity Not on file Sexual Orientation Not on file documented as of this encounter Miscellaneous Notes * Telephone Encounter - Hieu Vasquez - 06/16/2019 9:48 AM EDT Called pt schedule today. Left voicemail * Telephone Encounter - Kim Solis RMA - 06/16/2019 9:08 AM EDT Please contact patient to schedule acute today with Zari * Telephone Encounter - Zari Dominguez APRN - 06/16/2019 8:59 AM EDT He can get in today for just his toe. Will need to keep appt for physical a separate day. Coral Perdomo has some openings * Telephone Encounter - Ember Ha - 06/15/2019 3:37 PM EDT Scheduled for his toe on 06/19/19 and his physical on 08/31/19 * Telephone Encounter - Kim Solis RMA - 06/15/2019 12:38 PM EDT Please contact patient to schedule for infected toe, possible wellness * Telephone Encounter - Nasra Gagnon - 06/15/2019 11:23 AM EDT Appointment Needed Appointment Requested By: Patient Provider Preference: PCP Only Type of Appt Needed: Annual Physical and infected toe Requested Timeframe: kenan Additional Notes: Pt's is calling and would like to be seen kenan for infected toe and annual physical if possible. documented in this encounter Plan of Treatment [...] documented as of this encounter Care Teams Incident Analyst Relationship Specialty Start Date End Date Dora Hernandez MD [address] [place] [address] PCP - General Family Medicine 12/24/15 documented as of this encounter
--- OUTSIDE RECORDS SUMMARY | 2024-09-12 12:46 | XMS_ITS | Encounter Summary ---
Author Organization [place] [address] Care Team Providers Care Community Service Director Name Role Phone Dora Hernandez MD Primary Care Provider [phone] Reason for Visit * Reason Comments Medication Refill Encounter Details Date Type Department Care Team (Late st Contact Info) Description 10/10/2019 Refill [facility] [address] [place] [address] Dora Hernandez MD [address] [place] [address] Medication Refill Social History Tobacco Use Types Packs/Day Years Used Date Smoking Tobacco: Never Assessed PHQ-2 Answer Date Recorded PHQ-2 Score 0 [...] an ideal body weight General No Kim oSlis RMA Maintain a healthy diet, exercise regularly [...] as of this encounter Care Teams Community Service Director Relationship Specialty Start Date End Date Dora Hernandez MD [address] [facility] [phone] PCP - General Family Medicine 12/24/15 documented as of this encounter
--- OUTSIDE RECORDS SUMMARY | 2024-09-12 12:46 | XMS_ITS | Encounter Summary ---
Author Organization [place] [address] Care Team Providers Care Industrial Laborer Name Role Phone Dora Hernandez MD Primary Care Provider [phone] Reason for Visit * Reason Comments Medication Refill Encounter Details Date Type Department Care Team (Late st Contact Info) Description 09/25/2019 Refill [facility] [address] [facility] [place] [address] Dora Hernandez MD [address] [place] [address] Medication Refill Social History Tobacco [...] documented as of this encounter Care Teams Industrial Laborer Relationship Specialty Start Date End Date Dora Hernandez MD [address] [facility] [phone] PCP - General Family Medicine 12/24/15 documented as of this encounter
--- OUTSIDE RECORDS SUMMARY | 2024-09-12 12:46 | XMS_ITS | Encounter Summary ---
Author Organization [place] [address] Care Team Providers Care Document Processing Specialist Name Role Phone Dora Hernandez MD Primary Care Provider [phone] Reason for Visit * Reason Onset Date Comments Symptom Call 01/24/2020 patient's w as told to call if patient had clots when he urinated, which is happening today 01/24/20 Encounter Details Date Type Department Care Team (Late st Contact Info) Description 01/24/2020 Telephone [facility] Gloria Leon [address] [place] [address] Dora Hernandez MD [address] [facility] [place] [address] Symptom Call (patient's was told to call if patient had clots when he urinated, which is happening today 01/24/20) Social History Tobacco Use Types Packs/Day Years [...] have Coronavirus / COVID-19? No / Unsure 01/23/2020 8:33 AM EDT documented as of this encounter [...] Telephone Encounter - Dora Hernandez MD - 01/25/2020 11:31 AM EDT I called and spoke to both pt and his . Urine is clear this morning. No longer passing blood clots - last occurred Wednesday. No pain. No fevers. No n/v. No dizziness or lightheadedness. Pt will continue to monitor symptoms and call prn. I also updated contact info - they do not use the [phone] number anymore. * Telephone Encounter - Mignon Oswald - 01/25/2020 11:17 AM EDT Pt's is calling you back. Pt's is waiting for your call. * Telephone Encounter - Dora Hernandez MD - 01/25/2020 7:57 AM EDT Pt is [facility]. I called number provided and spoke to pt's . She said pt had blood clots in urine yesterday morning, then later resolved. No fever. No n/v. Some back pain when he walks. No history of kidney stones. She will call me back in a few minutes when pt wakes up. Pls route back to me as soonas she calls back. Thanks. * Telephone Encounter - Danie Partida, Clerical Staff - 01/24/2020 2:10 PM EDT Symptoms Call Who is reporting the symptoms: Other What symptom(s) is the patient experiencing: patient's was told to call if patient had clots when he urinated, which is happening today 01/24/20, urine is also very red. How long have symptoms been present: 0 day(s) ago Has the patient been seen for this: Yes Has the patient tried anything to relieve the symptoms and did it help: Yes Water If pain, what level on scale 1-10 (10 being the greatest): 3 said has pain in his back Desired Outcome: Other, patient and were told to call if he starts having clots in urine Pharmacy & Location: [address] [address] [address] [facility] [facility] [phone] Additional Notes: Please advise [phone] documented in this encounter Plan of Treatment [...] documented as of this encounter Care Teams Document Processing Specialist Relationship Specialty Start Date End Date Dora Hernandez MD [address] [facility] [place] [address] PCP - General Family Medicine 12/24/15 documented as of this encounter
--- OUTSIDE RECORDS SUMMARY | 2024-09-12 12:46 | XMS_ITS | Encounter Summary ---
Author Organization [place] [address] Care Team Providers Care Mill Operator Head Name Role Phone Dora Hernandez MD Primary Care Provider [phone] Reason for Referral * MRI/CAT Scan (Routine) - Closed Specialty Diagnoses / Procedures Referred By Contac t Referred To Contact Radiology Diagnoses Nodule of right lung Procedures CT CHEST W CONTRAST Dora Hernandez MD [address] [place] [address] Phone: tel: fax: Referral ID Status Reason Start Date Expiration Date Visits Re quested Visits Authorized [id number] Closed 08/13/2020 08/13/2021 1 1 Reason for Visit * Reason Comments Annual Exam Encounter Details Date Type Department Care Team (Late st Contact Info) Description 08/13/2020 2:40 PM EDT Office Visit [facility] Leon [address] [place] [address] Dora Hernandez MD [address] [place] [address] Medicare annual wellness visit, subsequent (Primary Dx); Essential hypertension; Hypercholesteremia; Flu vaccine need; Anxiety disorder, unspecified type; Nodule of right lung; Uses hearing aid; Obesity, Class I, BMI 30-34.9 Social History Tobacco Use Types Packs/Day Years [...] Sign Reading Time Taken Comments Blood Pressure 140/72 08/13/2020 2:58 PM EDT Pulse 90 08/13/2020 2:58 PM EDT Temperature 36.8 ??C (98.2 ??F) 08/13/2020 2:58 PM ED T Respiratory Rate - - Oxygen Saturation 97% 08/13/2020 2:58 PM EDT Inhaled Oxygen Concentration - - Weight 117.9 kg (260 lb) 08/13/2020 2:58 PM EDT Height 190.5 cm (6' 3 ) 08/13/2020 2:58 PM EDT Body Mass Index 32.5 08/13/2020 2:58 PM EDT documented in this encounter Functional [...] TabletIndications: Anxiety disorder, unspecified type Take 1 Tab by mouth every 8 hours as needed for Anxiety. 30 Tab 08/13/2020 04/17/2021 documented in this encounter Progress Notes * Dora Hernandez MD - 08/13/2020 2:40 PM EDT Vitals: 08/13/20 1458 BP: 140/72 Pulse: 90 Temp: 98.2 ??F (36.8 ??C) TempSrc: Temporal SpO2: 97% Weight: 260 lb (117.9 kg) Height: 6' 3 (1.905 m) SUBJECTIVE: Chief Complaint Patient presents with ??? Annual Exam HPI: Medicare Wellness Assessment Flowsheet Version: Mr. Garvin is a 79 y.o. male here for an Subsequent Annual Medicare Wellness Assessment. Below are the results from wellness category assessments administered throughout the year compiled for review as part of today's assessment. Fall Risk Assessment Has the patient had [...] have stairs in the home?: No (In office Assessment Only): Is the patient [...] No results found for this visit on 08/13/20. Patient Active Problem List Diagnosis ??? Hyponatremia ??? Recurrent acute otitis media of both ears ??? Non morbid obesity due to excess calories ??? Elevated blood sugar ??? Essential hypertension ??? Pulmonary nodule, right ??? Former smoker ??? Uses hearing aid ??? Lipoma of back ??? Mass of skin of right shoulder ??? Primary osteoarthritis of both knees ??? Peripheral polyneuropathy ??? Other specified anxiety disorders ??? Obesity, Class I, BMI 30-34.9 Past Medical History: Diagnosis Date ??? Hypertension ??? Neuropathy ??? Tobacco use 12/23/2015 Past Surgical History: Procedure Laterality Date ??? CARDIAC CATHETERIZATION ??? DENTAL SURGERY ??? FOOT SURGERY No Known Allergies Current Outpatient Medications on File Prior to Visit Medication Sig Dispense Refill ??? amLODIPine (NORVASC) 10 mg Oral Tablet TAKE 1 TABLET EVERY DAY 90 Tab 0 ??? aspirin (ASPIRIN LOW DOSE) 81 mg Oral Tablet, Delayed Release (E.C.) Take 1 Tab by mouth daily. ??? Cod Liver Oil Oral Oil Take by mouth daily. ??? diclofenac (VOLTAREN) 1 % Top Gel APPLY 2 GRAMS TOPICALLY 4 TIMES DAILY. 300 g 2 ??? fluticasone (FLONASE) 50 mcg/actuation Nasl [place], Suspension 2 Sprays by Nasal route daily. 1 Bottle 5 ??? gabapentin (NEURONTIN) 100 mg Oral Capsule Take 2 Caps by mouth 2 times daily. 120 Cap 2 ??? Lactobac no.41/Bifidobact no.7 (PROBIOTIC-10 ORAL) Take by mouth. ??? losartan (COZAAR) 50 mg Oral Tablet Take 1 Tab by mouth daily. 90 Tab 3 ??? metoprolol succinate ER (TOPROL-XL) 100 mg Oral Tablet Sustained Release 24 hr TAKE 1 TABLET EVERY DAY 90 Tab 0 ??? MULTI-VITAMIN ORAL Take by mouth daily. ??? rosuvastatin (CRESTOR) 5 mg Oral Tablet Take 1 Tab by mouth nightly. 90 Tab 2 ??? tamsulosin (FLOMAX) 0.4 mg Oral Capsule TAKE 1 CAPSULE EVERY NIGHT 30 Cap 0 ??? vit A/vit C/vit E/zinc/copper (ICAPS [...] Types: Pipe Quit date: 01/03/2016 Years since quittin.6 ??? Smokeless tobacco: Never Used Substance and [...] Date Due ??? Zoster (1 of 2) 1992 ??? Low Dose Lung Cancer Screening 12/30/2017 ??? Wellness Exam Medicare 08/31/2020 ??? Fall Risk Assessment 10/03/2020 ??? Influenza Vaccine Completed ??? Pneumococcal Vaccine 65+ Completed Health Maintenance Due Topic Date Due ??? Zoster (1 of 2) 1992 ??? Low Dose Lung Cancer Screening 12/30/2017 Patient Care Team: Dora Hernandez MD as PCP - General (Family Medicine) Additional issues addressed today: Hypertension: Jac denies any episodes of dizziness, lightheadedness, [...] medications/treatments. Diet has been reviewed with patient. Gabapentin is helping with neuropathy. Denies s/e. Controlled Substance Common Conditions Interval Assessment: Anxiety: Jac Garvin is here for follow up of chronic anxiety and medication management. Currently, he reports anxiety level as controlled with current treatments in place. He reports taking current medications < 1 times per week. He is not having side effects from medications. He hasabstained from alcohol while requiring this medication. Current [...] controlled substance flow sheet has been reviewed. [facility] Reference Number: [id number] [facility] Results: as expected Review of Systems HENT: Negative for trouble swallowing. Respiratory: Negative for shortness of breath. Cardiovascular: Negative for chest pain. Gastrointestinal: Negative for abdominal pain and blood in stool. Genitourinary: Negative for hematuria. Neurological: Negative for dizziness, light-headedness and headaches. OBJECTIVE: Physical Exam Vitals signs and nursing note reviewed. Constitutional: General: He is not in acute distress. Appearance: Normal appearance. He is well-developed. He is obese. He is not ill- appearing or diaphoretic. HENT: Head: Normocephalic and atraumatic. Eyes: General: No scleral icterus. Right eye: No discharge. Left eye: No discharge. Conjunctiva/sclera: Conjunctivae normal. Neck: Musculoskeletal: Neck supple. Thyroid: No thyromegaly. Cardiovascular: Rate and Rhythm: Normal rate and regular rhythm. Heart sounds: Normal heart sounds. No murmur. Pulmonary: Effort: Pulmonary effort is normal. Breath sounds: Normal breath sounds. Abdominal: General: There is no distension. Palpations: Abdomen is soft. Tenderness: There is no abdominal tenderness. Musculoskeletal: Normal range of motion. Right lower leg: No edema. Left lower leg: No edema. Lymphadenopathy: Cervical: No cervical adenopathy. Skin: General: Skin is warm and dry. Findings: No rash. Neurological: Mental Status: He is alert and oriented to person, place, and time. Cranial Nerves: No cranial nerve deficit. Psychiatric: Mood and Affect: Mood normal. Behavior: Behavior normal. Assessment Diagnoses and all orders for this visit: Medicare annual wellness visit, subsequent Essential hypertension - CBC; Future - COMPREHENSIVE METABOLIC PANEL; Future - LIPID PANEL REFLEX; Future - STABLE, PATIENT HAS NO ISSUES Hypercholesteremia - COMPREHENSIVE METABOLIC PANEL; Future - LIPID PANEL REFLEX; Future - STABLE, PATIENT HAS NO ISSUES Flu vaccine need - QUADRIVALENT FLUZONE HIGH DOSE - DISCUSSED WITH PATIENT Anxiety disorder, unspecified type - LORazepam (ATIVAN) 0.5 mg Oral Tablet; Take 1 Tab by mouth every 8 hours as needed for Anxiety. Dispense: 30 Tab; Refill: 0 - STABLE, PATIENT HAS NO ISSUES Nodule of right lung - CT CHEST W CONTRAST; Future - DISCUSSED WITH PATIENT Uses hearing aid - DISCUSSED WITH PATIENT Obesity, Class I, BMI 30-34.9 - DISCUSSED WITH PATIENT Chest CT ordered in May 2019 has . Reorder. Ativan last rxed on 09/2019 #30. Malachi AE. UDS UTD. F/u in 6 months and prn. documented in this encounter Plan of Treatment Scheduled Orders Name Type Priority Associated Diagnoses Orde r Schedule CT CHEST W CONTRAST Imaging Routine Nodule of right lung 1 Occurrences starting 08/13/2020 until 08/13/2021 documented as of this encounter Goals Goal [...] documented as of this encounter Results * LIPID PANEL REFLEX (11/05/2020 10:24 AM EST) Cholesterol 163 <200 mg/dL 11/05/2020 3:11 PM EST [facility] [employer] Comment: < 200 ?Desirable 200 - 239 ? Borderline High >= 240 ?High Triglyceride 72 <150 mg/dL 11/05/2020 3:11 PM EST [facility] Comment: < 150 ? Normal 150 - 199 ?Borderline High 200 - 499 ?High ??>= 500 ? Very High HDL 62 >=40 mg/dL 11/05/2020 3:11 PM EST [facility] Comment: ??> 60 ?Optimal 40 - 60 ?Acceptable ?? < 40 ?Low LDL Calculated 87 <100 mg/dL 11/05/2020 3:11 PM EST [facility] Non-HDL-C Calculated 101 <=129 mg/dL 11/05/2020 3:11 PM EST [facility] Comment: <130 ?Desirable 130-159 Above Desirable 160-189 Borderline High 190-219 High >= 220 ??Very High Fasting Specimen? Yes None 021 3:11 PM EST [facility] Blood VENOUS BLOOD / Unknown Venipuncture / Unknown 11/05/2020 10:24 AM EST 11/05/2020 10:24 AM EST us Dora Hernandez MD CHEMISTRY ORDERABLES Final Resu lt [facility] [address] [facility] , [place] [address] * (ABNORMAL) COMPREHENSIVE METABOLIC PANEL (11/05/2020 10:24 [...] 11/05/2020 3:11 PM EST [facility] GFR Afr Am 67 >=60 mL/min/1.7 3 m2 11/05/2020 3:11 PM EST [facility] GFR Non Afr Am 58(L) >=60 mL/min/1.7 3 m2 11/05/2020 3:11 PM EST [facility] Comment: This estimated GFR was [...] Final Resu lt [facility] [address] [place] [address] , [place] [address] [place] [address] * (ABNORMAL) CBC (11/05/2020 10:24 AM EST) [...] Res ult [facility] [address] [place] [address] documented in this encounter Visit Diagnoses Diagnosis Medicare annual wellness visit, subsequent- Primary Routine general medical examination at a health care facility Essential hypertension Unspecified essential hypertension Hypercholesteremia Pure hypercholesterolemia Flu vaccine need Need for prophylactic vaccination and inoculation against influenza Anxiety disorder, unspecified type Nodule of right lung Solitary pulmonary nodule Uses hearing aid Obesity, Class I, BMI 30-34.9 Obesity, unspecified documented in this encounter Discontinued Medications Medication Sig Discontinue Reason Start Date End Da te cranberry fruit extract (CRANBERRY ORAL) Take by mouth daily. Patient discharge 08/13/2020 diclofenac (VOLTAREN) 1 % Top GelIndications:Primary osteoarthritis of both knees Apply 2 g topically 4 times daily. DELETE-Duplicate 06/19/2019 08/13/2020 losartan-hydrochlorothiaz fadia (HYZAAR) 50-12.5 mg Oral Tablet TAKE 1 TABLET EVERY DAY Patient discharge 12/06/2018 08/13/2020 LORazepam (ATIVAN) 0.5 mg Oral TabletIndications:Anxiety disorder, unspecified type Take 1 Tab by mouth every 8 hours as needed for Anxiety. Reorder 10/03/2019 08/13/2020 documented as of this encounter Orders Immunization/Injection Count Last Ordered Date First Ordered Date QUADRIVALENT FLUZONE HIGH DOSE 1 08/13/2020 Nursing Count Last Ordered Date First Orde red Date DISCUSSED WITH PATIENT 1 08/13/2020 STABLE, PATIENT HAS NO ISSUES 1 08/13/2020 documented in this encounter Additional Health Concerns Assessment Noted Time A fall risk assessment has been complete d for the patient 10/03/2019 8:29 AM EST documented as of this encounter Care Teams Mill Operator Head Relationship Specialty Start Date End Date Dora Hernandez MD [address] [facility] [address] [place] [id number] PCP - General Family Medicine 12/24/15 documented as of this encounter
--- OUTSIDE RECORDS SUMMARY | 2024-09-12 12:46 | XMS_ITS | Encounter Summary ---
Author Organization [place] [address] Care Team Providers Care Back Shoe Cutter Name Role Phone Dora Hernandez MD Primary Care Provider [phone] Reason for Visit * Reason Onset Date Comments Medication Management 05/09/2020 Encounter Details Date Type Department Care Team (Late st Contact Info) Description 05/09/2020 Telephone [facility] Gloria Leon [address] [place] [address] Dora Hernandez MD [address] [place] [address] Medication Management Social History Tobacco Use Types Packs/Day Years [...] mouth 2 times daily. 120 Cap 2 05/13/2020 0 rosuvastatin (CRESTOR) 5 mg Oral TabletIndications:Hy percholesteremia Take 1 Tab by mouth nightly. 90 Tab 2 05/09/2020 1 documented in this encounter Miscellaneous Notes * Telephone Encounter - Dora Hernandez MD - 05/13/2020 2:54 PM EDT Sent to pharmacy. * Telephone Encounter - Ree Stout CCMA - 05/13/2020 2:46 PM EDT Fill- 2019, 5rf OV-01/23/2020 DESTINEE AE- 05/13/2020 CSTA-12/01/16 BENOZ-12/01/16 SOAPP-12/01/16 * Telephone Encounter - Donnell Kelly - 05/13/2020 2:35 PM EDT Medication Refill Who is requesting the refill: Patient Medication(s)Name/Dosage/Frequency: gabapentin (NEURONTIN) 100 mg Oral Capsule [[id number]] Did patient contact the pharmacy first: N/A How many days left on hand: unaware Future appt date w/ prescribing provider: no future appt Pharmacy & Location: [facility] [id number] - [address] [place] [address] Additional Notes: * Telephone Encounter - Ree Stout CCMA - 05/09/2020 11:49 AM EDT LMVM advised pt to cb. Gabapentin is controlled and we [facility]. I advised on pts VM the risks of sending a controlled rx through to [facility], and that we do not recommend. * Telephone Encounter - Connie Stahl - 05/09/2020 11:34 AM EDT Pt is calling in regards to Rx: rosuvastatin (CRESTOR) 5 mg Oral Tablet 90 Tab 2 01/16/2020 Sig - Route: Take 1 Tab by mouth nightly. - Oral Sent to pharmacy as: rosuvastatin 5 mg tablet (CRESTOR) Cosign for Ordering: Accepted by Dora Hernandez MD on 01/16/2020 ??1:16 PM E-Prescribing Status: Receipt confirmed by pharmacy (01/16/2020 ??1:01 PM EDT) gabapentin (NEURONTIN) 100 mg Oral Capsule 120 Cap 5 2019 Sig - Route: Take 2 Caps by mouth 2 times daily. - Oral Sent to pharmacy as: gabapentin 100 mg capsule (NEURONTIN) E-Prescribing Status: Receipt confirmed by pharmacy (2019 ??9:27 AM EST) Pt stated that they would like to have both Rx sent to: [facility] [place] [address] [address] [facility] [phone] Not [place]. Please include the refills on Rx's. documented in this encounter Plan of Treatment [...] encounter Visit Diagnoses Diagnosis Hypercholesteremia Pure hypercholesterolemia Peripheral polyneuropathy Unspecified hereditary and idiopathic peripheral neuropathy documented in this encounter Discontinued Medications Medication Sig Discontinue Reason Start Date End Da te rosuvastatin (CRESTOR) 5 mg Oral TabletIndications:Hyperchol esteremia Take 1 Tab by mouth nightly. Reorder 01/16/2020 05/09/2020 gabapentin (NEURONTIN) 100 mg Oral CapsuleIndications:Peripher al polyneuropathy Take 2 Caps by mouth 2 times daily. Reorder 2019 05/13/2020 documented as of this encounter Additional Health Concerns Assessment Noted Time A fall risk assessment has been complete d for the patient 10/03/2019 8:29 AM EST documented as of this encounter Care Teams Back Shoe Cutter Relationship Specialty Start Date End Date Dora Hernandez MD [address] [facility] [place] [address] PCP - General Family Medicine 12/24/15 documented as of this encounter
--- OUTSIDE RECORDS SUMMARY | 2024-09-12 12:46 | XMS_ITS | Encounter Summary ---
Author Organization [place] [address] Care Team Providers Care Mill Operator Name Role Phone Dora Hernandez MD Primary Care Provider [phone] Reason for Visit * Reason Onset Date Comments Results 09/06/2019 blwk 08/31/19 Encounter Details Date Type Department Care Team (Late Contact Info) Description 09/06/2019 Telephone [facility] Gloria Leon [address] [facility] [place] [address] Dora Hernandez MD [address] [facility] [place] [address] Results ([facility] 08/31/19) Social History Tobacco Use Types Packs/Day Years [...] Telephone Encounter - Dora Hernandez MD - 09/08/2019 3:23 PM EST I called and spoke to pt's . * Telephone Encounter - Mignon Oswald - 09/06/2019 9:44 AM EST Pt's is returning phone call about blwk results for pt done on 08/31/19. Pt's aware is not in Office today. Pt ok with waiting for tomorrow. documented in this encounter Plan of Treatment Not on file documented as of this encounter Goals Goal Patient Goal Type Associated Problems Recent Progress Patient-Stated? Author Blood Pressure < 140/90 Blood Pressure 110/78(2023 11:26 AM EDT) No Ember Canela, RN Maintain a healthy diet, exercise regularly and maintain an ideal body weight General No Kim Soils RMA Maintain a healthy diet, exercise regularly [...] of this encounter Care Teams Mill Operator Relationship Specialty Start Date End Date Dora Hernandez MD [address] [place] [address] PCP - General Family Medicine 12/24/15 documented as of this encounter
--- OUTSIDE RECORDS SUMMARY | 2024-09-12 12:46 | XMS_ITS | Encounter Summary ---
Author Organization [place] [address] Care Team Providers Care Web Press Operator Assistant Name Role Phone Dora Hernandez MD Primary Care Provider [phone] Reason for Visit * Reason Comments Medication Refill Encounter Details Date Type Department Care Team (Late st Contact Info) Description 03/18/2020 Refill [facility] Gloria Leon [address] [place] [address] Dora Hernandez MD [address] [place] [address] Medication Refill Social History Tobacco [...] encounter Miscellaneous Notes * Telephone Encounter - Dior Pereira CPhT - 03/19/2020 3:12 PM EDT Losartan- Medication refill request deferred to office staff. Jesse Reason: Medication discontinued or inactive on the medication list documented in this encounter Plan of Treatment [...] documented as of this encounter Care Teams Web Press Operator Assistant Relationship Specialty Start Date End Date Dora Hernandez MD [address] [facility] [place] [phone] PCP - General Family Medicine 12/24/15 documented as of this encounter
--- OUTSIDE RECORDS SUMMARY | 2024-09-12 12:46 | XMS_ITS | Encounter Summary ---
Author Organization [facility] [place] [address] Care Team Providers Care Clinical Biochemical Geneticist Name Role Phone Dora Hernandez MD Primary Care Provider [phone] Encounter Details Date Type Department Care Team (Latest Contact Info) Description 01/23/2020 Travel Social History Tobacco Use Types Packs/Day [...] as of this encounter Care Teams Clinical Biochemical Geneticist Relationship Specialty Start Date End Date Dora Hernandez MD [address] [place] [address] PCP - General Family Medicine 12/24/15 documented as of this encounter
--- OUTSIDE RECORDS SUMMARY | 2024-09-12 12:46 | XMS_ITS | Encounter Summary ---
Author Organization [place] [address] Care Team Providers Care Head Of Global Strategic Partnerships Name Role Phone Dora Hernandez MD Primary Care Provider [phone] Reason for Visit * Reason Onset Date Comments Central Patient Navigator Outreach 08/08/2020 awv questionnaire Encounter Details Date Type Department Care Team (Late st Contact Info) Description 08/08/2020 Patient Outreach [facility] [address] [place], [place] [id number] Dora Hernandez MD [address] [facility] [place] [address] Central Patient Navigator Outreach (awv questionnaire) Social History Tobacco Use Types Packs/Day Years [...] have Coronavirus / COVID-19? No / Unsure 07/26/2020 1:27 PM EDT documented as of this encounter Functional Status * Is the person deaf or does he/she have serious difficulty hearing? Answer Date of Assessment Author No 08/31/2019 10:12 AM Ree Haddad CCMMalcolm * Is the person blind or does he/she have serious difficulty seeing even when wearing glasses? Answer Date of Assessment Author No 08/31/2019 10:12 AM Ree Haddad CCMMalcolm * Does this person have serious difficulty walking or climbing stairs? Answer Date of Assessment Author No 08/31/2019 10:12 AM Ree Haddad CCMMalcolm * Does this person have difficulty dressing or bathing? Answer Date of Assessment Author No 08/31/2019 10:12 AM Ree Haddad CCMMalcolm * Because of a physical, mental or emotional condition, does this person have difficulty doing errands alone such as visiting a doctor's office or shopping? Answer Date of Assessment Author No 08/31/2019 10:12 AM Ree Haddad CCMMalcolm documented as of this encounter Mental Status * Because of a physical, mental or emotional condition, does this person have serious difficulty concentrating, remembering or making decisions? Answer Entry Date Author No 08/31/2019 10:12 AM Ree Haddad CCMMalcolm documented in this encounter Progress Notes * Zari Zafar - 08/08/2020 4:00 PM EDT Patient Outreach: Pre-Visit Questionnaires and Care Gap Outreach Attempt Count: 1st Care Gaps Addressed materials and corrosion engineer: Flu Shot and Medicare Questionnaire Outcome: said she speaks for her , did not release any info, advised will talk when we see him. documented in this encounter Plan of Treatment [...] documented as of this encounter Care Teams Head Of Global Strategic Partnerships Relationship Specialty Start Date End Date Dora Hernandez MD [address] [facility] [place] [address] PCP - General Family Medicine 12/24/15 documented as of this encounter
--- OUTSIDE RECORDS SUMMARY | 2024-09-12 12:46 | XMS_ITS | Encounter Summary ---
Author Organization [place] [address] Care Team Providers Care Laminating Machine Operator Helper Name Role Phone Dora Hernandez MD Primary Care Provider [phone] Reason for Visit * Reason Comments Medication Refill Encounter Details Date Type Department Care Team (Late st Contact Info) Description 12/13/2019 Refill [facility] [address] [place] [address] Dora Hernandez MD [address] [place] [address] Medication Refill Social History Tobacco [...] documented as of this encounter Care Teams Laminating Machine Operator Helper Relationship Specialty Start Date End Date Dora Hernandez MD [address] [facility] [phone] PCP - General Family Medicine 12/24/15 documented as of this encounter
--- OUTSIDE RECORDS SUMMARY | 2024-09-12 12:46 | XMS_ITS | Encounter Summary ---
Author Organization [place] [address] Care Team Providers Care Stripper Latex Name Role Phone Dora Hernandez MD Primary Care Provider [phone] Reason for Visit * Reason Comments Medication Refill Encounter Details Date Type Department Care Team (Late st Contact Info) Description 10/27/2019 Refill [facility] [address] [facility] [place] [address] Dora Hernandez MD [address] [place] [address] Medication Refill Social History Tobacco [...] documented as of this encounter Care Teams Stripper Latex Relationship Specialty Start Date End Date Dora Hernandez MD [address] [facility] [phone] PCP - General Family Medicine 12/24/15 documented as of this encounter
--- OUTSIDE RECORDS SUMMARY | 2024-09-12 12:46 | XMS_ITS | Encounter Summary ---
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, mass right shoulder, lipoma on back * Consultation (Routine) - Closed Specialty Diagnoses / Procedures Referred By Hal thompson Referred To Contact General Surgery Diagnoses Mass of skin of right shoulder Lipoma of back Dora Hernandez MD [address] [facility] [place] [address] Phone: tel: fax: Modesto Caputo MD Phone: tel: fax: Referral ID Status Reason Start Date Expiration Date Visits Re quested Visits Authorized [id number] Closed 06/19/2019 06/18/2020 99 99 Encounter Details Date Type Department Care Team (Late st Contact Info) Description 07/27/2019 9:30 AM EDT Office Visit [facility] [address] [place] [address] Modesto Caputo MD [address] [place] [address] Lipoma of back (Primary Dx) Social History Tobacco Use Types [...] Sign Reading Time Taken Comments Blood Pressure 142/72 07/27/2019 9:55 AM EDT Pulse 64 07/27/2019 9:55 AM EDT Temperature - - Respiratory Rate - - Oxygen Saturation - - Inhaled Oxygen Concentration - - Weight 116.1 kg (256 lb) 07/27/2019 9:55 AM EDT Height 190.5 cm (6' 3 ) 07/27/2019 9:55 AM EDT Body Mass Index 32 07/27/2019 9:55 AM EDT documented in this encounter Progress Notes * Modesto Caputo MD - 07/27/2019 9:30 AM EDT Subjective Subjective: Patient ID: Jac Garvin is a 78 y.o. male. Chief Complaint Patient presents with ??? 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 There were no changesexcept as noted. Asked to see this patient in consultation by Dr. Hernandez. 78-year-old male with bilateral shoulder masses. Both of been present for over 10 years. Slowly increasing in size. Some mild pain and tenderness to both sides. No history of infection or requirement of drainage. No Known Allergies Current Outpatient Medications: ??? amLODIPine (NORVASC) 10 mg Oral Tablet, Take 1 Tab by mouth daily., Disp: 30 Tab, Rfl: 0 ??? aspirin (ASPIRIN LOW DOSE) 81 mg Oral Tablet, Delayed Release (E.C.), Take 1 Tab by mouth daily., Disp: , Rfl: ??? Cod Liver Oil Oral Oil, Take by mouth daily., Disp: , Rfl: ??? cranberry fruit extract (CRANBERRY ORAL), Take by mouth daily., Disp: , Rfl: ??? diclofenac (VOLTAREN) 1 % Top Gel, Apply 2 g topically 4 times daily., Disp: 100 g, Rfl: 2 ??? fluticasone (FLONASE) 50 mcg/actuation Nasl [place], Suspension, 2 Sprays by Nasal route daily., Disp: 1 Bottle, Rfl: 5 ??? Lactobac no.41/Bifidobact no.7 (PROBIOTIC-10 ORAL), Take [...] mg Oral Tablet Sustained Release 24 hr, Take 1 Tab by mouth daily., Disp: 90 Tab, Rfl: 3 ??? MULTI-VITAMIN ORAL, Take by mouth daily., Disp: , Rfl: ??? vit A/vit C/vit E/zinc/copper (ICAPS AREDS ORAL), Take by mouth daily., Disp: , Rfl: Patient Active Problem List Diagnosis ??? Hyponatremia ??? Recurrent acute otitis media of both ears ??? Non morbid obesity due to excess calories ??? Elevated blood sugar ??? Essential hypertension ??? Pulmonary nodule, right ??? Former smoker ??? Uses hearing aid ??? Lipoma of back ??? Mass of skin of right shoulder ??? Primary osteoarthritis of both knees Social History Socioeconomic History ??? Marital status: Spouse name: Not on file ??? Number of children: Not on file ??? Years of education: Not on file ??? Highest education level: Not on file Occupational History ??? Not on file Social Needs ??? Financial resource strain: Not on file ??? Food insecurity: Worry: Not on file Inability: Not on file ??? Transportation needs: Medical: Not on file Non-medical: Not on file Tobacco Use ??? Smoking status: Former Smoker Packs/day: 2.00 Years: 50.00 Pack years: 100.00 Types: Pipe Last attempt to quit: 01/03/2016 Years since quittin.5 ??? Smokeless tobacco: Never Used Substance and Sexual Activity ??? Alcohol use: Yes Alcohol/week: 0.0 oz Types: 2 - 3 Cans of beer per week Comment: beer and wine ??? Drug use: No ??? Sexual activity: Not on file Lifestyle ??? Physical activity: Days per week: Not on file Minutes per session: Not on file ??? Stress: Not on file Relationships ??? Social connections: Talks on phone: Not on file Gets together: Not on file Attends caodaism service: Not on file Active member of club or organization: Not on file Attends meetings of clubs or organizations: Not on file Relationship status: Not on file ??? Intimate partner violence: Fear of current or ex partner: Not on file Emotionally abused: Not on file Physically abused: Not on file Forced sexual activity: Not on file Other Topics Concern ??? Not on file Social History Narrative ??? Not on file Family History Problem Relation Age of Onset [...] Neg Hx ??? Stomach Cancer Neg Hx Review of Systems Constitutional: Negative for activity change, appetite change, chills and fever. HENT: Negative for congestion, nosebleeds and sore throat. Eyes: Negative for redness and visual disturbance. Respiratory: Negative for cough, shortness of breath and wheezing. Cardiovascular: Negative for chest pain, palpitations and leg swelling. Gastrointestinal: Negative for abdominal distention, abdominal pain and blood in stool. Genitourinary: Negative for dysuria, hematuria and urgency. Musculoskeletal: Negative for arthralgias, back pain and neck pain. Skin: Negative for color change, pallor and rash. Neurological: Negative for tremors, seizures and syncope. Hematological: Negative for adenopathy. Does not bruise/bleed easily. Objective Objective: Vitals: 07/27/19 0955 BP: 142/72 Pulse: 64 Weight: 256 lb (116.1 kg) Height: 6' 3 (1.905 m) Body mass index is 32 kg/m??. Physical Exam Constitutional: Appearance: He is well-developed. HENT: Head: Normocephalic and atraumatic. Eyes: Conjunctiva/sclera: Conjunctivae normal. Pupils: Pupils are equal, round, and reactive to light. Neck: Musculoskeletal: Normal range of motion. Cardiovascular: Rate and Rhythm: Normal rate and regular rhythm. Pulmonary: Effort: Pulmonary effort is normal. Breath sounds: Normal breath sounds. Abdominal: General: Bowel sounds are normal. Palpations: Abdomen is soft. Musculoskeletal: Normal range of motion. Comments: Left shoulder mass, fixed, soft, approximately 10 to 12 cm, nontender Right shoulder mass, fixed, firm, approximately 8 to 10 cm, nontender Skin: General: Skin is warm and dry. Neurological: Mental Status: He is alert and oriented to person, place, and time. Psychiatric: Behavior: Behavior normal. Thought Content: Thought content normal. Assessment and Plan: Impression: Left shoulder lipoma, right shoulder sebaceous cyst Plan: 1. Discussed options to include observation versus resection. Patient wishes to proceed with surgery sometime in October. He will return to see me sometime in September. 2. Discussed risk of infection requiring drainage. I have asked him to contact me directly if any of these occur. No follow-ups on file. documented in this encounter Miscellaneous Notes * Patient Instructions - Halina Peoples RMA - 07/27/2019 9:30 AM EDT You may be contacted by mail or e-mail to participate in a patient satisfaction survey regarding your office visit today. We value your opinion and depend on your feedback to make improvements and provide you with the best possible experience while receiving high quality medical treatment. Your time in completing this survey is greatly appreciated. documented in this encounter Plan of Treatment [...] as of this encounter Visit Diagnoses Diagnosis Lipoma of back- Primary Lipoma of other specified sites documented in this encounter Historical Medications * This list may reflect changes made after this encounter. Cod Liver Oil Oral Oil Take by mouth daily. 12/16/2022 cranberry fruit extract (CRANBERRY ORAL) Take by mouth daily. 08/13/2020 MULTI-VITAMIN ORAL Take by mouth daily. 12/16/2022 vit A/vit C/vit E/zinc/copper (ICAPS AREDS ORAL) Take by mouth daily. 10/07/2023 Lactobac no.41/Bifidobact no.7 (PROBIOTIC-10 ORAL) Take by mouth. 08/19/2020 added in this encounter Additional Health Concerns Assessment Noted Time A fall risk assessment has been complete d for the patient 12/01/2016 9:10 AM EST documented as of this encounter Care Teams Corporate Executive Chef Relationship Specialty Start Date End Date Dora Hernandez MD [address] [facility] [place] [phone] PCP - General Family Medicine 12/24/15 documented as of this encounter
--- OUTSIDE RECORDS SUMMARY | 2024-09-12 12:46 | XMS_ITS | Encounter Summary ---
Author Organization [place] [address] Care Team Providers Care Drop Wire Builder Name Role Phone Dora Hernandez MD Primary Care Provider [phone] Encounter Details Date Type Department Care Team (Late st Contact Info) Description 01/23/2020 10:40 AM EDT Office Visit [facility] [address] [facility] [place] [address] Dora Hernandez MD [address] [facility] [place] [address] Gross hematuria (Primary Dx); BPH without urinary obstruction Social History Tobacco Use Types Packs/Day Years [...] have Coronavirus / COVID-19? No / Unsure 03/27/2020 11:14 AM EDT documented as of this encounter [...] Date ciprofloxacin HCl (CIPRO) 500 mg Oral TabletIndications:G ross hematuria Take 1 Tab by mouth 2 times daily for 10 days. 20 Tab 01/23/2020 02/02/2020 documented in this encounter Progress Notes * Dora Hernandez MD - 01/23/2020 10:40 AM EDT Patient presented today for routine care follow-up through a telephone visit. Patient is aware thatthis visit/encounter is replacing a face to face office service and is billable under applicable telephone visit billing rules per their insurance and is being imitated by the patient either through a direct scheduled telephone visit or after hours page to the office. Patient is aware that a telephone visit does not replace a [id number] exam and further services may be necessary. I advised the patient that we are conducting his telephone visit through our office in a private space. Patient had no questions prior to initiation of the visit and provided verbal consent to proceed. The length of time of this visit/call was 6-7 minutes. HPI: Pt c/o blood in urine last night. Urine clearing up this AM. No painful urination. No fever. No n/v. No abd or back pain. Slow urinary stream and dribbles at times. He takes flomax. No dizziness or lightheadedness. Pt is [place] so his helped during this telephone visit. Review of Systems Exam: Constitutional: Doesn't sound in acute distress, conversational, alert and oriented to topics of conversation. HENT: Voice normal w/o hoarseness Respiratory: No audible shortness of breath, wheezing, or respiratory distress. Psych: Normal conversation, mood, and thought content. Appropriate speech. No emotional lability. Assessment Diagnoses and all orders for this visit: Gross hematuria - ciprofloxacin HCl (CIPRO) 500 mg Oral Tablet; Take 1 Tab by mouth 2 times daily for 10 days. Dispense: 20 Tab; Refill: 0 BPH without urinary obstruction treat for possible prostatitis. Hold ASA for now. Avoid NSAID. Tylenol prn. Pt and were advised on s/sx on when to call back. documented in this encounter Miscellaneous Notes * Addendum Note - Joselin Main RN - 01/23/2020 10:40 AM EDTAddended by: JOSELIN MAIN on: 03/29/2020 03:54 PM Modules accepted: Level of Service documented in this encounter Plan of Treatment [...] as of this encounter Visit Diagnoses Diagnosis Gross hematuria- Primary BPH without urinary obstruction Hypertrophy of prostate without urinary obstruction and other lower urinary tract symptoms (LUTS) documented in this encounter Additional Health Concerns Assessment Noted Time A fall risk assessment has been complete d for the patient 10/03/2019 8:29 AM EST documented as of this encounter Care Teams Drop Wire Builder Relationship Specialty Start Date End Date Dora Hernandez MD [address] [place] [phone] PCP - General Family Medicine 12/24/15 documented as of this encounter
--- OUTSIDE RECORDS SUMMARY | 2024-09-12 12:46 | XMS_ITS | Encounter Summary ---
Author Organization [place] [address] Care Team Providers Care Cheese Processor Name Role Phone Dora Hernandez MD Primary Care Provider [phone] Reason for Visit * Reason Comments Medication Refill Encounter Details Date Type Department Care Team (Late st Contact Info) Description 07/28/2019 Refill [facility] [address] [place] [address] Dora Hernandez MD [address] [place] [address] Medication Refill Social History Tobacco Use Types Packs/Day Years Used Date Smoking Tobacco: Never Assessed Sex and Gender Information Value Date Recorded Sex Assigned at Not on file Legal Sex Male 2:45 AM EDT Gender Identity Not on file Sexual Orientation Not on file documented as of this encounter Ordered Prescriptions Prescription Sig Dispense Quantity Refills Last Filled Start Date End Date diclofenac (VOLTAREN) 1 % Top Gel APPLY 2 GRAMS TOPICALLY 4 TIMES DAILY. 100 g 2 07/28/2019 9 documented in this encounter Plan of Treatment [...] documented as of this encounter Care Teams Cheese Processor Relationship Specialty Start Date End Date Dora Hernandez MD [address] [place] [address] PCP - General Family Medicine 12/24/15 documented as of this encounter
--- OUTSIDE RECORDS SUMMARY | 2024-09-12 12:46 | XMS_ITS | Encounter Summary ---
Author Organization [facility] [place] [address] Care Team Providers Care Humidifier Maintenance Worker Name Role Phone Dora Hernandez MD Primary Care Provider [phone] Reason for Visit * Reason Onset Date Comments Visit Follow Up 09/07/2019 retruned phone c all Encounter Details Date Type Department Care Team (Late Contact Info) Description 09/07/2019 Telephone [facility] [address] [facility] [place] [address] Dora Hernandez MD [address] [facility] [place] [address] Visit Follow Up (retruned phone call) Social History Tobacco Use Types Packs/Day Years [...] 10:12 AM EST Ree Stout CCMA * Does this person have difficulty dressing or bathing? Answer Date of Assessment Author No 08/31/2019 10:12 AM EST Ree Stout CCMA * Because of a physical, mental [...] Telephone Encounter - Jennifer Garcia RMA - 09/09/2019 10:42 AM EST Spoke with patients . He has an appt on 09/[address] Hernandez will recollect at appt. * Telephone Encounter - Mignon Oswald - 09/07/2019 4:56 PM EST Jennifer Pt's is calling your back regarding the Urine Sample pt left was not labeled correctly. Pt's is wanting to speak with you. Pt's aware you are not in Office today. Please call documented in this encounter Plan of Treatment [...] documented as of this encounter Care Teams Humidifier Maintenance Worker Relationship Specialty Start Date End Date Dora Hernandez MD [address] [place] [address] PCP - General Family Medicine 12/24/15 documented as of this encounter
--- OUTSIDE RECORDS SUMMARY | 2024-09-12 12:46 | XMS_ITS | Encounter Summary ---
Author Organization [place] [address] Care Team Providers Care Soap Drier Operator Name Role Phone Dora Hernandez MD Primary Care Provider [phone] Reason for Visit * Reason Onset Date Comments Symptom Call 01/23/2020 Encounter Details Date Type Department Care Team (Late st Contact Info) Description 01/23/2020 Telephone [facility] [address] [facility] [place] [address] Dora Hernandez MD [address] [employer] [facility] [place] [address] Symptom Call Social History Tobacco Use Types Packs/Day Years [...] Telephone Encounter - Grace Dodd MA - 01/23/2020 8:37 AM EDT Pt scheduled at 1040 * Telephone Encounter - Dora Hernandez MD - 01/23/2020 8:29 AM EDT Pls sched telephone visit. Thanks. * Telephone Encounter - Connie Stahl - 01/23/2020 8:06 AM EDT Symptoms Call Who is reporting the symptoms: Other Pt What symptom(s) is the patient experiencing: Blood in Urine How long have symptoms been present: 1 day(s) ago Has the patient been seen for this: No If no, was an appointment/E-Visit offered/suggested? No, Unable to do vv Has the patient tried anything to relieve the symptoms and did it help: N/A If pain, what level on scale 1-10 (10 being the greatest): No Pain Desired Outcome: Rx, Something for UTI Pharmacy & Location:[facility] [address] [place] [phone] [facility] [phone] Additional Notes: Pt started to have blood in his urine yesterday morning. Please advise. documented in this encounter Plan of Treatment [...] documented as of this encounter Care Teams Soap Drier Operator Relationship Specialty Start Date End Date Dora Hernandez MD [address] [place] [address] PCP - General Family Medicine 12/24/15 documented as of this encounter
--- OUTSIDE RECORDS SUMMARY | 2024-09-12 12:46 | XMS_ITS | Encounter Summary ---
Author Organization [place] [address] Care Team Providers Care Environmental Sampling Technician Name Role Phone Dora Hernandez MD Primary Care Provider Reason for Visit * Reason Comments Medication Refill Encounter Details Date Type Department Care Team (Late st Contact Info) Description 03/02/2020 Refill [facility] [address] [place] [address] Dora Hernandez MD [address] [place] [address] Medication Refill Social History Tobacco [...] Telephone Encounter - Jeanna Vazquez CPhT - 03/04/2020 12:37 PM EDT Medication refill request deferred to office staff. Jesse Reason: Patient is not attributed to a PCP in this office documented in this encounter Plan of Treatment [...] documented as of this encounter Care Teams Environmental Sampling Technician Relationship Specialty Start Date End Date Dora Hernandez MD [address] [facility] [place] [phone] PCP - General Family Medicine 12/24/15 documented as of this encounter
--- OUTSIDE RECORDS SUMMARY | 2024-09-12 12:46 | XMS_ITS | Encounter Summary ---
Author Organization [place] [address] Care Team Providers Care Broom Stitcher Name Role Phone Dora Hernandez MD Primary Care Provider [phone] Reason for Visit * Reason Onset Date Comments Medication Refill 01/16/2020 rosuvastatin Encounter Details Date Type Department Care Team (Late st Contact Info) Description 01/16/2020 Tele[place] [facility] [place] [facility] [address] [facility] [place] [address] Dora Hernandez MD [address] [place] [address] Medication Refill (rosuvastatin) Social History Tobacco Use Types Packs/Day Years [...] End Date rosuvastatin (CRESTOR) 5 mg Oral TabletIndications:H ypercholesteremia Take 1 Tab by mouth nightly. 90 Tab 2 01/16/2020 05/09/2020 documented in this encounter Miscellaneous Notes * Telephone Encounter - Lamar Melendez - 01/16/2020 12:47 PM EDT Pt pharmacy is needing a 90 day supply for rosuvastatin. documented in this encounter Plan of Treatment [...] Da te rosuvastatin (CRESTOR) 5 mg Oral TabletIndications:Hyperc holesteremia TAKE ONE TABLET BY MOUTH ONCE NIGHTLY Reorder 12/27/2019 01/16/2020 documented as of this encounter Additional Health Concerns Assessment Noted Time A fall risk assessment has been complete d for the patient 10/03/2019 8:29 AM EST documented as of this encounter Care Teams Broom Stitcher Relationship Specialty Start Date End Date Dora Hernandez MD [address] [place] [address] PCP - General Family Medicine 12/24/15 documented as of this encounter
--- OUTSIDE RECORDS SUMMARY | 2024-09-12 12:46 | XMS_ITS | Encounter Summary ---
Author Organization [place] [address] Care Team Providers Care Decorating Inspector Name Role Phone Dora Hernandez MD Primary Care Provider [phone] Reason for Visit * Reason Comments Medication Refill Encounter Details Date Type Department Care Team (Late st Contact Info) Description 12/27/2019 Refill [facility] Gloria Leon [address] [place] [address] Dora Hernandez MD [address] [place] [address] Medication Refill Social History Tobacco [...] (CRESTOR) 5 mg Oral TabletIndications: Hypercholesteremia TAKE ONE TABLET BY MOUTH ONCE NIGHTLY 30 Tab 12/27/2019 0 documented in this encounter Miscellaneous Notes * Telephone Encounter - Ravi Odonnell CPhT - 12/27/2019 3:39 PM EST Medication Refill Protocol failed due to appointment. all source analyst Reason: Past follow-up date noted by provider. Provider wanted patient to follow-up around 01/02/20. Patient had appointment on 12/26/19 but associated diagnosis not assessed. all source analyst Action: Patient given erica 30 day supply of medication Routed to office staff for outreach to schedule appointment. documented in this encounter Plan of Treatment [...] olesteremia Take 1 Tab by mouth nightly. 10/03/2019 12/27/2019 documented as of this encounter Additional Health Concerns Assessment Noted Time A fall risk assessment has been complete d for the patient 10/03/2019 8:29 AM EST documented as of this encounter Care Teams Decorating Inspector Relationship Specialty Start Date End Date Dora Hernandez MD [address] [facility] [place] [address] PCP - General Family Medicine 12/24/15 documented as of this encounter
--- OUTSIDE RECORDS SUMMARY | 2024-09-12 12:46 | XMS_ITS | Encounter Summary ---
Author Organization [place] [address] Care Team Providers Care White Lead Filterer Name Role Phone Dora Hernandez MD Primary Care Provider [phone] Reason for Visit * Reason Onset Date Comments Labs Only 08/31/2019 Encounter Details Date Type Department Care Team (Late st Contact Info) Description 08/31/2019 Telephone [facility] [place] [facility] [address] [facility] [place] [address] Dora Hernandez MD [address] [address] [facility] [place] [place] [address] Labs Only Social History Tobacco Use Types Packs/Day Years [...] Telephone Encounter - Jennifer Garcia RMA - 09/06/2019 3:22 PM EST VM left advising patient uds need to be recollected. * Telephone Encounter - Lamar Melendez - 08/31/2019 2:13 PM EST Central processing called needing a recollet for pt. There were no identifiers on specimen. documented in this encounter Plan of Treatment [...] documented as of this encounter Care Teams White Lead Filterer Relationship Specialty Start Date End Date Dora Hernandez MD [address] [place] [address] PCP - General Family Medicine 12/24/15 documented as of this encounter
--- OUTSIDE RECORDS SUMMARY | 2024-09-12 12:46 | XMS_ITS | Encounter Summary ---
Author Organization [place] [address] Care Team Providers Care Oxide Furnace Tender Name Role Phone Dora Hernandez MD Primary Care Provider [phone] Reason for Visit * Reason Comments Nail Problem Right great toenail fell off, Left 2nd toe discoloration * In Office Procedure (Routine) - Closed Specialty Diagnoses / Procedures Referred By Hal thompson Referred To Contact Core Worker-Surgery, Foot & Ankle / Podiatry Diagnoses Pain in right toe(s) Cellulitis of right toe Pain in left toe(s) sore toe, nail coming off Procedures MI REMOVAL OF NAIL PLATE MI REMOVE ADDITIONAL NAIL PLATE Cristhian Latif DPM [address] [place] [address] Phone: tel: fax: Cristhian Latif DPM [address] [place] [address] Phone: tel: fax: Referral ID Status Reason Start Date Expiration Date Visits Re quested Visits Authorized [id number] Closed 07/13/2019 08/12/2019 1 1 Encounter Details Date Type Department Care Team (Late st Contact Info) Description 07/13/2019 9:00 AM EDT Office Visit [facility] [address] [place], [place] [id number] Cristhian Latif DPM [address] [place] [phone] Pain in toes of both feet (Primary Dx); Contusion of toenail, unspecified laterality, initial encounter; Paronychia of great toe of right foot Social History Tobacco Use Types Packs/Day Years [...] Sign Reading Time Taken Comments Blood Pressure - - Pulse - - Temperature - - Respiratory Rate - - Oxygen Saturation - - Inhaled Oxygen Concentration - - Weight 115.7 kg (255 lb) 07/13/2019 9:24 AM EDT Height 190.5 cm (6' 3 ) 07/13/2019 9:24 AM EDT Body Mass Index 31.87 07/13/2019 9:24 AM EDT documented in this encounter Progress Notes * Cristhian Latif DPM - 07/13/2019 9:00 AM EDT Subjective: Patient ID: Jac Garvin is a 78 y.o. male. Chief Complaint: Nail Problem (Right great toenail fell off, Left 2nd toe discoloration) HPI 78 y.o. male complains of painful toenails of both feet. His right great toenail fell off this morning after his shower. Left and right second toenail are discolored and thick. Saw his PCP for the issues. She gave him an antibiotic. Please call follow-up. Is very active. Cannot remember any specific trauma. Present now for several months. Great toenail was loose and painful bother until he came off in the shower this morning. Past Medical History: Diagnosis Date ??? Hypertension ??? Tobacco use 12/23/2015 Outpatient Medications Marked as Taking for the 07/13/19 encounter (Office Visit) with Cristhian Latif DPM Medication Sig Dispense Refill ??? amLODIPine (NORVASC) 10 mg Oral Tablet Take 1 Tab by mouth daily. 30 Tab 0 ??? aspirin (ASPIRIN LOW DOSE) 81 mg Oral Tablet, Delayed Release (E.C.) Take 1 Tab by mouth daily. ??? diclofenac (VOLTAREN) 1 % Top Gel Apply 2 g topically 4 times daily. 100 g 2 ??? fluticasone (FLONASE) 50 mcg/actuation Nasl [place], Suspension 2 Sprays by Nasal route daily. 1 Bottle 5 ??? LORazepam (ATIVAN) 0.5 mg Oral Tablet Take 1 Tab by mouth every 8 hours as needed for Anxiety. 30 Tab 0 ??? losartan (COZAAR) 50 mg Oral Tablet Take 1 Tab by mouth daily. 90 Tab 3 ??? metoprolol succinate ER (TOPROL-XL) 100 mg Oral Tablet Sustained Release 24 hr Take 1 Tab by mouth daily. 90 Tab 3 Review of Systems Constitutional: Positive for activity change. HENT: Positive for hearing loss. Eyes: Positive for visual disturbance. Respiratory: Negative for chest tightness and shortness of breath. Cardiovascular: Positive for leg swelling. Negative for chest pain. Musculoskeletal: Positive for arthralgias and back pain. Negative for neck pain and neck stiffness. Neurological: Positive for light-headedness. Negative for dizziness, facial asymmetry and headaches. Hematological: Bruises/bleeds easily. Objective: Vitals: 07/13/19 0924 Weight: 255 lb (115.7 kg) Height: 6' 3 (1.905 m) Body mass index is 31.87 kg/m??. Physical Exam Constitutional: Appearance: Normal appearance. He is well-developed. HENT: Head: Normocephalic and atraumatic. Cardiovascular: Rate and Rhythm: Normal rate and regular rhythm. Pulses: Dorsalis pedis pulses are 2+ on the right side and 2+ on the left side. Posterior tibial pulses are 2+ on the right side and 2+ on the left side. Pulmonary: Effort: Pulmonary effort is normal. Skin: General: Skin is warm and dry. Neurological: Mental Status: He is alert and oriented to person, place, and time. Sensory: No sensory deficit. Gait: Gait normal. Deep Tendon Reflexes: Reflex Scores: Patellar reflexes are 2+ on the right side and 2+ on the left side. Achilles reflexes are 2+ on the right side and 2+ on the left side. Psychiatric: Behavior: Behavior normal. Thought Content: Thought content normal. Judgement: Judgment normal. Assessment and Plan: Jac was seen today for nail problem. Diagnoses and all orders for this visit: Pain in toes of both feet - MI REMOVAL OF NAIL PLATE - Cancel: MI REMOVE ADDITIONAL NAIL PLATE - MI REMOVE ADDITIONAL NAIL PLATE Contusion of toenail, unspecified laterality, initial encounter Comments: b/l 2nd right great Orders: - MI REMOVAL OF NAIL PLATE - Cancel: MI REMOVE ADDITIONAL NAIL PLATE - MI REMOVE ADDITIONAL NAIL PLATE Paronychia of great toe of right foot Right great toenail has some past residual paronychia. Daily antibiotic ointment and Band-Aid for a week should resolve this. I did not need local anesthesia but basically evulsed 95 to 100% of the second toenail bilateral asit was nail was just attached by the proximal medial nail fold each. Tolerated this well. Daily local care here for 1 week. Should resolve. Return if symptoms worsen or fail to improve. Note written by HAIM Sanford acting as scribe for Cristhian Latif DPM. I have reviewed this note and it accurately reflects my work and decisions made during this visit Cristhian Latif DPM. The following was discussed with Mr. Garvin during today's visit: ?? The importance of good blood pressure control to prevent cardiovascular and end organ complications. Recommended follow up with PCP to address abnormal elevation noted today. documented in this encounter Miscellaneous Notes * Patient Instructions - Kim Lancaster RMA - 07/13/2019 9:00 AM EDT Images from the original note were not included. Patient Education Hand Washing Germs such as bacteria, viruses, and parasites are found everywhere. They can be in the air and water. They can also be on surfaces like food, door handles, and your skin. Every day, your hands touchgerms. Many of these germs can make you and your family sick. Washing your hands is one of the bestways to lower your risk of getting and sharing germs. When should I wash my hands? You should wash your hands whenever you think they are dirty. You should also wash your hands: ?? Before: ? Visiting a baby or anyone with a weakened disease-fighting system (immunesystem). ? Putting in and taking out contact lenses. ?? After: ? Using the bathroom or helping someone else use the bathroom. ? Working or playing outside. ? Touching or taking out the garbage. ? Touching anything dirty around your home. ? Sneezing, coughing, or blowing your nose. ? Using a phone, including your mobile phone. ? Touching an animal, animal food, animal poop, or its toys or leash. ? Touching money. ? Using household apn or poisonous chemicals. ? Handling dirty clothes, bedding, or rags. ? Using public transportation. ? Going shopping, especially if you use a shopping cart or basket. ? Shaking hands. ? Handling livestock, such as cows or sheep. ?? Before and after: ? Preparing food. ? Eating. ? Visiting or taking care of someone who is sick. This includes touching used tissues, toys, and clothes. ? Changing a bandage (dressing). ? Taking care of an injury or wound. ? Giving or taking medicine. ? Preparing a bottle for a baby. ? Feeding a baby or young child. ? Changing a diaper. What is the right way to wash my hands? 1. Wet your hands with clean, running water. Turn off the water or move your hands out of the running water. 2. Apply liquid soap or bar soap to your hands. 3. Rub your hands together quickly to create lather. 4. Keep rubbing your hands together for at least 20 seconds. Thoroughly scrub all parts of your hands. This includes scrubbing under your fingernails and between your fingers. 5. Rinse your hands with clean, running water. Do this until all the soap is gone. 6. Dry your hands using an air dryer or a clean paper or cloth towel, or let your hands air-dry. Donot use your clothing or a dirty towel to dry your hands. If you are in a public restroom, use your towel: ?? To turn off the water faucet. ?? To open the bathroom door. How can I clean my hands if I do not have soap and water? If soap and clean water are not available, use a hand-washing wipe, spray, or gel (hand forest products gatherer).Use one that contains at least 60% alcohol. If you are handling food, gels are not recommended as areplacement for hand washing with soap and water. To use these products, follow the directions on the product, and: ?? Apply enough product to cover your hands. ?? Make sure you wipe, rub, or spray the product so that it reaches every part of your hands and wrists. Include the backs of your hands, between your fingers, and under your fingernails. ?? Rub the product onto your hands until it dries. Summary ?? Every day, your hands touch germs. Many of these germs can make you and your family sick. ?? Washing your hands is one of the best ways to lower your risk of getting and sharing germs. ?? If soap and clean water are not available, use a hand-washing wipe, spray, or gel. This information is not intended to replace advice given to you by your health care provider. Make sure you discuss any questions you have with your health care provider. Document Released: 09/23/2009 Document Revised: 07/20/2018 Document Reviewed: 07/20/2018 [employer] Patient Education ?? 2019 [employer]. Cristhian Nathan DPM or the staff today noticed that you have findings that are out of the recommendations that [facility] uses to optimize our patients health and outcomes. Today this was specific to: ?? Blood Pressure Control - It is well documented in clinical studies that reaching the target goals for management of this condition significantly decrease risk of developing or worsening end organ damage which includes the heart, kidneys, brain, eyes, and others. Cristhian Latif DPM strongly enc ourages you to schedule follow up with your regular provider for this issue as soon as you can. They can help you develop or adjust your plan to maximize your control of this issue and minimize your ongoing risk of serious complications that may impact your health and overall quality of life. We continue to strive as your health care community towards our goal of being the healthiest area in the country. Thank you for allowing us to help you get there. Sincerely. Cristhian Latif DPM and Staff documented in this encounter Plan of Treatment Scheduled Orders Name Type Priority Associated Diagnoses Orde r Schedule MI REMOVAL OF NAIL PLATE MI Charge Routine Contusion of toenail, unspecified laterality, initial encounter Pain in toes of both feet Ordered: 07/13/2019 MI REMOVE ADDITIONAL NAIL PLATE MI Charge Routine Contusion of toenail, unspecified laterality, initial encounter Pain in toes of both feet Ordered: 07/15/2019 documented as of this encounter Goals Goal [...] as of this encounter Visit Diagnoses Diagnosis Pain in toes of both feet- Primary Contusion of toenail, unspecified laterality, initial encounter Paronychia of great toe of right foot Onychia and paronychia of toe documented in this encounter Additional Health Concerns Assessment Noted Time A fall risk assessment has been complete d for the patient 12/01/2016 9:10 AM EST documented as of this encounter Care Teams Oxide Furnace Tender Relationship Specialty Start Date End Date Dora Hernandez MD [address] [place] [phone] PCP - General Family Medicine 12/24/15 documented as of this encounter
--- OUTSIDE RECORDS SUMMARY | 2024-09-12 12:46 | XMS_ITS | Encounter Summary ---
Author Organization [place] [address] Care Team Providers Care Bottom Presser Name Role Phone Dora Hernandez MD Primary Care Provider [phone] Encounter Details Date Type Department Care Team (Latest Contact Info) Description 10/03/2019 1:39 PM EST - 10/03/2019 11:59 PM EST Hospital [facility] [place] [address] Encounter for long-term current use of medication Discharge Disposition: Home or Self Care Social [...] Ree Haddad CCMA documented in this encounter Medications at Time of Discharge amLODIPine (NORVASC) 10 mg Oral TabletIndications: Essential hypertension Take 1 Tab by mouth daily. 30 Tab 10/03/2019 07/18/2020 metoprolol succinate ER (TOPROL-XL) 100 mg Oral Tablet Sustained Release 24 hr TAKE 1 TABLET EVERY DAY 90 Tab 12/01/2018 09/26/2020 rosuvastatin (CRESTOR) 5 mg Oral TabletIndications: Hypercholesteremia Take 1 Tab by mouth nightly. 30 Tab 2 10/03/2019 12/27/2019 tamsulosin (FLOMAX) 0.4 mg Oral CapsuleIndications :BPH without urinary obstruction Take 1 Cap by mouth nightly. 90 Cap 3 10/03/2019 07/18/2020 documented as of this encounter Discharge Disposition Disposition Code Departure Means Destination Home or Self Care documented in this encounter Plan of Treatment Not on file documented as of this encounter Goals Goal Patient Goal Type Associated Problems Recent Progress Patient-Stated? Author Blood Pressure < 140/90 Blood Pressure 110/78(2023 11:26 AM EDT) No Ember Caenla, RN Maintain a healthy diet, exercise regularly and maintain an ideal body weight General No Kim Solis RMA Maintain a healthy diet, exercise regularly and maintain an ideal body weight General No Aurelia Saldana RMA Stay Tobacco Free Lifestyle No Kim Solis RMA documented as of this encounter Procedures Procedure Name Priority Date/Time Associated Diagnosis Comments HB-1 CUSTOM UDS PANEL-QUEST Routine 10/03/2019 1:40 PM EST Encounter for long-term current use of medication documented in this encounter Results * (ABNORMAL) HB-1 CUSTOM UDS PANEL-QUEST (10/03/2019 1:40 PM EST) Prescribed Drug 1 Lorazepam [facility] Ritalinic Acid NEGATIVE <100 ng/mL [facility] Comment:See Note 1 medMATCH Ritalinic Acid CONSISTENT [facility] medMatch Comments [facility] Comment:See Note 2 Prescribed Drug 1 Lorazepam [facility] 6-Acetylmorphine,G C/MS NEGATIVE <10 ng/mL [facility] medMATCH 6 Acetylmorphine CONSISTENT [facility] medMatch Comments [facility] Comment:See Note 2 Prescribed Drug 1 Lorazepam [facility] Creatinine, Urine 58.5 > or = 20.0 mg/dL [facility] UA Spec Grav 1.014 > or = 1.003 [facility] UA pH 5.4 4.5 - 9.0 [facility] Oxidant NEGATIVE <200 mcg/mL [facility] Amphetamines NEGATIVE <500 ng/mL [facility] medMATCH Amphetamines CONSISTENT [facility] Barbiturates NEGATIVE <300 ng/mL [facility] medMATCH Barbiturates CONSISTENT [facility] Benzodiazepines NEGATIVE <100 ng/mL [facility] medMATCH Benzodiazepines INCONSISTENT( A) [facility] Marijuana Metabolite NEGATIVE <20 ng/mL [facility] medMATCH Marijuana Metab CONSISTENT [facility] Cocaine Metabolite NEGATIVE <150 ng/mL [facility] medMATCH Cocaine Metab CONSISTENT [facility] Methadone NEGATIVE <100 ng/mL [facility] medMATCH Methadone CONSISTENT [facility] Opiates NEGATIVE <100 ng/mL [facility] medMATCH Opiates CONSISTENT [facility] Oxycodone NEGATIVE <100 ng/mL [facility] medMATCH Oxycodone CONSISTENT [facility] medMatch Comments [facility] Comment: See Note 2 Note 1 This test was developed and its analytical performance characteristics have been determined by [facility]. It has not been cleared or approved [...] interpreting these drug results, please contact a [facility] Toxicology Specialist: [phone] ( ), M-F, 8am-6pm EST. 10/03/2019 1:40 PM EST 10/03/2019 6:53 PM EST Dora MCKEON-PDM ORDERABLE (NON-SEH) F inal Result [facility] [address] [place] [phone] [facility] [address] [place] [address] documented in this encounter Visit Diagnoses Diagnosis Encounter for long-term current use of medication documented in this encounter Orders Lab Orders Without Results Count Last Ordered D ate First Ordered Date PDM,BENZODIAZEPINES W/ CONF, URINE-QUEST 1 10/03/2019 documented in this encounter Additional Health Concerns Assessment Noted Time A fall risk assessment has been complete d for the patient 10/03/2019 8:29 AM EST documented as of this encounter Care Teams Bottom Presser Relationship Specialty Start Date End Date Dora Hernandez MD [address] [place] [address] PCP - General Family Medicine 12/24/15 documented as of this encounter
--- OUTSIDE RECORDS SUMMARY | 2024-09-12 12:46 | XMS_ITS | Encounter Summary ---
Author Organization [place] [address] Care Team Providers Care Floatman Name Role Phone Dora Hernandez MD Primary Care Provider [phone] Reason for Visit * Reason Comments Medication Refill Encounter Details Date Type Department Care Team (Late st Contact Info) Description 08/25/2019 Refill [facility] [address] [place] [address] Dora Hernandez MD [address] [place] [address] Medication Refill Social History Tobacco [...] TOPICALLY 4 TIMES DAILY. 300 g 2 08/25/2019 3 documented in this encounter Plan of Treatment Not on file documented as of this encounter Goals Goal Patient Goal Type Associated Problems Recent Progress Patient-Stated? Author Blood Pressure < 140/90 Blood Pressure 110/78(2023 11:26 AM EDT) No Ember Canela, RN Maintain a healthy diet, exercise regularly and maintain an ideal body weight General No Kim Solis RMMalcolm Maintain a healthy diet, exercise regularly and maintain an ideal body weight General No Aurelia Saldana RMA Stay Tobacco Free Lifestyle No Kim Solis RMA documented as of this encounter Visit Diagnoses Not on filedocumented in this encounter Discontinued Medications Medication Sig Discontinue Reason Start Date End Da te diclofenac (VOLTAREN) 1 % Top Gel APPLY 2 GRAMS TOPICALLY 4 TIMES DAILY. Reorder 07/28/2019 08/25/2019 documented as of this encounter Additional Health Concerns Assessment Noted Time A fall risk assessment has been complete d for the patient 12/01/2016 9:10 AM EST documented as of this encounter Care Teams Floatman Relationship Specialty Start Date End Date Dora Hernandez MD [address] [facility] [phone] PCP - General Family Medicine 12/24/15 documented as of this encounter
--- OUTSIDE RECORDS SUMMARY | 2024-09-12 12:46 | XMS_ITS | Encounter Summary ---
Author Organization [facility] [place] [address] Care Team Providers Care Balloon Dipper Name Role Phone Dora Hernandez MD Primary Care Provider [phone] Encounter Details Date Type Department Care Team (Latest Contact Info) Description 12/20/2019 Travel Social History Tobacco Use Types Packs/Day [...] documented as of this encounter Care Teams Balloon Dipper Relationship Specialty Start Date End Date Dora Hernandez MD [address] [facility] [place] [phone] PCP - General Family Medicine 12/24/15 documented as of this encounter
--- OUTSIDE RECORDS SUMMARY | 2024-09-12 12:46 | XMS_ITS | Encounter Summary ---
Author Organization [facility] [place] [address] Care Team Providers Care Aviation Project Manager Name Role Phone Dora Hernandez MD Primary Care Provider [phone] Encounter Details Date Type Department Care Team (Latest Contact Info) Description 03/27/2020 Travel Social History Tobacco Use Types Packs/Day [...] documented as of this encounter Care Teams Aviation Project Manager Relationship Specialty Start Date End Date Dora Hernandez MD [address] [place] [address] PCP - General Family Medicine 12/24/15 documented as of this encounter
--- OUTSIDE RECORDS SUMMARY | 2024-09-12 12:46 | XMS_ITS | Encounter Summary ---
Author Organization [facility] [place] [address] Care Team Providers Care Service Assistant Name Role Phone Dora Hernandez MD Primary Care Provider [phone] Encounter Details Date Type Department Care Team (Latest Contact Info) Description 07/26/2020 Travel Social History Tobacco Use Types Packs/Day [...] documented as of this encounter Care Teams Service Assistant Relationship Specialty Start Date End Date Dora Hernandez MD [address] [place] [phone] PCP - General Family Medicine 12/24/15 documented as of this encounter
--- OUTSIDE RECORDS SUMMARY | 2024-09-12 12:47 | XMS_ITS | Encounter Summary ---
Author Organization [facility] [address] Care Team Providers Care Rn Birthing Name Role Phone Dora Hernandez MD Primary Care Provider [phone] Reason for Visit * Reason Comments Medication Refill Encounter Details Date Type Department Care Team (Late st Contact Info) Description 09/21/2018 [facility] [address] [place] [address] Dora Hernandez MD [address] [place] [address] Medication Refill Social History Tobacco [...] TAKE 1 TABLET EVERY DAY 90 Tab 09/21/2018 11/30/2018 documented in this encounter Plan of Treatment [...] maintain an ideal body weight General No Auerlia Saldana, RMMalcolm Stay Tobacco Free Lifestyle No Kim Solis RMA documented as of this encounter Visit Diagnoses Not on filedocumented in this encounter Discontinued Medications Medication Sig Discontinue Reason Start Date End Da te metoprolol succinate ER (TOPROL-XL) 100 mg Oral Tablet Sustained Release 24 hr TAKE 1 TABLET EVERY DAY Reorder 07/19/2018 09/21/2018 documented as of this encounter Additional Health Concerns Assessment Noted Time A fall risk assessment has been complete d for the patient 12/01/2016 9:10 AM EST documented as of this encounter Care Teams Rn Birthing Relationship Specialty Start Date End Date Dora Hernandez MD [address] [facility] [place] [address] PCP - General Family Medicine 12/24/15 documented as of this encounter
--- OUTSIDE RECORDS SUMMARY | 2024-09-12 12:47 | XMS_ITS | Encounter Summary ---
Author Organization [place] [address] Care Team Providers Care Garment Finisher Name Role Phone Dora Hernandez MD Primary Care Provider [phone] Reason for Visit * Reason Onset Date Comments Other 04/05/2018 needs [employer] ic[employer] AWV Encounter Details Date Type Department Care Team (Late st Contact Info) Description 04/05/2018 Telephone SEP [facility] [address] [facility] [place] [address] Dora Hernandez MD [address] [facility] [place] [address] Other (needs [employer] Medicare AWV) Social History Tobacco Use Types Packs/Day Years [...] encounter Miscellaneous Notes * Telephone Encounter - Avis Hernandez - 04/05/2018 1:38 PM EDT Pt needs a [employer] Medicare AWV documented in this encounter Plan of Treatment [...] maintain an ideal body weight General No uArelia Saldana RMA Stay Tobacco Free Lifestyle No Kim Solis RMA documented as of this encounter Visit Diagnoses Not on filedocumented in this encounter Additional Health Concerns Assessment Noted Time A fall risk assessment has been complete d for the patient 12/01/2016 9:10 AM EST documented as of this encounter Care Teams Garment Finisher Relationship Specialty Start Date End Date Dora Hernandez MD [address] [place] [phone] PCP - General Family Medicine 12/24/15 documented as of this encounter
--- OUTSIDE RECORDS SUMMARY | 2024-09-12 12:47 | XMS_ITS | Encounter Summary ---
Author Organization [place] [address] Care Team Providers Care Drywall Boardhanger Name Role Phone Dora Hernandez MD Primary Care Provider [phone] Reason for Visit * Reason Comments Medication Refill Encounter Details Date Type Department Care Team (Late st Contact Info) Description 02/01/[facility] [address] [place] [address] Dora Hernandez MD [address] [place] [address] Medication Refill Social History Tobacco Use Types Packs/Day Years Used Date Smoking Tobacco: Never Assessed Sex and Gender Information Value Date Recorded Sex Assigned at Not on file Legal Sex Male 2:45 AM EDT Gender Identity Not on file Sexual Orientation Not on file documented as of this encounter Plan of Treatment Not on [...] documented as of this encounter Care Teams Drywall Boardhanger Relationship Specialty Start Date End Date Dora Hernandez MD [address] [facility] [place] [phone] PCP - General Family Medicine 12/24/15 documented as of this encounter
--- OUTSIDE RECORDS SUMMARY | 2024-09-12 12:47 | XMS_ITS | Encounter Summary ---
Author Organization [place] [address] Care Team Providers Care Respiratory Manager Name Role Phone Dora Hernandez MD Primary Care Provider [phone] Reason for Visit * Reason Onset Date Comments Medication Refill 12/15/2017 Encounter Details Date Type Department Care Team (Late st Contact Info) Description 12/15/2017 Telephone [facility] [place] [address] [place] [address] Dora Hernandez MD [address] [place] [address] Medication Refill Social History Tobacco [...] Refills Last Filled Start Date End Date losartan-hydrochlor othiazide (HYZAAR) 50-12.5 mg Oral TabletIndications:E ssential hypertension Take 1 Tab by mouth daily. 90 Tab 1 12/15/2017 05/06/2018 documented in this encounter Miscellaneous Notes * Telephone Encounter - Grace Rojas, [facility] - 12/15/2017 11:53 AM EST E scribed Thank you * Telephone Encounter - JoniAlissa - 12/15/2017 11:38 AM EST Needs Rx Losartan-hydrochlorothiazide 50/12.5 mg # 90 [facility] The pt's said it is under Alex with [employer]. documented in this encounter Plan of Treatment [...] Discontinue Reason Start Date End Da te losartan-hydrochlorothiazi de (HYZAAR) 50-12.5 mg Oral TabletIndications:Essentia l hypertension Take 1 Tab by mouth daily. Reorder 04/21/2017 12/15/2017 documented as of this encounter Additional Health Concerns Assessment Noted Time A fall risk assessment has been complete d for the patient 12/01/2016 9:10 AM EST documented as of this encounter Care Teams Respiratory Manager Relationship Specialty Start Date End Date Dora Hernandez MD [address] [facility] [place] [address] PCP - General Family Medicine 12/24/15 documented as of this encounter
--- OUTSIDE RECORDS SUMMARY | 2024-09-12 12:47 | XMS_ITS | Encounter Summary ---
Author Organization [place] [address] Care Team Providers Care Manager Telemetry Name Role Phone Dora Hernandez MD Primary Care Provider [phone] Reason for Visit * Reason Comments Medication Refill Encounter Details Date Type Department Care Team (Late st Contact Info) Description 02/08/2019 [facility] [address] [place] [address] Dora Hernandez MD [address] [place] [address] Medication Refill Social History Tobacco Use Types Packs/Day Years Used Date Smoking Tobacco: Never Assessed Sex and Gender Information Value Date Recorded Sex Assigned at Not on file Legal Sex Male 2:45 AM EDT Gender Identity Not on file Sexual Orientation Not on file documented as of this encounter Miscellaneous Notes * Telephone Encounter - Ree Stout CCMA - 02/08/2019 4:32 PM EDT Pt has 2 charts this chart is not the correct one. Correct one is listed under his given name: Jac Garvin documented in this encounter Plan of Treatment [...] as of this encounter Care Teams Manager Telemetry Relationship Specialty Start Date End Date Dora Hernandez MD [address] [facility] [place] [address] PCP - General Family Medicine 12/24/15 documented as of this encounter
--- OUTSIDE RECORDS SUMMARY | 2024-09-12 12:47 | XMS_ITS | Encounter Summary ---
Author Organization [place] [address] Care Team Providers Care Target Worker Name Role Phone Dora Hernandez MD Primary Care Provider [phone] Reason for Visit * Reason Comments Medication Refill Encounter Details Date Type Department Care Team (Late st Contact Info) Description 01/26/2017 [facility] [address] [place] [address] Dora Hernandez MD [address] [place] [address] Medication Refill Social History Tobacco [...] Refills Last Filled Start Date End Date losartan-hydrochlo rothiazide (HYZAAR) 50-12.5 mg Oral TabletIndications: Essential hypertension TAKE ONE TABLET BY MOUTH DAILY 30 Tab 1 01/26/2017 03/29/2017 documented in this encounter Plan of Treatment Not on file documented as of this encounter Goals Goal Patient Goal Type Associated Problems Recent Progress Patient-Stated? Author Blood Pressure < 140/90 Blood Pressure 110/78(2023 11:26 AM EDT) Ember Keenan, RN Maintain a healthy diet, exercise regularly and maintain an ideal body weight General No Kim Solis RMA Stay Tobacco Free Lifestyle No Kim Solis RMA documented as of this encounter Visit Diagnoses Diagnosis Essential hypertension- Primary Unspecified essential hypertension documented in this encounter Discontinued Medications Medication Sig Discontinue Reason Start Date End Da te losartan-hydrochlorothia zide (HYZAAR) 50-12.5 mg Oral Tablet TAKE ONE TABLET BY MOUTH DAILY Reorder 10/27/2016 01/26/2017 documented as of this encounter Additional Health Concerns Assessment Noted Time A fall risk assessment has been complete d for the patient 12/01/2016 9:10 AM EST documented as of this encounter Care Teams Target Worker Relationship Specialty Start Date End Date Dora Hernandez MD [address] [place] [phone] PCP - General Family Medicine 12/24/15 documented as of this encounter
--- OUTSIDE RECORDS SUMMARY | 2024-09-12 12:47 | XMS_ITS | Encounter Summary ---
Author Organization [place] [address] Care Team Providers Care Labourers Name Role Phone Dora Hernandez MD Primary Care Provider [phone] Reason for Visit * Reason Comments Medication Refill Encounter Details Date Type Department Care Team (Late st Contact Info) Description 07/19/2018 [facility] [address] [place] [address] Dora Hernandez MD [address] [place] [address] Medication Refill Social History Tobacco [...] TAKE 1 TABLET EVERY DAY 90 Tab 07/19/2018 09/21/2018 documented in this encounter Plan of Treatment [...] hr TAKE 1 TABLET EVERY DAY Reorder 10/01/2017 07/19/2018 documented as of this encounter Additional Health Concerns Assessment Noted Time A fall risk assessment has been complete d for the patient 12/01/2016 9:10 AM EST documented as of this encounter Care Teams Labourers Relationship Specialty Start Date End Date Dora Hernandez MD [address] [facility] [place] [address] PCP - General Family Medicine 12/24/15 documented as of this encounter
--- OUTSIDE RECORDS SUMMARY | 2024-09-12 12:47 | XMS_ITS | Encounter Summary ---
Author Organization [place] [address] Care Team Providers Care Architectural Renderer Name Role Phone Dora Hernandez MD Primary Care Provider [phone] Reason for Referral * MRI/CAT Scan (Routine) - Closed Specialty Diagnoses / Procedures Referred By Contac t Referred To Contact Radiology Diagnoses Pulmonary nodule, right Procedures CT CHEST W CONTRAST Dain Burris MD [address] [place], [place] [address] Phone: tel: fax: [place] [place] [address] Phone: tel: fax: Referral ID Status Reason Start Date Expiration Date Visits Re quested Visits Authorized [id number] Closed 07/22/2016 07/22/2017 1 1 Reason for Visit * MRI/CAT Scan (Routine) - Closed Specialty Diagnoses / Procedures Referred By Contac t Referred To Contact Radiology Diagnoses Pulmonary nodule, right Procedures CT CHEST W CONTRAST Dain Burris MD [address] [place] [address] Phone: tel: fax: [facility] [address] [place] [address] Phone: tel: fax: Referral ID Status Reason Start Date Expiration Date Visits Re quested Visits Authorized [id number] Closed 07/22/2016 07/22/2017 1 1 Encounter Details Date Type Department Care Team (Latest Contact Info) Description 12/30/2016 9:24 AM EST - 12/30/2016 11:59 PM EST Hospital Encounter [facility] [address] [place] [address] Dain Burris MD [address] [facility] [address] [place] [address] Pulmonary nodule, right Discharge Disposition: Home or Self Care Social [...] on file documented as of this encounter Discharge Disposition Disposition Code Departure Means Destination Home or Self Care documented in this encounter Plan of Treatment Not on file documented as of this encounter Goals Goal Patient Goal Type Associated Problems Recent Progress Patient-Stated? Author Blood Pressure < 140/90 Blood Pressure 110/78( 024 11:26 AM EDT) Ember Keenan RN documented as of this encounter Procedures Procedure Name Priority Date/Time Associated Diagnosis Comments CT CHEST W CONTRAST Routine 12/30/2016 1 0:06 AM EST Pulmonary nodule, right CREATININE ISTAT Routine 12/30/2016 9:39 AM EST documented in this encounter Results * CT CHEST W CONTRAST (12/30/2016 10:06 AM EST) Anatomical Region Laterality Modality Chest Computed Tomogra phy 12/30/2016 10:0 6 AM EST Addenda Addendum by Favio Fisher MD on 12/30/2016 12:25 PM EST Addendum to chest CT from 12/30/2016: Moderate sized pericardial effusion is new from 07/20/2016 and measures 2.1 cm in greatest dimension. Phillip Whipple ashley next Impressions 12/30/2016 11:12 AM EST [...] helpful for further evaluation and characterization. Favio Phillip Whipple follow-up Code ashley Narrative 12/30/2016 11:[address] CHEST W CONTRAST 12/30/2016 History: Clinical: 76 years. Male . R91.1-Solitary pulmonary [id number]. Smoking history. 75 mL of Isovue-370 administered [...] History: Clinical: 76 years. Male . R91.1-Solitary [id number]-CM. Smoking history. 75 mL of Isovue-370 administered [...] * CREATININE ISTAT (12/30/2016 9:39 AM EST) Creatinine 0.8 0.6 - 1.3 mg/dL [facility] Blood specimen (specimen) 12/30/2016 9:39 AM EST 12/30/2016 9:39 AM EST Dain Burris MD POINT OF CARE TEST ORDERABLES Fi nal Result [facility] [address] [facility] [place] [address] documented in this encounter Visit Diagnoses Diagnosis Pulmonary nodule, right Solitary pulmonary nodule documented in this encounter Administered Medications Inactive Administered Medications - up to 1 most recent administrations Medication Order MAR Action Action Date Dose Rate Site iopamidol (ISOVUE-370) 76 % injection (LOW) 100 mL 100 mL, Intravenous, ONCE PRN, 1 dose, Starting on Wed12/30/16 at 0932, Until Wed12/30/16 at 1000, Radiology Procedure, VESICANT , CT (Contrasts) Given 12/30/2016 10:00 AM EST 75 mL sodium chloride 0.9% syringe Intravenous, ONCE PRN, 1 dose, Starting on Wed12/30/16 at 0932, Until Wed12/30/16 at 1000, Line Care, Flush every shift or after IV medication, CT (Contrasts) Given 12/30/2016 10:00 AM EST 20 mL documented in this encounter Additional Health Concerns Assessment Noted Time A fall risk assessment has been complete d for the patient 12/01/2016 9:10 AM EST documented as of this encounter Care Teams Architectural Renderer Relationship Specialty Start Date End Date Dora Hernandez MD [address] [facility] [address] [place] [address] PCP - General Family Medicine 12/24/15 documented as of this encounter
--- OUTSIDE RECORDS SUMMARY | 2024-09-12 12:47 | XMS_ITS | Encounter Summary ---
Author Organization [facility] [place] [address] Care Team Providers Care Territory Development Manager Name Role Phone Dora Hernandez MD Primary Care Provider [phone] Reason for Visit * Reason Comments Medication Refill Encounter Details Date Type Department Care Team (Late st Contact Info) Description 05/03/2019 Refill SEP [facility] [address] [place] [address] Dora Hernandez MD [address] [place] [address] Medication Refill Social History Tobacco Use Types Packs/Day Years Used Date Smoking Tobacco: Never Assessed Sex and Gender Information Value Date Recorded Sex Assigned at Not on file Legal Sex Male 2:45 AM EDT Gender Identity Not on file Sexual Orientation Not on file documented as of this encounter Miscellaneous Notes * Telephone Encounter - Ree Stout CCMA - 05/03/2019 2:22 PM EDT Pt has 2 charts this [...] documented as of this encounter Care Teams Territory Development Manager Relationship Specialty Start Date End Date Dora Hernandez MD [address] [facility] [place] [address] PCP - General Family Medicine 12/24/15 documented as of this encounter
--- OUTSIDE RECORDS SUMMARY | 2024-09-12 12:47 | XMS_ITS | Encounter Summary ---
Author Organization [place] [address] Care Team Providers Care Program Writer Name Role Phone Dora Hernandez MD Primary Care Provider [phone] Reason for Visit * Reason Comments Medication Refill Encounter Details Date Type Department Care Team (Late st Contact Info) Description 05/05/2018 [facility] [address] [place] [address] Dora Hernandez MD [address] [place] [address] Medication Refill Social History Tobacco [...] an ideal body weight General No Kim Slois RMA Maintain a healthy diet, exercise regularly and maintain an ideal body weight General No Aurelia Saldana RMA Stay Tobacco Free Lifestyle No Kmi Solis RMA documented as of this encounter Visit Diagnoses Not on filedocumented in this encounter Additional Health Concerns Assessment Noted Time A fall risk assessment has been complete d for the patient 12/01/2016 9:10 AM EST documented as of this encounter Care Teams Program Writer Relationship Specialty Start Date End Date Dora Hernandez MD [address] [facility] [place] [phone] PCP - General Family Medicine 12/24/15 documented as of this encounter
--- OUTSIDE RECORDS SUMMARY | 2024-09-12 12:47 | XMS_ITS | Encounter Summary ---
Author Organization [place] [address] Care Team Providers Care Selvage Machine Operator Name Role Phone Dora Hernandez MD Primary Care Provider [phone] Reason for Visit * Reason Comments Medication Refill Encounter Details Date Type Department Care Team (Late st Contact Info) Description 10/27/2016 [facility] [address] [place] [address] Dora Hernandez MD [address] [place] [address] Medication Refill Social History Tobacco [...] Date losartan-hydrochlo rothiazide (HYZAAR) 50-12.5 mg Oral Tablet TAKE ONE TABLET BY MOUTH DAILY 30 Tab 2 10/27/2016 01/26/2017 documented in this encounter Miscellaneous Notes * Telephone Encounter - Genoveva Jensen RMA - 10/27/2016 1:32 PM EST Approved documented in this encounter Plan of Treatment Not on file documented as of this encounter Visit Diagnoses Not on filedocumented in this encounter Discontinued Medications Medication Sig Discontinue Reason Start Date End Da te losartan-hydrochlorothia zide (HYZAAR) 50-12.5 mg Oral Tablet TAKE ONE TABLET BY MOUTH DAILY Reorder 06/22/2016 10/27/2016 documented as of this encounter Care Teams Selvage Machine Operator Relationship Specialty Start Date End Date Dora Hernandez MD [address] [facility] [place] [address] PCP - General Family Medicine 12/24/15 documented as of this encounter
--- OUTSIDE RECORDS SUMMARY | 2024-09-12 12:47 | XMS_ITS | Encounter Summary ---
Author Organization [place] [address] Care Team Providers Care Actuarial Consultant Name Role Phone Dora Hernandez MD Primary Care Provider [phone] Reason for Visit * Reason Comments Medication Refill Encounter Details Date Type Department Care Team (Late st Contact Info) Description 03/29/[facility] [address] [place] [address] Dora Hernandez MD [address] [place] [address] Medication Refill Social History Tobacco [...] ONE TABLET BY MOUTH DAILY 30 Tab 6 03/29/2017 04/21/2017 documented in this encounter Plan of Treatment [...] te losartan-hydrochlorothiaz fadia (HYZAAR) 50-12.5 mg Oral TabletIndications:Alejandra al hypertension TAKE ONE TABLET BY MOUTH DAILY Reorder 01/26/2017 03/29/2017 documented as of this encounter Additional Health Concerns Assessment Noted Time A fall risk assessment has been complete d for the patient 12/01/2016 9:10 AM EST documented as of this encounter Care Teams Actuarial Consultant Relationship Specialty Start Date End Date Dora Hernandez MD [address] [facility] [place] [phone] PCP - General Family Medicine 12/24/15 documented as of this encounter
--- OUTSIDE RECORDS SUMMARY | 2024-09-12 12:47 | XMS_ITS | Encounter Summary ---
Author Organization [place] [address] Care Team Providers Care Machine Hand Name Role Phone Dora Hernandez MD Primary Care Provider [phone] Reason for Visit * Reason Comments Results CT chest * Consultation (Routine) - Closed Specialty Diagnoses / Procedures Referred By Contac t Referred To Contact Pulmonology Diagnoses Pulmonary nodule, right Dora Hernandez MD [address] [place] [address] Phone: tel: fax: Dain Burris MD [address] [address] Phone: tel: fax: Referral ID Status Reason Start Date Expiration Date V isits Requested Visits Authorized [id number] Closed Specialty Services Required 12/29/2016 12/29/2017 99 99 Encounter Details Date Type Department Care Team (Late st Contact Info) Description 01/06/2017 2:30 PM EDT Office Visit SEP Pulmonology [facility] [address] [address] Dain Burris MD [address] [phone] Pulmonary nodule, right (Primary Dx); Hyponatremia; Former smoker; Shoulder mass Social History Tobacco Use Types Packs/Day Years [...] Sign Reading Time Taken Comments Blood Pressure 138/72 01/06/2017 2:46 PM EDT Pulse 56 01/06/2017 2:46 PM EDT Temperature - - Respiratory Rate - - Oxygen Saturation 96% 01/06/2017 2:46 PM EDT at rest Inhaled Oxygen Concentration - - Weight 107.5 kg (237 lb) 01/06/2017 2:46 PM EDT Height 190.5 cm (6' 3 ) 01/06/2017 2:46 PM EDT Body Mass Index 29.62 01/06/2017 2:46 PM EDT documented in this encounter Progress Notes * Dain Burris MD - 01/06/2017 2:30 PM EDT Images from the original note were not included. SEP Pulmonary / Critical Care Group Followup Visit PATIENT: LOY CREWS CSN: [id number] AGE TODAY: 76 y.o. DATE: [address]: Dora Hernandez MD SERVICE DATE: 01/06/2017 [facility] [place] BY: Dain Burris MD Subjective: Patient ID: Loy Crews returns today for follow up of The primary encounter diagnosis was Pulmonary nodule, right. Diagnoses of Hyponatremia, Former smoker, and Shoulder mass were also pertinent to this visit. CHIEF COMPLAINT Chief Complaint Patient presents with ??? Results CT chest HPI Loy Crews is a 76 y.o. male who presents Has not smoked now on a pipe No sx's Constitutional: Denies fever or chills Eyes: Denies change in visual acuity HENT: Denies nasal congestion or sore throat Respiratory: abreu Cardiovascular: Denies chest pain or edema GI: Denies abdominal pain, nausea, vomiting, bloody stools or diarrhea : Denies dysuria Musculoskeletal: Denies back pain or joint pain Integument: Denies rash Neurologic: Denies headache, focal weakness or sensory changes Endocrine: Denies polyuria or polydipsia Lymphatic: Denies swollen glands Psychiatric: Denies depression or anxiety Peripheral vascular: Denies claudication Past Medical History: Diagnosis Date ??? Hypertension ??? Tobacco use 12/23/2015 Social History Social History ??? Marital status: Spouse name: N/A ??? Number of children: N/A ??? Years of education: N/A Social History Main Topics ??? Smoking status: Former Smoker Packs/day: 2.00 Years: 50.00 Types: Pipe Quit date: 01/03/2016 ??? Smokeless tobacco: None ??? Alcohol use 0.0 oz/week 2 - 3 Cans of beer per week Comment: beer and wine ??? Drug use: No ??? Sexual activity: Not Asked Other Topics Concern ??? None Social History Narrative No Known Allergies Objective: PHYSICAL EXAM VITAL SIGNS: Vitals: 01/06/17 1446 BP: 138/72 BP Location: Left arm Patient Position: Sitting Pulse: 56 SpO2: 96% Weight: 237 lb (107.5 kg) Height: 6' 3 (1.905 m) Wt Readings from Last 3 Encounters: 01/06/17 237 lb (107.5 kg) 12/01/16 235 lb (106.6 kg) 07/22/16 237 lb (107.5 kg) General Appearance: Alert, cooperative, no distress, appears stated age Head: Normocephalic, without obvious abnormality, atraumatic Eyes: PERRL, conjunctiva/corneas clear, EOM's intact, fundi benign, both eyes Ears: Normal TM's and external ear canals, both ears Nose: Nares normal, septum midline, mucosa normal, no drainage or sinus tenderness Throat: Lips, mucosa, and tongue normal; teeth and gums normal Neck: Supple, symmetrical, trachea midline, no adenopathy; thyroid: No enlargement/tenderness/nodules; no carotid bruit or JVD Back: Symmetric, no curvature, ROM normal, no CVA tenderness Mobile nontender hard nodule 6 cm posterior right shoulder Lungs: Clear to auscultation bilaterally, respirations unlabored Chest wall: No tenderness or deformity Heart: Regular rate and rhythm, S1 and S2 normal, no murmur, rub or gallop Abdomen: Soft, non-tender, bowel sounds active all four quadrants, no masses, no organomegaly Genitalia: deferred Extremities: Extremities normal, atraumatic, no cyanosis or edema Pulses: 2+ and symmetric all extremities Skin: Skin color, texture, turgor normal, no rashes or lesions Lymph nodes: Cervical, supraclavicular, and axillary nodes normal Neurologic: CNII-XII intact. Normal strength, sensation and reflexes throughout Lab Results Component Value Date WBC 8.6 12/22/2015 HGB 15.0 12/22/2015 HCT 42.8 12/22/2015 PLT 339 12/22/2015 CHOLESTEROL 173 12/23/2015 TRIG 98 12/23/2015 HDL 50 12/23/2015 LDLCALC 103 (H) 12/23/2015 ALT 32 11/12/2014 AST 20 11/12/2014 NA 133 (L) 2015 K 4.0 2015 CL 97 (L) 2015 CREATININE 0.8 12/30/2016 BUN 14 2015 CO2 21 (L) 2015 TSH 1.290 12/23/2015 PSA 1.44 12/23/2015 GLU 116 (H) 2015 HGBA1C 5.5 12/23/2015 Ct Chest W Contrast Result Date: 07/20/2016 CT CHEST W CONTRAST 07/20/2016 12:40 PM HISTORY: R91.1-Solitary pulmonary [id number]-CM Contrast:75 mL Isovue 370 IV Automatic exposure control was used for dose reduction Comparison: 12/23/2015 Findings: No mediastinal or hilar lymphadenopathy. Stable low-density bilateral thyroid nodules. 7 mm right lower lobe pulmonary nodule is decreased in size, previously it measured 9 mm. 5 mm right upper lobe pulmonary nodule stable. No new or enlarging pulmonary nodules. No acute bony abnormality. Impression: 1. Right upper lobe pulmonary nodule stable. Right lower lobe pulmonary nodule decreased in size. Recommend 6-12 month follow-up chest CT. CT CHEST W CONTRAST 12/30/2016 ??History: Clinical: 76 years. Male . R91.1-Solitary pulmonary zmuhig-SKV-51-CM. Smoking history. ??75 mL of Isovue-370 administered intravenously. Automated dose reduction utilized.. ??Comparison: Prior chest CTs from 07/20/2016 and 12/23/2015. Correlation also made with whole body PET/CT from 01/16/2016.. ?? Findings: ? There is an incompletely imaged soft tissue [...] 01/16/2016. Included chest wall is otherwise unremarkable. ?? Tracheobronchial tree is normal. ?? There is a stable approximately 5 mm nodule in the anterolateral right upper lobe (image 18). There is a stable 8 mm subpleural nodule in the posterior lateral right lower lobe (image 38). There are calcified granulomas in the posterior segment right upper lobe (scans 19 through 21). There are no new or enlarging pulmonary nodules. There are no infiltrates. ?? There are scattered small mediastinal calcifications from healed granulomatous disease. There are no enlarged noncalcified hilar or mediastinal nodes. ?? There are no pleural collections. ?? There is moderate pericardial effusion which is new and which measures approximately 2 cm in greatest thickness posteriorly ectasis image 46). ?? There are increased densities within the coronary arteries, consistent with coronary calcifications and/or stents. ?? Included upper abdomen is unremarkable. ?? Bone windows demonstrate mild degenerative changes of the spine. ?? IMPRESSION: Stable 5 mm right upper lobe pulmonary nodule and stable 8 mm right lower lobe pulmonary nodule. No new or enlarging nodules. No infiltrates or adenopathy. Fairly well circumscribed ovoid soft tissue density within [...] be helpful for further evaluation and characterization. ? Favio Fisher ??Code follow-up ??Code jot next day Assessment and Plan: Diagnostic tests were reviewed and questions answered. Diagnosis, care plan and treatment options were discussed. The patient understand instructions and will follow up as directed. 1. Pulmonary nodule, right 2. Hyponatremia 3. Former smoker 4. Shoulder mass No more smoking Repeat ct chest in 12 mos Need to get in shape Refer to pcp to consider right shoulder mass documented in this encounter Plan of Treatment Not on file documented as of this encounter Goals Goal Patient Goal Type Associated Problems Recent Progress Patient-Stated? Author Blood Pressure < 140/90 Blood Pressure 110/78( 024 11:26 AM EDT) Ember Keenan RN documented as of this encounter Visit Diagnoses Diagnosis Pulmonary nodule, right- Primary Solitary pulmonary nodule Hyponatremia Hyposmolality and/or hyponatremia Former smoker Personal history of tobacco use, presenting hazards to health Shoulder mass Other symptoms referable to shoulder joint documented in this encounter Discontinued Medications Medication Sig Discontinue Reason Start Date End Da te lactobacillus rhamnosus, GG, (CULTURELLE) 10 billion cell Oral Capsule Take 1 Cap by mouth daily. DELETE-Therapy completed 01/06/2017 magnesium hydroxide (MILK OF MAGNESIA) 400 mg/5 mL Oral Suspension Take by mouth daily. DELETE-Therapy completed 01/06/2017 uckcpoyd-whjltqrma-yozj ocortisone (CORTISPORIN) 3.5-10,000-1 mg/mL-unit/mL-% Otic Drops, Suspension Place 4 Drops into both ears 3 times daily. DELETE-Therapy completed 12/23/2015 01/06/2017 azgieanp-htxsjanac-aplx ocortisone (CORTISPORIN) Otic SolutionIndications:Acu te otitis externa of right ear, unspecified type Place 5 Drops into the right ear 2 times daily. X 5 days DELETE-Therapy completed 07/09/2016 01/06/2017 potassium & sodium citrate-citric acid-sucrose (POLYCITRA) 550-500-334 mg/5 mL Oral Solution Take by mouth 4 times daily (with meals and nightly). DELETE-Therapy completed 01/06/2017 documented as of this encounter Additional Health Concerns Assessment Noted Time A fall risk assessment has been complete d for the patient 12/01/2016 9:10 AM EST documented as of this encounter Care Teams Machine Hand Relationship Specialty Start Date End Date Dora Hernandez MD [address] [place] [address] PCP - General Family Medicine 12/24/15 documented as of this encounter
--- OUTSIDE RECORDS SUMMARY | 2024-09-12 12:47 | XMS_ITS | Encounter Summary ---
Author Organization [place] [address] Care Team Providers Care Construction Equipment Operator Name Role Phone Dora Hernandez MD Primary Care Provider Reason for Visit * Reason Onset Date Comments Other 12/15/2016 Encounter Details Date Type Department Care Team (Late st Contact Info) Description 12/15/2016 Telephone [facility] [address] [place] [address] Dora Hernandez MD [address] [facility] [place] [place] [address] Other Social History Tobacco Use Types Packs/Day Years Used Date Smoking Tobacco: Never Assessed Sex and Gender Information Value Date Recorded Sex Assigned at Not on file Legal Sex Male 2:45 AM EDT Gender Identity Not on file Sexual Orientation Not on file documented as of this encounter Miscellaneous Notes * Telephone Encounter - Aurelia Saldana RMA - 12/16/2016 8:45 AM EST [email or web address] * Telephone Encounter - Dora Hernandez MD - 12/15/2016 4:27 PM EST Pt has 2 charts. pls see chart under Jac Garvin. It is AAA screening. Pt to call [phone] toschedule. Thanks. * Telephone Encounter - Kari Lamar - 12/15/2016 2:40 PM EST What is the proper name for the screening wanted the pt to have done? Pt doesn't rememberthe name of it when he was in about 10 days ago. documented in this encounter Plan of Treatment [...] documented as of this encounter Care Teams Construction Equipment Operator Relationship Specialty Start Date End Date Dora Hernandez MD [address] [facility] [address] [place] [phone] PCP - General Family Medicine 12/24/15 documented as of this encounter
--- OUTSIDE RECORDS SUMMARY | 2024-09-12 12:47 | XMS_ITS | Encounter Summary ---
Author Organization [place] [address] Care Team Providers Care Sales Development Consultant Name Role Phone Dora Hernandez MD Primary Care Provider Reason for Visit * Reason Onset Date Comments Medication Refill 10/01/2016 Encounter Details Date Type Department Care Team (Late st Contact Info) Description 10/01/2016 Telephone [facility] [place] [address] [employer] [place] [address] Dora Hernandez MD [address] [place] [address] Medication Refill Social History Tobacco [...] Tab by mouth daily. 90 Tab 3 10/01/2016 12/16/2016 amLODIPine (NORVASC) 10 mg Oral Tablet Take 1 Tab by mouth daily. 90 Tab 3 10/01/2016 05/06/2018 metoprolol succinate ER (TOPROL-XL) 100 mg Oral Tablet Sustained Release 24 hrIndications:Essen tial hypertension Take 1 Tab by mouth daily. 90 Tab 1 10/01/2016 10/01/2016 amLODIPine (NORVASC) 10 mg Oral TabletIndications:E ssential hypertension Take 1 Tab by mouth daily. 90 Tab 1 10/01/2016 10/01/2016 documented in this encounter Miscellaneous Notes * Telephone Encounter - Ree Stout CCMA - 10/01/2016 4:45 PM EST RXs called into pharmacy * Telephone Encounter - Alissa Quinones - 10/01/2016 4:07 PM EST Needs Rx Amlodipine 10 mg # 90 Pt is out of refills. Metoprolol ER 100 mg # 90 Pt has one more refill left. [employer] Pt's ID # [id number] Dr Hernandez documented in this encounter Plan of Treatment Not on file documented as of this encounter Visit Diagnoses Diagnosis Essential hypertension Unspecified essential hypertension documented in this encounter Discontinued Medications Medication Sig Discontinue Reason Start Date End Da te amLODIPine (NORVASC) 10 mg Oral TabletIndications:Essentia l hypertension Take 1 Tab by mouth daily. Reorder 12/31/2015 10/01/2016 metoprolol succinate ER (TOPROL-XL) 100 mg Oral Tablet Sustained Release 24 hrIndications:Essential hypertension Take 1 Tab by mouth daily. Reorder 07/01/2016 10/01/2016 amLODIPine (NORVASC) 10 mg Oral TabletIndications:Essentia l hypertension Take 1 Tab by mouth daily. Reorder 10/01/2016 10/01/2016 metoprolol succinate ER (TOPROL-XL) 100 mg Oral Tablet Sustained Release 24 hrIndications:Essential hypertension Take 1 Tab by mouth daily. Reorder 10/01/2016 10/01/2016 documented as of this encounter Care Teams Sales Development Consultant Relationship Specialty Start Date End Date Dora Hernandez MD [address] [facility] [place] [phone] PCP - General Family Medicine 12/24/15 documented as of this encounter
--- OUTSIDE RECORDS SUMMARY | 2024-09-12 12:47 | XMS_ITS | Encounter Summary ---
Author Organization [place] [address] Care Team Providers Care Cerner Analyst Name Role Phone Dora Hernandez MD Primary Care Provider [phone] Reason for Visit * Reason Comments Medication Refill Encounter Details Date Type Department Care Team (Late st Contact Info) Description 12/05/2016 Refill SEP [address] [place] [address] Dora Hernandez MD [address] [facility] [address] Medication Refill Social History Tobacco [...] Blood Pressure 110/78( 024 11:26 AM EDT) No Ember Canela RN documented as of this encounter Visit Diagnoses Not on filedocumented in this encounter Additional Health Concerns Assessment Noted Time A fall risk assessment has been complete d for the patient 12/01/2016 9:10 AM EST documented as of this encounter Care Teams Cerner Analyst Relationship Specialty Start Date End Date Droa Hernandez MD [address] [facility] [address] PCP - General Family Medicine 12/24/15 documented as of this encounter
--- OUTSIDE RECORDS SUMMARY | 2024-09-12 12:47 | XMS_ITS | Encounter Summary ---
Author Organization [place] [address] Care Team Providers Care Private Household Worker Name Role Phone Dora Hernandez MD Primary Care Provider [phone] Reason for Referral * Consultation (Routine) - Closed Specialty Diagnoses / Procedures Referred By Contac t Referred To Contact Ophthalmology Diagnoses Herpes zoster without complication Acute bacterial conjunctivitis of both eyes Dora Hernandez MD [address] [place] [address] Phone: tel: fax: [place] [address] Phone: tel: fax: Referral ID Status Reason Start Date Expiration Date Visits Re quested Visits Authorized [id number] Closed 07/26/2017 07/26/2018 99 99 Reason for Visit * Reason Comments Rash Pt c/o rash all over his back, chest and neck Watery Eye Pt also c/o watery e yes Encounter Details Date Type Department Care Team (Latest Contact Info) Description 07/26/2017 1:00 PM EDT Office Visit [facility] [address] [place] [address] Dora Hernandez MD [address] [place] [address] Herpes zoster without complication (Primary Dx); Anxiety disorder, unspecified type; Acute bacterial conjunctivitis of both eyes Social History Tobacco Use Types Packs/Day Years [...] Reading Time Taken Comments Blood Pressure 120/70 07/26/2017 1:07 PM EDT Pulse 54 07/26/2017 1:07 PM EDT Temperature 36.7 ??C (98 ??F) 07/26/2017 1:07 PM EDT Respiratory Rate - - Oxygen Saturation 98% 07/26/2017 1:07 PM EDT Inhaled Oxygen Concentration - - Weight 102.5 kg (226 lb) 07/26/2017 1:07 PM EDT Height 190.5 cm (6' 3 ) 07/26/2017 1:07 PM EDT Body Mass Index 28.25 07/26/2017 1:07 PM EDT documented in this encounter Ordered Prescriptions Prescription Sig Dispense Quantity Refills Last Filled Start Date End Date acetaminophen-codein e (TYLENOL #3) 300-30 mg Oral TabletIndications:He rpes zoster without complication Take 1 Tab by mouth every 6 hours as needed for Pain. 12 Tab 07/26/2017 9 acetaminophen-codein e (TYLENOL #3) 300-30 mg Oral TabletIndications:He rpes zoster without complication Take 1 Tab by mouth every 6 hours as needed for Pain. 12 Tab 07/26/2017 7 trimethoprim-polymyx in b (POLYTRIM) Opht DropsIndications:Acu te bacterial conjunctivitis of both eyes Apply 1 Drop to eye every 4 hours for 5 days. 10 mL 07/26/2017 8 predniSONE (DELTASONE) 20 mg Oral TabletIndications:He rpes zoster without complication Take 1 Tab by mouth daily for 7 days. 7 Tab 07/26/2017 7 LORazepam (ATIVAN) 0.5 mg Oral TabletIndications:An xiety disorder, unspecified type Take 1 Tab by mouth every 8 hours as needed for Anxiety. 30 Tab 2 07/26/2017 9 valACYclovir (VALTREX) 1 gram Oral TabletIndications:He rpes zoster without complication Take 1 Tab by mouth every 8 hours for 7 days. 21 Tab 07/26/2017 7 documented in this encounter Progress Notes * Dora Hernandez MD - 07/26/2017 1:00 PM EDT Subjective Jac Garvin is a 76 y.o. male Subjective Chief Complaint Patient presents with ??? Rash Pt c/o rash all over his back, chest and neck ??? Watery Eye Pt also c/o watery eyes As above. Rash appeared Wednesday last week. Burning. Sensitive to touch. No new soap, lotion, etc. He used peroxide wipes which helped some. H/o allergies. Benadryl helping. Watery eyes but now has colored discharge. Needs refill of Lorazepam. Takes it PRN. No s/e from meds. Jac Garvin i here for follow up of chronic anxiety and medication management. Currently, He reports anxiety level as controlled with current treatments in place. He reports taking current medications 0-1 times per day. He is not having side effects from medications. He has abstained from alcohol while requiring this medication. Current limitations of anxiety symptoms include: ability to cope with day to day stress, and situations, without medication Doing well, No SE's with medication. No evidence of abuse/diversion. Pt informed and aware of medication's potential for abuse/dependence. Informed consents have been reviewed/signed for appropriate meds, Controlled Substance Agreement reviewed/signed, Comprehensive Urine Drug Screen, [place] ([place]), And SOAPP/or appropriate screening test done, and all up to date. Treatment Plan: See orders - Goal(s) for treatment is/are: decrease baseline anxiety and cope with stressful situations. Next evaluation will be in 6 months. By next evaluation, treatment failure will be considered if persistent symptoms Review of Systems Objective Objective BP 120/70 Pulse 54 Temp 98 ??F (36.7 ??C) (Oral) Ht 6' 3 (1.905 m) Wt 226 lb (102.5 kg) SpO2 98% BMI 28.25 kg/m?? Physical Exam Constitutional: He appears well-developed. No distress. Eyes: Erythema on both lower lids. Yellowish discharge on both eyes (L>R). Skin: Rash ( consistent with shingles. dermatome right C6-T2. pls see image. ) noted. Psychiatric: He has a normal mood and affect. His behavior is normal. Vitals reviewed. Assessment and Plan Jac was seen today for rash and watery eye. Diagnoses and all orders for this visit: Herpes zoster without complication - valACYclovir (VALTREX) 1 gram Oral Tablet; Take 1 Tab by mouth every 8 hours for 7 days. - predniSONE (DELTASONE) 20 mg Oral Tablet; Take 1 Tab by mouth daily for 7 days. - AMB REFERRAL TO OPHTHALMOLOGY - Discontinue: acetaminophen-codeine (TYLENOL #3) 300-30 mg Oral Tablet; Take 1 Tab by mouth every 6 hours as needed for Pain. - acetaminophen-codeine (TYLENOL #3) 300-30 mg Oral Tablet; Take 1 Tab by mouth every 6 hours as needed for Pain. Advised on use and potential s/e of new rx. Anxiety disorder, unspecified type - LORazepam (ATIVAN) 0.5 mg Oral Tablet; Take 1 Tab by mouth every 8 hours as needed for Anxiety. UDS UTD. No red flags. Acute bacterial conjunctivitis of both eyes - trimethoprim-polymyxin b (POLYTRIM) Opht Drops; Apply 1 Drop to eye every 4 hours for 5 days. - AMB REFERRAL TO OPHTHALMOLOGY Return if symptoms worsen or fail to improve. Patient and Spouse was educated regarding the diagnosis, medication/treatment, goals, self-management tools and instructions based on their care plan. They verbalized full understanding of the education given on the After Visit Summary [AVS] for today's visit. They received a copy of the AVS in writing. A new medicine was prescribed during this office visit. I did discuss the reason for prescribing this new medication. I also informed of possible likely side effects, but also encouraged them to readthe medication insert that will accompany their prescription [...] inquired of any questions and answered accordingly. Dora Hernandez MD documented in this encounter Plan of Treatment Scheduled Referrals Name Type Priority Associated Diagnoses Orde r Schedule AMB REFERRAL TO OPHTHALMOLOGY Outpatient Referral Routine Herpes zoster without complication Acute bacterial conjunctivitis of both eyes Ordered: 07/26/2017 documented as of this encounter Goals Goal [...] as of this encounter Visit Diagnoses Diagnosis Herpes zoster without complication- Primary Anxiety disorder, unspecified type Acute bacterial conjunctivitis of both eyes documented in this encounter Discontinued Medications Medication Sig Discontinue Reason Start Date End Da te LORazepam (ATIVAN) 0.5 mg Oral TabletIndications:Anxiety disorder, unspecified type Take 1 Tab by mouth every 8 hours as needed for Anxiety. Reorder 12/01/2016 07/26/2017 acetaminophen-codeine (TYLENOL #3) 300-30 mg Oral TabletIndications:Herpes zoster without complication Take 1 Tab by mouth every 6 hours as needed for Pain. Reorder 07/26/2017 07/26/2017 documented as of this encounter Additional Health Concerns Assessment Noted Time A fall risk assessment has been complete d for the patient 12/01/2016 9:10 AM EST documented as of this encounter Care Teams Private Household Worker Relationship Specialty Start Date End Date Dora Hernandez MD [address] [facility] [place] [address] PCP - General Family Medicine 12/24/15 documented as of this encounter
--- OUTSIDE RECORDS SUMMARY | 2024-09-12 12:47 | XMS_ITS | Encounter Summary ---
Author Organization [place] [address] Care Team Providers Care Business Teacher Name Role Phone Dora Hernandez MD Primary Care Provider [phone] Encounter Details Date Type Department Care Team (Late st Contact Info) Description 05/06/2018 Orders Only [facility] [address] [place] [address] Ree Stout CCMA Essential hypertension Social History Tobacco Use Types [...] 1 Tab by mouth daily. 30 Tab 05/06/2018 06/06/2018 amLODIPine (NORVASC) 10 mg Oral Tablet Take 1 Tab by mouth daily. 30 Tab 05/06/2018 06/06/2018 documented in this encounter Plan of Treatment [...] 1 Tab by mouth daily. Reorder 10/01/2016 05/06/2018 losartan-hydrochlorothiazi de (HYZAAR) 50-12.5 mg Oral TabletIndications:Essentia l hypertension Take 1 Tab by mouth daily. Reorder 12/15/2017 05/06/2018 documented as of this encounter Additional Health Concerns Assessment Noted Time A fall risk assessment has been complete d for the patient 12/01/2016 9:10 AM EST documented as of this encounter Care Teams Business Teacher Relationship Specialty Start Date End Date Dora Hernandez MD [address] [facility] [place], [place] [phone] PCP - General Family Medicine 12/24/15 documented as of this encounter
--- OUTSIDE RECORDS SUMMARY | 2024-09-12 12:47 | XMS_ITS | Encounter Summary ---
Author Organization [place] [address] Care Team Providers Care Certification And Selection Specialist Name Role Phone Dora Hernandez MD Primary Care Provider [phone] Reason for Referral * MRI/CAT Scan (Routine) - Closed Specialty Diagnoses / Procedures Referred By Contac t Referred To Contact Radiology Diagnoses Mass of joint of right shoulder Procedures MRI SHOULDER RIGHT WO CONTRAST Dora Hernandez MD [address] [place] [address] Phone: tel: fax: Referral ID Status Reason Start Date Expiration Date Visits Re quested Visits Authorized [id number] Closed 05/06/2017 05/06/2018 1 1 Encounter Details Date Type Department Care Team (Late st Contact Info) Description 05/06/2017 Orders Only [facility] [address] [place] [address] oDra Hernandez MD [address] [place] [address] Mass of joint of right shoulder (Primary Dx) Social History Tobacco Use Types [...] as of this encounter Plan of Treatment Scheduled Orders Name Type Priority Associated Diagnoses Orde r Schedule MRI SHOULDER RIGHT WO CONTRAST Imaging Routine Mass of joint of right shoulder 1 Occurrences starting 05/06/2017 until 05/06/2018 documented as of this encounter Goals Goal Patient Goal Type Associated Problems Recent Progress Patient-Stated? Author Blood Pressure < 140/90 Blood Pressure 110/78(2023 11:26 AM EDT) Ember Keenan, RN Maintain a healthy diet, exercise regularly and maintain an ideal body weight General No Kim Solis RMA Stay Tobacco Free Lifestyle No Kim Solis RMA documented as of this encounter Visit Diagnoses Diagnosis Mass of joint of right shoulder- Primary documented in this encounter Additional Health Concerns Assessment Noted Time A fall risk assessment has been complete d for the patient 12/01/2016 9:10 AM EST documented as of this encounter Care Teams Certification And Selection Specialist Relationship Specialty Start Date End Date Dora Hernandez MD [address] [place] [phone] PCP - General Family Medicine 12/24/15 documented as of this encounter
--- OUTSIDE RECORDS SUMMARY | 2024-09-12 12:47 | XMS_ITS | Encounter Summary ---
Author Organization [place] [address] Care Team Providers Care Ice Cream Dipper Name Role Phone Dora Hernandez MD Primary Care Provider [phone] Reason for Visit * Reason Comments Medication Refill Encounter Details Date Type Department Care Team (Late st Contact Info) Description 03/29/2019 [facility] [place] [place] [address] [place] [address] Dora Hernandez MD [address] [place] [address] Medication Refill Social History Tobacco [...] documented as of this encounter Care Teams Ice Cream Dipper Relationship Specialty Start Date End Date Dora Hernandez MD [address] [facility] [place] [phone] PCP - General Family Medicine 12/24/15 documented as of this encounter
--- OUTSIDE RECORDS SUMMARY | 2024-09-12 12:47 | XMS_ITS | Encounter Summary ---
Author Organization [place] [address] Care Team Providers Care Credit Card Specialist Name Role Phone Dora Hernandez MD Primary Care Provider [phone] Reason for Referral * Vascular Imaging (Routine) - Closed Specialty Diagnoses / Procedures Referred By Contac t Referred To Contact Radiology Diagnoses Screening for AAA (abdominal aortic aneurysm) Procedures [facility] AAA SCREENING EXAM MEDICARE Dora Hernandez MD [address] [place] [address] Phone: tel: fax: Referral ID Status Reason Start Date Expiration Date Visits Re quested Visits Authorized [id number] Closed 12/01/2016 12/01/2018 1 1 Reason for Visit * Vascular Imaging (Routine) - Closed Specialty Diagnoses / Procedures Referred By Contac t Referred To Contact Radiology Diagnoses Screening for AAA (abdominal aortic aneurysm) Procedures [facility] AAA SCREENING EXAM MEDICARE Dora Hernandez MD [address] [facility] [place] [address] Phone: tel: fax: Referral ID Status Reason Start Date Expiration Date Visits Re quested Visits Authorized [id number] Closed 12/01/2016 12/01/2018 1 1 Encounter Details Date Type Department Care Team (Latest Contact Info) Description 12/30/2016 9:24 AM EST - 12/30/2016 11:59 PM EST Hospital Encounter [facility] [place] [address] Dora Hernandez MD [address] [facility] [address] [place] [address] Screening for AAA (abdominal aortic aneurysm) Discharge Disposition: Home or Self Care Social [...] Canela RN documented as of this encounter Procedures Procedure Name Priority Date/Time Associated Diagnosis Comments [facility] AAA SCREENING EXAM MEDICARE Routine 12/30/2016 10:18 AM EST Screening for AAA (abdominal aortic aneurysm) documented in this encounter Results * [facility] AAA SCREENING EXAM MEDICARE (12/30/2016 10:18 [...] visualization and measurements of the aorta, possiblecyst. us Dora Hernandez MD IMG VASCULAR ORDERABLES Final R esult documented in this encounter Visit Diagnoses Diagnosis Screening for AAA (abdominal aortic aneurysm) Screening for other and unspecified cardiovascular conditions documented in this encounter Additional Health Concerns Assessment Noted Time A fall risk assessment has been complete d for the patient 12/01/2016 9:10 AM EST documented as of this encounter Care Teams Credit Card Specialist Relationship Specialty Start Date End Date Dora Hernandez MD [address] [place] [address] PCP - General Family Medicine 12/24/15 documented as of this encounter
--- OUTSIDE RECORDS SUMMARY | 2024-09-12 12:47 | XMS_ITS | Encounter Summary ---
Author Organization [place] [address] Care Team Providers Care Counselor Aid Name Role Phone Dora Hernandez MD Primary Care Provider [phone] Reason for Visit * Reason Comments Medication Refill Encounter Details Date Type Department Care Team (Late st Contact Info) Description 10/01/2017 [facility] [address] [place] [address] Dora Hernandez MD [address] [place] [address] Medication Refill Social History Tobacco [...] TAKE 1 TABLET EVERY DAY 90 Tab 3 10/01/2017 07/19/2018 documented in this encounter Plan of Treatment [...] documented as of this encounter Care Teams Counselor Aid Relationship Specialty Start Date End Date Dora Hernandez MD [address] [place] [address] PCP - General Family Medicine 12/24/15 documented as of this encounter
--- OUTSIDE RECORDS SUMMARY | 2024-09-12 12:47 | XMS_ITS | Encounter Summary ---
Author Organization [place] [address] Care Team Providers Care Magnet Maker Name Role Phone Dora Hernandez MD Primary Care Provider [phone] Reason for Visit * Reason Comments Medication Refill Encounter Details Date Type Department Care Team (Late st Contact Info) Description 10/01/2016 Refill [facility] [address] [place] [address] Dora Hernandez MD [address] [place] [address] Medication Refill Social History Tobacco [...] Diagnoses Not on filedocumented in this encounter Care Teams Magnet Maker Relationship Specialty Start Date End Date Dora Hernandez MD [address] [place] [address] PCP - General Family Medicine 12/24/15 documented as of this encounter
--- OUTSIDE RECORDS SUMMARY | 2024-09-12 12:47 | XMS_ITS | Encounter Summary ---
Author Organization [place] [address] Care Team Providers Care Revenue Stamp Cutter Name Role Phone Dora Hernandez MD Primary Care Provider [phone] Reason for Visit * Reason Comments Medication Refill Encounter Details Date Type Department Care Team (Late st Contact Info) Description 10/04/2018 [facility] [address] [place] [address] Dora Hernandez MD [address] [place] [address] Medication Refill Social History Tobacco [...] Date amLODIPine (NORVASC) 10 mg Oral Tablet TAKE 1 TABLET EVERY DAY 90 Tab 10/05/2018 12/05/2018 losartan-hydrochlo rothiazide (HYZAAR) 50-12.5 mg Oral Tablet TAKE 1 TABLET EVERY DAY 90 Tab 10/05/2018 12/05/2018 documented in this encounter Plan of Treatment [...] zide (HYZAAR) 50-12.5 mg Oral Tablet TAKE 1 TABLET EVERY DAY Reorder 05/26/2018 10/04/2018 amLODIPine (NORVASC) 10 mg Oral Tablet TAKE 1 TABLET EVERY DAY Reorder 05/26/2018 10/04/2018 documented as of this encounter Additional Health Concerns Assessment Noted Time A fall risk assessment has been complete d for the patient 12/01/2016 9:10 AM EST documented as of this encounter Care Teams Revenue Stamp Cutter Relationship Specialty Start Date End Date Dora Hernandez MD [address] [facility] [place] [address] PCP - General Family Medicine 12/24/15 documented as of this encounter
--- OUTSIDE RECORDS SUMMARY | 2024-09-12 12:47 | XMS_ITS | Encounter Summary ---
Author Organization [place] [address] Care Team Providers Care Old Testament Professor Name Role Phone Dora Hernandez MD Primary Care Provider [phone] Reason for Visit * Reason Comments Medication Refill Encounter Details Date Type Department Care Team (Late st Contact Info) Description 05/30/2018 [facility] [place] [address] [place] [address] Dora Hernandez MD [address] [place] [address] Medication Refill Social History Tobacco [...] documented as of this encounter Care Teams Old Testament Professor Relationship Specialty Start Date End Date Dora Hernandez MD [address] [facility] [place] [phone] PCP - General Family Medicine 12/24/15 documented as of this encounter
--- OUTSIDE RECORDS SUMMARY | 2024-09-12 12:47 | XMS_ITS | Encounter Summary ---
Author Organization [place] [address] Care Team Providers Care Transformation Analyst Name Role Phone Dora Hernandez MD Primary Care Provider [phone] Reason for Visit * Reason Comments Medication Refill Encounter Details Date Type Department Care Team (Late st Contact Info) Description 10/28/2017 [facility] [address] [place] [address] Dora Hernandez MD [address] [place] [address] Medication Refill Social History Tobacco [...] Refills Last Filled Start Date End Date trimethoprim-polymyx in b (POLYTRIM) Opht DropsIndications:Acu te bacterial conjunctivitis of both eyes INSTILL ONE DROP TO THE AFFECTED EYE(S) EVERY 4 HOURS FOR 5 DAYS 10 mL 10/29/2017 9 documented in this encounter Plan of [...] as of this encounter Visit Diagnoses Diagnosis Acute bacterial conjunctivitis of both eyes documented in this encounter Discontinued Medications Medication Sig Discontinue Reason Start Date End Da te trimethoprim-polymyxin b (POLYTRIM) Opht DropsIndications:Acute bacterial conjunctivitis of both eyes Apply 1 Drop to eye every 4 hours for 5 days. Reorder 07/26/2017 10/28/2017 documented as of this encounter Additional Health Concerns Assessment Noted Time A fall risk assessment has been complete d for the patient 12/01/2016 9:10 AM EST documented as of this encounter Care Teams Transformation Analyst Relationship Specialty Start Date End Date Dora Hernandez MD [address] [facility] [place] [phone] PCP - General Family Medicine 12/24/15 documented as of this encounter
--- OUTSIDE RECORDS SUMMARY | 2024-09-12 12:47 | XMS_ITS | Encounter Summary ---
Author Organization [place] [address] Care Team Providers Care Naval Aircrewman Tactical Helicopter Name Role Phone Dora Hernandez MD Primary Care Provider [phone] Reason for Visit * Reason Comments Medication Refill Encounter Details Date Type Department Care Team (Late st Contact Info) Description 07/19/2017 [facility] [address] [place] [address] Dora Hernandez MD [address] [place] [address] Medication Refill Social History Tobacco [...] 1 TABLET EVERY DAY 90 Tab 3 07/20/2017 05/26/2018 documented in this encounter Miscellaneous Notes * Telephone Encounter - Aurelia Saldana RMA - 07/20/2017 9:20 AM EDT approved documented in this encounter [...] documented as of this encounter Care Teams Naval Aircrewman Tactical Helicopter Relationship Specialty Start Date End Date Dora Hernandez MD [address] [facility] [place] [phone] PCP - General Family Medicine 12/24/15 documented as of this encounter
--- OUTSIDE RECORDS SUMMARY | 2024-09-12 12:47 | XMS_ITS | Encounter Summary ---
Author Organization [place] [address] Care Team Providers Care Pathology Laboratory Director Name Role Phone Dora Hernandez MD Primary Care Provider Reason for Visit * Reason Comments Medication Refill Encounter Details Date Type Department Care Team (Late st Contact Info) Description 05/26/2018 Refill [facility] [address] [place] [address] Dora Hernandez MD [address] [place] [address] Medication Refill Social History Tobacco [...] TAKE 1 TABLET EVERY DAY 90 Tab 1 05/26/2018 10/04/2018 losartan-hydrochlo rothiazide (HYZAAR) 50-12.5 mg Oral Tablet TAKE 1 TABLET EVERY DAY 90 Tab 1 05/26/2018 10/04/2018 documented in this encounter Plan of Treatment [...] Tablet TAKE 1 TABLET EVERY DAY Reorder 07/20/2017 05/26/2018 documented as of this encounter Additional Health Concerns Assessment Noted Time A fall risk assessment has been complete d for the patient 12/01/2016 9:10 AM EST documented as of this encounter Care Teams Pathology Laboratory Director Relationship Specialty Start Date End Date Dora Hernandez MD [address] [place] [address] PCP - General Family Medicine 12/24/15 documented as of this encounter
--- OUTSIDE RECORDS SUMMARY | 2024-09-12 12:47 | XMS_ITS | Encounter Summary ---
Author Organization [place] [address] Care Team Providers Care Supervisor Mold Construction Name Role Phone Dora Hernandez MD Primary Care Provider [phone] Reason for Visit * Reason Onset Date Comments Results 12/16/2016 Encounter Details Date Type Department Care Team (Late st Contact Info) Description 12/16/2016 Telephone [facility] [address] [facility] [place] [address] [place] [address] Dora Hernandez MD [address] [facility] [place] [address] Results Social History Tobacco Use [...] Telephone Encounter - Aurelia Saldana RMA - 12/25/2016 3:07 PM EST See result note 12/25/16 * Telephone Encounter - Kathrine Myrick - 12/16/2016 9:55 AM EST [facility]. Thanks. documented in this encounter Plan of [...] documented as of this encounter Care Teams Supervisor Mold Construction Relationship Specialty Start Date End Date Dora Hernandez MD [address] [facility] [place] [phone] PCP - General Family Medicine 12/24/15 documented as of this encounter
--- OUTSIDE RECORDS SUMMARY | 2024-09-12 12:47 | XMS_ITS | Encounter Summary ---
Author Organization [place] [address] Care Team Providers Care Park Interpretive Specialist Name Role Phone Dora Hernandez MD Primary Care Provider [phone] Reason for Visit * Reason Comments Medication Refill Encounter Details Date Type Department Care Team (Late st Contact Info) Description 01/01/2017 [facility] [address] [place] [address] Dora Hernandez MD [address] [place] [address] Medication Refill Social History Tobacco [...] Refills Last Filled Start Date End Date fUROsemide (LASIX) 20 mg Oral TabletIndications: Bilateral lower extremity edema TAKE ONE TABLET BY MOUTH DAILY NEEDED FOR SWELLING 30 Tab 2 01/01/2017 9 KLOR-CON M10 10 mEq Oral Tab Sust.Rel. Particle/CrystalIn dications:Bilatera l lower extremity edema TAKE ONE TABLET BY MOUTH DAILY NEEDED *TAKE ONLY WHEN TAKING LASIX FOR LEG SWELLING* 30 Tab 2 01/01/2017 9 documented in this encounter Plan of Treatment Not on file documented as of this encounter Goals Goal Patient Goal Type Associated Problems Recent Progress Patient-Stated? Author Blood Pressure < 140/90 Blood Pressure 110/78( 024 11:26 AM EDT) Ember Keenan RN documented as of this encounter Visit Diagnoses Diagnosis Bilateral lower extremity edema Edema documented in this encounter Discontinued Medications Medication Sig Discontinue Reason Start Date End Da te potassium chloride SA (K-DUR;KLOR-CON) 10 mEq Oral Tab Sust.Rel. Particle/CrystalIndicati ons:Bilateral lower extremity edema Take 1 Tab by mouth daily as needed (take only when taking Lasix for leg swelling.). Reorder 12/01/2016 01/01/2017 fUROsemide (LASIX) 20 mg Oral TabletIndications:Bilate ral lower extremity edema Take 1 Tab by mouth daily as needed (swelling). Reorder 12/01/2016 01/01/2017 documented as of this encounter Additional Health Concerns Assessment Noted Time A fall risk assessment has been complete d for the patient 12/01/2016 9:10 AM EST documented as of this encounter Care Teams Park Interpretive Specialist Relationship Specialty Start Date End Date Dora Hernandez MD [address] [place] [address] PCP - General Family Medicine 12/24/15 documented as of this encounter
--- OUTSIDE RECORDS SUMMARY | 2024-09-12 12:47 | XMS_ITS | Encounter Summary ---
Author Organization [place] [address] Care Team Providers Care Superintendent Refuse Disposal Name Role Phone Dora Hernandez MD Primary Care Provider [phone] Reason for Visit * Reason Comments Medication Refill Encounter Details Date Type Department Care Team (Late st Contact Info) Description 05/03/2018 [facility] [address] [place] [address] Dora Hernandez MD [address] [place] [address] Medication Refill Social History Tobacco [...] documented as of this encounter Care Teams Superintendent Refuse Disposal Relationship Specialty Start Date End Date Dora Hernandez MD [address] [facility] [place] [phone] PCP - General Family Medicine 12/24/15 documented as of this encounter
--- OUTSIDE RECORDS SUMMARY | 2024-09-12 12:47 | XMS_ITS | Encounter Summary ---
Author Organization [place] [address] Care Team Providers Care Assembler Fitter Name Role Phone Dora Hernandez MD Primary Care Provider [phone] Encounter Details Date Type Department Care Team (Late st Contact Info) Description 02/08/2019 Orders Only SEP [facility] [address] [place] [address] Ree Stout CCMA Essential hypertension [...] 1 Tab by mouth daily. 30 Tab 02/08/2019 06/19/2019 amLODIPine (NORVASC) 10 mg Oral Tablet Take 1 Tab by mouth daily. 30 Tab 02/08/2019 09/28/2019 documented in this encounter Plan of Treatment [...] amLODIPine (NORVASC) 10 mg Oral Tablet TAKE ONE TABLET BY MOUTH DAILY Reorder 06/06/2018 02/08/2019 losartan-hydrochlorothiaz fadia (HYZAAR) 50-12.5 mg Oral TabletIndications:Essenti al hypertension TAKE ONE TABLET BY MOUTH DAILY Reorder 06/06/2018 02/08/2019 documented as of this encounter Additional Health Concerns Assessment Noted Time A fall risk assessment has been complete d for the patient 12/01/2016 9:10 AM EST documented as of this encounter Care Teams Assembler Fitter Relationship Specialty Start Date End Date Dora Hernandez MD [address] [facility] [place] [phone] PCP - General Family Medicine 12/24/15 documented as of this encounter
--- OUTSIDE RECORDS SUMMARY | 2024-09-12 12:47 | XMS_ITS | Encounter Summary ---
Author Organization [place] [address] Care Team Providers Care Blood And Plasma Laboratory Assistant Name Role Phone Dora Hernandez MD Primary Care Provider [phone] Reason for Visit * Reason Onset Date Comments Care Management - Chart Review 12/01/2016 H CA Encounter Details Date Type Department Care Team (Late st Contact Info) Description 12/01/2016 Patient Outreach [facility] [address] [place] [address] Ember Canela, RN Care Management - Chart Review ([facility]) Social History Tobacco Use Types Packs/Day Years [...] Miscellaneous Notes * Telephone Encounter - Ember Canela RN - 12/01/2016 8:10 AM EST [facility] reviewed chart for upcomming appointment. Patient does not meet level 2 criteria at this time. Status level changed or will remain at 1. [facility] will reassess as needed. documented in this encounter Plan of Treatment Not on file documented as of this encounter Goals Goal Patient Goal Type Associated Problems Recent Progress Patient-Stated? Author Blood Pressure < 140/90 Blood Pressure 110/78( 024 11:26 AM EDT) Ember Keenan, ASHLEY documented as of this encounter Visit Diagnoses Not on filedocumented in this encounter Additional Health Concerns Assessment Noted Time A fall risk assessment has been complete d for the patient 12/01/2016 9:10 AM EST documented as of this encounter Care Teams Blood And Plasma Laboratory Assistant Relationship Specialty Start Date End Date Dora Hernandez MD [address] [place] [address] PCP - General Family Medicine 12/24/15 documented as of this encounter
--- OUTSIDE RECORDS SUMMARY | 2024-09-12 12:47 | XMS_ITS | Encounter Summary ---
Author Organization [place] [address] Care Team Providers Care Tool And Die Manager Name Role Phone Dora Hernandez MD Primary Care Provider [phone] Reason for Visit * Reason Comments Medication Refill Encounter Details Date Type Department Care Team (Late st Contact Info) Description 12/05/2018 [facility] [address] [place] [address] Dora Hernandez MD [address] [place] [address] Medication Refill Social History Tobacco [...] TAKE 1 TABLET EVERY DAY 90 Tab 12/06/2018 08/13/2020 amLODIPine (NORVASC) 10 mg Oral Tablet TAKE 1 TABLET EVERY DAY 90 Tab 12/06/2018 11/06/2020 documented in this encounter Plan of Treatment [...] Tablet TAKE 1 TABLET EVERY DAY Reorder 10/05/2018 12/05/2018 losartan-hydrochlorothia zide (HYZAAR) 50-12.5 mg Oral Tablet TAKE 1 TABLET EVERY DAY Reorder 10/05/2018 12/05/2018 documented as of this encounter Additional Health Concerns Assessment Noted Time A fall risk assessment has been complete d for the patient 12/01/2016 9:10 AM EST documented as of this encounter Care Teams Tool And Die Manager Relationship Specialty Start Date End Date Dora Hernandez MD [address] [facility] [place] [address] PCP - General Family Medicine 12/24/15 documented as of this encounter
--- OUTSIDE RECORDS SUMMARY | 2024-09-12 12:47 | XMS_ITS | Encounter Summary ---
Author Organization [place] [address] Care Team Providers Care Literacy Specialist Name Role Phone Dora Hernandez MD Primary Care Provider [phone] Reason for Visit * Reason Onset Date Comments Medication Refill 05/03/2019 Encounter Details Date Type Department Care Team (Late st Contact Info) Description 05/03/2019 Refill SEP Gloria [facility] [address] [place] [address] Dora Hernandez MD [address] [place] [address] Medication Refill Social History Tobacco [...] * Telephone Encounter - Mignon Oswald - 05/05/2019 10:02 AM EDT lvm advising pt to call and set up an appt before refills can be sent to Pharmacy. * Telephone Encounter - Ember Cabrera - 05/03/2019 3:50 PM EDT I found his chart and LVM for him to call and schedule an appt for med check up. * Telephone Encounter - Ree Stout CCMA - 05/03/2019 2:57 PM EDT Pt has another chart and it is not the correct chart. Pt is requesting refills on Losartan HCTZ- 50-12.5 1 po qd Amlodipine 10 mg 1 po qd Metoprolol ER 100 mg 1 po qd Pt hasn't been seen since 07/26/2017- Pt needs to see PCP before refills are approved documented in this encounter Plan of [...] documented as of this encounter Care Teams Literacy Specialist Relationship Specialty Start Date End Date Dora Hernandez MD [address] [facility] [place] [address] PCP - General Family Medicine 12/24/15 documented as of this encounter
--- OUTSIDE RECORDS SUMMARY | 2024-09-12 12:47 | XMS_ITS | Encounter Summary ---
Author Organization [place] [address] Care Team Providers Care Bookmobile Librarian Name Role Phone Dora Hernandez MD Primary Care Provider [phone] Reason for Visit * Reason Comments Medication Refill Encounter Details Date Type Department Care Team (Late st Contact Info) Description 06/08/2018 Refill SEP Gloria [facility] [address] [place] [address] Dora Hernandez MD [address] [place] [address] Medication Refill Social History Tobacco [...] documented as of this encounter Care Teams Bookmobile Librarian Relationship Specialty Start Date End Date Dora Hernandez MD [address] [place] [address] PCP - General Family Medicine 12/24/15 documented as of this encounter
--- OUTSIDE RECORDS SUMMARY | 2024-09-12 12:47 | XMS_ITS | Encounter Summary ---
Author Organization [place] [address] Care Team Providers Care Middle School Band Teacher Name Role Phone Dora Hernandez MD Primary Care Provider [phone] Reason for Visit * Reason Onset Date Comments Medication Management 04/21/2017 Encounter Details Date Type Department Care Team (Late st Contact Info) Description 04/21/2017 Telephone SEP Gloria [facility] [address] [place] [address] Dora Hernandez MD [address] [place] [address] Medication Management Social History Tobacco [...] 1 Tab by mouth daily. 30 Tab 6 04/21/2017 12/15/2017 documented in this encounter Miscellaneous Notes * Telephone Encounter - Grace Rojas Malcolm - 04/21/2017 4:25 PM EDT E scribed Thank you * Telephone Encounter - Ember Cabrera - 04/21/2017 4:17 PM EDT Pharmacy calling for losartan 50-12.5 mg Requesting a 90 day supply documented in this encounter Plan of Treatment [...] TAKE ONE TABLET BY MOUTH DAILY Reorder 03/29/2017 04/21/2017 documented as of this encounter Additional Health Concerns Assessment Noted Time A fall risk assessment has been complete d for the patient 12/01/2016 9:10 AM EST documented as of this encounter Care Teams Middle School Band Teacher Relationship Specialty Start Date End Date Dora Hernandez MD [address] [facility] [place] [id number] PCP - General Family Medicine 12/24/15 documented as of this encounter
--- OUTSIDE RECORDS SUMMARY | 2024-09-12 12:47 | XMS_ITS | Encounter Summary ---
Author Organization [place] [address] Care Team Providers Care Account Manager Name Role Phone Dora Hernandez MD Primary Care Provider [phone] Reason for Referral * Vascular Imaging (Routine) - Closed Specialty Diagnoses / Procedures Referred By Contac t Referred To Contact Radiology Diagnoses Screening for AAA (abdominal aortic aneurysm) Procedures [facility] AAA SCREENING EXAM MEDICARE Dora Hernandez MD [address] [place] [address] Phone: tel: fax: Referral ID Status Reason Start Date Expiration Date Visits Re quested Visits Authorized [id number] Closed 12/01/2016 12/01/2018 1 1 Reason for Visit * Reason Comments Edema Pt c/o hands, feet, and legs swelling Encounter Details Date Type Department Care Team (Late st Contact Info) Description 12/01/2016 9:00 AM EST Office Visit ANA Gloriapatrice OBRIEN [address] [facility] [place] [address] Dora Hernandez MD [address] [place] [address] Bilateral lower extremity edema (Primary Dx); Pulmonary nodule, right; Essential hypertension; Anxiety disorder, unspecified type; Former smoker; Screening for AAA (abdominal aortic aneurysm); Encounter for long-term current use of medication; Change in bowel movement Social History Tobacco Use Types Packs/Day Years [...] Sign Reading Time Taken Comments Blood Pressure 130/80 12/01/2016 9:11 AM EST Pulse 83 12/01/2016 9:11 AM EST Temperature 36.7 ??C (98.1 ??F) 12/01/2016 9:11 AM ES T Respiratory Rate - - Oxygen Saturation 99% 12/01/2016 9:11 AM EST Inhaled Oxygen Concentration - - Weight 106.6 kg (235 lb) 12/01/2016 9:11 AM EST Height 190.5 cm (6' 3 ) 12/01/2016 9:11 AM EST Body Mass Index 29.37 12/01/2016 9:11 AM EST documented in this encounter Ordered Prescriptions Prescription Sig Dispense Quantity Refills Last Filled Start Date End Date potassium chloride SA (K-DUR;KLOR-CON) 10 mEq Oral Tab Sust.Rel. Particle/CrystalIn dications:Bilatera l lower extremity edema Take 1 Tab by mouth daily as needed (take only when taking Lasix for leg swelling.). 30 Tab 12/01/2016 01/01/2017 fUROsemide (LASIX) 20 mg Oral TabletIndications: Bilateral lower extremity edema Take 1 Tab by mouth daily as needed (swelling). 30 Tab 12/01/2016 01/01/2017 LORazepam (ATIVAN) 0.5 mg Oral TabletIndications: Anxiety disorder, unspecified type Take 1 Tab by mouth every 8 hours as needed for Anxiety. 30 Tab 2 12/01/2016 07/26/2017 docusate sodium (COLACE) 100 mg Oral CapsuleIndications :Change in bowel movement Take 1 Cap by mouth daily. 30 Cap 5 12/01/2016 06/19/2019 documented in this encounter Progress Notes * Dora Hernandez MD - 12/01/2016 9:00 AM EST Subjective Jac Bharathi is a 75 y.o. male Subjective Chief Complaint Patient presents with ??? Edema Pt c/o hands, feet, and legs swelling Pt c/o Leg swelling. Chronic. Just getting worse. Denies SOB. No CP. Admits to not watching salt in diet. Also c/o constipation. Had a negative colonoscopy last year. He takes OTC laxatives, PRN miralax, citrucel. However, he says he has bowel movement 1-2 a day. Stool is soft. He said he used to have 2-4 BMs a day - his normal. Denies abd pain, n/v. H/o anxiety. Dr Lake rxed him Lorazepam. He has been taking this rx for several years. He stillhas a few tabs from rx bottle he brought with him today. He was rxed #90 in April 2016. Pt takes lorazepam 2-3 times a week. Denies ETOH. No s/e from meds. Review of Systems Objective Objective Visit Vitals ??? BP 130/80 ??? Pulse 83 ??? Temp 98.1 ??F (36.7 ??C) (Oral) ??? Ht 6' 3 (1.905 m) ??? Wt 235 lb (106.6 kg) ??? SpO2 99% ??? BMI 29.37 kg/m2 Physical Exam Constitutional: He is oriented to person, place, and time. He appears well- developed. No distress. Cardiovascular: Normal rate and regular rhythm. Pulmonary/Chest: Effort normal and breath sounds normal. Abdominal: Soft. He exhibits no distension and no mass. There is no tenderness. Musculoskeletal: He exhibits edema (2+ bipedal). Neurological: He is alert and oriented to person, place, and time. Assessment and Plan Jac was seen today for edema. Diagnoses and all orders for this visit: Bilateral lower extremity edema - fUROsemide (LASIX) 20 mg Oral Tablet; Take 1 Tab by mouth daily as needed (swelling). - potassium chloride SA (K-DUR;KLOR-CON) 10 mEq Oral Tab Sust.Rel. Particle/Crystal; Take 1 Tab by mouth daily as needed (take only when taking Lasix for leg swelling.). Limit salt intake. Elevate legs. Advised on use and potential s/e of new rx. F/u prn. Pulmonary nodule, right Already sched for f/u Chest CT next month. Managed by Dr Burris. Essential hypertension Controlled. Anxiety disorder, unspecified type - LORazepam (ATIVAN) 0.5 mg Oral Tablet; Take 1 Tab by mouth every 8 hours as needed for Anxiety. - PDM,Benzodiazepines W/ Conf, Urine-[facility]; Future - HB-1 Custom UDS Panel-[facility]; Future Pt brought rx bottle from Dr Lake, he has 10 tabs left from last rx (#90, 04/2016). Controlled substance agreement and informed consent d/w pt. Pt verbalized understanding and signed the forms. Malachi today is as expected. UDS done today. Follow up in 6 months. Former smoker Screening for AAA (abdominal aortic aneurysm) - [facility] AAA SCREENING EXAM MEDICARE; Future Encounter for long-term current use of medication - PDM,Benzodiazepines W/ Conf, Urine-[facility]; Future - HB-1 Custom UDS Panel-[facility]; Future Change in bowel movement - docusate sodium (COLACE) 100 mg Oral Capsule; Take 1 Cap by mouth daily. Lengthy discussion about bowel habits. Reassurance since unremarkable colonoscopy, benign abd exam, and he has 1-2 BMs a day with soft stool. Cont fiber in diet. Try daily colace if he feels constipated, stop if he develops diarrhea. I recommended that he stop taking all OTCs he takes at home since he does not feel any has helped. Return if symptoms worsen or fail to improve. Patient was educated regarding the diagnosis, medication/treatment, goals, self- management tools and instructions based on their care [...] questions and answered accordingly. Dora Hernandez MD Chief Complaint Patient presents with ??? Edema Pt c/o hands, feet, and legs swelling Patient is here for re-evaluation of chronic anxiety. Currently, pt reports anxiety level as Controlled with current treatments in place. Pt is taking current medications 3 times per week. Patient isnot having side effects from medications. Pt has abstained from alcohol while requiring this medication. Current limitations of anxiety symptoms include: ability to sleep and ability to socially interact Review of Systems Please see previously completed ROS above Physical Exam: Visit Vitals ??? BP 130/80 ??? Pulse 83 ??? Temp 98.1 ??F (36.7 ??C) (Oral) ??? Ht 6' 3 (1.905 m) ??? Wt 235 lb (106.6 kg) ??? SpO2 99% ??? BMI 29.37 kg/m2 Psych: Pleasant. Cooperative. Good eye contact. Answers questions appropriately. Normal mood. Appropriate affect. Working Diagnosis (not symptoms): Anxiety Treatment Plan: See orders - Goal(s) for treatment is/are: {Prevent / abort anxiety attacks, Improve professional / educational performance and Henriette with stressful situations Next evaluation will be in 6 months By next evaluation, treatment failure will be considered if persistent symptoms, recurrent ED visits for episodes and poor work/school performance A/P: see above. documented in this encounter Plan of Treatment Scheduled Orders Name Type Priority Associated Diagnoses Orde r Schedule PDM,BENZODIAZEPINES W/ CONF, URINE-QUEST Lab Routine Anxiety disorder, unspecified type Encounter for long-term current use of medication 1 Occurrences starting 12/01/2016 until 12/02/2017 documented as of this encounter Goals Goal Patient Goal Type Associated Problems Recent Progress Patient-Stated? Author Blood Pressure < 140/90 Blood Pressure 110/78( 024 11:26 AM EDT) No Ember Canela RN documented as of this encounter Results * [facility] AAA SCREENING EXAM MEDICARE (12/30/2016 10:18 [...] IMG VASCULAR ORDERABLES Final R esult * (ABNORMAL) HB-1 CUSTOM UDS PANEL-QUEST (12/01/2016 10:17 PM EST) Prescribed Drug 1 Lorazepam [facility] 6-Acetylmorphine,GC/MS NEGATIVE <10 ng/mL [facility] medMATCH 6 Acetylmorphine CONSISTENT [facility] medMatch Comments [facility] Comment: medMATCH comments are: - present when drug test results may be the result of ?? metabolism of one or more drugs or when results are ?? inconsistent with prescribed medication(s) listed. - may be blank when drug results are consistent with ?? prescribed medication(s) listed. Prescribed Drug 1 Lorazepam [facility] Ritalinic Acid NEGATIVE <100 ng/mL [facility] medMATCH Ritalinic Acid CONSISTENT [facility] medMatch Comments [facility] Comment: medMATCH comments are: - present when drug test results may be the result of ?? metabolism of one or more drugs or when results are ?? inconsistent with prescribed medication(s) listed. - may be blank when drug results are consistent with ?? prescribed medication(s) listed. Prescribed Drug 1 Lorazepam [facility] Creatinine, Urine 34.0 > or = 20.0 mg/dL [facility] UA pH 7.54 4.5 - 9.0 [facility] Oxidant NEGATIVE <200 mcg/mL [facility] Amphetamines NEGATIVE <500 ng/mL [facility] Amphetamines CONSISTENT [facility] Barbiturates NEGATIVE <300 ng/mL [facility] med[facility] Barbiturates CONSISTENT [facility] Benzodiazepines POSITIVE(A) <100 ng/mL [facility] ALPHAHYDROXYALPRAZOLAM NEGATIVE <25 ng/mL [facility] medMATCH aOH alprazolam CONSISTENT [facility] ALPHAHYDROXYMIDAZOLAM NEGATIVE <50 ng/mL [facility] MEDMATCH AOH MIDAZOLAM CONSISTENT [facility] ALPHAHYDROXYTRIAZOLAM-QU EST NEGATIVE <50 ng/mL [facility] medMATCH aOH triazolam CONSISTENT [facility] Aminoclonazepam NEGATIVE <25 ng/mL [facility] Aminoclonazepam CONSISTENT [facility] Hydroxyethylflurazepam NEGATIVE <50 ng/mL [facility] MEDMATCH [place] ET FLURAZEPAM CONSISTENT [facility] LORAZEPAM-QUEST 162(H) <50 ng/mL [facility] medMATCH Lorazepam CONSISTENT [facility] NORDIAZEPAM-QUEST NEGATIVE <50 ng/mL [facility] medMATCH Nordiazepam CONSISTENT [facility] OXAZEPAM-QUEST NEGATIVE <50 ng/mL [facility] medMATCH Oxazepam CONSISTENT Q [facility] TEMAZEPAM-QUEST NEGATIVE <50 ng/mL [facility] medMATCH Temazepam CONSISTENT [facility] Marijuana Metabolite NEGATIVE <20 ng/mL [facility] medMATCH Marijuana Metab CONSISTENT [facility] Cocaine Metabolite NEGATIVE <150 ng/mL [facility] medMATCH Cocaine Metab CONSISTENT [facility] Methadone NEGATIVE <100 ng/mL [facility] medMATCH Methadone CONSISTENT [facility] Opiates NEGATIVE <100 ng/mL [facility] medMATCH Opiates CONSISTENT [facility] Oxycodone NEGATIVE <100 ng/mL [facility] medMATCH Oxycodone CONSISTENT [facility] medMatch Comments [facility] Comment: medMATCH comments are: - present when drug test results may be the result of ?? metabolism of one or more drugs or when results are ?? inconsistent with prescribed medication(s) listed. - may be blank when drug results are consistent with ?? prescribed medication(s) listed. URINE SPECIMEN COLLECTION, CLEAN CATCH / Unknown 12/01/2016 10:17 PM EST 12/02/2016 3:40 PM EST Narrative Resulting Agency Comment Performing Organization Information: ?Site ID: ?Name: [facility] ?Address: [address] [place] [id number] ?Director: Austin Rodrigues M.D. ?Site ID: ?Name: [facility] ?Address: [address] [facility] [place] [address] ?Director: Rocío Montilla Ph.D. Dora MCKEON-PDM ORDERABLE (NON-[facility]H) F inal Result makeristSHARRON LANGEE [address] [place] [phone] [place] [address] [facility] [address] [place] [address], [facility] documented in this encounter Visit Diagnoses Diagnosis Bilateral lower extremity edema- Primary Edema Pulmonary nodule, right Solitary pulmonary nodule Essential hypertension Unspecified essential hypertension Anxiety disorder, unspecified type Former smoker Personal history of tobacco use, presenting hazards to health Screening for AAA (abdominal aortic aneurysm) Screening for other and unspecified cardiovascular conditions Encounter for long-term current use of medication Change in bowel movement Other symptoms involving digestive system Screening for AAA (abdominal aortic aneurysm) Screening for other and unspecified cardiovascular conditions documented in this encounter Discontinued Medications Medication Sig Discontinue Reason Start Date End Da te senna-docusate (SENOKOT-S) 8.6-50 mg Oral Tablet Take by mouth nightly. Alternate therapy 12/01/2016 LORazepam (ATIVAN) 0.5 mg Oral TabletIndications:Anxiety disorder, unspecified anxiety disorder type Take 1 Tab by mouth every 8 hours as needed for Anxiety. Reorder 01/16/2016 12/01/2016 documented as of this encounter Additional Health Concerns Assessment Noted Time A fall risk assessment has been complete d for the patient 12/01/2016 9:10 AM EST documented as of this encounter Care Teams Account Manager Relationship Specialty Start Date End Date Dora Hernandez MD [address] [place] [address] PCP - General Family Medicine 12/24/15 documented as of this encounter
--- OUTSIDE RECORDS SUMMARY | 2024-09-12 12:47 | XMS_ITS | Encounter Summary ---
Author Organization [place] [address] Care Team Providers Care Iron Piler Name Role Phone Dora Hernandez MD Primary Care Provider [phone] Encounter Details Date Type Department Care Team (Latest Contact Info) Description 12/01/2016 10:17 PM EST - 12/01/2016 11:59 PM EST Hospital Encounter [facility] PROC[facility] [address] [place] [phone] Anxiety disorder, unspecified type; Encounter for long-term [...] Notes * Dora Hernandez MD - 12/01/2016 11:59 PM EST UDS Consistent. documented in this encounter Plan of Treatment Not on file documented as of this encounter Goals Goal Patient Goal Type Associated Problems Recent Progress Patient-Stated? Author Blood Pressure < 140/90 Blood Pressure 110/78( 024 11:26 AM EDT) Ember Keenan RN documented as of this encounter Procedures Procedure Name Priority Date/Time Associated Diagnosis Comments HB-1 CUSTOM UDS PANEL-QUEST Routine 12/01/2016 10:17 PM EST Anxiety disorder, unspecified type Encounter for long-term current use of medication documented in this encounter Results * (ABNORMAL) HB-1 CUSTOM UDS PANEL-QUEST (12/01/2016 [...] pH 7.54 4.5 - 9.0 [facility] Oxidant NEGATIVE <200 mcg/mL [facility] Amphetamines NEGATIVE <500 ng/mL [facility] medMATCH Amphetamines CONSISTENT [facility] Barbiturates NEGATIVE <300 ng/mL [facility] medMATCH Barbiturates CONSISTENT [facility] Benzodiazepines POSITIVE(A) <100 ng/mL [facility] ALPHAHYDROXYALPRAZOLAM NEGATIVE <25 ng/mL [facility] medMATCH aOH alprazolam CONSISTENT [facility] ALPHAHYDROXYMIDAZOLAM NEGATIVE <50 ng/mL [facility] AOH MIDAZOLAM CONSISTENT [facility] ALPHAHYDROXYTRIAZOLAM-QU EST NEGATIVE <50 ng/mL [facility] medMATCH aOH triazolam CONSISTENT [facility] Aminoclonazepam NEGATIVE <25 ng/mL [facility] Aminoclonazepam CONSISTENT [facility] Hydroxyethylflurazepam NEGATIVE <50 ng/mL [facility] MEDMATCH OH ET FLURAZEPAM CONSISTENT [facility] LORAZEPAM-QUEST 162(H) <50 ng/mL [facility] medMATCH Lorazepam CONSISTENT [facility] NORDIAZEPAM-QUEST NEGATIVE <50 ng/mL [facility] medMATCH Nordiazepam CONSISTENT [facility] [facility] OXAZEPAM-QUEST NEGATIVE <50 ng/mL [facility] [facility] medMATCH Oxazepam CONSISTENT Q [facility] TEMAZEPAM-QUEST NEGATIVE <50 ng/mL [facility] [facility] medMATCH Temazepam CONSISTENT [facility] Marijuana Metabolite NEGATIVE <20 ng/mL [facility] medMATCH Marijuana Metab [facility] Cocaine Metabolite NEGATIVE <150 ng/mL [facility] Cocaine Metab CONSISTENT [facility] Methadone NEGATIVE <100 ng/mL [facility] [facility] medMATCH Methadone CONSISTENT [facility] [facility] Opiates NEGATIVE <100 ng/mL [facility] [facility] medMATCH Opiates CONSISTENT [facility] Oxycodone NEGATIVE <100 ng/mL [facility] [facility] medMATCH Oxycodone CONSISTENT [facility] [facility] medMatch Comments [facility] Comment: medMATCH comments are: - present when [...] Comment Performing Organization Information: ?Site ID: ?Name: [facility] ?Address: [address] [place] [phone] ?Director: Austin Rodrigues M.D. ?Site ID: ?Name: [facility] ?Address: [address] [place] [phone] ?Director: Rocío Montilla Ph.D. Dora Hernandez MD [facility] ORDERABLE (NON-[facility]) F inal Result [facility] [address] [place], [place] [id number] [place] [address] [facility] [address] [place] [address] documented in this encounter Visit Diagnoses Diagnosis Anxiety disorder, unspecified type Encounter for long-term current use of medication documented in this encounter Orders Lab Orders Without Results Count Last Ordered D ate First Ordered Date PDM,BENZODIAZEPINES W/ CONF, URINE-QUEST 1 12/01/2016 documented in this encounter Additional Health Concerns Assessment Noted Time A fall risk assessment has been complete d for the patient 12/01/2016 9:10 AM EST documented as of this encounter Care Teams Iron Piler Relationship Specialty Start Date End Date Dora Hernandez MD [address] [facility] [place] [id number] PCP - General Family Medicine 12/24/15 documented as of this encounter
--- OUTSIDE RECORDS SUMMARY | 2024-09-12 12:47 | XMS_ITS | Encounter Summary ---
Author Organization [place] [address] Care Team Providers Care Profile Stitching Machine Operator Name Role Phone Dora Hernandez MD Primary Care Provider [phone] Reason for Visit * Reason Comments Medication Refill Encounter Details Date Type Department Care Team (Late st Contact Info) Description 11/30/2018 Refill SEP Gloria [facility] [address] [place] [address] Dora Hernandez MD [address] [place] [address] Medication Refill Social History Tobacco [...] TABLET EVERY DAY 90 Tab 12/01/2018 09/26/2020 documented in this encounter Plan of Treatment [...] hr TAKE 1 TABLET EVERY DAY Reorder 09/21/2018 11/30/2018 documented as of this encounter Additional Health Concerns Assessment Noted Time A fall risk assessment has been complete d for the patient 12/01/2016 9:10 AM EST documented as of this encounter Care Teams Profile Stitching Machine Operator Relationship Specialty Start Date End Date Dora Hernandez MD [address] [facility] [place] [address] PCP - General Family Medicine 12/24/15 documented as of this encounter
--- OUTSIDE RECORDS SUMMARY | 2024-09-12 12:47 | XMS_ITS | Encounter Summary ---
Author Organization [place] [address] Care Team Providers Care Mixer Runner Name Role Phone Dora Hernandez MD Primary Care Provider [phone] Reason for Visit * Reason Comments Medication Refill Encounter Details Date Type Department Care Team (Late st Contact Info) Description [facility]/06[facility] [address] [place] [address] Dora Hernandez MD [address] [place] [address] Medication Refill Social History Tobacco [...] ONE TABLET BY MOUTH DAILY 30 Tab 06/06/2018 02/08/2019 losartan-hydrochlo rothiazide (HYZAAR) 50-12.5 mg Oral TabletIndications: Essential hypertension TAKE ONE TABLET BY MOUTH DAILY 30 Tab 06/06/2018 02/08/2019 documented in this encounter Miscellaneous Notes * Telephone Encounter - Joselin Main RN - 06/06/2018 4:03 PM EDT Approved medication x 1, but needs to schedule appt. documented in this encounter Plan of Treatment [...] Take 1 Tab by mouth daily. Reorder 05/06/2018 06/06/2018 amLODIPine (NORVASC) 10 mg Oral Tablet Take 1 Tab by mouth daily. Reorder 05/06/2018 06/06/2018 documented as of this encounter Additional Health Concerns Assessment Noted Time A fall risk assessment has been complete d for the patient 12/01/2016 9:10 AM EST documented as of this encounter Care Teams Mixer Runner Relationship Specialty Start Date End Date Dora Hernandez MD [address] [facility] [place], [place] [id number] PCP - General Family Medicine 12/24/15 documented as of this encounter
--- OUTSIDE RECORDS SUMMARY | 2024-09-12 12:48 | XMS_ITS | Encounter Summary ---
Author Organization [place] [address] Care Team Providers Care Radio Station Operator Name Role Phone Dora Hernandez MD Primary Care Provider [phone] Reason for Visit * Reason Comments Medication Refill Encounter Details Date Type Department Care Team (Late st Contact Info) Description 07/16/2016 Refill SEP Gloria [facility] [address] [place] [address] Dora Hernandez MD [address] [place] [address] Medication Refill Social History Tobacco [...] on filedocumented in this encounter Care Teams Radio Station Operator Relationship Specialty Start Date End Date Dora Hernandez MD [address] [place] [address] PCP - General Family Medicine 12/24/15 documented as of this encounter
--- OUTSIDE RECORDS SUMMARY | 2024-09-12 12:48 | XMS_ITS | Encounter Summary ---
Author Organization [place] [address] Care Team Providers Care Off Track Betting Manager Name Role Phone Dora Hernandez MD Primary Care Provider [phone] Reason for Visit * Reason Onset Date Comments Medication Refill 07/01/2016 Encounter Details Date Type Department Care Team (Late st Contact Info) Description 07/01/2016 Telephone SEP Gloria [address] [place] [address] Dora Hernandez MD [address] [place] [address] Medication Refill Social History Tobacco [...] Tab by mouth daily. 90 Tab 1 07/01/2016 10/01/2016 documented in this encounter Miscellaneous Notes * Telephone Encounter - Kim Solis RMA - 07/01/2016 5:00 PM EDT RX for metropolol succinate sent to [facility] documented in this encounter Plan of Treatment Not on file documented as of this encounter Visit Diagnoses Diagnosis Essential hypertension Unspecified essential hypertension documented in this encounter Discontinued Medications Medication Sig Discontinue Reason Start Date End Da te metoprolol succinate ER (TOPROL-XL) 100 mg Oral Tablet Sustained Release 24 hrIndications:Essential hypertension Take 1 Tab by mouth daily. Reorder 2015 07/01/2016 documented as of this encounter Care Teams Off Track Betting Manager Relationship Specialty Start Date End Date Dora Hernandez MD [address] [facility] [address] PCP - General Family Medicine 12/24/15 documented as of this encounter
--- OUTSIDE RECORDS SUMMARY | 2024-09-12 12:48 | XMS_ITS | Encounter Summary ---
Author Organization [place] [address] Care Team Providers Care Subassembly Assembler Name Role Phone Dora Hernandez MD Primary Care Provider [phone] Reason for Visit * MRI/CAT Scan (Routine) - Closed Specialty Diagnoses / Procedures Referred By Contac t Referred To Contact Radiology Diagnoses Lung nodules Procedures PET CT SKULL BASE TO MID THIGH Dain Burris MD [address] [address] Phone: tel: fax: Referral ID Status Reason Start Date Expiration Date Visits Re quested Visits Authorized [id number] Closed 12/27/2015 2016 5 5 Encounter Details Date Type Department Care Team (Latest Contact Info) Description 01/16/2016 11:19 AM EDT - 01/16/2016 11:59 PM EDT [facility] [place] [place] [id number] Discharge Disposition: Home or Self Care Social History Tobacco Use Types Packs/Day Years Used Date Smoking Tobacco: Every Day Pipe Alcohol Use Standard Drinks/Week Comments Yes [...] on file documented as of this encounter Procedures Procedure Name Priority Date/Time Associated Diagnosis Comments PET CT SKULL BASE TO MID THIGH Routine 01/16/2016 1:25 PM EDT Lung nodules documented in this encounter Visit Diagnoses Not on filedocumented in this encounter Administered Medications Inactive Administered Medications - up to 1 most recent administrations Medication Order MAR Action Action Date Dose Rate Site fluorodeoxyglucose (FDG) injection 15 bonilla Curie 15 millicurie, Intravenous, ONCE PRN, 1 dose, Starting on Vanessa 01/16/16 at 1145, Until Vanessa 01/16/16 at 1140, Radiology Procedure, Administration dose must be within 10% of the ordered dose for radiopharmaceutical medications., Radiology Given 01/16/2016 11:40 AM EDT 15 millicuries sodium chloride 0.9% syringe Intravenous, ONCE PRN, 1 dose, Starting on Vanessa 01/16/16 at 1145, Until Vanessa 01/16/16 at 1146, Line Care, Flush every shift or after IV medication, Radiology Given 01/16/2016 11:46 AM EDT 10 mL documented in this encounter Care Teams Subassembly Assembler Relationship Specialty Start Date End Date Dora Hernandez MD [address] [place] [address] PCP - General Family Medicine 12/24/15 documented as of this encounter
--- OUTSIDE RECORDS SUMMARY | 2024-09-12 12:48 | XMS_ITS | Encounter Summary ---
Author Organization [place] [address] Care Team Providers Care Weigher Operator Name Role Phone Dora Hernandez MD Primary Care Provider Reason for Visit * Reason Onset Date Comments Thank You Card 12/31/2015 Encounter Details Date Type Department Care Team (Late st Contact Info) Description 12/31/2015 Telephone SEP Gloria [address] [place] [address] Dora Hernandez MD [address] [place] [address] Thank You Card Social History Tobacco Use Types Packs/Day Years [...] encounter Miscellaneous Notes * Telephone Encounter - Kathrine Myrick - 12/31/2015 8:57 AM EST Mailed thank you card. documented in this encounter Plan of Treatment Not on file documented as of this encounter Visit Diagnoses Not on filedocumented in this encounter Care Teams Weigher Operator Relationship Specialty Start Date End Date Dora Hernandez MD [address] [facility] [address] [place], [place] [id number] PCP - General Family Medicine 12/24/15 documented as of this encounter
--- OUTSIDE RECORDS SUMMARY | 2024-09-12 12:48 | XMS_ITS | Encounter Summary ---
Author Organization [place] [address] Care Team Providers Care Fast Food Cashier Name Role Phone Dora Hernandez MD Primary Care Provider [phone] Reason for Visit * Reason Onset Date Comments Medication Problem 12/31/2015 Encounter Details Date Type Department Care Team (Late st Contact Info) Description 12/31/2015 Telephone SEP Gloria [address] [place] [address] Dora Hernandez MD [address] [place] [address] Medication Problem Social History Tobacco Use Types Packs/Day Years [...] Tab by mouth daily. 90 Tab 1 12/31/2015 10/01/2016 losartan (COZAAR) 50 mg Oral TabletIndications:E ssential hypertension Take 1 Tab by mouth daily. 90 Tab 1 12/31/2015 04/02/2016 documented in this encounter Miscellaneous Notes * Telephone Encounter - Grace Rojas RMA - 12/31/2015 4:23 PM EST E scribed Thank you * Telephone Encounter - Alissa Quinones - 12/31/2015 4:15 PM EST On 12-26-15 Dr Hernandez sent medication for the pt to [facility] but the pt said that they didn't get all of the medication. They are going out of town tomorrow & need to have the following sent to [facility]: Amlodipine 10 mg # 90 Losartan 50 mg # 90 [facility] sent us a receipt that they received the requests. documented in this encounter Plan of Treatment Not on file documented as of this encounter Visit Diagnoses Diagnosis Essential hypertension- Primary Unspecified essential hypertension documented in this encounter Discontinued Medications Medication Sig Discontinue Reason Start Date End Da te losartan (COZAAR) 50 mg Oral TabletIndications:Essentia l hypertension Take 1 Tab by mouth daily. Reorder 2015 12/31/2015 amLODIPine (NORVASC) 10 mg Oral TabletIndications:Essentia l hypertension Take 1 Tab by mouth daily. Reorder 2015 12/31/2015 documented as of this encounter Care Teams Fast Food Cashier Relationship Specialty Start Date End Date Dora Hernandez MD [address] [place] [phone] PCP - General Family Medicine 12/24/15 documented as of this encounter
--- OUTSIDE RECORDS SUMMARY | 2024-09-12 12:48 | XMS_ITS | Encounter Summary ---
Author [place] [address] Care Team Providers Care Employment Consultant Name Role Phone Dora Hernandez MD Primary Care Provider [phone] Reason for Referral * MRI/CAT Scan (Routine) - Closed Specialty Diagnoses / Procedures Referred By Contac t Referred To Contact Radiology Diagnoses Pulmonary nodule, right Procedures CT CHEST W CONTRAST Dani Burris MD [address] [address] Phone: tel: fax: [facility] [place] [address] Phone: tel: fax: Referral ID Status Reason Start Date Expiration Date Visits Re quested Visits Authorized [id number] Closed 01/17/2016 01/16/2017 1 1 Reason for Visit * Reason Comments Referral Dr Hernandez Abnormal Radiology lung nodule * Consultation (Routine) - Closed Specialty Diagnoses / Procedures Referred By Contac t Referred To Contact Pulmonology Diagnoses Pulmonary nodule, right Dora Hernandez MD [address] [place] [address] Phone: tel: fax: Dain Burris MD [address] [address] Phone: tel: fax: Referral ID Status Reason Start Date Expiration Date V isits Requested Visits Authorized [id number] Closed Specialty Services Required 2015 12/25/2016 99 99 Encounter Details Date Type Department Care Team (Late st Contact Info) Description 01/17/2016 12:15 PM EDT Office Visit [facility] Pulmonology [facility] [address] [facility] Building [address] [place] [phone] Dain Burris MD [address] [phone] Pulmonary nodule, right (Primary Dx); Hyponatremia; Recurrent acute serous otitis media of both ears; Non morbid obesity due to excess calories; Tobacco use Social History Tobacco Use Types Packs/Day Years [...] Sign Reading Time Taken Comments Blood Pressure 152/80 01/17/2016 12:00 PM EDT Pulse 62 01/17/2016 12:00 PM EDT Temperature - - Respiratory Rate - - Oxygen Saturation 97% 01/17/2016 12:00 PM EDT at rest Inhaled Oxygen Concentration - - Weight 115.2 kg (254 lb) 01/17/2016 12:00 PM EDT Height 190.5 cm (6' 3 ) 01/17/2016 12:00 PM EDT Body Mass Index 31.75 01/17/2016 12:00 PM EDT documented in this encounter Progress Notes * Dain Burris MD - 01/17/2016 12:22 PM EDT Images from the original note were not included. [facility] Pulmonary / [facility] Care Group History & Physical / Consultation PATIENT: LOY CREWS CSN: [id number] AGE TODAY: 75 y.o. DATE: [address]: Dora Hernandez MD SERVICE DATE: 01/17/2016 [facility] BY: Dain Burris MD CHIEF COMPLAINT Chief Complaint Patient presents with ??? Referral Dr Hernandez ??? Abnormal Radiology lung nodule HPI Loy Crews is a 75 y.o. male eval for hearing in ed and a cxr followed by a ct and pet No sx's Concurrent eval thyroid nodules all benign Does he do nebulizer treatments? yes and no Does he use an inhaler? no Does he use a spacer w/MDIs? no Does he monitor peak flow rates? no What is his personal best peak flow rate: Has been taking medications as perscribed. no Has not been to the ED no Has not been hospitalized. no Has not used antibiotocs. no Has not used steroids. 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 Hypertension ??? Tobacco use 12/23/2015 Patient Active Problem List Diagnosis ??? Hyponatremia ??? Recurrent acute otitis media of both ears ??? Dizziness ??? Non morbid obesity due to excess calories ??? Elevated blood sugar ??? Essential hypertension ??? Tobacco use ??? Pulmonary nodule, right FAMILY HISTORY Family History Problem Relation Age of Onset ??? Heart Attack Mother 58 SURGICAL HISTORY No past surgical history on file. SOCIAL HISTORY History Social History ??? Marital Status: Spouse Name: N/A ??? Number of Children: N/A ??? Years of Education: N/A Social History Main Topics ??? Smoking status: Former Smoker -- 2.00 packs/day for 50 years Types: Pipe Quit date: 01/03/2016 ??? Smokeless tobacco: Not on file ??? Alcohol Use: 0.0 oz/week 2-3 Cans of beer per week Comment: beer and wine ??? Drug Use: No ??? Sexual Activity: Not on file Other Topics Concern ??? None Social History Narrative CURRENT MEDICATIONS Current Outpatient Prescriptions on File Prior to Visit Medication Sig Dispense Refill ??? amLODIPine (NORVASC) 10 mg Oral Tablet Take 1 Tab by mouth daily. 90 Tab 1 ??? aspirin (ASPIRIN LOW DOSE) 81 mg Oral Tablet, Delayed Release (E.C.) Take 1 Tab by mouth daily. ??? LORazepam (ATIVAN) 0.5 mg Oral Tablet Take 1 Tab by mouth every 8 hours as needed for Anxiety. 15 Tab 0 ??? losartan (COZAAR) 50 mg Oral Tablet Take 1 Tab by mouth daily. 90 Tab 1 ??? meclizine (ANTIVERT) 25 mg Oral Tablet Take by mouth as needed for Dizziness. ??? metoprolol succinate ER (TOPROL-XL) 100 mg Oral Tablet Sustained Release 24 hr Take 1 Tab by mouth daily. 90 Tab 1 ??? whjdcoqp-kbomweqou-pmajhrwwvkvzja (CORTISPORIN) 3.5-10,000-1 mg/mL-unit/mL-% Otic Drops, Suspension Place 4 Drops into both ears 3 times daily. 10 mL 0 No current facility-administered medications on file prior to visit. ALLERGIES No Known Allergies Objective: PHYSICAL EXAM BP 152/80 mmHg Pulse 62 Ht 6' 3 (1.905 m) Wt 254 lb (115.214 kg) BMI 31.75 kg/m2 SpO2 97% General Appearance: Alert, cooperative, no distress, appears [...] no curvature, ROM normal, no CVA tenderness Lungs: Clear to auscultation bilaterally, respirations unlabored [...] intact. Normal strength, sensation and reflexes throughout LABS Lab Results Component Value Date WBC 8.6 12/22/2015 HGB 15.0 12/22/2015 HCT 42.8 12/22/2015 PLT 339 12/22/2015 CHOLESTEROL 173 12/23/2015 TRIG 98 12/23/2015 HDL 50 12/23/2015 LDLCALC 103* 12/23/2015 ALT 32 11/12/2014 AST 20 11/12/2014 NA 133* 2015 K 4.0 2015 CL 97* 2015 CREATININE 0.83 2015 BUN 14 2015 CO2 21* 2015 TSH 1.290 12/23/2015 PSA 1.44 12/23/2015 GLU 116* 2015 HGBA1C 5.5 12/23/2015 IMAGING DATA Xr Chest Pa And Lateral 12/22/2015 XR CHEST PA AND LATERAL 12/22/2015 8:11 PM HISTORY: -DIZZINESS, hyponatremia. Compare: November 12, 2014 Heart size normal No pneumothorax Mild atelectasis noted 12/22/2015 IMPRESSION: Mild atelectasis left base Ct Head Wo Contrast 12/22/2015 CT HEAD WO CONTRAST 12/22/2015 8:12 PM HISTORY: -DIZZINESS, bilateral ear infections. Compare: None Mild to moderate sinusitis with greatest involvement in right maxillary sinus Visualized mastoids clear Atrophy and ischemic leukoencephalopathy noted. No hemorrhage or mass effect. No fracture or extraaxial collection. 12/22/2015 Impression: No acute findings of the brain. Ct Chest W Contrast 12/23/2015 CT CHEST W CONTRAST 12/23/2015 3:33 PM HISTORY: -smoker, hyponatremia. COMPARE: December 22, 2015 FINDINGS: 1. Millimeter thick axial sections from lung apex through the upper abdomen performed following 75 cc Isovue-370 There are several scattered under 1.5 cm low-density lesions in the thyroid bilaterally probably benign colloid cysts. There is heavy atherosclerotic calcification of the coronary arteries particularly the LAD compatible with atherosclerotic coronary artery disease There is no mediastinal or hilar adenopathy. The tracheobronchial tree is patent 5 mm noncalcified nodule seen in the right upper lobe (image 19) 10 mm noncalcified nodule seen in the right lower lobe which is smoothly marginated There are several calcified granulomas present in the right upper lobe. There is a small intrafissural lymph node measuring 5 mm in an inferior accessory fissure on the right The images of the upper abdomen are normal 12/23/2015 IMPRESSION: There are 2 noncalcified nodules on the right one 5 mm in the right upper lobe 1 10 mm in the right lower lobe. There are also several calcified nodules Noncalcified nodules arenonspecific and could be granulomatous or neoplastic For the largest nodule a PET scan could be attempted although this is borderline in size for evaluation with PET scanning Code follow-up Us Thyroid 01/14/2016 THYROID ULTRASOUND DATED 01/14/2016 COMPARISON: None HISTORY: Abnormal blood work, thyroidlesion FINDINGS: Right thyroid lobe measures: 5.9 x [...] biopsied mass. Imaging follow-up as clinically indicated. 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 In addition, there is a subcentimeter hypoechoic and predominantly solid nodule in the right thyroid midpole posteriorly. This warrants ultrasound follow-up to assess for stability, as detailed above. Pet Ct Skull Base To Mid Thigh 01/16/[address] SKULL BASE TO MID THIGH 01/16/2016 1:25 PM Clinical: R91.8-Other nonspecific abnormal finding of lung taebg-EYQ-85-CM lung nodule. TECHNIQUE: 15.0 mCi F-18 FDG injected into right antecubital vein. Blood glucose 115 mg/dL. COMPARISON: CT scan December 23, 2015. Findings: The right upper and lower lobe lung nodules are unchanged in size. Neither is hypermetabolic. Remainder of activity is physiologic. CT images show distention of the urinary bladder and mild enlargement of the prostate gland. 01/16/2016 IMPRESSION: 2 right lung nodules show no hypermetabolic activity. Because of their small size these could be falsely negative by PET scan. Follow- up CT suggested. Ek Ekg 12 Lead 12/23/2015 NOTICE: Preliminary tracing available for review; Final Interpretation by physician to follow. 12/23/2015 Stationary ECG Study [facility] [place] Interpretive Statements ACID BASE DATA Lab Results Component Value Date/Time ANIONGAP 15 2015 10:51 AM CL 97* 2015 10:51 AM CO2 21* 2015 10:51 AM GLU 116* 2015 10:51 AM KETONESU Negative 12/23/2015 08:10 AM RENAL & ELECTROLYTE DATA Lab Results Component Value Date/Time BUN 14 2015 10:51 AM CREATININE 0.83 2015 10:51 AM GFRAFRAM >60 2015 10:51 AM SPECGRAV 1.010 12/23/2015 08:10 AM NA 133* 2015 10:51 AM K 4.0 2015 10:51 AM CL 97* 2015 10:51 AM CALCIUM 9.1 2015 10:51 AM COAGULATION DATA Lab Results Component Value Date/Time PLT 339 12/22/2015 07:00 PM GI & NUTRITION DATA Lab Results Component Value Date/Time ALT 32 11/12/2014 11:16 AM AST 20 11/12/2014 11:16 AM ALKPHOS 67 11/12/2014 11:16 AM LABBILI 0.8 11/12/2014 11:16 AM PROT 7.4 11/12/2014 11:16 AM LABALBU 4.7* 11/12/2014 11:16 AM INFECTION DATA No results for input(s): WBC, BANDSPCT in the last 72 hours. Lab Results Component Value Date/Time WBCUA 0-2 12/23/2015 08:10 AM NITRITE Negative 12/23/2015 08:10 AM CXR performed at [facility] Was reviewed by me. CT scan performed at [facility] Was reviewed by me. PFT's performed at [facility] Was reviewed by me. normal ECHOCARDIOGRAM performed at [facility] Was reviewed by me Assessment: Encounter Diagnoses Name Primary? Hyponatremia ??? Recurrent acute serous otitis media of both ears ??? Non morbid obesity due to excess calories ??? Tobacco use ??? Pulmonary nodule, right Yes Plan: 5 mm and 10 mm nodules Too small to characterize on pet or too small to bx Repeat ct in 6 mos Intermediate risk documented in this encounter Miscellaneous Notes * Addendum Note - Nohemy Carvalho RMA - 01/17/2016 12:46 PM EDTAddended by: NOHEMY CARVALHO on: 01/17/2016 12:46 PM Modules accepted: Orders documented in this encounter Plan of Treatment Not on file documented as of this encounter Results * CT CHEST W CONTRAST (07/20/2016 12:40 PM EDT) Anatomical Region Laterality Modality Chest Computed Tomogra phy 07/20/2016 12:4 0 PM EDT Impressions 07/20/2016 3:36 PM EDT Impression: 1. Right upper lobe pulmonary nodule stable. Right lower lobe pulmonary nodule decreased in size. Recommend 6-12 month follow-up chest CT. Narrative 07/20/2016 3:[address] CHEST W CONTRAST ??07/20/2016 12:40 PM HISTORY: ??R91.1-Solitary pulmonary uilimx-HCB-87-CM Contrast: 75 mL Isovue 370 IV Automatic exposure control was used for dose reduction Comparison: 12/23/2015 Findings: No mediastinal or hilar lymphadenopathy. Stable low-density bilateral thyroid nodules. 7 mm right lower lobe pulmonary nodule is decreased in size, previously it measured 9 mm. 5 mm right upper lobe pulmonary nodule stable. No new or enlarging pulmonary nodules. No acute bony abnormality. Procedure Note Sd Hernandez MD - 07/20/2016 CT CHEST W CONTRAST 07/20/2016 12:40 PM HISTORY: R91.1-Solitary pulmonary rcqxon-AYG-71-CM Contrast: 75 mL Isovue 370 IV Automatic exposure control was used for dose reduction Comparison: 12/23/2015 Findings: No mediastinal or hilar lymphadenopathy. Stable low-densitybilateral thyroid nodules. 7 mm right lower lobe pulmonary nodule is decreased insize, previously it measured 9 mm. 5 mm right upper lobe pulmonary nodulestable. No new or enlarging pulmonary nodules. No acute bony abnormality. IMPRESSION Impression: 1. Right upper lobe pulmonary nodule stable. Right lower lobe pulmonarynodule decreased in size. Recommend 6-12 month follow-up chest CT. us Dain Burris MD IMG CT ORDERABLES Final Result documented in this encounter Visit Diagnoses Diagnosis Pulmonary nodule, right- Primary Solitary pulmonary nodule Hyponatremia Hyposmolality and/or hyponatremia Recurrent acute serous otitis media of both ears Acute serous otitis media Non morbid obesity due to excess calories Tobacco use Tobacco use disorder Pulmonary nodule, right Solitary pulmonary nodule documented in this encounter Care Teams Employment Consultant Relationship Specialty Start Date End Date Dora Hernandez MD [address] [place] [phone] PCP - General Family Medicine 12/24/15 documented as of this encounter
--- OUTSIDE RECORDS SUMMARY | 2024-09-12 12:48 | XMS_ITS | Encounter Summary ---
Author Organization [facility] Address [address] [place] [address] [address] [place] [address] Care Team Providers Care Vertical Lathe Operator Name Role Phone Dora Hernandez MD Primary Care Provider [phone] Reason for Referral * (Routine) - Closed Specialty Diagnoses / Procedures Referred By Contac t Referred To Contact Diagnoses Abnormal auditory perception, bilateral Procedures [facility] AUDIOLOGIC ASSESSMENT Joselyn Barron MD Referral ID Status Reason Start Date Expiration Date Visits Re quested Visits Authorized [id number] Closed 01/20/2016 01/19/2017 1 1 Reason for Visit * Reason Comments Otalgia Encounter Details Date Type Department Care Team (Latest Contact Info) Description 01/20/2016 2:00 PM EDT Office Visit [facility] [place] [address] [facility] [address] [place] [phone] Joselyn Barron MD Abnormal auditory perception, bilateral (Primary Dx); Other infective chronic otitis externa of left ear; Bilateral sensorineural hearing loss; Tinnitus, bilateral; Eustachian tube dysfunction, bilateral Social History Tobacco Use Types Packs/Day Years [...] Sign Reading Time Taken Comments Blood Pressure 146/74 01/20/2016 2:07 PM EDT Pulse - - Temperature - - Respiratory Rate - - Oxygen Saturation - - Inhaled Oxygen Concentration - - Weight 116.6 kg (257 lb) 01/20/2016 2:07 PM EDT Height 190.5 cm (6' 3 ) 01/20/2016 2:07 PM EDT Body Mass Index 32.12 01/20/2016 2:07 PM EDT documented in this encounter Ordered Prescriptions Prescription Sig Dispense Quantity Refills Last Filled Start Date End Date ciprofloxacin-dexa methasone (CIPRODEX) Otic Drops, SuspensionIndicati ons:Other infective chronic otitis externa of left ear Place 4 Drops into the left ear 3 times daily for 10 days. 7.5 mL 0 01/20/2016 01/30/2016 fluticasone (FLONASE) 50 mcg/actuation Nasl Waka, SuspensionIndicati ons:Eustachian tube dysfunction, bilateral 2 Sprays by Nasal route daily. 1 Bottle 5 01/20/2016 09/12/2021 documented in this encounter Progress Notes * Camron Agrawal Au.D, YVROSE-A - 01/20/2016 2:50 PM EDT Images from the original note were not included. [facility] AUDIOLOGY AUDIOMETRIC EVALUATION - Audiogram The patients??? chief complaint, current history, medication list, and reason for referral was reviewed from the patient???s electronic medical record, history form, and verbal inquiry of the patient. Patient reports:hearing loss, tinnitus bilateral, ear pressure left Findings: Audiometry results: Normal to profound SNHL bilaterally Test technique: Pure tone audiometry Reliability: Good Speech audiometry: Right ear word recognition scores: poor Left ear word recognition scores poor Fair binaural Immittance Measures: Right ear: tympanogram reveals negative middle ear pressure Left Ear: normal mobility and middle ear pressure Impression: Bilateral SNHL with poor discrim, negative pressure left Recommendations: GARETH Carlson, Hearing Protection * Joselyn Barron MD - 01/20/2016 1:59 PM EDT Images from the original note were not included. Jac Garvin 1940 75 y.o. male 01/20/2016 New Patient Yoshi Barron MD, [facility] [place] Referring Provider: Dora Hernandez MD No chief complaint on file. HPI Jac Garvin is a 75 y.o. male who is being seen in consultation at the request of RiaA. Hernandez MD for both ears.Patient states symptoms started 6 months ago. Right ear: pressure, decreased hearing, tinnitus Left ear: pressure, decreased hearing, tinnitus Additional symptoms: dizziness Has the patient ever had ear tubes? no Does the patient have a history of recurrent ear infections? No Previous antibiotics include? Amoxicillin- somewhat effective Z-marva Current antibiotics include? no recent courses Allergy/Sinus medications? none Previous ear drops used? Cortisporin- not very effective Current ear drops used? None Has the patient ever perforated a ear drum in the past? no Symptoms are considered moderate Does the patient have any trouble with anesthesia? n/a Is there a family history of malignant hyperthermia? no Patient's medications, allergies, past medical, surgical, family and social histories were reviewedand updated in this EMR. Positive: ENT; Decreased hearing, Noises in the ear Other; Cough, Anxiety All 14 organ systems reviewed and negative except as above. Exam: There were no vitals filed for this visit.There is no weight on file to calculate BMI. General: -: well nourished, well developed, well groomed, age appropriate oral communication, normal voice sounds, no stridor Head and Face: -: facial strength symmetrical, absence of sinus tenderness on palpation, no abnormalities of head and face, saliva gland normal to inspection and palpation Eyes: -: ocular mobility and gaze alignment normal, pupils equal and reactive to light wears glasses: Yes External Nose: -: Nasal dorsum grossly normal, without lesion Internal Nose: -: Septum midline, nasal mucosa normal in color and texture, turbinates normal Hearing: -: Clinical hearing thresholds-Normal Right Ear: -: Right auricle, EAC and TM Normal, Pre and post-auricular soft tissue and pinna normal Left Ear: EAC: (debris) Oral Cavity: Dentures: upper, lower (removed) Oropharynx: Tonsils: absent Thyroid: -: Thyroid not enlarged, symmetric, no tenderness, mass, nodules noted Neck: -: No masses noted on palpation Lymphatic: -: Palpation of the carotid and paratracheal lymph nodes reveals no adenopathy Neurological: -: Alert, appropriate and does not appear agitated, Oriented to time, place and person, Normal mood and affect PROCEDURE NOTE ; MICROSCOPIC EAR EXAM The patient was taken to the microscope room. Under microscopic guidance, debris was removed from the left ear canal. Following this, ear canal is inflamed. Assessment and Plan: Jac was seen today for otalgia. Diagnoses and all orders for this visit: Abnormal auditory perception, bilateral Orders: - [facility] Audiology Assessment Other infective chronic otitis externa of left ear Orders: - ciprofloxacin-dexamethasone (CIPRODEX) Otic Drops, Suspension; Place 4 Drops into the left ear 3 times daily for 10 days. Bilateral sensorineural hearing loss Tinnitus, bilateral Eustachian tube dysfunction, bilateral Orders: - fluticasone (FLONASE) 50 mcg/actuation Nasl Waka, Suspension; 2 Sprays by Nasal route daily. Other orders - AR EAR MICROSCOPY EXAMINATION Jac was seen today for bilateral decreased hearing, tinnitus and occasional disorientation that has been present for 6 months. He has a history of exposure to loud machinery at work. On physical exam bilateral TM were clear with soft squamous debris and a bit of foul smell in the left EAC. Hearing exam showed Normal sloping to profound bilateral sensorineural hearing loss with retraction of the left TM. The drainage in his left EOM was suctioned out under microscopic guidance and he will use his own Corticosporin drops in his left ear 3 gtt TID x 7 days. He was told to use OTC intranasal steroids for retracted TM. He will follow up with audiology to discuss hearing aids for hearing loss and he wastold that hearing aids may decrease tinnitus. The patient appears to have a mild left external otitis, will be treated with his Cortisporin dropsand he will then used swimmers ear solution thereafter. 2. I discussed the relationship of sensorineural hearing loss and tinnitus. He has a long-standing history of acoustic trauma. He does miss on a conversation and I have recommended amplification for him. 3. I am hopeful that the steroids may help with symptoms including imbalance and we will reassess this in one month. Patient seen with Jesica Pace today. [facility] [place] No Follow-up on file. [facility] [place] [address] [place] [address] This note may have been partially dictated using [employer] voice recognition software and may contain unintended error. documented in this encounter Miscellaneous Notes * Patient Instructions - Ayla Adams MA - 01/20/2016 2:59 PM EDT Images from the original note were not included. documented in this encounter Plan of Treatment Scheduled Orders Name Type Priority Associated Diagnoses Orde r Schedule AR EAR MICROSCOPY EXAMINATION AR Charge Routine Other infective chronic otitis externa of left ear Ordered: 01/20/2016 documented as of this encounter Visit Diagnoses Diagnosis Abnormal auditory perception, bilateral- Primary Other infective chronic otitis externa of left ear Bilateral sensorineural hearing loss Sensorineural hearing loss, bilateral Tinnitus, bilateral Unspecified tinnitus Eustachian tube dysfunction, bilateral documented in this encounter Orders Nursing Count Last Ordered Date First Orde red Date [facility] A[facility] ASSESSMENT 1 01/20/2016 documented in this encounter Care Teams Vertical Lathe Operator Relationship Specialty Start Date End Date Dora Hernandez MD [address] [facility] [address] [place] [phone] PCP - General Family Medicine 12/24/15 documented as of this encounter
--- OUTSIDE RECORDS SUMMARY | 2024-09-12 12:48 | XMS_ITS | Encounter Summary ---
Author Organization [place] [address] Care Team Providers Care Roll Carrier Name Role Phone Dora Hernandez MD Primary Care Provider [phone] Reason for Visit * Reason Comments Follow-up Pt is here for nicole maldonado follow up. Pt states that he feels like he is retaining alot of water in his legs and around ankles Constipation Pt states that he is still having problems with constipation. Pts appointment is April [address] Hobson Encounter Details Date Type Department Care Team (Late st Contact Info) Description 04/02/2016 2:40 PM EDT Office Visit [facility] [address] [facility] [place] [address] Dora Hernandez MD [address] [place] [address] Essential hypertension (Primary Dx); Peripheral edema; Constipation, chronic; Former smoker; Uses hearing aid Social History Tobacco Use [...] Reading Time Taken Comments Blood Pressure 130/80 04/02/2016 2:34 PM EDT Pulse 67 04/02/2016 2:34 PM EDT Temperature 37 ??C (98.6 ??F) 04/02/2016 2:34 PM EDT Respiratory Rate - - Oxygen Saturation 97% 04/02/2016 2:34 PM EDT Inhaled Oxygen Concentration - - Weight 109.8 kg (242 lb) 04/02/2016 2:34 PM EDT Height 190.5 cm (6' 3 ) 04/02/2016 2:34 PM EDT Body Mass Index 30.25 04/02/2016 2:34 PM EDT documented in this encounter Ordered Prescriptions Prescription Sig Dispense Quantity Refills Last Filled Start Date End Date polyethylene glycol (GLYCOLAX, MIRALAX) 17 gram Oral Powder in PacketIndications:C onstipation, chronic Take 17 g by mouth daily for 30 days. 1 Packet 2 04/02/2016 04/02/2016 docusate sodium (COLACE) 100 mg Oral CapsuleIndications: Constipation, chronic Take 1 Cap by mouth 2 times daily for 30 days. 60 Cap 2 04/02/2016 05/02/2016 losartan-hydrochlor othiazide (HYZAAR) 50-12.5 mg Oral TabletIndications:E ssential hypertension,Periph eral edema Take 1 Tab by mouth daily. 30 Tab 2 04/02/2016 06/22/2016 documented in this encounter Progress Notes * Dora Hernandez MD - 04/03/2016 9:21 PM EDT Subjective: Patient ID: Jac Garvin is a 75 y.o. male. Chief Complaint Patient presents with ??? Follow-up Pt is here for routine follow up. Pt states that he feels like he is retaining alot of water in hislegs and around ankles ??? Constipation Pt states that he is still having problems with constipation. Pts appointment is April [address] Hobson HPI: Pt has done better since last visit. Stopped tobacco use. Lost weight intentionally. Cough has resolved since ACEi d/c'ed. Tolerating ARB. C/o swelling on both ankles. He was on HCTZ. No SOB. No CP. C/o constipation. Using OTC stool softeners. No blood in stool. No abd pain. No n/v. Patients past medical, family and social histories were reviewed and updated. There were no changesexcept as noted. Review of Systems Objective: Filed Vitals: 04/02/16 1434 BP: 130/80 Pulse: 67 Temp: 98.6 ??F (37 ??C) TempSrc: Oral Height: 6' 3 (1.905 m) Weight: 242 lb (109.77 kg) SpO2: 97% Body mass index is 30.25 kg/(m^2). Physical Exam Constitutional: He is oriented to person, place, and time. He appears well- developed. No distress. Cardiovascular: Normal rate and regular rhythm. Pulmonary/Chest: Effort normal and breath sounds normal. Abdominal: Soft. He exhibits no distension. There is no tenderness. Musculoskeletal: He exhibits edema (bipedal 1+). Neurological: He is alert and oriented to person, place, and time. Psychiatric: He has a normal mood and affect. His behavior is normal. Vitals reviewed. Assessment and Plan: Jac was seen today for follow-up and constipation. Diagnoses and all orders for this visit: Essential hypertension - losartan-hydrochlorothiazide (HYZAAR) 50-12.5 mg Oral Tablet; Take 1 Tab by mouth daily. Peripheral edema - losartan-hydrochlorothiazide (HYZAAR) 50-12.5 mg Oral Tablet; Take 1 Tab by mouth daily. Constipation, chronic - docusate sodium (COLACE) 100 mg Oral Capsule; Take 1 Cap by mouth 2 times daily for 30 days. - polyethylene glycol (GLYCOLAX, MIRALAX) 17 gram Oral Powder in Packet; Take 17 g by mouth daily for 30 days. Former smoker Uses hearing aid Limit salt intake. Increase fluid intake. Needs colonoscopy. Keep appt with GI on April 24. Return in about 6 months (around 10/02/2016), or if symptoms worsen or fail to improve. documented in this encounter Plan of Treatment Not on file documented as of this encounter Visit Diagnoses Diagnosis Essential hypertension- Primary Unspecified essential hypertension Peripheral edema Edema Constipation, chronic Unspecified constipation Former smoker Personal history of tobacco use, presenting hazards to health Uses hearing aid documented in this encounter Discontinued Medications Medication Sig Discontinue Reason Start Date End Da te meclizine (ANTIVERT) 25 mg Oral Tablet Take by mouth as needed for Dizziness. DELETE-Therapy completed 04/02/2016 losartan (COZAAR) 50 mg Oral TabletIndications:Essent ial hypertension Take 1 Tab by mouth daily. Alternate therapy 12/31/2015 04/02/2016 documented as of this encounter Care Teams Roll Carrier Relationship Specialty Start Date End Date Dora Hernandez MD [address] [facility] [place] [id number] PCP - General Family Medicine 12/24/15 documented as of this encounter
--- OUTSIDE RECORDS SUMMARY | 2024-09-12 12:48 | XMS_ITS | Encounter Summary ---
Author Organization [place] [address] Care Team Providers Care Dealer Account Manager Name Role Phone Unavailable Primary Care Provider Unavailabl e Reason for Visit * Reason Comments Dizziness has been having ring ing in his ears since July, over the past few days it has been getting worse and started having ringing in his ears. + nausea * Auth/Cert/Inpt Specialty Diagnoses / Procedures Referred By Contkaroline t Referred To Contact Diagnoses Dizziness Hyponatremia Recurrent acute otitis media of both ears, unspecified otitis media type Referral ID Status Reason Start Date Expiration Date Visits Re quested Visits Authorized [id number] 1 1 Encounter Details Date Type Department Care Team (Late st Contact Info) Description 12/22/2015 6:46 PM EST - 12/23/2015 4:00 PM EST Emergency [facility] [address] [place] [address] Jose J Mayen MD [address] [place] [address] Arian Waldron MD [address] [place] [address] [place] [id number] Recurrent acute otitis media of both ears, unspecified otitis media type (Primary Dx); Dizziness; Hyponatremia Discharge Disposition: Home or Self Care Social [...] Sign Reading Time Taken Comments Blood Pressure 123/56 12/23/2015 12:52 PM EST Pulse 56 12/23/2015 12:52 PM EST Temperature 36.4 ??C (97.5 ??F) 12/23/2015 12:[address] Respiratory Rate 16 12/23/2015 12:52 PM EST Oxygen Saturation 96% 12/23/2015 12:52 PM EST Inhaled Oxygen Concentration - - Weight 112 kg (247 lb) 12/22/2015 10:49 PM EST Height 190.5 cm (6' 3 ) 12/22/2015 10:49 PM EST Body Mass Index 30.87 12/22/2015 10:49 PM EST documented in this encounter Discharge Summaries * Kim Morris MD - 12/23/2015 1:57 PM EST Refer to H and P as pt admitted and discharged same day,. Jac Garvin Bath Medication Instructions CLAUDETTE:[id number] Printed on:12/23/15 1358 Medication Information acetaminophen Oral Tab Take 2 Tabs by mouth every 4 hours as needed for Pain or Fever. amLODIPine (NORVASC) 10 mg Oral Tablet Take by mouth daily. lisinopril (PRINIVIL;ZESTRIL) 20 mg Oral Tablet Take 1 Tab by mouth daily. meclizine (ANTIVERT) 25 mg Oral Tablet Take by mouth as needed for Dizziness. metoprolol succinate ER (TOPROL-XL) 100 mg Oral Tablet Sustained Release 24 hr Take 100 mg by mouth daily. hvvgabsn-qxkdllaay-olnjudnzmxtvlv (CORTISPORIN) 3.5-10,000-1 mg/mL-unit/mL-% Otic Drops, Suspension Place 4 Drops into both ears 3 times daily. documented in this encounter Discharge Instructions * Discharge Instructions* Cee Sanchez RN - 12/23/2015 11:19 AM EST Images from the original note were not included. Otitis Media Otitis media is redness, soreness, and swelling (inflammation) of the middle ear. Otitis media may be caused by allergies or, most commonly, by infection. Often it occurs as a complication of the common cold. SIGNS AND SYMPTOMS Symptoms of otitis media may include: ?? Earache. ?? Fever. ?? Ringing in your ear. ?? Headache. ?? Leakage of fluid from the ear. DIAGNOSIS To diagnose otitis media, your health care provider will examine your ear with an otoscope. This isan instrument that allows your health care provider to see into your ear in order to examine your eardrum. Your health care provider also will ask you questions about your symptoms. TREATMENT Typically, otitis media resolves on its own within 3-5 days. Your health care provider may prescribe medicine to ease your symptoms of pain. If otitis media does not resolve within 5 days or is recurrent, your health care provider may prescribe antibiotic medicines if he or she suspects that a bacterial infection is the cause. HOME CARE INSTRUCTIONS ?? Take your medicine as directed until it is gone, even if you feel better after the first few days. ?? Only take zqgh-ckt-mhykiog or prescription medicines for pain, discomfort, or fever as directed by your health care provider. ?? Follow up with your health care provider as directed. SEEK MEDICAL CARE IF: ?? You have otitis media only in one ear, or bleeding from your nose, or both. ?? You notice a lump on your neck. ?? You are not getting better in 3-5 days. ?? You feel worse instead of better. SEEK IMMEDIATE MEDICAL CARE IF: ?? You have pain that is not controlled with medicine. ?? You have swelling, redness, or pain around your ear or stiffness in your neck. ?? You notice that part of your face is paralyzed. ?? You notice that the bone behind your ear (mastoid) is tender when you touch it. MAKE SURE YOU: ?? Understand these instructions. ?? Will watch your condition. ?? Will get help right away if you are not doing well or get worse. Document Released: 07/16/2005 Document Revised: 10/16/2014 Document Reviewed: 05/08/2014 ExitCare?? Patient Information ??2015 [email or web address]. This information is not intended to replace advice given to you by your health care provider. Make sure you discuss any questions you have with your health care provider. Acetaminophen tablets or caplets What is this medicine? ACETAMINOPHEN (a set a MELISSA jeovany fen) is a pain reliever. It is used to treat mild pain and fever. This medicine may be used for other purposes; ask your health care provider or pharmacist if you have questions. COMMON BRAND NAME(S): Aceta, Actamin, Anacin Aspirin Free, Genapap, Genebs, Mapap, Pain & Fever, Pain and Fever, PAIN RELIEF, PAIN RELIEF Extra Strength, Pain Reliever, Panadol, PHARBETOL, Q-Pap,Q-Pap Extra Strength, Tylenol, Tylenol CrushableTablet, Tylenol Extra Strength, XS No Aspirin, XS Pain Reliever What should I tell my health care provider before I take this medicine? They need to know if you have any of these conditions: -if you often drink alcohol -liver disease -an unusual or allergic reaction to acetaminophen, other medicines, foods, dyes, or preservatives - or trying to get -breast-feeding How should I use this medicine? Take this medicine by mouth with a glass of water. Follow the directions on the package or prescription label. Take your medicine at regular intervals. Do not take your medicine more often than directed. Talk to your outside cutter regarding the use of this medicine in children. While this drug may be prescribed for children as young as 6 years of age for selected conditions, precautions do apply. Overdosage: If you think you have taken too much of this medicine contact a poison control center or emergency room at once. NOTE: This medicine is only for you. Do not share this medicine with others. What if I miss a dose? If you miss a dose, take it as soon as you can. If it is almost time for your next dose, take only that dose. Do not take double or extra doses. What may interact with this medicine? -alcohol -imatinib -isoniazid -other medicines with acetaminophen This list may not describe all possible interactions. Give your health care provider a list of all the medicines, herbs, non-prescription drugs, or dietary supplements you use. Also tell them if you smoke, drink alcohol, or use illegal drugs. Some items may interact with your medicine. What should I watch for while using this medicine? Tell your doctor or health inpatient care manager rn if the pain lasts more than 10 days (5 days for children), if it gets worse, or if there is a new or different kind of pain. Also, check with your doctor if a fever lasts for more than 3 days. Do not take other medicines that contain acetaminophen with this medicine. Always read labels carefully. If you have questions, ask your doctor or pharmacist. If you take too much acetaminophen get medical help right away. Too much acetaminophen can be very dangerous and cause liver damage. Even if you do not have symptoms, it is important to get help right away. What side effects may I notice from receiving this medicine? Side effects that you should report to your doctor or health inpatient care manager rn as soon as possible: -allergic reactions like skin rash, itching or hives, swelling of the face, lips, or tongue -breathing problems -fever or sore throat -redness, blistering, peeling or loosening of the skin, including inside the mouth -trouble passing urine or change in the amount of urine -unusual bleeding or bruising -unusually weak or tired -yellowing of the eyes or skin Side effects that usually do not require medical attention (report to your doctor or health inpatient care manager rn if they continue or are bothersome): -headache -nausea, stomach upset This list may not describe all possible side effects. Call your doctor for medical advice about side effects. You may report side effects to FDA at 9-762-SHV-4378. Where should I keep my medicine? Keep out of reach of children. Store at room temperature between 20 and 25 degrees C (68 and 77 degrees F). Protect from moisture and heat. Throw away any unused medicine after the expiration date. NOTE: This sheet is a summary. It may not cover all possible information. If you have questions about this medicine, talk to your doctor, pharmacist, or health care provider. ?? 2015, Elsevier/Gold Standard. (2014-06-04 12:54:16) Hydrocortisone; Neomycin; Polymyxin B ear solution What is this medicine? HYDROCORTISONE; NEOMYCIN; and POLYMYXIN B (bari droe KOR ti sone; nee oh MYE sin; nenita i MIX in B) isused to treat ear infections. This medicine may be used for other purposes; ask your health care provider or pharmacist if you have questions. COMMON BRAND NAME(S): AK-Spore HC, AK-Spore HC Otic, Antibiotic Otic, Cortisporin, Cortomycin, Yelitza-Sone, Oticin HC, Otimar, Otocidin What should I tell my health care provider before I take this medicine? They need to know if you have any of these conditions: -any other active infections -chronic ear infections or fluid in the ear -perforated ear drum -an unusual or allergic reaction to hydrocortisone, neomycin, polymyxin B, sulfites, other medicines, foods, dyes, or preservatives - or trying to get -breast-feeding How should I use this medicine? This medicine is only for use in the ears. Follow the directions on the prescription label. Wash hands before and after use. Clean your ear of any fluid that can be easily removed. Do not insert any object or swab into the ear canal. Gently warm the bottle by holding it in the hand for 1 to 2 minutes. Lie down on your side with the infected ear dacing upward. Try not to touch the tip of the dropper to your ear, fingertips, or other surface. Squeeze the bottle gently to put the prescribed numberof drops in the ear canal. Stay in this position for 30 to 60 seconds to help the drops soak into the ear. Repeat the steps for the other ear if both ears are infected. Do not use your medicine more often than directed. Finish the full course of medicine prescribed by your doctor or health inpatient care manager rn even if you think your condition is better. Talk to your outside cutter regarding the use of this medicine in children. While this drug may be prescribed for selected conditions, precautions do apply. Overdosage: If you think you have taken too much of this medicine contact a poison control center or emergency room at once. NOTE: This medicine is only for you. Do not share this medicine with others. What if I miss a dose? If you miss a dose, use it as soon as you can. If it is almost time for your next dose, use only that dose. Do not take double or extra doses. What may interact with this medicine? Interactions are not expected. Do not use other ear products without talking to your doctor or health inpatient care manager rn. This list may not describe all possible interactions. Give your health care provider a list of all the medicines, herbs, non-prescription drugs, or dietary supplements you use. Also tell them if you smoke, drink alcohol, or use illegal drugs. Some items may interact with your medicine. What should I watch for while using this medicine? Tell your doctor or health inpatient care manager rn if your ear infection does not get better in a few days. Do not use longer than 10 days unless instructed by your doctor or health inpatient care manager rn. If rash or allergic reaction occurs, stop the product immediately and contact your physician. It is important that you keep the infected ear(s) clean and dry. When bathing, try not to get the infected ear(s) wet. Do not go swimming unless your doctor or health inpatient care manager rn has told you otherwise. To prevent the spread of infection, do not share ear products, or share towels and washcloths with anyone else. What side effects may I notice from receiving this medicine? Side effects that you should report to your doctor or health inpatient care manager rn as soon as possible: -rash -red, itchy, dry scaly skin at the affected site -worsening ear pain Side effects that usually do not require medical attention (report to your doctor or health inpatient care manager rn if they continue or are bothersome): -abnormal sensation in the ear -burning or stinging while putting the drops in the ear This list may not describe all possible side effects. Call your doctor for medical advice about side effects. You may report side effects to FDA at 4-362-NPP-1685. Where should I keep my medicine? Keep out of the reach of children. Store at room temperature between 15 and 25 degrees C (59 and 77 degrees F). Do not freeze. Throw away any unused medicine after the expiration date. NOTE: This sheet is a summary. It may not cover all possible information. If you have questions about this medicine, talk to your doctor, pharmacist, or health care provider. ?? 2015, Elsevier/Gold Standard. (2009-02-25 14:33:08) documented in this encounter Ordered Prescriptions Prescription Sig Dispense Quantity Refills Last Filled Start Date End Date lisinopril (PRINIVIL;ZESTRIL) 20 mg Oral Tablet Take 1 Tab by mouth daily. 30 Tab 2 12/23/2015 2015 neomycin-polymyxin -hydrocortisone (CORTISPORIN) 3.5-10,000-1 mg/mL-unit/mL-% Otic Drops, Suspension Place 4 Drops into both ears 3 times daily. 10 mL 0 12/23/2015 01/06/2017 acetaminophen Oral Tab Take 2 Tabs by mouth every 4 hours as needed for Pain or Fever. 12/23/2015 2015 documented in this encounter Discharge Disposition Disposition Code Departure Means Destination Home or Self Intermediate documented in this encounter Progress Notes * Lorna Parra RN - 12/23/2015 4:00 PM EST Patient being discharged home with spouse. Discharge instructions reviewed with the patient at the bedside. He verbalizes understanding of his discharge instructions and recognizes the importance of following up with PCP and ENT. Ear drops given to patient to take home. Patient provided education on new medications and ear infections. IV and heart monitor removed. Patient encouraged to stop lisinopril with HCTZ and to begin lisinopril per MD orders. New medication sent to local pharmacy. Awaiting transporter for discharge. * Zoila Herrera RN - 12/23/2015 11:40 AM EST 12/23/15 1138 Assessment Complete Actual Discharge Plan 12/23/15. CC initial assessment. CC reviewed chart and met with patient. Patient discharged. Patient is independent from home with spouse. PCP is Dr. Hernandez. Patient denies difficulty obtaining rx meds. No HH or DME. Transport home with . No needs identified. CC to sign. off. Completed by CC/SW Yes RRS Is patient score high risk on RRS score? No Care Coordination Assessment Does patient meet high risk triggers? Multiple acute diagnosis Assessed In person interview with patient Mental Status Alert and oriented Does patient need staff interpreter? No Decision Maker Him/Herself Activities of Daily Living Independent Living Arrangements Spouse/Significant Other Where did the patient come from? Private Residence Support Systems Spouse/Significant Other Type of Home Care Services None Recent decline in your ability to care for yourself physically? No Financial Concerns No Obtain prescription meds at discharge? Commercial Insurance Obtain follow up care after discharge? PCP office Transportation at discharge Personal vehicle Discussed discharge plan with patient/family Yes Agency/Facility Options Offered, list provided N/A * Marita Inman RN - 12/23/2015 2:29 AM EST Performed skin assessment with 2nd RN Regina, no skin issues noted. documented in this encounter H&P Notes * Kim Morris MD - 12/23/2015 10:06 AM EST [facility] Date of Admission: 12/22/2015 Date of Evaluation: 12/23/2015 ID: Jac Garvin is a 74 y.o. male. His primary care physician is No primary care provider on file.. History of Present Illness: CC Chief Complaint Patient presents with ??? Dizziness has been having ringing in his ears since July, over the past few days it has been getting worseand started having ringing in his ears. + nausea HPI: He is a patient, yet to have been established in our office, who presents to the the ER with acute worsening of chronic dizziness. He has had pressure and pain off and on in both ears x months. Treated x 2 with amoxicillin with not much improvement. He felt worse over the weekend and nausea with positional dizziness. He has no PCP and went to the ER instead. He has a hx of HTN, treated by a senior functional analyst in [place] who happens to be a family friend. He has been drinking up to 60-80 ounces of gatoraide to help with this dizziness as he thought maybe he was dehydrated. He also takes HCTZ. ROS Patient denies any fever, chills, vomiting, cough, dysphagia, chest pain, shortness of breath, abdominal pain, constipation, diarrhea, rectal bleeding, dysuria, urinary frequency, hematuria, weight gain, weight loss, rash, or joint pain. Pos for Dizziness with position changed and nausea now resolved, also for bilat ear pressure. All other ROS neg Past Medical History: Past Medical History Diagnosis Date ??? Hypertension ??? Tobacco use 12/23/2015 History reviewed. No pertinent past surgical history. Prior to Admission medications Medication Sig Start Date End Date Taking? Authorizing Provider amLODIPine (NORVASC) 10 mg Oral Tablet Take by mouth daily. Yes Provider, Historical lisinopril-hydrochlorothiazide (PRINZIDE;ZESTORETIC) 20-12.5 mg Oral Tablet Take 1 Tab by mouth daily. Yes Provider, Historical meclizine (ANTIVERT) 25 mg Oral Tablet Take by mouth as needed for Dizziness. Yes Provider, Historical metoprolol succinate ER (TOPROL-XL) 100 mg Oral Tablet Sustained Release 24 hr Take 100 mg by mouthdaily. Yes Provider, Historical No Known Allergies History Social History ??? Marital Status: Spouse Name: N/A Number of Children: N/A ??? Years of Education: N/A Social History Main Topics ??? Smoking status: Current Every Day Smoker Types: Pipe ??? Smokeless tobacco: None ??? Alcohol Use: 0.0 oz/week 2-3 Cans of beer per week Comment: beer and wine ??? Drug Use: No ??? Sexual Activity: None Other Topics Concern ??? None Social History Narrative Fam Hx: Son- passed of sudden cardiac in his mid 20s Mother - MA Physical Exam: VITALS Patient Vitals for the past 24 hrs: BP Temp Temp src Pulse Resp SpO2 Height Weight 12/23/15 0852 147/60 mmHg 97.4 ??F (36.3 ??C) Oral 61 - 98 % - - 12/23/15 0415 110/62 mmHg 98 ??F (36.7 ??C) Oral 60 16 98 % - - 12/22/15 2249 129/73 mmHg 97.4 ??F (36.3 ??C) Oral 66 16 98 % 6' 3 (1.905 m) 247 lb (112.038 kg) 12/22/15 2144 135/64 mmHg 97.8 ??F (36.6 ??C) Oral 68 16 97 % - - 12/22/15 1828 150/76 mmHg 98.8 ??F (37.1 ??C) Oral 77 18 99 % 6' 3 (1.905 m) 240 lb (108.863 kg) I/O last 3 completed shifts: In: 41.1 [IV Piggyback:41.1] Out: - EXAM General: Well-developed, well-nourished male in no apparent distress. Psy: Alert, aware, and oriented x3. HEENT: otosclerosis and bilat edema and debris in EAC Neck: Supple, without cervical lymphadenopathy, thyromegaly, or increased jugular venous distention. Lungs: Clear to auscultation bilaterally with good respiratory effort. Cardiac: Regular rate and rhythm without murmur. Abdomen: Positive bowel sounds. Soft, non-tender, and non-distended Extremities: No cyanosis, clubbing, or edema. Skin: Warm, pink, and dry, without rash or jaundice. Musculoskeletal: Full range of motion in all four extremities. Unable to assess gait. Neuro: Full Non-focal. LABS Lab Results Component Value Date WBC 8.6 12/22/2015 HGB 15.0 12/22/2015 HCT 42.8 12/22/2015 PLT 339 12/22/2015 Lab Results Component Value Date NA 127* 12/23/2015 K 3.9 12/23/2015 CL 93* 12/23/2015 CO2 22 12/23/2015 BUN 17 12/23/2015 CREATININE 0.83 12/23/2015 GLU 110* 12/23/2015 Lab Results Component Value Date AST 20 11/12/2014 ALT 32 11/12/2014 ALKPHOS 67 11/12/2014 RADIOLOGY Xr Chest Pa And Lateral 12/22/2015 XR [...] Impression: No acute findings of the brain. Ek Ekg 12 Lead 12/23/2015 NOTICE: Preliminary tracing available for review; Final Interpretation by physician to follow. 12/23/[address] 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 Due to smoking hx willalso send for CT chest to rule out paraneoplastic sx - HTN - at goal, stop HCTZ as may exacerbate low Na - obesity - tobacco use - Patient was strongly advised to quit smoking. - elevated blood sugar - not fasting, impaired fasting glucose. F/u in the office in 2 days to review outstanding urine tests and CT Kim Morris MD documented in this encounter ED Notes * Jose J Mayen MD - 12/23/2015 1:35 AM EST Chief Complaint Patient presents with ??? Dizziness has been having ringing in his ears since July, over the past few days it has been getting worseand started having ringing in his ears. + nausea HPI Comments: Patient is a 74-year-old male who presents to the hospital because since July thisyear he's had some ringing and pressure in his ears. In the recent past he was diagnosed with bilateral otitis media. He was placed on what sounds like amoxicillin which she has since finished. Patient states that today he was feeling somewhat dizzy and felt hot. Blood pressure at home was 210/90. B ecause of this he became concerned and came to the hospital. He denies any vision changes, slurred speech, focal arm or leg weakness or numbness. No vertigo. No problems breathing or chest pain. No neck or jaw pain. Currently he just feels a little bit of pressure in both ears. He was going to havea family physician appointment with Dr. Hernandez in 3 days. This would have been his first appointment with her. His is a patient of hers. Patient is a 74 y.o. male presenting with dizziness. History provided by: Patient and medical records Dizziness No Known Allergies Home Medications: Prior to Admission medications Medication Sig Start Date End Date Taking? Authorizing Provider amLODIPine (NORVASC) 10 mg Oral Tablet Take by mouth daily. Yes Provider, Historical lisinopril-hydrochlorothiazide (PRINZIDE;ZESTORETIC) 20-12.5 mg Oral Tablet Take 1 Tab by mouth daily. Yes Provider, Historical meclizine (ANTIVERT) 25 mg Oral Tablet Take by mouth as needed for Dizziness. Yes Provider, Historical metoprolol succinate ER (TOPROL-XL) 100 mg Oral Tablet Sustained Release 24 hr Take 100 mg by mouthdaily. Yes Provider, Historical Past Medical History: Past Medical History Diagnosis Date ??? Hypertension Social History: reports that he has been smoking Pipe. He does not have any smokeless tobacco history on file. He reports that he drinks alcohol. He reports that he does not use illicit drugs. Family History: History reviewed. No pertinent family history. Surgical History: History reviewed. No pertinent past surgical history. Review of Systems Neurological: Positive for dizziness. All other systems reviewed and are negative. Blood pressure 129/73, pulse 66, temperature 97.4 ??F (36.3 ??C), temperature source Oral, resp. rate 16, height 6' 3 (1.905 m), weight 247 lb (112.038 kg), SpO2 98 %. Physical Exam Constitutional: He is oriented to person, place, and time. He appears well- developed and well-nourished. No distress. HENT: Head: Normocephalic and atraumatic. Both tympanic membranes are erythematous with some loss of landmark, particularly the right. No mastoid tenderness. Oropharynx widely patent. No lesions in the mouth. Eyes: Conjunctivae and EOM are normal. Pupils are equal, round, and reactive to light. Neck: Normal range of motion. Neck supple. Cardiovascular: Normal rate, regular rhythm and normal heart sounds. Exam reveals no gallop and no friction rub. No murmur heard. Pulmonary/Chest: Effort normal and breath sounds normal. Abdominal: Soft. He exhibits no distension. There is no tenderness. There is no rebound and no guarding. Musculoskeletal: Normal range of motion. He exhibits no edema. Neurological: He is alert and oriented to person, place, and time. No cranial nerve deficit. Coordination normal. Good strength and sensation x4 extremities. Mental status normal. No ataxia. Normal finger to nose testing bilaterally. Normal [id number] testing. Mild intention tremor of both hands. Skin: Skin is warm and dry. Psychiatric: He has a normal mood and affect. Nursing note and vitals reviewed. Procedures Radiology/EKG/Labs: EKG on my interpretation is a sinus rhythm at a rate of 74. No evidence of any ischemia or injury. Single PVC. Results for orders placed or performed during the hospital encounter of 12/22/15 CT HEAD WO CONTRAST Narrative CT HEAD WO CONTRAST 12/22/2015 8:12 PM HISTORY: -DIZZINESS, bilateral ear infections. Compare: None Mild to moderate sinusitis with greatest involvement in right maxillary sinus Visualized mastoids clear Atrophy and ischemic leukoencephalopathy noted. No hemorrhage or mass effect. No fracture or extraaxial collection. Impression Impression: No acute findings of the brain. XR CHEST PA AND LATERAL Narrative XR CHEST PA AND LATERAL 12/22/2015 8:11 PM HISTORY: -DIZZINESS, hyponatremia. Compare: November 12, 2014 Heart size normal No pneumothorax Mild atelectasis noted Impression IMPRESSION: Mild atelectasis left base CBC WITH AUTO DIFF Result Value Ref Range WBC 8.6 4.0 - 11.0 x10(3)/mcL RBC 4.74 4.30 - 5.81 x10(6)/mcL Hgb 15.0 13.5 - 17.1 gm/dL Hct 42.8 38.9 - 51.6 % MCV 90.2 82.5 - 99.8 fL MCH 31.6 27.0 - 34.3 pg MCHC 35.0 32.1 - 35.3 gm/dL RDW 13.4 11.5 - 15.0 % Platelet 339 144 - 423 x10(3)/mcL MPV 8.2 6.8 - 10.8 fL BASIC METABOLIC PANEL Result Value Ref Range Sodium 125 (L) 136 - 145 mmol/L Potassium 3.8 3.5 - 5.0 mmol/L Chloride 89 (L) 98 - 107 mmol/L Total CO2 22 22 - 29 mmol/L Anion Gap 14 7 - 16 mmol/L Calcium 9.0 8.8 - 10.2 mg/dL Glucose Lvl 115 (H) 82 - 100 mg/dL BUN 17 8 - 23 mg/dL Creatinine 0.83 0.67 - 1.30 mg/dL GFR Afr Am >60 GFR Non Afr Am >60 TROPONIN-T Result Value Ref Range Troponin-T <0.01 <=0.00 ng/mL TROPONIN-T Result Value Ref Range Troponin-T <0.01 <=0.00 ng/mL DIFFERENTIAL Result Value Ref Range Neut Percent 57.6 % Lymph Percent 25.6 % Coke Percent 13.5 % Eos Percent 2.5 % Baso Percent 0.8 % Neut# 5.0 1.8 - 7.7 x10(3)/mcL Lymph# 2.2 0.6 - 4.8 x10(3)/mcL Coke# 1.2 0.0 - 1.3 x10(3)/mcL Eos# 0.2 0.0 - 0.5 x10(3)/mcL Baso# 0.1 0.0 - 0.2 x10(3)/mcL TROPONIN-T Result Value Ref Range Troponin-T <0.01 <=0.00 ng/mL EK EKG 12 LEAD Narrative NOTICE: Preliminary tracing available for review; Final Interpretation by physician to follow. Impression Stationary ECG Study [facility] Interpretive Statements SINUS RHYTHM WITH OCCASIONAL VENTRICULAR PREMATURE COMPLEXES ED Course: Appropriate laboratory and radiology studies reviewed Patient was given dose of IV Rocephin and started on normal saline. Patient appeared well here in the ER. Medical Decision Making: Patient appears to have otitis media. This certainly could be causing someof his symptoms. Nothing to suggest posterior circulation ischemia. Patient was discussed with Leighann who is on-call for Dr. Hernandez. Because of the patient's hyponatremia we do believe he shouldbe admitted to the hospital with repeat labs in the morning. Additional antibiotics will be left up to the admitting service as he was given a dose of Rocephin here. Blood pressure was fine here. No evidence of any acute CVA or worrisome cardiac process. ED Clinical Impression: Recurrent acute otitis media of both ears, unspecified otitis media type (primary encounter diagnosis) Dizziness Hyponatremia Critical Care time Condition at Discharge/Transfer from Department: Stable This chart was completed using voice recognition technology and may contain unintended errors Jose J Mayen MD 12/23/15 0139 documented in this encounter Miscellaneous Notes * Plan of Care - Janeth Collier RN - 12/23/2015 10:37 AM EST Problem: Safety: Fall Risk Goal: Patient will remain free of falls and injury Outcome: Progressing Bed in lowest position, call light within reach Problem: Pain Management Goal: The patient???s stated pain goal will be reached and maintained. The patient???s stated pain goal will be reached and maintained Outcome: Progressing Pt denies pain Problem: Psycho/Social/Spiritual Goal: Patient will identify sources of support and strength Outcome: Progressing at bedside * Plan of Care - Marita Inman RN - 12/23/2015 2:32 AM EST Problem: Safety: Fall Risk Goal: Patient will remain free of falls and injury Outcome: Progressing Bed in lowest position and locked Call light and bedside table within reach Non skid footwear on Side rails up X2 Pt instructed to call for assistance Problem: Pain Management Goal: The patient???s stated pain goal will be reached and maintained. The patient???s stated pain goal will be reached and maintained Outcome: Progressing Patient has denied pain this shift Problem: Psycho/Social/Spiritual Goal: Patient will identify sources of support and strength Outcome: Progressing Spouse has remained at bedside throughout shift documented in this encounter Plan of Treatment Not on file documented as of this encounter Procedures Procedure Name Priority Date/Time Associated Diagnosis Comments SCANNED RHYTHM STRIPS 12/25/2015 9:[address] CHEST W CONTRAST GRACE 12/23/2015 3 :33 PM EST SODIUM LEVEL URINE Routine 12/23/2015 8: 10 AM EST OSMOLALITY URINE Routine 12/23/2015 8:10 AM EST URINALYSIS Routine 12/23/2015 8:10 AM EST THYROID STIMULATING HORMONE Routine 12/23/2015 5:30 AM EST T4, FREE (THYROXINE) Routine 12/23/2015 5:30 AM EST PROSTATE SPECIFIC ANTIGEN (TUMOR MARKER) Routine 12/23/2015 5:30 AM EST PHOSPHORUS LEVEL Routine 12/23/2015 5:30 AM EST OSMOLALITY STAT 12/23/2015 5:30 AM EST MAGNESIUM LEVEL Routine 12/23/2015 5:30 AM EST HEMOGLOBIN A1C Routine 12/23/2015 5:30 AM EST LIPID SCREEN Routine 12/23/2015 5:30 AM EST BASIC METABOLIC PANEL Routine 12/23/2015 5:30 AM EST TROPONIN-T Timed 12/23/2015 1:02 AM EST TROPONIN-T STAT 12/22/2015 10:[address] HEAD WO CONTRAST STAT 12/22/2015 8 :12 PM EST XR CHEST PA AND LATERAL GRACE 12/22/2015 8:11 PM EST TROPONIN-T STAT 12/22/2015 7:00 PM EST DIFFERENTIAL STAT 12/22/2015 7:00 PM EST CBC WITH DIFF STAT 12/22/2015 7:00 PM EST BASIC METABOLIC PANEL STAT 12/22/2015 7:00 PM EST EK EKG 12 LEAD STAT 12/22/2015 6:49 PM EST documented in this encounter Results * SCANNED RHYTHM STRIPS (12/25/2015 9:51 PM EST) Anatomical Region Laterality Modality Other 12/25/2015 9:51 PM EST us Unknown Unknown IMG ECG ORDERABLES Final Result * CT CHEST W CONTRAST (12/23/2015 3:33 PM EST) Anatomical Region Laterality Modality Chest Computed Tomogra phy 12/23/2015 3:33 PM EST Impressions 12/23/2015 4:14 PM EST IMPRESSION: There are 2 noncalcified nodules on the right one 5 mm in the right upper lobe 1 10 mm in the right lower lobe. There are also several calcified nodules Noncalcified nodules are nonspecific and could be granulomatous or neoplastic For the largest nodule a PET scan could be attempted although this is borderline in size for evaluation with PET scanning Code follow-up Narrative 12/23/2015 4:[address] CHEST W CONTRAST ?? 12/23/2015 3:33 PM HISTORY: ??-smoker, hyponatremia. ?? COMPARE: December 22, 2015 FINDINGS: 1. Millimeter [...] images of the upper abdomen are normal Procedure Note Carlin Hollins MD - 12/23/2015 CT CHEST W CONTRAST 12/23/2015 3:33 PM HISTORY: -smoker, hyponatremia. COMPARE: December 22, 2015 FINDINGS: 1. Millimeter thick axial sections from lung apex through the upperabdomen performed following 75 cc Isovue-370 There are several scattered under 1.5 cm low-density lesions in thethyroid bilaterally probably benign colloid cysts. There is heavy atherosclerotic calcification of the coronary arteries particularly the LAD compatible with atherosclerotic coronary arterydisease There is no mediastinal or hilar adenopathy. The tracheobronchial tree ispatent 5 mm noncalcified nodule seen in the right upper lobe (image 19) 10 mm noncalcified nodule seen in the right lower lobe which is smoothlymarginated There are several calcified granulomas present in the right upper lobe.There is a small intrafissural lymph node measuring 5 mm in an inferior accessoryfissure on the right The images of the upper abdomen are normal IMPRESSION: There are 2 noncalcified nodules on the right one 5 mm in the right upperlobe 1 10 mm in the right lower lobe. There are also several calcified nodules Noncalcified nodules are nonspecific and could be granulomatous orneoplastic For the largest nodule a PET scan could be attempted although this isborderline in size for evaluation with PET scanning Code follow-up Kim He MD IMG CT ORDERABLES Fi nal Result * (ABNORMAL) URINALYSIS (12/23/2015 8:10 AM EST) [facility] UA Color Straw [facility] UA Appear Clear Clear [facility]A Glucose Negative Negative [facility] UA Ketones Negative Negative [facility] UA Blood Negative Negative [facility] UA pH 5.5 5.0 - 8.0 [facility] Comment:Reference range bishop d for random specimens only. UA Protein Negative Negative [facility] UA Urobilinogen 0.2 E.U./dL <=1 E.U./dL [facility] UA Nitrite Negative Negative [facility] Leuk Est Trace(A) Negative [facility] UA Spec Grav 1.010 1.001 - 1.035 [facility] Comment:Reference range bishop d for random specimens only. UA WBC 0-2 0 - 4 /HPF [facility] Urine specimen (specimen) URINE SPECIMEN COLLECTION, CLEAN CATCH / Unknown 12/23/2015 8:10 AM EST 12/23/2015 11:58 AM EST us Kim He MD URINE ORDERABLES Fin al Result [facility] [address], [place] [id number] * OSMOLALITY URINE (12/23/2015 8:10 AM EST) [facility] Urine Osmolality 357 50 - 1,400 mOsm/kg [facility] Comment: Normal Range: ??50 mOSM/kg during maximum water diuresis to ? 1400 mOSM/kg during maximum urinary concentration Reference range valid for random specimens only. Urine specimen (specimen) 12/23/2015 8:10 AM EST 12/23/2015 11:09 AM EST us Jose J Mayen MD URINE ORDERABLES Final Result Performing Organization Address [facility] de Phone Number [facility] [address] [place] [address] * SODIUM LEVEL URINE (12/23/2015 8:10 AM EST) Urine Sodium 68 mmol/L [facility] Urine specimen (specimen) 12/23/2015 8:10 AM EST 12/23/2015 11:09 AM EST us Jose J Mayen MD URINE ORDERABLES Final Result Performing Organization Address [facility] [place] [address] * (ABNORMAL) OSMOLALITY (12/23/2015 5:30 AM EST) Osmo-serum 271(L) 275 - 295 mOsm/kg [facility] Blood specimen (specimen) UPPER LIMB STRUCTURE / Unknown 12/23/2015 5:30 AM EST 12/23/2015 7:57 AM EST us Jose J Mayen MD CHEMISTRY ORDERABLES Final Res ult Performing Organization Address [facility] [place] [address] * (ABNORMAL) LIPID SCREEN (12/23/2015 5:30 AM EST) Cholesterol 173 <=200 mg/dL [facility] Comment: < 200 ?Desirable 200 - 239 ? Borderline High >= 240 ?High Triglyceride 98 <=150 mg/dL [facility] Comment: < 150 ? Normal 150 - 199 ?Borderline High 200 - 499 ?High ??>= 500 ? Very High HDL 50 >=40 mg/dL [facility] Comment: ?? > 60 ?Optimal 40 - 60 ?Acceptable ?? < 40 ?Low LDL Calculated 103(H) <=100 mg/dL [facility] Comment: ??< 100 ?Optimal 100 - 129 ? Near or above optimal 130 - 159 ? Borderline High 160 - 189 ? High >= 190 ?Very High Blood specimen (specimen) UPPER LIMB STRUCTURE / Unknown 12/23/2015 5:30 AM EST 12/23/2015 7:57 AM EST us Arian Waldron MD CHEMISTRY ORDERABLES Edit ed Result - Final [facility] [address] [place] [address] * HEMOGLOBIN A1C (12/23/2015 5:30 AM EST) Hgb A1c 5.5 <=7.0 % [facility] Comment: Reference Interval for Hgb A1c Hgb A1c ?Interpretation ? < 6.0 ?Non-Diabetic Range 6.0 - 7.0 ? ADA Therapeutic Target ??> 7.0 ? Action suggested Blood specimen (specimen) UPPER LIMB STRUCTURE / Unknown 12/23/2015 5:30 AM EST 12/23/2015 7:57 AM EST us Arian Waldron MD CHEMISTRY ORDERABLES Cynthia etienne Result [facility] [address] [place] [address] * PROSTATE SPECIFIC ANTIGEN (TUMOR MARKER) (12/23/2015 5:30 AM EST) Total PSA 1.44 ng/mL [facility] Comment: 2008 ISMA Best Practice Statement Guidelines-Age Adjusted Reference Intervals: Age Range ? Whites ?Americans ? Americans 40-49 years ? 0-2.5 ng/mL ? 0-2.0 ng/mL ? 0-2.0 ng/mL 50-59 years ? 0-3.5 ng/mL ? 0-4.0 ng/mL ? 0-3.0 ng/mL 60-69 years ? 0-4.5 ng/mL ? 0-4.5 ng/mL ? 0-4.0 ng/mL 70-79 years ? 0-6.5 ng/mL ? 0-5.5 ng/mL ? 0-5.0 ng/mL [facility] uses the [employer] Total PSA assay, [...] Waldron MD CHEMISTRY ORDERABLES [place] [address] * (ABNORMAL) T4, FREE (THYROXINE) (12/23/2015 5:30 AM EST) Free T4 2.08(H) 0.93 - 1.70 ng/dL [facility] Blood specimen (specimen) UPPER LIMB STRUCTURE / Unknown 12/23/2015 5:30 AM EST 12/23/2015 7:57 AM EST Arian Waldron MD CHEMISTRY ORDERABLES [place] [address] * THYROID STIMULATING HORMONE (12/23/2015 5:30 AM EST) TSH 1.290 0.270 - 4.200 mcIU/mL [facility] Blood specimen (specimen) UPPER LIMB STRUCTURE / Unknown 12/23/2015 5:30 AM EST 12/23/2015 7:57 AM EST Arian Waldron MD CHEMISTRY ORDERABLES Cynthia l Result Performing Organization Address City/[facility]/ZIP Co de Phone Number [facility] [address] [place] [address] * PHOSPHORUS LEVEL (12/23/2015 5:30 AM EST) Phosphorus 4.5 2.5 - 4.5 mg/dL [facility] Blood specimen (specimen) UPPER LIMB STRUCTURE / Unknown 12/23/2015 5:30 AM EST 12/23/2015 5:33 AM EST Arian Waldron MD CHEMISTRY ORDERABLES Cynthia l Result Performing Organization Address [facility] Co de Phone Number [facility] [address] [place] [address] * MAGNESIUM LEVEL (12/23/2015 5:30 AM EST) Pathologist [facility] Magnesium 1.7 1.6 - 2.4 mg/dL [facility] Blood specimen (specimen) UPPER LIMB STRUCTURE / Unknown 12/23/2015 5:30 AM EST 12/23/2015 5:33 AM EST Arian Waldron MD CHEMISTRY ORDERABLES Cynthia l Result Performing Organization Address [facility] Co de Phone Number [facility] [address] [place] [address] * (ABNORMAL) BASIC METABOLIC PANEL (12/23/2015 5:30 AM EST) Sodium 127(L) 136 - 145 mmol/L [facility] Potassium 3.9 3.5 - 5.0 mmol/L [facility] Chloride 93(L) 98 - 107 mmol/L [facility] Total CO2 22 22 - 29 mmol/L [facility] Anion Gap 12 7 - 16 mmol/L [facility] Calcium 8.5(L) 8.8 - 10.2 mg/dL [facility] Glucose Lvl 110(H) 82 - 100 mg/dL [facility] BUN 17 8 - 23 mg/dL [facility] Creatinine 0.83 0.67 - 1.30 mg/dL [facility] GFR Afr Am >60 [facility] GFR Non Afr Am >60 [facility] Blood specimen (specimen) UPPER LIMB STRUCTURE / Unknown 12/23/2015 5:30 AM EST 12/23/2015 5:33 AM EST Arian Waldron MD CHEMISTRY ORDERABLES Edit ed Result - Final Performing Organization Address [facility] Co de Phone Number [facility] [address] [place] [address] * TROPONIN-T (12/23/2015 1:02 AM EST) Troponin-T <0.01 <=0.00 ng/mL [facility] Comment: Values > or = 0.01 ng/mL have been shown to have prognostic value. Blood specimen (specimen) 12/23/2015 1:02 AM EST 12/23/2015 1:08 AM EST Jose J Mayen MD CHEMISTRY ORDERABLES Final Res ult Performing Organization Address [facility] de Phone Number [facility] [address] [place] [address] * TROPONIN-T (12/22/2015 10:12 PM EST) Troponin-T <0.01 <=0.00 ng/mL [facility] Comment: Values > or = 0.01 ng/mL have been shown to have prognostic value. Blood specimen (specimen) 12/22/2015 10:12 PM EST 12/22/2015 10:17 PM EST Jose J Mayen MD CHEMISTRY ORDERABLES Final Res ult Performing Organization Address [facility] Co de Phone Number [facility] [address] [place] [address] * CT HEAD WO CONTRAST (12/22/2015 8:12 [...] Impression: No acute findings of the brain. us Jose J Mayen MD IM CT ORDERABLES Final Result * XR CHEST PA AND LATERAL (12/22/2015 8:11 PM EST) Anatomical Region Laterality Modality Chest Radiographic Kim [...] atelectasis noted IMPRESSION: Mild atelectasis left base us Jose J Mayen MD IMG DIAGNOSTIC IMAGING ORDERAB LES Final Result * DIFFERENTIAL (12/22/2015 7:00 PM EST) [facility] Neut Percent 57.6 % [facility] Lymph Percent 25.6 % [facility] Coke Percent 13.5 % [facility] Eos Percent 2.5 % [facility] Baso Percent 0.8 % [facility] Neut# 5.0 1.8 - 7.7 x10(3)/mcL [facility] Lymph# 2.2 0.6 - 4.8 x10(3)/mcL [facility] Coke# 1.2 0.0 - 1.3 x10(3)/mcL [facility] Eos# 0.2 0.0 - 0.5 x10(3)/mcL [facility] Baso# 0.1 0.0 - 0.2 x10(3)/mcL [facility] Blood specimen (specimen) 12/22/2015 7:00 PM EST 12/22/2015 7:20 PM EST [facility] HEMATOLOGY ORDERABL ES Final Result Performing Organization Address [facility]/ZIP Co de Phone Number [facility] [address] [place] [address] * TROPONIN-T (12/22/2015 7:00 PM EST) [facility] Troponin-T <0.01 <=0.00 ng/mL [facility] Comment: Values > or = 0.01 ng/mL have been shown to have prognostic value. Blood specimen (specimen) 12/22/2015 7:00 PM EST 12/22/2015 7:20 PM EST Jose J Mayen MD CHEMISTRY ORDERABLES Final Res ult Performing Organization Address City/[facility]/ZIP Co de Phone Number [facility] [address] [place] [address] * (ABNORMAL) BASIC METABOLIC PANEL (12/22/2015 7:00 PM EST) [facility] Sodium 125(L) 136 - 145 mmol/L [facility] Potassium 3.8 3.5 - 5.0 mmol/L [facility] Chloride 89(L) 98 - 107 mmol/L [facility] Total CO2 22 22 - 29 mmol/L [facility] Anion Gap 14 7 - 16 mmol/L [facility] Calcium 9.0 8.8 - 10.2 mg/dL [facility] Glucose Lvl 115(H) 82 - 100 mg/dL [facility] BUN 17 8 - 23 mg/dL [facility] Creatinine 0.83 0.67 - 1.30 mg/dL [facility] GFR Afr Am >60 [facility] GFR Non Afr Am >60 [facility] Blood specimen (specimen) UPPER LIMB STRUCTURE / Unknown 12/22/2015 7:00 PM EST 12/22/2015 7:20 PM EST us Jose J Mayen MD CHEMISTRY ORDERABLES Edited Re sult - Final [facility] [address], [place] [id number] * CBC WITH AUTO DIFF (12/22/2015 7:00 PM EST) [facility] WBC 8.6 4.0 - 11.0 x10(3)/mcL [facility] RBC 4.74 4.30 - 5.81 x10(6)/mcL [facility] Hgb 15.0 13.5 - 17.1 gm/dL [facility] Hct 42.8 38.9 - 51.6 % [facility] MCV 90.2 82.5 - 99.8 fL [facility] MCH 31.6 27.0 - 34.3 pg [facility] MCHC 35.0 32.1 - 35.3 gm/dL [facility] RDW 13.4 11.5 - 15.0 % [facility] Platelet 339 144 - 423 x10(3)/mcL [facility] MPV 8.2 6.8 - 10.8 fL [facility] Blood specimen (specimen) UPPER LIMB STRUCTURE / Unknown 12/22/2015 7:00 PM EST 12/22/2015 7:20 PM EST us Jose J Mayen MD HEMATOLOGY ORDERABLES Final Re sult [facility] [address] [place] [address] * EK EKG 12 LEAD (12/22/2015 6:49 PM EST) Anatomical Region Laterality Modality Other 12/22/2015 6:49 PM EST Impressions 12/23/2015 9:27 AM EST ? Stationary ECG Study ?[facility] ? Interpretive Statements ? SINUS RHYTHM WITH OCCASIONAL VENTRICULAR PREMATURE COMPLEXES Electronically Signed On 12-23-2015 9:27:15 EST by Benedicto Jacobsen MD Narrative Procedure Note Benedicto Jacobsen MD - 12/23/2015 IMPRESSION Stationary ECG Study 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 Elevated blood sugar Other abnormal glucose Essential hypertension Unspecified essential hypertension Tobacco use Tobacco use disorder documented in this encounter Admitting Diagnoses Diagnosis Hyponatremia Hyposmolality and/or hyponatremia Recurrent acute otitis media of both ears Unspecified otitis media Dizziness Dizziness and giddiness documented in this encounter Administered Medications Inactive Administered Medications - up to 1 most recent administrations Medication Order MAR Action Action Date Dose Rate Site 0.9 % NaCl infusion Intravenous, at 100 mL/hr, CONTINUOUS, Starting on Wed12/22/15 at 2130, Until Wed12/23/15 at 0729 New Bag 12/22/2015 9:39 PM EST 100 mL/hr amLODIPine (NORVASC) tablet 5 mg 5 mg, Oral, DAILY, First dose on Wed12/23/15 at 0900, Until Discontinued Given 12/23/2015 8:57 AM EST 5 mg cefTRIAXone (ROCEPHIN) 1 gram/50 mL IVPB 1 g 1 g, Intravenous, ONCE, 1 dose, On Wed12/22/15 at 2130, Administer over 30 Minutes IV Started 12/22/2015 9:54 PM EST 1 g 100 mL/hr iopamidol (ISOVUE-370) 76 % injection (LOW) 75 mL 75 mL, Intravenous, ONCE PRN, 1 dose, Starting on Wed12/23/15 at 1440, Until Wed12/23/15 at 1530, Radiology Procedure, VESICANT , CT (Contrasts) Given 12/23/2015 3:30 PM EST 75 mL metoprolol succinate ER (TOPROL-XL) XL tablet 100 mg 100 mg, Oral, DAILY, First dose on Wed12/23/15 at 0900, Until Discontinued, Do not crush or chew. Swallow whole. Given 12/23/2015 8:57 AM EST 100 mg bzflekzm-byemuykez-tohsrdq rtisone (CORTISPORIN) otic suspension 4 Drop 4 Drop, Both Ears, 3 TIMES DAILY, First dose on Wed12/23/15 at 1400, Until Discontinued, Waste Sort Code = BKC Given 12/23/2015 3:13 PM EST 4 Drops Both Ears pantoprazole (PROTONIX) tablet 40 mg 40 mg, Oral, DAILY, First dose on Wed12/23/15 at 0900, Until Discontinued, Do not crush or chew Given 12/23/2015 8:57 AM EST 40 mg sodium chloride 0.9% syringe Intravenous, ONCE PRN, 1 dose, Starting on Wed12/23/15 at 1440, Until Wed12/23/15 at 1530, Line Care, Flush every shift or after IV medication, CT (Contrasts) Given 12/23/2015 3:30 PM EST documented in this encounter Discontinued Medications Medication Sig Discontinue Reason Start Date End Da te predniSONE (DELTASONE) 20 mg Oral TabletIndications:Otit is media with rupture of tympanic membrane, bilateral,Hearing loss, bilateral,Tinnitus, bilateral Take 2 tabs on day 1 and then 1 tab on days 2 through 4. Stop Taking at Discharge 07/29/2015 12/22/2015 METOPROLOL SUCCINATE ORAL Take by mouth. Stop Taking at Discharge 12/22/2015 LISINOPRIL ORAL Take by mouth. Stop Taking at Discharge 12/22/2015 lisinopril-hydrochloro thiazide (PRINZIDE;ZESTORETIC) 20-12.5 mg Oral TabletIndications:Otit is media with rupture of tympanic membrane, bilateral Take 1 Tab by mouth daily. Stop Taking at Discharge 12/23/2015 documented as of this encounter Historical Medications * This list may reflect changes made after this encounter. meclizine (ANTIVERT) 25 mg Oral Tablet Take by mouth as needed for Dizziness. 04/02/2016 added in this encounter Active and Recently Administered Medications Times are shown in EST. Scheduled Medication Order 12/21/2015 12/22/2015 12/23/2015 amLODIPine (NORVASC) tablet 5 mg (CANCELED) 5 mg, Oral, DAILY, First dose on Wed12/23/15 at 0900, Until Discontinued 0857 (Given - Provid er: Janeth Collier RN) cefTRIAXone (ROCEPHIN) 1 gram/50 mL IVPB 1 g (COMPLETED) 1 g, Intravenous, ONCE, 1 dose, On Wed12/22/15 at 2130, Administer over 30 Minutes 2154 (IV Started - Provider: Carina Moon RN)2224 (Stopped - Provider: Marita Inman RN - Comment: stopped before arriving to floor) metoprolol succinate ER (TOPROL-XL) XL tablet 100 mg (CANCELED) 100 mg, Oral, DAILY, First dose on Wed12/23/15 at 0900, Until Discontinued, Do not crush or chew. Swallow whole. 0857 (Given - Provid er: Janeth Collier RN) chrbdhid-tmyvriyhp-hxfbftg rtisone (CORTISPORIN) otic suspension 4 Drop 4 Drop, Both Ears, 3 TIMES DAILY, First dose on Wed12/23/15 at 1400, Until Discontinued, Waste Sort Code = BKC 1513 (Given - Provid er: Janeth Collier RN) pantoprazole (PROTONIX) tablet 40 mg (CANCELED)(Linked Group 1) 40 mg, Oral, DAILY, First dose on Wed12/23/15 at 0900, Until Discontinued, Do not crush or chew 0857 (Given - Provid er: Janeth Collier RN) Continuous Medication Order 12/21/2015 12/22/2015 12/23/2015 0.9 % NaCl infusion () Intravenous, at 100 mL/hr, CONTINUOUS, Starting on Wed12/22/15 at 2130, Until Wed12/23/15 at 0729 2139 (New Bag - Provider: Carina Moon RN) 0731 (Stopped - Provider: Janeth Collier RN) PRN Medication Order 12/21/2015 12/22/2015 12/23/2015 acetaminophen (TYLENOL) tablet 650 mg(Linked Group 2) 650 mg, Oral, EVERY 4 HOURS PRN, Starting on Wed12/22/15 at 2324, Until Wed12/23/15 at 2015, Pain, Fever, Acetaminophen or ibuprofen may be given per patient preference. Maximum adult dose of acetaminophen is 4000 mg from all sources in 24 hours. iopamidol (ISOVUE-370) 76 % injection (LOW) 75 mL (COMPLETED) 75 mL, Intravenous, ONCE PRN, 1 dose, Starting on Wed12/23/15 at 1440, Until Wed12/23/15 at 1530, Radiology Procedure, VESICANT , CT (Contrasts) 1530 (Given - Provid er: Chel Draper, RT) sodium chloride 0.9% syringe (COMPLETED) Intravenous, ONCE PRN, 1 dose, Starting on 12/23/15 at 1440, Until Wed12/23/15 at 1530, Line Care, Flush every shift or after IV medication, CT (Contrasts) 1530 (Given - Provid er: Chel Draper, RT) Linked Groups Order Group 1: pantoprazole (PROTONIX) injection 40 mg (CANCELED) 40 mg, Intravenous, DAILY, First dose on Wed12/23/15 at 0900, Until Discontinued, Dilute with 10 mL of 0.9% NaCl. Administer over 2 minutes. Or pantoprazole (PROTONIX) tablet 40 mg (CANCELED)Jump to med 40 mg, Oral, DAILY, First dose on Wed12/23/15 at 0900, Until Discontinued, Do not crush or chew Group 2: acetaminophen (TYLENOL) tablet 650 mgJump to med 650 mg, Oral, EVERY 4 HOURS PRN, Starting on 12/22/15 at 2324, Until Wed12/23/15 at 2015, Pain, Fever, Acetaminophen or ibuprofen may be given per patient preference. Maximum adult dose of acetaminophen is 4000 mg from all sources in 24 hours. Or ibuprofen (ADVIL;MOTRIN) tablet 600 mg (CANCELED) 600 mg, Oral, EVERY 6 HOURS PRN, Starting on 12/22/15 at 2324, Until Wed12/23/15 at 2015, Pain, Fever, Acetaminophen or ibuprofen may be given per patient preference. documented in this encounter Orders Medications Ordered That Rafiq ht Not Have Been Administered Count Last Ordered Date First Ordered Date acetaminophen (TYLENOL) tablet 650 mg 1 ibuprofen (ADVIL;MOTRIN) tablet 600 mg 1 ondansetron (ZOFRAN) 4 mg/2 mL injection 4 mg 1 12/22/2015 pantoprazole (PROTONIX) injection 40 mg 1 0 12/22/2015 Nursing Count Last Ordered Date First Orde red Date ADMISSION 1 12/22/2015 ED ENTER ADMISSION ORDER 12/22/2015 Transfer Count Last Ordered Date First Orde red Date BED REQUEST 12/22/2015 documented in this encounter
--- OUTSIDE RECORDS SUMMARY | 2024-09-12 12:48 | XMS_ITS | Encounter Summary ---
Author Organization [facility] Address [facility] [place] [address] Care Team Providers Care Dividing Machine Operator Helper Name Role Phone Dora Hernandez MD Primary Care Provider [phone] Reason for Referral * MRI/CAT Scan (Routine) - Closed Specialty Diagnoses / Procedures Referred By Contac t Referred To Contact Radiology Diagnoses Lung nodules Procedures PET CT SKULL BASE TO MID THIGH Dain Burris MD [address] [place] [phone] Phone: tel: fax: Referral ID Status Reason Start Date Expiration Date Visits Re quested Visits Authorized [id number] Closed 12/27/2015 2016 5 5 Reason for Visit * MRI/CAT Scan (Routine) - Closed Specialty Diagnoses / Procedures Referred By Contac t Referred To Contact Radiology Diagnoses Lung nodules Procedures PET CT SKULL BASE TO MID THIGH Dain Burris MD [address] [place] [phone] Phone: tel: fax: Referral ID Status Reason Start Date Expiration Date Visits Re quested Visits Authorized [id number] Closed 12/27/2015 2016 5 5 Encounter Details Date Type Department Care Team (Latest Contact Info) Description 01/16/2016 11:16 AM EDT - 01/16/2016 11:18 AM EDT Hospital Encounter EDG PET CT [facility] [place] [address] Dain Burris MD [address] [facility] [address] [place] [address] Lung nodules Discharge Disposition: Home or Self Care Social [...] POC Routine 01/16/2016 11: 35 AM EDT documented in this encounter Results * PET CT SKULL BASE TO MID [...] Clinical: R91.8-Other nonspecific abnormal finding of lung wmukk-HDH-71-CM lung nodule. TECHNIQUE: 15.0 mCi F-18 FDG [...] Clinical: R91.8-Other nonspecific abnormal finding of lung ufzqn-JJJ-60-CMlung nodule. TECHNIQUE: 15.0 mCi F-18 FDG injected [...] falsely negative by PET scan. Follow-upCT suggested. Dain Burris MD IMG PET ORDERABLES Final Result * (ABNORMAL) GLUCOSE METER POC (01/16/2016 11:35 AM EDT) [facility] Glucose Meter POC 115(H) 70 - 100 mg/dL [facility] Blood specimen (specimen) 01/16/2016 11:35 AM EDT 01/16/2016 11:35 AM EDT Dain Burris MD POINT OF CARE TEST ORDERABLES Fi nal Result [facility] [address] [facility] [place] [address] documented in this encounter Visit Diagnoses Diagnosis Lung nodules Other nonspecific abnormal finding of lung field documented in this encounter Care Teams Dividing Machine Operator Helper Relationship Specialty Start Date End Date Dora Hernandez MD [address] [facility] [place] [address] PCP - General Family Medicine 12/24/15 documented as of this encounter
--- OUTSIDE RECORDS SUMMARY | 2024-09-12 12:48 | XMS_ITS | Encounter Summary ---
Author Organization [place] [address] Care Team Providers Care Manager Retail Name Role Phone Dora Hernandez MD Primary Care Provider [phone] Reason for Referral * MRI/CAT Scan (Routine) - Closed Specialty Diagnoses / Procedures Referred By Contac t Referred To Contact Radiology Diagnoses Pulmonary nodule, right Procedures CT CHEST W CONTRAST Dain Burris MD [address] [address] Phone: tel: fax: [facility] [address] [place] [address] Phone: tel: fax: Referral ID Status Reason Start Date Expiration Date Visits Re quested Visits Authorized [id number] Closed 07/22/2016 07/22/2017 1 1 Reason for Visit * Reason Comments Results CT chest * Consultation (Routine) - Closed Specialty Diagnoses / Procedures Referred By Contac t Referred To Contact Pulmonology Diagnoses Pulmonary nodule, right Dora Hernandez MD [address] [facility] [place] [address] Phone: tel: fax: Dain Burris MD [address] [address] Phone: tel: fax: Referral ID Status Reason Start Date Expiration Date V isits Requested Visits Authorized [id number] Closed Specialty Services Required 2015 12/25/2016 99 99 Encounter Details Date Type Department Care Team (Late st Contact Info) Description 07/22/2016 2:15 PM EDT Office Visit SEP Pulmonology [facility] [address] [address] Dain Burris MD [address] [address] Pulmonary nodule, right (Primary Dx); Former smoker; Essential hypertension; Hyponatremia; Non morbid obesity due to excess calories Social History Tobacco Use Types Packs/Day Years [...] Sign Reading Time Taken Comments Blood Pressure 132/80 07/22/2016 2:18 PM EDT Pulse 56 07/22/2016 2:18 PM EDT Temperature - - Respiratory Rate - - Oxygen Saturation 97% 07/22/2016 2:18 PM EDT at rest Inhaled Oxygen Concentration - - Weight 107.5 kg (237 lb) 07/22/2016 2:18 PM EDT Height 190.5 cm (6' 3 ) 07/22/2016 2:18 PM EDT Body Mass Index 29.62 07/22/2016 2:18 PM EDT documented in this encounter Progress Notes * Dain Burris MD - 07/22/2016 2:15 PM EDT Images from the original note were not included. [facility] Followup Visit PATIENT: LOY CREWS CSN: [id number] AGE TODAY: 75 y.o. DATE: [address]: Dora Hernandez MD SERVICE DATE: 07/22/2016 [facility] [place] BY: Dain Burris MD Subjective: Patient ID: Loy Crews returns today for follow up of The primary encounter diagnosis was Pulmonary nodule, right. Diagnoses of Former smoker, Essential hypertension, Hyponatremia, and Non morbid obesity due to excess calories were also pertinent to this visit. CHIEF COMPLAINT Chief Complaint Patient presents with ??? Results CT chest HPI Loy Crews is a 75 y.o. male who presents Has no smoked now on a pipe No sx's [...] anxiety Peripheral vascular: Denies claudication Past Medical History Diagnosis Date ??? Hypertension [...] Allergies Objective: PHYSICAL EXAM VITAL SIGNS: Vitals: 07/22/16 1418 BP: 132/80 BP Location: Right arm Patient Position: Sitting Pulse: 56 SpO2: 97% Weight: 237 lb (107.5 kg) Height: 6' 3 (1.905 m) Wt Readings from Last 3 Encounters: 07/22/16 237 lb (107.5 kg) 07/09/16 240 lb (108.9 kg) 04/24/16 246 lb 3.2 oz (111.7 kg) General Appearance: Alert, cooperative, no distress, [...] 4.0 2015 CL 97 (L) 2015 CREATININE 0.9 07/20/2016 BUN 14 2015 CO2 21 (L) 2015 TSH 1.290 12/23/2015 PSA 1.44 12/23/2015 GLU 116 (H) 2015 HGBA1C 5.5 12/23/2015 Ct Chest W Contrast Result Date: 07/20/2016 CT CHEST W CONTRAST 07/20/2016 12:40 PM HISTORY: R91.1-Solitary pulmonary regscz-FVF-43-CM Contrast:75 mL Isovue 370 IV Automatic exposure [...] size. Recommend 6-12 month follow-up chest CT. Assessment and Plan: Diagnostic tests were reviewed and questions answered. Diagnosis, care plan and treatment options were discussed. The patient understand instructions and will follow up as directed. 1. Pulmonary nodule, right 2. Former smoker 3. Essential hypertension 4. Hyponatremia 5. Non morbid obesity due to excess calories No more smoking Repeat ct chest in 6 mos Need to get in shape documented in this encounter Miscellaneous Notes * Addendum Note - Analilia Rutherford RMA - 07/22/2016 2:46 PM EDT Addended by: ANALILIA RUTHERFORD on: 07/22/2016 02:46 PM Modules accepted: Orders documented in this [...] measures 2.1 cm in greatest dimension. Phillip ramirez next day Impressions 12/30/2016 11:12 AM EST [...] and characterization. Favio Fisher Code follow-up Code ashley next Narrative 12/30/2016 11:[address] CHEST W CONTRAST 12/30/2016 History: Clinical: 76 years. Male . R91.1-Solitary pulmonary ixcbgc-VYV-10-CM. Smoking history. 75 mL of Isovue-370 administered [...] History: Clinical: 76 years. Male . R91.1-Solitary zgdbqjgvqwhcvpr-TRM-09-CM. Smoking history. 75 mL of Isovue-370 administered [...] Fisher Code follow-up Code jot next day us Dain Burris MD IMG CT ORDERABLES Edited Result - Final documented in this encounter Visit Diagnoses Diagnosis Pulmonary nodule, right- Primary Solitary pulmonary nodule Former smoker Personal history of tobacco use, presenting hazards to health Essential hypertension Unspecified essential hypertension Hyponatremia Hyposmolality and/or hyponatremia Non morbid obesity due to excess calories Pulmonary nodule, right Solitary pulmonary nodule documented in this encounter Historical Medications * This list may reflect changes made after this encounter. lactobacillus rhamnosus, GG, (CULTURELLE) 10 billion cell Oral Capsule Take 1 Cap by mouth daily. 01/06/2017 potassium & sodium citrate-citric acid-sucrose (POLYCITRA) 550-500-334 mg/5 mL Oral Solution Take by mouth 4 times daily (with meals and nightly). 01/06/2017 senna-docusate (SENOKOT-S) 8.6-50 mg Oral Tablet Take by mouth nightly. 12/01/2016 magnesium hydroxide (MILK OF MAGNESIA) 400 mg/5 mL Oral Suspension Take by mouth daily. 01/06/2017 added in this encounter Care Teams Manager Retail Relationship Specialty Start Date End Date Dora Hernandez MD [address] [place] [address] PCP - General Family Medicine 12/24/15 documented as of this encounter
--- OUTSIDE RECORDS SUMMARY | 2024-09-12 12:48 | XMS_ITS | Encounter Summary ---
Author Organization [place] [address] Care Team Providers Care Verse Writer Name Role Phone Dora Hernandez MD Primary Care Provider [phone] Reason for Visit * Reason Comments Medication Refill Encounter Details Date Type Department Care Team (Late st Contact Info) Description 06/22/2016 [facility] [address] [place] [address] Dora Hernandez MD [address] [place] [address] Medication Refill Social History Tobacco [...] ONE TABLET BY MOUTH DAILY 30 Tab 3 06/22/2016 10/27/2016 documented in this encounter Plan of Treatment Not on file documented as of this encounter Visit Diagnoses Not on filedocumented in this encounter Discontinued Medications Medication Sig Discontinue Reason Start Date End Da te losartan-hydrochlorothiaz fadia (HYZAAR) 50-12.5 mg Oral TabletIndications:Alejandra al hypertension,Peripheral edema Take 1 Tab by mouth daily. Reorder 04/02/2016 06/22/2016 documented as of this encounter Care Teams Verse Writer Relationship Specialty Start Date End Date Dora Hernandez MD [address] [facility] [address] [place] [phone] PCP - General Family Medicine 12/24/15 documented as of this encounter
--- OUTSIDE RECORDS SUMMARY | 2024-09-12 12:48 | XMS_ITS | Encounter Summary ---
Author Organization [place] [address] Care Team Providers Care Gold Wheel Blocker And Polisher Name Role Phone Dora Hernandez MD Primary Care Provider [phone] Reason for Referral * MRI/CAT Scan (Routine) - Closed Specialty Diagnoses / Procedures Referred By Contac t Referred To Contact Radiology Diagnoses Lung nodules Procedures PET CT SKULL BASE TO MID THIGH Dain Burris MD [address] [address] Phone: tel: fax: Referral ID Status Reason Start Date Expiration Date Visits Re quested Visits Authorized [id number] Closed 12/27/2015 2016 5 5 Encounter Details Date Type Department Care Team (Late st Contact Info) Description 12/27/2015 Orders Only SEP Pulmonology [facility] [address] [address] Dain Burris MD [address] [address] Lung nodules (Primary Dx) Social History Tobacco Use Types [...] documented as of this encounter Results * PET CT SKULL [...] Clinical: R91.8-Other nonspecific abnormal finding of lung wqulw-MBD-62-CM lung nodule. TECHNIQUE: 15.0 mCi F-18 FDG [...] Clinical: R91.8-Other nonspecific abnormal finding of lung eaqdh-PCD-10-CMlung nodule. TECHNIQUE: 15.0 mCi F-18 FDG injected [...] Burris MD IMG PET ORDERABLES Final Result documented in this encounter Visit Diagnoses Diagnosis Lung nodules- Primary Other nonspecific abnormal finding of lung field Lung nodules Other nonspecific abnormal finding of lung field documented in this encounter Care Teams Gold Wheel Blocker And Polisher Relationship Specialty Start Date End Date Dora Hernandez MD [address] [place] [address] PCP - General Family Medicine 12/24/15 documented as of this encounter
--- OUTSIDE RECORDS SUMMARY | 2024-09-12 12:48 | XMS_ITS | Encounter Summary ---
Author Organization [place] [address] Care Team Providers Care Trail Maintenance Worker Name Role Phone Dora Hernandez MD Primary Care Provider [phone] Encounter Details Date Type Department Care Team (Latest Contact Info) Description 2015 3:11 PM EST - 2015 11:59 PM EST Hospital [facility] [place] [id number] Hyponatremia Discharge Disposition: Home or Self Care [...] Procedure Name Priority Date/Time Associated Diagnosis Comments BASIC METABOLIC PANEL Routine 2015 10:51 AM EST Hyponatremia documented in this encounter Results * (ABNORMAL) BASIC METABOLIC PANEL (2015 10:51 AM EST) Sodium 133(L) 136 - 145 mmol/L [facility] Potassium 4.0 3.5 - 5.0 mmol/L [facility] Chloride 97(L) 98 - 107 mmol/L [facility] Total CO2 21(L) 22 - 29 mmol/L [facility] Anion Gap 15 7 - 16 mmol/L [facility] Calcium 9.1 8.8 - 10.2 mg/dL [facility] Glucose Lvl 116(H) 82 - 100 mg/dL [facility] BUN 14 8 - 23 mg/dL [facility] Creatinine 0.83 0.67 - 1.30 mg/dL [facility] GFR Afr Am >60 [facility] GFR Non Afr Am >60 [facility] Blood specimen (specimen) UPPER LIMB STRUCTURE / Unknown 2015 10:51 AM EST 2015 3:33 PM EST us Dora Hernandez MD CHEMISTRY ORDERABLES Edited Res ult - Final [facility] [address] [place] [address] documented in this encounter Visit Diagnoses Diagnosis Hyponatremia Hyposmolality and/or hyponatremia documented in this encounter Care Teams Trail Maintenance Worker Relationship Specialty Start Date End Date Dora Hernandez MD [address] [place] [address] PCP - General Family Medicine 12/24/15 documented as of this encounter
--- OUTSIDE RECORDS SUMMARY | 2024-09-12 12:48 | XMS_ITS | Encounter Summary ---
Author Organization [place] [address] Care Team Providers Care Lifeline Representatives Name Role Phone Dora Hernandez MD Primary Care Provider [phone] Reason for Referral * Consultation (Routine) - Closed Specialty Diagnoses / Procedures Referred By Contac t Referred To Contact Pulmonology Diagnoses Pulmonary nodule, right Dora Hernandez MD [address] [place] [address] Phone: tel: fax: Dain Burris MD [address] [place] [id number] Phone: tel: fax: Referral ID Status Reason Start Date Expiration Date V isits Requested Visits Authorized [id number] Closed Specialty Services Required 2015 12/25/2016 99 99 * Ultrasound (Routine) - Closed Specialty Diagnoses / Procedures Referred By Contac t Referred To Contact Radiology Diagnoses Thyroid lesion Procedures US THYROID Dora Hernandez MD [address] [facility] [place] [address] Phone: tel: fax: Referral ID Status Reason Start Date Expiration Date Visits Re quested Visits Authorized [id number] Closed 2015 12/25/2016 1 1 * Consultation (Routine) - Closed Specialty Diagnoses / Procedures Referred By Contac t Referred To Contact Gastroenterology Diagnoses Screening for colon cancer Dora Hernandez MD [address] [facility] [place] [address] Phone: tel: fax: Young Hobson MD Phone: tel: fax: Referral ID Status Reason Start Date Expiration Date Visits Re quested Visits Authorized [id number] Closed 2015 12/25/2016 99 99 Reason for Visit * Reason Comments Establish Care Hospital Follow Up Pt states that he roberts s been having ear problems and problems with his BP. 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; IFG (impaired fasting glucose); Other recurrent acute nonsuppurative otitis media of both ears; Dizziness; Pulmonary nodule, right Social History Tobacco Use Types Packs/Day Years [...] Sign Reading Time Taken Comments Blood Pressure 132/74 2015 9:59 AM EST Pulse 64 2015 9:59 AM EST Temperature 36.7 ??C (98 ??F) 2015 9:59 AM EST Respiratory Rate - - Oxygen Saturation 98% 2015 9:59 AM EST Inhaled Oxygen Concentration - - Weight 112.5 kg (248 lb) 2015 9:59 AM EST Height 190.5 cm (6' 3 ) 2015 9:59 AM EST Body Mass Index 31 2015 9:59 AM EST documented in this encounter Ordered Prescriptions Prescription Sig Dispense Quantity Refills Last Filled Start Date End Date losartan (COZAAR) 50 mg Oral TabletIndications:E ssential hypertension Take 1 Tab by mouth daily. 90 Tab 1 2015 12/31/2015 aspirin (ASPIRIN LOW DOSE) 81 mg Oral Tablet, Delayed Release (E.C.)Indications:E ssential hypertension Take 1 Tab by mouth daily. 2015 12/16/2022 metoprolol succinate ER (TOPROL-XL) 100 mg Oral Tablet Sustained Release 24 hrIndications:Essen tial hypertension Take 1 Tab by mouth daily. 90 Tab 1 2015 07/01/2016 amLODIPine (NORVASC) 10 mg Oral TabletIndications:E ssential hypertension Take 1 Tab by mouth daily. 90 Tab 1 2015 12/31/2015 losartan (COZAAR) 50 mg Oral TabletIndications:E ssential hypertension Take 1 Tab by mouth 2 times daily. 180 Tab 3 2015 2015 documented in this encounter Progress Notes * Jennifer Garcia RMA - 2015 10:48 AM EST Venipuncture R ac #[id number] wnl * Dora Hernandez MD - 2015 10:12 AM EST Subjective: Patient ID: Jac Garvin is a 74 y.o. male. Chief Complaint Patient presents with ??? Establish Care ??? Hospital Follow Up Pt states that he has been having ear problems and problems with his BP. HPI: Here to establish care. He used to see Dr. Tsai. He has a friend who is a lay health advocate and he sees him when he needs any medical attention. C/o bilateral ear pain since July. He went to urgent care and was prescribed amoxicillin and eardrops. Tinnitus and decreased hearing. No fever. Wednesday, he had dizziness so he went to the ER. He was found to have hyponatremia and he was admitted for further evaluation. Head CT was negative. Dizziness was felt to be related to labyrinthitis. He was prescribed cipro otic and was referred to ENT. Dizziness has resolved. Regarding hyponatremia. Chest CT was done since he uses tobacco. Been smoking since , quit in the , smoked again in , quit again in 2002. Then started smoking pipe 2 years. Pt denies weight loss or fatigue. No SOB. No fever. C/o cough and he thinks it is due to lisinopril. Patients past medical, family and social histories were reviewed and updated. There were no changesexcept as noted. Review of Systems Objective: Filed Vitals: 12/26/15 0959 BP: 132/74 Pulse: 64 Temp: 98 ??F (36.7 ??C) TempSrc: Oral Height: 6' 3 (1.905 m) Weight: 248 lb (112.492 kg) SpO2: 98% Body mass index is 31 kg/(m^2). Physical Exam Constitutional: He is oriented to person, place, and time. He appears well- developed. No distress. HENT: Head: Normocephalic. Right Ear: External ear normal. Left Ear: External ear normal. Mouth/Throat: Oropharynx is clear and moist. No oropharyngeal exudate. Eyes: Conjunctivae are normal. Right eye exhibits no discharge. Left eye exhibits no discharge. Neck: Neck supple. Cardiovascular: Normal rate and regular rhythm. Pulmonary/Chest: Effort normal and breath sounds normal. Musculoskeletal: He exhibits no edema. Neurological: He is alert and oriented to person, place, and time. Skin: He is not diaphoretic. Psychiatric: He has a normal mood and affect. His behavior is normal. Assessment and Plan: Jac was seen today for establish care and hospital follow up. Diagnoses and all orders for this visit: Essential hypertension, controlled Orders: - Discontinue: losartan (COZAAR) 50 mg Oral Tablet; Take 1 Tab by mouth 2 times daily. - amLODIPine (NORVASC) 10 mg Oral Tablet; Take 1 Tab by mouth daily. - metoprolol succinate ER (TOPROL-XL) 100 mg Oral Tablet Sustained Release 24 hr; Take 1 Tab by mouth daily. - aspirin (ASPIRIN LOW DOSE) 81 mg Oral Tablet, Delayed Release (E.C.); Take 1 Tab by mouth daily. - losartan (COZAAR) 50 mg Oral Tablet; Take 1 Tab by mouth daily. Screening for colon cancer Orders: - Referral to Gastroenterology for Screening Colonoscopy Hyponatremia Orders: - Cancel: Basic Metabolic Panel; Future - CA COLLECTION VENOUS BLOOD,VENIPUNCTURE - Basic Metabolic Panel - Clinic Collect; Future Tobacco use Advised to quit. Thyroid lesion Orders: - Ultrasound thyroid; Future ASHD (arteriosclerotic heart disease) Asymptomatic. Start ASA daily. On BB. Need to see cardiology. He says he had a negative angiogram 11 years ago. Need for pneumococcal vaccination Orders: - Pneumococcal Conjugate Vaccine 13 Valent Non morbid obesity due to excess calories Lifestyle modification recommended to help lose weight. 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 IFG (impaired fasting glucose) No DM. Other recurrent acute nonsuppurative otitis media of both ears Finish cipro otic. Keep appt with ENT on 01/19. Dizziness, resolved. Pulmonary nodule, right Orders: - Ambulatory referral to Pulmonology Per radiology, nodule is borderline size for PET scan. I have asked Dr. Walker and he looked at CT. Too small for PET and direct biopsy. Pt to see Pulmo, serial imaging and treatment if increases in size. documented in this encounter Plan of Treatment Scheduled Referrals Name Type Priority Associated Diagnoses Order Schedule AMB REFERRAL TO GASTROENTEROLOGY Outpatient Referral Routine Screening for colon cancer Ordered: 2015 AMB REFERRAL TO PULMONOLOGY Outpatient Referral Routine Pulmonary nodule, right Ordered: 2015 documented as of this encounter Results * US THYROID (01/14/2016 10:24 AM EDT) [...] for stability,as detailed above. Dora Hernandez MD [facility] US ORDERABLES Final Result * (ABNORMAL) BASIC METABOLIC PANEL (2015 10:51 AM EST) Sodium 133(L) 136 - 145 mmol/L [facility] Potassium 4.0 3.5 - 5.0 mmol/L [facility] Chloride 97(L) 98 - 107 mmol/L [facility] Total CO2 21(L) 22 - 29 mmol/L [facility] Anion Gap 15 7 - 16 mmol/L [facility] Calcium 9.1 8.8 - 10.2 mg/dL [facility] Glucose Lvl 116(H) 82 - 100 mg/dL [facility] BUN 14 8 - 23 mg/dL [facility] Creatinine 0.83 0.67 - 1.30 mg/dL [facility] GFR Afr Am >60 [facility] GFR Non Afr Am >60 [facility] Blood specimen (specimen) UPPER LIMB STRUCTURE / Unknown 2015 10:51 AM EST 2015 3:33 PM EST Dora Hernandez MD CHEMISTRY ORDERABLES Edited Res ult - Final [facility] [address] [place] [id number] documented in this encounter Visit Diagnoses Diagnosis Essential hypertension- Primary Unspecified essential hypertension Screening for colon cancer Special screening for malignant neoplasms, colon Hyponatremia Hyposmolality and/or hyponatremia Tobacco use Tobacco use disorder Thyroid lesion ASHD (arteriosclerotic heart disease) Coronary atherosclerosis of unspecified type of vessel, tangirnaq or graft Need for pneumococcal vaccination Need for prophylactic vaccination against streptococcus pneumoniae (pneumococcus) Non morbid obesity due to excess calories 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 DELETE-Therapy completed 12/23/2015 2015 lisinopril (PRINIVIL;ZESTRIL) 20 mg Oral Tablet Take 1 Tab by mouth daily. Side effects 12/23/2015 2015 amLODIPine (NORVASC) 10 mg Oral TabletIndications:Otitis media with rupture of tympanic membrane, bilateral Take by mouth daily. Reorder 2015 metoprolol succinate ER (TOPROL-XL) 100 mg Oral Tablet Sustained Release 24 hrIndications:Otitis media with rupture of tympanic membrane, bilateral Take 100 mg by mouth daily. Reorder 2015 losartan (COZAAR) 50 mg Oral TabletIndications:Essent ial hypertension Take 1 Tab by mouth 2 times daily. DELETE- Entered in Error 2015 2015 documented as of this encounter Orders Immunization/Injection Count Last Ordered Date First Ordered Date PNEUM CONJ VAC13 1 2015 Charge Count Last Ordered Date First Orde red Date CA COLLECTION VENOUS BLOOD,VENIPUNCTURE 1 0 2015 documented in this encounter Care Teams Lifeline Representatives Relationship Specialty Start Date End Date Dora Hernandez MD [address] [place] [address] PCP - General Family Medicine 12/24/15 documented as of this encounter
--- OUTSIDE RECORDS SUMMARY | 2024-09-12 12:48 | XMS_ITS | Encounter Summary ---
Author Organization [place] [address] Care Team Providers Care Regional Property Manager Name Role Phone Dora Hernandez MD Primary Care Provider [phone] Reason for Visit * Reason Comments Medication Refill Encounter Details Date Type Department Care Team (Late st Contact Info) Description 06/22/2016 Refill [facility] [address] [place] [address] Dora Hernandez MD [address] [place] [address] Medication Refill Social History Tobacco [...] on filedocumented in this encounter Care Teams Regional Property Manager Relationship Specialty Start Date End Date Dora Hernandez MD [address] [place] [address] PCP - General Family Medicine 12/24/15 documented as of this encounter
--- OUTSIDE RECORDS SUMMARY | 2024-09-12 12:48 | XMS_ITS | Encounter Summary ---
Author Organization [place] [address] Care Team Providers Care Oxide Furnace Tender Name Role Phone Dora Hernandez MD Primary Care Provider [phone] Reason for Visit * Reason Onset Date Comments Anxiety 01/13/2016 Encounter Details Date Type Department Care Team (Late st Contact Info) Description 01/13/2016 Telephone [facility] [address] [address] Dora Hernandez MD [address] [facility] [place] [address] Anxiety Social History Tobacco Use Types Packs/Day Years [...] 0.5 mg Oral TabletIndications: Anxiety disorder, unspecified anxiety disorder type Take 1 Tab by mouth every 8 hours as needed for Anxiety. 15 Tab 0 01/16/2016 7 LORazepam (ATIVAN) 0.5 mg Oral TabletIndications: Anxiety disorder, unspecified anxiety disorder type Take 1 tablet 45 minutes prior to procedure. 1 Tab 0 01/15/2016 6 LORazepam (ATIVAN) 0.5 mg Oral TabletIndications: Anxiety disorder, unspecified anxiety disorder type Take 1 tablet 45 minutes prior to procedure. 1 Tab 0 01/13/2016 6 documented in this encounter Miscellaneous Notes * Telephone Encounter - Alissa Quinones - 01/16/2016 2:39 PM EDT Advised pt's that medication was sent in. * Telephone Encounter - Pastor Rojas RMA - 01/16/2016 12:25 PM EDT Called in to pharmacy Thank you * Addendum Note - Kim Cortes MD - 01/16/2016 12:14 PM EDTAddended by: KIM CORTES on: 01/16/2016 12:14 PM Modules accepted: Orders * Telephone Encounter - Kim Cortes MD - 01/16/2016 12:13 PM EDT Okay to call in and let know. To make f/u appt if this is something he thinks he will need to stay on. I prescribed #15 tablets * Telephone Encounter - Alissa Quinones - 01/16/2016 11:36 AM EDT The pt's called & wants to know if the medication can be sent in today for the pt. [facility] is [facility]. She wants to know if a pill for tonight & one for tomorrow canbe sent in for him. The medication sent in on 01-15-16 was taken this morning before he had a test done. The pt is worried that he has cancer & is very anxious. * Addendum Note - Pastor Rojas RMA - 01/15/2016 2:57 PM EDTAddended by: PASTOR NUNES on: 01/15/2016 02:57 PM Modules accepted: Orders, Medications * Telephone Encounter - Pastor Rojas RMA - 01/15/2016 2:50 PM EDT Called in to pharmacy Also call pt and left message on voice mail and advised Thank you * Telephone Encounter - Sanjiv Egan MD - 01/15/2016 2:42 PM EDT Refill the Ativan ordered by Dr Tompkins on Wednesday. * Telephone Encounter - Alissa Quinones - 01/15/2016 12:54 PM EDT Please call Pt's called back. The pt had an ultra sound of his thyroid & took the one pill that was sent in for him. The pet scan will be done tomorrow & he is very anxious. Please call [phone]. * Telephone Encounter - Pastor Rojas RMA - 01/15/2016 12:00 PM EDT Left message for pt to please call back Thank you * Telephone Encounter - Sanjiv Egan MD - 01/15/2016 11:44 AM EDT Ativan was sent to his pharmacy on Wednesday01/13/[address] Tompkins. * Telephone Encounter - Alissa Quinones - 01/15/2016 10:09 AM EDT Needs Rx The pt's called & said that the Pet Scan was not done because it had not been approved by his insurance. It has been approved & is scheduled for tomorrow. She wants to know if Lorazepam can be sent into his pharmacy. The pt is very nervous & she wants to know if more than one pill can be sent in. Please call & let her know if approved. [phone]. Norma Champagne * Telephone Encounter - Genoveva Monae MA - 01/13/2016 11:41 AM EDT Called rx into pharmacy and advised pts * Telephone Encounter - Kim Cortes MD - 01/13/2016 11:37 AM EDT Okay to call in and let know. * Telephone Encounter - Kathrine Myrick - 01/13/2016 11:11 AM EDT Pt has testing tomorrow for Pet Scan & U/S of thyroid. He has a lot of anxiety and his is asking if will call in something for him today to take before going tomorrow. Please advise. Thanks. Norma Champagne documented in this encounter Plan of Treatment Not on file documented as of this encounter Visit Diagnoses Diagnosis Anxiety disorder, unspecified anxiety disorder type- Primary documented in this encounter Discontinued Medications Medication Sig Discontinue Reason Start Date End Da te LORazepam (ATIVAN) 0.5 mg Oral TabletIndications:Anxiet y disorder, unspecified anxiety disorder type Take 1 tablet 45 minutes prior to procedure. Reorder 01/13/2016 01/15/2016 LORazepam (ATIVAN) 0.5 mg Oral TabletIndications:Anxiet y disorder, unspecified anxiety disorder type Take 1 tablet 45 minutes prior to procedure. Reorder 01/15/2016 01/16/2016 documented as of this encounter Care Teams Oxide Furnace Tender Relationship Specialty Start Date End Date Dora Hernandez MD [address] [place] [address] PCP - General Family Medicine 12/24/15 documented as of this encounter
--- OUTSIDE RECORDS SUMMARY | 2024-09-12 12:48 | XMS_ITS | Encounter Summary ---
Author Organization [place] [address] Care Team Providers Care Windshield Wiper Repairer Name Role Phone Dora Hernandez MD Primary Care Provider [phone] Reason for Visit * Reason Onset Date Comments Medication Problem 03/30/2016 Encounter Details Date Type Department Care Team (Late st Contact Info) Description 03/30/2016 Telephone [facility] [address] [place] [address] Dora Hernandez MD [address] [place] [address] Medication Problem Social History Tobacco [...] Telephone Encounter - Ree Stout CCMA - 04/02/2016 4:11 PM EDT Called GI, this is the Quickest appointment that he can get in * Telephone Encounter - Dora Hernandez MD - 04/02/2016 3:10 PM EDT meds changed. pls see if we can try to get an appt with GI sooner per pt request d/t constipation. If not ok to keep the April 24. Thanks. * Telephone Encounter - Alissa Quinones - 04/02/2016 2:[address] Hernandez, do you need to see the pt or can the change in medications be made without him being seen? They also asked about getting him in earlier with Dr Hobson. * Telephone Encounter - Grace Rojas RMA - 03/30/2016 12:29 PM EDT Please call pt to make appt with Dr Hernandez Thank you * Telephone Encounter - Coral Perdomo APRN - 03/30/2016 12:01 PM EDT He should be seen by her * Telephone Encounter - Alissa Quinones - 03/30/2016 10:41 AM EDT Please call Pt was seen last month & Dr Hernandez & she took the diuretic out of his bp medication. The ptlegs are swelling during the day & are painful. He wants to know if he can go back to Lisinopril HCTZ 20/12.5 instead of the Losartan 50 mg. The pt has an aptmt with Dr Hobson, a GI doctor but it isn't until 04-24-16. The pt is still havingtrouble with constipation & he wants to know if Dr Hernandez can get him in sooner. She referred him. Katlyna documented in this encounter Plan of Treatment Not on file documented as of this encounter Visit Diagnoses Not on filedocumented in this encounter Care Teams Windshield Wiper Repairer Relationship Specialty Start Date End Date Dora Hernandez MD [address] [place] [address] PCP - General Family Medicine 12/24/15 documented as of this encounter
--- OUTSIDE RECORDS SUMMARY | 2024-09-12 12:48 | XMS_ITS | Encounter Summary ---
Author Organization [place] [address] Care Team Providers Care Medicare Interviewer Name Role Phone Dora Hernandez MD Primary Care Provider [phone] Encounter Details Date Type Department Care Team (Late st Contact Info) Description 05/14/2016 Orders Only SEP [facility] [address] [facility] [address] [place] [address] Young Hobson MD [address] [place], [place] [id number] Social History Tobacco Use Types Packs/Day Years [...] Procedure Name Priority Date/Time Associated Diagnosis Comments GMED COLONOSCOPY Routine 05/14/2016 2:40 PM EDT documented in this encounter Results * GMED COLONOSCOPY (05/14/2016 2:40 PM EDT) 05/14/2016 2:40 PM EDT Impressions [facility] - 05/14/2016 2:59 PM EDT Moderate diverticulosis of the descending colon and sigmoid colon. Plan: Follow-up as needed This section is an excerpt of the full report. us Young Hobson MD GI PROCEDURE ORDERABLES Fin al Result [facility] [address] [place] [address] documented in this encounter Visit Diagnoses Not on filedocumented in this encounter Care Teams Medicare Interviewer Relationship Specialty Start Date End Date Dora Hernandez MD [address] [place] [address] PCP - General Family Medicine 12/24/15 documented as of this encounter
--- OUTSIDE RECORDS SUMMARY | 2024-09-12 12:48 | XMS_ITS | Encounter Summary ---
Author Organization [facility] Address [address] [facility] [address] [place] [address] Care Team Providers Care Powder Operator Name Role Phone Dora Hernandez MD Primary Care Provider [phone] Reason for Visit * Reason Comments Follow-up ear check Encounter Details Date Type Department Care Team (Late st Contact Info) Description 07/09/2016 9:45 AM EDT Office Visit [facility] [address] [address] Gigi Baez MD [address] [place] [address] [address] [place] [address] Acute otitis externa of right ear, unspecified type (Primary Dx) Social History Tobacco Use Types [...] Sign Reading Time Taken Comments Blood Pressure 158/78 07/09/2016 9:43 AM EDT Pulse - - Temperature - - Respiratory Rate - - Oxygen Saturation - - Inhaled Oxygen Concentration - - Weight 108.9 kg (240 lb) 07/09/2016 9:43 AM EDT Height 190.5 cm (6' 3 ) 07/09/2016 9:43 AM EDT Body Mass Index 30 07/09/2016 9:43 AM EDT documented in this encounter Ordered Prescriptions Prescription Sig Dispense Quantity Refills Last Filled Start Date End Date neomycin-polymyxin- hydrocortisone (CORTISPORIN) Otic SolutionIndications :Acute otitis externa of right ear, unspecified type Place 5 Drops into the right ear 2 times daily. X 5 days 10 mL 07/09/2016 01/06/2017 documented in this encounter Progress Notes * Gigi Baez MD - 07/09/2016 9:45 AM EDT Images from the original note were not included. Jac Garvin 1940 75 y.o. male 07/09/2016 Follow-Up Gigi Baez MD, [facility] Referring Provider: No ref. provider found Chief Complaint Patient presents with ??? Follow-up ear check HPI Jac Garvin is a 75 y.o. male who is here to follow up regarding the ears. Patient was last seen on 03-18-16. Patient states that since last visit symptoms have gotten worse. Right ear: decreased hearing Left ear: decreased hearing Additional symptoms: none; patient is asymptomatic Previous antibiotics include? no recent courses Current antibiotics include? no recent courses Allergy/Sinus medications? Flonase Previous ear drops used? None Current ear drops used? None Additional information The patient seen Oskar and was told he had wax Does the patient have any trouble with anesthesia? no Is there a family history of malignant hyperthermia? no Patient's medications, allergies, past medical, surgical, family and social histories were reviewedand updated in this EMR. Positive: ENT; Decreased hearing All 14 organ systems reviewed and negative except as above. Exam: Vitals: 07/09/16 0943 BP: 158/78 Weight: 240 lb (108.9 kg) Height: 6' 3 (1.905 m) Body mass index is 30 kg/(m^2). General: -: age appropriate oral communication, normal voice sounds, no stridor, well nourished, well developed, well groomed Head and Face: -: facial strength symmetrical, no abnormalities of head and face, saliva gland normal to inspection and palpation Eyes: -: ocular mobility and gaze alignment normal External Nose: -: Nasal dorsum grossly normal, without lesion Internal Nose: -: Septum midline, nasal mucosa normal in color and texture, turbinates normal Hearing: -: Clinical hearing thresholds-Normal Right Ear: -: Pre and post-auricular soft tissue and pinna normal EAC: (pale whitish moist debris) Left Ear: -: Left auricle, EAC and TM normal, Pre and post-auricular soft tissue and pinna normal Hearing Aid: Positive Oral Cavity: Dentures: upper, lower Oropharynx: Tonsils: absent Thyroid: -: Thyroid not enlarged, symmetric, no tenderness, mass, nodules noted Neck: -: No masses noted on palpation Lymphatic: -: Palpation of the carotid and paratracheal lymph nodes reveals no adenopathy Neurological: -: Normal mood and affect, Oriented to time, place and person, Alert, appropriate anddoes not appear agitated, Cranial nerves 2-9,11,12 intact Assessment and Plan: Jac was seen today for follow-up. Diagnoses and all orders for this visit: Acute otitis externa of right ear, unspecified type Orders: - Ear Microscope Exam - xoeuhgxm-xzdajlhgv-olsceeedvwezki (CORTISPORIN) Otic Solution; Place 5 Drops into the right ear 2times daily. X 5 days The patient has right otitis externa and I debrided the right ear today. His infection is mild. He does wear hearing aids. I will treat him with Cortisporin drops twice daily for 5 days. He will try to keep the right-sided hearing aid out as much as possible for a few days. Follow-up as needed. EAR MICROSCOPE EXAM: The patient was taken to the microscope room and the right ear was examined under microscopic guidance. Findings included --Pale white moist debris deep within the ear canal which I suctioned clear. No significant edema of the ear canal skin. Tympanic membrane intact. Ciprodex drops applied after cleaning. The patient tolerated the procedure well. No Follow-up on file. [facility] [address] [facility] [address] This note may have been partially dictated using [employer] voice recognition software and may contain unintended error. documented in this encounter Plan of Treatment Scheduled Orders Name Type Priority Associated Diagnoses Orde r Schedule LA EAR MICROSCOPY EXAMINATION LA Charge Routine Acute otitis externa of right ear, unspecified type Ordered: 07/09/2016 documented as of this encounter Visit Diagnoses Diagnosis Acute otitis externa of right ear, unspecified type- Primary documented in this encounter Care Teams Powder Operator Relationship Specialty Start Date End Date Dora Hernandez MD [address] [facility] [place] [address] PCP - General Family Medicine 12/24/15 documented as of this encounter
--- OUTSIDE RECORDS SUMMARY | 2024-09-12 12:48 | XMS_ITS | Encounter Summary ---
Author Organization [place] [address] Care Team Providers Care Physician Scientist Name Role Phone Dora Hernandez MD Primary Care Provider [phone] Reason for Visit * Reason Comments Medication Refill Encounter Details Date Type Department Care Team (Late st Contact Info) Description 08/08/2016 [facility] [address] [place] [address] Dora Hernandez MD [address] [place] [address] Medication Refill Social History Tobacco [...] 8OZ LIQUID & DRINK BY MOUTH DAILY 30 Each 2 08/10/2016 9 documented in this encounter Plan of Treatment Not on file documented as of this encounter Visit Diagnoses Not on filedocumented in this encounter Care Teams Physician Scientist Relationship Specialty Start Date End Date Dora Hernandez MD [address] [facility] [address] [place] [phone] PCP - General Family Medicine 12/24/15 documented as of this encounter
--- OUTSIDE RECORDS SUMMARY | 2024-09-12 12:48 | XMS_ITS | Encounter Summary ---
Author Organization [place] [address] Care Team Providers Care Video Operator Name Role Phone Dora Hernandez MD Primary Care Provider [phone] Reason for Visit * Reason Onset Date Comments Medication Problem 04/02/2016 Encounter Details Date Type Department Care Team (Late st Contact Info) Description 04/02/2016 Telephone [facility] [address] [place] [address] Dora Hernandez MD [address] [place] [address] Medication Problem Social History Tobacco [...] MIRALAX) 17 gram Oral Powder in Packet Take 17 g by mouth daily for 30 days. 30 Packet 2 04/02/2016 05/02/2016 documented in this encounter Miscellaneous Notes * Telephone Encounter - Grace Rojas, Malcolm - 04/07/2016 8:25 AM EDT Called and advised pt of response below Thank you * Telephone Encounter - Dora Hernandez MD - 04/06/2016 5:07 PM EDT Pt to keep appt with Dr Hobson on April 24. Increase fluid and fiber intake. See MD if has abd pain, nausea, vomiting, etc. * Telephone Encounter - Genoveva Harman - 04/06/2016 4:46 PM EDT He is still not having a bm and left voicemail wanting to know if there is anything else he can take? * Telephone Encounter - Dora Hernandez MD - 04/02/2016 4:57 PM EDT Rx resent. * Telephone Encounter - Alissa Quinones - 04/02/2016 4:00 PM EDT Please call Pharmacy has an rx for Miralax 1 packet with 2 refills. The directions is to take for 30 days. 1 packet is one dose. She the quanity be [address] Hernandez documented in this encounter Plan of Treatment Not on file documented as of this encounter Visit Diagnoses Not on filedocumented in this encounter Discontinued Medications Medication Sig Discontinue Reason Start Date End Da te polyethylene glycol (GLYCOLAX, MIRALAX) 17 gram Oral Powder in PacketIndications:Constip ation, chronic Take 17 g by mouth daily for 30 days. DELETE-Duplicate 04/02/2016 04/02/2016 documented as of this encounter Care Teams Video Operator Relationship Specialty Start Date End Date Dora Hernandez MD [address] [facility] [address] [place], [place] [address] PCP - General Family Medicine 12/24/15 documented as of this encounter
--- OUTSIDE RECORDS SUMMARY | 2024-09-12 12:48 | XMS_ITS | Encounter Summary ---
Author Organization [place] [address] Care Team Providers Care Developmental Therapist Name Role Phone Dora Hernandez MD Primary Care Provider [phone] Reason for Visit * Reason Onset Date Comments Other 05/21/2016 Encounter Details Date Type Department Care Team (Late st Contact Info) Description 05/21/2016 Telephone SEP Gastro [facility] [address] [facility] [address] [place] [address] Young Hobson MD [address] [place] [address] Other Social History Tobacco Use Types Packs/Day [...] encounter Miscellaneous Notes * Telephone Encounter - Qi Ga RN - 05/22/2016 1:24 PM EDT Diet was mailed. * Telephone Encounter - Meghan Bradley - 05/21/2016 3:15 PM EDT called to see if we can mail a diet to them re to his diverticulosis. documented in this encounter Plan of Treatment Not on file documented as of this encounter Visit Diagnoses Not on filedocumented in this encounter Care Teams Developmental Therapist Relationship Specialty Start Date End Date Dora Hernandez MD [address] [facility] [address] [place] [address] PCP - General Family Medicine 12/24/15 documented as of this encounter
--- OUTSIDE RECORDS SUMMARY | 2024-09-12 12:48 | XMS_ITS | Encounter Summary ---
Author Organization [place] [address] Care Team Providers Care Warehouse Operator Name Role Phone Dora Hernandez MD Primary Care Provider [phone] Encounter Details Date Type Department Care Team (Late st Contact Info) Description 12/27/2015 Orders Only SEP Pulmonology [facility] [address] [facility] Building [address] [place] [address] Dain Burris MD [address] [address] Lung nodule (Primary Dx) Social History Tobacco Use Types [...] documented as of this encounter Results * PULMONARY FUNCTION TEST (01/14/2016 10:32 AM EDT) 01/14/2016 10:3 2 AM EDT Impressions [facility] - 01/14/2016 10:32 AM EDT Good [...] Dain Burris MD PFT ORDERABLES Final Result [facility] [address] [place] [address] documented in this encounter Visit Diagnoses Diagnosis Lung nodule- Primary Solitary pulmonary nodule Lung nodule Solitary pulmonary nodule documented in this encounter Care Teams Warehouse Operator Relationship Specialty Start Date End Date Dora Hernandez MD [address] [place] [address] PCP - General Family Medicine 12/24/15 documented as of this encounter
--- OUTSIDE RECORDS SUMMARY | 2024-09-12 12:48 | XMS_ITS | Encounter Summary ---
Author Organization [facility] Address [address] [facility] [address] [place] [address] Care Team Providers Care Electroencephalographic Technologist Name Role Phone Dora Hernandez MD Primary Care Provider [phone] Reason for Visit * Reason Comments Follow-up ears Encounter Details Date Type Department Care Team (Latest Contact Info) Description 03/18/2016 2:15 PM EDT Office Visit [facility] [place] [address] [facility] [address] [place] [address] Joselyn Barron MD Bilateral sensorineural hearing loss (Primary Dx); Tinnitus, bilateral Social History Tobacco Use Types Packs/Day [...] Sign Reading Time Taken Comments Blood Pressure 156/81 03/18/2016 3:17 PM EDT Pulse - - Temperature - - Respiratory Rate - - Oxygen Saturation - - Inhaled Oxygen Concentration - - Weight 116.6 kg (257 lb) 03/18/2016 3:17 PM EDT Height 190.5 cm (6' 3 ) 03/18/2016 3:17 PM EDT Body Mass Index 32.12 03/18/2016 3:17 PM EDT documented in this encounter Progress Notes * Joselyn Barron MD - 03/18/2016 3:13 PM EDT Images from the original note were not included. Jac Garvin 1940 75 y.o. male 03/18/2016 Follow-Up Yoshi Barron MD, [facility] Referring Provider: No ref. provider found Chief Complaint Patient presents with ??? Follow-up ears HPI Jac Garvin is a 75 y.o. male who is here to follow up regarding ears and dizziness.Patient was last seen on 01-20-16 and was treated with Ciprodex and Flonase. Patient states that since last visit symptoms have improved. Since CYNDIE the patient has gotten hearing ids and states that they are working great. Right ear: tinnitus Left ear: tinnitus Additional symptoms: none; patient is asymptomatic Previous antibiotics include? no recent courses Current antibiotics include? no recent courses Allergy/Sinus medications? Nasal Steroids: fluticasone (Flonase); somewhat effective Previous ear drops used? None Current ear drops used? None Additional information Does the patient have any trouble with anesthesia? no Is there a family history of malignant hyperthermia? no Patient's medications, allergies, past medical, surgical, family and social histories were reviewedand updated in this EMR. Positive: ENT; Noises in the ear All 14 organ systems reviewed and negative except as above. Exam: There were no vitals filed for this visit.There is no weight on file to calculate BMI. General: -: well nourished, well developed, well groomed, age appropriate oral communication, normal voice sounds, no stridor Head and Face: -: no abnormalities of head and face, facial strength symmetrical Internal Nose: -: Septum midline, nasal mucosa normal in color and texture, turbinates normal Hearing: -: Clinical hearing thresholds-Normal Right Ear: -: Right auricle, EAC and TM Normal, Pre and post-auricular soft tissue and pinna normal Hearing Aid: Positive Left Ear: -: Left auricle, EAC and TM normal, Pre and post-auricular soft tissue and pinna normal Hearing Aid: Positive Oral Cavity: Dentures: upper, lower Oropharynx: Tonsils: absent Neurological: -: Alert, appropriate and does not appear agitated, Oriented to time, place and person, Normal mood and affect Assessment and Plan: Jac was seen today for follow-up. Diagnoses and all orders for this visit: Bilateral sensorineural hearing loss Tinnitus, bilateral Jac was seen previously for a left external otitis, treated with Cortisporin drops. He also was noted a sensorineural hearing loss. He now wears amplification is quite happy with this. He had someretraction of the tympanic membrane and was treated with steroid nasal spray. Further, he did have some imbalance and this has resolved. Today's exam shows bilateral hearing aids and healthy ear canals. I assured the patient. He seems to be doing well. He will maintain use of the hearing aids. He willcall back should he notice any sensation of blockage in his ear, or any imbalance. Will otherwise see him back as needed. No Follow-up on file. [facility] [address] [facility] [address] [facility] [phone] This note may have been partially dictated using [employer] voice recognition software and may contain unintended error. documented in this encounter Plan of Treatment Not on file documented as of this encounter Visit Diagnoses Diagnosis Bilateral sensorineural hearing loss- Primary Sensorineural hearing loss, bilateral Tinnitus, bilateral Unspecified tinnitus documented in this encounter Care Teams Electroencephalographic Technologist Relationship Specialty Start Date End Date Dora Hernandez MD [address] [facility] [place] [id number] PCP - General Family Medicine 12/24/15 documented as of this encounter
--- OUTSIDE RECORDS SUMMARY | 2024-09-12 12:48 | XMS_ITS | Encounter Summary ---
Author Organization [place] [address] Care Team Providers Care Automotive Engineering Teacher Name Role Phone Dora Hernandez MD Primary Care Provider [phone] Reason for Referral * MRI/CAT Scan (Routine) - Closed Specialty Diagnoses / Procedures Referred By Contac t Referred To Contact Radiology Diagnoses Pulmonary nodule, right Procedures CT CHEST W CONTRAST Dain Burris MD [address] [place], [place] [address] Phone: tel: fax: [place] [facility] [place] [address] Phone: tel: fax: Referral ID Status Reason Start Date Expiration Date Visits Re quested Visits Authorized [id number] Closed 01/17/2016 01/16/2017 1 1 Reason for Visit * MRI/CAT Scan (Routine) - Closed Specialty Diagnoses / Procedures Referred By Contac t Referred To Contact Radiology Diagnoses Pulmonary nodule, right Procedures CT CHEST W CONTRAST Dain Burris MD [address] [place] [address] Phone: tel: fax: [place] [facility] [address] [place] [address] Phone: tel: fax: Referral ID Status Reason Start Date Expiration Date Visits Re quested Visits Authorized [id number] Closed 01/17/2016 01/16/2017 1 1 Encounter Details Date Type Department Care Team (Latest Contact Info) Description 07/20/2016 12:01 PM EDT - 07/20/2016 11:59 PM EDT Hospital Encounter [place] [facility] [place] [address] Dain Burris MD [address] [facility] Building [address] [place] [address] Pulmonary nodule, right Discharge Disposition: [...] documented in this encounter Plan of Treatment Pending Results Name Type Priority Associated Diagnoses Date /Time CREATININE ISTAT Point of Care Testing Routine 07/20/2016 12:32 PM EDT documented as of this encounter Procedures Procedure Name Priority Date/Time Associated Diagnosis Comments CT CHEST W CONTRAST Routine 07/20/2016 1 2:40 PM EDT Pulmonary nodule, right CREATININE ISTAT Routine 07/20/2016 12:3 2 PM EDT documented in this encounter Results [...] CONTRAST ??07/20/2016 12:40 PM HISTORY: ??R91.1-Solitary pulmonary [id number] Contrast: 75 mL Isovue 370 IV Automatic [...] CONTRAST 07/20/2016 12:40 PM HISTORY: R91.1-Solitary pulmonary [id number] Contrast: 75 mL Isovue 370 IV Automatic [...] size. Recommend 6-12 month follow-up chest CT. Dain Burris MD IMG CT ORDERABLES Final Result * CREATININE ISTAT (07/20/2016 12:32 PM EDT) Creatinine 0.9 0.6 - 1.3 mg/dL [facility] Blood specimen (specimen) 07/20/2016 12:32 PM EDT 07/20/2016 12:32 PM EDT Dain Burris MD POINT OF CARE TEST ORDERABLES Fi nal Result [facility] [address] [facility] [place] [address] documented in this encounter Visit Diagnoses Diagnosis Pulmonary nodule, right Solitary pulmonary nodule documented in this encounter Administered Medications Inactive Administered Medications - up to 1 most recent administrations Medication Order MAR Action Action Date Dose Rate Site iopamidol (ISOVUE-370) 76 % injection (LOW) 75 mL 75 mL, Intravenous, ONCE PRN, 1 dose, Starting on Wed07/20/16 at 1221, Until Wed07/20/16 at 1241, Radiology Procedure, VESICANT , CT (Contrasts) Given 07/20/2016 12:41 PM EDT 75 mL sodium chloride 0.9% syringe Intravenous, ONCE PRN, 1 dose, Starting on Wed07/20/16 at 1222, Until Wed07/20/16 at 1241, Line Care, Flush every shift or after IV medication, CT (Contrasts) Given 07/20/2016 12:41 PM EDT 20 mL documented in this encounter Care Teams Automotive Engineering Teacher Relationship Specialty Start Date End Date Dora Hernandez MD [address] [place] [phone] PCP - General Family Medicine 12/24/15 documented as of this encounter
--- OUTSIDE RECORDS SUMMARY | 2024-09-12 12:48 | XMS_ITS | Encounter Summary ---
Author Organization [place] [address] Care Team Providers Care Dyeing Machine Feeder Name Role Phone Dora Hernandez MD Primary Care Provider [phone] Reason for Referral * GI Procedure (Routine) - Closed Specialty Diagnoses / Procedures Referred By Contac t Referred To Contact Internal Medicine-Gastroenterol ogy / General Surgery Diagnoses Constipation, chronic Procedures AMB COLONOSCOPY COMM ORDER Young Hobson MD Phone: tel: fax: Young Hobson MD Phone: tel: fax: Referral ID Status Reason Start Date Expiration Date Visits Re quested Visits Authorized [id number] Closed 04/24/2016 04/24/2017 1 1 Reason for Visit * Reason Comments Constipation new pt; started in F eb 2015; noticed after taking amox * Consultation (Routine) - Closed Specialty Diagnoses / Procedures Referred By Contac t Referred To Contact Gastroenterology Diagnoses Screening for colon cancer Dora Hernandez MD [address] [place] [address] Phone: tel: fax: Young Hobson MD Phone: tel: fax: Referral ID Status Reason Start Date Expiration Date Visits Re quested Visits Authorized [id number] Closed 2015 12/25/2016 99 99 Encounter Details Date Type Department Care Team (Late st Contact Info) Description 04/24/2016 8:50 AM EDT Office Visit SEP Gastro [facility] [address] [facility] [address] [place] [address] Young Hobson MD [address] [place] [address] Constipation, chronic (Primary Dx) Social History Tobacco Use Types [...] Sign Reading Time Taken Comments Blood Pressure 124/68 04/24/2016 8:54 AM EDT Pulse - - Temperature - - Respiratory Rate - - Oxygen Saturation - - Inhaled Oxygen Concentration - - Weight 111.7 kg (246 lb 3.2 oz) 04/24/2016 8:54 AM EDT Height 190.5 cm (6' 3 ) 04/24/2016 8:54 AM EDT Body Mass Index 30.77 04/24/2016 8:54 AM EDT documented in this encounter Progress Notes * Young Hobson MD - 04/24/2016 9:26 AM EDT CHIEF COMPLAINT Chief Complaint Patient presents with ??? Constipation new pt; started in Nov 2015; noticed after taking amox SUBJECTIVE Jac Garvin is a 75 y.o. male for whom a consultation is requested by Dora Davies MD for evaluation of constipation. The patient says he's never had problems with bowel habits until about July 2015, when he required a course of antibiotics. He developed diarrhea briefly, and since then has had problems with constipation. He describes this as a sensation of incomplete evacuation. He has bowel movements daily with laxatives he is taking. The stool is not particularly hard. He says he passes less material than he thinks is adequate. He denies rectal bleeding. He has used severaldifferent products including docusate, MiraLAX, milk of magnesia, and most recently senna which she is taking at night. He denies any change in medications. He has been eating some yogurt. At one point he was given some magnesium citrate. He says that induced a bowel movement but was delayed by 5 hours or so. He denies any weight loss. He had a recent PET scan raised a question of a long problem,but workup was negative for neoplasia. ROS Constitutional: Negative for fever, chills and unexpected weight change. HEENT: Negative for ear pain and trouble swallowing. Negative for visual disturbance. He has significant hearing loss. Respiratory: Negative for cough, chest tightness and shortness of breath. Cardiovascular: Negative for chest pain and leg swelling. Musculoskeletal: Negative for joint swelling and arthralgias. Skin: Negative for pallor. Neurological: Negative for dizziness, seizures and headaches. Hematological: Does not bruise/bleed easily. All other review of systems negative, except for those noted. MEDICATIONS Current Outpatient Prescriptions Medication Sig Dispense Refill ??? amLODIPine (NORVASC) 10 mg Oral Tablet Take 1 Tab by mouth daily. 90 Tab 1 ??? aspirin (ASPIRIN LOW DOSE) 81 mg Oral Tablet, Delayed Release (E.C.) Take 1 Tab by mouth daily. ??? docusate sodium (COLACE) 100 mg Oral Capsule Take 1 Cap by mouth 2 times daily for 30 days. 60 Cap 2 ??? LORazepam (ATIVAN) 0.5 mg Oral Tablet Take 1 Tab by mouth every 8 hours as needed for Anxiety. 15 Tab 0 ??? losartan-hydrochlorothiazide (HYZAAR) 50-12.5 mg Oral Tablet Take 1 Tab by mouth daily. 30 Tab 2 ??? metoprolol succinate ER (TOPROL-XL) 100 mg Oral Tablet Sustained Release 24 hr Take 1 Tab by mouth daily. 90 Tab 1 ??? fluticasone (FLONASE) 50 mcg/actuation Nasl [place], Suspension 2 Sprays by Nasal route daily. 1 Bottle 5 ??? ohfrahwk-ilqruvkdi-mwoxtekvofhwsf (CORTISPORIN) 3.5-10,000-1 mg/mL-unit/mL-% Otic Drops, Suspension Place 4 Drops into both ears 3 times daily. 10 mL 0 ??? polyethylene glycol (GLYCOLAX, MIRALAX) 17 gram Oral Powder in Packet Take 17 g by mouth daily for 30 days. 30 Packet 2 No current facility-administered medications for this visit. ALLERGIES No Known Allergies Past Medical History Past Medical History Diagnosis Date ??? Hypertension ??? Tobacco use 12/23/2015 Family History Family History Problem Relation Age of Onset ??? Heart Attack Mother 58 ??? Hearing Loss Neg Hx ??? Allergies Neg Hx ??? Migraines Neg Hx ??? Heart Disease Neg Hx ??? Thyroid Disease Neg Hx ??? Bleeding Prob Neg Hx ??? Cancer Neg Hx ??? Colon Cancer Neg Hx ??? Esophageal Cancer Neg Hx ??? Liver Cancer Neg Hx ??? Liver Disease Neg Hx ??? Rectal Cancer Neg Hx ??? Stomach Cancer Neg Hx Social History History Social History ??? Marital Status: Spouse Name: N/A ??? Number of Children: N/A ??? Years of Education: N/A Occupational History ??? Not on file. Social History Main Topics ??? Smoking status: Former Smoker -- 2.00 packs/day for 50 years Types: Pipe Quit date: 01/03/2016 ??? Smokeless tobacco: Not on file ??? Alcohol Use: 0.0 oz/week 2-3 Cans of beer per week Comment: beer and wine ??? Drug Use: No ??? Sexual Activity: Not on file Other Topics Concern ??? Not on file Social History Narrative PHYSICAL EXAM: Nursing note and vitals reviewed. Constitutional: the patient is oriented. HEENT: Normocephalic and atraumatic. Pupils are equal, round, and reactive to light. Neck supple. Cardiovascular: Normal rate, regular rhythm and normal heart sounds. Pulmonary/Chest: Breath sounds normal. Abdominal: The abdomen is soft and nontender to palpation. There is no organomegaly. There are no masses. A few bowel sounds are heard. Musculoskeletal: the patient exhibits no edema. Neurological: the patient is alert and oriented. Skin: Skin is warm and dry. Psychiatric: the patient has a normal mood and affect. RESULTS laboratory data have been unremarkable. Lab Results Component Value Date WBC 8.6 12/22/2015 HGB 15.0 12/22/2015 HCT 42.8 12/22/2015 MCV 90.2 12/22/2015 PLT 339 12/22/2015 Lab Results Component Value Date ALT 32 11/12/2014 AST 20 11/12/2014 ALKPHOS 67 11/12/2014 No results found for: AMYLASE, LIPASE Lab Results Component Value Date NA 133* 2015 K 4.0 2015 CL 97* 2015 CO2 21* 2015 BUN 14 2015 PROBLEM LIST Patient Active Problem List Diagnosis ??? Hyponatremia ??? Recurrent acute otitis media of both ears ??? Non morbid obesity due to excess calories ??? Elevated blood sugar ??? Essential hypertension ??? Pulmonary nodule, right ??? Former smoker ??? Uses hearing aid FINAL DIAGNOSIS 1. Constipation, chronic AMB COLONOSCOPY COMM ORDER VISIT ORDERS Orders Placed This Encounter Procedures ??? Colonoscopy Comm Order Scheduling Instructions: Go-lytely prep please. ASSESSMENT 1. Constipation. This represents a change in his baseline bowel habit. It's cause is not clear. It may be functional. He does not appear to be on medications likely to cause constipation. He does notfeel that laxatives have resolved his symptoms. He denies a prior colonoscopy or barium enema. Colon disease should be ruled out. Plan 1. We'll schedule him for a colonoscopy. 2. After that bowel cleansing, we will attempt to find a regimen that will allow him to have comfortable bowel movements. 1. The patient indicates understanding of these issues and agrees with the plan. 2. I reviewed the patient's medical information and medical history. 3. I have reviewed the past medical, family, and social history sections including the medications and allergies listed in the above medical record. This note was generated using Voice Recognition technology. It has been reviewed by the undersigned, however, may still contain unintended errors. Electronically signed by: Young Hobson MD, 04/24/2016 9:26 AM CC: Dora Hernandez MD documented in this encounter Miscellaneous Notes * Patient Instructions - Kathrine Bernard RMA - 04/24/2016 8:54 AM EDT You may be contacted by [...] as of this encounter Visit Diagnoses Diagnosis Constipation, chronic- Primary Unspecified constipation documented in this encounter Orders Nursing Count Last Ordered Date First Orde red Date AMB COLONOSCOPY COMM ORDER 1 04/24/2016 documented in this encounter Care Teams Dyeing Machine Feeder Relationship Specialty Start Date End Date Dora Hernandez MD [address] [facility] [address] [facility] [place] [address] PCP - General Family Medicine 12/24/15 documented as of this encounter
--- OUTSIDE RECORDS SUMMARY | 2024-09-12 12:48 | XMS_ITS | Encounter Summary ---
Author Organization [place] [address] Care Team Providers Care Seasonal Greenery Bundler Name Role Phone Dora Hrenandez MD Primary Care Provider Reason for Visit * Reason Onset Date Comments Constipation Appointment Needed 03/16/2016 Encounter Details Date Type Department Care Team (Late st Contact Info) Description 03/16/2016 Telephone SEP Gastro [facility] [address] [facility] [address] [place] [address] Young Hobson MD [address] [place] [address] Constipation; Appointment Needed Social History Tobacco Use Types Packs/Day Years [...] encounter Miscellaneous Notes * Telephone Encounter - Meghan Bradley - 03/16/2016 3:47 PM EDT Already on wait list. * Telephone Encounter - Qi Ga RN - 03/16/2016 3:38 PM EDT Pt can do magnesium citrate 1/2 of a bottle with 4 dulcolax laxative tabs. Then 4 hours later the other half of the bottle. Increase fluid intake. Mirilax 1 1/2 capfuls qd after that. I left all of this info on the am. Also place on cx list. Please. * Telephone Encounter - Caryn Martínez ABR-OE - 03/16/2016 1:45 PM EDT NPT calling as he has an appt 04/24 with PDW. She states he is constipated and very uncomfortable, he needs to be seen sooner than his appt 04/24. She states he is taking miralax once a day and metamucil once daily and still constipated. Please call pt documented in this encounter Plan of Treatment Not on file documented as of this encounter Visit Diagnoses Not on filedocumented in this encounter Care Teams Seasonal Greenery Bundler Relationship Specialty Start Date End Date Dora Hernandez MD [address] [place] [address] PCP - General Family Medicine 12/24/15 documented as of this encounter
--- OUTSIDE RECORDS SUMMARY | 2024-09-12 12:48 | XMS_ITS | Encounter Summary ---
Author Organization [place] [address] Care Team Providers Care Mobile Solutions Architect Name Role Phone Dora Hernandez MD Primary Care Provider Reason for Referral * Ultrasound (Routine) - Closed Specialty Diagnoses / Procedures Referred By Hal t Referred To Contact Radiology Diagnoses Thyroid lesion Procedures US THYROID Dora Hernandez MD [address] [place] [address] Phone: tel: fax: Referral ID Status Reason Start Date Expiration Date Visits Re quested Visits Authorized [id number] Closed 2015 12/25/2016 1 1 Reason for Visit * Ultrasound (Routine) - Closed Specialty Diagnoses / Procedures Referred By Contkaroline t Referred To Contact Radiology Diagnoses Thyroid lesion Procedures US THYROID Dora Hernandez MD [address] [facility] [place] [address] Phone: tel: fax: Referral ID Status Reason Start Date Expiration Date Visits Re quested Visits Authorized [id number] Closed 2015 12/25/2016 1 1 Encounter Details Date Type Department Care Team (Latest Contact Info) Description 01/14/2016 9:50 AM EDT - 01/14/2016 10:22 AM EDT Hospital Encounter [facility] [place] [address] Dora Hernandez MD [address] [facility] [place] [id number] Thyroid lesion Discharge Disposition: Home or Self Care Social [...] Name Priority Date/Time Associated Diagnosis Comments US THYROID Routine 01/14/2016 10:24 AM EDT Thyroid lesion documented in this encounter Results * US THYROID (01/14/2016 [...] follow-up to assess for stability,as detailed above. us Dora Hernandez MD [facility] US ORDERABLES Final Result documented in this encounter Visit Diagnoses Diagnosis Thyroid lesion documented in this encounter Care Teams Mobile Solutions Architect Relationship Specialty Start Date End Date Dora Hernandez MD [address] [place] [address] PCP - General Family Medicine 12/24/15 documented as of this encounter
--- OUTSIDE RECORDS SUMMARY | 2024-09-12 12:49 | XMS_ITS | Encounter Summary ---
Author Organization [place] [address] Care Team Providers Care Hazardous Waste Management Specialist Name Role Phone Unavailable Primary Care Provider Unavailabl e Reason for Visit * Reason Comments Extremity Laceration x 2:00pm was gettin g new knives out of package and lacerated left thumb. Laceration approx 2 inches. Bleeding controlled. Pt has less than two second cap refill. Can move thumb freely. Denies numbness. Encounter Details Date Type Department Care Team (Late st Contact Info) Description 07/17/2012 2:55 PM EDT - 07/17/2012 4:34 PM EDT Emergency [facility] [address] [place] [address] Tylor Mtz MD [address] [place] [phone] Laceration Discharge Disposition: Home or Self Care Social History Tobacco Use Types Packs/Day Years Used Date Smoking Tobacco: Former Alcohol Use Standard Drinks/Week Comments Yes 0 [...] Sign Reading Time Taken Comments Blood Pressure 165/83 07/17/2012 4:33 PM EDT Pulse 82 07/17/2012 4:33 PM EDT Temperature 36.8 ??C (98.2 ??F) 07/17/2012 2:58 PM ED T Respiratory Rate 18 07/17/2012 4:33 PM EDT Oxygen Saturation 95% 07/17/2012 4:33 PM EDT Inhaled Oxygen Concentration - - Weight 108.9 kg (240 lb) 07/17/2012 2:58 PM EDT Height 190.5 cm (6' 3 ) 07/17/2012 2:58 PM EDT Body Mass Index 30 07/17/2012 2:58 PM EDT documented in this encounter Discharge Instructions * Discharge Instructions* Josephine Ferguson PA-C - 07/17/2012 4:15 PM EDT 1. Clean with antibacterial soap and water 2. Suture removal in approximately 12 days 3. Watch for infection, redness, pus, fever 4. Lortab, may cause drowsiness, no tylenol with this do not drink alcohol, drive or work while taking pain medicine 5. Return if worse documented in this encounter Medications at Time of Discharge HYDROcodone-aceta minophen (VICODIN) 5-500 mg per tablet Take 1 Tab by mouth every 6 hours as needed for Pain for 10 doses. 10 Tab 0 07/17/2012 07/24/2012 LISINOPRIL ORAL Take by mouth. 12/22/2015 METOPROLOL SUCCINATE ORAL Take by mouth. 12/22/2015 documented as of this encounter Ordered Prescriptions Prescription Sig Dispense Quantity Refills Last Filled Start Date End Date HYDROcodone-acetam inophen (VICODIN) 5-500 mg per tablet Take 1 Tab by mouth every 6 hours as needed for Pain for 10 doses. 10 Tab 0 07/17/2012 07/24/2012 documented in this encounter Discharge Disposition Disposition Code Departure Means Destination Comment s Home or Self Care Pt AOX3. Skin WPD. Breathing easily. MD instructions and prescription given. Pt verbalized understanding. Pt discharged ambulatory in 's care. documented in this encounter Progress Notes * Unknown, Unknown - 07/17/2012 3:27 PM EDT * Unknown, Unknown - 07/17/2012 3:27 PM EDT * Unknown, Unknown - 07/17/2012 3:26 PM EDT * Unknown, Unknown - 07/17/2012 2:41 PM EDT * Unknown, Unknown - 07/17/2012 2:40 PM EDT documented in this encounter ED Notes * Josephine Ferguson PA-C - 07/17/2012 3:47 PM EDT Chief Complaint Patient presents with ??? Extremity Laceration x 2:00pm was getting new knives out of package and lacerated left thumb. Laceration approx 2 inches. Bleeding controlled. Pt has less than two second cap refill. Can move thumb freely. Denies numbness. HPI Comments: The patient is a 71-year-old male who presents to the emergency department today witha chief complaint of a left hand laceration. The patient states that he was getting a knife out of the package when he accidentally cut his left hand one of these knives. He is right-hand dominant. Last tetanus immunization was in 1994 and therefore this will be updated today. No paresthesias. No other injures or complaints. He presents for further evaluation and treatment. The history is provided by the patient. No Known Allergies Home Medications: Prior to Admission medications Medication Sig Start Date End Date Taking? Authorizing Provider LISINOPRIL ORAL Take by mouth. Yes Provider, Historical METOPROLOL SUCCINATE ORAL Take by mouth. Yes Provider, Historical Past Medical History: Past Medical History Diagnosis Date ??? Hypertension Social History: reports that he has quit smoking. He does not have any smokeless tobacco history onfile. He reports that he drinks alcohol. He reports that he does not use illicit drugs. Family History: No family history on file. Surgical History: History reviewed. No pertinent past surgical history. Review of Systems All other systems reviewed and are negative. Blood pressure 185/85, pulse 93, temperature 98.2 ??F (36.8 ??C), temperature source Oral, resp. rate 18, height 6' 3 (1.905 m), weight 240 lb (108.863 kg), SpO2 98.00%. Physical Exam Vitals reviewed. Constitutional: He is oriented to person, place, and time. He appears well- developed and well-nourished. HENT: Head: Normocephalic and atraumatic. Eyes: Pupils are equal, round, and reactive to light. Neck: Normal range of motion. Neck supple. Musculoskeletal: Normal range of motion. Neurological: He is alert and oriented to person, place, and time. No cranial nerve deficit. Skin: Skin is warm. Intact neurovascular and sensory exam, brisk capillary refill throughout. Exam reveals a 5 cm vertical laceration noted over the left first metacarpal region. Psychiatric: His behavior is normal. Procedures After verbal consent was obtained, the patient's laceration was anesthetized using local 1% lidocaine plain. The laceration was prepped irrigated and draped in the usual sterile fashion. Under sterile technique, the wound was explored for foreign bodies, no foreign bodies were noted. No tendon laceration. The wound edges were then well-approximated and brought together using a total of 13 simple 5-0 nylon sutures. A dressing and an milagros wrap were applied. Radiology/EKG/Labs: none ED Course: Appropriate laboratory and radiology studies reviewed Patient was seen and evaluated. Clean wound with antibacterial soap and water. Suture removal in approximately 10 to 12 days by pcp. Watch for infection. Return if worse. ED Clinical Impression: Acute left hand laceration, repaired Critical Care time Condition at Discharge/Transfer from Department: Stable Josephine Ferguson PA-C 07/17/12 1613 Cosigned by Tylor Mtz MD at 07/18/2012 1:26 PM EDT documented in this encounter Miscellaneous Notes * Miscellaneous - Unknown, Unknown - 07/18/2012 5:03 PM EDT documented in this encounter Plan of Treatment Not on file documented as of this encounter Visit Diagnoses Diagnosis Laceration Open wound(s) (multiple) of unspecified site(s), without mention of complication documented in this encounter Historical Medications * This list may reflect changes made after this encounter. METOPROLOL SUCCINATE ORAL Take by mouth. 12/22/2015 LISINOPRIL ORAL Take by mouth. 12/22/2015 added in this encounter
--- OUTSIDE RECORDS SUMMARY | 2024-09-12 12:49 | XMS_ITS | Encounter Summary ---
Author Organization [place] [address] Care Team Providers Care Stereoplotter Operator Name Role Phone Unavailable Primary Care Provider Unavailabl e Encounter Details Date Type Department Care Team (Late st Contact Info) Description 12/22/2015 - 12/22/2015 6:12 PM EST Emergency [facility] [address] [facility] [place] [address] Discharge Disposition: ED Dismiss - Never Arrived Social History Tobacco Use Types Packs/Day Years Used Date Smoking Tobacco: Never Assessed Sex and Gender Information Value Date Recorded Sex Assigned at Not on file Legal Sex Male 2:45 AM EDT Gender Identity Not on file Sexual Orientation Not on file documented as of this encounter Medications at Time of Discharge lisinopril-hydroc hlorothiazide (PRINZIDE;ZESTORE TIC) 20-12.5 mg Oral TabletIndications :Otitis media with rupture of tympanic membrane, bilateral Take 1 Tab by mouth daily. 12/23/2015 documented as of this encounter Discharge Disposition Disposition Code Departure Means Destination ED Dismiss - Never Arrived documented in this encounter Plan of Treatment Not on file documented as of this encounter Visit Diagnoses Not on filedocumented in this encounter Additional Health Concerns Assessment Noted Time A fall risk assessment has been complete d for the patient 10/07/2023 9:52 AM EST documented as of this encounter
--- OUTSIDE RECORDS SUMMARY | 2024-09-12 12:49 | XMS_ITS | Encounter Summary ---
Author Organization [place] [address] Care Team Providers Care Group Fitness Manager Name Role Phone Unavailable Primary Care Provider Unavailabl e Reason for Referral * Consultation (Routine) - Closed Specialty Diagnoses / Procedures Referred By Contac t Referred To Contact Diagnoses Otitis media with rupture of tympanic membrane, bilateral Ludwin Posada DO Phone: tel: fax: Reuben Jones MD [address] [facility] [address] [place] [address] Phone: tel: fax: Referral ID Status Reason Start Date Expiration Date Visits Re quested Visits Authorized [id number] Closed 07/29/2015 07/28/2016 1 1 Reason for Visit * Reason Comments Ear Problem Encounter Details Date Type Department Care Team (Late st Contact Info) Description 07/29/2015 10:30 AM EDT Office Visit [facility] [address] [place] [address] Ludwin Posada DO [address] [place] [address] Otitis media with rupture of tympanic membrane, bilateral (Primary Dx); Hearing loss, bilateral; Tinnitus, bilateral Social History Tobacco Use Types [...] Sign Reading Time Taken Comments Blood Pressure 134/68 07/29/2015 11:12 AM EDT Pulse 63 07/29/2015 11:12 AM EDT Temperature 37.1 ??C (98.7 ??F) 07/29/2015 11:12 AM E DT Respiratory Rate 14 07/29/2015 11:12 AM EDT Oxygen Saturation 99% 07/29/2015 11:12 AM EDT Inhaled Oxygen Concentration - - Weight 114.3 kg (252 lb) 07/29/2015 11:12 AM EDT Height 190.5 cm (6' 3 ) 07/29/2015 11:12 AM EDT Body Mass Index 31.5 07/29/2015 11:12 AM EDT documented in this encounter Ordered Prescriptions Prescription Sig Dispense Quantity Refills Last Filled Start Date End Date predniSONE (DELTASONE) 20 mg Oral TabletIndications: Otitis media with rupture of tympanic membrane, bilateral,Hearing loss, bilateral,Tinnitus , bilateral Take 2 tabs on day 1 and then 1 tab on days 2 through 4. 5 Tab 0 07/29/2015 6 amoxicillin (AMOXIL) 875 mg Oral TabletIndications: Otitis media with rupture of tympanic membrane, bilateral,Hearing loss, bilateral,Tinnitus , bilateral Take 1 Tab by mouth 2 times daily for 10 days. 20 Tab 0 07/29/2015 5 documented in this encounter Progress Notes * Ludwin Posada - 07/29/2015 11:14 AM EDT Subjective: Patient ID: Jac Garvin is a 74 y.o. male. Chief Complaint Patient presents with ??? Ear Problem Urgent Care Encounter HPI Patient is a 74 y.o. male here for bilateral ear fullness, ringing in ears. Onset of symptoms was gradual 1 month ago with unchanged course since that time. Nothing makes it better. Nothingmakes it worse. Patient has tried nothing. Patient states that the symptoms come and go. [place] pop in ears bilat over last month. Otorrhea There are no active problems to display for this patient. Past Medical History Diagnosis Date ??? Hypertension No past surgical history on file. Outpatient Prescriptions Marked as Taking for the 07/29/15 encounter (Office Visit) with Ludwin Posada, DO Medication Sig Dispense Refill ??? lisinopril-hydrochlorothiazide (PRINZIDE;ZESTORETIC) 20-12.5 mg Oral Tablet Take 1 Tab by mouthdaily. ??? amLODIPine (NORVASC) 10 mg Oral Tablet Take by mouth daily. ??? metoprolol succinate ER (TOPROL-XL) 100 mg Oral Tablet Sustained Release 24 hr Take 100 mg by mouth daily. ??? LISINOPRIL ORAL Take by mouth. ??? METOPROLOL SUCCINATE ORAL Take by mouth. No Known Allergies History Substance Use Topics ??? Smoking status: Former Smoker ??? Smokeless tobacco: Not on file ??? Alcohol Use: 0.0 oz/week 2-3 Cans of beer per week Comment: beer and wine History reviewed. No pertinent family history. Review of Systems Hearing loss Tinnitus bilat Objective: Filed Vitals: 07/29/15 1112 BP: 134/68 Pulse: 63 Temp: 98.7 ??F (37.1 ??C) TempSrc: Oral Resp: 14 Height: 6' 3 (1.905 m) Weight: 252 lb (114.306 kg) SpO2: 99% Body mass index is 31.5 kg/(m^2). Physical Exam Physical Exam Vitals Reviewed. Constitutional: Patient is oriented to person, place, and time. Patient appears well-developed and well-nourished. No distress. hard of hearing. HENT: Head: Normocephalic and atraumatic. Right Ear: External ear normal. Tympanic membrane - red, dried purulent material partially obstructing view. Left Ear: External ear normal. Tympanic membrane - same as above. boggy turbinates Neck: Normal range of motion. Skin: Skin is warm and dry. Assessment and Plan: There are no diagnoses linked to this encounter. 1. Otitis media with rupture of tympanic membrane, bilateral lisinopril- hydrochlorothiazide (PRINZIDE;ZESTORETIC) 20-12.5 mg Oral Tablet amLODIPine (NORVASC) 10 mg Oral Tablet metoprolol succinate ER (TOPROL-XL) 100 mg Oral Tablet Sustained Release 24 hr AMB REFERRAL TO ENT amoxicillin (AMOXIL) 875 mg Oral Tablet predniSONE (DELTASONE) 20 mg Oral Tablet 2. Hearing loss, bilateral amoxicillin (AMOXIL) 875 mg Oral Tablet predniSONE (DELTASONE) 20 mg Oral Tablet 3. Tinnitus, bilateral amoxicillin (AMOXIL) 875 mg Oral Tablet predniSONE (DELTASONE) 20 mg Oral Tablet No Follow-up on file. documented in this encounter Plan of Treatment Scheduled Referrals Name Type Priority Associated Diagnoses Orde r Schedule AMB REFERRAL TO ENT Outpatient Referral Routine Otitis Media With Rupture Of Tympanic Membrane, Bilateral Ordered: 07/29/2015 documented as of this encounter Visit Diagnoses Diagnosis Otitis media with rupture of tympanic membrane, bilateral- Primary Hearing loss, bilateral Tinnitus, bilateral Unspecified tinnitus documented in this encounter Historical Medications * This list may reflect changes made after this encounter. metoprolol succinate ER (TOPROL-XL) 100 mg Oral Tablet Sustained Release 24 hrIndications:Yelitza tis media with rupture of tympanic membrane, bilateral Take 100 mg by mouth daily. 2015 amLODIPine (NORVASC) 10 mg Oral TabletIndications :Otitis media with rupture of tympanic membrane, bilateral Take by mouth daily. 2015 lisinopril-hydroc hlorothiazide (PRINZIDE;ZESTORE TIC) 20-12.5 mg Oral TabletIndications :Otitis media with rupture of tympanic membrane, bilateral Take 1 Tab by mouth daily. 12/23/2015 added in this encounter
--- OUTSIDE RECORDS SUMMARY | 2024-09-12 12:49 | XMS_ITS | Encounter Summary ---
Author Organization [place] [address] Care Team Providers Care Production Line Worker Name Role Phone Unavailable Primary Care Provider Unavailabl e Encounter Details Date Type Department Care Team (Late st Contact Info) Description 12/18/2004 12:01 AM EST - 12/18/2004 11:59 PM EST Hospital Encounter [facility] Joseph Lake MD [address] [place] [facility] [address] [place] [address] Social History Tobacco Use Types Packs/Day Years Used Date Smoking Tobacco: Never Assessed Sex and Gender Information Value Date Recorded Sex Assigned at Not on file Legal Sex Male 2:45 AM EDT Gender Identity Not on file Sexual Orientation Not on file documented as of this encounter Plan of Treatment Scheduled Orders Name Type Priority Associated Diagnoses Orde r Schedule FL IVP REUSE TECHNICIAN Imaging Routine Once for 1 Occ urrences starting 12/31/2009 until 12/31/2009, 1 completed documented as of this encounter Procedures Procedure Name Priority Date/Time Associated Diagnosis Comments FL IVP REUSE TECHNICIAN Routine 12/18/2004 11:20 AM EST documented in this encounter Results * FL IVP REUSE TECHNICIAN (12/18/2004 11:20 AM EST) Anatomical Region Laterality [...] normally and empties well. Impression- Normal IVP. Joseph Lake MD [facility]ISTORICA L Final Result documented in this encounter Visit Diagnoses Not on filedocumented in this encounter
--- OUTSIDE RECORDS SUMMARY | 2024-09-12 12:49 | XMS_ITS | Encounter Summary ---
Author Organization [place] [address] Care Team Providers Care Qc Tech Name Role Phone Unavailable Primary Care Provider Unavailabl e Encounter Details Date Type Department Care Team (Latest Contact Info) Description 11/12/2014 11:00 AM EST - 11/12/2014 11:59 PM EST Hospital Encounter [facility] [address] [place] [address] Unspecified essential hypertension (Primary Dx); Other and unspecified hyperlipidemia Discharge Disposition: Home or Self Care Social [...] this encounter Medications at Time of Discharge LISINOPRIL ORAL Take by mouth. 12/22/2015 METOPROLOL SUCCINATE ORAL Take by mouth. 12/22/2015 documented as of this encounter Discharge Disposition Disposition Code Departure Means Destination Home or Self Care documented in this encounter Plan of Treatment Scheduled Orders Name Type Priority Associated Diagnoses Orde r Schedule OP VENIPUNCTURE CHARGE Lab Timed Unspecified essential hypertension Other and unspecified hyperlipidemia One Time for 1 Occurrences starting 11/12/2014 until 11/12/2014 documented as of this encounter Procedures Procedure Name Priority Date/Time Associated Diagnosis Comments PROSTATE SPECIFIC ANTIGEN (SCREENING) Routine 11/12/2014 11:16 AM EST Unspecified essential hypertension Other and unspecified hyperlipidemia CBC Routine 11/12/2014 11:16 AM EST Unspecified essential hypertension Other and unspecified hyperlipidemia THYROID STIMULATING HORMONE Routine 11/12/2014 11:16 AM EST Unspecified essential hypertension Other and unspecified hyperlipidemia T4, FREE (THYROXINE) Routine 11/12/2014 11:16 AM EST Unspecified essential hypertension Other and unspecified hyperlipidemia HEMOGLOBIN A1C Routine 11/12/2014 11:16 AM EST Unspecified essential hypertension Other and unspecified hyperlipidemia LIPID SCREEN Routine 11/12/2014 11:16 AM EST Unspecified essential hypertension Other and unspecified hyperlipidemia COMPREHENSIVE METABOLIC PANEL Routine 11/12/2014 11:16 AM EST Unspecified essential hypertension Other and unspecified hyperlipidemia documented in this encounter Results * (ABNORMAL) T4, FREE (THYROXINE) (11/12/2014 11:16 AM EST) Free T4 2.10(H) 0.93 - 1.70 ng/dL [facility] Blood specimen (specimen) UPPER LIMB STRUCTURE / Unknown 11/12/2014 11:16 AM EST 11/12/2014 2:08 PM EST Joseph Lake MD CHEMISTRY ORDERABLES Final Result Performing Organization Address City/[facility]/ZIP Co de Phone Number [facility] [address] [place] [address] * THYROID STIMULATING HORMONE (11/12/2014 11:16 AM EST) TSH 1.040 0.270 - 4.200 mcIU/mL [facility] Blood specimen (specimen) UPPER LIMB STRUCTURE / Unknown 11/12/2014 11:16 AM EST 11/12/2014 2:08 PM EST Joseph Lake MD CHEMISTRY ORDERABLES Final Result Performing Organization Address City/[facility]/ZIP Co de Phone Number [facility] [address] [place] [address] * (ABNORMAL) COMPREHENSIVE METABOLIC PANEL (11/12/2014 11:16 AM EST) Sodium 134(L) 136 - 145 mmol/L [facility] Potassium 5.1(H) 3.5 - 5.0 mmol/L [facility] Chloride 95(L) 98 - 107 mmol/L [facility] Total CO2 25 22 - 29 mmol/L [facility] Anion Gap 14 7 - 16 mmol/L [facility] Calcium 9.6 8.8 - 10.2 mg/dL [facility] Glucose Lvl 126(H) 82 - 100 mg/dL [facility] BUN 18 8 - 23 mg/dL [facility] Creatinine 1.08 0.67 - 1.30 mg/dL [facility] Albumin 4.7(H) 3.2 - 4.6 gm/dL [facility] Total Protein 7.4 6.4 - 8.3 gm/dL [facility] Bili Total 0.8 0.1 - 1.4 mg/dL [facility] AST 20 <=40 IU/L [facility] ALT 32 <=41 IU/L [facility] Alk Phos 67 40 - 129 IU/L [facility] GFR Afr Am >60 [facility] Comment: GFR is estimated using creatinine, age, gender, and race. ??GFR has been validated for patients between 18 and 70 years of age. GFR has not been validated for women, patients with serious comorbid conditions, or persons with extremes of body size, muscle mass, or nutritional status. ??For additional information: ??www.kidney.org. GFR Non Afr Am >60 [facility] Blood specimen (specimen) UPPER LIMB STRUCTURE / Unknown 11/12/2014 11:16 AM EST 11/12/2014 2:08 PM EST us Joseph Lake MD CHEMISTRY ORDERABLES Edite d Result - Final [facility] [address] [place] [address] * (ABNORMAL) LIPID SCREEN (11/12/2014 11:16 AM EST) Cholesterol 231(H) <=200 mg/dL [facility] Comment: < 200 ?Desirable 200 - 239 ? Borderline High >= 240 ?High Triglyceride 162(H) <=150 mg/dL [facility] Comment: < 150 ? Normal 150 - 199 ?Borderline High 200 - 499 ?High ??>= 500 ? Very High HDL 67 >=40 mg/dL [facility] Comment: ?? > 60 ?Optimal 40 - 60 ?Acceptable ?? < 40 ?Low LDL Calculated 132(H) <=100 mg/dL [facility] Comment: ??< 100 ?Optimal 100 - 129 ? Near or above optimal 130 - 159 ? Borderline High 160 - 189 ? High >= 190 ?Very High Blood specimen (specimen) UPPER LIMB STRUCTURE / Unknown 11/12/2014 11:16 AM EST 11/12/2014 2:08 PM EST us Joseph Lake MD CHEMISTRY ORDERABLES Edite d Result - Final [facility] [address] [place] [address] * PROSTATE SPECIFIC ANTIGEN (SCREENING) (11/12/2014 11:16 AM EST) Total PSA 2.43 ng/mL [facility] Comment: 2009 AUA Best Practice Statement Guidelines-Age Adjusted Reference Intervals: Age Range ? Whites ?Americans ? Americans 40-49 years ? 0-2.5 ng/mL ? 0-2.0 ng/mL ? 0-2.0 ng/mL 50-59 years ? 0-3.5 ng/mL ? 0-4.0 ng/mL ? 0-3.0 ng/mL 60-69 years ? 0-4.5 ng/mL ? 0-4.5 ng/mL ? 0-4.0 ng/mL 70-79 years ? 0-6.5 ng/mL ? 0-5.5 ng/mL ? 0-5.0 ng/mL [facility] uses the Agent [employer] Total PSA assay, which is approved [...] Joseph Lake MD CHEMISTRY ORDERABLES Final Result [facility] [address] [place] [address] * HEMOGLOBIN A1C (11/12/2014 11:16 AM EST) Hgb A1c 5.4 <=7.0 % [facility] Comment: Initial Diagnostic Criteria < 5.7 % ?Normal 5.7 - 6.4 % ? At risk for diabetes mellitus >= 6.5 % ?Consistent with diabetes mellitus Diabetes monitoring Target Value (ADA recommended): ?< 7 % Blood specimen (specimen) UPPER LIMB STRUCTURE / Unknown 11/12/2014 11:16 AM EST 11/12/2014 2:03 PM EST Joseph Lake MD CHEMISTRY ORDERABLES Final Result Performing Organization Address City/[facility]/ZIP Co de Phone Number [facility] [address] [place] [address] * (ABNORMAL) CBC (11/12/2014 11:16 AM EST) WBC 11.3(H) 4.0 - 11.0 x10(3)/mcL [facility] RBC 4.97 4.30 - 5.81 x10(6)/mcL [facility] Hgb 16.3 13.5 - 17.1 gm/dL [facility] Hct 47.6 38.9 - 51.6 % [facility] MCV 95.8 82.5 - 99.8 fL [facility] MCH 32.8 27.0 - 34.3 pg [facility] MCHC 34.3 32.1 - 35.3 gm/dL [facility] RDW 13.5 11.5 - 15.0 % [facility] Platelet 334 144 - 423 x10(3)/mcL [facility] MPV 9.0 6.8 - 10.8 fL [facility] Blood specimen (specimen) UPPER LIMB STRUCTURE / Unknown 11/12/2014 11:16 AM EST 11/12/2014 11:17 AM EST Joseph Lake MD HEMATOLOGY ORDERABLES Cynthia l Result [facility] [address] [place] [address] documented in this encounter Visit Diagnoses Diagnosis Unspecified essential hypertension- Primary Other and unspecified hyperlipidemia documented in this encounter
--- OUTSIDE RECORDS SUMMARY | 2024-09-12 12:49 | XMS_ITS | Encounter Summary ---
Author Organization [place] [address] Care Team Providers Care House Worker Name Role Phone Unavailable Primary Care Provider Unavailabl e Reason for Visit * Reason Comments Dizziness has been having ring ing in his ears since July, now starting to feel dizzy and nauseated Encounter Details Date Type Department Care Team (Late st Contact Info) Description 12/22/2015 6:13 PM EST - 12/22/2015 6:26 PM EST Emergency [facility] [address] [place] [address] Discharge Disposition: Left Without Being Seen Social History Tobacco Use Types Packs/Day Years [...] Discharge Disposition Disposition Code Departure Means Destination Left Without Being Seen documented in this encounter Plan of Treatment Not on file documented as of this encounter Visit Diagnoses Not on filedocumented in this encounter
[2024-09-12 13:13] LABS: Basophils # 0.1 K/mm3 (0-0.2); Basophils % 1.5 % (0.1-2.0); Eosinophils # 0.1 K/mm3 (0.0-0.4); Eosinophils % 2.3 % (0.1-12.0); Hematocrit 32.6 % (42.0-52.0); Hemoglobin 10.5 g/dL (14.1-18.0); Lymphocytes # 1.1 K/mm3 (0.7-4.5); Lymphocytes % 21.5 % (10-50); Mean Corpuscular HGB Conc 32.1 g/dL (31.8-35.4); Mean Corpuscular Hemoglobin 30.2 pg (27.0-31.2); Mean Corpuscular Volume 94.2 fl (80-94); Mean Platelet Volume 8.4 fl (7.4-10.4); Monocytes # 0.5 K/mm3 (0.1-1.0); Monocytes % 10.5 % (1.7-9.3); Neutrophils # 3.3 K/mm3 (1.8-7.8); Neutrophils % 64.3 % (37.0-80.0); Platelet Count 242 K/mm3 (142-424); Red Blood Count 3.46 M/mm3 (4.60-6.20); Red Cell Distribution Width 16.6 % (11.5-17.5); White Blood Count 5.1 K/mm3 (4.8-10.8)
--- NOTE | 2024-09-12 13:15 | CA_ITS ---
APPROVED REPORT EXAM: Comprehensive 2D, Doppler, and color-flow Echocardiogram Sales Project Administrator: Preeti Dawson RVT Ht: 6 ft 3 in Wt: 242lbs BSA: 2.38 BP: 144/38 mmHg Indications: A-FIB,CP,SOA,EDEMA,CAD,SEVERE ,SMOKER 2D Dimensions IVSd 1.23 cm M: 0.6-1.2 LVEF (Visual) 51.20 % PWd 1.04 cm M: 0.6 - 1.2 LA Volume 90.90 mL LVDd 4.80 cm M: 4.2 - 5.9 LA Volume Index 38.19 mL/m2 (M/F) 16-34 LVDs 3.89 cm M: 2.5 - 4.0 GL Strain -17.1 % M-Mode Dimensions RVDd 4.45 cm (0.9-2.6) LA Diam 5.92 cm (1.9-4.0) LVDd 5.76 cm (3.5-5.7) IVSd 0.98 cm (0.6-1.1) PWd 0.84 cm (0.6-1.1) EDV (Teich) 163.90 mL TAPSE 2.32 (<1.7) Aortic Valve GERBER Index 0.39 cm2/m2 AoV Peak Tavares. 347.0 (50-130 cm/s) AO Peak GR. 48.60 mmHg AO Mean GR. 27.30 (<5 mmHg) AO VTI 83.4 (18-25 cm) GERBER (VTI) 0.94 (2.5-4.5 cm2) Pulmonary Valve PV Peak Velocity 94.0 (50-150 cm/s) Tricuspid Valve TR P. Velocity 380.00 cm/s RAP Estimate 10.00 mmHg RVSP 67.90 mmHg Left Ventricle The left ventricle is normal size. The left ventricular systolic function is mildly reduced. There is increased LV wall thickness. There is mild global hypokinesis present. The septum is asynchronous. Diastolic function is indeterminate. LVEF is 45%. Right Ventricle Right ventricle is moderately dilated. Right ventricle is mildly to moderately hypokinetic. Atria Left atrium is moderately dilated. Right atrium is moderately dilated. There is no Doppler evidence of interatrial shunt. Aortic Valve Aortic valve is moderately thickened. Moderate aortic stenosis is present. GERBER by 2D planimetry is 1.3 cm???. GERBER by continuity equation is 1.1 cm???. Peak velocity 3.6 m/s. Mean AV gradient 30 mmHg. Max AV gradient 52 mmHg. Trace aortic regurgitation. Mitral Valve The mitral valve leaflets are mildly thickened. No evidence of mitral valve stenosis. Mild mitral regurgitation. Tricuspid Valve The tricuspid valve leaflets are thin and pliable. Moderate tricuspid regurgitation. RVSP is 55-60 mmHg. Pulmonic Valve The pulmonary valve is normal in structure. Mild pulmonic regurgitation. Great Vessels The aortic root is normal in size. The ascending aorta is not well-visualized. The IVC is dilated. Pericardium There is a small sized, posterior pericardial effusion present. The largest pocket measures 0.8 cm in diastole. No echo indications of tamponade. Other Information Study Quality: Fair Conclusion Mildly reduced LV systolic function (LVEF 45%). Asynchronous septum. Moderate RV dilation with mild to moderate reduction in RV function. Biatrial dilation. Moderate to severe (GERBER by 2D planimetry is 1.3 cm???. GERBER by continuity equation is 1.1 cm???. Peak velocity 3.6 m/s. Mean AV gradient 30 mmHg. Max AV gradient 52 mmHg) Moderate TR. Mild MR. Markedly elevated RVSP 55-60 mmHg. Small sized, posterior pericardial effusion present. The largest pocket measures 0.8 cm in diastole. No echo indications of tamponade. Electronically signed by : Cony Stevenson MD 09/13/2024 09:22:17
[2024-09-12 13:47] LABS: Alanine Aminotransferase 20 U/L (12-78); Albumin Level 3.9 g/dl (3.5-5.0); Alkaline Phosphatase 134 U/L (38-126); Anion Gap 17.5 mEq/L (5-15); Aspartate Amino Transferase 24 U/L (17-59); Bilirubin,Direct 0.3 mg/dl (0.0-0.4); Bilirubin,Indirect 0.7 mg/dL (0.0-0.9); Bilirubin,Unconjugated 0.7 mg/dL (0.0-1.1); Blood Urea Nitrogen 28 mg/dl (9-20); Calcium 8.1 mg/dl (8.4-10.2); Carbon Dioxide 19 mmol/L (22.0-30.0); Chloride 107 mmol/L (98-107); Chol/HDL Ratio 2.8 (1-3.5); Cholesterol 121 mg/dl (140-200); Estimated Glomerular Filt Rate 53 ml/min (>60); GFR (African American) 64 ML/MIN (>60); Glucose 97 mg/dl (74-100); HDL Cholesterol 43 mg/dl (40-60); Potassium 4.5 mmoL/L (3.5-5.1); Sodium 139 mmol/L (136-145); Total Protein,Serum 6.7 g/dl (6.3-8.2); Triglycerides 81 mg/dl (30-150); VLDL Cholesterol 16 mg/dL (0-40)
[2024-09-12 13:59] LABS: Direct LDL Cholesterol 71.75 mg/dL (100-129)
== END 2024-09-12 23:59 | disposition home or self-care (01) ==
PROVIDERS: PCP Family Medicine; Visit Provider Internal Medicine
DX: I25.10 Atherosclerotic heart disease of native coronary artery without angina pectoris (principal); R06.09 Other forms of dyspnea; I48.91 Unspecified atrial fibrillation
CPT/HCPCS: 36415; 80048; 80061; 80076; 85025; 93225; 93227; 93306

== ENCOUNTER 2025-04-12 14:28 | Outpatient (CLI) | payer MEDICARE, SELFPAY ==
--- NOTE | 2025-04-12 14:30 | US_ITS ---
FINAL REPORT CLINICAL HISTORY: N17.9 - Acute kidney failure, unspecified FINDINGS: RENAL ULTRASOUND Ultrasound images of the kidneys were obtained. The right kidney measures 12.9 cm in length. The left kidney measures 13.6 cm in length. There is normal cortical echogenicity. No hydronephrosis. Shadowing is probably due to vascular calcification. IMPRESSION: Normal renal ultrasound. Reviewed, Interpreted and Dictated by David Odom MD Transcribed by Zari Saldana Authenticated and [facility]
--- NOTE | 2025-04-12 14:30 | US_ITS ---
FINAL REPORT CLINICAL HISTORY: acute renal failure COMPARISON: None FINDINGS: ULTRASOUND BLADDER WITH POST VOID RESIDUAL Bladder volumes were estimated based on 3 dimensional measurements, pre- and postvoid. Prevoid bladder volume: 142 mls Postvoid bladder volume: No postvoid residual Prostate measures 5.0 x 3.6 cm. IMPRESSION: No postvoid residual.. Reviewed, Interpreted and Dictated by David Odom MD Transcribed by Zari Saldana Authenticated and . [facility]
--- OUTSIDE RECORDS SUMMARY | 2025-04-12 14:33 | XMS_ITS | Clinical Summary ---
Author Organization [facility] Address [address] [place] [address] Care Team Providers Care Leadership Development Manager Name Role Phone Dora Hernandez MD Primary Care Provider [phone] Allergies No known active allergies Medications ezetimibe [...] 1 twice per day as needed Active ergocalciferol (Vitamin D-2) 1.25 MG (15471 UT) capsule Take 1 capsule (50,000 Units) by mouth 1 (one) time per week. Active ferrous sulfate 325 (65 Fe) MG tablet Take 1 tablet (325 mg) by mouth 1 (one) time each day with breakfast. Active pantoprazole (Protonix) 40 MG EC tablet Take 1 tablet (40 mg) by mouth 1 (one) time each day before breakfast. Do not crush, chew, or split. Active furosemide (Lasix) 40 MG tablet Take 1 tablet (40 mg) by mouth 1 (one) time each day. Only as needed Active apixaban (Eliquis) 2.5 MG tablet Take 1 tablet (2.5 mg) by mouth 2 (two) times a day. 180 tablet 1 11/28/2024 Active aspirin 81 MG EC tablet Take 1 tablet (81 mg) by mouth 1 (one) time each day. 90 tablet 3 11/28/2024 Active Active Problems Problem Noted Date Diagnosed Date Abnormal findings on diagnos tic imaging of heart and coronary circulation 10/31/2024 Alcohol dependence, daily use 10/31/2024 Anemia 10/31/2024 Atypical angina 10/31/2024 Neuropathy 10/31/2024 Right bundle branch block 10/31/2024 Weight loss, unintentional 10/31/2024 Cardiac murmur, unspecified 10/31/2024 Renal cyst 10/31/2024 Renal mass 10/31/2024 Dyspnea 10/31/2024 GI bleed 10/26/2024 Ankle swelling 10/26/2024 Lightheaded 10/26/2024 Chronic diastolic CHF (congestive heart failure) 10/19/2024 Moderate aortic stenosis 10/19/2024 Low serum cortisol level 10/18/2024 Atrial fibrillation 10/18/2024 Acute blood loss anemia 10/16/2024 Acute kidney injury 10/16/2024 Bradycardia 10/16/2024 Hyperkalemia 10/16/2024 Melena 10/16/2024 Neurogenic bladder 10/16/2024 Paroxysmal atrial fibrillation 03/30/2024 Edema 03/30/2024 Shortness of breath 03/30/2024 Aortic stenosis 03/30/2024 Right renal mass 03/13/2024 Overview (10/26/2024): Seen on RUQ US done at [facility] 03/07/24. Pt is currently admitted. Will d/w pt at f/u appt. Heart murmur 03/31/2023 Enlarged prostate with urinary retention 023 Lumbar degenerative disc disease 02/25/2023 Bilateral hearing loss 04/13/2022 BPH without urinary obstruction 09/12/2021 Seasonal allergic rhinitis 09/12/2021 Hyperlipidemia 04/17/2021 Obesity, Class I, BMI 30-34.9 2019 Peripheral polyneuropathy 2019 Situational anxiety 2019 Lipoma of back 06/19/2019 Mass of skin of right shoulder 06/19/2019 Primary osteoarthritis of both knees 06/19/2019 Uses hearing aid 04/02/2016 Pulmonary nodule, right 2015 Essential hypertension 12/23/2015 Elevated blood sugar 12/22/2015 Hyponatremia 12/22/2015 Non morbid obesity due to excess calories 2015 Recurrent acute otitis media of both ears 2015 Family History Medical History Relation Name Comments No Known Problems Father Heart failure Mother Relation Name Status Comments Father Mother Social History Tobacco Use Types Packs/Day Years Used Date Smoking Tobacco: Never Assessed PHQ-2 Answer Date Recorded Patient Health Questionnaire-2 Score 0 11/03/2024 PHQ-9 Answer Date Recorded Patient Health Questionnaire-9 Score 0 11/03/2024 Sex and Gender Information Value Date Recorded Sex Assigned at Not on file Legal Sex Male 4:06 PM EDT Gender Identity Not on file Sexual Orientation Not on file Last Filed Vital Signs Vital Sign Reading Time Taken Comments Blood Pressure 152/63 11/28/2024 1:00 PM EST Pulse 61 11/28/2024 1:00 PM EST Temperature 36.4 C (97.5 F) 11/28/2024 9:15 AM EST Respiratory Rate 13 11/28/2024 11:00 AM EST Oxygen Saturation 96% 11/28/2024 1:00 PM EST Inhaled Oxygen Concentration - - Weight 104 kg (228 lb 6.3 oz) 11/28/2024 6:46 AM EST Height 190.5 cm (6' 3 ) 11/20/2024 5:00 PM EST Body Mass Index 28.55 11/20/2024 5:00 PM EST Plan of Treatment Upcoming Encounters Date Type Department Care Team (Late st Contact Info) Description 04/20/2025 9:00 AM EDT Appointment Cardiac Imaging [address] [place] [address] 04/20/2025 10:30 AM EDT Office Visit [facility] [place] [address] [facility] [place] [address] Rahat Luna MD [address] [place] [address] Health Maintenance Due Date Last Done Comments [facility]-/Child/Adol SDOH Screenings 1942 [facility]- SDOH Screenings 1960 [facility]-Adult SDOH Screenings 1960 [facility]-Zoster Vaccines (1 of 2) 1992 [facility]-DTaP,Tdap,and Td Vaccines (1 - Tdap) 07/18/2012 07/17/2012 [facility]-RSV Vaccine: 60+ Years or (1 - 1-dose 75+ series) 2017 [id number]-52 Vaccine (4 - season) 2024 09/29/2021, 01/03/2021, 12/13/2020 [facility]-Medicare Annual Wellness (AWV) 10/07/2024 10/07/2023, 09/29/2022, 04/17/2021, Additional history exists [facility]-Depression Screening 11/03/2025 11/03/2024, 10/25 [facility]-Pneumococcal Vaccine: 50+ Years Completed 06/19/2019, 2015 [facility]-Obesity Intervention Completed 025, 11/03/2024, 05/19/2024 [facility]-Influenza Vaccine Completed 11/07/2024 , 07/27/2023, 09/29/2022, Additional history exists HPV Vaccines Aged Out No longer eligi ble based on patient's age to complete this topic [facility]-HIB Vaccines Aged Out No longer e [...] on patient's age to complete this topic Medical Devices Implanted Type Area Nitrocellulose Operator Device Identifier Shelf Expiration Date Model / Serial / Lot Watchman Fxd Curve Sngl 10mm - [id number] Implanted:Qty : 1 on 11/28/2024 by Rahat Luna MD at [facility] [id number] 02/15/2026 [id number] / / [id number] Device Watchman Flx Pro Honey Closure 27mm - [id number] Implanted:Qty : 1 on 11/28/2024 by Rahat Luna MD at [facility] [id number] 11/29/2026 [id number] / / [id number] Device Watchman Flx Pro Procedure - [id number] Implanted:Qty : 1 on 11/28/2024 by Rahat Luna MD at [facility] [id number] / / Insurance [employer] MEDICARE Advance Directives * Full Code (Latest Code Status on File) Date Activated Date Inactivated Comments 11/28/2024 9:07 AM 11/28/2024 5:57 PM Question Answer Comments Patient has decision-making capacity? Yes Care Teams Leadership Development Manager Relationship Specialty Start Date End Date Dora Hernandez MD [address] [place] [address] PCP - General 05/19/24
[2025-04-12 15:27] LABS: Basophils # 0.1 K/mm3 (0-0.2); Basophils % 0.9 % (0.1-2.0); Eosinophils # 0.1 Kmm3 (0.0-0.4); Eosinophils % 1.2 % (0.1-12.0); Hematocrit 28.1 % (42.0-52.0); Hemoglobin 9.3 g/dL (14.1-18.0); Immature Granulocytes # 0.03 10^3uL; Immature Granulocytes % 0.5 %; Lymphocytes # 0.8 K/mm3 (0.7-4.5); Lymphocytes % 13.2 % (10-50); Mean Corpuscular HGB Conc 33.1 g/dL (31.8-35.4); Mean Corpuscular Volume 96.6 fl (80-94); Mean Platelet Volume 9.4 fl (7.4-10.4); Monocytes # 0.8 K/mm3 (0.1-1.0); Neutrophils # 4.1 K/mm3 (1.8-7.8); Neutrophils % 71.2 % (37.0-80.0); Nucleated Red Blood Cells # 0 10^3/uL; Nucleated Red Blood Cells % 0 %; Platelet Count 195 K/mm3 (142-424); Red Blood Count 2.91 M/mm3 (4.60-6.20); Red Cell Distribution Width 15.3 % (11.5-17.5); Red Cell Distribution Width-SD 55.2 fL; White Blood Count 5.8 K/mm3 (4.8-10.8)
[2025-04-12 15:40] LABS: Alanine Aminotransferase 14 U/L (12-78); Albumin Level 4.3 g/dl (3.5-5.0); Albumin/Globulin Ratio 1.3 (1.1-1.8); Alkaline Phosphatase 133 U/L (38-126); Anion Gap 11.2 mEq/L (5-15); Aspartate Amino Transferase 22 U/L (17-59); Bilirubin,Total 0.9 mg/dl (0.2-1.3); Blood Urea Nitrogen 32 mg/dl (9-20); Calcium 9.2 mg/dl (8.4-10.2); Carbon Dioxide 20 mmol/L (22.0-30.0); Chloride 107 mmol/L (98-107); Estimated Glomerular Filt Rate 30 ml/min (>60); GFR (African American) 37 ML/MIN (>60); Globulin 3.4 g/dL (1.3-3.2); Glucose 137 mg/dl (74-100); Potassium 4.2 mmoL/L (3.5-5.1); Sodium 134 mmol/L (136-145); Total Protein,Serum 7.7 g/dl (6.3-8.2)
== END 2025-04-12 23:59 | disposition home or self-care (01) ==
PROVIDERS: PCP Family Medicine; Visit Provider Internal Medicine
DX: N17.9 Acute kidney failure, unspecified (principal)
CPT/HCPCS: 36415; 76770; 76857; 80053; 85025